=== PATIENT | male | born 1985 | race Asian ===

== ENCOUNTER 2018-03-07 13:35 | Inpatient (IN) | END 2018-03-11 12:48 | disposition home or self-care (01) | DRG 602 ==

== ENCOUNTER 2018-05-19 23:58 | Emergency (ER) | END 2018-05-20 01:41 | disposition left against medical advice (07) ==

== ENCOUNTER 2018-08-08 14:16 | Inpatient (IN) | payer MEDICAID ==
[~2018-08-08] VITALS: Ht 185.4 cm; Wt 176.3 kg
[~2018-08-08 14:16] MED LIST: CLO15CR1 TOP; FURO40TA4 PO; LEVA15HF6 INH; Nicotine (14 Mg/24 Hr) TRANSDERM
[2018-08-08] MEDS ORDERED: ALBUTEROL 0.5% (NEB) 2.5 MG/0.5 ML AMP INH STA (14:34)
[2018-08-08] MEDS ORDERED: METHYLPREDNISOLONE 125 MG INJ IV STA (14:34)
[2018-08-08] MEDS ORDERED: IPRATROPIUM (NEB) 0.5 MG/2.5 ML AMP INH STA (14:34)
[2018-08-08] MEDS ORDERED: VANCOMYCIN 1 GM (PMX) 250 ML IVPB STA (15:17)
[2018-08-08] MEDS ORDERED: PIPER-TAZO 3.375 GM IV (PMX) 100 ML IVPB ONE (15:30)
[2018-08-08] MEDS ORDERED: NACL 0.9% 3 ML SYG IV SCH (17:30)
[2018-08-08] MEDS ORDERED: ONDANSETRON 4 MG INJ IV PRN (17:30)
--- NOTE | 2018-08-08 17:47 | HP ---
Date/Time of Note Date/Time of Note DATE: 08/08/18 TIME: 17:33 Assessment/Plan VTE Prophylaxis Pharmacological prophylaxis: LMWH Lines/Catheters IV Catheter Type (from [facility]): Saline Lock Assessment/Plan Assessment/Plan 32M morbidly obese presents with hypercapnic respiratory failure and PNA #Sepsis #Pneumonia - Bilateral patchy infiltrates on CXR, tachy to 120s, WBC 16. - Cautious IV fluids - IV ceftriaxone and azithromycin for CAP. - Unfortunately patient exceeds the weight limit for CT scanner. #Hypoxic and hypercapnic respiratory failure - Likely from obesity, exacerbated by pneumonia - Admit to ICU - Will trial BiPAP overnight; if unsuccessful may need intubation. DVT: lovenox GI: Protonix IV Result Diagram: 08/08/18 1551 08/08/18 1551 Results 24hrs Laboratory Tests Test 08/08/18 14:34 08/08/18 15:51 Blood Gas Specimen Source Blood arterial Arterial Blood Date Drawn 08/08/2018 3:14:48 PM Arterial Blood pH (Temp corrected) 7.206 *L Arterial Blood pCO2 (Temp correct) 102.4 *H Arterial Blood pO2 (Temp corrected) 71.5 L Arterial Blood HCO3 39.7 H Arterial Blood Base Excess 7.6 H Arterial Blood Oxygen Saturation 90.3 L James Test ACCEPTAB Arterial Blood Gas Puncture Site Right Radial Arterial Blood Carboxyhemoglobin 2.6 Arterial Blood Methemoglobin 0.2 Oxyhemoglobin Percent 87.8 L Blood Gas Temperature 37.0 Blood Gas Modality ROOM AIR FiO2 21.0 Blood Gas Critical Value Read Back DR. WALLACE Blood Gas Notified Whom Ghassan Blood Gas Notified Time 08/08/2018 3:24:18 PM White Blood Count 16.1 #H Red Blood Count 5.75 Hemoglobin 13.0 L Hematocrit 48.0 Mean Corpuscular Volume 83.5 Mean Corpuscular Hemoglobin 22.6 L Mean Corpuscular Hemoglobin Concent 27.1 L Red Cell Distribution Width 18.6 H Platelet Count 298 Mean Platelet Volume 8.7 Immature Granulocytes % 1.400 H Neutrophils % 75.5 Lymphocytes % 13.3 L Monocytes % 8.2 Eosinophils % 1.2 Basophils % 0.4 Nucleated Red Blood Cells % 1.5 H Immature Granulocytes # 0.230 H Neutrophils # 12.2 H Lymphocytes # 2.2 Monocytes # 1.3 H Eosinophils # 0.2 Basophils # 0.1 Nucleated Red Blood Cells # 0.3 H Prothrombin Time 14.8 Prothrombin Time Ratio 1.2 INR International Normalized Ratio 1.15 Activated Partial Thromboplast Time 37.9 H Sodium Level 139 Potassium Level 4.4 Chloride Level 94 L Carbon Dioxide Level 35 H Anion Gap 10 Blood Urea Nitrogen 15 Creatinine 0.83 Est Glomerular Filtrat Rate mL/min > 60 Glucose Level 117 Hemoglobin A1c 6.1 H Calcium Level 8.9 Total Bilirubin 0.5 Direct Bilirubin 0.00 Indirect Bilirubin 0.5 Aspartate Amino Transf (AST/SGOT) 24 Alanine Aminotransferase (ALT/SGPT) 16 Alkaline Phosphatase 135 H Troponin I < 0.012 Total Protein 10.0 H Albumin 4.3 Globulin 5.70 H Albumin/Globulin Ratio 0.75 Amylase Level 82 Lipase 38 HPI/ROS Admit Date/Time Admit Date/Time Aug 08, 2018 Hx of Present Illness Mr. eBebe is a morbidly obese man with ANDREW/OHS who presents with cough and s hortness of breath. Most of this history taken from ED staff and patient's family. patient is minim ally responsive. He was hospitalized here in February and Jun 2018 both times for severe hypercapnia which improved after a few days of BiPAP. [employer] won't pay for a BiPAP machine at home unless he gets a sleep study which he hasn't been able to do. So about a week ago a family friend gave him a used BiPAP machine which he has been using every night but the mask is too small. 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 About 2 days ago he developed cough productive of sputum. No fevers, no chills. Today he was unable to catch his breath at rest and so presented to the ED. He walked into the ED saturating 80% on room air and was placed on BiPAP at 100% FiO2. Also elevated temp to 100.0, tachy to 121. WBC was 16.1 and CXR showed multifocal patchy opacities. ROS Subjective hx not possible: pt non-verbal, pt critical PMH/Family/Social Past Medical History Obesity hypoventilation syndrome Obstructive sleep apnea (never had formal sleep study) Medications Current Medications IV Flush (NS 3 ml) 3 ml PER PROTOCOL IV ; Start 08/08/18 at 17:30; Status UNV Ondansetron HCl (Zofran Inj) 4 mg Q6H PRN IV NAUSEA; Start 08/08/18 at 17:30; Status UNV Pantoprazole (Protonix Iv) 40 mg DAILY@06 IV ; Start 08/09/18 at 06:00; Status UNV Enoxaparin Sodium (Lovenox) 40 mg DAILY SC ; Start 08/09/18 at 09:00; Status UNV Ceftriaxone Sodium 50 ml @ 100 mls/hr Q24H IVPB ; Start 08/08/18 at 17:30; Status UNV Azithromycin 250 ml @ 250 mls/hr Q24H IVPB ; Start 08/08/18 at 17:30; Status UNV Coded Allergies: No Known Drug Allergies (Verified Allergy, Mild, 08/08/18) Past Surgical History Past Surgical Hx: no surgical history Family History Significant Family History: no pertinent family hx Social History Works as security officer Alcohol Use: none Smoking Status: Former smoker (Recently quit smoking about 2 weeks ago. ) Drug Use: none Exam/Review of Systems Vital Signs Vitals Vital Signs Date Temp Pulse Resp B/P (MAP) Pulse Ox O2 O2 Flow FiO2 Time Delivery Rate 08/08/18 87 22 97 40 15:21 08/08/18 Nasal 4.0 15:03 Cannula 08/08/18 100.0 137/67 14:20 (90) Exam Exam Gen: Morbidly obese man sitting up in gurney on BiPAP. Neuro: Minimally responsive. Opens eyes to sternal rub, moves all extremities to stimulation. Doesn't answer questions or follow commands. Neck: Obese, no lymphadenopathy appreciated HEENT: Clear oropharynx, moist mucous membranes Card: Regular rate and rhythm, distant heart sounds Pulm: Distant lung sounds. Mechanical breath sounds bilaterally. Abd: Morbidly obese, soft, nontender. Ext: Bilateral LE with redness and chronic venous stasis changes. Skin: warm dry well perfused. ELIANE PEARSON MD Aug 08, 2018 17:46
[2018-08-08] MEDS ORDERED: AZITHROMYCIN 500MG/NS (PMX) 250 ML IVPB SCH ×2 (18:00→20:00)
[2018-08-08] MEDS ORDERED: CEFTRIAXONE 1 GM/50 ML (PMX) 50 ML IVPB SCH ×2 (18:30→22:00)
[2018-08-08 20:00] VITALS: PULSE 98
[2018-08-08 20:05] VITALS: BP 145/103
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
[2018-08-08 21:00] VITALS: BP 140/69; PULSE 109; RESP 22
[2018-08-08 22:00] VITALS: BP 136/93; PULSE 99; RESP 22
[2018-08-08 23:00] VITALS: BP 139/95; PULSE 96; RESP 18
[2018-08-08] MEDS ORDERED: LORAZEPAM 2 MG INJ IV ONE (23:00)
[2018-08-08] MEDS ORDERED: LORAZEPAM 2 MG INJ ONE (23:06)
[2018-08-08] MEDS: HALOPERIDOL 5 MG INJ IM PRN ×2 (23:20→23:56)
[2018-08-08] MEDS ORDERED: LORAZEPAM 2 MG INJ IV STA (23:44)
[2018-08-09] VITALS (35 sets, daily range): BP systolic 95–152; BP diastolic 45–92; PULSE 85–113; RESP 20–33; BMI 59.2
[2018-08-09] MEDS ORDERED: HYDROmorphONE 1 MG/ML SYG IV PRN
[2018-08-09] MEDS: PIPER-TAZO 3.375 GM IV (PMX) 100 ML IVPB SCH ×4 (00:26→18:24)
[2018-08-09] MEDS ORDERED: VANCOMYCIN IV PER PHARMACY XX SCH (01:00)
[2018-08-09] MEDS ORDERED: VANCOMYCIN HCL 2 GM in SOD CHLORIDE 0.9% 500 ML IVPB SCH (03:00)
[2018-08-09] MEDS ORDERED: PROPOFOL 100 ML ONE (05:06)
[2018-08-09] MEDS: PROPOFOL 100 ML IV SCH ×8 (05:40→23:00)
[2018-08-09] MEDS: FENTAnyl (DRIP) 1000 mcg/100mL 100 ML IV SCH (06:07)
[2018-08-09] MEDS: PANTOPRAZOLE 40 MG INJ IV SCH (06:19)
[2018-08-09] MEDS ORDERED: SUCCINYLCHOLINE CHLORIDE 100 MG/5 ML SYG IV ONE (07:00)
[2018-08-09] MEDS ORDERED: ETOMIDATE 20 MG INJ ONE (07:00)
[2018-08-09] MEDS ORDERED: LIDOCAINE 100 MG SYRINGE ONE (07:00)
[2018-08-09] MEDS ORDERED: ROCURONIUM 50 MG INJ ONE (07:00)
[2018-08-09] MEDS ORDERED: ENOXAPARIN 40 MG/0.4 ML SYG SC SCH (09:00)
[2018-08-09] MEDS ORDERED: MEROPENEM 1 GM/50ML(PMX) 50 ML IVPB SCH (09:00)
[2018-08-09] MEDS ORDERED: INFLUENZA VIRUS VACCINE 0.5 ML (DISPENSING) IM* ONE (10:00)
[2018-08-09] MEDS: FUROSEMIDE 40 MG INJ IV SCH ×2 (11:07→17:52)
--- NOTE | 2018-08-09 11:59 | PN ---
Date/Time of Note Date/Time of Note DATE: 08/09/18 TIME: 11:55 Assessment/Plan VTE Prophylaxis Risk score (from Ns)>0 risk: 6 [place] [facility] [place] SCD contraindicated: other (no) Pharmacological prophylaxis: LMWH Lines/Catheters IV Catheter Type (from [facility]): Peripheral IV Urinary Cath still in place: Yes Reason Cath still needed: other (indicate) (intubated) Assessment/Plan Assessment/Plan 32M morbidly obese presents with hypercapnic respiratory failure and pneumonia #Sepsis #Pneumonia - Bilateral patchy infiltrates on CXR, tachy to 120s, WBC 16. - Cautious IV fluids - IV ceftriaxone and azithromycin for CAP. - Also added zosyn; patient had restarted starting using an old BiPAP machine that may have been contaminated. - Dr Rivers consulted. - Sent legionella urine antigen, sputum culture. - Unfortunately patient exceeds the weight limit for CT scanner. #Hypoxic and hypercapnic respiratory failure - Likely from obesity, exacerbated by pneumonia - Intubated 08/09. - Very hypoxic; will try gentle IV diuresis. DVT: lovenox GI: Protonix IV Result Diagram: 08/09/18 0432 08/09/18 0432 Results 24hrs Laboratory Tests Test 08/08/18 14:34 08/08/18 15:51 08/08/18 18:05 08/08/18 19:19 Blood Gas Blood arterial Blood Specimen arterial Source Arterial Blood 08/08/2018 3:14: 08/08/2018 6:18 Date Drawn 48 PM :39 PM Arterial Blood 7.206 *L 7.206 *L pH (Temp corrected ) Arterial Blood 102.4 *H 84.4 *H pCO2 (Temp correct) Arterial Blood 71.5 L 89.3 pO2 (Temp corrected ) Arterial Blood 39.7 H 32.7 H HCO3 Arterial Blood 7.6 H 2.0 Base Excess Arterial Blood 90.3 L 94.9 L Oxygen Saturati on James Test ACCEPTAB ACCEPTAB Arterial Blood Right Radial Right Radial Gas Puncture Site Arterial 2.6 2.2 Blood Carboxyhe moglobin Arterial Blood 0.2 0.4 Methemoglobin Oxyhemoglobin 87.8 L 92.4 L Percent Blood Gas 37.0 37.0 Temperature Blood Gas ROOM AIR MASK - BIPAP Modality FiO2 21.[address] MADISON ELKINS MD Critical Value Read Back Blood Gas Ghassan MEJIA Notified Whom Blood Gas 08/08/2018 3:24: 08/08/2018 6:29 Notified Time 18 PM :00 PM White Blood 16.1 #H Count Red Blood Count 5.75 Hemoglobin 13.0 L Hematocrit 48.0 Mean 83.5 Corpuscular Volume Mean 22.6 L Corpuscular Hemoglobin Mean 27.1 L Corpuscular Hemoglobin Conc ent Red Cell 18.6 H Distribution Width Platelet Count 298 Mean Platelet 8.7 Volume Immature 1.400 H Granulocytes % Neutrophils % 75.5 Lymphocytes % 13.3 L Monocytes % 8.2 Eosinophils % 1.2 Basophils % 0.4 Nucleated Red 1.5 H Blood Cells % Immature 0.230 H Granulocytes # Neutrophils # 12.2 H Lymphocytes # 2.2 Monocytes # 1.3 H Eosinophils # 0.2 Basophils # 0.1 Nucleated Red 0.3 H Blood Cells # Prothrombin 14.8 Time Prothrombin 1.2 Time Ratio INR 1.15 International Normalized Rati o Activated 37.9 H Partial Thrombo plast Time Sodium Level 139 Potassium Level 4.4 Chloride Level 94 L Carbon Dioxide 35 H Level Anion Gap 10 Blood Urea 15 Nitrogen Creatinine 0.83 Est Glomerular > 60 Filtrat Rate mL/min Glucose Level 117 Hemoglobin A1c 6.1 H Calcium Level 8.9 Total Bilirubin 0.5 Direct 0.00 Bilirubin Indirect 0.5 Bilirubin Aspartate Amino 24 Transf (AST/SGO T) Alanine 16 Aminotransferas e (ALT/SGPT) Alkaline 135 H Phosphatase Troponin I < 0.012 Total Protein 10.0 H Albumin 4.3 Globulin 5.70 H Albumin/Globuli 0.75 n Ratio Amylase Level 82 Lipase 38 Blood Gas A-a 245.7 H O2 Differential Blood Gas 18.0 Respiration Rate Blood Gas 26 Actual Respiration Rat e Blood Gas 12 Pressure Support Blood Gas 20/8 IPAP/EPAP Ratio POC Venous 1.1 Lactate Test 08/08/18 20:21 08/08/18 22:30 08/09/18 04:00 08/09/18 04:32 Urine Color MEGAN Urine Clarity SLIGHTLY CLOUDY A Urine pH 5.0 Urine Specific 1.028 [place] Urine Ketones NEGATIVE Urine Nitrite NEGATIVE Urine Bilirubin NEGATIVE Urine NEGATIVE Urobilinogen Urine Leukocyte NEGATIVE Esterase Urine 1 Microscopic RBC Urine 1 Microscopic WBC Urine Mucus FEW A Urine 1+ H Hemoglobin Urine Glucose NEGATIVE Urine Total 3+ H Protein Blood Gas Blood arterial Blood Specimen arterial Source Arterial Blood 08/08/2018 10:30 08/09/2018 3:50 Date Drawn :54 PM :30 AM Arterial Blood 7.181 *L 7.174 *L pH (Temp corrected ) Arterial Blood 94.6 *H 105.0 *H pCO2 (Temp correct) Arterial Blood 91.6 76.8 L pO2 (Temp corrected ) Arterial Blood 34.6 H 37.8 H HCO3 Arterial Blood 3.1 H 5.5 H Base Excess Arterial Blood 95.0 92.2 L Oxygen Saturati on James Test N/A N/A Arterial Blood Right Radial Right Radial Gas Puncture Site Arterial 1.7 1.5 Blood Carboxyhe moglobin Arterial Blood 0.4 0.3 Methemoglobin Blood Gas A-a 305.8 H 235.5 H O2 Differential Oxyhemoglobin 93.0 90.5 L Percent Blood Gas 37.0 37.0 Temperature Blood Gas 24 30 Actual Respiration Rat e Blood Gas HFNC MASK - BIPAP Modality FiO2 70.0 60.0 Blood Gas Maureen Reddy RN Critical Value Read Back Blood Gas [facility] Notified Whom Blood Gas 08/08/2018 10:44 08/09/2018 4:03 Notified Time :02 PM :23 AM Blood Gas 30.0 Respiration Rate Blood Gas Tidal 519.0 Volume Blood Gas 20/8 IPAP/EPAP Ratio White Blood 17.7 H Count Red Blood Count 5.22 Hemoglobin 11.8 L Hematocrit 44.4 Mean 85.1 Corpuscular Volume Mean 22.6 L Corpuscular Hemoglobin Mean 26.6 L Corpuscular Hemoglobin Conc ent Red Cell 17.2 H Distribution Width Platelet Count 275 Mean Platelet 8.6 Volume Immature 2.500 H Granulocytes % Neutrophils % 88.1 H Lymphocytes % 5.6 L Monocytes % 3.6 Eosinophils % 0.0 Basophils % 0.2 Nucleated Red 1.6 H Blood Cells % Immature 0.450 H Granulocytes # Neutrophils # 15.6 H Lymphocytes # 1.0 Monocytes # 0.6 Eosinophils # 0.0 Basophils # 0.0 Nucleated Red 0.3 H Blood Cells # Sodium Level 145 H Potassium Level 5.4 H Chloride Level 95 L Carbon Dioxide 37 H Level Anion Gap 13 Blood Urea 16 Nitrogen Creatinine 0.79 Est Glomerular > 60 Filtrat Rate mL/min Glucose Level 139 Hemoglobin A1c 6.1 H Calcium Level 8.9 Phosphorus 4.8 Level Magnesium Level 2.2 Total Bilirubin 0.3 Direct 0.00 Bilirubin Indirect 0.3 Bilirubin Aspartate Amino 27 Transf (AST/SGO T) Alanine 14 Aminotransferas e (ALT/SGPT) Alkaline 126 H Phosphatase Total Protein 9.1 H Albumin 3.9 Globulin 5.20 H Albumin/Globuli 0.75 n Ratio Test 08/09/18 07:00 08/09/18 10:00 Blood Gas Blood arterial Blood arterial Specimen Source Arterial Blood 08/09/2018 7:14: 08/09/2018 10:22 Date Drawn 36 AM :00 AM Arterial Blood 7.190 *L 7.307 L pH (Temp corrected ) Arterial Blood 99.6 *H 68.9 H pCO2 (Temp correct) Arterial Blood 122.9 H 149.4 H pO2 (Temp corrected ) Arterial Blood 37.2 H 33.7 H HCO3 Arterial Blood 5.5 H 5.3 H Base Excess Arterial Blood 98.0 99.0 H Oxygen Saturati on James Test ACCEPTAB ACCEPTAB Arterial Blood Right Radial Right Radial Gas Puncture Site Arterial 1.3 0.9 Blood Carboxyhe moglobin Arterial Blood 0.3 0.4 Methemoglobin Blood Gas A-a 490.5 H 494.7 H O2 Differential Oxyhemoglobin 96.4 97.7 Percent Blood Gas 37.0 37.0 Temperature Blood Gas 24.0 24.0 Respiration Rate Blood Gas 24 24 Actual Respiration Rat e Blood Gas VENT - AC VENT - AC Modality FiO2 100.0 100.0 Blood Gas Tidal 500.0 500.0 Volume Blood Gas Low 5.0 5.0 PEEP Setting Blood Gas VERNON BOTELLO Critical Value Read Back Blood Gas TM TM Notified Whom Blood Gas 08/09/2018 7:37: 08/09/2018 10:32 Notified Time 15 AM :00 AM Subjective 24 Hr Interval Summary Free Text/Dictation Patient went into worsening hypercapnic respiratory failure last night, intubated. Today still minimally responsive, intubated. Mother at bedside; I updated her on the plan. Exam/Review of Systems Vital Signs Vitals Vital Signs Date Temp Pulse Resp B/P (MAP) Pulse Ox O2 O2 Flow FiO2 Time Delivery Rate 08/09/18 89 24 107/63 98 Mechanical 10:00 (78) Ventilator 08/09/18 100 09:30 08/09/18 98.5 08:00 08/08/18 4.0 15:03 Intake and Output 08/08/18 08/08/18 08/09/18 1515:00 23:00 07:00 IntakeIntake Total 0 ml 853.88 ml OutputOutput Total 420 ml 695 ml BalanceBalance -420 ml 158.88 ml Exam Gen: Morbidly obese man lying in bed intubated. Neck: Obese, no lymphadenopathy appreciated HEENT: Clear oropharynx, moist mucous membranes Card: Regular rate and rhythm, distant heart sounds Pulm: Distant lung sounds. Mechanical breath sounds bilaterally. Abd: Morbidly obese, soft, nontender. Ext: Bilateral LE with redness and chronic venous stasis changes. Skin: warm dry well perfused. Medications Medications Current Medications IV Flush (NS 3 ml) 3 ml PER PROTOCOL IV ; Start 08/08/18 at 17:30 Ondansetron HCl (Zofran Inj) 4 mg Q6H PRN IV NAUSEA; Start 08/08/18 at 17:30 Pantoprazole (Protonix Iv) 40 mg DAILY@06 IV Last administered on 08/09/18at 06:19; Admin Dose 40 MG; Start 08/09/18 at 06:00 Haloperidol (Haldol) 5 mg PRN PRN IM AGGITATED Last administered on 08/08/18at 23:56; Admin Dose 5 MG; Start 08/08/18 at 22:00 Vancomycin HCl (Vanco Iv Per Pharmacy) VANCOMYCIN PER PHARMACY PER PROTOCOL XX ; Start 08/09/18 at 01:00 Piperacillin Sod/ Tazobactam Sod 100 ml @ 200 mls/hr Q6 IVPB Last administered on 08/09/18at 11:35; Admin Dose 200 MLS/HR; Start 08/09/18 at 00:00 Propofol 100 ml @ 6.111 mls/ hr Q12H IV Last administered on 08/09/18at 09:34; Admin Dose 36.666 MLS/HR; Start 08/09/18 at 05:30 Fentanyl 100 ml @ 2.5 mls/hr TITRATE IV Last administered on 08/09/18at 06:07; Admin Dose 2.5 MLS/HR; Start 08/09/18 at 06:30 Vancomycin HCl 2 gm/Sodium Chloride 500 ml @ 125 mls/hr Q12H IVPB ; Start 08/09/18 at 15:00 Enoxaparin Sodium (Lovenox) 40 mg Q12H SC ; Start 08/09/18 at 21:00 Furosemide (Lasix) 40 mg BID DIURETICS IV Last administered on 08/09/18at 11:07; Admin Dose 40 MG; Start 08/09/18 at 11:00 ELIANE PEARSON MD Aug 09, 2018 11:59
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
[2018-08-09] MEDS: VANCOMYCIN HCL 2 GM in SOD CHLORIDE 0.9% 500 ML IVPB SCH (14:44)
[2018-08-09] MEDS: ENOXAPARIN 40 MG/0.4 ML SYG SC SCH (20:25)
[2018-08-10] VITALS (35 sets, daily range): BP systolic 100–122; BP diastolic 47–72; PULSE 68–100; RESP 24
[2018-08-10] MEDS: PIPER-TAZO 3.375 GM IV (PMX) 100 ML IVPB SCH ×5 (00:07→23:17)
[2018-08-10] MEDS: PROPOFOL 100 ML IV SCH ×8 (01:54→22:02)
[2018-08-10] MEDS: VANCOMYCIN HCL 2 GM in SOD CHLORIDE 0.9% 500 ML IVPB SCH ×2 (02:26→15:09)
[2018-08-10] MEDS: FENTAnyl (DRIP) 1000 mcg/100mL 100 ML IV SCH (04:56)
[2018-08-10] MEDS: FUROSEMIDE 40 MG INJ IV SCH ×2 (06:00→17:56)
[2018-08-10] MEDS: PANTOPRAZOLE 40 MG INJ IV SCH (06:00)
--- NOTE | 2018-08-10 08:53 | CONS ---
Date/Time of Note Date/Time of Note DATE: 08/10/18 TIME: 08:51 Assessment/Plan Assessment/Plan Result Diagram: 08/10/18 0432 08/10/18 0432 Results 24hrs Laboratory Tests Test 08/09/18 10:00 08/10/18 04:32 Blood Gas Specimen Source Blood arterial Arterial Blood Date Drawn 08/09/2018 10:22:00 AM Arterial Blood pH (Temp corrected) 7.307 L Arterial Blood pCO2 (Temp correct) 68.9 H Arterial Blood pO2 (Temp corrected) 149.4 H Arterial Blood HCO3 33.7 H Arterial Blood Base Excess 5.3 H Arterial Blood Oxygen Saturation 99.0 H James Test ACCEPTAB Arterial Blood Gas Puncture Site Right Radial Arterial Blood Carboxyhemoglobin 0.9 Arterial Blood Methemoglobin 0.4 Blood Gas A-a O2 Differential 494.7 H Oxyhemoglobin Percent 97.7 Blood Gas Temperature 37.0 Blood Gas Respiration Rate 24.0 Blood Gas Actual Respiration Rate 24 Blood Gas Modality VENT - AC FiO2 100.0 Blood Gas Tidal Volume 500.0 Blood Gas Low PEEP Setting 5.0 Blood Gas Notified Whom TM Blood Gas Notified Time 08/09/2018 10:32:00 AM White Blood Count 14.8 H Red Blood Count 4.89 Hemoglobin 10.8 L Hematocrit 41.0 L Mean Corpuscular Volume 83.8 Mean Corpuscular Hemoglobin 22.1 L Mean Corpuscular Hemoglobin Concent 26.3 L Red Cell Distribution Width 17.4 H Platelet Count 246 Mean Platelet Volume 8.8 Immature Granulocytes % 0.800 H Neutrophils % 76.5 Lymphocytes % 14.4 L Monocytes % 7.6 Eosinophils % 0.3 Basophils % 0.4 Nucleated Red Blood Cells % 0.4 H Immature Granulocytes # 0.120 H Neutrophils # 11.3 H Lymphocytes # 2.1 Monocytes # 1.1 H Eosinophils # 0.1 Basophils # 0.1 Nucleated Red Blood Cells # 0.1 H Sodium Level 147 H Potassium Level 3.9 Chloride Level 95 L Carbon Dioxide Level 38 H Anion Gap 14 H Blood Urea Nitrogen 27 #H Creatinine 1.03 Est Glomerular Filtrat Rate mL/min > 60 Glucose Level 124 Calcium Level 8.9 Magnesium Level 2.1 Total Bilirubin 0.2 Direct Bilirubin 0.00 Indirect Bilirubin 0.2 Aspartate Amino Transf (AST/SGOT) 21 Alanine Aminotransferase (ALT/SGPT) 23 Alkaline Phosphatase 97 Total Protein 7.8 # Albumin 3.3 Globulin 4.50 H Albumin/Globulin Ratio 0.73 Consultation Date/Type/Reason Admit Date/Time Aug 08, 2018 Date of Consultation: Aug 09, 2018 Type of Consult Pulmonary/critical care Consult dictated by mistake on last admission chart review. Please refer to last admission for consult note. Past Medical History Medications Current Medications IV Flush (NS 3 ml) 3 ml PER PROTOCOL IV ; Start 08/08/18 at 17:30 Ondansetron HCl (Zofran Inj) 4 mg Q6H PRN IV NAUSEA; Start 08/08/18 at 17:30 Pantoprazole (Protonix Iv) 40 mg DAILY@06 IV Last administered on 08/10/18at 06:00; Admin Dose 40 MG; Start 08/09/18 at 06:00 Haloperidol (Haldol) 5 mg PRN PRN IM AGGITATED Last administered on 08/08/18at 23:56; Admin Dose 5 MG; Start 08/08/18 at 22:00 Vancomycin HCl (Vanco Iv Per Pharmacy) VANCOMYCIN PER PHARMACY PER PROTOCOL XX ; Start 08/09/18 at 01:00 Piperacillin Sod/ Tazobactam Sod 100 ml @ 200 mls/hr Q6 IVPB Last administered on 08/10/18at 06:02; Admin Dose 200 MLS/HR; Start 08/09/18 at 00:00 Propofol 100 ml @ 6.111 mls/ hr Q12H IV Last administered on 08/10/18at 07:05; Admin Dose 30.555 MLS/HR; Start 08/09/18 at 05:30 Fentanyl 100 ml @ 2.5 mls/hr TITRATE IV Last administered on 08/10/18at 04:56; Admin Dose 5 MLS/HR; Start 08/09/18 at 06:30 Vancomycin HCl 2 gm/Sodium Chloride 500 ml @ 125 mls/hr Q12H IVPB Last administered on 08/10/18 02:26; Admin Dose 125 MLS/HR; Start 08/09/18 at 15:00 Enoxaparin Sodium (Lovenox) 40 mg Q12H SC Last administered on 08/09/18at 20:25; Admin Dose 40 MG; Start 08/09/18 at 21:00 Furosemide (Lasix) 40 mg BID DIURETICS IV Last administered on 1/24/19at 06:00; Admin Dose 40 MG; Start 08/09/18 at 11:00 Miscellaneous Information (*Rx Drug Level Order Reminder*) VANCO TROUGH @ 1,400 ONCE ONCE XX ; Start 08/10/18 at 14:00; Stop 08/10/18 at 14:01 Allergies: Coded Allergies: No Known Drug Allergies (Verified Allergy, Mild, 08/08/18) Past Surgical History Past Surgical Hx: no surgical history Social History Alcohol Use: none Smoking Status: Former smoker Drug Use: none Exam/Review of Systems Vital Signs Vitals Vital Signs Date Temp Pulse Resp B/P (MAP) Pulse Ox O2 O2 Flow FiO2 Time Delivery Rate 08/10/18 68 24 112/57 96 Mechanical 06:00 (75) Ventilator 08/10/18 65 05:10 08/10/18 97.4 00:00 08/08/18 4.0 15:03 Intake and Output 08/09/18 08/09/18 08/10/18 1414:59 22:59 06:59 IntakeIntake Total 422.88 ml 1015.03 ml 610.142 ml OutputOutput Total 1400 ml 2500 ml 785 ml BalanceBalance -977.12 ml -1484.97 ml -174.858 ml Medications Medications Current Medications IV Flush (NS 3 ml) 3 ml PER PROTOCOL IV ; Start 08/08/18 at 17:30 Ondansetron HCl (Zofran Inj) 4 mg Q6H PRN IV NAUSEA; Start 08/08/18 at 17:30 Pantoprazole (Protonix Iv) 40 mg DAILY@06 IV Last administered on 08/10/18at 06:00; Admin Dose 40 MG; Start 08/09/18 at 06:00 Haloperidol (Haldol) 5 mg PRN PRN IM AGGITATED Last administered on 08/08/18at 23:56; Admin Dose 5 MG; Start 08/08/18 at 22:00 Vancomycin HCl (Vanco Iv Per Pharmacy) VANCOMYCIN PER PHARMACY PER PROTOCOL XX ; Start 08/09/18 at 01:00 Piperacillin Sod/ Tazobactam Sod 100 ml @ 200 mls/hr Q6 IVPB Last administered on 08/10/18at 06:02; Admin Dose 200 MLS/HR; Start 08/09/18 at 00:00 Propofol 100 ml @ 6.111 mls/ hr Q12H IV Last administered on 08/10/18 07:05; Admin Dose 30.555 MLS/HR; Start 08/09/18 at 05:30 Fentanyl 100 ml @ 2.5 mls/hr TITRATE IV Last administered on 08/10/18 04:56; Admin Dose 5 MLS/HR; Start 08/09/18 at 06:30 Vancomycin HCl 2 gm/Sodium Chloride 500 ml @ 125 mls/hr Q12H IVPB Last administered on 08/10/18at 02:26; Admin Dose 125 MLS/HR; Start 08/09/18 at 15:00 Enoxaparin Sodium (Lovenox) 40 mg Q12H SC Last administered on 08/09/18at 20:25; Admin Dose 40 MG; Start 08/09/18 at 21:00 Furosemide (Lasix) 40 mg BID DIURETICS IV Last administered on 08/10/18 06:00; Admin Dose 40 MG; Start 08/09/18 at 11:00 Miscellaneous Information (*Rx Drug Level Order Reminder*) VANCO TROUGH @ 1,400 ONCE ONCE XX ; Start 08/10/18 at 14:00; Stop 08/10/18 at 14:01 TAVIA KING Aug 10, 2018 08:53
--- NOTE | 2018-08-10 08:56 | CONS ---
Assessment/Plan Assessment/Plan Assessment/Plan Ventilator setting; AC of 24, tidal volume 500, PEEP of 5, 65% FiO2. Patient is currently on fentanyl 50 mics per hour, propofol 25 mics per kilogram per minute. Assessment and recommendations; 1. Patient admitted with recurrent severe hypercapnic respiratory failure due to underlying morbid obesity/sleep apnea hypoventilation syndrome. 2. Some element of pneumonia and CHF. 3. Interstitial lung disease. 4. Persistent hypoxemia. 5. Apparent failure of BiPAP at home. Continue current supportive care. Increase PEEP to 10. Obtain ABG. Further recommendations once ABG is obtained. Obtain follow-up chest x-ray 24 hours. 35 minutes of critical care time was spent evaluating the patient. Result Diagram: 08/10/18 0432 08/10/18 0432 Results 24hrs Laboratory Tests Test 08/09/18 10:00 08/10/18 04:32 Blood Gas Specimen Source Blood arterial Arterial Blood Date Drawn 08/09/2018 10:22:00 AM Arterial Blood pH (Temp corrected) 7.307 L Arterial Blood pCO2 (Temp correct) 68.9 H Arterial Blood pO2 (Temp corrected) 149.4 H Arterial Blood HCO3 33.7 H Arterial Blood Base Excess 5.3 H Arterial Blood Oxygen Saturation 99.0 H James Test ACCEPTAB Arterial Blood Gas Puncture Site Right Radial Arterial Blood Carboxyhemoglobin 0.9 Arterial Blood Methemoglobin 0.4 Blood Gas A-a O2 Differential 494.7 H Oxyhemoglobin Percent 97.7 Blood Gas Temperature 37.0 Blood Gas Respiration Rate 24.0 Blood Gas Actual Respiration Rate 24 Blood Gas Modality VENT - AC FiO2 100.0 Blood Gas Tidal Volume 500.0 Blood Gas Low PEEP Setting 5.0 Blood Gas Notified Whom TM Blood Gas Notified Time 08/09/2018 10:32:00 AM White Blood Count 14.8 H Red Blood Count 4.89 Hemoglobin 10.8 L Hematocrit 41.0 L Mean Corpuscular Volume 83.8 Mean Corpuscular Hemoglobin 22.1 L Mean Corpuscular Hemoglobin Concent 26.3 L Red Cell Distribution Width 17.4 H Platelet Count 246 Mean Platelet Volume 8.8 Immature Granulocytes % 0.800 H Neutrophils % 76.5 Lymphocytes % 14.4 L Monocytes % 7.6 Eosinophils % 0.3 Basophils % 0.4 Nucleated Red Blood Cells % 0.4 H Immature Granulocytes # 0.120 H Neutrophils # 11.3 H Lymphocytes # 2.1 Monocytes # 1.1 H Eosinophils # 0.1 Basophils # 0.1 Nucleated Red Blood Cells # 0.1 H Sodium Level 147 H Potassium Level 3.9 Chloride Level 95 L Carbon Dioxide Level 38 H Anion Gap 14 H Blood Urea Nitrogen 27 #H Creatinine 1.03 Est Glomerular Filtrat Rate mL/min > 60 Glucose Level 124 Calcium Level 8.9 Magnesium Level 2.1 Total Bilirubin 0.2 Direct Bilirubin 0.00 Indirect Bilirubin 0.2 Aspartate Amino Transf (AST/SGOT) 21 Alanine Aminotransferase (ALT/SGPT) 23 Alkaline Phosphatase 97 Total Protein 7.8 # Albumin 3.3 Globulin 4.50 H Albumin/Globulin Ratio 0.73 Consultation Date/Type/Reason Admit Date/Time Aug 08, 2018 at 17:18 Initial Consult Date 08/09/18 Type of Consult Pulmonary/critical care Consult dictated by mistake on last admission chart review. Please refer to last admission for consult note. 24 HR Interval Summary Free Text/Dictation Patient's condition remains critical. Still requiring fairly high FiO2 for hypoxemia. Patient however has remained hemodynamically stable. General exam; young male, morbidly obese, orally intubated, sedated, currently in no distress. Exam/Review of Systems Vital Signs Vitals Vital Signs Date Temp Pulse Resp B/P (MAP) Pulse Ox O2 O2 Flow FiO2 Time Delivery Rate 08/10/18 68 24 112/57 96 Mechanical 06:00 (75) Ventilator 08/10/18 65 05:10 08/10/18 97.4 00:00 08/08/18 4.0 15:03 Intake and Output 08/09/18 08/09/18 08/10/18 1414:59 22:59 06:59 IntakeIntake Total 422.88 ml 1015.03 ml 610.142 ml OutputOutput Total 1400 ml 2500 ml 785 ml BalanceBalance -977.12 ml -1484.97 ml -174.858 ml Exam H EENT exam; supple neck, JVD difficult to see because of short neck. No neck masses. Orally intubated. Patient has fair dentition. Pupils are midsize. Chest exam; diminished breath sounds throughout. S1-S2 audible, no murmurs. Regular rhythm. Abdomen exam; soft, protuberant. Organomegaly difficult to assess. Bowel so unds audible. Extremity exam; no peripheral edema or clubbing. Pulses 1+. LOOM FIXER exam; patient is sedated. Medications Medications Current Medications IV Flush (NS 3 ml) 3 ml PER PROTOCOL IV ; Start 08/08/18 at 17:30 Ondansetron HCl (Zofran Inj) 4 mg Q6H PRN IV NAUSEA; Start 08/08/18 at 17:30 Pantoprazole (Protonix Iv) 40 mg DAILY@06 IV Last administered on 08/10/18at 06:00; Admin Dose 40 MG; Start 08/09/18 at 06:00 Haloperidol (Haldol) 5 mg PRN PRN IM AGGITATED Last administered on 08/08/18at 23:56; Admin Dose 5 MG; Start 08/08/18 at 22:00 Vancomycin HCl (Vanco Iv Per Pharmacy) VANCOMYCIN PER PHARMACY PER PROTOCOL XX ; Start 08/09/18 at 01:00 Piperacillin Sod/ Tazobactam Sod 100 ml @ 200 mls/hr Q6 IVPB Last administered on 08/10/18at 06:02; Admin Dose 200 MLS/HR; Start 08/09/18 at 00:00 Propofol 100 ml @ 6.111 mls/ hr Q12H IV Last administered on 08/10/18at 07:05; Admin Dose 30.555 MLS/HR; Start 08/09/18 at 05:30 Fentanyl 100 ml @ 2.5 mls/hr TITRATE IV Last administered on 08/10/18 04:56; Admin Dose 5 MLS/HR; Start 08/09/18 at 06:30 Vancomycin HCl 2 gm/Sodium Chloride 500 ml @ 125 mls/hr Q12H IVPB Last administered on 08/10/18at 02:26; Admin Dose 125 MLS/HR; Start 08/09/18 at 15:00 Enoxaparin Sodium (Lovenox) 40 mg Q12H SC Last administered on 08/09/18at 20:25; Admin Dose 40 MG; Start 08/09/18 at 21:00 Furosemide (Lasix) 40 mg BID DIURETICS IV Last administered on 08/10/18 06:00; Admin Dose 40 MG; Start 08/09/18 at 11:00 Miscellaneous Information (*Rx Drug Level Order Reminder*) VANCO TROUGH @ 1,400 ONCE ONCE XX ; Start 08/10/18 at 14:00; Stop 08/10/18 at 14:01 Date/Time of Note Date/Time of Note DATE: 08/10/18 TIME: 08:54 TAVIA KING Aug 10, 2018 08:56
[2018-08-10] MEDS: ENOXAPARIN 40 MG/0.4 ML SYG SC SCH ×2 (09:42→22:04)
[2018-08-10] MEDS: SOD CHLORIDE 0.45% 1,000 ML IV SCH (09:47)
--- NOTE | 2018-08-10 14:52 | CONS ---
Assessment/Plan Assessment/Plan Hospital Course (Demo Recall) No acute events overnight patient remains intubated sedated in no distress he is afebrile. WBC today 14.8 platelets 246 neutrophils 76.5 BUN 27 creatinine 1.03 Microbiology: Blood culture urine culture remain negative MRSA swab negative, influenza swab negative Indwelling: Endotracheal tube NG tube Santiago catheter Antimicrobials: Vancomycin, Zosyn Physical examination: This is a morbidly obese well-developed middle-aged man who is intubated sedated in no distress. Head atraumatic normocephalic, bucal mucosa dry, neck is obese. Chest rise symmetrical breath sounds diminished. Heart: S1-S2. Abdomen obese distended bowel sounds hypoactive. Extremities with edema Assessment: 1. Acute hypoxemic respiratory failure, possible aspiration 2. Morbid obesity 3. Sleep apnea with hypoventilation syndrome Plan: We will discontinue vancomycin, continue Zosyn, send sputum culture, co ntinue vent management per pulmonary recommendations DEBORAH RN Consultation Date/Type/Reason Admit Date/Time Aug 08, 2018 at 17:18 Initial Consult Date 08/09/18 Type of Consult ID Date/Time of Note DATE: 08/10/18 TIME: 14:52 Exam/Review of Systems Exam Vitals Vital Signs Date Temp Pulse Resp B/P (MAP) Pulse Ox O2 O2 Flow FiO2 Time Delivery Rate 08/10/18 71 24 96 65 13:15 08/10/18 102/59 Mechanical 10:00 (73) Ventilator 08/10/18 97.3 08:00 08/08/18 4.0 15:03 Intake and Output 08/09/18 08/09/18 08/10/18 1515:00 23:00 07:00 IntakeIntake Total 408.1 ml 998.43 ml 626.842 ml OutputOutput Total 1600 ml 2400 ml 685 ml BalanceBalance -1191.9 ml -1401.57 ml -58.158 ml Results Result Diagram: 08/10/182 08/10/18431 Results 24hrs Laboratory Tests Test 08/10/18 04:32 08/10/18 10:30 08/10/18 14:00 White Blood Count 14.8 H Red Blood Count 4.89 Hemoglobin 10.8 L Hematocrit 41.0 L Mean Corpuscular Volume 83.8 Mean Corpuscular Hemoglobin 22.1 L Mean Corpuscular 26.3 L Hemoglobin Concent Red Cell Distribution Width 17.4 H Platelet Count 246 Mean Platelet Volume 8.8 Immature Granulocytes % 0.800 H Neutrophils % 76.5 Lymphocytes % 14.4 L Monocytes % 7.6 Eosinophils % 0.3 Basophils % 0.4 Nucleated Red Blood Cells % 0.4 H Immature Granulocytes # 0.120 H Neutrophils # 11.3 H Lymphocytes # 2.1 Monocytes # 1.1 H Eosinophils # 0.1 Basophils # 0.1 Nucleated Red Blood Cells # 0.1 H Sodium Level 147 H Potassium Level 3.9 Chloride Level 95 L Carbon Dioxide Level 38 H Anion Gap 14 H Blood Urea Nitrogen 27 #H Creatinine 1.03 Est Glomerular Filtrat > 60 Rate mL/min Glucose Level 124 Calcium Level 8.9 Magnesium Level 2.1 Total Bilirubin 0.2 Direct Bilirubin 0.00 Indirect Bilirubin 0.2 Aspartate Amino 21 Transf (AST/SGOT) Alanine 23 Aminotransferase (ALT/SGPT) Alkaline Phosphatase 97 Total Protein 7.8 # Albumin 3.3 Globulin 4.50 H Albumin/Globulin Ratio 0.73 Blood Gas Specimen Source Blood arterial Arterial Blood Date Drawn 08/10/2018 10:25:17 AM Arterial Blood pH 7.362 (Temp corrected) Arterial Blood pCO2 77.2 H (Temp correct) Arterial Blood pO2 86.9 (Temp corrected) Arterial Blood HCO3 42.8 *H Arterial Blood Base Excess 14.0 H Arterial Blood 96.1 Oxygen Saturation James Test ACCEPTAB Arterial Blood Gas Right Radial Puncture Site Arterial 0.5 Blood Carboxyhemoglobin Arterial Blood 0.3 Methemoglobin Blood Gas A-a O2 292.6 H Differential Oxyhemoglobin Percent 95.3 Blood Gas Temperature 37.0 Blood Gas Respiration Rate 24.0 Blood Gas Actual 24 Respiration Rate Blood Gas Modality VENT - AC FiO2 65.0 Blood Gas Tidal Volume 500.0 Blood Gas Low PEEP Setting 10.0 Blood Gas Critical Value RICARDO BOTELLO Read Back Blood Gas Notified Whom TM Blood Gas Notified Time 08/10/2018 10:33:56 AM Vancomycin Level Trough 19.1 JOCELYN VILLALTA NP Aug 10, 2018 14:52
--- NOTE | 2018-08-10 16:56 | PN ---
Date/Time of Note Date/Time of Note DATE: 08/10/18 TIME: 16:52 Assessment/Plan VTE Prophylaxis Risk score (from Ns)>0 risk: 6 SCD applied (from [facility] [place]): No SCD contraindicated: low risk/ambulating Pharmacological prophylaxis: LMWH Lines/Catheters IV Catheter Type (from [facility]): Peripheral IV Urinary Cath still in place: Yes Reason Cath still needed: other (indicate) (intubated) Assessment/Plan Assessment/Plan 32M morbidly obese presents with hypercapnic respiratory failure and pneumonia #Sepsis #Pneumonia - Bilateral patchy infiltrates on CXR, tachy to 120s, WBC 16 on admission. - IV vanc and zosyn, Abx per ID - Dr Rivers consulted. - Sent legionella urine antigen, sputum culture. - Unfortunately patient exceeds the weight limit for CT scanner. #Hypoxic and hypercapnic respiratory failure - Likely from obesity, exacerbated by pneumonia - Intubated 08/09. - Very hypoxic; will try gentle IV diuresis. - Dr Pineda consulted DVT: lovenox GI: Protonix IV Result Diagram: 08/10/18 0432 08/10/18 0432 Results 24hrs Laboratory Tests Test 08/10/18 04:32 08/10/18 10:30 08/10/18 14:00 White Blood Count 14.8 H Red Blood Count 4.89 Hemoglobin 10.8 L Hematocrit 41.0 L Mean Corpuscular Volume 83.8 Mean Corpuscular Hemoglobin 22.1 L Mean Corpuscular 26.3 L Hemoglobin Concent Red Cell Distribution Width 17.4 H Platelet Count 246 Mean Platelet Volume 8.8 Immature Granulocytes % 0.800 H Neutrophils % 76.5 Lymphocytes % 14.4 L Monocytes % 7.6 Eosinophils % 0.3 Basophils % 0.4 Nucleated Red Blood Cells % 0.4 H Immature Granulocytes # 0.120 H Neutrophils # 11.3 H Lymphocytes # 2.1 Monocytes # 1.1 H Eosinophils # 0.1 Basophils # 0.1 Nucleated Red Blood Cells # 0.1 H Sodium Level 147 H Potassium Level 3.9 Chloride Level 95 L Carbon Dioxide Level 38 H Anion Gap 14 H Blood Urea Nitrogen 27 #H Creatinine 1.03 Est Glomerular Filtrat > 60 Rate mL/min Glucose Level 124 Calcium Level 8.9 Magnesium Level 2.1 Total Bilirubin 0.2 Direct Bilirubin 0.00 Indirect Bilirubin 0.2 Aspartate Amino 21 Transf (AST/SGOT) Alanine 23 Aminotransferase (ALT/SGPT) Alkaline Phosphatase 97 Total Protein 7.8 # Albumin 3.3 Globulin 4.50 H Albumin/Globulin Ratio 0.73 Blood Gas Specimen Source Blood arterial Arterial Blood Date Drawn 08/10/2018 10:25:17 AM Arterial Blood pH 7.362 (Temp corrected) Arterial Blood pCO2 77.2 H (Temp correct) Arterial Blood pO2 86.9 (Temp corrected) Arterial Blood HCO3 42.8 *H Arterial Blood Base Excess 14.0 H Arterial Blood 96.1 Oxygen Saturation James Test ACCEPTAB Arterial Blood Gas Right Radial Puncture Site Arterial 0.5 Blood Carboxyhemoglobin Arterial Blood 0.3 Methemoglobin Blood Gas A-a O2 292.6 H Differential Oxyhemoglobin Percent 95.3 Blood Gas Temperature 37.0 Blood Gas Respiration Rate 24.0 Blood Gas Actual 24 Respiration Rate Blood Gas Modality VENT - AC FiO2 65.0 Blood Gas Tidal Volume 500.0 Blood Gas Low PEEP Setting 10.0 Blood Gas Critical Value RICARDO BOTELLO Read Back Blood Gas Notified Whom TM Blood Gas Notified Time 08/10/2018 10:33:56 AM Vancomycin Level Trough 19.1 Subjective 24 Hr Interval Summary Free Text/Dictation No acute overnight events. Still intubated, sedated. Exam/Review of Systems Exam Vitals Gen: Morbidly obese man lying in bed intubated. Neck: Obese, no lymphadenopathy appreciated HEENT: Clear oropharynx, moist mucous membranes Card: Regular rate and rhythm, distant heart sounds Pulm: Distant lung sounds. Mechanical breath sounds bilaterally. Abd: Morbidly obese, soft, nontender. Ext: Bilateral LE with redness and chronic venous stasis changes. Skin: warm dry well perfused. Results Results 24hrs Laboratory Tests Test 08/10/18 04:32 08/10/18 10:30 08/10/18 14:00 White Blood Count 14.8 H Red Blood Count 4.89 Hemoglobin 10.8 L Hematocrit 41.0 L Mean Corpuscular Volume 83.8 Mean Corpuscular Hemoglobin 22.1 L Mean Corpuscular 26.3 L Hemoglobin Concent Red Cell Distribution Width 17.4 H Platelet Count 246 Mean Platelet Volume 8.8 Immature Granulocytes % 0.800 H Neutrophils % 76.5 Lymphocytes % 14.4 L Monocytes % 7.6 Eosinophils % 0.3 Basophils % 0.4 Nucleated Red Blood Cells % 0.4 H Immature Granulocytes # 0.120 H Neutrophils # 11.3 H Lymphocytes # 2.1 Monocytes # 1.1 H Eosinophils # 0.1 Basophils # 0.1 Nucleated Red Blood Cells # 0.1 H Sodium Level 147 H Potassium Level 3.9 Chloride Level 95 L Carbon Dioxide Level 38 H Anion Gap 14 H Blood Urea Nitrogen 27 #H Creatinine 1.03 Est Glomerular Filtrat > 60 Rate mL/min Glucose Level 124 Calcium Level 8.9 Magnesium Level 2.1 Total Bilirubin 0.2 Direct Bilirubin 0.00 Indirect Bilirubin 0.2 Aspartate Amino 21 Transf (AST/SGOT) Alanine 23 Aminotransferase (ALT/SGPT) Alkaline Phosphatase 97 Total Protein 7.8 # Albumin 3.3 Globulin 4.50 H Albumin/Globulin Ratio 0.73 Blood Gas Specimen Source Blood arterial Arterial Blood Date Drawn 08/10/2018 10:25:17 AM Arterial Blood pH 7.362 (Temp corrected) Arterial Blood pCO2 77.2 H (Temp correct) Arterial Blood pO2 86.9 (Temp corrected) Arterial Blood HCO3 42.8 *H Arterial Blood Base Excess 14.0 H Arterial Blood 96.1 Oxygen Saturation James Test ACCEPTAB Arterial Blood Gas Right Radial Puncture Site Arterial 0.5 Blood Carboxyhemoglobin Arterial Blood 0.3 Methemoglobin Blood Gas A-a O2 292.6 H Differential Oxyhemoglobin Percent 95.3 Blood Gas Temperature 37.0 Blood Gas Respiration Rate 24.0 Blood Gas Actual 24 Respiration Rate Blood Gas Modality VENT - AC FiO2 65.0 Blood Gas Tidal Volume 500.0 Blood Gas Low PEEP Setting 10.0 Blood Gas Critical Value RICARDO BOTELLO Read Back Blood Gas Notified Whom TM Blood Gas Notified Time 08/10/2018 10:33:56 AM Vancomycin Level Trough 19.1 ELIANE PEARSON MD Aug 10, 2018 16:56
[2018-08-11] VITALS (35 sets, daily range): BP systolic 107–131; BP diastolic 53–75; PULSE 68–92; RESP 24–28
[2018-08-11] MEDS: PROPOFOL 100 ML IV SCH ×8 (00:37→23:00)
[2018-08-11] MEDS: SOD CHLORIDE 0.45% 1,000 ML IV SCH ×2 (05:18→17:48)
[2018-08-11] MEDS: FUROSEMIDE 40 MG INJ IV SCH ×2 (05:19→17:42)
[2018-08-11] MEDS: PIPER-TAZO 3.375 GM IV (PMX) 100 ML IVPB SCH ×4 (05:19→23:48)
[2018-08-11] MEDS: FENTAnyl (DRIP) 1000 mcg/100mL 100 ML IV SCH (05:29)
[2018-08-11] MEDS ORDERED: VANCOMYCIN HCL 1.5 GM in SOD CHLORIDE 0.9% 250 ML IVPB SCH ×2 (06:00→09:00)
[2018-08-11] MEDS ORDERED: LANSOPRAZOLE 30 MG CAP PO SCH (06:00)
[2018-08-11] MEDS: ENOXAPARIN 40 MG/0.4 ML SYG SC SCH ×2 (09:16→21:27)
--- NOTE | 2018-08-11 09:41 | CONS ---
Consult Date/Type/Reason Admit Date/Time Aug 08, 2018 at 17:18 Initial Consult Date 08/09/18 Type of Consult Pulmonary Date/Time of Note DATE: 08/11/18 TIME: 09:39 Subjective Patient remained stable on mechanical ventilation FiO2 still at 65% with a PEEP of 10. Chest x-ray shows ongoing pulmonary edema. Objective Vital Signs Date Temp Pulse Resp B/P (MAP) Pulse Ox O2 O2 Flow FiO2 Time Delivery Rate 08/11/18 83 08:00 08/11/18 127/62 93 Mechanical 07:00 (83) Ventilator 08/11/18 24 65 05:30 08/10/18 98.6 20:00 08/08/18 4.0 15:03 Intake and Output 08/10/18 08/10/18 08/11/18 1515:00 23:00 07:00 IntakeIntake Total 1645.25 ml 1300.16 ml 1558.28 ml OutputOutput Total 1150 ml 1245 ml 680 ml BalanceBalance 495.25 ml 55.16 ml 878.28 ml Exam GENERAL: Morbidly obese young gentleman orally intubated on mechanical ventilation VITAL SIGNS: per chart NECK: Supple. No JVD or lymphadenopathy. CARDIAC EXAM: S1, S2. No added sounds or murmurs. CHEST: clear bilaterally, No added sounds, rales or wheezes ABDOMEN: Soft, nontender. No guarding or rebound. EXTREMITIES: No cyanosis, clubbing or edema. NEUROLOGIC: Generalized weakness. No focal deficits. Vent Setting Ventilator Support Mode: AC Fraction of Inspired Oxygen pe: 65 Positive End Expiratory Pressu: 10.0 Results/Medications Result Diagram: 08/11/18 0507 08/11/18 0507 Results 24 hrs Laboratory Tests Test 08/10/18 10:30 08/10/18 14:00 08/11/18 05:00 08/11/18 05:07 Blood Gas Blood arterial Blood arterial Specimen Source Arterial Blood 08/10/2018 10:25 08/11/2018 5:55: Date Drawn :17 AM 12 AM Arterial Blood 7.362 7.358 pH (Temp corrected) Arterial Blood 77.2 H 75.6 H pCO2 (Temp correct) Arterial Blood 86.9 82.2 pO2 (Temp corrected) Arterial Blood 42.8 *H 41.6 *H HCO3 Arterial Blood 14.0 H 12.9 H Base Excess Arterial Blood 96.1 94.7 L Oxygen Saturatio n James Test ACCEPTAB ACCEPTAB Arterial Blood Right Radial Right Radial Gas Puncture Site Arterial 0.5 0.5 Blood Carboxyhem oglobin Arterial Blood 0.3 0.4 Methemoglobin Blood Gas A-a O2 292.6 H 299.0 H Differential Oxyhemoglobin 95.3 93.8 Percent Blood Gas 37.0 37.0 Temperature Blood Gas 24.0 24.0 Respiration Rate Blood Gas Actual 24 24 Respiration Rate Blood Gas VENT - AC VENT - AC Modality FiO2 65.0 65.0 Blood Gas Tidal 500.0 500.0 Volume Blood Gas Low 10.0 10.0 PEEP Setting Blood Gas RICARDO BOTELLO WEST.N,R.N. Critical Value Read Back Blood Gas TM MOI GRANADOS Notified Whom Blood Gas 08/10/2018 10:33 08/11/2018 6:06: Notified Time :56 AM 10 AM Vancomycin Level 19.1 Trough Blood Gas 43.0 Inspiratory Pressure White Blood 12.5 H Count Red Blood Count 5.03 Hemoglobin 11.2 L Hematocrit 42.2 Mean Corpuscular 83.9 Volume Mean Corpuscular 22.3 L Hemoglobin Mean Corpuscular 26.5 L Hemoglobin Hannah nt Red Cell 18.0 H Distribution Width Platelet Count 245 Mean Platelet 8.9 Volume Immature 0.600 H Granulocytes % Neutrophils % 70.5 Lymphocytes % 16.9 Monocytes % 10.1 Eosinophils % 1.4 Basophils % 0.5 Nucleated Red 0.2 H Blood Cells % Immature 0.070 H Granulocytes # Neutrophils # 8.8 H Lymphocytes # 2.1 Monocytes # 1.3 H Eosinophils # 0.2 Basophils # 0.1 Nucleated Red 0.0 Blood Cells # Sodium Level 145 H Potassium Level 3.9 Chloride Level 94 L Carbon Dioxide 39 H Level Anion Gap 12 Blood Urea 26 H Nitrogen Creatinine 1.00 Est Glomerular > 60 Filtrat Rate mL/min Glucose Level 101 Calcium Level 8.6 Phosphorus Level 5.4 H Magnesium Level 2.0 Medications Current Medications IV Flush (NS 3 ml) 3 ml PER PROTOCOL IV ; Start 08/08/18 at 17:30 Ondansetron HCl (Zofran Inj) 4 mg Q6H PRN IV NAUSEA; Start 08/08/18 at 17:30 Haloperidol (Haldol) 5 mg PRN PRN IM AGGITATED Last administered on 08/08/18 23:56; Admin Dose 5 MG; Start 08/08/18 at 22:00 Vancomycin HCl (Vanco Iv Per Pharmacy) VANCOMYCIN PER PHARMACY PER PROTOCOL XX ; Start 08/09/18 at 01:00 Piperacillin Sod/ Tazobactam Sod 100 ml @ 200 mls/hr Q6 IVPB Last administered on 08/11/18 05:19; Admin Dose 200 MLS/HR; Start 08/09/18 at 00:00 Propofol 100 ml @ 6.111 mls/ hr Q12H IV Last administered on 08/11/18 09:10; Admin Dose 36.666 MLS/HR; Start 08/09/18 at 05:30 Fentanyl 100 ml @ 2.5 mls/hr TITRATE IV Last administered on 08/11/18 05:29; Admin Dose 3 MLS/HR; Start 08/09/18 at 06:30 Enoxaparin Sodium (Lovenox) 40 mg Q12H SC Last administered on 08/11/18 09:16; Admin Dose 40 MG; Start 08/09/18 at 21:00 Furosemide (Lasix) 40 mg BID DIURETICS IV Last administered on 08/11/18 05:19; Admin Dose 40 MG; Start 08/09/18 at 11:00 Sodium Chloride 1,000 ml @ 75 mls/hr [id number] IV Last administered on 08/11/18 05:18; Admin Dose 75 MLS/HR; Start 08/10/18 at 10:00 Lansoprazole (Prevacid) 30 mg DAILY@06 PO Last administered on 08/11/18 05:21; Admin Dose 30 MG; Start 08/11/18 at 06:00 Vancomycin HCl 1.5 gm/Sodium Chloride 250 ml @ 83.333 mls/ hr Q12H IVPB Last administered on 08/11/18 09:10; Admin Dose 83.333 MLS/HR; Start 08/11/18 at 09:00 Assessment/Plan Hospital Course (Demo Recall) Assessment 1. Acute on chronic hypoxemic and hypercapnic respiratory failure 2. Likely component of diastolic dysfunction 3. History of obesity hypoventilation syndrome and probable obstructive sleep apnea Plan 1. Continue mechanical ventilation decrease FiO2 as tolerated 2. Continue diuretics given ongoing pulmonary edema on chest x-ray 3. Tube feeding as tolerated 4. DVT and GI prophylaxis 5. Patient will require bilevel device prior to discharge Critical care time 40 minutes JUL[facility]ETH PUENTE MD, [facility] Aug 11, 2018 09:41
--- NOTE | 2018-08-11 10:06 | PN ---
Date/Time of Note Date/Time of Note DATE: 08/11/18 TIME: 10:04 Assessment/Plan VTE Prophylaxis Risk score (from Ns)>0 risk: 6 SCD applied (from Ns): No SCD contraindicated: other (no) Pharmacological prophylaxis: LMWH Lines/Catheters IV Catheter Type (from [facility]): Peripheral IV Urinary Cath still in place: Yes Reason Cath still needed: other (indicate) (intubated) Assessment/Plan Assessment/Plan 32M morbidly obese presents with hypercapnic respiratory failure and pneumonia #Sepsis #Pneumonia - Bilateral patchy infiltrates on CXR, tachy to 120s, WBC 16 on admission. - IV zosyn, Abx per ID - Dr Rivers consulted. - Sent legionella urine antigen, sputum culture. - Unfortunately patient exceeds the weight limit for CT scanner. #Hypoxic and hypercapnic respiratory failure - Likely from obesity, exacerbated by pneumonia - Intubated 08/09. - Very hypoxic; will try gentle IV diuresis. - Patient had echo 07/16 which showed preserved EF 50-55% - Dr Pineda consulted DVT: lovenox GI: Protonix IV Result Diagram: 08/11/18 0507 08/11/18 0507 Subjective 24 Hr Interval Summary Free Text/Dictation No acute overnight events. Patient still intubated, sedated. Exam/Review of Systems Exam Vitals Gen: Morbidly obese man lying in bed intubated. Neck: Obese, no lymphadenopathy appreciated HEENT: Clear oropharynx, moist mucous membranes Card: Regular rate and rhythm, distant heart sounds Pulm: Distant lung sounds. Mechanical breath sounds bilaterally. Abd: Morbidly obese, soft, nontender. Ext: Bilateral LE with redness and chronic venous stasis changes. Skin: warm dry well perfused. ELIANE PEARSON MD Aug 11, 2018 10:06
[2018-08-11] MEDS ORDERED: LIDOCAINE 1% (MPF) 5 ML VIAL SC ONE (11:30)
--- NOTE | 2018-08-11 13:52 | CONS ---
Assessment/Plan Assessment/Plan Hospital Course (Demo Recall) No acute changes overnight patient remains intubated sedated in no distress. He is getting PICC line. WBC today 12.5 platelets 245 neutrophils 70.5 BUN 26 creatinine 1 Chest x-ray this morning revealed right upper and right lower lobe cystic lucencies Microbiology: Blood culture urine culture remain negative MRSA swab negative, influenza swab negative, pending sputum culture Indwelling: Endotracheal tube NG tube Santiago catheter, PICC line Antimicrobials: Vancomycin, Zosyn Physical examination: This is a morbidly obese well-developed middle-aged man who is intubated sedated in no distress. Head atraumatic normocephalic, bucal mucosa dry, neck is obese. Chest rise symmetrical breath sounds diminished. Heart: S1-S2. Abdomen obese distended bowel sounds hypoactive. Extremities with edema Assessment: 1. Acute hypoxemic respiratory failure, possible aspiration 2. Morbid obesity 3. Sleep apnea with hypoventilation syndrome Plan: Remains unchanged, pending sputum culture, continue antibiotics, vent management per pulmonary DW RN Consultation Date/Type/Reason Admit Date/Time Aug 08, 2018 at 17:18 Initial Consult Date 08/09/18 Type of Consult ID Date/Time of Note DATE: 08/11/18 TIME: 13:50 Exam/Review of Systems Exam Vitals Vital Signs Date Temp Pulse Resp B/P (MAP) Pulse Ox O2 O2 Flow FiO2 Time Delivery Rate 08/11/18 77 113/54 95 Mechanical 13:00 (73) Ventilator 08/11/18 98.6 12:00 08/11/18 65 08:00 08/11/18 24 05:30 08/08/18 4.0 15:03 Intake and Output 08/10/18 08/10/18 08/11/18 1515:00 23:00 07:00 IntakeIntake Total 1645.25 ml 1300.16 ml 1558.28 ml OutputOutput Total 1150 ml 1245 ml 680 ml BalanceBalance 495.25 ml 55.16 ml 878.28 ml Results Result Diagram: 08/11/18 0507 08/11/18 0507 Results 24hrs Laboratory Tests Test 08/10/18 14:00 08/11/18 05:00 08/11/18 05:07 Vancomycin Level Trough 19.1 Blood Gas Specimen Source Blood arterial Arterial Blood Date Drawn 08/11/2018 5:55:12 AM Arterial Blood pH 7.358 (Temp corrected) Arterial Blood pCO2 75.6 H (Temp correct) Arterial Blood pO2 82.2 (Temp corrected) Arterial Blood HCO3 41.6 *H Arterial Blood Base Excess 12.9 H Arterial Blood 94.7 L Oxygen Saturation James Test ACCEPTAB Arterial Blood Gas Right Radial Puncture Site Arterial 0.5 Blood Carboxyhemoglobin Arterial Blood Methemoglobin 0.4 Blood Gas A-a O2 299.0 H Differential Oxyhemoglobin Percent 93.8 Blood Gas Temperature 37.0 Blood Gas Respiration Rate 24.0 Blood Gas Actual 24 Respiration Rate Blood Gas Modality VENT - AC FiO2 65.0 Blood Gas Tidal Volume 500.0 Blood Gas Low PEEP Setting 10.0 Blood Gas Inspiratory 43.0 Pressure Blood Gas Critical Value WEST.N,R.N. Read Back Blood Gas Notified Whom MOI GRANADOS Blood Gas Notified Time 08/11/2018 6:06:10 AM White Blood Count 12.5 H Red Blood Count 5.03 Hemoglobin 11.2 L Hematocrit 42.2 Mean Corpuscular Volume 83.9 Mean Corpuscular Hemoglobin 22.3 L Mean Corpuscular 26.5 L Hemoglobin Concent Red Cell Distribution Width 18.0 H Platelet Count 245 Mean Platelet Volume 8.9 Immature Granulocytes % 0.600 H Neutrophils % 70.5 Lymphocytes % 16.9 Monocytes % 10.1 Eosinophils % 1.4 Basophils % 0.5 Nucleated Red Blood Cells % 0.2 H Immature Granulocytes # 0.070 H Neutrophils # 8.8 H Lymphocytes # 2.1 Monocytes # 1.3 H Eosinophils # 0.2 Basophils # 0.1 Nucleated Red Blood Cells # 0.0 Sodium Level 145 H Potassium Level 3.9 Chloride Level 94 L Carbon Dioxide Level 39 H Anion Gap 12 Blood Urea Nitrogen 26 H Creatinine 1.00 Est Glomerular Filtrat > 60 Rate mL/min Glucose Level 101 Calcium Level 8.6 Phosphorus Level 5.4 H Magnesium Level 2.0 JOCELYN VILLALTA NP Aug 11, 2018 13:52
[2018-08-12] VITALS (48 sets, daily range): BP systolic 93–135; BP diastolic 45–82; PULSE 66–111; RESP 24
[2018-08-12] MEDS ORDERED: MIDAZOLAM (DRIP) 50 mg/50 mL 50 ML IV ONE (01:13)
[2018-08-12] MEDS: MIDAZOLAM (DRIP) 50 mg/50 mL 50 ML IV SCH ×5 (01:29→22:12)
[2018-08-12] MEDS: PROPOFOL 100 ML IV SCH ×8 (01:29→23:25)
[2018-08-12] MEDS: SOD CHLORIDE 0.45% 1,000 ML IV SCH ×3 (02:00→20:03)
[2018-08-12] MEDS: PIPER-TAZO 3.375 GM IV (PMX) 100 ML IVPB SCH ×4 (05:05→23:22)
[2018-08-12] MEDS: FUROSEMIDE 40 MG INJ IV SCH ×2 (05:07→16:07)
[2018-08-12] MEDS: FENTAnyl (DRIP) 1000 mcg/100mL 100 ML IV SCH ×2 (05:40→14:12)
--- NOTE | 2018-08-12 09:26 | CONS ---
Assessment/Plan Assessment/Plan Assessment/Plan (Daily) Chest x-ray showing persistent pulmonary edema with cardiomegaly. Ventilator setting; AC of 24, tidal volume 500, PEEP of 10, 65% FiO2. Patient is currently on fentanyl 100 mics per hour, propofol 20 mics per kilogram per minute. Assessment recommendations; 1. Patient with history of morbid obesity admitted for recurrent respiratory failure with severe hypercapnia as well as hypoxemia. 2. Possibly superimposed pneumonia on a background of CHF changes due to diastolic dysfunction. 3. Underlying sleep apnea. Patient was recently prescribed BiPAP which apparently had failed to relieve his hypercapnic respiratory failure. Continue current supportive care. Continue current antibiotics as well as diuretic regimen. Patient likely will need to have a tracheostomy performed. Obtain follow-up chest x-ray 24 hours. 35 minutes of critical care time was spent evaluating the patient. Consultation Date/Type/Reason Admit Date/Time Aug 08, 2018 at 17:18 Initial Consult Date 08/09/18 Type of Consult Pulmonary/critical care Consult dictated by mistake on last admission chart review. Please refer to last admission for consult note. Date/Time of Note DATE: 08/12/18 TIME: 09:23 24 HR Interval Summary Free Text/Dictation Patient's condition remains critical. Still requiring fairly high FiO2. Patient however has remained hemodynamically stable. General exam; young male, morbidly obese, orally intubated, sedated, currently in no distress. Exam/Review of Systems Exam Vitals Vital Signs Date Temp Pulse Resp B/P (MAP) Pulse Ox O2 O2 Flow FiO2 Time Delivery Rate 08/12/18 70 08:00 08/12/18 24 104/55 94 Mechanical 06:30 (71) Ventilator 08/12/18 65 05:27 08/12/18 99.1 04:00 08/08/18 4.0 15:03 Intake and Output 08/11/18 08/11/18 08/12/18 1515:00 23:00 07:00 IntakeIntake Total 1537.328 ml 1330.662 ml 1376.774 ml OutputOutput Total 2400 ml 1390 ml 705 ml BalanceBalance -862.672 ml -59.338 ml 671.774 ml Exam HEENT exam; supple neck, positive JVD. No lymphadenopathy. Midline trachea. No thyromegaly. Orally intubated. Patient has fair dentition. Pupils are small bilaterally. No neck masses. Chest exam; diminished but clear breath sounds. S1-S2 audible, no murmurs. Regular rhythm. Abdomen exam; soft, no organomegaly. Protuberant. Bowel sounds audible. Extremity exam; no edema. CONTACT LENS FITTER exam; patient is sedated. Results Result Diagram: 08/12/18 0445 08/12/18 0445 Results 24hrs Laboratory Tests Test 08/12/18 04:45 08/12/18 07:00 White Blood Count 11.0 H Red Blood Count 4.88 Hemoglobin 11.0 L Hematocrit 40.8 L Mean Corpuscular Volume 83.6 Mean Corpuscular Hemoglobin 22.5 L Mean Corpuscular Hemoglobin Concent 27.0 L Red Cell Distribution Width 17.5 H Platelet Count 207 Mean Platelet Volume 8.6 Immature Granulocytes % 0.500 H Neutrophils % 74.8 Lymphocytes % 13.7 L Monocytes % 8.8 Eosinophils % 2.0 Basophils % 0.2 Nucleated Red Blood Cells % 0.0 Immature Granulocytes # 0.060 H Neutrophils # 8.2 H Lymphocytes # 1.5 Monocytes # 1.0 H Eosinophils # 0.2 Basophils # 0.0 Nucleated Red Blood Cells # 0.0 Sodium Level 144 Potassium Level 3.9 Chloride Level 93 L Carbon Dioxide Level 40 H Anion Gap 11 Blood Urea Nitrogen 20 Creatinine 0.90 Est Glomerular Filtrat Rate mL/min > 60 Glucose Level 95 Calcium Level 8.8 Blood Gas Specimen Source Blood arterial Arterial Blood Date Drawn 08/12/2018 8:11:00 AM Arterial Blood pH (Temp corrected) 7.387 Arterial Blood pCO2 (Temp correct) 70.3 H Arterial Blood pO2 (Temp corrected) 79.2 L Arterial Blood HCO3 41.3 *H Arterial Blood Base Excess 13.4 H Arterial Blood Oxygen Saturation 94.8 L James Test ACCEPTAB Arterial Blood Gas Puncture Site Right Radial Arterial Blood Carboxyhemoglobin 0.6 Arterial Blood Methemoglobin 0.2 Blood Gas A-a O2 Differential 307.8 H Oxyhemoglobin Percent 94.0 Blood Gas Temperature 37.0 Blood Gas Respiration Rate 24.0 Blood Gas Actual Respiration Rate 24 Blood Gas Modality VENT - AC FiO2 65.0 Blood Gas Tidal Volume 500.0 Blood Gas Low PEEP Setting 10.0 Blood Gas Critical Value Read Back P EDEL RN Blood Gas Notified Whom DT Blood Gas Notified Time 08/12/2018 8:31:00 AM Medications Medication Current Medications IV Flush (NS 3 ml) 3 ml PER PROTOCOL IV ; Start 08/08/18 at 17:30 Ondansetron HCl (Zofran Inj) 4 mg Q6H PRN IV NAUSEA; Start 08/08/18 at 17:30 Haloperidol (Haldol) 5 mg PRN PRN IM AGGITATED Last administered on 08/08/18at 23:56; Admin Dose 5 MG; Start 08/08/18 at 22:00 Piperacillin Sod/ Tazobactam Sod 100 ml @ 200 mls/hr Q6 IVPB Last administered on 08/12/18at 05:05; Admin Dose 200 MLS/HR; Start 08/09/18 at 00:00 Propofol 100 ml @ 6.111 mls/ hr Q12H IV Last administered on 08/12/18at 07:35; Admin Dose 24.444 MLS/HR; Start 08/09/18 at 05:30 Fentanyl 100 ml @ 2.5 mls/hr TITRATE IV Last administered on 08/12/18at 05:40; Admin Dose 10 MLS/HR; Start 08/09/18 at 06:30 Enoxaparin Sodium (Lovenox) 40 mg Q12H SC Last administered on 08/11/18at 21:27; Admin Dose 40 MG; Start 08/09/18 at 21:00 Furosemide (Lasix) 40 mg BID DIURETICS IV Last administered on 08/12/18at 05:07; Admin Dose 40 MG; Start 08/09/18 at 11:00 Sodium Chloride 1,000 ml @ 75 mls/hr [id number] IV Last administered on 08/12/18at 07:11; Admin Dose 75 MLS/HR; Start 08/10/18 at 10:00 Famotidine (Pepcid) 20 mg BID GTB ; Start 08/12/18 at 09:00 Midazolam HCl 50 ml @ 1 mls/hr TITRATE IV Last administered on 08/12/18at 05:22; Admin Dose 10 MLS/HR; Start 08/12/18 at 01:30 TAVIA KING Aug 12, 2018 09:26
[2018-08-12] MEDS: FAMOTIDINE 20 MG TAB GTB SCH ×2 (10:12→21:27)
[2018-08-12] MEDS: ENOXAPARIN 40 MG/0.4 ML SYG SC SCH ×2 (10:13→21:31)
[2018-08-12] MEDS ORDERED: LIDOCAINE 1% (MPF) 5 ML VIAL SC ONE (12:00)
--- NOTE | 2018-08-12 14:05 | PN ---
Date/Time of Note Date/Time of Note DATE: 08/12/18 TIME: 14:03 Assessment/Plan VTE Prophylaxis Risk score (from Ns)>0 risk: 5 SCD applied (from Ns): No SCD contraindicated: other (no) Pharmacological prophylaxis: LMWH Lines/Catheters [facility] Peripheral IV Urinary Cath still in place: Yes Reason Cath still needed: other (indicate) (intubated) Assessment/Plan Assessment/Plan 32M morbidly obese presents with hypercapnic respiratory failure and pneumonia #Sepsis #Pneumonia - Bilateral patchy infiltrates on CXR, tachy to 120s, WBC 16 on admission. - IV zosyn, Abx per ID - Dr Rivers consulted. - Sputum culture negative, legionella negative. - Unfortunately patient exceeds the weight limit for CT scanner. #Hypoxic and hypercapnic respiratory failure - Likely from obesity, exacerbated by pneumonia - Intubated 08/09. - Very hypoxic; will try gentle IV diuresis. Currently diuresing 3-4L per day. - Patient had echo 07/16 which showed preserved EF 50-55% - Dr Pineda consulted DVT: lovenox GI: Protonix IV Result Diagram: 08/12/185 08/12/18 0445 Subjective 24 Hr Interval Summary Free Text/Dictation No acute overnight events. The patient has profuse diuresis, 3-4L per day urine output. Requiring heavy sedation. Currently on fent, prop, and versed; and he wakes up and fights the vent even with mild stimulation. Exam/Review of Systems Exam Vitals Vital Signs Date Temp Pulse Resp B/P (MAP) Pulse Ox O2 O2 Flow FiO2 Time Delivery Rate 08/12/18 83 12:00 08/12/18 24 98 65 11:30 08/12/18 104/48 Mechanical 11:30 (66) Ventilator 08/12/18 98.4 08:00 08/08/18 4.0 15:03 Intake and Output 08/11/18 08/11/18 08/12/18 1515:00 23:00 07:00 IntakeIntake Total 1537.328 ml 1330.662 ml 1376.774 ml OutputOutput Total 2400 ml 1390 ml 705 ml BalanceBalance -862.672 ml -59.338 ml 671.774 ml Exam Gen: Morbidly obese man lying in bed intubated. Neck: Obese, no lymphadenopathy appreciated HEENT: Clear oropharynx, moist mucous membranes Card: Regular rate and rhythm, distant heart sounds Pulm: Distant lung sounds. Mechanical breath sounds bilaterally. Abd: Morbidly obese, soft, nontender. Ext: Bilateral LE with redness and chronic venous stasis changes. Skin: warm dry well perfused. Medications Medication Current Medications IV Flush (NS 3 ml) 3 ml PER PROTOCOL IV ; Start 08/08/18 at 17:30 Ondansetron HCl (Zofran Inj) 4 mg Q6H PRN IV NAUSEA; Start 08/08/18 at 17:30 Haloperidol (Haldol) 5 mg PRN PRN IM AGGITATED Last administered on 08/08/18at 23:56; Admin Dose 5 MG; Start 08/08/18 at 22:00 Piperacillin Sod/ Tazobactam Sod 100 ml @ 200 mls/hr Q6 IVPB Last administered on 08/12/18at 05:05; Admin Dose 200 MLS/HR; Start 08/09/18 at 00:00 Propofol 100 ml @ 6.111 mls/ hr Q12H IV Last administered on 08/12/18at 11:53; Admin Dose 79.443 MLS/HR; Start 08/09/18 at 05:30 Fentanyl 100 ml @ 2.5 mls/hr TITRATE IV Last administered on 08/12/18at 05:40; Admin Dose 10 MLS/HR; Start 08/09/18 at 06:30 Enoxaparin Sodium (Lovenox) 40 mg Q12H SC Last administered on 08/12/18at 10:13; Admin Dose 40 MG; Start 08/09/18 at 21:00 Furosemide (Lasix) 40 mg BID DIURETICS IV Last administered on 08/12/18at 05:07; Admin Dose 40 MG; Start 08/09/18 at 11:00 Sodium Chloride 1,000 ml @ 75 mls/hr [id number] IV Last administered on 08/12/18at 07:11; Admin Dose 75 MLS/HR; Start 08/10/18 at 10:00 Famotidine (Pepcid) 20 mg BID GTB Last administered on 08/12/18at 10:12; Admin Dose 20 MG; Start 08/12/18 at 09:00 Midazolam HCl 50 ml @ 1 mls/hr TITRATE IV Last administered on 08/12/18at 10:14; Admin Dose 10 MLS/HR; Start 08/12/18 at 01:30 ELIANE PEARSON MD Aug 12, 2018 14:05
--- NOTE | 2018-08-12 15:07 | CONS ---
Assessment/Plan Assessment/Plan Hospital Course (Demo Recall) No acute changes overnight patient remains intubated in no distress no fevers status post midline placed this afternoon WBC today 11 H&H 11 and 40.8 platelets 207 neutrophils 74.8 BUN 20 creatinine 0.90 Chest x-ray this morning revealed no acute changes Microbiology: Blood culture urine culture remain negative MRSA swab negative, influenza swab negative, pending sputum culture Indwelling: Endotracheal tube NG tube Santiago catheter, PICC line Antimicrobials: Zosyn Physical examination: This is a morbidly obese well-developed middle-aged man who is intubated sedated in no distress. Head atraumatic normocephalic, bucal mucosa dry, neck is obese. Chest rise symmetrical breath sounds diminished. Heart: S1-S2. Abdomen obese distended bowel sounds hypoactive. Extremities with edema Assessment: 1. Acute hypoxemic respiratory failure, possible aspiration 2. Morbid obesity 3. Sleep apnea with hypoventilation syndrome Plan: Remains unchanged, pending sputum culture, continue antibiotics, vent management per pulmonary DW RN Consultation Date/Type/Reason Admit Date/Time Aug 08, 2018 at 17:18 Initial Consult Date 08/09/18 Type of Consult ID Date/Time of Note DATE: 08/12/18 TIME: 15:07 Exam/Review of Systems Exam Vitals Vital Signs Date Temp Pulse Resp B/P (MAP) Pulse Ox O2 O2 Flow FiO2 Time Delivery Rate 08/12/18 83 12:00 08/12/18 24 98 65 11:30 08/12/18 104/48 Mechanical 11:30 (66) Ventilator 08/12/18 98.4 08:00 08/08/18 4.0 15:03 Intake and Output 08/11/18 08/11/18 08/12/18 1515:00 23:00 07:00 IntakeIntake Total 1537.328 ml 1330.662 ml 1376.774 ml OutputOutput Total 2400 ml 1390 ml 705 ml BalanceBalance -862.672 ml -59.338 ml 671.774 ml Results Result Diagram: 08/12/18 0445 08/12/18 0445 Results 24hrs Laboratory Tests Test 08/12/18 04:45 08/12/18 07:00 White Blood Count 11.0 H Red Blood Count 4.88 Hemoglobin 11.0 L Hematocrit 40.8 L Mean Corpuscular Volume 83.6 Mean Corpuscular Hemoglobin 22.5 L Mean Corpuscular Hemoglobin Concent 27.0 L Red Cell Distribution Width 17.5 H Platelet Count 207 Mean Platelet Volume 8.6 Immature Granulocytes % 0.500 H Neutrophils % 74.8 Lymphocytes % 13.7 L Monocytes % 8.8 Eosinophils % 2.0 Basophils % 0.2 Nucleated Red Blood Cells % 0.0 Immature Granulocytes # 0.060 H Neutrophils # 8.2 H Lymphocytes # 1.5 Monocytes # 1.0 H Eosinophils # 0.2 Basophils # 0.0 Nucleated Red Blood Cells # 0.0 Sodium Level 144 Potassium Level 3.9 Chloride Level 93 L Carbon Dioxide Level 40 H Anion Gap 11 Blood Urea Nitrogen 20 Creatinine 0.90 Est Glomerular Filtrat Rate mL/min > 60 Glucose Level 95 Calcium Level 8.8 Blood Gas Specimen Source Blood arterial Arterial Blood Date Drawn 08/12/2018 8:11:00 AM Arterial Blood pH (Temp corrected) 7.387 Arterial Blood pCO2 (Temp correct) 70.3 H Arterial Blood pO2 (Temp corrected) 79.2 L Arterial Blood HCO3 41.3 *H Arterial Blood Base Excess 13.4 H Arterial Blood Oxygen Saturation 94.8 L James Test ACCEPTAB Arterial Blood Gas Puncture Site Right Radial Arterial Blood Carboxyhemoglobin 0.6 Arterial Blood Methemoglobin 0.2 Blood Gas A-a O2 Differential 307.8 H Oxyhemoglobin Percent 94.0 Blood Gas Temperature 37.0 Blood Gas Respiration Rate 24.0 Blood Gas Actual Respiration Rate 24 Blood Gas Modality VENT - AC FiO2 65.0 Blood Gas Tidal Volume 500.0 Blood Gas Low PEEP Setting 10.0 Blood Gas Critical Value Read Back P EDEL RN Blood Gas Notified Whom DT Blood Gas Notified Time 08/12/2018 8:31:00 AM Medications Medication Current Medications IV Flush (NS 3 ml) 3 ml PER PROTOCOL IV ; Start 08/08/18 at 17:30 Ondansetron HCl (Zofran Inj) 4 mg Q6H PRN IV NAUSEA; Start 08/08/18 at 17:30 Haloperidol (Haldol) 5 mg PRN PRN IM AGGITATED Last administered on 08/08/18at 23:56; Admin Dose 5 MG; Start 08/08/18 at 22:00 Piperacillin Sod/ Tazobactam Sod 100 ml @ 200 mls/hr Q6 IVPB Last administered on 08/12/18 14:22; Admin Dose 200 MLS/HR; Start 08/09/18 at 00:00 Propofol 100 ml @ 6.111 mls/ hr Q12H IV Last administered on 08/12/18 11:53; Admin Dose 79.443 MLS/HR; Start 08/09/18 at 05:30 Fentanyl 100 ml @ 2.5 mls/hr TITRATE IV Last administered on 08/12/18 14:12; Admin Dose 8 MLS/HR; Start 08/09/18 at 06:30 Enoxaparin Sodium (Lovenox) 40 mg Q12H SC Last administered on 08/12/18 10:13; Admin Dose 40 MG; Start 08/09/18 at 21:00 Furosemide (Lasix) 40 mg BID DIURETICS IV Last administered on 08/12/18 05:07; Admin Dose 40 MG; Start 08/09/18 at 11:00 Sodium Chloride 1,000 ml @ 75 mls/hr [id number] IV Last administered on 08/12/18 07:11; Admin Dose 75 MLS/HR; Start 08/10/18 at 10:00 Famotidine (Pepcid) 20 mg BID GTB Last administered on 08/12/18 10:12; Admin Dose 20 MG; Start 08/12/18 at 09:00 Midazolam HCl 50 ml @ 1 mls/hr TITRATE IV Last administered on 08/12/18 10:14; Admin Dose 10 MLS/HR; Start 08/12/18 at 01:30 JOCELYN VILLALTA NP Aug 12, 2018 15:07
[2018-08-13] VITALS (43 sets, daily range): BP systolic 96–124; BP diastolic 48–70; PULSE 73–102; RESP 24
[2018-08-13] MEDS: MIDAZOLAM (DRIP) 50 mg/50 mL 50 ML IV SCH (02:59)
[2018-08-13] MEDS: PROPOFOL 100 ML IV SCH ×7 (02:59→22:02)
[2018-08-13] MEDS: PIPER-TAZO 3.375 GM IV (PMX) 100 ML IVPB SCH ×2 (06:25→12:12)
[2018-08-13] MEDS: FUROSEMIDE 40 MG INJ IV SCH ×2 (06:28→18:45)
[2018-08-13] MEDS: FAMOTIDINE 20 MG TAB GTB SCH ×2 (08:15→20:10)
[2018-08-13] MEDS: ENOXAPARIN 40 MG/0.4 ML SYG SC SCH ×2 (08:16→20:11)
--- NOTE | 2018-08-13 09:08 | PN ---
Date/Time of Note Date/Time of Note DATE: 08/13/18 TIME: 09:06 Assessment/Plan VTE Prophylaxis Risk score (from Ns)>0 risk: 9 SCD applied (from Ns): No SCD contraindicated: other (no) Pharmacological prophylaxis: LMWH Lines/Catheters IV Catheter Type (from [facility]): Mid Line Urinary Cath still in place: Yes Reason Cath still needed: other (indicate) (intubated) Assessment/Plan Assessment/Plan 32M morbidly obese presents with hypercapnic respiratory failure and pneumonia #Sepsis #Pneumonia - Bilateral patchy infiltrates on CXR, tachy to 120s, WBC 16 on admission. - IV zosyn, Abx per ID - Dr Rivers consulted. - Sputum culture negative, legionella negative. - Unfortunately patient exceeds the weight limit for CT scanner. #Hypoxic and hypercapnic respiratory failure - Likely from obesity, exacerbated by pneumonia - Intubated 08/09. - Very hypoxic; will try gentle IV diuresis. Currently diuresing 3-4L per day. - Patient had echo 07/16 which showed preserved EF 50-55% - Dr Pineda consulted DVT: lovenox GI: Protonix IV Result Diagram: 08/13/1842608/13/18426 Subjective 24 Hr Interval Summary Free Text/Dictation No acute overnight events. Patient still intubated, sedated; high oxygen requirements. Mother at bedside. Exam/Review of Systems Exam Vitals Vital Signs Date Temp Pulse Resp B/P (MAP) Pulse Ox O2 O2 Flow FiO2 Time Delivery Rate 08/13/18 35 08:01 08/13/18 93 24 120/62 99 Mechanical 07:00 (81) Ventilator 08/13/18 99.9 04:00 Intake and Output 08/12/18 08/12/18 08/13/18 1515:00 23:00 07:00 IntakeIntake Total 1449.44 ml 1473.045 ml 1643.107 ml OutputOutput Total 860 ml 1045 ml 580 ml BalanceBalance 589.44 ml 428.045 ml 1063.107 ml Exam Gen: Morbidly obese man lying in bed intubated and sedated. Neck: Obese, no lymphadenopathy appreciated HEENT: Clear oropharynx, moist mucous membranes Card: Regular rate and rhythm, distant heart sounds Pulm: Distant lung sounds. Mechanical breath sounds bilaterally. Abd: Morbidly obese, soft, nontender. Ext: Bilateral LE with redness and chronic venous stasis changes. Skin: warm dry well perfused. Medications Medication Current Medications IV Flush (NS 3 ml) 3 ml PER PROTOCOL IV ; Start 08/08/18 at 17:30 Ondansetron HCl (Zofran Inj) 4 mg Q6H PRN IV NAUSEA; Start 08/08/18 at 17:30 Haloperidol (Haldol) 5 mg PRN PRN IM AGGITATED Last administered on 08/08/18at 23:56; Admin Dose 5 MG; Start 08/08/18 at 22:00 Piperacillin Sod/ Tazobactam Sod 100 ml @ 200 mls/hr Q6 IVPB Last administered on 08/13/18at 06:25; Admin Dose 200 MLS/HR; Start 08/09/18 at 00:00 Propofol 100 ml @ 6.111 mls/ hr Q12H IV Last administered on 08/13/18at 06:28; Admin Dose 24.444 MLS/HR; Start 08/09/18 at 05:30 Fentanyl 100 ml @ 2.5 mls/hr TITRATE IV Last administered on 08/12/18at 14:12; Admin Dose 8 MLS/HR; Start 08/09/18 at 06:30 Enoxaparin Sodium (Lovenox) 40 mg Q12H SC Last administered on 08/13/18at 08:16; Admin Dose 40 MG; Start 08/09/18 at 21:00 Furosemide (Lasix) 40 mg BID DIURETICS IV Last administered on 08/13/18 06:28; Admin Dose 40 MG; Start 08/09/18 at 11:00 Sodium Chloride 1,000 ml @ 75 mls/hr [id number] IV Last administered on 08/12/18at 20:03; Admin Dose 75 MLS/HR; Start 08/10/18 at 10:00 Famotidine (Pepcid) 20 mg BID GTB Last administered on 08/13/18at 08:15; Admin Dose 20 MG; Start 08/12/18 at 09:00 Midazolam HCl 50 ml @ 1 mls/hr TITRATE IV ; Start 08/13/18 at 08:30 ELIANE PEARSON MD Aug 13, 2018 09:08
--- NOTE | 2018-08-13 09:53 | CONS ---
Assessment/Plan Assessment/Plan Assessment/Plan (Daily) Chest x-ray was reviewed from today which is again showing mild cardiomegaly with prominent interstitial changes bilaterally. Ventilator setting; AC of 24, tidal volume 500, PEEP of 10, 55% FiO2. Patient is currently on fentanyl 75 mics per hour, Versed 1 mg/h. Propofol 20 mics per kilogram per minute. Assessment recommendations; 1. Patient admitted for recurrent hypoxemic and hypercapnic respiratory failure from underlying CHF with possibility of pneumonia. However chest x-ray showing persistent interstitial changes also indicative of underlying noninfectious, lung disease, possibly sarcoidosis. 2. Underlying sleep apnea, patient recently prescribed BiPAP which apparently failed to alleviate his symptoms. Continue current supportive care. Obtain repeat ABG. Add Solu-Medrol 40 mg every 6 hours. The patient's overall clinical condition as well as body habitus precludes obtaining CT imaging of the chest. Further recommendations once a repeat ABG is performed. The sample drawn from this morning likely was mixed venous. 35 minutes of critical care time was spent evaluating patient. I did have a detailed discussion with the patient's mother at bedside and answered all her qu estions. Consultation Date/Type/Reason Admit Date/Time Aug 08, 2018 at 17:18 Initial Consult Date 08/09/18 Type of Consult Pulmonary/critical care Consult dictated by mistake on last admission chart review. Please refer to [facility] admission for consult note. Date/Time of Note DATE: 08/13/18 TIME: 09:49 24 HR Interval Summary Free Text/Dictation Patient's condition remains critical. Still requiring fairly high FiO2. Patient however has remained hemodynamically stable. General exam; young male, morbidly obese, orally intubated, sedated, currently in no distress. Exam/Review of Systems Exam Vitals Vital Signs Date Temp Pulse Resp B/P (MAP) Pulse Ox O2 O2 Flow FiO2 Time Delivery Rate 08/13/18 35 08:01 08/13/18 93 24 120/62 99 Mechanical 07:00 (81) Ventilator 08/13/18 99.9 04:00 Intake and Output 08/12/18 08/12/18 08/13/18 1515:00 23:00 07:00 IntakeIntake Total 1449.44 ml 1473.045 ml 1643.107 ml OutputOutput Total 860 ml 1045 ml 580 ml BalanceBalance 589.44 ml 428.045 ml 1063.107 ml Exam HEENT exam; supple neck, JVD difficult to see because of short neck. Orally intubated. No neck masses. Pupils are small bilaterally. Chest exam; diminished breath sounds throughout. S1-S2 audible, no murmurs. Regular rhythm. Abdomen exam; soft, protuberant. Organomegaly difficult to assess. Bowel sounds audible. Extremity exam; no edema. SPOR[employer] B[employer] SERVER exam; patient is sedated. Results Result Diagram: 08/13/187 08/13/18 0427 Results 24hrs Laboratory Tests Test 08/13/18 04:27 08/13/18 07:00 White Blood Count 12.1 H Red Blood Count 4.74 Hemoglobin 10.6 L Hematocrit 39.7 L Mean Corpuscular Volume 83.8 Mean Corpuscular Hemoglobin 22.4 L Mean Corpuscular Hemoglobin Concent 26.7 L Red Cell Distribution Width 17.8 H Platelet Count 204 Mean Platelet Volume 8.6 Immature Granulocytes % 0.700 H Neutrophils % 73.0 Lymphocytes % 14.6 L Monocytes % 7.9 Eosinophils % 3.6 Basophils % 0.2 Nucleated Red Blood Cells % 0.0 Immature Granulocytes # 0.080 H Neutrophils # 8.9 H Lymphocytes # 1.8 Monocytes # 1.0 H Eosinophils # 0.4 Basophils # 0.0 Nucleated Red Blood Cells # 0.0 Sodium Level 145 H Potassium Level 3.7 Chloride Level 93 L Carbon Dioxide Level 40 H Anion Gap 12 Blood Urea Nitrogen 22 H Creatinine 1.06 Est Glomerular Filtrat Rate mL/min > 60 Glucose Level 106 Calcium Level 8.7 Phosphorus Level 4.2 Magnesium Level 2.0 Blood Gas Specimen Source Blood arterial Arterial Blood Date Drawn 08/13/2018 8:30:11 AM Arterial Blood pH (Temp corrected) 7.397 Arterial Blood pCO2 (Temp correct) 71.7 H Arterial Blood pO2 (Temp corrected) 54.2 *L Arterial Blood HCO3 43.1 *H Arterial Blood Base Excess 15.0 H Arterial Blood Oxygen Saturation 86.5 L James Test ACCEPTAB Arterial Blood Gas Puncture Site Right Radial Arterial Blood Carboxyhemoglobin 1.6 Arterial Blood Methemoglobin 0.2 Blood Gas A-a O2 Differential 112.0 H Oxyhemoglobin Percent 84.9 L Blood Gas Temperature 37.0 Blood Gas Respiration Rate 24.0 Blood Gas Actual Respiration Rate 24 Blood Gas Modality VENT - AC FiO2 35.0 Blood Gas Tidal Volume 500.0 Blood Gas Low PEEP Setting 10.0 Blood Gas Critical Value Read Back L KIANNA RN Blood Gas Notified Whom DT Blood Gas Notified Time 08/13/2018 8:50:14 AM Medications Medication Current Medications IV Flush (NS 3 ml) 3 ml PER PROTOCOL IV ; Start 08/08/18 at 17:30 Ondansetron HCl (Zofran Inj) 4 mg Q6H PRN IV NAUSEA; Start 08/08/18 at 17:30 Haloperidol (Haldol) 5 mg PRN PRN IM AGGITATED Last administered on 08/08/18at 23:56; Admin Dose 5 MG; Start 08/08/18 at 22:00 Piperacillin Sod/ Tazobactam Sod 100 ml @ 200 mls/hr Q6 IVPB Last administered on 08/13/18at 06:25; Admin Dose 200 MLS/HR; Start 08/09/18 at 00:00 Propofol 100 ml @ 6.111 mls/ hr Q12H IV Last administered on 08/13/18at 06:28; Admin Dose 24.444 MLS/HR; Start 08/09/18 at 05:30 Fentanyl 100 ml @ 2.5 mls/hr TITRATE IV Last administered on 08/12/18at 14:12; Admin Dose 8 MLS/HR; Start 08/09/18 at 06:30 Enoxaparin Sodium (Lovenox) 40 mg Q12H SC Last administered on 08/13/18at 08:16; Admin Dose 40 MG; Start 08/09/18 at 21:00 Furosemide (Lasix) 40 mg BID DIURETICS IV Last administered on 08/13/18at 06:28; Admin Dose 40 MG; Start 08/09/18 at 11:00 Famotidine (Pepcid) 20 mg BID GTB Last administered on 08/13/18 08:15; Admin Dose 20 MG; Start 08/12/18 at 09:00 Midazolam HCl 50 ml @ 1 mls/hr TITRATE IV ; Start 08/13/18 at 08:30 TAVIA KING Aug 13, 2018 09:53
[2018-08-13] MEDS: METHYLPREDNISOLONE 40 MG INJ IV SCH ×2 (12:11→17:17)
[2018-08-13] MEDS ORDERED: NORepinephrine 8MG/250 ML (PMX 250 ML IV SCH (15:00)
--- NOTE | 2018-08-13 15:23 | CONS ---
Assessment/Plan Assessment/Plan Hospital Course (Demo Recall) No acute changes patient remains intubated sedated distress, started on steroids, WBC 12.1 platelets 204 neutrophils 73 BUN 22 creatinine 1.06 Microbiology: All cultures including sputum culture negative Chest x-ray this morning revealed no interval change in the lungs Indwelling: Endotracheal tube NG tube Santiago catheter, PICC line Antimicrobials: Zosyn Physical examination: This is a morbidly obese well-developed middle-aged man who is intubated sedated in no distress. Head atraumatic normocephalic, bucal mucosa dry, neck is obese. Chest rise symmetrical breath sounds diminished. Heart: S1-S2. Abdomen obese distended bowel sounds hypoactive. Extremities with edema Assessment: 1. Acute hypoxemic respiratory failure, possible aspiration 2. Morbid obesity 3. Sleep apnea with hypoventilation syndrome Plan: Remains unchanged, sputum culture neg, dc antibiotics, f/u pulmonary rec- s, expect leukocytosis secondary to steroids DEBORAH RN Consultation Date/Type/Reason Admit Date/Time Aug 08, 2018 at 17:18 Initial Consult Date 08/09/18 Type of Consult ID Date/Time of Note DATE: 08/13/18 TIME: 15:22 Exam/Review of Systems Exam Vitals Vital Signs Date Temp Pulse Resp B/P (MAP) Pulse Ox O2 O2 Flow FiO2 Time Delivery Rate 08/13/18 83 24 121/68 100 Mechanical 15:00 (85) Ventilator 08/13/18 98.5 12:00 08/13/18 50 11:30 Intake and Output 08/12/18 08/12/18 08/13/18 1414:59 22:59 06:59 IntakeIntake Total 1332.00 ml 1467.430 ml 1573.662 ml OutputOutput Total 830 ml 1035 ml 590 ml BalanceBalance 502.00 ml 432.430 ml 983.662 ml Results Result Diagram: 08/13/187 08/13/187 Results 24hrs Laboratory Tests Test 08/13/18 04:27 08/13/18 07:00 08/13/18 10:30 White Blood Count 12.1 H Red Blood Count 4.74 Hemoglobin 10.6 L Hematocrit 39.7 L Mean Corpuscular 83.8 Volume Mean Corpuscular 22.4 L Hemoglobin Mean Corpuscular 26.7 L Hemoglobin Concent Red Cell Distribution 17.8 H Width Platelet Count 204 Mean Platelet Volume 8.6 Immature Granulocytes 0.700 H % Neutrophils % 73.0 Lymphocytes % 14.6 L Monocytes % 7.9 Eosinophils % 3.6 Basophils % 0.2 Nucleated Red Blood 0.0 Cells % Immature Granulocytes 0.080 H # Neutrophils # 8.9 H Lymphocytes # 1.8 Monocytes # 1.0 H Eosinophils # 0.4 Basophils # 0.0 Nucleated Red Blood 0.0 Cells # Sodium Level 145 H Potassium Level 3.7 Chloride Level 93 L Carbon Dioxide Level 40 H Anion Gap 12 Blood Urea Nitrogen 22 H Creatinine 1.06 Est Glomerular > 60 Filtrat Rate mL/min Glucose Level 106 Calcium Level 8.7 Phosphorus Level 4.2 Magnesium Level 2.0 Blood Gas Specimen Blood arterial Blood arterial Source Arterial Blood Date 08/13/2018 8:30:11 AM 08/13/2018 10:30:21 Drawn AM Arterial Blood pH 7.397 7.405 (Temp corrected) Arterial Blood pCO2 71.7 H 73.9 H (Temp correct) Arterial Blood pO2 54.2 *L 76.4 L (Temp corrected) Arterial Blood HCO3 43.1 *H 45.3 *H Arterial Blood Base 15.0 H 17.0 H Excess Arterial Blood 86.5 L 94.5 L Oxygen Saturation James Test ACCEPTAB ACCEPTAB Arterial Blood Gas Right Radial Right Radial Puncture Site Arterial 1.6 1.4 Blood Carboxyhemoglob in Arterial Blood 0.2 0.3 Methemoglobin Blood Gas A-a O2 112.0 H 233.5 H Differential Oxyhemoglobin Percent 84.9 L 92.9 L Blood Gas Temperature 37.0 37.0 Blood Gas Respiration 24.0 24.0 Rate Blood Gas Actual 24 24 Respiration Rate Blood Gas Modality VENT - AC VENT - AC FiO2 35.0 55.0 Blood Gas Tidal 500.0 500.0 Volume Blood Gas Low PEEP 10.0 10.0 Setting Blood Gas Critical L KIANNA RN L KIANNA RN Value Read Back Blood Gas Notified DT DT Whom Blood Gas Notified 08/13/2018 8:50:14 AM 08/13/2018 10:47:00 Time AM Medications Medication Current Medications IV Flush (NS 3 ml) 3 ml PER PROTOCOL IV ; Start 08/08/18 at 17:30 Ondansetron HCl (Zofran Inj) 4 mg Q6H PRN IV NAUSEA; Start 08/08/18 at 17:30 Haloperidol (Haldol) 5 mg PRN PRN IM AGGITATED Last administered on 08/08/18at 23:56; Admin Dose 5 MG; Start 08/08/18 at 22:00 Piperacillin Sod/ Tazobactam Sod 100 ml @ 200 mls/hr Q6 IVPB Last administered on 08/13/18 12:12; Admin Dose 200 MLS/HR; Start 08/09/18 at 00:00 Propofol 100 ml @ 6.111 mls/ hr Q12H IV Last administered on 08/13/18 13:35; Admin Dose 30.555 MLS/HR; Start 08/09/18 at 05:30 Fentanyl 100 ml @ 2.5 mls/hr TITRATE IV Last administered on 08/12/18 14:12; Admin Dose 8 MLS/HR; Start 08/09/18 at 06:30 Enoxaparin Sodium (Lovenox) 40 mg Q12H SC Last administered on 08/13/18 08:16; Admin Dose 40 MG; Start 08/09/18 at 21:00 Furosemide (Lasix) 40 mg BID DIURETICS IV Last administered on 08/13/18 06:28; Admin Dose 40 MG; Start 08/09/18 at 11:00 Famotidine (Pepcid) 20 mg BID GTB Last administered on 08/13/18at 08:15; Admin Dose 20 MG; Start 08/12/18 at 09:00 Midazolam HCl 50 ml @ 1 mls/hr TITRATE IV ; Start 08/13/18 at 08:30 Methylprednisolone Sodium Succinate (Solu-Medrol) 40 mg Q6 IV Last administered on 08/13/18at 12:11; Admin Dose 40 MG; Start 08/13/18 at 12:00 JOCELYN VILLALTA NP Aug 13, 2018 15:23
[2018-08-13] MEDS ORDERED: POTASSIUM CHLORIDE 20 MEQ POWDER FOR ORAL SOLN NGT ONE (15:30)
[2018-08-13] MEDS ORDERED: FUROSEMIDE 40 MG INJ IV ONE (16:00)
[2018-08-13] MEDS: FENTAnyl (DRIP) 1000 mcg/100mL 100 ML IV SCH (17:23)
[2018-08-13] MEDS ORDERED: SCOPOLAMINE 1.5 MG PATCH TRANSDERM SCH (20:00)
[2018-08-13] MEDS: SCOPOLAMINE 1.5 MG PATCH TRANSDERM SCH (21:17)
[2018-08-14] VITALS (36 sets, daily range): BP systolic 105–137; BP diastolic 52–103; PULSE 66–102; RESP 24–26
[2018-08-14] MEDS: METHYLPREDNISOLONE 40 MG INJ IV SCH ×4 (00:38→18:42)
[2018-08-14] MEDS: PROPOFOL 100 ML IV SCH ×8 (01:43→22:10)
[2018-08-14] MEDS: FUROSEMIDE 40 MG INJ IV SCH ×2 (05:22→18:42)
[2018-08-14] MEDS: FENTAnyl (DRIP) 1000 mcg/100mL 100 ML IV SCH ×2 (07:09→22:55)
--- NOTE | 2018-08-14 07:50 | CONS ---
Assessment/Plan Assessment/Plan Assessment/Plan (Daily) Chest x-ray is pending from today. Patient is currently on assist control of 24, tidal volume 500, PEEP of 10, 55% FiO2. Fentanyl 75 mics per hour. Assessment recommendations; 1. Patient admitted for recurrent hypoxemic and hypercapnic respiratory failure due to underlying obesity/hypoventilation syndrome as well as newly diagnosed sleep apnea. 2. Interstitial lung changes with cystic changes indicative of possibly underlying inflammatory lung disease possibly sarcoidosis. 3. CHF. 4. Mild anemia. Continue on supportive care. Perform ABG. Continue Solu-Medrol. Patient now is off antibiotics. Further recommendations once ABG is performed. Patient likely will need to have a tracheostomy performed. 35 minutes of critical care time was spent evaluating the patient. Consultation Date/Type/Reason Admit Date/Time Aug 08, 2018 at 17:18 Initial Consult Date 08/09/18 Type of Consult Pulmonary/critical care Consult dictated by mistake on last admission chart review. Please refer to last admission for consult note. Date/Time of Note DATE: 08/14/18 TIME: 07:48 24 HR Interval Summary Free Text/Dictation Patient's condition remains critical. However oxygenation has improved slightly. Patient has remained hemodynamically stable. General exam; young male, morbidly obese, orally intubated and sedated. Currently no distress. Exam/Review of Systems Exam Vitals Vital Signs Date Temp Pulse Resp B/P (MAP) Pulse Ox O2 O2 Flow FiO2 Time Delivery Rate 08/14/18 71 24 128/67 94 Mechanical 06:00 (87) Ventilator 08/14/18 55 05:12 08/14/18 98.8 04:00 Intake and Output 08/13/18 08/13/18 08/14/18 1515:00 23:00 07:00 IntakeIntake Total 1030.50 ml 726.332 ml 736.385 ml OutputOutput Total 1240 ml 415 ml 490 ml BalanceBalance -209.50 ml 311.332 ml 246.385 ml Exam HEENT exam; supple neck, JVD difficult to see because of short neck. No thyromegaly. Patient has fair dentition. Orally intubated. No neck masses. Pupils are small bilaterally. Chest exam; diminished but clear breath sounds. S1-S2 audible, no murmurs. Regular rhythm. Abdomen exam; soft, protuberant. Organomegaly difficult to assess because of body habitus. Bowel sounds audible. Extremity exam; trace edema. Pulses 1+. [employer] SERVICES OFFICER exam; patient is sedated. Results Result Diagram: 08/14/18 0458 08/14/18 0458 Results 24hrs Laboratory Tests Test 08/13/18 10:30 08/14/18 04:58 Blood Gas Specimen Source Blood arterial Arterial Blood Date Drawn 08/13/2018 10:30:21 AM Arterial Blood pH (Temp corrected) 7.405 Arterial Blood pCO2 (Temp correct) 73.9 H Arterial Blood pO2 (Temp corrected) 76.4 L Arterial Blood HCO3 45.3 *H Arterial Blood Base Excess 17.0 H Arterial Blood Oxygen Saturation 94.5 L James Test ACCEPTAB Arterial Blood Gas Puncture Site Right Radial Arterial Blood Carboxyhemoglobin 1.4 Arterial Blood Methemoglobin 0.3 Blood Gas A-a O2 Differential 233.5 H Oxyhemoglobin Percent 92.9 L Blood Gas Temperature 37.0 Blood Gas Respiration Rate 24.0 Blood Gas Actual Respiration Rate 24 Blood Gas Modality VENT - AC FiO2 55.0 Blood Gas Tidal Volume 500.0 Blood Gas Low PEEP Setting 10.0 Blood Gas Critical Value Read Back L KIANNA RN Blood Gas Notified Whom DT Blood Gas Notified Time 08/13/2018 10:47:00 AM White Blood Count 13.0 H Red Blood Count 4.99 Hemoglobin 11.3 L Hematocrit 41.7 L Mean Corpuscular Volume 83.6 Mean Corpuscular Hemoglobin 22.6 L Mean Corpuscular Hemoglobin Concent 27.1 L Red Cell Distribution Width 17.1 H Platelet Count 231 Mean Platelet Volume 9.3 Immature Granulocytes % 0.700 H Neutrophils % 91.7 H Lymphocytes % 5.7 L Monocytes % 1.7 Eosinophils % 0.0 Basophils % 0.2 Nucleated Red Blood Cells % 0.0 Immature Granulocytes # 0.090 H Neutrophils # 11.9 H Lymphocytes # 0.7 L Monocytes # 0.2 L Eosinophils # 0.0 Basophils # 0.0 Nucleated Red Blood Cells # 0.0 Sodium Level 146 H Potassium Level 4.3 Chloride Level 93 L Carbon Dioxide Level 40 H Anion Gap 13 Blood Urea Nitrogen 29 H Creatinine 0.87 Est Glomerular Filtrat Rate mL/min > 60 Glucose Level 180 Calcium Level 9.1 Medications Medication Current Medications IV Flush (NS 3 ml) 3 ml PER PROTOCOL IV ; Start 08/08/18 at 17:30 Ondansetron HCl (Zofran Inj) 4 mg Q6H PRN IV NAUSEA; Start 08/08/18 at 17:30 Haloperidol (Haldol) 5 mg PRN PRN IM AGGITATED Last administered on 08/08/18at 23:56; Admin Dose 5 MG; Start 08/08/18 at 22:00 Propofol 100 ml @ 6.111 mls/ hr Q12H IV Last administered on 08/14/18 07:06; Admin Dose 30.555 MLS/HR; Start 08/09/18 at 05:30 Fentanyl 100 ml @ 2.5 mls/hr TITRATE IV Last administered on 08/14/18 07:09; Admin Dose 7.5 MLS/HR; Start 08/09/18 at 06:30 Enoxaparin Sodium (Lovenox) 40 mg Q12H SC Last administered on 08/13/18at 20:11; Admin Dose 40 MG; Start 08/09/18 at 21:00 Furosemide (Lasix) 40 mg BID DIURETICS IV Last administered on 08/14/18at 05:22; Admin Dose 40 MG; Start 08/09/18 at 11:00 Famotidine (Pepcid) 20 mg BID GTB Last administered on 08/13/18at 20:10; Admin Dose 20 MG; Start 08/12/18 at 09:00 Midazolam HCl 50 ml @ 1 mls/hr TITRATE IV ; Start 08/13/18 at 08:30 Methylprednisolone Sodium Succinate (Solu-Medrol) 40 mg Q6 IV Last administered on 08/14/18 05:22; Admin Dose 40 MG; Start 08/13/18 at 12:00 Scopolamine (Transderm-Scop) 1 patch Q72H TRANSDERM Last administered on 08/13/18at 21:17; Admin Dose 1 PATCH; Start 08/13/18 at 20:00 TAVIA KING Aug 14, 2018 07:50
[2018-08-14] MEDS ORDERED: DOCUSATE SODIUM 100 MG CAP PO SCH (10:00)
[2018-08-14] MEDS: FAMOTIDINE 20 MG TAB GTB SCH ×2 (10:01→20:25)
[2018-08-14] MEDS: ENOXAPARIN 40 MG/0.4 ML SYG SC SCH ×2 (10:04→20:29)
--- NOTE | 2018-08-14 10:07 | PN ---
Date/Time of Note Date/Time of Note DATE: 08/14/18 TIME: 09:50 Assessment/Plan VTE Prophylaxis Risk score (from Ns)>0 risk: 8 SCD applied (from [facility]): No SCD contraindicated: other Pharmacological prophylaxis: LMWH Lines/Catheters IV Catheter Type (from [facility]): Mid Line Urinary Cath still in place: Yes Reason Cath still needed: urinary retention Assessment/Plan Hospital Course S: Pt intubated, sedated. On IV Lasix with good urine output, tolerating tube feeds. O: VS - see below PE: Gen: Morbidly obese man lying in bed intubated and sedated. Neck: Obese, no lymphadenopathy appreciated HEENT: Clear oropharynx, moist mucous membranes Card: Regular rate and rhythm, distant heart sounds Pulm: some distant lung sounds. Abd: Morbidly obese, soft, nontender. Ext: Bilateral LE with redness and chronic venous stasis changes. Neuro: unable to fully assess Assessment/Plan: 32M morbidly obese presents with hypercapnic respiratory failure and pneumonia. #Hypoxic and hypercapnic respiratory failure - Likely from obesity (ANDREW), exacerbated by pneumonia - now off abx- Intubated 08/09, still appears hypoxic. Patient had echo 07/16 which showed preserved EF 50-55% - For now continue IV diuresis, mechanical ventilation via pulmonary recommendations - Monitor ins and outs, BUN/creatinine levels # Pneumonia- Bilateral patchy infiltrates on CXR,WBC 16 on admission-slightly improved, and now off antibiotics for 24 hours. No fevers presently - Sputum culture negative, legionella negative. -Monitor, white blood cell count 13 today, follow-up ID recommendations. - Unfortunately patient exceeds the weight limit for CT scanner, monitor for now DVT: lovenox GI: Protonix IV Critical care time spent in patient care today equals 45 minutes. Result Diagram: 08/14/18 0458 08/14/18 0458 Results 24hrs Laboratory Tests Test 08/13/18 10:30 08/14/18 04:58 08/14/18 07:42 Blood Gas Specimen Blood arterial Blood arterial Source Arterial Blood Date 08/13/2018 10:30:21 08/14/2018 8:09:46 AM Drawn AM Arterial Blood pH 7.405 7.411 (Temp corrected) Arterial Blood pCO2 73.9 H 69.9 H (Temp correct) Arterial Blood pO2 76.4 L 72.1 L (Temp corrected) Arterial Blood HCO3 45.3 *H 43.4 *H Arterial Blood Base 17.0 H 15.6 H Excess Arterial Blood 94.5 L 93.6 L Oxygen Saturation James Test ACCEPTAB ACCEPTAB Arterial Blood Gas Right Radial Right Radial Puncture Site Arterial 1.4 1.2 Blood Carboxyhemoglob in Arterial Blood 0.3 0.2 Methemoglobin Blood Gas A-a O2 233.5 H 242.3 H Differential Oxyhemoglobin Percent 92.9 L 92.3 L Blood Gas Temperature 37.0 37.0 Blood Gas Respiration 24.0 24.0 Rate Blood Gas Actual 24 24 Respiration Rate Blood Gas Modality VENT - AC VENT - AC FiO2 55.0 55.0 Blood Gas Tidal 500.0 500.0 Volume Blood Gas Low PEEP 10.0 10.0 Setting Blood Gas Critical L KIANNA SAUCEDO RN Value Read Back Blood Gas Notified DT TM Whom Blood Gas Notified 08/13/2018 10:47:00 08/14/2018 8:24:43 AM Time AM White Blood Count 13.0 H Red Blood Count 4.99 Hemoglobin 11.3 L Hematocrit 41.7 L Mean Corpuscular 83.6 Volume Mean Corpuscular 22.6 L Hemoglobin Mean Corpuscular 27.1 L Hemoglobin Concent Red Cell Distribution 17.1 H Width Platelet Count 231 Mean Platelet Volume 9.3 Immature Granulocytes 0.700 H % Neutrophils % 91.7 H Lymphocytes % 5.7 L Monocytes % 1.7 Eosinophils % 0.0 Basophils % 0.2 Nucleated Red Blood 0.0 Cells % Immature Granulocytes 0.090 H # Neutrophils # 11.9 H Lymphocytes # 0.7 L Monocytes # 0.2 L Eosinophils # 0.0 Basophils # 0.0 Nucleated Red Blood 0.0 Cells # Sodium Level 146 H Potassium Level 4.3 Chloride Level 93 L Carbon Dioxide Level 40 H Anion Gap 13 Blood Urea Nitrogen 29 H Creatinine 0.87 Est Glomerular > 60 Filtrat Rate mL/min Glucose Level 180 Calcium Level 9.1 Exam/Review of Systems Exam Vitals Vital Signs Date Temp Pulse Resp B/P (MAP) Pulse Ox O2 O2 Flow FiO2 Time Delivery Rate 08/14/18 70 08:00 08/14/18 24 128/67 94 Mechanical 06:00 (87) Ventilator 08/14/18 55 05:12 08/14/18 98.8 04:00 Intake and Output 08/13/18 08/13/18 08/14/18 1515:00 23:00 07:00 IntakeIntake Total 1030.50 ml 726.332 ml 736.385 ml OutputOutput Total 1240 ml 415 ml 490 ml BalanceBalance -209.50 ml 311.332 ml 246.385 ml Results Results 24hrs Laboratory Tests Test 08/13/18 10:30 08/14/18 04:58 08/14/18 07:42 Blood Gas Specimen Blood arterial Blood arterial Source Arterial Blood Date 08/13/2018 10:30:21 08/14/2018 8:09:46 AM Drawn AM Arterial Blood pH 7.405 7.411 (Temp corrected) Arterial Blood pCO2 73.9 H 69.9 H (Temp correct) Arterial Blood pO2 76.4 L 72.1 L (Temp corrected) Arterial Blood HCO3 45.3 *H 43.4 *H Arterial Blood Base 17.0 H 15.6 H Excess Arterial Blood 94.5 L 93.6 L Oxygen Saturation James Test ACCEPTAB ACCEPTAB Arterial Blood Gas Right Radial Right Radial Puncture Site Arterial 1.4 1.2 Blood Carboxyhemoglob in Arterial Blood 0.3 0.2 Methemoglobin Blood Gas A-a O2 233.5 H 242.3 H Differential Oxyhemoglobin Percent 92.9 L 92.3 L Blood Gas Temperature 37.0 37.0 Blood Gas Respiration 24.0 24.0 Rate Blood Gas Actual 24 24 Respiration Rate Blood Gas Modality VENT - AC VENT - AC FiO2 55.0 55.0 Blood Gas Tidal 500.0 500.0 Volume Blood Gas Low PEEP 10.0 10.0 Setting Blood Gas Critical L KIANNA SAUCEDO RN Value Read Back Blood Gas Notified DT TM Whom Blood Gas Notified 08/13/2018 10:47:00 08/14/2018 8:24:43 AM Time AM White Blood Count 13.0 H Red Blood Count 4.99 Hemoglobin 11.3 L Hematocrit 41.7 L Mean Corpuscular 83.6 Volume Mean Corpuscular 22.6 L Hemoglobin Mean Corpuscular 27.1 L Hemoglobin Concent Red Cell Distribution 17.1 H Width Platelet Count 231 Mean Platelet Volume 9.3 Immature Granulocytes 0.700 H % Neutrophils % 91.7 H Lymphocytes % 5.7 L Monocytes % 1.7 Eosinophils % 0.0 Basophils % 0.2 Nucleated Red Blood 0.0 Cells % Immature Granulocytes 0.090 H # Neutrophils # 11.9 H Lymphocytes # 0.7 L Monocytes # 0.2 L Eosinophils # 0.0 Basophils # 0.0 Nucleated Red Blood 0.0 Cells # Sodium Level 146 H Potassium Level 4.3 Chloride Level 93 L Carbon Dioxide Level 40 H Anion Gap 13 Blood Urea Nitrogen 29 H Creatinine 0.87 Est Glomerular > 60 Filtrat Rate mL/min Glucose Level 180 Calcium Level 9.1 Medications Medication Current Medications IV Flush (NS 3 ml) 3 ml PER PROTOCOL IV ; Start 08/08/18 at 17:30 Ondansetron HCl (Zofran Inj) 4 mg Q6H PRN IV NAUSEA; Start 08/08/18 at 17:30 Haloperidol (Haldol) 5 mg PRN PRN IM AGGITATED Last administered on 08/08/18at 23:56; Admin Dose 5 MG; Start 08/08/18 at 22:00 Propofol 100 ml @ 6.111 mls/ hr Q12H IV Last administered on 08/14/18at 07:06; Admin Dose 30.555 MLS/HR; Start 08/09/18 at 05:30 Fentanyl 100 ml @ 2.5 mls/hr TITRATE IV Last administered on 08/14/18at 07:09; Admin Dose 7.5 MLS/HR; Start 08/09/18 at 06:30 Enoxaparin Sodium (Lovenox) 40 mg Q12H SC Last administered on 08/13/18at 20:11; Admin Dose 40 MG; Start 08/09/18 at 21:00 Furosemide (Lasix) 40 mg BID DIURETICS IV Last administered on 08/14/18at 05:22; Admin Dose 40 MG; Start 08/09/18 at 11:00 Famotidine (Pepcid) 20 mg BID GTB Last administered on 08/13/18at 20:10; Admin Dose 20 MG; Start 08/12/18 at 09:00 Midazolam HCl 50 ml @ 1 mls/hr TITRATE IV ; Start 08/13/18 at 08:30 Methylprednisolone Sodium Succinate (Solu-Medrol) 40 mg Q6 IV Last administered on 08/14/18at 05:22; Admin Dose 40 MG; Start 08/13/18 at 12:00 Scopolamine (Transderm-Scop) 1 patch Q72H TRANSDERM Last administered on 08/13/18at 21:17; Admin Dose 1 PATCH; Start 08/13/18 at 20:00 RC GO Aug 14, 2018 10:05
--- NOTE | 2018-08-14 13:56 | CONS ---
Assessment/Plan Assessment/Plan Hospital Course (Demo Recall) No acute events overnight patient remains intubated sedated in no distress he is off antibiotics since yesterday, he had low-grade fevers last night with a T-max of 100 WBC today 13 H&H 11.3 and 41.7 platelets 231 neutrophils 91.7 BUN 29 creatinine 0.87 Chest x-ray revealed stable patchy perihilar infiltrates in the bilateral lower lobes and small pleural effusion Indwelling: Endotracheal tube NG tube Santiago catheter, PICC line Antimicrobials: Zosyn Physical examination: This is a morbidly obese well-developed middle-aged man who is intubated sedated in no distress. Head atraumatic normocephalic, bucal mucosa dry, neck is obese. Chest rise symmetrical breath sounds diminished. Heart: S1-S2. Abdomen obese distended bowel sounds hypoactive. Extremities with edema Assessment: 1. Acute hypoxemic respiratory failure, possible aspiration 2. Morbid obesity 3. Sleep apnea with hypoventilation syndrome Plan: Remains unchanged, off antibiotics, continue present care, vent support per pulmonary, reculture for T 101 DEBORAH RN Consultation Date/Type/Reason Admit Date/Time Aug 08, 2018 at 17:18 Initial Consult Date 08/09/18 Type of Consult ID Date/Time of Note DATE: 08/14/18 TIME: 13:54 Exam/Review of Systems Exam Vitals Vital Signs Date Temp Pulse Resp B/P (MAP) Pulse Ox O2 O2 Flow FiO2 Time Delivery Rate 08/14/18 70 24 96 45 13:44 08/14/18 116/52 Mechanical 13:00 (73) Ventilator 08/14/18 99.5 08:00 Intake and Output 08/13/18 08/13/18 08/14/18 1515:00 23:00 07:00 IntakeIntake Total 1030.50 ml 726.332 ml 766.940 ml OutputOutput Total 1240 ml 415 ml 490 ml BalanceBalance -209.50 ml 311.332 ml 276.940 ml Results Result Diagram: 08/14/18 0458 08/14/18 0458 Results 24hrs Laboratory Tests Test 08/14/18 04:58 08/14/18 07:42 White Blood Count 13.0 H Red Blood Count 4.99 Hemoglobin 11.3 L Hematocrit 41.7 L Mean Corpuscular Volume 83.6 Mean Corpuscular Hemoglobin 22.6 L Mean Corpuscular Hemoglobin Concent 27.1 L Red Cell Distribution Width 17.1 H Platelet Count 231 Mean Platelet Volume 9.3 Immature Granulocytes % 0.700 H Neutrophils % 91.7 H Lymphocytes % 5.7 L Monocytes % 1.7 Eosinophils % 0.0 Basophils % 0.2 Nucleated Red Blood Cells % 0.0 Immature Granulocytes # 0.090 H Neutrophils # 11.9 H Lymphocytes # 0.7 L Monocytes # 0.2 L Eosinophils # 0.0 Basophils # 0.0 Nucleated Red Blood Cells # 0.0 Sodium Level 146 H Potassium Level 4.3 Chloride Level 93 L Carbon Dioxide Level 40 H Anion Gap 13 Blood Urea Nitrogen 29 H Creatinine 0.87 Est Glomerular Filtrat Rate mL/min > 60 Glucose Level 180 Calcium Level 9.1 Blood Gas Specimen Source Blood arterial Arterial Blood Date Drawn 08/14/2018 8:09:46 AM Arterial Blood pH (Temp corrected) 7.411 Arterial Blood pCO2 (Temp correct) 69.9 H Arterial Blood pO2 (Temp corrected) 72.1 L Arterial Blood HCO3 43.4 *H Arterial Blood Base Excess 15.6 H Arterial Blood Oxygen Saturation 93.6 L James Test ACCEPTAB Arterial Blood Gas Puncture Site Right Radial Arterial Blood Carboxyhemoglobin 1.2 Arterial Blood Methemoglobin 0.2 Blood Gas A-a O2 Differential 242.3 H Oxyhemoglobin Percent 92.3 L Blood Gas Temperature 37.0 Blood Gas Respiration Rate 24.0 Blood Gas Actual Respiration Rate 24 Blood Gas Modality VENT - AC FiO2 55.0 Blood Gas Tidal Volume 500.0 Blood Gas Low PEEP Setting 10.0 Blood Gas Critical Value Read Back SHERYL BOTELLO Blood Gas Notified Whom TM Blood Gas Notified Time 08/14/2018 8:24:43 AM Medications Medication Current Medications IV Flush (NS 3 ml) 3 ml PER PROTOCOL IV ; Start 08/08/18 at 17:30 Ondansetron HCl (Zofran Inj) 4 mg Q6H PRN IV NAUSEA; Start 08/08/18 at 17:30 Haloperidol (Haldol) 5 mg PRN PRN IM AGGITATED Last administered on 08/08/18at 23:56; Admin Dose 5 MG; Start 08/08/18 at 22:00 Propofol 100 ml @ 6.111 mls/ hr Q12H IV Last administered on 08/14/18at 13:27; Admin Dose 36.666 MLS/HR; Start 08/09/18 at 05:30 Fentanyl 100 ml @ 2.5 mls/hr TITRATE IV Last administered on 08/14/18 07:09; Admin Dose 7.5 MLS/HR; Start 08/09/18 at 06:30 Enoxaparin Sodium (Lovenox) 40 mg Q12H SC Last administered on 08/14/18 10:04; Admin Dose 40 MG; Start 08/09/18 at 21:00 Furosemide (Lasix) 40 mg BID DIURETICS IV Last administered on 08/14/18 05:22; Admin Dose 40 MG; Start 08/09/18 at 11:00 Famotidine (Pepcid) 20 mg BID GTB Last administered on 08/14/18at 10:01; Admin Dose 20 MG; Start 08/12/18 at 09:00 Midazolam HCl 50 ml @ 1 mls/hr TITRATE IV ; Start 08/13/18 at 08:30 Methylprednisolone Sodium Succinate (Solu-Medrol) 40 mg Q6 IV Last administered on 08/14/18at 12:16; Admin Dose 40 MG; Start 08/13/18 at 12:00 Scopolamine (Transderm-Scop) 1 patch Q72H TRANSDERM Last administered on 08/13/18at 21:17; Admin Dose 1 PATCH; Start 08/13/18 at 20:00 Docusate Sodium (Colace Liquid Cup) 200 mg BID NGT ; Start 08/14/18 at 21:00 JOCELYN VILLALTA NP Aug 14, 2018 13:56
[2018-08-14] MEDS: DOCUSATE SODIUM 10 MG/ML (10ML CUP) NGT SCH (20:25)
[2018-08-15] VITALS (38 sets, daily range): BP systolic 111–159; BP diastolic 52–71; PULSE 65–111; RESP 24–28
[2018-08-15] MEDS: METHYLPREDNISOLONE 40 MG INJ IV SCH ×4 (00:05→18:17)
[2018-08-15] MEDS: PROPOFOL 100 ML IV SCH ×9 (00:56→22:43)
[2018-08-15] MEDS: FUROSEMIDE 40 MG INJ IV SCH ×2 (05:57→18:17)
--- NOTE | 2018-08-15 08:38 | CONS ---
Assessment/Plan Assessment/Plan Assessment/Plan (Daily) Ventilator setting; AC of 24, tidal volume 500, PEEP of 10, 40% FiO2. Patient is currently on fentanyl 50 mics per hour, propofol 30 mics per kilogram per minute. Assessment recommendations; 1. Patient admitted for recurrent hypercapnic respiratory failure due to underlying obesity/hypoventilation syndrome with sleep apnea. 2. CHF. 3. Patient now having leukocytosis with temperature spike. 4. Possibly underlying interstitial lung disease, possibly sarcoidosis. 5. Mild anemia. Add cefepime and vancomycin. Obtain ABG. Obtain follow-up chest x-ray. Continue other supportive measures. Further recommendations once ABG is performed. Prognosis is guarded, patient likely will need to have a tracheostomy performed. 35 minutes of critical care time was spent evaluating the patient. Consultation Date/Type/Reason Admit Date/Time Aug 08, 2018 at 17:18 Initial Consult Date 08/09/18 Type of Consult Pulmonary/critical care Consult dictated by mistake on last admission chart review. Please refer to last admission for consult note. Date/Time of Note DATE: 08/15/18 TIME: 08:34 24 HR Interval Summary Free Text/Dictation Patient's condition remains critical. Patient however has remained hemodynamically stable. General exam; young male, morbidly obese, orally intubated, sedated, currently in no distress. Exam/Review of Systems Exam Vitals Vital Signs Date Temp Pulse Resp B/P (MAP) Pulse Ox O2 O2 Flow FiO2 Time Delivery Rate 08/15/18 69 08:00 08/15/18 24 117/60 96 Mechanical 06:00 (79) Ventilator 08/15/18 40 05:41 08/15/18 99.1 04:00 Intake and Output 08/14/18 08/14/18 08/15/18 1414:59 22:59 06:59 IntakeIntake Total 877.953 ml 738.330 ml 868.328 ml OutputOutput Total 1000 ml 750 ml 755 ml BalanceBalance -122.047 ml -11.670 ml 113.328 ml Exam H EENT exam; supple neck, JVD difficult to see because of short neck. Orally intubated. Patient has fair dentition. No neck masses. Pupils are midsize. Orogastric tube in place. Chest exam; diminished breath sounds throughout. S1-S2 audible, no murmurs. Regular rhythm. Abdomen exam; soft, Protuberant. Organomegaly difficult to assess. Bowel so unds audible. Extremity exam; trace edema. FRUIT RANCHER exam; patient sedated. Results Result Diagram: 08/15/18 0300 08/15/18 0300 Results 24hrs Laboratory Tests Test 08/14/18 15:36 08/15/18 03:00 Troponin I < 0.012 White Blood Count 16.8 #H Red Blood Count 4.91 Hemoglobin 11.2 L Hematocrit 41.6 L Mean Corpuscular Volume 84.7 Mean Corpuscular Hemoglobin 22.8 L Mean Corpuscular Hemoglobin Concent 26.9 L Red Cell Distribution Width 17.1 H Platelet Count 262 Mean Platelet Volume 10.0 Immature Granulocytes % 0.600 H Neutrophils % 91.0 H Lymphocytes % 4.5 L Monocytes % 3.8 Eosinophils % 0.0 Basophils % 0.1 Nucleated Red Blood Cells % 0.0 Immature Granulocytes # 0.100 H Neutrophils # 15.3 H Lymphocytes # 0.8 Monocytes # 0.6 Eosinophils # 0.0 Basophils # 0.0 Nucleated Red Blood Cells # 0.0 Sodium Level 145 H Potassium Level 4.3 Chloride Level 90 L Carbon Dioxide Level 39 H Anion Gap 16 H Blood Urea Nitrogen 42 #H Creatinine 0.78 Est Glomerular Filtrat Rate mL/min > 60 Glucose Level 154 Calcium Level 8.8 Phosphorus Level 2.8 Magnesium Level 2.4 Medications Medication Current Medications IV Flush (NS 3 ml) 3 ml PER PROTOCOL IV ; Start 08/08/18 at 17:30 Ondansetron HCl (Zofran Inj) 4 mg Q6H PRN IV NAUSEA; Start 08/08/18 at 17:30 Haloperidol (Haldol) 5 mg PRN PRN IM AGGITATED Last administered on 08/08/18at 23:56; Admin Dose 5 MG; Start 08/08/18 at 22:00 Propofol 100 ml @ 6.111 mls/ hr Q12H IV Last administered on 08/15/18at 05:57; Admin Dose 36.666 MLS/HR; Start 08/09/18 at 05:30 Fentanyl 100 ml @ 2.5 mls/hr TITRATE IV Last administered on 08/14/18at 22:55; Admin Dose 5 MLS/HR; Start 08/09/18 at 06:30 Enoxaparin Sodium (Lovenox) 40 mg Q12H SC Last administered on 08/14/18 20:29; Admin Dose 40 MG; Start 08/09/18 at 21:00 Furosemide (Lasix) 40 mg BID DIURETICS IV Last administered on 08/15/18at 0 5:57; Admin Dose 40 MG; Start 08/09/18 at 11:00 Famotidine (Pepcid) 20 mg BID GTB Last administered on 08/14/18 20:25; Admin Dose 20 MG; Start 08/12/18 at 09:00 Midazolam HCl 50 ml @ 1 mls/hr TITRATE IV ; Start 08/13/18 at 08:30 Methylprednisolone Sodium Succinate (Solu-Medrol) 40 mg Q6 IV Last administered on 08/15/18at 05:57; Admin Dose 40 MG; Start 08/13/18 at 12:00 Scopolamine (Transderm-Scop) 1 patch Q72H TRANSDERM Last administered on 08/13/18at 21:17; Admin Dose 1 PATCH; Start 08/13/18 at 20:00 Docusate Sodium (Colace Liquid Cup) 200 mg BID NGT Last administered on 08/14/18at 20:25; Admin Dose 200 MG; Start 08/14/18 at 21:00 TAVIA KING Aug 15, 2018 08:38
[2018-08-15] MEDS: DOCUSATE SODIUM 10 MG/ML (10ML CUP) NGT SCH ×2 (08:49→20:34)
[2018-08-15] MEDS: FAMOTIDINE 20 MG TAB GTB SCH ×2 (08:49→20:34)
--- NOTE | 2018-08-15 08:58 | PN ---
Date/Time of Note Date/Time of Note DATE: 08/15/18 TIME: 08:49 Assessment/Plan VTE Prophylaxis Risk score (from Ns)>0 risk: 8 SCD applied (from [facility] [place]): No SCD contraindicated: other Pharmacological prophylaxis: LMWH Lines/Catheters IV C[facility]ter Type (from [facility] Mid Line Urinary Cath still in place: Yes Reason Cath still needed: urinary retention Assessment/Plan Hospital Course S: Pt still intubated, sedated. He had fever last night, seen by pulmonary team this morning. Restarted on antibiotics this morning. Still on IV Lasix with good urine output, tolerating tube feeds. O: VS - see below PE: Gen: Morbidly obese man lying in bed intubated and sedated. Neck: Obese, no lymphadenopathy appreciated HEENT: Clear oropharynx, moist mucous membranes Card: Regular rate and rhythm, distant heart sounds Pulm: some distant lung sounds. Abd: Morbidly obese, soft, nontender. Ext: Bilateral LE with redness and chronic venous stasis changes. Neuro: unable to fully assess Assessment/Plan: 32M morbidly obese presents with hypercapnic respiratory failure and pneumonia. #Hypoxic and hypercapnic respiratory failure - Likely from obesity (ANDREW), exacerbated by pneumonia Intubated 08/09-was taken off abx 48 hours ago, restarted this morning- still appears hypoxic. Patient had echo 07/16 which showed preserved EF 50-55% - For now continue IV diuresis, mechanical ventilation via pulmonary recommendations - Monitor ins and outs, BUN/creatinine levels (BUN has been increasing however) -Continue NG tube feeds # Pneumonia- Bilateral patchy infiltrates on CXR,WBC 16 on admission-had been improving, but patient with positive fevers in the last 24 hours, and white blood cell count back to 16.8 today, again restarted on antibiotics this morning- Sputum culture negative, legionella negative. -Monitor, continue current antibiotics, follow up pulmonary and follow-up ID recommendations. - Unfortunately patient exceeds the weight limit for CT scanner, monitor for now DVT: lovenox GI: Protonix IV Critical care time spent in patient care today equals 40 minutes. Result Diagram: 08/15/18 0300 08/15/18 0300 Results 24hrs Laboratory Tests Test 08/14/18 15:36 08/15/18 03:00 08/15/18 08:03 Troponin I < 0.012 White Blood Count 16.8 #H Red Blood Count 4.91 Hemoglobin 11.2 L Hematocrit 41.6 L Mean Corpuscular Volume 84.7 Mean Corpuscular Hemoglobin 22.8 L Mean Corpuscular 26.9 L Hemoglobin Concent Red Cell Distribution Width 17.1 H Platelet Count 262 Mean Platelet Volume 10.0 Immature Granulocytes % 0.600 H Neutrophils % 91.0 H Lymphocytes % 4.5 L Monocytes % 3.8 Eosinophils % 0.0 Basophils % 0.1 Nucleated Red Blood Cells % 0.0 Immature Granulocytes # 0.100 H Neutrophils # 15.3 H Lymphocytes # 0.8 Monocytes # 0.6 Eosinophils # 0.0 Basophils # 0.0 Nucleated Red Blood Cells # 0.0 Sodium Level 145 H Potassium Level 4.3 Chloride Level 90 L Carbon Dioxide Level 39 H Anion Gap 16 H Blood Urea Nitrogen 42 #H Creatinine 0.78 Est Glomerular Filtrat > 60 Rate mL/min Glucose Level 154 Calcium Level 8.8 Phosphorus Level 2.8 Magnesium Level 2.4 Blood Gas Specimen Source Blood arterial Arterial Blood Date Drawn 08/15/2018 8:15:45 AM Arterial Blood pH 7.434 (Temp corrected) Arterial Blood pCO2 69.3 H (Temp correct) Arterial Blood pO2 61.9 L (Temp corrected) Arterial Blood HCO3 45.4 *H Arterial Blood Base Excess 17.7 H Arterial Blood 90.2 L Oxygen Saturation James Test ACCEPTAB Arterial Blood Gas Right Radial Puncture Site Arterial 0.9 Blood Carboxyhemoglobin Arterial Blood Methemoglobin 0.1 Blood Gas A-a O2 143.6 H Differential Oxyhemoglobin Percent 89.3 L Blood Gas Temperature 37.0 Blood Gas Respiration Rate 24.0 Blood Gas Actual 24 Respiration Rate Blood Gas Modality VENT - AC FiO2 40.0 Blood Gas Tidal Volume 500.0 Blood Gas Low PEEP Setting 10.0 Blood Gas Critical Value SHERYL BOTELLO Read Back Blood Gas Notified Whom TM Blood Gas Notified Time 08/15/2018 8:42:30 AM Exam/Review of Systems Exam Vitals Vital Signs Date Temp Pulse Resp B/P (MAP) Pulse Ox O2 O2 Flow FiO2 Time Delivery Rate 08/15/18 40 08:00 08/15/18 100.1 69 24 116/53 93 Mechanica 08:00 (74) l Ventilato r Intake and Output 08/14/18 08/14/18 08/15/18 1515:00 23:00 07:00 IntakeIntake Total 889.064 ml 738.330 ml 808.328 ml OutputOutput Total 700 ml 880 ml 575 ml BalanceBalance 189.064 ml -141.670 ml 233.328 ml Results Results 24hrs Laboratory Tests Test 08/14/18 15:36 08/15/18 03:00 08/15/18 08:03 Troponin I < 0.012 White Blood Count 16.8 #H Red Blood Count 4.91 Hemoglobin 11.2 L Hematocrit 41.6 L Mean Corpuscular Volume 84.7 Mean Corpuscular Hemoglobin 22.8 L Mean Corpuscular 26.9 L Hemoglobin Concent Red Cell Distribution Width 17.1 H Platelet Count 262 Mean Platelet Volume 10.0 Immature Granulocytes % 0.600 H Neutrophils % 91.0 H Lymphocytes % 4.5 L Monocytes % 3.8 Eosinophils % 0.0 Basophils % 0.1 Nucleated Red Blood Cells % 0.0 Immature Granulocytes # 0.100 H Neutrophils # 15.3 H Lymphocytes # 0.8 Monocytes # 0.6 Eosinophils # 0.0 Basophils # 0.0 Nucleated Red Blood Cells # 0.0 Sodium Level 145 H Potassium Level 4.3 Chloride Level 90 L Carbon Dioxide Level 39 H Anion Gap 16 H Blood Urea Nitrogen 42 #H Creatinine 0.78 Est Glomerular Filtrat > 60 Rate mL/min Glucose Level 154 Calcium Level 8.8 Phosphorus Level 2.8 Magnesium Level 2.4 Blood Gas Specimen Source Blood arterial Arterial Blood Date Drawn 08/15/2018 8:15:45 AM Arterial Blood pH 7.434 (Temp corrected) Arterial Blood pCO2 69.3 H (Temp correct) Arterial Blood pO2 61.9 L (Temp corrected) Arterial Blood HCO3 45.4 *H Arterial Blood Base Excess 17.7 H Arterial Blood 90.2 L Oxygen Saturation James Test ACCEPTAB Arterial Blood Gas Right Radial Puncture Site Arterial 0.9 Blood Carboxyhemoglobin Arterial Blood Methemoglobin 0.1 Blood Gas A-a O2 143.6 H Differential Oxyhemoglobin Percent 89.3 L Blood Gas Temperature 37.0 Blood Gas Respiration Rate 24.0 Blood Gas Actual 24 Respiration Rate Blood Gas Modality VENT - AC FiO2 40.0 Blood Gas Tidal Volume 500.0 Blood Gas Low PEEP Setting 10.0 Blood Gas Critical Value SHERYL BOTELLO Read Back Blood Gas Notified Whom TM Blood Gas Notified Time 08/15/2018 8:42:30 AM Medications Medication Current Medications IV Flush (NS 3 ml) 3 ml PER PROTOCOL IV ; Start 08/08/18 at 17:30 Ondansetron HCl (Zofran Inj) 4 mg Q6H PRN IV NAUSEA; Start 08/08/18 at 17:30 Haloperidol (Haldol) 5 mg PRN PRN IM AGGITATED Last administered on 08/08/18at 23:56; Admin Dose 5 MG; Start 08/08/18 at 22:00 Propofol 100 ml @ 6.111 mls/ hr Q12H IV Last administered on 08/15/18 05:57; Admin Dose 36.666 MLS/HR; Start 08/09/18 at 05:30 Fentanyl 100 ml @ 2.5 mls/hr TITRATE IV Last administered on 08/14/18 22:55; Admin Dose 5 MLS/HR; Start 08/09/18 at 06:30 Enoxaparin Sodium (Lovenox) 40 mg Q12H SC Last administered on 08/14/18 20:29; Admin Dose 40 MG; Start 08/09/18 at 21:00 Furosemide (Lasix) 40 mg BID DIURETICS IV Last administered on 08/15/18 05:57; Admin Dose 40 MG; Start 08/09/18 at 11:00 Famotidine (Pepcid) 20 mg BID GTB Last administered on 08/14/18at 20:25; Admin Dose 20 MG; Start 08/12/18 at 09:00 Midazolam HCl 50 ml @ 1 mls/hr TITRATE IV ; Start 08/13/18 at 08:30 Methylprednisolone Sodium Succinate (Solu-Medrol) 40 mg Q6 IV Last administered on 08/15/18 05:57; Admin Dose 40 MG; Start 08/13/18 at 12:00 Scopolamine (Transderm-Scop) 1 patch Q72H TRANSDERM Last administered on at 21:17; Admin Dose 1 PATCH; Start 08/13/18 at 20:00 Docusate Sodium (Colace Liquid Cup) 200 mg BID NGT Last administered on 08/14/18at 20:25; Admin Dose 200 MG; Start 08/14/18 at 21:00 Cefepime HCl 50 ml @ 100 mls/hr Q12 IVPB ; Start 08/15/18 at 09:00; Status UNV Vancomycin HCl (Vanco Iv Per Pharmacy) VANCOMYCIN PER PHARMACY PER PROTOCOL XX ; Start 08/15/18 at 09:00; Status UNV RC GO Aug 15, 2018 08:58
[2018-08-15] MEDS ORDERED: VANCOMYCIN IV PER PHARMACY XX SCH (09:00)
[2018-08-15] MEDS: ENOXAPARIN 40 MG/0.4 ML SYG SC SCH ×2 (09:17→21:36)
[2018-08-15] MEDS: CEFEPIME 1GM/50 ML (PMX) 50 ML IVPB SCH ×2 (09:23→20:34)
[2018-08-15] MEDS ORDERED: VANCOMYCIN HCL 2 GM in SOD CHLORIDE 0.9% 500 ML IVPB SCH (11:00)
--- NOTE | 2018-08-15 16:39 | CONS ---
Assessment/Plan Assessment/Plan Hospital Course (Demo Recall) Patient had been spiking low-grade fevers was started on broad-spectrum coverage with vancomycin and cefepime per pulmonary. He remains on steroids. He is intubated sedated in no distress. WBC today 16.8 platelets 262 neutrophils 91 BUN 42 creatinine 0.78 Chest x-ray this morning revealed cardiomegaly with bilateral perihilar and basilar airspace opacities. Possible small left pleural effusion. Indwelling: Endotracheal tube NG tube Santiago catheter, PICC line Antimicrobials: Vanco, cefepime Physical examination: This is a morbidly obese well-developed middle-aged man who is intubated sedated in no distress. Head atraumatic normocephalic, bucal mucosa dry, neck is obese. Chest rise symmetrical breath sounds diminished. Heart: S1-S2. Abdomen obese distended bowel sounds hypoactive. Extremities with edema Assessment: 1. Acute hypoxemic respiratory failure, possible pneumonia 2. Morbid obesity 3. Sleep apnea with hypoventilation syndrome 4. Leukocytosis, patient is on steroids Plan: Clinically unchanged, continue present care, antibiotics vent support per pulmonary, reculture for T 101 DW RN Consultation Date/Type/Reason Admit Date/Time Aug 08, 2018 at 17:18 Initial Consult Date 08/09/18 Type of Consult ID Date/Time of Note DATE: 08/15/18 TIME: 16:37 Exam/Review of Systems Exam Vitals Vital Signs Date Temp Pulse Resp B/P (MAP) Pulse Ox O2 O2 Flow FiO2 Time Delivery Rate 08/15/18 89 16:00 08/15/18 120/61 94 13:00 (80) 08/15/18 100.7 24 Mechanica 12:00 l Ventilato r 08/15/18 40 08:00 Intake and Output 08/14/18 08/14/18 08/15/18 1414:59 22:59 06:59 IntakeIntake Total 877.953 ml 738.330 ml 868.328 ml OutputOutput Total 1000 ml 750 ml 755 ml BalanceBalance -122.047 ml -11.670 ml 113.328 ml Results Result Diagram: 08/15/18 0300 08/15/18 0300 Results 24hrs Laboratory Tests Test 08/15/18 03:00 08/15/18 08:03 White Blood Count 16.8 #H Red Blood Count 4.91 Hemoglobin 11.2 L Hematocrit 41.6 L Mean Corpuscular Volume 84.7 Mean Corpuscular Hemoglobin 22.8 L Mean Corpuscular Hemoglobin Concent 26.9 L Red Cell Distribution Width 17.1 H Platelet Count 262 Mean Platelet Volume 10.0 Immature Granulocytes % 0.600 H Neutrophils % 91.0 H Lymphocytes % 4.5 L Monocytes % 3.8 Eosinophils % 0.0 Basophils % 0.1 Nucleated Red Blood Cells % 0.0 Immature Granulocytes # 0.100 H Neutrophils # 15.3 H Lymphocytes # 0.8 Monocytes # 0.6 Eosinophils # 0.0 Basophils # 0.0 Nucleated Red Blood Cells # 0.0 Sodium Level 145 H Potassium Level 4.3 Chloride Level 90 L Carbon Dioxide Level 39 H Anion Gap 16 H Blood Urea Nitrogen 42 #H Creatinine 0.78 Est Glomerular Filtrat Rate mL/min > 60 Glucose Level 154 Calcium Level 8.8 Phosphorus Level 2.8 Magnesium Level 2.4 Blood Gas Specimen Source Blood arterial Arterial Blood Date Drawn 08/15/2018 8:15:45 AM Arterial Blood pH (Temp corrected) 7.434 Arterial Blood pCO2 (Temp correct) 69.3 H Arterial Blood pO2 (Temp corrected) 61.9 L Arterial Blood HCO3 45.4 *H Arterial Blood Base Excess 17.7 H Arterial Blood Oxygen Saturation 90.2 L James Test ACCEPTAB Arterial Blood Gas Puncture Site Right Radial Arterial Blood Carboxyhemoglobin 0.9 Arterial Blood Methemoglobin 0.1 Blood Gas A-a O2 Differential 143.6 H Oxyhemoglobin Percent 89.3 L Blood Gas Temperature 37.0 Blood Gas Respiration Rate 24.0 Blood Gas Actual Respiration Rate 24 Blood Gas Modality VENT - AC FiO2 40.0 Blood Gas Tidal Volume 500.0 Blood Gas Low PEEP Setting 10.0 Blood Gas Critical Value Read Back SHERYL BOTELLO Blood Gas Notified Whom TM Blood Gas Notified Time 08/15/2018 8:42:30 AM Medications Medication Current Medications IV Flush (NS 3 ml) 3 ml PER PROTOCOL IV ; Start 08/08/18 at 17:30 Ondansetron HCl (Zofran Inj) 4 mg Q6H PRN IV NAUSEA; Start 08/08/18 at 17:30 Haloperidol (Haldol) 5 mg PRN PRN IM AGGITATED Last administered on 08/08/18at 23:56; Admin Dose 5 MG; Start 08/08/18 at 22:00 Propofol 100 ml @ 6.111 mls/ hr Q12H IV Last administered on 08/15/18 15:21; Admin Dose 36.666 MLS/HR; Start 08/09/18 at 05:30 Fentanyl 100 ml @ 2.5 mls/hr TITRATE IV Last administered on 08/14/18at 22:55; Admin Dose 5 MLS/HR; Start 08/09/18 at 06:30 Enoxaparin Sodium (Lovenox) 40 mg Q12H SC Last administered on 08/15/18 09:17; Admin Dose 40 MG; Start 08/09/18 at 21:00 Furosemide (Lasix) 40 mg BID DIURETICS IV Last administered on 08/15/18 05:57; Admin Dose 40 MG; Start 08/09/18 at 11:00 Famotidine (Pepcid) 20 mg BID GTB Last administered on 08/15/18 08:49; Admin Dose 20 MG; Start 08/12/18 at 09:00 Midazolam HCl 50 ml @ 1 mls/hr TITRATE IV ; Start 08/13/18 at 08:30 Methylprednisolone Sodium Succinate (Solu-Medrol) 40 mg Q6 IV Last administered on 08/15/18 12:15; Admin Dose 40 MG; Start 08/13/18 at 12:00 Scopolamine (Transderm-Scop) 1 patch Q72H TRANSDERM Last administered on 08/13/18at 21:17; Admin Dose 1 PATCH; Start 08/13/18 at 20:00 Docusate Sodium (Colace Liquid Cup) 200 mg BID NGT Last administered on 08/15/18 08:49; Admin Dose 200 MG; Start 08/14/18 at 21:00 Cefepime HCl 50 ml @ 100 mls/hr Q12 IVPB Last administered on 08/15/18 09:23; Admin Dose 100 MLS/HR; Start 08/15/18 at 09:30 Vancomycin HCl (Vanco Iv Per Pharmacy) VANCOMYCIN PER PHARMACY PER PROTOCOL XX ; Start 08/15/18 at 09:00 Vancomycin HCl 1.5 gm/Sodium Chloride 250 ml @ 83.333 mls/ hr Q12H IVPB ; Start 08/15/18 at 23:00 JOCELNY VILLALTA NP Aug 15, 2018 16:39
[2018-08-15] MEDS: FENTAnyl (DRIP) 1000 mcg/100mL 100 ML IV SCH (18:55)
[2018-08-15] MEDS: VANCOMYCIN HCL 1.5 GM in SOD CHLORIDE 0.9% 250 ML IVPB SCH (22:45)
[2018-08-16] VITALS (43 sets, daily range): BP systolic 113–137; BP diastolic 49–71; PULSE 54–92; RESP 18–24
[2018-08-16] MEDS: PROPOFOL 100 ML IV SCH ×8 (00:27→21:19)
[2018-08-16] MEDS: METHYLPREDNISOLONE 40 MG INJ IV SCH ×4 (01:09→18:02)
[2018-08-16] MEDS: FENTAnyl (DRIP) 1000 mcg/100mL 100 ML IV SCH ×2 (05:05→18:12)
[2018-08-16] MEDS: FUROSEMIDE 40 MG INJ IV SCH (06:53)
[2018-08-16] MEDS: DOCUSATE SODIUM 10 MG/ML (10ML CUP) NGT SCH ×2 (08:31→21:18)
[2018-08-16] MEDS: FAMOTIDINE 20 MG TAB GTB SCH ×2 (08:31→21:18)
[2018-08-16] MEDS: HALOPERIDOL 5 MG INJ IM PRN (08:32)
[2018-08-16] MEDS: CEFEPIME 1GM/50 ML (PMX) 50 ML IVPB SCH ×2 (08:32→21:18)
[2018-08-16] MEDS: ENOXAPARIN 40 MG/0.4 ML SYG SC SCH ×2 (08:41→21:21)
--- NOTE | 2018-08-16 09:05 | CONS ---
Assessment/Plan Assessment/Plan Assessment/Plan (Daily) Chest x-ray was reviewed from today which is again showing a very mild interstitial pattern with improvement in pulmonary vascular congestion. Cardiomegaly is persistent. Ventilator setting; AC of 24, tidal volume 500, PEEP of 10, 40% FiO2. Patient is currently on propofol 40 mics per kilogram per minute, fentanyl 75 mics per hour. Assessment and recommendations; 1. Patient with history of chronic type II respiratory failure and underlying sleep apnea/obesity hypoventilation syndrome admitted for severe acute on chronic hypercapnic respiratory failure, despite maximal ventilation patient s till showing persistent hypercapnia. 2. CHF with interval improvement. 3. Possibly superimposed pneumonia. Patient started on vancomycin and cefepime yesterday with improving leukocytosis. 4. Interstitial lung disease, possibly sarcoidosis. Started on Solu-Medrol. Patient's clinical status and body habitus precluding CT imaging of the chest. 5. Mild anemia. 6. Patient was recently prescribed BiPAP which he has been using 2 weeks prior to admission with apparent device failure due to underlying severity of sleep apnea. Continue on supportive care. Decrease assist control rate to 18 with PEEP to 8, obtain ABG to assess ventilatory status. If the patient shows persistent hypercapnia, then he will likely need to have a tracheostomy performed. I did have a detailed discussion with the patient's mother at bedside and answered all her questions. 35 minutes of critical care time was spent evaluating the patient. Consultation Date/Type/Reason Admit Date/Time Aug 08, 2018 at 17:18 Initial Consult Date 08/09/18 Type of Consult Pulmonary/critical care Consult dictated by mistake on last admission chart review. Please refer to last admission for consult note. Date/Time of Note DATE: 08/16/18 TIME: 09:00 24 HR Interval Summary Free Text/Dictation Patient's condition remains critical. However oxygenation has improved. Patient has remained hemodynamically stable. General exam; young male, morbidly obese, orally intubated, sedated, currently in no distress. Exam/Review of Systems Exam Vitals Vital Signs Date Temp Pulse Resp B/P (MAP) Pulse Ox O2 O2 Flow FiO2 Time Delivery Rate 08/16/18 71 08:00 08/16/18 129/70 96 07:00 (89) 08/16/18 100.0 06:00 08/16/18 24 40 05:35 08/15/18 Mechanica 19:00 l Ventilato r Intake and Output 08/15/18 08/15/18 08/16/18 1414:59 22:59 06:59 IntakeIntake Total 733.328 ml 1347.274 ml 984.099 ml OutputOutput Total 1125 ml 1175 ml 1300 ml BalanceBalance -391.672 ml 172.274 ml -315.901 ml Exam HEENT exam; supple neck JVD difficult to see because of short neck. Orally intubated. Patient has fair dentition. No neck masses. Pupils are small bilaterally. Chest exam; diminished breath sounds bilaterally. No added sounds. S1-S2 audible, no murmurs. Regular rhythm. Abdomen exam; soft, protuberant. Organomegaly difficult to assess. Bowel sounds audible. Extremity exam; no peripheral edema. Pulses 1+. [employer] SUPER[employer] exam; patient is sedated. Results Result Diagram: 08/16/18 0510 08/16/18 0510 Results 24hrs Laboratory Tests Test 08/16/18 05:10 08/16/18 07:21 White Blood Count 11.5 #H Red Blood Count 4.89 Hemoglobin 10.9 L Hematocrit 41.7 L Mean Corpuscular Volume 85.3 Mean Corpuscular Hemoglobin 22.3 L Mean Corpuscular Hemoglobin Concent 26.1 L Red Cell Distribution Width 17.5 H Platelet Count 288 Mean Platelet Volume 9.6 Immature Granulocytes % 0.700 H Neutrophils % 83.7 H Lymphocytes % 9.6 L Monocytes % 5.9 Eosinophils % 0.0 Basophils % 0.1 Nucleated Red Blood Cells % 0.0 Immature Granulocytes # 0.080 H Neutrophils # 9.6 H Lymphocytes # 1.1 Monocytes # 0.7 Eosinophils # 0.0 Basophils # 0.0 Nucleated Red Blood Cells # 0.0 Sodium Level 149 H Potassium Level 3.9 Chloride Level 96 L Carbon Dioxide Level 41 *H Anion Gap 12 Blood Urea Nitrogen 50 H Creatinine 1.01 Est Glomerular Filtrat Rate mL/min > 60 Glucose Level 168 Calcium Level 9.1 Blood Gas Specimen Source Blood arterial Arterial Blood Date Drawn 08/16/2018 7:46:39 AM Arterial Blood pH (Temp corrected) 7.442 Arterial Blood pCO2 (Temp correct) 63.1 H Arterial Blood pO2 (Temp corrected) 71.2 L Arterial Blood HCO3 42.1 *H Arterial Blood Base Excess 15.1 H Arterial Blood Oxygen Saturation 93.3 L James Test ACCEPTAB Arterial Blood Gas Puncture Site Left Radial Arterial Blood Carboxyhemoglobin 0.9 Arterial Blood Methemoglobin 0.3 Blood Gas A-a O2 Differential 141.4 H Oxyhemoglobin Percent 92.2 L Blood Gas Temperature 37.0 Blood Gas Respiration Rate 24.0 Blood Gas Actual Respiration Rate 26 Blood Gas Modality VENT - AC FiO2 40.0 Blood Gas Tidal Volume 500.0 Blood Gas Low PEEP Setting 10.0 Blood Gas Critical Value Read Back SHERYL BOTELLO Blood Gas Notified Whom TM Blood Gas Notified Time 08/16/2018 8:01:49 AM Medications Medication Current Medications IV Flush (NS 3 ml) 3 ml PER PROTOCOL IV ; Start 08/08/18 at 17:30 Ondansetron HCl (Zofran Inj) 4 mg Q6H PRN IV NAUSEA; Start 08/08/18 at 17:30 Haloperidol (Haldol) 5 mg PRN PRN IM AGGITATED Last administered on 08/16/18 08:32; Admin Dose 5 MG; Start 08/08/18 at 22:00 Propofol 100 ml @ 6.111 mls/ hr Q12H IV Last administered on 08/16/18 07:57; Admin Dose 42.777 MLS/HR; Start 08/09/18 at 05:30 Fentanyl 100 ml @ 2.5 mls/hr TITRATE IV Last administered on 08/16/18 05:05; Admin Dose 5.5 MLS/HR; Start 08/09/18 at 06:30 Enoxaparin Sodium (Lovenox) 40 mg Q12H SC Last administered on 08/16/18 08:41; Admin Dose 40 MG; Start 08/09/18 at 21:00 Furosemide (Lasix) 40 mg BID DIURETICS IV Last administered on 08/16/18 06:53; Admin Dose 40 MG; Start 08/09/18 at 11:00 Famotidine (Pepcid) 20 mg BID GTB Last administered on 08/16/18 08:31; Admin Dose 20 MG; Start 08/12/18 at 09:00 Midazolam HCl 50 ml @ 1 mls/hr TITRATE IV ; Start 08/13/18 at 08:30 Methylprednisolone Sodium Succinate (Solu-Medrol) 40 mg Q6 IV Last administered on 08/16/18at 06:53; Admin Dose 40 MG; Start 08/13/18 at 12:00 Scopolamine (Transderm-Scop) 1 patch Q72H TRANSDERM Last administered on 08/13/18at 21:17; Admin Dose 1 PATCH; Start 08/13/18 at 20:00 Docusate Sodium (Colace Liquid Cup) 200 mg BID NGT Last administered on 08/16/18 08:31; Admin Dose 200 MG; Start 08/14/18 at 21:00 Cefepime HCl 50 ml @ 100 mls/hr Q12 IVPB Last administered on 08/16/18at 08:32; Admin Dose 100 MLS/HR; Start 08/15/18 at 09:30 Vancomycin HCl (Vanco Iv Per Pharmacy) VANCOMYCIN PER PHARMACY PER PROTOCOL XX ; Start 08/15/18 at 09:00 Vancomycin HCl 1.5 gm/Sodium Chloride 250 ml @ 83.333 mls/ hr Q12H IVPB Last administered on 08/15/18at 22:45; Admin Dose 83.333 MLS/HR; Start 08/15/18 at 23:00 TAVIA KING Aug 16, 2018 09:04
--- NOTE | 2018-08-16 09:57 | PN ---
Date/Time of Note Date/Time of Note DATE: 08/16/18 TIME: 09:54 Assessment/Plan VTE Prophylaxis Risk score (from Ns)>0 risk: 11 SCD applied (from [facility]): No SCD contraindicated: other Pharmacological prophylaxis: LMWH Lines/Catheters IV Catheter Type (from [facility]): Mid Line Urinary Cath still in place: Yes Reason Cath still needed: urinary retention Assessment/Plan Hospital Course S: Pt still intubated, sedated. Still with persistent fevers, seen by ID team yesterday and pulmonary team this morning. Chest x-ray results noted. O: VS - see below PE: Gen: Morbidly obese man lying in bed intubated and sedated. Neck: Obese, no lymphadenopathy appreciated HEENT: Clear oropharynx, moist mucous membranes Card: Regular rate and rhythm, distant heart sounds Pulm: some distant lung sounds. Abd: Morbidly obese, soft, nontender. Ext: Bilateral LE with redness and chronic venous stasis changes. Neuro: unable to fully assess Assessment/Plan: 32M morbidly obese presents with hypercapnic respiratory failure and pneumonia. #Hypoxic and hypercapnic respiratory failure - Likely from obesity (ANDREW), exacerbated by likely pneumonia - Intubated 08/09-has been on broad-spectrum antibiotics. - For now continue IV diuresis, mechanical ventilation via pulmonary recommendations -per their recommendations if the patient continues to be persistently hypercapnic he may require tracheostomy. - Monitor ins and outs, BUN/creatinine levels (BUN has been increasing however) - Continue NG tube feeds, antibiotics # Pneumonia- Bilateral patchy infiltrates on CXR,WBC 16 on admission-but again with persistent fever since yesterday, white blood cell count slightly improved, on broad-spectrum antibiotics. -Monitor, continue current antibiotics, follow up pulmonary and follow-up ID recommendations. - Unfortunately patient exceeds the weight limit for CT scanner, monitor for now DVT: lovenox GI: Protonix IV Critical care time spent in patient care today equals 40 minutes. Result Diagram: 08/16/18 0510 08/16/18 0510 Results 24hrs Laboratory Tests Test 08/16/18 05:10 08/16/18 07:21 White Blood Count 11.5 #H Red Blood Count 4.89 Hemoglobin 10.9 L Hematocrit 41.7 L Mean Corpuscular Volume 85.3 Mean Corpuscular Hemoglobin 22.3 L Mean Corpuscular Hemoglobin Concent 26.1 L Red Cell Distribution Width 17.5 H Platelet Count 288 Mean Platelet Volume 9.6 Immature Granulocytes % 0.700 H Neutrophils % 83.7 H Lymphocytes % 9.6 L Monocytes % 5.9 Eosinophils % 0.0 Basophils % 0.1 Nucleated Red Blood Cells % 0.0 Immature Granulocytes # 0.080 H Neutrophils # 9.6 H Lymphocytes # 1.1 Monocytes # 0.7 Eosinophils # 0.0 Basophils # 0.0 Nucleated Red Blood Cells # 0.0 Sodium Level 149 H Potassium Level 3.9 Chloride Level 96 L Carbon Dioxide Level 41 *H Anion Gap 12 Blood Urea Nitrogen 50 H Creatinine 1.01 Est Glomerular Filtrat Rate mL/min > 60 Glucose Level 168 Calcium Level 9.1 Blood Gas Specimen Source Blood arterial Arterial Blood Date Drawn 08/16/2018 7:46:39 AM Arterial Blood pH (Temp corrected) 7.442 Arterial Blood pCO2 (Temp correct) 63.1 H Arterial Blood pO2 (Temp corrected) 71.2 L Arterial Blood HCO3 42.1 *H Arterial Blood Base Excess 15.1 H Arterial Blood Oxygen Saturation 93.3 L James Test ACCEPTAB Arterial Blood Gas Puncture Site Left Radial Arterial Blood Carboxyhemoglobin 0.9 Arterial Blood Methemoglobin 0.3 Blood Gas A-a O2 Differential 141.4 H Oxyhemoglobin Percent 92.2 L Blood Gas Temperature 37.0 Blood Gas Respiration Rate 24.0 Blood Gas Actual Respiration Rate 26 Blood Gas Modality VENT - AC FiO2 40.0 Blood Gas Tidal Volume 500.0 Blood Gas Low PEEP Setting 10.0 Blood Gas Critical Value Read Back SHERYL BOTELLO Blood Gas Notified Whom TM Blood Gas Notified Time 08/16/2018 8:01:49 AM Exam/Review of Systems Exam Vitals Vital Signs Date Temp Pulse Resp B/P (MAP) Pulse Ox O2 O2 Flow FiO2 Time Delivery Rate 08/16/18 71 08:00 08/16/18 129/70 96 07:00 (89) 08/16/18 100.0 06:00 08/16/18 24 40 05:35 08/15/18 Mechan[place] 19:00 l Ventilato r Intake and Output 08/15/18 08/15/18 08/16/18 1515:00 23:00 07:00 IntakeIntake Total 733.328 ml 1414.885 ml 814.822 ml OutputOutput Total 1225 ml 1075 ml 1300 ml BalanceBalance -491.672 ml 339.885 ml -485.178 ml Results Results 24hrs Laboratory Tests Test 08/16/18 05:10 08/16/18 07:21 White Blood Count 11.5 #H Red Blood Count 4.89 Hemoglobin 10.9 L Hematocrit 41.7 L Mean Corpuscular Volume 85.3 Mean Corpuscular Hemoglobin 22.3 L Mean Corpuscular Hemoglobin Concent 26.1 L Red Cell Distribution Width 17.5 H Platelet Count 288 Mean Platelet Volume 9.6 Immature Granulocytes % 0.700 H Neutrophils % 83.7 H Lymphocytes % 9.6 L Monocytes % 5.9 Eosinophils % 0.0 Basophils % 0.1 Nucleated Red Blood Cells % 0.0 Immature Granulocytes # 0.080 H Neutrophils # 9.6 H Lymphocytes # 1.1 Monocytes # 0.7 Eosinophils # 0.0 Basophils # 0.0 Nucleated Red Blood Cells # 0.0 Sodium Level 149 H Potassium Level 3.9 Chloride Level 96 L Carbon Dioxide Level 41 *H Anion Gap 12 Blood Urea Nitrogen 50 H Creatinine 1.01 Est Glomerular Filtrat Rate mL/min > 60 Glucose Level 168 Calcium Level 9.1 Blood Gas Specimen Source Blood arterial Arterial Blood Date Drawn 08/16/2018 7:46:39 AM Arterial Blood pH (Temp corrected) 7.442 Arterial Blood pCO2 (Temp correct) 63.1 H Arterial Blood pO2 (Temp corrected) 71.2 L Arterial Blood HCO3 42.1 *H Arterial Blood Base Excess 15.1 H Arterial Blood Oxygen Saturation 93.3 L James Test ACCEPTAB Arterial Blood Gas Puncture Site Left Radial Arterial Blood Carboxyhemoglobin 0.9 Arterial Blood Methemoglobin 0.3 Blood Gas A-a O2 Differential 141.4 H Oxyhemoglobin Percent 92.2 L Blood Gas Temperature 37.0 Blood Gas Respiration Rate 24.0 Blood Gas Actual Respiration Rate 26 Blood Gas Modality VENT - AC FiO2 40.0 Blood Gas Tidal Volume 500.0 Blood Gas Low PEEP Setting 10.0 Blood Gas Critical Value Read Back SHERYL BOTELLO Blood Gas Notified Whom TM Blood Gas Notified Time 08/16/2018 8:01:49 AM Medications Medication Current Medications IV Flush (NS 3 ml) 3 ml PER PROTOCOL IV ; Start 08/08/18 at 17:30 Ondansetron HCl (Zofran Inj) 4 mg Q6H PRN IV NAUSEA; Start 08/08/18 at 17:30 Haloperidol (Haldol) 5 mg PRN PRN IM AGGITATED Last administered on 08/16/18 08:32; Admin Dose 5 MG; Start 08/08/18 at 22:00 Propofol 100 ml @ 6.111 mls/ hr Q12H IV Last administered on 08/16/18 07:57; Admin Dose 42.777 MLS/HR; Start 08/09/18 at 05:30 Fentanyl 100 ml @ 2.5 mls/hr TITRATE IV Last administered on 08/16/18 05:05; Admin Dose 5.5 MLS/HR; Start 08/09/18 at 06:30 Enoxaparin Sodium (Lovenox) 40 mg Q12H SC Last administered on 08/16/18 08:41; Admin Dose 40 MG; Start 08/09/18 at 21:00 Furosemide (Lasix) 40 mg BID DIURETICS IV Last administered on 08/16/18 06:53; Admin Dose 40 MG; Start 08/09/18 at 11:00 Famotidine (Pepcid) 20 mg BID GTB Last administered on 08/16/18 08:31; Admin Dose 20 MG; Start 08/12/18 at 09:00 Midazolam HCl 50 ml @ 1 mls/hr TITRATE IV ; Start 08/13/18 at 08:30 Methylprednisolone Sodium Succinate (Solu-Medrol) 40 mg Q6 IV Last administered on 08/16/18 06:53; Admin Dose 40 MG; Start 08/13/18 at 12:00 Scopolamine (Transderm-Scop) 1 patch Q72H TRANSDERM Last administered on 08/13/18 21:17; Admin Dose 1 PATCH; Start 08/13/18 at 20:00 Docusate Sodium (Colace Liquid Cup) 200 mg BID NGT Last administered on 08/16/18 08:31; Admin Dose 200 MG; Start 08/14/18 at 21:00 Cefepime HCl 50 ml @ 100 mls/hr Q12 IVPB Last administered on 08/16/18 08:32; Admin Dose 100 MLS/HR; Start 08/15/18 at 09:30 Vancomycin HCl (Vanco Iv Per Pharmacy) VANCOMYCIN PER PHARMACY PER PROTOCOL XX ; Start 08/15/18 at 09:00 Vancomycin HCl 1.5 gm/Sodium Chloride 250 ml @ 83.333 mls/ hr Q12H IVPB Last administered on 08/15/18at 22:45; Admin Dose 83.333 MLS/HR; Start 08/15/18 at 23:00 RC GO Aug 16, 2018 09:57
[2018-08-16] MEDS: MIDAZOLAM (DRIP) 50 mg/50 mL 50 ML IV SCH ×2 (11:40→18:03)
[2018-08-16] MEDS: VANCOMYCIN HCL 1.5 GM in SOD CHLORIDE 0.9% 250 ML IVPB SCH (11:41)
--- NOTE | 2018-08-16 16:30 | CONS ---
Assessment/Plan Assessment/Plan Hospital Course (Demo Recall) No acute changes overnight per report patient remains intubated sedated with low-grade fevers T-max last night was 101 to current 100.1 WBC 11.5 neutrophils 83.7 BUN 50 creatinine 1.01 Antimicrobials: Vancomycin cefepime Chest x-ray this morning revealed no significant changes Indwelling: Endotracheal tube NG tube Santiago catheter, PICC line Physical examination: This is a morbidly obese well-developed middle-aged man who is intubated sedated in no distress. Head atraumatic normocephalic, bucal mucosa dry, neck is obese. Chest rise symmetrical breath sounds diminished. Heart: S1-S2. Abdomen obese distended bowel sounds hypoactive. Extremities with edema Assessment: 1. Acute hypoxemic respiratory failure, possible pneumonia 2. Morbid obesity 3. Sleep apnea with hypoventilation syndrome 4. Leukocytosis, patient is on steroids Plan: Clinically unchanged, continue present care, antibiotics vent support per pulmonary, reculture for T 101 DW RN Consultation Date/Type/Reason Admit Date/Time Aug 08, 2018 at 17:18 Initial Consult Date 08/09/18 Type of Consult ID Date/Time of Note DATE: 08/16/18 TIME: 16:29 Exam/Review of Systems Exam Vitals Vital Signs Date Temp Pulse Resp B/P (MAP) Pulse Ox O2 O2 Flow FiO2 Time Delivery Rate 08/16/18 100.1 78 18 136/63 94 [place] 16:00 (87) l Ventilato r 08/16/18 40 15:51 Intake and Output 08/15/18 08/15/18 08/16/18 1515:00 23:00 07:00 IntakeIntake Total 733.328 ml 1414.885 ml 880.322 ml OutputOutput Total 1225 ml 1075 ml 1300 ml BalanceBalance -491.672 ml 339.885 ml -419.678 ml Results Result Diagram: 08/16/18 0510 08/16/18 0510 Results 24hrs Laboratory Tests Test 08/16/18 05:10 08/16/18 07:21 08/16/18 09:30 White Blood Count 11.5 #H Red Blood Count 4.89 Hemoglobin 10.9 L Hematocrit 41.7 L Mean Corpuscular 85.3 Volume Mean Corpuscular 22.3 L Hemoglobin Mean Corpuscular 26.1 L Hemoglobin Concent Red Cell Distribution 17.5 H Width Platelet Count 288 Mean Platelet Volume 9.6 Immature Granulocytes 0.700 H % Neutrophils % 83.7 H Lymphocytes % 9.6 L Monocytes % 5.9 Eosinophils % 0.0 Basophils % 0.1 Nucleated Red Blood 0.0 Cells % Immature Granulocytes 0.080 H # Neutrophils # 9.6 H Lymphocytes # 1.1 Monocytes # 0.7 Eosinophils # 0.0 Basophils # 0.0 Nucleated Red Blood 0.0 Cells # Sodium Level 149 H Potassium Level 3.9 Chloride Level 96 L Carbon Dioxide Level 41 *H Anion Gap 12 Blood Urea Nitrogen 50 H Creatinine 1.01 Est Glomerular > 60 Filtrat Rate mL/min Glucose Level 168 Calcium Level 9.1 Blood Gas Specimen Blood arterial Blood arterial Source Arterial Blood Date 08/16/2018 7:46:39 AM 08/16/2018 9:50:23 AM Drawn Arterial Blood pH 7.442 7.412 (Temp corrected) Arterial Blood pCO2 63.1 H 75.7 H (Temp correct) Arterial Blood pO2 71.2 L 71.0 L (Temp corrected) Arterial Blood HCO3 42.1 *H 47.1 *H Arterial Blood Base 15.1 H 18.7 H Excess Arterial Blood 93.3 L 92.7 L Oxygen Saturation James Test ACCEPTAB ACCEPTAB Arterial Blood Gas Left Radial Left Radial Puncture Site Arterial 0.9 0.8 Blood Carboxyhemoglob in Arterial Blood 0.3 0.2 Methemoglobin Blood Gas A-a O2 141.4 H 127.1 H Differential Oxyhemoglobin Percent 92.2 L 91.8 L Blood Gas Temperature 37.0 37.0 Blood Gas Respiration 24.0 18.0 Rate Blood Gas Actual 26 19 Respiration Rate Blood Gas Modality VENT - AC VENT - AC FiO2 40.0 40.0 Blood Gas Tidal 500.0 500.0 Volume Blood Gas Low PEEP 10.0 8.0 Setting Blood Gas Critical SHERYL SAUCEDO RN Value Read Back Blood Gas Notified TM TM Whom Blood Gas Notified 08/16/2018 8:01:49 AM 08/16/2018 10:16:05 Time AM Medications Medication Current Medications IV Flush (NS 3 ml) 3 ml PER PROTOCOL IV ; Start 08/08/18 at 17:30 Ondansetron HCl (Zofran Inj) 4 mg Q6H PRN IV NAUSEA; Start 08/08/18 at 17:30 Haloperidol (Haldol) 5 mg PRN PRN IM AGGITATED Last administered on 08/16/18 08:32; Admin Dose 5 MG; Start 08/08/18 at 22:00 Propofol 100 ml @ 6.111 mls/ hr Q12H IV Last administered on 08/16/18 13:01; Admin Dose 24.444 MLS/HR; Start 08/09/18 at 05:30 Fentanyl 100 ml @ 2.5 mls/hr TITRATE IV Last administered on 08/16/18 05:05; Admin Dose 5.5 MLS/HR; Start 08/09/18 at 06:30 Enoxaparin Sodium (Lovenox) 40 mg Q12H SC Last administered on 08/16/18 08:41; Admin Dose 40 MG; Start 08/09/18 at 21:00 Famotidine (Pepcid) 20 mg BID GTB Last administered on 08/16/18 08:31; Admin Dose 20 MG; Start 08/12/18 at 09:00 Midazolam HCl 50 ml @ 1 mls/hr TITRATE IV Last administered on 08/16/18 11:40; Admin Dose 1 MLS/HR; Start 08/13/18 at 08:30 Methylprednisolone Sodium Succinate (Solu-Medrol) 40 mg Q6 IV Last administered on 08/16/18 11:41; Admin Dose 40 MG; Start 08/13/18 at 12:00 Scopolamine (Transderm-Scop) 1 patch Q72H TRANSDERM Last administered on 08/13/18 21:17; Admin Dose 1 PATCH; Start 08/13/18 at 20:00 Docusate Sodium (Colace Liquid Cup) 200 mg BID NGT Last administered on 08/16/18 08:31; Admin Dose 200 MG; Start 08/14/18 at 21:00 Cefepime HCl 50 ml @ 100 mls/hr Q12 IVPB Last administered on 08/16/18 08:32; Admin Dose 100 MLS/HR; Start 08/15/18 at 09:30 Vancomycin HCl (Vanco Iv Per Pharmacy) VANCOMYCIN PER PHARMACY PER PROTOCOL XX ; Start 08/15/18 at 09:00 Vancomycin HCl 1.5 gm/Sodium Chloride 250 ml @ 83.333 mls/ hr Q12H IVPB Last administered on 08/16/18at 11:41; Admin Dose 83.333 MLS/HR; Start 08/15/18 at 23:00 Miscellaneous Information (*Rx Drug Level Order Reminder*) VANCO TR LEVEL PRIOR... ONCE ONCE XX ; Start 08/16/18 at 22:00; Stop 08/16/18 at 22:01 Polyethylene Glycol (Miralax) 17 gm DAILY GTB ; Start 08/17/18 at 09:00 Naphazoline HCl (Clear Eyes / Naphcon) 2 drop QID BOTH EYES ; Start 08/16/18 at 17:00 JOCELYN VILLALTA NP Aug 16, 2018 16:30
[2018-08-16] MEDS ORDERED: NAPHAZOLINE 0.012% 15 ML OPH BOTH EYES SCH (17:00)
[2018-08-16] MEDS: NAPHAZOLINE 0.012% 15 ML OPH BOTH EYES SCH (21:18)
[2018-08-16] MEDS: SCOPOLAMINE 1.5 MG PATCH TRANSDERM SCH (21:18)
[2018-08-17] VITALS (31 sets, daily range): BP systolic 115–135; BP diastolic 60–75; PULSE 55–89; RESP 18–25
[2018-08-17] MEDS: VANCOMYCIN HCL 1.5 GM in SOD CHLORIDE 0.9% 250 ML IVPB SCH ×3 (00:17→22:07)
[2018-08-17] MEDS: METHYLPREDNISOLONE 40 MG INJ IV SCH ×4 (00:18→17:24)
[2018-08-17] MEDS: PROPOFOL 100 ML IV SCH ×6 (01:10→22:07)
[2018-08-17] MEDS: MIDAZOLAM (DRIP) 50 mg/50 mL 50 ML IV SCH ×2 (05:16→15:24)
--- NOTE | 2018-08-17 08:26 | CONS ---
Assessment/Plan Assessment/Plan Assessment/Plan (Daily) Ventilator setting; AC of 18, tidal volume 500, PEEP of 8, 40% FiO2. Patient is currently on Versed 5 mg/h, propofol 20 mics per kilogram per minute, fentanyl 50 mics per hour. Assessment recommendations; 1. Patient with history of chronic type II respiratory failure due to likely underlying obesity/hypoventilation syndrome admitted for severe hypercapnic respiratory failure with hypoxemia. Despite maximal ventilation patient is still exhibiting significant hypercapnia. Hypoxemia though has improved. 2. CHF. 3. Mild intravascular volume depletion. Diuretic induced. 4. Improving leukocytosis. Possibly some element of HCAP. Patient currently on appropriate antimicrobial regimen. 5. History of sleep apnea, patient recently prescribed BiPAP which apparently failed to prevent current episode of hypercapnic respiratory failure. This likely is due to severity of sleep apnea. 6. Likely interstitial lung disease with cystic changes seen on chest x-ray, possibly sarcoidosis. Patient empirically started on systemic steroids. Patient body habitus preventing CT imaging of the chest. 7. Mild hypernatremia due to volume contraction. Continue current supportive care. Lasix is on hold. Obtain BMP panel. Monitor serum sodium level. Patient will need to have a tracheostomy performed. I did have a detailed discussion with the patient's mother at bedside she has agreed for the procedure. We will consult cardiothoracic surgeon for the procedure. 35 minutes of critical care time was spent evaluating the patient. Consultation Date/Type/Reason Admit Date/Time Aug 08, 2018 at 17:18 Initial Consult Date 08/09/18 Type of Consult Pulmonary/critical care Consult dictated by mistake on last admission chart review. Please refer to last admission for consult note. Date/Time of Note DATE: 08/17/18 TIME: 08:20 24 HR Interval Summary Free Text/Dictation Patient's condition remains critical. Patient however has remained hemodynamically stable. General exam; young male, morbidly obese, orally intubated, sedated, currently in no distress. Exam/Review of Systems Exam Vitals Vital Signs Date Temp Pulse Resp B/P (MAP) Pulse Ox O2 O2 Flow FiO2 Time Delivery Rate 08/17/18 55 19 93 40 07:35 08/17/18 100.1 135/70 Mechanica 00:00 (91) l Ventilato r Intake and Output 08/16/18 08/16/18 08/17/18 1515:00 23:00 07:00 IntakeIntake Total 1087.550 ml 627.855 ml 950.2 ml OutputOutput Total 1250 ml 460 ml 760 ml BalanceBalance -162.450 ml 167.855 ml 190.2 ml Exam HEENT exam; supple neck, JVD difficult to see because of short neck. Orally intubated. Patient has fair dentition. No neck masses. Pupils are small bilaterally. Chest exam; diminished breath sounds throughout. S1-S2 audible, no murmurs. Regular rhythm. Abdomen exam; soft, protuberant. Bowel sounds audible. Organomegaly difficult to assess. Extremity exam; no peripheral edema. Pulses 1+. RESORT MANAGER exam; patient is sedated. Results Result Diagram: 08/16/18 0510 08/16/18 0510 Results 24hrs Laboratory Tests Test 08/16/18 09:30 08/16/18 22:18 08/17/18 04:38 Blood Gas Specimen Source Blood arterial Arterial Blood Date Drawn 08/16/2018 9:50:23 AM Arterial Blood pH 7.412 (Temp corrected) Arterial Blood pCO2 75.7 H (Temp correct) Arterial Blood pO2 71.0 L (Temp corrected) Arterial Blood HCO3 47.1 *H Arterial Blood Base Excess 18.7 H Arterial Blood 92.7 L Oxygen Saturation James Test ACCEPTAB Arterial Blood Gas Left Radial Puncture Site Arterial 0.8 Blood Carboxyhemoglobin Arterial Blood 0.2 Methemoglobin Blood Gas A-a O2 127.1 H Differential Oxyhemoglobin Percent 91.8 L Blood Gas Temperature 37.0 Blood Gas Respiration Rate 18.0 Blood Gas Actual 19 Respiration Rate Blood Gas Modality VENT - AC FiO2 40.0 Blood Gas Tidal Volume 500.0 Blood Gas Low PEEP Setting 8.0 Blood Gas Critical Value SHERYL BOTELLO Read Back Blood Gas Notified Whom TM Blood Gas Notified Time 08/16/2018 10:16:05 AM Vancomycin Level Trough 13.0 Phosphorus Level 5.3 H Magnesium Level 2.8 H Medications Medication Current Medications IV Flush (NS 3 ml) 3 ml PER PROTOCOL IV ; Start 08/08/18 at 17:30 Ondansetron HCl (Zofran Inj) 4 mg Q6H PRN IV NAUSEA; Start 08/08/18 at 17:30 Haloperidol (Haldol) 5 mg PRN PRN IM AGGITATED Last administered on 08/16/18 08:32; Admin Dose 5 MG; Start 08/08/18 at 22:00 Propofol 100 ml @ 6.111 mls/ hr Q12H IV Last administered on 08/17/18 05:15; Admin Dose 24.444 MLS/HR; Start 08/09/18 at 05:30 Fentanyl 100 ml @ 2.5 mls/hr TITRATE IV Last administered on 08/16/18 18:12; Admin Dose 7.5 MLS/HR; Start 08/09/18 at 06:30 Enoxaparin Sodium (Lovenox) 40 mg Q12H SC Last administered on 08/16/18 21:21; Admin Dose 40 MG; Start 08/09/18 at 21:00 Famotidine (Pepcid) 20 mg BID GTB Last administered on 08/16/18 21:18; Admin Dose 20 MG; Start 08/12/18 at 09:00 Midazolam HCl 50 ml @ 1 mls/hr TITRATE IV Last administered on 08/17/18 05:16; Admin Dose 5 MLS/HR; Start 08/13/18 at 08:30 Methylprednisolone Sodium Succinate (Solu-Medrol) 40 mg Q6 IV Last administered on 08/17/18 05:14; Admin Dose 40 MG; Start 08/13/18 at 12:00 Scopolamine (Transderm-Scop) 1 patch Q72H TRANSDERM Last administered on 08/16/18 21:18; Admin Dose 1 PATCH; Start 08/13/18 at 20:00 Docusate Sodium (Colace Liquid Cup) 200 mg BID NGT Last administered on 08/16/18 21:18; Admin Dose 200 MG; Start 08/14/18 at 21:00 Cefepime HCl 50 ml @ 100 mls/hr Q12 IVPB Last administered on 08/16/18 21:18; Admin Dose 100 MLS/HR; Start 08/15/18 at 09:30 Vancomycin HCl (Vanco Iv Per Pharmacy) VANCOMYCIN PER PHARMACY PER PROTOCOL XX ; Start 08/15/18 at 09:00 Vancomycin HCl 1.5 gm/Sodium Chloride 250 ml @ 83.333 mls/ hr Q12H IVPB Last administered on 08/17/18 00:17; Admin Dose 83.333 MLS/HR; Start 08/15/18 at 23:00 Polyethylene Glycol (Miralax) 17 gm DAILY GTB ; Start 08/17/18 at 09:00 Naphazoline HCl (Clear Eyes / Naphcon) 2 drop QID BOTH EYES Last administered on 08/16/18at 21:18; Admin Dose 2 DROP; Start 08/16/18 at 18:14 Acetaminophen (Tylenol Liquid) 650 mg Q6H PRN NGT MILD PAIN(1-3)OR ELEVATED TEMP; Start 08/17/18 at 00:57 TAVIA KING Aug 17, 2018 08:26
[2018-08-17] MEDS: CEFEPIME 1GM/50 ML (PMX) 50 ML IVPB SCH ×2 (10:01→21:34)
[2018-08-17] MEDS: POLYETHYLENE GLYCOL 17 GM PACKET GTB SCH (10:01)
[2018-08-17] MEDS: DOCUSATE SODIUM 10 MG/ML (10ML CUP) NGT SCH ×2 (10:01→21:34)
[2018-08-17] MEDS: ENOXAPARIN 40 MG/0.4 ML SYG SC SCH ×2 (10:02→21:35)
[2018-08-17] MEDS: FAMOTIDINE 20 MG TAB GTB SCH ×2 (10:03→21:34)
[2018-08-17] MEDS: NAPHAZOLINE 0.012% 15 ML OPH BOTH EYES SCH ×4 (10:04→21:34)
--- NOTE | 2018-08-17 10:10 | PN ---
Date/Time of Note Date/Time of Note DATE: 08/17/18 TIME: 10:05 Assessment/Plan VTE Prophylaxis Risk score (from Ns)>0 risk: 9 SCD applied (from [facility] [place]): No SCD contraindicated: other Pharmacological prophylaxis: LMWH Lines/Catheters IV Catheter Type (from [facility]): PICC Line Central line still needed: Yes Urinary Cath still in place: Yes Reason Cath still needed: urinary retention Assessment/Plan Hospital Course S: Pt still intubated. Still with persistent fevers. Off Lasix now. O: VS - see below PE: Gen: Morbidly obese man lying in bed intubated and sedated. Neck: Obese, no lymphadenopathy appreciated HEENT: Clear oropharynx, moist mucous membranes Card: Regular rate and rhythm, distant heart sounds Pulm: distant lung sounds. Abd: Morbidly obese, soft, nontender. Ext: Bilateral LE with redness and chronic venous stasis changes. Neuro: unable to fully assess Assessment/Plan: 32M morbidly obese presents with hypercapnic respiratory failure and pneumonia. #Hypoxic and hypercapnic respiratory failure - Likely from obesity (ANDREW), exacerbated by likely pneumonia - Intubated 08/09-has been on broad-spectrum antibiotics. - For now continue IV diuresis, mechanical ventilation via pulmonary recommendations -per their recommendations if the patient continues to be persistently hypercapnic he will likely require tracheostomy -and CTS has been informed about this - Monitor ins and outs, BUN/creatinine levels - Continue NG tube feeds, antibiotics # Pneumonia- Bilateral patchy infiltrates on CXR,WBC 16 on admission-but again with persistent fevers the last 48 hours- on broad-spectrum antibiotics. - Monitor, continue current antibiotics, follow up pulmonary and follow-up ID recommendations. - Unfortunately patient exceeds the weight limit for CT scanner, monitor for now DVT: lovenox GI: Protonix IV Critical care time spent in patient care today equals 45 minutes. Result Diagram: 08/16/18 0510 08/17/18 0438 Results 24hrs Laboratory Tests Test 08/16/18 22:18 08/17/18 04:38 Vancomycin Level Trough 13.0 Sodium Level 148 H Potassium Level 4.3 Chloride Level 98 Carbon Dioxide Level 39 H Anion Gap 11 Blood Urea Nitrogen 52 H Creatinine 0.80 Est Glomerular Filtrat Rate mL/min > 60 Glucose Level 166 Calcium Level 9.3 Phosphorus Level 5.3 H Magnesium Level 2.8 H Triglycerides Level 163 H Cholesterol Level 190 LDL Cholesterol, Calculated 139 HDL Cholesterol 18 L Cholesterol/HDL Ratio 10.5 Exam/Review of Systems Exam Vitals Vital Signs Date Temp Pulse Resp B/P (MAP) Pulse Ox O2 O2 Flow FiO2 Time Delivery Rate 08/17/18 62 20 93 40 09:47 08/17/18 121/64 Mechanica 09:00 (83) l Ventilato r 08/17/18 100.0 08:00 Intake and Output 08/16/18 08/16/18 08/17/18 1515:00 23:00 07:00 IntakeIntake Total 1087.550 ml 627.855 ml 1010.2 ml OutputOutput Total 1250 ml 460 ml 880 ml BalanceBalance -162.450 ml 167.855 ml 130.2 ml Results Results 24hrs Laboratory Tests Test 08/16/18 22:18 08/17/18 04:38 Vancomycin Level Trough 13.0 Sodium Level 148 H Potassium Level 4.3 Chloride Level 98 Carbon Dioxide Level 39 H Anion Gap 11 Blood Urea Nitrogen 52 H Creatinine 0.80 Est Glomerular Filtrat Rate mL/min > 60 Glucose Level 166 Calcium Level 9.3 Phosphorus Level 5.3 H Magnesium Level 2.8 H Triglycerides Level 163 H Cholesterol Level 190 LDL Cholesterol, Calculated 139 HDL Cholesterol 18 L Cholesterol/HDL Ratio 10.5 Medications Medication Current Medications IV Flush (NS 3 ml) 3 ml PER PROTOCOL IV ; Start 08/08/18 at 17:30 Ondansetron HCl (Zofran Inj) 4 mg Q6H PRN IV NAUSEA; Start 08/08/18 at 17:30 Haloperidol (Haldol) 5 mg PRN PRN IM AGGITATED Last administered on 08/16/18at 08:32; Admin Dose 5 MG; Start 08/08/18 at 22:00 Propofol 100 ml @ 6.111 mls/ hr Q12H IV Last administered on 08/17/18at 10:03; Admin Dose 24.444 MLS/HR; Start 08/09/18 at 05:30 Fentanyl 100 ml @ 2.5 mls/hr TITRATE IV Last administered on 08/16/18at 18:12; Admin Dose 7.5 MLS/HR; Start 08/09/18 at 06:30 Enoxaparin Sodium (Lovenox) 40 mg Q12H SC Last administered on 08/17/18 10:02; Admin Dose 40 MG; Start 08/09/18 at 21:00 Famotidine (Pepcid) 20 mg BID GTB Last administered on 08/17/18 10:03; Admin Dose 20 MG; Start 08/12/18 at 09:00 Midazolam HCl 50 ml @ 1 mls/hr TITRATE IV Last administered on 08/17/18 05:16; Admin Dose 5 MLS/HR; Start 08/13/18 at 08:30 Methylprednisolone Sodium Succinate (Solu-Medrol) 40 mg Q6 IV Last administered on 08/17/18 05:14; Admin Dose 40 MG; Start 08/13/18 at 12:00 Scopolamine (Transderm-Scop) 1 patch Q72H TRANSDERM Last administered on 08/16/18 21:18; Admin Dose 1 PATCH; Start 08/13/18 at 20:00 Docusate Sodium (Colace Liquid Cup) 200 mg BID NGT Last administered on 08/17/18 10:01; Admin Dose 200 MG; Start 08/14/18 at 21:00 Cefepime HCl 50 ml @ 100 mls/hr Q12 IVPB Last administered on 08/17/18 10:01; Admin Dose 100 MLS/HR; Start 08/15/18 at 09:30 Vancomycin HCl (Vanco Iv Per Pharmacy) VANCOMYCIN PER PHARMACY PER PROTOCOL XX ; Start 08/15/18 at 09:00 Vancomycin HCl 1.5 gm/Sodium Chloride 250 ml @ 83.333 mls/ hr Q12H IVPB Last administered on 08/17/18 00:17; Admin Dose 83.333 MLS/HR; Start 08/15/18 at 23:00 Polyethylene Glycol (Miralax) 17 gm DAILY GTB Last administered on 08/17/18 10:01; Admin Dose 17 GM; Start 08/17/18 at 09:00 Naphazoline HCl (Clear Eyes / Naphcon) 2 drop QID BOTH EYES Last administered on 08/17/18 10:04; Admin Dose 2 DROP; Start 08/16/18 at 18:14 Acetaminophen (Tylenol Liquid) 650 mg Q6H PRN NGT MILD PAIN(1-3)OR ELEVATED TEMP; Start 08/17/18 at 00:57 RC GO 31, 2019 10:10
--- NOTE | 2018-08-17 11:48 | CONS ---
DATE OF ADMISSION: 08/08/2018 DATE OF CONSULTATION: 08/17/2018 TYPE OF CONSULTATION: Cardiology. REASON FOR CONSULTATION: Evaluation for possible tracheostomy. HISTORY OF PRESENT ILLNESS: This is a morbidly obese 32-year-old male who was admitted with a histor y of pulmonary hypertension and sleep apnea, had to be intubated, unable to come off the ventilator s econdary to multiple medical problems including obesity. The patient has been intubated now for abou t 10 days. PAST MEDICAL HISTORY: Morbid obesity. PAST SURGICAL HISTORY: None. ALLERGIES: None. SOCIAL HISTORY: No smoking, drinking or drug use. MEDICATIONS: List reviewed. PHYSICAL EXAMINATION: VITAL SIGNS: Patient is in supine position, intubated, FIO2 40%, saturations 93% to 95%. CARDIOVASCULAR: Regular rate and rhythm. LUNGS: Clear. ABDOMEN: Soft. EXTREMITIES: Warm. LABORATORY VALUES: Hemoglobin 11.2, white count 10.5, platelet count 274. Normal coagulation factor s and a creatinine of 0.85. IMPRESSION: Respiratory failure, unable to come off the ventilator. RECOMMENDATIONS: We will proceed with a tracheostomy; however, this patient will need extra-long tra cheostomy secondary to his body habitus, we will proceed with surgery when the tube is available. Dictated By: TIMMY DALAL MD FM/NTS Conf#: [id number] DID#: [id number] CC: ELIANE PEARSON MD;*EndCC*
[2018-08-17] MEDS: FENTAnyl (DRIP) 1000 mcg/100mL 100 ML IV SCH (12:56)
--- NOTE | 2018-08-17 13:39 | CONS ---
Assessment/Plan Assessment/Plan Hospital Course (Demo Recall) No acute events patient remains intubated he is in no distress still with low- grade fevers. T-max 100.1 WBC 10.5 H&H 11.2 and 33.5 platelets 274 neutrophils 76.6 BUN 48 creatinine 0.85 Sputum culture growing gram-negative rods Indwelling: Endotracheal tube NG tube Santiago catheter, PICC line Antimicrobials: Vancomycin, cefepime: Physical examination: This is a morbidly obese well-developed middle-aged man who is intubated sedated in no distress. Head atraumatic normocephalic, bucal mucosa dry, neck is obese. Chest rise symmetrical breath sounds diminished. Heart: S1-S2. Abdomen obese distended bowel sounds hypoactive. Extremities with edema Assessment: 1. Acute hypoxemic respiratory failure/ pneumonia 2. Morbid obesity 3. Sleep apnea with hypoventilation syndrome 4. Leukocytosis, patient is on steroids Plan: Clinically unchanged, continue antibiotics, follow sputum culture, vent management per pulmonary recommendations DEBORAH RN Consultation Date/Type/Reason Admit Date/Time Aug 08, 2018 at 17:18 Initial Consult Date 08/09/18 Type of Consult ID Date/Time of Note DATE: 08/17/18 TIME: 13:37 Exam/Review of Systems Exam Vitals Vital Signs Date Temp Pulse Resp B/P (MAP) Pulse Ox O2 O2 Flow FiO2 Time Delivery Rate 08/17/18 64 21 118/60 90 Mechanica 13:00 (79) l Ventilato r 08/17/18 35 12:49 08/17/18 100.0 12:00 Intake and Output 08/16/18 08/16/18 08/17/18 1414:59 22:59 06:59 IntakeIntake Total 867.106 ml 816.899 ml 1047.1 ml OutputOutput Total 1250 ml 360 ml 860 ml BalanceBalance -382.894 ml 456.899 ml 187.1 ml Results Result Diagram: 08/17/18 1045 08/17/18 1045 Results 24hrs Laboratory Tests Test 08/16/18 22:18 08/17/18 04:38 08/17/18 10:45 Vancomycin Level Trough 13.0 Sodium Level 148 H 148 H Potassium Level 4.3 4.3 Chloride Level 98 98 Carbon Dioxide Level 39 H 39 H Anion Gap 11 11 Blood Urea Nitrogen 52 H 48 H Creatinine 0.80 0.85 Est Glomerular Filtrat Rate mL/min > 60 > 60 Glucose Level 166 181 Calcium Level 9.3 9.5 Phosphorus Level 5.3 H Magnesium Level 2.8 H Triglycerides Level 163 H Cholesterol Level 190 LDL Cholesterol, Calculated 139 HDL Cholesterol 18 L Cholesterol/HDL Ratio 10.5 White Blood Count 10.5 Red Blood Count 5.02 Hemoglobin 11.2 L Hematocrit 43.5 Mean Corpuscular Volume 86.7 Mean Corpuscular Hemoglobin 22.3 L Mean Corpuscular Hemoglobin Concent 25.7 L Red Cell Distribution Width 16.8 H Platelet Count 274 Mean Platelet Volume 9.1 Immature Granulocytes % 0.700 H Neutrophils % 76.6 Lymphocytes % 10.1 L Monocytes % 12.5 H Eosinophils % 0.0 Basophils % 0.1 Nucleated Red Blood Cells % 0.0 Immature Granulocytes # 0.070 H Neutrophils # 8.1 H Lymphocytes # 1.1 Monocytes # 1.3 H Eosinophils # 0.0 Basophils # 0.0 Nucleated Red Blood Cells # 0.0 Medications Medication Current Medications IV Flush (NS 3 ml) 3 ml PER PROTOCOL IV ; Start 08/08/18 at 17:30 Ondansetron HCl (Zofran Inj) 4 mg Q6H PRN IV NAUSEA; Start 08/08/18 at 17:30 Haloperidol (Haldol) 5 mg PRN PRN IM AGGITATED Last administered on 08/16/18 08:32; Admin Dose 5 MG; Start 08/08/18 at 22:00 Propofol 100 ml @ 6.111 mls/ hr Q12H IV Last administered on 08/17/18 10:03; Admin Dose 24.444 MLS/HR; Start 08/09/18 at 05:30 Fentanyl 100 ml @ 2.5 mls/hr TITRATE IV Last administered on 08/17/18 12:56; Admin Dose 5 MLS/HR; Start 08/09/18 at 06:30 Enoxaparin Sodium (Lovenox) 40 mg Q12H SC Last administered on 08/17/18 10:02; Admin Dose 40 MG; Start 08/09/18 at 21:00 Famotidine (Pepcid) 20 mg BID GTB Last administered on 08/17/18 10:03; Admin Dose 20 MG; Start 08/12/18 at 09:00 Midazolam HCl 50 ml @ 1 mls/hr TITRATE IV Last administered on 08/17/18 05:16; Admin Dose 5 MLS/HR; Start 08/13/18 at 08:30 Methylprednisolone Sodium Succinate (Solu-Medrol) 40 mg Q6 IV Last administered on 08/17/18 12:44; Admin Dose 40 MG; Start 08/13/18 at 12:00 Scopolamine (Transderm-Scop) 1 patch Q72H TRANSDERM Last administered on 08/16/18 21:18; Admin Dose 1 PATCH; Start 08/13/18 at 20:00 Docusate Sodium (Colace Liquid Cup) 200 mg BID NGT Last administered on 08/17/18 10:01; Admin Dose 200 MG; Start 08/14/18 at 21:00 Cefepime HCl 50 ml @ 100 mls/hr Q12 IVPB Last administered on 08/17/18 10:01; Admin Dose 100 MLS/HR; Start 08/15/18 at 09:30 Vancomycin HCl (Vanco Iv Per Pharmacy) VANCOMYCIN PER PHARMACY PER PROTOCOL XX ; Start 08/15/18 at 09:00 Vancomycin HCl 1.5 gm/Sodium Chloride 250 ml @ 83.333 mls/ hr Q12H IVPB Last administered on 08/17/18 12:44; Admin Dose 83.333 MLS/HR; Start 08/15/18 at 23:00 Polyethylene Glycol (Miralax) 17 gm DAILY GTB Last administered on 08/17/18 10:01; Admin Dose 17 GM; Start 08/17/18 at 09:00 Naphazoline HCl (Clear Eyes / Naphcon) 2 drop QID BOTH EYES Last administered on 08/17/18 12:45; Admin Dose 2 DROP; Start 08/16/18 at 18:14 Acetaminophen (Tylenol Liquid) 650 mg Q6H PRN NGT MILD PAIN(1-3)OR ELEVATED TEMP; Start 08/17/18 at 00:57 JOCELYN VILLALTA NP Aug 17, 2018 13:39
[2018-08-17] MEDS: ACETAMINOPHEN 650MG/20.3ML CUP NGT PRN (22:08)
[2018-08-18] VITALS (40 sets, daily range): BP systolic 108–125; BP diastolic 45–72; PULSE 59–99; RESP 19–30
[2018-08-18] MEDS: MIDAZOLAM (DRIP) 50 mg/50 mL 50 ML IV SCH ×2 (00:03→13:45)
[2018-08-18] MEDS: METHYLPREDNISOLONE 40 MG INJ IV SCH ×5 (00:03→23:21)
[2018-08-18] MEDS: PROPOFOL 100 ML IV SCH ×7 (01:38→20:21)
[2018-08-18] MEDS: FENTAnyl (DRIP) 1000 mcg/100mL 100 ML IV SCH (07:22)
--- NOTE | 2018-08-18 08:20 | CONS ---
Assessment/Plan Assessment/Plan Assessment/Plan (Daily) Ventilator setting; AC of 18, tidal volume 500, PEEP of 8, 35% FiO2. Patient is currently on fentanyl 50 mics per hour, Versed 5 mg/h. Propofol 30 mics per kilogram per minute. Assessment recommendations; 1. Patient admitted for severe CHF leading to respiratory failure. 2. Underlying morbid obesity with chronic type II respiratory failure. 3. Interstitial lung disease, possibly sarcoidosis. Patient started on empiric systemic steroid treatment. Patient's body habitus not permitting CT evaluation of the chest. 4. Mild hypernatremia. 5. Mild anemia. Continue current supportive care. We will obtain ABG. Increase free water via NG tube to 250 mL every 6 hours from 100 mL every 6 hours for correction of hypernatremia. Patient scheduled for tracheostomy. I did have a detailed dis cussion with the patient's mother at bedside and answered all her questions. Consultation Date/Type/Reason Admit Date/Time Aug 08, 2018 at 17:18 Initial Consult Date 08/09/18 Type of Consult Pulmonary/critical care Consult dictated by mistake on last admission chart review. Please refer to last admission for consult note. Date/Time of Note DATE: 08/18/18 TIME: 08:16 24 HR Interval Summary Free Text/Dictation Patient's condition is critical. Patient exhibiting significant frothy secretions indicative of underlying ongoing pulmonary edema. General exam; young male, morbidly obese, orally intubated, sedated, currently in no distress. Exam/Review of Systems Exam Vitals Vital Signs Date Temp Pulse Resp B/P (MAP) Pulse Ox O2 O2 Flow FiO2 Time Delivery Rate 08/18/18 79 23 95 35 07:50 08/18/18 118/63 Mechanica 06:00 (81) l Ventilato r 08/18/18 100.3 04:00 Intake and Output 08/17/18 08/17/18 08/18/18 1515:00 23:00 07:00 IntakeIntake Total 805.52 ml 829.76 ml 978 ml OutputOutput Total 780 ml 830 ml 600 ml BalanceBalance 25.52 ml -0.24 ml 378 ml Exam HEENT exam; supple neck, JVD difficult to see because of short neck.. No lympha denopathy. Midline trachea. No thyromegaly. Orally intubated. Pupils are small bilaterally. Chest exam; diminished breath sounds throughout. S1-S2 audible, no murmurs. Regular rhythm. Abdomen exam; soft, protuberant. Bowel sounds audible. Organomegaly difficult to assess because of body habitus. Extremity exam; no edema or clubbing. BLOOD OR BLOOD BANK TECHNICIAN exam; patient is sedated. Results Result Diagram: 08/18/18 0500 08/18/18 0500 Results 24hrs Laboratory Tests Test 08/17/18 10:45 08/18/18 05:00 White Blood Count 10.5 11.7 H Red Blood Count 5.02 5.34 Hemoglobin 11.2 L 11.9 L Hematocrit 43.5 45.9 Mean Corpuscular Volume 86.7 86.0 Mean Corpuscular Hemoglobin 22.3 L 22.3 L Mean Corpuscular Hemoglobin Concent 25.7 L 25.9 L Red Cell Distribution Width 16.8 H 16.6 H Platelet Count 274 310 Mean Platelet Volume 9.1 9.8 Immature Granulocytes % 0.700 H 0.700 H Neutrophils % 76.6 78.9 H Lymphocytes % 10.1 L 10.2 L Monocytes % 12.5 H 10.2 Eosinophils % 0.0 0.0 Basophils % 0.1 0.0 Nucleated Red Blood Cells % 0.0 0.0 Immature Granulocytes # 0.070 H 0.080 H Neutrophils # 8.1 H 9.2 H Lymphocytes # 1.1 1.2 Monocytes # 1.3 H 1.2 H Eosinophils # 0.0 0.0 Basophils # 0.0 0.0 Nucleated Red Blood Cells # 0.0 0.0 Sodium Level 148 H 151 H Potassium Level 4.3 4.4 Chloride Level 98 102 Carbon Dioxide Level 39 H 37 H Anion Gap 11 12 Blood Urea Nitrogen 48 H 49 H Creatinine 0.85 0.79 Est Glomerular Filtrat Rate mL/min > 60 > 60 Glucose Level 181 150 Calcium Level 9.5 9.6 Phosphorus Level 4.9 Magnesium Level 2.6 H Medications Medication Current Medications IV Flush (NS 3 ml) 3 ml PER PROTOCOL IV ; Start 08/08/18 at 17:30 Ondansetron HCl (Zofran Inj) 4 mg Q6H PRN IV NAUSEA; Start 08/08/18 at 17:30 Haloperidol (Haldol) 5 mg PRN PRN IM AGGITATED Last administered on 08/16/18 08:32; Admin Dose 5 MG; Start 08/08/18 at 22:00 Propofol 100 ml @ 6.111 mls/ hr Q12H IV Last administered on 08/18/18 07:20; Admin Dose 36.666 MLS/HR; Start 08/09/18 at 05:30 Fentanyl 100 ml @ 2.5 mls/hr TITRATE IV Last administered on 08/18/18 07:22; Admin Dose 5 MLS/HR; Start 08/09/18 at 06:30 Enoxaparin Sodium (Lovenox) 40 mg Q12H SC Last administered on 08/17/18 21:35; Admin Dose 40 MG; Start 08/09/18 at 21:00 Famotidine (Pepcid) 20 mg BID GTB Last administered on 08/17/18 21:34; Admin Dose 20 MG; Start 08/12/18 at 09:00 Midazolam HCl 50 ml @ 1 mls/hr TITRATE IV Last administered on 08/18/18 00:03; Admin Dose 5 MLS/HR; Start 08/13/18 at 08:30 Methylprednisolone Sodium Succinate (Solu-Medrol) 40 mg Q6 IV Last administered on 08/18/18 05:01; Admin Dose 40 MG; Start 08/13/18 at 12:00 Scopolamine (Transderm-Scop) 1 patch Q72H TRANSDERM Last administered on 08/16/18 21:18; Admin Dose 1 PATCH; Start 08/13/18 at 20:00 Docusate Sodium (Colace Liquid Cup) 200 mg BID NGT Last administered on 08/17/18 21:34; Admin Dose 200 MG; Start 08/14/18 at 21:00 Cefepime HCl 50 ml @ 100 mls/hr Q12 IVPB Last administered on 08/17/18 21:34; Admin Dose 100 MLS/HR; Start 08/15/18 at 09:30 Vancomycin HCl (Vanco Iv Per Pharmacy) VANCOMYCIN PER PHARMACY PER PROTOCOL XX ; Start 08/15/18 at 09:00 Vancomycin HCl 1.5 gm/Sodium Chloride 250 ml @ 83.333 mls/ hr Q12H IVPB Last administered on 08/17/18 22:07; Admin Dose 83.333 MLS/HR; Start 08/15/18 at 23:00 Polyethylene Glycol (Miralax) 17 gm DAILY GTB Last administered on 08/17/18at 10:01; Admin Dose 17 GM; Start 08/17/18 at 09:00 Naphazoline HCl (Clear Eyes / Naphcon) 2 drop QID BOTH EYES Last administered on 08/17/18at 21:34; Admin Dose 2 DROP; Start 08/16/18 at 18:14 Acetaminophen (Tylenol Liquid) 650 mg Q6H PRN NGT MILD PAIN(1-3)OR ELEVATED TEMP Last administered on 08/17/18at 22:08; Admin Dose 650 MG; Start 08/17/18 at 00:57 TAVIA KING Aug 18, 2018 08:20
--- NOTE | 2018-08-18 09:44 | PN ---
Date/Time of Note Date/Time of Note DATE: 08/18/18 TIME: 09:32 Assessment/Plan VTE Prophylaxis Risk score (from Ns)>0 risk: 10 SCD applied (from Ns): No SCD contraindicated: other Pharmacological prophylaxis: LMWH Lines/Catheters IV C[facility]ter Type (from [facility]): PICC Line Central line still needed: Yes Urinary Cath still in place: Yes Reason Cath still needed: urinary retention Assessment/Plan Hospital Course S: Pt still intubated. Still with persistent fevers. Tentatively scheduled for tracheostomy placement when appropriate equipment arrives. Tolerating tube feeds. O: VS - see below PE: Gen: Morbidly obese man lying in bed intubated and sedated. Neck: Obese, no lymphadenopathy appreciated HEENT: Clear oropharynx, moist mucous membranes Card: Regular rate and rhythm, distant heart sounds Pulm: distant lung sounds. Abd: Morbidly obese, soft, nontender. Ext: Bilateral LE with redness and chronic venous stasis changes. Neuro: unable to fully assess Assessment/Plan: 32M morbidly obese presents with hypercapnic respiratory failure and pneumonia. #Hypoxic and hypercapnic respiratory failure - Likely from obesity (ANDREW), exacerbated by likely pneumonia - Intubated 08/09-has been on broad-spectrum antibiotics. - For now continue IV diuresis, mechanical ventilation via pulmonary recommendations -per their recommendations if the patient continues to be persistently hypercapnic he will likely require tracheostomy -and CTS is scheduled to do this now when the equipment arrives. - Monitor ins and outs, BUN/creatinine levels - Continue NG tube feeds, antibiotics # Pneumonia- Bilateral patchy infiltrates on CXR,WBC 16 on admission-but again with persistent fevers the last 48 hours- on broad-spectrum antibiotics. - Monitor, continue current antibiotics, follow up pulmonary and follow-up ID recommendations. - Unfortunately patient exceeds the weight limit for CT scanner, monitor for now #Hypernatremia: Sodium elevated today at 151 -Continue free water as ordered, will cautiously add D5W IV fluids at 75 cc an hour for 12 hours, recheck BMP in the a.m. DVT: lovenox GI: Protonix IV Critical care time spent in patient care today equals 45 minutes. Result Diagram: 08/18/18 0500 08/18/18 0500 Results 24hrs Laboratory Tests Test 08/17/18 10:45 08/18/18 05:00 08/18/18 08:15 White Blood Count 10.5 11.7 H Red Blood Count 5.02 5.34 Hemoglobin 11.2 L 11.9 L Hematocrit 43.5 45.9 Mean Corpuscular Volume 86.7 86.0 Mean Corpuscular Hemoglobin 22.3 L 22.3 L Mean Corpuscular 25.7 L 25.9 L Hemoglobin Concent Red Cell Distribution Width 16.8 H 16.6 H Platelet Count 274 310 Mean Platelet Volume 9.1 9.8 Immature Granulocytes % 0.700 H 0.700 H Neutrophils % 76.6 78.9 H Lymphocytes % 10.1 L 10.2 L Monocytes % 12.5 H 10.2 Eosinophils % 0.0 0.0 Basophils % 0.1 0.0 Nucleated Red Blood Cells % 0.0 0.0 Immature Granulocytes # 0.070 H 0.080 H Neutrophils # 8.1 H 9.2 H Lymphocytes # 1.1 1.2 Monocytes # 1.3 H 1.2 H Eosinophils # 0.0 0.0 Basophils # 0.0 0.0 Nucleated Red Blood Cells # 0.0 0.0 Sodium Level 148 H 151 H Potassium Level 4.3 4.4 Chloride Level 98 102 Carbon Dioxide Level 39 H 37 H Anion Gap 11 12 Blood Urea Nitrogen 48 H 49 H Creatinine 0.85 0.79 Est Glomerular Filtrat > 60 > 60 Rate mL/min Glucose Level 181 150 Calcium Level 9.5 9.6 Phosphorus Level 4.9 Magnesium Level 2.6 H Blood Gas Specimen Source Blood arterial Arterial Blood Date Drawn 08/18/2018 8:32:38 AM Arterial Blood pH 7.270 *L (Temp corrected) Arterial Blood pCO2 96.1 *H (Temp correct) Arterial Blood pO2 38.4 *L (Temp corrected) Arterial Blood HCO3 43.1 *H Arterial Blood Base Excess 11.8 H Arterial Blood 60.2 L Oxygen Saturation James Test ACCEPTAB Arterial Blood Gas Right Radial Puncture Site Arterial 1.2 Blood Carboxyhemoglobin Arterial Blood Methemoglobin 0.2 Blood Gas A-a O2 Differential 99.4 H Oxyhemoglobin Percent 59.4 L Blood Gas Temperature 37.0 Blood Gas Actual 25 Respiration Rate Blood Gas Modality VENT - CPAP FiO2 35.0 Blood Gas Low PEEP Setting 8.0 Blood Gas Pressure Support 10 Blood Gas Critical Value M.BOSCH RN Read Back Blood Gas Notified Whom TM Blood Gas Notified Time 08/18/2018 8:48:49 AM Exam/Review of Systems Exam Vitals Vital Signs Date Temp Pulse Resp B/P (MAP) Pulse Ox O2 O2 Flow FiO2 Time Delivery Rate 08/18/18 91 29 92 35 09:23 08/18/18 118/63 Mechanica 06:00 (81) l Ventilato r 08/18/18 100.3 04:00 Intake and Output 08/17/18 08/17/18 08/18/18 1515:00 23:00 07:00 IntakeIntake Total 805.52 ml 829.76 ml 978 ml OutputOutput Total 780 ml 830 ml 600 ml BalanceBalance 25.52 ml -0.24 ml 378 ml Results Results 24hrs Laboratory Tests Test 08/17/18 10:45 08/18/18 05:00 08/18/18 08:15 White Blood Count 10.5 11.7 H Red Blood Count 5.02 5.34 Hemoglobin 11.2 L 11.9 L Hematocrit 43.5 45.9 Mean Corpuscular Volume 86.7 86.0 Mean Corpuscular Hemoglobin 22.3 L 22.3 L Mean Corpuscular 25.7 L 25.9 L Hemoglobin Concent Red Cell Distribution Width 16.8 H 16.6 H Platelet Count 274 310 Mean Platelet Volume 9.1 9.8 Immature Granulocytes % 0.700 H 0.700 H Neutrophils % 76.6 78.9 H Lymphocytes % 10.1 L 10.2 L Monocytes % 12.5 H 10.2 Eosinophils % 0.0 0.0 Basophils % 0.1 0.0 Nucleated Red Blood Cells % 0.0 0.0 Immature Granulocytes # 0.070 H 0.080 H Neutrophils # 8.1 H 9.2 H Lymphocytes # 1.1 1.2 Monocytes # 1.3 H 1.2 H Eosinophils # 0.0 0.0 Basophils # 0.0 0.0 Nucleated Red Blood Cells # 0.0 0.0 Sodium Level 148 H 151 H Potassium Level 4.3 4.4 Chloride Level 98 102 Carbon Dioxide Level 39 H 37 H Anion Gap 11 12 Blood Urea Nitrogen 48 H 49 H Creatinine 0.85 0.79 Est Glomerular Filtrat > 60 > 60 Rate mL/min Glucose Level 181 150 Calcium Level 9.5 9.6 Phosphorus Level 4.9 Magnesium Level 2.6 H Blood Gas Specimen Source Blood arterial Arterial Blood Date Drawn 08/18/2018 8:32:38 AM Arterial Blood pH 7.270 *L (Temp corrected) Arterial Blood pCO2 96.1 *H (Temp correct) Arterial Blood pO2 38.4 *L (Temp corrected) Arterial Blood HCO3 43.1 *H Arterial Blood Base Excess 11.8 H Arterial Blood 60.2 L Oxygen Saturation James Test ACCEPTAB Arterial Blood Gas Right Radial Puncture Site Arterial 1.2 Blood Carboxyhemoglobin Arterial Blood Methemoglobin 0.2 Blood Gas A-a O2 Differential 99.4 H Oxyhemoglobin Percent 59.4 L Blood Gas Temperature 37.0 Blood Gas Actual 25 Respiration Rate Blood Gas Modality VENT - CPAP FiO2 35.0 Blood Gas Low PEEP Setting 8.0 Blood Gas Pressure Support 10 Blood Gas Critical Value ANGELICA BOTELLO Read Back Blood Gas Notified Whom TM Blood Gas Notified Time 08/18/2018 8:48:49 AM Medications Medication Current Medications IV Flush (NS 3 ml) 3 ml PER PROTOCOL IV ; Start 08/08/18 at 17:30 Ondansetron HCl (Zofran Inj) 4 mg Q6H PRN IV NAUSEA; Start 08/08/18 at 17:30 Haloperidol (Haldol) 5 mg PRN PRN IM AGGITATED Last administered on 08/16/18 08:32; Admin Dose 5 MG; Start 08/08/18 at 22:00 Propofol 100 ml @ 6.111 mls/ hr Q12H IV Last administered on 08/18/18 07:20; Admin Dose 36.666 MLS/HR; Start 08/09/18 at 05:30 Fentanyl 100 ml @ 2.5 mls/hr TITRATE IV Last administered on 08/18/18 07:22; Admin Dose 5 MLS/HR; Start 08/09/18 at 06:30 Enoxaparin Sodium (Lovenox) 40 mg Q12H SC Last administered on 08/17/18at 21:35; Admin Dose 40 MG; Start 08/09/18 at 21:00 Famotidine (Pepcid) 20 mg BID GTB Last administered on 08/17/18 21:34; Admin Dose 20 MG; Start 08/12/18 at 09:00 Midazolam HCl 50 ml @ 1 mls/hr TITRATE IV Last administered on 08/18/18 00:03; Admin Dose 5 MLS/HR; Start 08/13/18 at 08:30 Methylprednisolone Sodium Succinate (Solu-Medrol) 40 mg Q6 IV Last administered on 08/18/18 05:01; Admin Dose 40 MG; Start 08/13/18 at 12:00 Scopolamine (Transderm-Scop) 1 patch Q72H TRANSDERM Last administered on 08/16/18 21:18; Admin Dose 1 PATCH; Start 08/13/18 at 20:00 Docusate Sodium (Colace Liquid Cup) 200 mg BID NGT Last administered on 08/17/18 21:34; Admin Dose 200 MG; Start 08/14/18 at 21:00 Cefepime HCl 50 ml @ 100 mls/hr Q12 IVPB Last administered on 08/17/18 21:34; Admin Dose 100 MLS/HR; Start 08/15/18 at 09:30 Vancomycin HCl (Vanco Iv Per Pharmacy) VANCOMYCIN PER PHARMACY PER PROTOCOL XX ; Start 08/15/18 at 09:00 Vancomycin HCl 1.5 gm/Sodium Chloride 250 ml @ 83.333 mls/ hr Q12H IVPB Last administered on 08/17/18 22:07; Admin Dose 83.333 MLS/HR; Start 08/15/18 at 23:00 Polyethylene Glycol (Miralax) 17 gm DAILY GTB Last administered on 08/17/18 10:01; Admin Dose 17 GM; Start 08/17/18 at 09:00 Naphazoline HCl (Clear Eyes / Naphcon) 2 drop QID BOTH EYES Last administered on 08/17/18 21:34; Admin Dose 2 DROP; Start 08/16/18 at 18:14 Acetaminophen (Tylenol Liquid) 650 mg Q6H PRN NGT MILD PAIN(1-3)OR ELEVATED TEMP Last administered on 08/17/18 22:08; Admin Dose 650 MG; Start 08/17/18 at 00:57 RC GO Aug 18, 2018 09:42
[2018-08-18] MEDS ORDERED: DEXTROSE 5% 1,000 ML IV SCH (10:00)
[2018-08-18] MEDS: DOCUSATE SODIUM 10 MG/ML (10ML CUP) NGT SCH ×2 (10:22→20:21)
[2018-08-18] MEDS: FAMOTIDINE 20 MG TAB GTB SCH ×2 (10:22→20:22)
[2018-08-18] MEDS: CEFEPIME 1GM/50 ML (PMX) 50 ML IVPB SCH (10:23)
[2018-08-18] MEDS: POLYETHYLENE GLYCOL 17 GM PACKET GTB SCH (10:23)
[2018-08-18] MEDS: ENOXAPARIN 40 MG/0.4 ML SYG SC SCH ×2 (10:35→20:32)
[2018-08-18] MEDS: NAPHAZOLINE 0.012% 15 ML OPH BOTH EYES SCH ×4 (11:23→20:22)
[2018-08-18] MEDS: VANCOMYCIN HCL 1.5 GM in SOD CHLORIDE 0.9% 250 ML IVPB SCH (11:58)
[2018-08-18] MEDS: ACETAMINOPHEN 650MG/20.3ML CUP NGT PRN (12:13)
--- NOTE | 2018-08-18 14:03 | CONS ---
Assessment/Plan Assessment/Plan Hospital Course (Demo Recall) Patient remains intubated, on David-Synephrine drip with a T-max of 100.5. WBC 17.6 platelets 39 BUN 60 creatinine 1.32 Sputum culture growing multidrug-resistant Acinetobacter baumanii Indwelling: Endotracheal tube NG tube Santiago catheter, PICC line Antimicrobials: Vancomycin, cefepime: Physical examination: This is a morbidly obese well-developed middle-aged man who is intubated sedated in no distress. Head atraumatic normocephalic, bucal mucosa dry, neck is obese. Chest rise symmetrical breath sounds diminished. Heart: S1-S2. Abdomen obese distended bowel sounds hypoactive. Extremities with edema Assessment: 1. Acute hypoxemic respiratory failure/ pneumonia 2. Morbid obesity 3. Sleep apnea with hypoventilation syndrome 4. Leukocytosis, patient is on steroids Plan: Clinically unchanged, will repeat bld cx, change abx to Colistin and Zyvox DW RN Consultation Date/Type/Reason Admit Date/Time Aug 08, 2018 at 17:18 Initial Consult Date 08/09/18 Type of Consult ID Date/Time of Note DATE: 08/18/18 TIME: 14:02 Exam/Review of Systems Exam Vitals Vital Signs Date Temp Pulse Resp B/P (MAP) Pulse Ox O2 O2 Flow FiO2 Time Delivery Rate 08/18/18 81 23 94 35 13:29 08/18/18 101.7 12:50 08/18/18 117/63 Mechanica 11:00 (81) l Ventilato r Intake and Output 08/17/18 08/17/18 08/18/18 1515:00 23:00 07:00 IntakeIntake Total 805.52 ml 829.76 ml 1084.666 ml OutputOutput Total 780 ml 830 ml 600 ml BalanceBalance 25.52 ml -0.24 ml 484.666 ml Results Result Diagram: 08/18/18 0500 08/18/18 0500 Results 24hrs Laboratory Tests Test 08/18/18 05:00 08/18/18 08:15 White Blood Count 11.7 H Red Blood Count 5.34 Hemoglobin 11.9 L Hematocrit 45.9 Mean Corpuscular Volume 86.0 Mean Corpuscular Hemoglobin 22.3 L Mean Corpuscular Hemoglobin Concent 25.9 L Red Cell Distribution Width 16.6 H Platelet Count 310 Mean Platelet Volume 9.8 Immature Granulocytes % 0.700 H Neutrophils % 78.9 H Lymphocytes % 10.2 L Monocytes % 10.2 Eosinophils % 0.0 Basophils % 0.0 Nucleated Red Blood Cells % 0.0 Immature Granulocytes # 0.080 H Neutrophils # 9.2 H Lymphocytes # 1.2 Monocytes # 1.2 H Eosinophils # 0.0 Basophils # 0.0 Nucleated Red Blood Cells # 0.0 Sodium Level 151 H Potassium Level 4.4 Chloride Level 102 Carbon Dioxide Level 37 H Anion Gap 12 Blood Urea Nitrogen 49 H Creatinine 0.79 Est Glomerular Filtrat Rate mL/min > 60 Glucose Level 150 Calcium Level 9.6 Phosphorus Level 4.9 Magnesium Level 2.6 H Blood Gas Specimen Source Blood arterial Arterial Blood Date Drawn 08/18/2018 8:32:38 AM Arterial Blood pH (Temp corrected) 7.270 *L Arterial Blood pCO2 (Temp correct) 96.1 *H Arterial Blood pO2 (Temp corrected) 38.4 *L Arterial Blood HCO3 43.1 *H Arterial Blood Base Excess 11.8 H Arterial Blood Oxygen Saturation 60.2 L James Test ACCEPTAB Arterial Blood Gas Puncture Site Right Radial Arterial Blood Carboxyhemoglobin 1.2 Arterial Blood Methemoglobin 0.2 Blood Gas A-a O2 Differential 99.4 H Oxyhemoglobin Percent 59.4 L Blood Gas Temperature 37.0 Blood Gas Actual Respiration Rate 25 Blood Gas Modality VENT - CPAP FiO2 35.0 Blood Gas Low PEEP Setting 8.0 Blood Gas Pressure Support 10 Blood Gas Critical Value Read Back ANGELICA BOTELLO Blood Gas Notified Whom TM Blood Gas Notified Time 08/18/2018 8:48:49 AM Medications Medication Current Medications IV Flush (NS 3 ml) 3 ml PER PROTOCOL IV ; Start 08/08/18 at 17:30 Ondansetron HCl (Zofran Inj) 4 mg Q6H PRN IV NAUSEA; Start 08/08/18 at 17:30 Haloperidol (Haldol) 5 mg PRN PRN IM AGGITATED Last administered on 08/16/18at 08:32; Admin Dose 5 MG; Start 08/08/18 at 22:00 Propofol 100 ml @ 6.111 mls/ hr Q12H IV Last administered on 08/18/18at 13:45; Admin Dose 36.666 MLS/HR; Start 08/09/18 at 05:30 Fentanyl 100 ml @ 2.5 mls/hr TITRATE IV Last administered on 08/18/18 07:22; Admin Dose 5 MLS/HR; Start 08/09/18 at 06:30 Enoxaparin Sodium (Lovenox) 40 mg Q12H SC Last administered on 08/18/18 10:35; Admin Dose 40 MG; Start 08/09/18 at 21:00 Famotidine (Pepcid) 20 mg BID GTB Last administered on 08/18/18 10:22; Admin Do se 20 MG; Start 08/12/18 at 09:00 Midazolam HCl 50 ml @ 1 mls/hr TITRATE IV Last administered on 08/18/18 13:45; Admin Dose 5 MLS/HR; Start 08/13/18 at 08:30 Methylprednisolone Sodium Succinate (Solu-Medrol) 40 mg Q6 IV Last administered on 08/18/18 12:13; Admin Dose 40 MG; Start 08/13/18 at 12:00 Scopolamine (Transderm-Scop) 1 patch Q72H TRANSDERM Last administered on 08/16/18 21:18; Admin Dose 1 PATCH; Start 08/13/18 at 20:00 Docusate Sodium (Colace Liquid Cup) 200 mg BID NGT Last administered on 08/18/18 10:22; Admin Dose 200 MG; Start 08/14/18 at 21:00 Cefepime HCl 50 ml @ 100 mls/hr Q12 IVPB Last administered on 08/18/18 10:23; Admin Dose 100 MLS/HR; Start 08/15/18 at 09:30; Stop 08/19/18 at 23:59 Vancomycin HCl (Vanco Iv Per Pharmacy) VANCOMYCIN PER PHARMACY PER PROTOCOL XX ; Start 08/15/18 at 09:00 Vancomycin HCl 1.5 gm/Sodium Chloride 250 ml @ 83.333 mls/ hr Q12H IVPB Last administered on 08/18/18 11:58; Admin Dose 83.333 MLS/HR; Start 08/15/18 at 23:00; Stop 08/19/18 at 23:59 Polyethylene Glycol (Miralax) 17 gm DAILY GTB Last administered on 08/18/18 10:23; Admin Dose 17 GM; Start 08/17/18 at 09:00 Naphazoline HCl (Clear Eyes / Naphcon) 2 drop QID BOTH EYES Last administered on 08/18/18at 13:45; Admin Dose 2 DROP; Start 08/16/18 at 18:14 Acetaminophen (Tylenol Liquid) 650 mg Q6H PRN NGT MILD PAIN(1-3)OR ELEVATED TEMP Last administered on 08/18/18at 12:13; Admin Dose 650 MG; Start 08/17/18 at 00:57 Dextrose 1,000 ml @ 75 mls/hr [id number] IV Last administered on 08/18/18at 11:23; Admin Dose 75 MLS/HR; Start 08/18/18 at 10:00; Stop 08/18/18 at 22:00 JOCELYN VILLALTA NP Aug 18, 2018 14:03
[2018-08-18] MEDS: COLISTIMETHATE 75 MG in SOD CHLORIDE 0.9% 100 ML IVPB SCH ×2 (16:07→20:22)
--- NOTE | 2018-08-18 19:22 | PN ---
Date/Time of Note Date/Time of Note DATE: 08/18/18 TIME: 19:22 Assessment/Plan Lines/Catheters IV Catheter Type (from Nrsg): PICC Line Santiago in Place (from Nrsg): Yes Assessment/Plan Assessment/Plan Respiratory failure Patient will need tracheostomy Considering his size he would benefit from a long extra long tracheostomy tube Patient refused surgery today we will proceed with tracheostomy when the patient is agreeable Subjective 24 Hr Interval Summary Constitutional: no complaints, improved, ambulates, BM, flatus, urine output Pain Control: well controlled Exam/Review of Systems Vital Signs Vitals Vital Signs Date Temp Pulse Resp B/P (MAP) Pulse Ox O2 O2 Flow FiO2 Time Delivery Rate 08/18/18 65 22 114/60 94 Mechanical 18:00 (78) Ventilator 08/18/18 35 17:23 08/18/18 99.8 17:00 Intake and Output 08/17/18 08/17/18 08/18/18 1515:00 23:00 07:00 IntakeIntake Total 805.52 ml 829.76 ml 1084.666 ml OutputOutput Total 780 ml 830 ml 600 ml BalanceBalance 25.52 ml -0.24 ml 484.666 ml Exam Eyes: nl conjunctiva, EOMI, nl lids, nl sclera ENMT: nl external ears & nose, nl lips & teeth, nl nasal mucosa & septum, mucosa pink and moist Neck: supple, non-tender Respiratory: clear to auscultation, normal air movement Cardiovascular: regular rate and rhythm, nl pulses Gastrointestinal: soft, nl liver, spleen, non-tender Musculoskeletal: nl extremities to inspection, nl gait and stance Results Result Diagram: 08/18/18 0500 08/18/18 0500 TIMMY DALAL MD Aug 18, 2018 19:22
[2018-08-18] MEDS: ZYVOX 600 MG TAB PO SCH (20:22)
[2018-08-19] VITALS (35 sets, daily range): BP systolic 101–122; BP diastolic 54–74; PULSE 63–85; RESP 18–26
[2018-08-19] MEDS: PROPOFOL 100 ML IV SCH ×9 (00:29→22:05)
[2018-08-19] MEDS: MIDAZOLAM (DRIP) 50 mg/50 mL 50 ML IV SCH ×2 (00:30→17:10)
[2018-08-19] MEDS: FENTAnyl (DRIP) 1000 mcg/100mL 100 ML IV SCH (03:52)
[2018-08-19] MEDS: METHYLPREDNISOLONE 40 MG INJ IV SCH ×3 (05:32→17:09)
[2018-08-19] MEDS: DOCUSATE SODIUM 10 MG/ML (10ML CUP) NGT SCH ×2 (07:55→20:24)
[2018-08-19] MEDS: ACETAMINOPHEN 650MG/20.3ML CUP NGT PRN ×2 (07:55→20:24)
[2018-08-19] MEDS: NAPHAZOLINE 0.012% 15 ML OPH BOTH EYES SCH ×4 (07:55→20:24)
[2018-08-19] MEDS: POLYETHYLENE GLYCOL 17 GM PACKET GTB SCH (07:56)
[2018-08-19] MEDS: FAMOTIDINE 20 MG TAB GTB SCH ×2 (07:56→20:24)
[2018-08-19] MEDS: ZYVOX 600 MG TAB PO SCH ×2 (07:56→20:25)
[2018-08-19] MEDS: COLISTIMETHATE 75 MG in SOD CHLORIDE 0.9% 100 ML IVPB SCH ×2 (08:36→20:24)
[2018-08-19] MEDS: ENOXAPARIN 40 MG/0.4 ML SYG SC SCH ×2 (08:41→20:30)
--- NOTE | 2018-08-19 08:43 | CONS ---
Assessment/Plan Assessment/Plan Assessment/Plan (Daily) Ventilator setting; AC of 18, tidal volume 500, PEEP of 8, 35% FiO2. Patient is currently on fentanyl 50 mics per hour, propofol 30 mics per kilogram per minute, Versed 5 mg/h. Assessment and recommendations; 1. Patient admitted with respiratory failure due to recurrent hypercapnia. History of sleep apnea. 2. Bilateral pneumonia, currently on appropriate antimicrobial regimen. 3. Possible underlying atrial stricture lung disease possibly sarcoidosis. Patient on Solu-Medrol. 4. Significant improvement in hypoxemia. Patient still presenting with significant persistent hypercapnia. Continue current supportive care. Patient scheduled for tracheostomy. Consultation Date/Type/Reason Admit Date/Time Aug 08, 2018 at 17:18 Initial Consult Date 08/09/18 Type of Consult Pulmonary/critical care Consult dictated by mistake on last admission chart review. Please refer to last admission for consult note. Date/Time of Note DATE: 08/19/18 TIME: 08:40 24 HR Interval Summary Free Text/Dictation Patient's condition remains critical. Scheduled for tracheostomy. General exam; young male, morbidly obese, orally intubated and sedated. Currently no distress. Exam/Review of Systems Exam Vitals Vital Signs Date Temp Pulse Resp B/P (MAP) Pulse Ox O2 O2 Flow FiO2 Time Delivery Rate 08/19/18 35 08:00 08/19/18 101.4 07:55 08/19/18 82 25 117/59 95 Mechanica 06:00 (78) l Ventilato r Intake and Output 08/18/18 08/18/18 08/19/18 1515:00 23:00 07:00 IntakeIntake Total 1601.965 ml 1572.08 ml 1208.00 ml OutputOutput Total 675 ml 935 ml 950 ml BalanceBalance 926.965 ml 637.08 ml 258.00 ml Exam HEENT exam; supple neck, JVD difficult to see because of short neck. No thyromegaly. Orally intubated. Patient has fair dentition. Orogastric tube in place. Pupils are small bilaterally. Chest exam; clear breath sounds. S1-S2 audible, no murmurs. Regular rhythm. Abdomen exam; protuberant. Bowel sounds audible. Organomegaly difficult to assess. Extremity exam; no peripheral edema. HOSPITALIST NOCTURNIST PHYSICIAN exam; patient is sedated. Results Result Diagram: 08/19/18 0446 08/19/18 0453 Results 24hrs Laboratory Tests Test 08/19/18 04:46 08/19/18 04:51 08/19/18 04:53 White Blood Count 12.4 H Red Blood Count 4.99 Hemoglobin 11.3 L Hematocrit 42.7 Mean Corpuscular Volume 85.6 Mean Corpuscular Hemoglobin 22.6 L Mean Corpuscular Hemoglobin Concent 26.5 L Red Cell Distribution Width 16.3 H Platelet Count 319 Mean Platelet Volume 9.8 Immature Granulocytes % 0.600 H Neutrophils % 79.6 H Lymphocytes % 9.6 L Monocytes % 10.1 Eosinophils % 0.0 Basophils % 0.1 Nucleated Red Blood Cells % 0.0 Immature Granulocytes # 0.070 H Neutrophils # 9.9 H Lymphocytes # 1.2 Monocytes # 1.3 H Eosinophils # 0.0 Basophils # 0.0 Nucleated Red Blood Cells # 0.0 Phosphorus Level 4.4 Magnesium Level 2.1 Sodium Level 144 Potassium Level 4.5 Chloride Level 99 Carbon Dioxide Level 37 H Anion Gap 8 Blood Urea Nitrogen 43 H Creatinine 0.83 Est Glomerular Filtrat Rate mL/min > 60 Glucose Level 166 Calcium Level 9.3 Medications Medication Current Medications IV Flush (NS 3 ml) 3 ml PER PROTOCOL IV ; Start 08/08/18 at 17:30 Ondansetron HCl (Zofran Inj) 4 mg Q6H PRN IV NAUSEA; Start 08/08/18 at 17:30 Haloperidol (Haldol) 5 mg PRN PRN IM AGGITATED Last administered on 08/16/18at 08:32; Admin Dose 5 MG; Start 08/08/18 at 22:00 Propofol 100 ml @ 6.111 mls/ hr Q12H IV Last administered on 08/19/18at 06:38; Admin Dose 36.666 MLS/HR; Start 08/09/18 at 05:30 Fentanyl 100 ml @ 2.5 mls/hr TITRATE IV Last administered on 08/19/18at 03:52; Admin Dose 5 MLS/HR; Start 08/09/18 at 06:30 Enoxaparin Sodium (Lovenox) 40 mg Q12H SC Last administered on 08/18/18at 20:32; Admin Dose 40 MG; Start 08/09/18 at 21:00 Famotidine (Pepcid) 20 mg BID GTB Last administered on 08/19/18 07:56; Admin Dose 20 MG; Start 08/12/18 at 09:00 Midazolam HCl 50 ml @ 1 mls/hr TITRATE IV Last administered on 08/19/18 00:30; Admin Dose 5 MLS/HR; Start 08/13/18 at 08:30 Methylprednisolone Sodium Succinate (Solu-Medrol) 40 mg Q6 IV Last administered on 08/19/18 05:32; Admin Dose 40 MG; Start 08/13/18 at 12:00 Scopolamine (Transderm-Scop) 1 patch Q72H TRANSDERM Last administered on 08/16/18 21:18; Admin Dose 1 PATCH; Start 08/13/18 at 20:00 Docusate Sodium (Colace Liquid Cup) 200 mg BID NGT Last administered on 08/19/18 07:55; Admin Dose 200 MG; Start 08/14/18 at 21:00 Polyethylene Glycol (Miralax) 17 gm DAILY GTB Last administered on 08/19/18 07:56; Admin Dose 17 GM; Start 08/17/18 at 09:00 Naphazoline HCl (Clear Eyes / Naphcon) 2 drop QID BOTH EYES Last administered on 08/19/18 07:55; Admin Dose 2 DROP; Start 08/16/18 at 18:14 Acetaminophen (Tylenol Liquid) 650 mg Q6H PRN NGT MILD PAIN(1-3)OR ELEVATED TEMP Last administered on 08/19/18 07:55; Admin Dose 650 MG; Start 08/17/18 at 00:57 Colistimethate Sodium 75 mg/ Sodium Chloride 100 ml @ 200 mls/hr Q12 IVPB Last administered on 08/18/18 20:22; Admin Dose 200 MLS/HR; Start 08/18/18 at 14:00 Linezolid (Zyvox) 600 mg BID PO Last administered on 08/19/18 07:56; Admin Dose 600 MG; Start 08/18/18 at 21:00 TAVIA KING Aug 19, 2018 08:43
--- NOTE | 2018-08-19 09:12 | PN ---
Date/Time of Note Date/Time of Note DATE: 08/19/18 TIME: 09:09 Assessment/Plan VTE Prophylaxis Risk score (from Ns)>0 risk: 12 SCD applied (from Ns): No SCD contraindicated: other Pharmacological prophylaxis: LMWH Lines/Catheters IV Catheter Type (from Nrs): PICC Line Central line still needed: Yes Urinary Cath still in place: Yes Reason Cath still needed: urinary retention Assessment/Plan Hospital Course S: Pt still intubated, persistent fevers still present. Tentatively scheduled for tracheostomy placement when appropriate equipment arrives, although family apparently refused yesterday, now reconsidering this option. Tolerating tube feeds. O: VS - see below PE: Gen: Morbidly obese man lying in bed intubated and sedated. Neck: Obese, no lymphadenopathy appreciated HEENT: Clear oropharynx, moist mucous membranes Card: Regular rate and rhythm, distant heart sounds Pulm: distant lung sounds. Abd: Morbidly obese, soft, nontender. Ext: Bilateral LE with redness and chronic venous stasis changes. Neuro: unable to fully assess Assessment/Plan: 32M morbidly obese presents with hypercapnic respiratory failure and pneumonia. #Hypoxic and hypercapnic respiratory failure - Likely from obesity (ANDREW), exacerbated by likely pneumonia - Intubated 08/09-has been on broad-spectrum an tibiotics-and respiratory culture came back multidrug-resistant Enterobacter, antibiotics changed yesterday by ID team based on this. - For now continue IV diuresis, mechanical ventilation via pulmonary recommendations -per their recommendations if the patient continues to be persistently hypercapnic he will likely require tracheostomy -and CTS is scheduled to do this now when the equipment arrives -Updated patient's family yesterday at bedside, initially they were hesitant to proceed with tracheostomy, now they are reconsidering this option. - Monitor ins and outs, BUN/creatinine levels - Continue NG tube feeds, now Zyvox and colistin antibiotics # Pneumonia- Bilateral patchy infiltrates on CXR,WBC 16 on admission-but again with persistent fevers the last 48-72 hours- on broad-spectrum antibiotics. - Monitor, continue current antibiotics, follow up pulmonary and follow-up ID recommendations. - Unfortunately patient exceeds the weight limit for CT scanner, monitor for now #Hypernatremia: Resolved now at 144 -Continue free water for now, off D5W IV fluids now DVT: lovenox GI: Protonix IV Critical care time spent in patient care today equals 45 minutes. Result Diagram: 08/19/18 0446 08/19/18 0453 Results 24hrs Laboratory Tests Test 08/19/18 04:46 08/19/18 04:51 08/19/18 04:53 White Blood Count 12.4 H Red Blood Count 4.99 Hemoglobin 11.3 L Hematocrit 42.7 Mean Corpuscular Volume 85.6 Mean Corpuscular Hemoglobin 22.6 L Mean Corpuscular Hemoglobin Concent 26.5 L Red Cell Distribution Width 16.3 H Platelet Count 319 Mean Platelet Volume 9.8 Immature Granulocytes % 0.600 H Neutrophils % 79.6 H Lymphocytes % 9.6 L Monocytes % 10.1 Eosinophils % 0.0 Basophils % 0.1 Nucleated Red Blood Cells % 0.0 Immature Granulocytes # 0.070 H Neutrophils # 9.9 H Lymphocytes # 1.2 Monocytes # 1.3 H Eosinophils # 0.0 Basophils # 0.0 Nucleated Red Blood Cells # 0.0 Phosphorus Level 4.4 Magnesium Level 2.1 Sodium Level 144 Potassium Level 4.5 Chloride Level 99 Carbon Dioxide Level 37 H Anion Gap 8 Blood Urea Nitrogen 43 H Creatinine 0.83 Est Glomerular Filtrat Rate mL/min > 60 Glucose Level 166 Calcium Level 9.3 Exam/Review of Systems Exam Vitals Vital Signs Date Temp Pulse Resp B/P (MAP) Pulse Ox O2 O2 Flow FiO2 Time Delivery Rate 08/19/18 68 21 120/58 93 [employer] 09:00 (78) l Ventilato r 08/19/18 100.2 08:45 08/19/18 35 08:00 Intake and Output 08/18/18 08/18/18 08/19/18 1515:00 23:00 07:00 IntakeIntake Total 1601.965 ml 1572.08 ml 1314.70 ml OutputOutput Total 675 ml 935 ml 1000 ml BalanceBalance 926.965 ml 637.08 ml 314.70 ml Results Results 24hrs Laboratory Tests Test 08/19/18 04:46 08/19/18 04:51 08/19/18 04:53 White Blood Count 12.4 H Red Blood Count 4.99 Hemoglobin 11.3 L Hematocrit 42.7 Mean Corpuscular Volume 85.6 Mean Corpuscular Hemoglobin 22.6 L Mean Corpuscular Hemoglobin Concent 26.5 L Red Cell Distribution Width 16.3 H Platelet Count 319 Mean Platelet Volume 9.8 Immature Granulocytes % 0.600 H Neutrophils % 79.6 H Lymphocytes % 9.6 L Monocytes % 10.1 Eosinophils % 0.0 Basophils % 0.1 Nucleated Red Blood Cells % 0.0 Immature Granulocytes # 0.070 H Neutrophils # 9.9 H Lymphocytes # 1.2 Monocytes # 1.3 H Eosinophils # 0.0 Basophils # 0.0 Nucleated Red Blood Cells # 0.0 Phosphorus Level 4.4 Magnesium Level 2.1 Sodium Level 144 Potassium Level 4.5 Chloride Level 99 Carbon Dioxide Level 37 H Anion Gap 8 Blood Urea Nitrogen 43 H Creatinine 0.83 Est Glomerular Filtrat Rate mL/min > 60 Glucose Level 166 Calcium Level 9.3 Medications Medication Current Medications IV Flush (NS 3 ml) 3 ml PER PROTOCOL IV ; Start 08/08/18 at 17:30 Ondansetron HCl (Zofran Inj) 4 mg Q6H PRN IV NAUSEA; Start 08/08/18 at 17:30 Haloperidol (Haldol) 5 mg PRN PRN IM AGGITATED Last administered on 08/16/18 08:32; Admin Dose 5 MG; Start 08/08/18 at 22:00 Propofol 100 ml @ 6.111 mls/ hr Q12H IV Last administered on 08/19/18 09:02; Admin Dose 36.666 MLS/HR; Start 08/09/18 at 05:30 Fentanyl 100 ml @ 2.5 mls/hr TITRATE IV Last administered on 08/19/18 03:52; Admin Dose 5 MLS/HR; Start 08/09/18 at 06:30 Enoxaparin Sodium (Lovenox) 40 mg Q12H SC Last administered on 08/19/18 08:41; Admin Dose 40 MG; Start 08/09/18 at 21:00 Famotidine (Pepcid) 20 mg BID GTB Last administered on 08/19/18 07:56; Admin Dose 20 MG; Start 08/12/18 at 09:00 Midazolam HCl 50 ml @ 1 mls/hr TITRATE IV Last administered on 08/19/18 00:30; Admin Dose 5 MLS/HR; Start 08/13/18 at 08:30 Methylprednisolone Sodium Succinate (Solu-Medrol) 40 mg Q6 IV Last administered on 08/19/18 05:32; Admin Dose 40 MG; Start 08/13/18 at 12:00 Scopolamine (Transderm-Scop) 1 patch Q72H TRANSDERM Last administered on 08/16/18 21:18; Admin Dose 1 PATCH; Start 08/13/18 at 20:00 Docusate Sodium (Colace Liquid Cup) 200 mg BID NGT Last administered on 08/19/18 07:55; Admin Dose 200 MG; Start 08/14/18 at 21:00 Polyethylene Glycol (Miralax) 17 gm DAILY GTB Last administered on 08/19/18 07:56; Admin Dose 17 GM; Start 08/17/18 at 09:00 Naphazoline HCl (Clear Eyes / Naphcon) 2 drop QID BOTH EYES Last administered o n 08/19/18 07:55; Admin Dose 2 DROP; Start 08/16/18 at 18:14 Acetaminophen (Tylenol Liquid) 650 mg Q6H PRN NGT MILD PAIN(1-3)OR ELEVATED TEMP Last administered on 08/19/18 07:55; Admin Dose 650 MG; Start 08/17/18 at 00:57 Colistimethate Sodium 75 mg/ Sodium Chloride 100 ml @ 200 mls/hr Q12 IVPB Last administered on 08/19/18 08:36; Admin Dose 200 MLS/HR; Start 08/18/18 at 14:00 Linezolid (Zyvox) 600 mg BID PO Last administered on 08/19/18 07:56; Admin Dose 600 MG; Start 08/18/18 at 21:00 RC GO Aug 19, 2018 09:12
--- NOTE | 2018-08-19 09:48 | CONS ---
Assessment/Plan Assessment/Plan Hospital Course (Demo Recall) ID PROGRESS NOTE CURRENT ABX: DAY # 11=> Zyvox + Colistin s/p Vanco IV/Zosyn 08/19/18 0446 08/19/18 0453 24H INTERVAL SUMMARY * Non-communicative, super morbid obese M, orally intubated, sedated on the Vent, looks comfortable, NAD * Tc 100.2 -- TMax 101.4 this am * 08/19/2018 CXR: IMPRESSION:1. The extreme lung apices are out of the field of view and difficult to assess the tip of the endotracheal tube. Recommend repeat imaging.2. Enlarged cardiac silhouette and mild vascular congestion. 3. Mild left basilar opacity may reflect atelectasis versus infiltrate. MICRO/OTHER * 08/16/18 Respiratory Cx (+)ACBA = MDRO * 08/09/18 BRONCH (-) * 08/08/18 (-)MRSA, (-)Influenza A/B, (-)UTI * 08/08/18 BCx (-) * PHYSICAL EXAMINATION: GENERAL: Non-communicative, super morbid obese M, orally intubated, sedated on the Vent, looks comfortable, NAD HEENT: AT, NC, anicteric, ETT secure NECK: Supple, trach midline CHEST: Equal chest rise bilaterally, without dyspnea on observation = Vented HEART: Pulse RRR ABDOMEN: Soft / NT EXTREMITIES: Warm, dry SKIN: No rash, no diaphoresis, multiple Tattoos ID ASSESSMENT 32 yo Super Morbid Obese M admit with: 1. Sepsis w/Fevers - HCAP superimposed on probable ASP PNA 2. Leukocytosis - partial IV steroids demargination 3. PNA -- ASP PNA risk factors 4. Acute hypoxic respiratory failure 5. Obstructive Sleep Apnea/Obesity hypoventilation syndrome (-)MRSA Nares ABX ALLERGIES: KNDA INVASIVES: PIV CURRENT ABX: DAY #11 => Zyvox + Colistin s/p Vanco IV/Zosyn ID RECOMMENDATIONS/PLAN: 1. Continue current ABX and hope for the best . Consultation Date/Type/Reason Admit Date/Time Aug 08, 2018 at 17:18 Initial Consult Date 08/09/18 Date/Time of Note DATE: 08/19/18 TIME: 09:47 Exam/Review of Systems Exam Vitals Vital Signs Date Temp Pulse Resp B/P (MAP) Pulse Ox O2 O2 Flow FiO2 Time Delivery Rate 08/19/18 68 21 120/58 93 [employer] 09:00 (78) l Ventilato r 08/19/18 100.2 08:45 08/19/18 35 08:00 Intake and Output 08/18/18 08/18/18 08/19/18 1414:59 22:59 06:59 IntakeIntake Total 1526.971 ml 1659.30 ml 1302.44 ml OutputOutput Total 575 ml 910 ml 1075 ml BalanceBalance 951.971 ml 749.30 ml 227.44 ml Results Result Diagram: 08/19/18 0446 08/19/18 0453 Results 24hrs Laboratory Tests Test 08/19/18 04:46 08/19/18 04:51 08/19/18 04:53 White Blood Count 12.4 H Red Blood Count 4.99 Hemoglobin 11.3 L Hematocrit 42.7 Mean Corpuscular Volume 85.6 Mean Corpuscular Hemoglobin 22.6 L Mean Corpuscular Hemoglobin Concent 26.5 L Red Cell Distribution Width 16.3 H Platelet Count 319 Mean Platelet Volume 9.8 Immature Granulocytes % 0.600 H Neutrophils % 79.6 H Lymphocytes % 9.6 L Monocytes % 10.1 Eosinophils % 0.0 Basophils % 0.1 Nucleated Red Blood Cells % 0.0 Immature Granulocytes # 0.070 H Neutrophils # 9.9 H Lymphocytes # 1.2 Monocytes # 1.3 H Eosinophils # 0.0 Basophils # 0.0 Nucleated Red Blood Cells # 0.0 Phosphorus Level 4.4 Magnesium Level 2.1 Sodium Level 144 Potassium Level 4.5 Chloride Level 99 Carbon Dioxide Level 37 H Anion Gap 8 Blood Urea Nitrogen 43 H Creatinine 0.83 Est Glomerular Filtrat Rate mL/min > 60 Glucose Level 166 Calcium Level 9.3 Medications Medication Current Medications IV Flush (NS 3 ml) 3 ml PER PROTOCOL IV ; Start 08/08/18 at 17:30 Ondansetron HCl (Zofran Inj) 4 mg Q6H PRN IV NAUSEA; Start 08/08/18 at 17:30 Haloperidol (Haldol) 5 mg PRN PRN IM AGGITATED Last administered on 08/16/18 08:32; Admin Dose 5 MG; Start 08/08/18 at 22:00 Propofol 100 ml @ 6.111 mls/ hr Q12H IV Last administered on 08/19/18 09:02; Admin Dose 36.666 MLS/HR; Start 08/09/18 at 05:30 Fentanyl 100 ml @ 2.5 mls/hr TITRATE IV Last administered on 08/19/18 03:52; Admin Dose 5 MLS/HR; Start 08/09/18 at 06:30 Enoxaparin Sodium (Lovenox) 40 mg Q12H SC Last administered on 08/19/18 08:41; Admin Dose 40 MG; Start 08/09/18 at 21:00 Famotidine (Pepcid) 20 mg BID GTB Last administered on 08/19/18 07:56; Admin Dose 20 MG; Start 08/12/18 at 09:00 Midazolam HCl 50 ml @ 1 mls/hr TITRATE IV Last administered on 08/19/18 00:30; Admin Dose 5 MLS/HR; Start 08/13/18 at 08:30 Methylprednisolone Sodium Succinate (Solu-Medrol) 40 mg Q6 IV Last administered on 08/19/18 05:32; Admin Dose 40 MG; Start 08/13/18 at 12:00 Scopolamine (Transderm-Scop) 1 patch Q72H TRANSDERM Last administered on 08/16/18 21:18; Admin Dose 1 PATCH; Start 08/13/18 at 20:00 Docusate Sodium (Colace Liquid Cup) 200 mg BID NGT Last administered on 08/19/18 07:55; Admin Dose 200 MG; Start 08/14/18 at 21:00 Polyethylene Glycol (Miralax) 17 gm DAILY GTB Last administered on 08/19/18 07:56; Admin Dose 17 GM; Start 08/17/18 at 09:00 Naphazoline HCl (Clear Eyes / Naphcon) 2 drop QID BOTH EYES Last administered on 08/19/18 07:55; Admin Dose 2 DROP; Start 08/16/18 at 18:14 Acetaminophen (Tylenol Liquid) 650 mg Q6H PRN NGT MILD PAIN(1-3)OR ELEVATED TEMP Last administered on 08/19/18 07:55; Admin Dose 650 MG; Start 08/17/18 at 00:57 Colistimethate Sodium 75 mg/ Sodium Chloride 100 ml @ 200 mls/hr Q12 IVPB Last administered on 08/19/18 08:36; Admin Dose 200 MLS/HR; Start 08/18/18 at 14:00 Linezolid (Zyvox) 600 mg BID PO Last administered on 08/19/18 07:56; Admin Dose 600 MG; Start 08/18/18 at 21:00 GARCÍA JOHNSON NP Aug 19, 2018 09:48
--- NOTE | 2018-08-19 13:17 | PN ---
Date/Time of Note Date/Time of Note DATE: 08/19/18 TIME: 13:16 Assessment/Plan Lines/Catheters IV Catheter Type (from Nrsg): PICC Line Santiago in Place (from Nrsg): Yes Assessment/Plan Assessment/Plan Respiratory failure Patient will need tracheostomy Considering his size he would benefit from a long extra long tracheostomy tube Patient refused surgery today we will proceed with tracheostomy when the patient is agreeable Subjective 24 Hr Interval Summary Constitutional: no complaints, improved, ambulates, BM, flatus, urine output Pain Control: well controlled Exam/Review of Systems Vital Signs Vitals Vital Signs Date Temp Pulse Resp B/P (MAP) Pulse Ox O2 O2 Flow FiO2 Time Delivery Rate 08/19/18 68 21 120/58 93 [employer] 09:00 (78) l Ventilato r 08/19/18 100.2 08:45 08/19/18 35 08:00 Intake and Output 08/18/18 08/18/18 08/19/18 1414:59 22:59 06:59 IntakeIntake Total 1526.971 ml 1659.30 ml 1302.44 ml OutputOutput Total 575 ml 910 ml 1075 ml BalanceBalance 951.971 ml 749.30 ml 227.44 ml Exam Eyes: nl conjunctiva, EOMI, nl lids, nl sclera ENMT: nl external ears & nose, nl lips & teeth, nl nasal mucosa & septum, mucosa pink and moist Neck: supple, non-tender Respiratory: clear to auscultation, normal air movement Cardiovascular: regular rate and rhythm, nl pulses Gastrointestinal: soft, nl liver, spleen, non-tender Musculoskeletal: nl extremities to inspection, nl gait and stance Results Result Diagram: 08/19/18 0446 08/19/18 0453 TIMMY DALAL MD Aug 19, 2018 13:17
[2018-08-19] MEDS: SCOPOLAMINE 1.5 MG PATCH TRANSDERM SCH (20:24)
[2018-08-20] VITALS (46 sets, daily range): BP systolic 106–127; BP diastolic 51–68; PULSE 57–75; RESP 18–23
[2018-08-20] MEDS: METHYLPREDNISOLONE 40 MG INJ IV SCH ×4 (00:31→17:31)
[2018-08-20] MEDS: FENTAnyl (DRIP) 1000 mcg/100mL 100 ML IV SCH ×2 (00:34→17:40)
[2018-08-20] MEDS: PROPOFOL 100 ML IV SCH ×11 (00:35→23:34)
--- NOTE | 2018-08-20 00:59 | PN ---
Date/Time of Note Date/Time of Note DATE: 08/20/18 TIME: 00:57 Assessment/Plan VTE Prophylaxis Risk score (from Ns)>0 risk: 12 SCD applied (from [facility]): No SCD contraindicated: other Pharmacological prophylaxis: LMWH Lines/Catheters IV Catheter Type (from [facility]): PICC Line Central line still needed: Yes Urinary Cath still in place: Yes Reason Cath still needed: urinary retention Assessment/Plan Hospital Course S: Pt still intubated, still with fevers but less frequent in the last 24 hours now. O: VS - see below PE: Gen: Morbidly obese man lying in bed intubated and sedated. Neck: Obese, no lymphadenopathy appreciated HEENT: Clear oropharynx, moist mucous membranes Card: Regular rate and rhythm, distant heart sounds Pulm: distant lung sounds. Abd: Morbidly obese, soft, nontender. Ext: Bilateral LE with redness and chronic venous stasis changes. Neuro: unable to fully assess Assessment/Plan: 32M morbidly obese presents with hypercapnic respiratory failure and pneumonia. #Hypoxic and hypercapnic respiratory failure - Likely from obesity (ANDREW), exacerbated by likely pneumonia - Intubated 08/09-has been on broad-spectrum antibiotics-and respiratory culture came back multidrug-resistant Enterobacter, antibiotics changed yesterday by ID team based on this. - For now continue on mechanical ventilation via pulmonary recommendations - per their recommendations patient has been persistently hypercapnic he will likely require tracheostomy -and CTS is scheduled to do this now when the equipment arrives -likely to be performed in the next 24 hours - Updated patient's family (brothers) extensively at bedside 3 days ago, initially they were hesitant to proceed with tracheostomy, now they are reconsidering this option -again once equipment arrives tracheostomy likely is scheduled to be performed in the next 24-hour - Monitor ins and outs, BUN/creatinine levels - Continue NG tube feeds, Zyvox and colistin antibiotics per ID rec's # Pneumonia- Bilateral patchy infiltrates on CXR,WBC 16 on admission-but again with persistent fevers the last 72-96 hours- on broad-spectrum antibiotics for MDR actinobacter PNA - Monitor, continue current antibiotics, follow up pulmonary and follow-up ID recommendations. - Unfortunately patient exceeds the weight limit for CT scanner, monitor for now #Hypernatremia: Resolved -monitor, free H20 DVT: lovenox GI: Protonix IV Critical care time spent in patient care today equals 40 minutes. Result Diagram: 08/19/18 0446 08/19/18 0453 Results 24hrs Laboratory Tests Test 08/19/18 04:46 08/19/18 04:51 08/19/18 04:53 White Blood Count 12.4 H Red Blood Count 4.99 Hemoglobin 11.3 L Hematocrit 42.7 Mean Corpuscular Volume 85.6 Mean Corpuscular Hemoglobin 22.6 L Mean Corpuscular Hemoglobin Concent 26.5 L Red Cell Distribution Width 16.3 H Platelet Count 319 Mean Platelet Volume 9.8 Immature Granulocytes % 0.600 H Neutrophils % 79.6 H Lymphocytes % 9.6 L Monocytes % 10.1 Eosinophils % 0.0 Basophils % 0.1 Nucleated Red Blood Cells % 0.0 Immature Granulocytes # 0.070 H Neutrophils # 9.9 H Lymphocytes # 1.2 Monocytes # 1.3 H Eosinophils # 0.0 Basophils # 0.0 Nucleated Red Blood Cells # 0.0 Phosphorus Level 4.4 Magnesium Level 2.1 Sodium Level 144 Potassium Level 4.5 Chloride Level 99 Carbon Dioxide Level 37 H Anion Gap 8 Blood Urea Nitrogen 43 H Creatinine 0.83 Est Glomerular Filtrat Rate mL/min > 60 Glucose Level 166 Calcium Level 9.3 Exam/Review of Systems Exam Vitals Vital Signs Date Temp Pulse Resp B/P (MAP) Pulse Ox O2 O2 Flow FiO2 Time Delivery Rate 08/20/18 35 00:10 08/19/18 72 20 111/56 90 [employer] 23:00 (74) l Ventilato r 08/19/18 100.0 22:00 Intake and Output 08/19/18 08/19/18 08/20/18 1414:59 22:59 06:59 IntakeIntake Total 1128.6 ml 1301.760 ml 149.666 ml OutputOutput Total 810 ml 940 ml 125 ml BalanceBalance 318.6 ml 361.760 ml 24.666 ml Results Results 24hrs Laboratory Tests Test 08/19/18 04:46 08/19/18 04:51 08/19/18 04:53 White Blood Count 12.4 H Red Blood Count 4.99 Hemoglobin 11.3 L Hematocrit 42.7 Mean Corpuscular Volume 85.6 Mean Corpuscular Hemoglobin 22.6 L Mean Corpuscular Hemoglobin Concent 26.5 L Red Cell Distribution Width 16.3 H Platelet Count 319 Mean Platelet Volume 9.8 Immature Granulocytes % 0.600 H Neutrophils % 79.6 H Lymphocytes % 9.6 L Monocytes % 10.1 Eosinophils % 0.0 Basophils % 0.1 Nucleated Red Blood Cells % 0.0 Immature Granulocytes # 0.070 H Neutrophils # 9.9 H Lymphocytes # 1.2 Monocytes # 1.3 H Eosinophils # 0.0 Basophils # 0.0 Nucleated Red Blood Cells # 0.0 Phosphorus Level 4.4 Magnesium Level 2.1 Sodium Level 144 Potassium Level 4.5 Chloride Level 99 Carbon Dioxide Level 37 H Anion Gap 8 Blood Urea Nitrogen 43 H Creatinine 0.83 Est Glomerular Filtrat Rate mL/min > 60 Glucose Level 166 Calcium Level 9.3 Medications Medication Current Medications IV Flush (NS 3 ml) 3 ml PER PROTOCOL IV ; Start 08/08/18 at 17:30 Ondansetron HCl (Zofran Inj) 4 mg Q6H PRN IV NAUSEA; Start 08/08/18 at 17:30 Haloperidol (Haldol) 5 mg PRN PRN IM AGGITATED Last administered on 08/16/18 08:32; Admin Dose 5 MG; Start 08/08/18 at 22:00 Propofol 100 ml @ 6.111 mls/ hr Q12H IV Last administered on 08/20/18 00:35; Admin Dose 36.666 MLS/HR; Start 08/09/18 at 05:30 Fentanyl 100 ml @ 2.5 mls/hr TITRATE IV Last administered on 08/20/18 00:34; Admin Dose 5 MLS/HR; Start 08/09/18 at 06:30 Enoxaparin Sodium (Lovenox) 40 mg Q12H SC Last administered on 08/19/18 20:30; Admin Dose 40 MG; Start 08/09/18 at 21:00 Famotidine (Pepcid) 20 mg BID GTB Last administered on 08/19/18 20:24; Admin Dose 20 MG; Start 08/12/18 at 09:00 Midazolam HCl 50 ml @ 1 mls/hr TITRATE IV Last administered on 08/19/18 17:10; Admin Dose 4 MLS/HR; Start 08/13/18 at 08:30 Methylprednisolone Sodium Succinate (Solu-Medrol) 40 mg Q6 IV Last administered on 08/20/18 00:31; Admin Dose 40 MG; Start 08/13/18 at 12:00 Scopolamine (Transderm-Scop) 1 patch Q72H TRANSDERM Last administered on 08/19/18 20:24; Admin Dose 1 PATCH; Start 08/13/18 at 20:00 Docusate Sodium (Colace Liquid Cup) 200 mg BID NGT Last administered on 08/19/18 20:24; Admin Dose 200 MG; Start 08/14/18 at 21:00 Polyethylene Glycol (Miralax) 17 gm DAILY GTB Last administered on 08/19/18 07:56; Admin Dose 17 GM; Start 08/17/18 at 09:00 Naphazoline HCl (Clear Eyes / Naphcon) 2 drop QID BOTH EYES Last administered on 08/19/18 20:24; Admin Dose 2 DROP; Start 08/16/18 at 18:14 Acetaminophen (Tylenol Liquid) 650 mg Q6H PRN NGT MILD PAIN(1-3)OR ELEVATED TEMP Last administered on 08/19/18 20:24; Admin Dose 650 MG; Start 08/17/18 at 00:57 Colistimethate Sodium 75 mg/ Sodium Chloride 100 ml @ 200 mls/hr Q12 IVPB Last administered on 08/19/18 20:24; Admin Dose 200 MLS/HR; Start 08/18/18 at 14:00 Linezolid (Zyvox) 600 mg BID PO Last administered on 08/19/18 20:25; Admin Dose 600 MG; Start 08/18/18 at 21:00 RC GO Aug 20, 2018 00:59
[2018-08-20] MEDS: MIDAZOLAM (DRIP) 50 mg/50 mL 50 ML IV SCH ×2 (04:26→13:20)
--- NOTE | 2018-08-20 08:24 | CONS ---
Assessment/Plan Assessment/Plan Assessment/Plan (Daily) Ventilator setting; AC of 18, tidal volume 500, PEEP of 8, 40% FiO2. Patient is currently on Versed 5 mg/h, propofol 40 mics per kilogram per minute, fentanyl 50 mics per hour. Assessment and recommendations; 1. Patient admitted with recurrent respiratory failure due to underlying obesity hypoventilation syndrome. 2. Persistent severe hypercapnia precluding weaning from ventilator. 3. Interstitial lung disease possibly sarcoidosis. Patient started empirically on Solu-Medrol. 4. Recurrent H CAP. Acinetobacter cultured from sputum. Continue current supportive care. Patient scheduled for tracheostomy. Consultation Date/Type/Reason Admit Date/Time Aug 08, 2018 at 17:18 Initial Consult Date 08/09/18 Type of Consult Pulmonary/critical care Consult dictated by mistake on last admission chart review. Please refer to last admission for consult note. Date/Time of Note DATE: 08/20/18 TIME: 08:21 24 HR Interval Summary Free Text/Dictation Patient's condition remains critical. Still requiring full invasive mechanical ventilation. Patient however has remained hemodynamically stable. General exam; young male, morbid obese, orally intubated, sedated, currently in no distress. Exam/Review of Systems Exam Vitals Vital Signs Date Temp Pulse Resp B/P (MAP) Pulse Ox O2 O2 Flow FiO2 Time Delivery Rate 08/20/18 65 112/51 96 Mechanical 06:00 (71) Ventilator 08/20/18 19 40 05:00 08/20/18 99.5 04:00 Intake and Output 08/19/18 08/19/18 08/20/18 1515:00 23:00 07:00 IntakeIntake Total 1123.6 ml 1304.060 ml 983.500 ml OutputOutput Total 825 ml 1000 ml 825 ml BalanceBalance 298.6 ml 304.060 ml 158.500 ml Exam H EENT exam; supple neck, JVD difficult to see because of short neck. Patient is orally intubated. No neck masses. Dentition is fair. Chest exam; diminished breath sounds throughout. S1-S2 audible, no murmurs. Regular rhythm. Abdomen exam; soft, protuberant. Bowel sounds audible. Organomegaly difficult to assess. Extremity exam; no edema. [employer] exam; patient is sedated. Results Result Diagram: 08/20/18 0420 08/20/18 0420 Results 24hrs Laboratory Tests Test 08/20/18 04:20 White Blood Count 13.7 H Red Blood Count 4.95 Hemoglobin 11.2 L Hematocrit 42.1 Mean Corpuscular Volume 85.1 Mean Corpuscular Hemoglobin 22.6 L Mean Corpuscular Hemoglobin Concent 26.6 L Red Cell Distribution Width 16.1 H Platelet Count 299 Mean Platelet Volume 8.9 Immature Granulocytes % 0.700 H Neutrophils % 83.4 H Lymphocytes % 7.2 L Monocytes % 8.6 Eosinophils % 0.0 Basophils % 0.1 Nucleated Red Blood Cells % 0.0 Immature Granulocytes # 0.100 H Neutrophils # 11.4 H Lymphocytes # 1.0 Monocytes # 1.2 H Eosinophils # 0.0 Basophils # 0.0 Nucleated Red Blood Cells # 0.0 Sodium Level 143 Potassium Level 4.5 Chloride Level 100 Carbon Dioxide Level 39 H Anion Gap 4 L Blood Urea Nitrogen 40 H Creatinine 0.75 Est Glomerular Filtrat Rate mL/min > 60 Glucose Level 151 Calcium Level 9.0 Medications Medication Current Medications IV Flush (NS 3 ml) 3 ml PER PROTOCOL IV ; Start 08/08/18 at 17:30 Ondansetron HCl (Zofran Inj) 4 mg Q6H PRN IV NAUSEA; Start 08/08/18 at 17:30 Haloperidol (Haldol) 5 mg PRN PRN IM AGGITATED Last administered on 08/16/18 08:32; Admin Dose 5 MG; Start 08/08/18 at 22:00 Propofol 100 ml @ 6.111 mls/ hr Q12H IV Last administered on 08/20/18 07:27; Admin Dose 48.888 MLS/HR; Start 08/09/18 at 05:30 Fentanyl 100 ml @ 2.5 mls/hr TITRATE IV Last administered on 08/20/18 00:34; Admin Dose 5 MLS/HR; Start 08/09/18 at 06:30 Enoxaparin Sodium (Lovenox) 40 mg Q12H SC Last administered on 08/19/18 20:30; Admin Dose 40 MG; Start 08/09/18 at 21:00 Famotidine (Pepcid) 20 mg BID GTB Last administered on 08/19/18 20:24; Admin Dose 20 MG; Start 08/12/18 at 09:00 Midazolam HCl 50 ml @ 1 mls/hr TITRATE IV Last administered on 08/20/18 04:26; Admin Dose 5 MLS/HR; Start 08/13/18 at 08:30 Methylprednisolone Sodium Succinate (Solu-Medrol) 40 mg Q6 IV Last administered on 08/20/18 05:52; Admin Dose 40 MG; Start 08/13/18 at 12:00 Scopolamine (Transderm-Scop) 1 patch Q72H TRANSDERM Last administered on 08/19/18 20:24; Admin Dose 1 PATCH; Start 08/13/18 at 20:00 Docusate Sodium (Colace Liquid Cup) 200 mg BID NGT Last administered on 08/19/18 20:24; Admin Dose 200 MG; Start 08/14/18 at 21:00 Polyethylene Glycol (Miralax) 17 gm DAILY GTB Last administered on 08/19/18 07:56; Admin Dose 17 GM; Start 08/17/18 at 09:00 Naphazoline HCl (Clear Eyes / Naphcon) 2 drop QID BOTH EYES Last administered on 08/19/18 20:24; Admin Dose 2 DROP; Start 08/16/18 at 18:14 Acetaminophen (Tylenol Liquid) 650 mg Q6H PRN NGT MILD PAIN(1-3)OR ELEVATED TEMP Last administered on 08/19/18 20:24; Admin Dose 650 MG; Start 08/17/18 at 00:57 Colistimethate Sodium 75 mg/ Sodium Chloride 100 ml @ 200 mls/hr Q12 IVPB Last administered on 08/19/18 20:24; Admin Dose 200 MLS/HR; Start 08/18/18 at 14:00 Linezolid (Zyvox) 600 mg BID PO Last administered on 08/19/18 20:25; Admin Dose 600 MG; Start 08/18/18 at 21:00 TAVIA KING Aug 20, 2018 08:24
[2018-08-20] MEDS: DOCUSATE SODIUM 10 MG/ML (10ML CUP) NGT SCH ×2 (08:31→21:15)
[2018-08-20] MEDS: FAMOTIDINE 20 MG TAB GTB SCH ×2 (08:31→21:15)
[2018-08-20] MEDS: NAPHAZOLINE 0.012% 15 ML OPH BOTH EYES SCH ×4 (08:31→21:17)
[2018-08-20] MEDS: POLYETHYLENE GLYCOL 17 GM PACKET GTB SCH (08:31)
[2018-08-20] MEDS: ZYVOX 600 MG TAB PO SCH ×2 (08:31→21:15)
[2018-08-20] MEDS: ENOXAPARIN 40 MG/0.4 ML SYG SC SCH ×2 (08:57→21:24)
[2018-08-20] MEDS: COLISTIMETHATE 75 MG in SOD CHLORIDE 0.9% 100 ML IVPB SCH ×2 (09:56→21:15)
--- NOTE | 2018-08-20 11:09 | CONS ---
Assessment/Plan Assessment/Plan Hospital Course (Demo Recall) ID PROGRESS NOTE CURRENT ABX: DAY # 12=> Zyvox + Colistin s/p Vanco IV/Zosyn 08/20/18 0420 08/20/18 0420 24H INTERVAL SUMMARY * Low grade Tmax 99.3 -- improved over past few days * Non-communicative, super morbid obese M, orally intubated, sedated on the Vent, looks comfortable, NAD * 08/19/2018 CXR: IMPRESSION:1. The extreme lung apices are out of the field of view and difficult to assess the tip of the endotracheal tube. Recommend repeat imaging.2. Enlarged cardiac silhouette and mild vascular congestion. 3. Mild left basilar opacity may reflect atelectasis versus infiltrate. MICRO/OTHER * 08/16/18 Respiratory Cx (+)ACBA = MDRO * 08/09/18 BRONCH (-) * 08/08/18 (-)MRSA, (-)Influenza A/B, (-)UTI * 08/08/18 BCx (-) * PHYSICAL EXAMINATION: GENERAL: Non-communicative, super morbid obese M, orally intubated, sedated on the Vent, looks comfortable, NAD HEENT: AT, NC, anicteric, ETT secure NECK: Supple, trach midline CHEST: Equal chest rise bilaterally, without dyspnea on observation = Vented HEART: Pulse RRR ABDOMEN: Soft / NT EXTREMITIES: Warm, dry SKIN: No rash, no diaphoresis, multiple Tattoos ID ASSESSMENT 32 yo Super Morbid Obese M admit with: 1. Sepsis w/Fevers - HCAP superimposed on probable ASP PNA 2. Leukocytosis - partial IV steroids demargination 3. PNA -- ASP PNA risk factors 4. Acute hypoxic respiratory failure 5. Obstructive Sleep Apnea/Obesity hypoventilation syndrome 6. 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 Continue current ABX and supportive care . Consultation Date/Type/Reason Admit Date/Time Aug 08, 2018 at 17:18 Initial Consult Date 08/09/18 Date/Time of Note DATE: 08/20/18 TIME: 11:06 Exam/Review of Systems Exam Vitals Vital Signs Date Temp Pulse Resp B/P (MAP) Pulse Ox O2 O2 Flow FiO2 Time Delivery Rate 08/20/18 61 18 118/61 95 10:30 (80) 08/20/18 Mechanical 10:00 Ventilator 08/20/18 40 08:00 08/20/18 99.3 08:00 Intake and Output 08/19/18 08/19/18 08/20/18 1515:00 23:00 07:00 IntakeIntake Total 1123.6 ml 1304.060 ml 1102.388 ml OutputOutput Total 825 ml 1000 ml 950 ml BalanceBalance 298.6 ml 304.060 ml 152.388 ml Results Result Diagram: 08/20/18 0420 08/20/18 0420 Results 24hrs Laboratory Tests Test 08/20/18 04:20 White Blood Count 13.7 H Red Blood Count 4.95 Hemoglobin 11.2 L Hematocrit 42.1 Mean Corpuscular Volume 85.1 Mean Corpuscular Hemoglobin 22.6 L Mean Corpuscular Hemoglobin Concent 26.6 L Red Cell Distribution Width 16.1 H Platelet Count 299 Mean Platelet Volume 8.9 Immature Granulocytes % 0.700 H Neutrophils % 83.4 H Lymphocytes % 7.2 L Monocytes % 8.6 Eosinophils % 0.0 Basophils % 0.1 Nucleated Red Blood Cells % 0.0 Immature Granulocytes # 0.100 H Neutrophils # 11.4 H Lymphocytes # 1.0 Monocytes # 1.2 H Eosinophils # 0.0 Basophils # 0.0 Nucleated Red Blood Cells # 0.0 Sodium Level 143 Potassium Level 4.5 Chloride Level 100 Carbon Dioxide Level 39 H Anion Gap 4 L Blood Urea Nitrogen 40 H Creatinine 0.75 Est Glomerular Filtrat Rate mL/min > 60 Glucose Level 151 Calcium Level 9.0 Medications Medication Current Medications IV Flush (NS 3 ml) 3 ml PER PROTOCOL IV ; Start 08/08/18 at 17:30 Ondansetron HCl (Zofran Inj) 4 mg Q6H PRN IV NAUSEA; Start 08/08/18 at 17:30 Haloperidol (Haldol) 5 mg PRN PRN IM AGGITATED Last administered on 08/16/18 08:32; Admin Dose 5 MG; Start 08/08/18 at 22:00 Propofol 100 ml @ 6.111 mls/ hr Q12H IV Last administered on 08/20/18 09:25; Admin Dose 48.888 MLS/HR; Start 08/09/18 at 05:30 Fentanyl 100 ml @ 2.5 mls/hr TITRATE IV Last administered on 08/20/18 00:34; Admin Dose 5 MLS/HR; Start 08/09/18 at 06:30 Enoxaparin Sodium (Lovenox) 40 mg Q12H SC Last administered on 08/20/18 08:57; Admin Dose 40 MG; Start 08/09/18 at 21:00 Famotidine (Pepcid) 20 mg BID GTB Last administered on 08/20/18 08:31; Admin Dose 20 MG; Start 08/12/18 at 09:00 Midazolam HCl 50 ml @ 1 mls/hr TITRATE IV Last administered on 08/20/18 04:26; Admin Dose 5 MLS/HR; Start 08/13/18 at 08:30 Methylprednisolone Sodium Succinate (Solu-Medrol) 40 mg Q6 IV Last administered on 08/20/18 05:52; Admin Dose 40 MG; Start 08/13/18 at 12:00 Scopolamine (Transderm-Scop) 1 patch Q72H TRANSDERM Last administered on 08/19/18 20:24; Admin Dose 1 PATCH; Start 08/13/18 at 20:00 Docusate Sodium (Colace Liquid Cup) 200 mg BID NGT Last administered on 08/20/18 08:31; Admin Dose 200 MG; Start 08/14/18 at 21:00 Polyethylene Glycol (Miralax) 17 gm DAILY GTB Last administered on 08/20/18 08:31; Admin Dose 17 GM; Start 08/17/18 at 09:00 Naphazoline HCl (Clear Eyes / Naphcon) 2 drop QID BOTH EYES Last administered on 08/20/18 08:31; Admin Dose 2 DROP; Start 08/16/18 at 18:14 Acetaminophen (Tylenol Liquid) 650 mg Q6H PRN NGT MILD PAIN(1-3)OR ELEVATED TEMP Last administered on 2/2/19at 20:24; Admin Dose 650 MG; Start 08/17/18 at 00:57 Colistimethate Sodium 75 mg/ Sodium Chloride 100 ml @ 200 mls/hr Q12 IVPB Last administered on 08/20/18 09:56; Admin Dose 200 MLS/HR; Start 08/18/18 at 14:00 Linezolid (Zyvox) 600 mg BID PO Last administered on 08/20/18 08:31; Admin Dose 600 MG; Start 08/18/18 at 21:00 GARCÍA JOHNSON NP Aug 20, 2018 11:09
--- NOTE | 2018-08-20 11:57 | PN ---
Date/Time of Note Date/Time of Note DATE: 08/20/18 TIME: 11:57 Assessment/Plan Lines/Catheters IV Catheter Type (from Nrsg): Peripheral IV Santiago in Place (from Nrsg): Yes Assessment/Plan Assessment/Plan Respiratory failure Patient is now agreeable to tracheostomy We will proceed with tracheostomy with an extra long tracheostomy tube is available Subjective 24 Hr Interval Summary Constitutional: no complaints, improved, ambulates, BM, flatus, urine output Pain Control: well controlled Exam/Review of Systems Vital Signs Vitals Vital Signs Date Temp Pulse Resp B/P (MAP) Pulse Ox O2 O2 Flow FiO2 Time Delivery Rate 08/20/18 61 18 118/61 95 10:30 (80) 08/20/18 Mechanical 10:00 Ventilator 08/20/18 40 08:00 08/20/18 99.3 08:00 Intake and Output 08/19/18 08/19/18 08/20/18 1515:00 23:00 07:00 IntakeIntake Total 1123.6 ml 1304.060 ml 1102.388 ml OutputOutput Total 825 ml 1000 ml 950 ml BalanceBalance 298.6 ml 304.060 ml 152.388 ml Exam Eyes: nl conjunctiva, EOMI, nl lids, nl sclera ENMT: nl external ears & nose, nl lips & teeth, nl nasal mucosa & septum, mucosa pink and moist Neck: supple, non-tender Respiratory: clear to auscultation, normal air movement Cardiovascular: regular rate and rhythm, nl pulses Gastrointestinal: soft, nl liver, spleen, non-tender Musculoskeletal: nl extremities to inspection, nl gait and stance Results Result Diagram: 08/20/1841908/20/18419 TIMMY DALAL MD Aug 20, 2018 11:57
[2018-08-21] VITALS (47 sets, daily range): BP systolic 95–120; BP diastolic 44–65; PULSE 57–94; RESP 18–23
[2018-08-21] MEDS: METHYLPREDNISOLONE 40 MG INJ IV SCH ×5 (00:31→23:12)
[2018-08-21] MEDS: MIDAZOLAM (DRIP) 50 mg/50 mL 50 ML IV SCH ×3 (00:31→21:38)
[2018-08-21] MEDS: PROPOFOL 100 ML IV SCH ×9 (01:39→21:38)
[2018-08-21] MEDS: ZYVOX 600 MG TAB PO SCH ×2 (08:10→21:05)
[2018-08-21] MEDS: NAPHAZOLINE 0.012% 15 ML OPH BOTH EYES SCH ×4 (08:10→21:05)
[2018-08-21] MEDS: COLISTIMETHATE 75 MG in SOD CHLORIDE 0.9% 100 ML IVPB SCH ×2 (08:10→21:05)
[2018-08-21] MEDS: FAMOTIDINE 20 MG TAB GTB SCH ×2 (08:10→21:05)
[2018-08-21] MEDS: POLYETHYLENE GLYCOL 17 GM PACKET GTB SCH (08:11)
[2018-08-21] MEDS: DOCUSATE SODIUM 10 MG/ML (10ML CUP) NGT SCH ×2 (08:11→21:00)
[2018-08-21] MEDS: ENOXAPARIN 40 MG/0.4 ML SYG SC SCH ×2 (08:23→21:15)
--- NOTE | 2018-08-21 09:30 | PN ---
Date/Time of Note Date/Time of Note DATE: 08/21/18 TIME: 09:26 Assessment/Plan VTE Prophylaxis Risk score (from Ns)>0 risk: 12 SCD applied (from Ns): No SCD contraindicated: other (no) Pharmacological prophylaxis: LMWH Lines/Catheters IV [facility] ([facility] PICC Line Central line still needed: Yes Urinary Cath still in place: Yes Reason Cath still needed: other (indicate) (intubated) Assessment/Plan Assessment/Plan 32M morbidly obese presents with hypercapnic respiratory failure and pneumonia. #Hypoxic and hypercapnic respiratory failure - Likely from obesity (ANDREW), exacerbated by likely pneumonia - Intubated 08/09 -has been on broad-spectrum antibiotics-and respiratory culture came back multidrug-resistant acinetobacter - For now continue on mechanical ventilation via pulmonary recommendations - Per family's wishes, will plan for tracheostomy when OR time and equipment available. - Will discuss with family CHANTAL about PEG as well. # Pneumonia- Bilateral patchy infiltrates on CXR,WBC 16 on admission - on broad-spectrum antibiotics for MDR actinobacter PNA - Monitor, continue current antibiotics, follow up pulmonary and follow-up ID recommendations. - Unfortunately patient exceeds the weight limit for CT scanner DVT: lovenox GI: Protonix IV Critical care time spent in patient care today equals 40 minutes. Result Diagram: 08/21/18 0345 08/21/18 0345 Results 24hrs Laboratory Tests Test 08/21/18 03:45 White Blood Count 18.5 #H Red Blood Count 4.91 Hemoglobin 11.2 L Hematocrit 41.6 L Mean Corpuscular Volume 84.7 Mean Corpuscular Hemoglobin 22.8 L Mean Corpuscular Hemoglobin Concent 26.9 L Red Cell Distribution Width 15.8 H Platelet Count 282 Mean Platelet Volume 10.6 H Immature Granulocytes % 0.800 H Neutrophils % 85.2 H Lymphocytes % 4.9 L Monocytes % 9.0 Eosinophils % 0.0 Basophils % 0.1 Nucleated Red Blood Cells % 0.0 Immature Granulocytes # 0.140 H Neutrophils # 15.7 H Lymphocytes # 0.9 Monocytes # 1.7 H Eosinophils # 0.0 Basophils # 0.0 Nucleated Red Blood Cells # 0.0 Sodium Level 140 Potassium Level 4.5 Chloride Level 99 Carbon Dioxide Level 38 H Anion Gap 3 L Blood Urea Nitrogen 37 H Creatinine 0.60 L Est Glomerular Filtrat Rate mL/min > 60 Glucose Level 142 Calcium Level 8.9 Phosphorus Level 4.8 Magnesium Level 2.1 Subjective 24 Hr Interval Summary Free Text/Dictation No acute overnight events. Patient intubated, sedated but wakes up on sedation. Exam/Review of Systems Exam Vitals Vital Signs Date Temp Pulse Resp B/P (MAP) Pulse Ox O2 O2 Flow FiO2 Time Delivery Rate 08/21/18 59 08:00 08/21/18 18 102/47 96 Mechanical 06:00 (65) Ventilator 08/21/18 40 05:40 08/21/18 98.2 04:00 Intake and Output 08/20/18 08/20/18 08/21/18 1515:00 23:00 07:00 IntakeIntake Total 1238.72023 ml 1064.4420 ml 810.388 ml OutputOutput Total 990 ml 990 ml 1010 ml BalanceBalance 248.10020 ml 74.4420 ml -199.612 ml Exam Gen: Morbidly obese man lying in bed intubated and sedated. Neck: Obese, no lymphadenopathy appreciated HEENT: Clear oropharynx, moist mucous membranes Card: Regular rate and rhythm, distant heart sounds Pulm: distant lung sounds. Abd: Morbidly obese, soft, nontender. Ext: Bilateral LE with redness and chronic venous stasis changes. Neuro: unable to fully assess Results Results 24hrs Laboratory Tests Test 08/21/18 03:45 White Blood Count 18.5 #H Red Blood Count 4.91 Hemoglobin 11.2 L Hematocrit 41.6 L Mean Corpuscular Volume 84.7 Mean Corpuscular Hemoglobin 22.8 L Mean Corpuscular Hemoglobin Concent 26.9 L Red Cell Distribution Width 15.8 H Platelet Count 282 Mean Platelet Volume 10.6 H Immature Granulocytes % 0.800 H Neutrophils % 85.2 H Lymphocytes % 4.9 L Monocytes % 9.0 Eosinophils % 0.0 Basophils % 0.1 Nucleated Red Blood Cells % 0.0 Immature Granulocytes # 0.140 H Neutrophils # 15.7 H Lymphocytes # 0.9 Monocytes # 1.7 H Eosinophils # 0.0 Basophils # 0.0 Nucleated Red Blood Cells # 0.0 Sodium Level 140 Potassium Level 4.5 Chloride Level 99 Carbon Dioxide Level 38 H Anion Gap 3 L Blood Urea Nitrogen 37 H Creatinine 0.60 L Est Glomerular Filtrat Rate mL/min > 60 Glucose Level 142 Calcium Level 8.9 Phosphorus Level 4.8 Magnesium Level 2.1 Medications Medication Current Medications IV Flush (NS 3 ml) 3 ml PER PROTOCOL IV ; Start 08/08/18 at 17:30 Ondansetron HCl (Zofran Inj) 4 mg Q6H PRN IV NAUSEA; Start 08/08/18 at 17:30 Haloperidol (Haldol) 5 mg PRN PRN IM AGGITATED Last administered on 08/16/18 08:32; Admin Dose 5 MG; Start 08/08/18 at 22:00 Propofol 100 ml @ 6.111 mls/ hr Q12H IV Last administered on 08/21/18 08:10; A dmin Dose 42.777 MLS/HR; Start 08/09/18 at 05:30 Fentanyl 100 ml @ 2.5 mls/hr TITRATE IV Last administered on 08/20/18 17:40; Admin Dose 5 MLS/HR; Start 08/09/18 at 06:30 Enoxaparin Sodium (Lovenox) 40 mg Q12H SC Last administered on 08/21/18 08:23; Admin Dose 40 MG; Start 08/09/18 at 21:00 Famotidine (Pepcid) 20 mg BID GTB Last administered on 08/21/18 08:10; Admin Dose 20 MG; Start 08/12/18 at 09:00 Midazolam HCl 50 ml @ 1 mls/hr TITRATE IV Last administered on 08/21/18 00:31; Admin Dose 5 MLS/HR; Start 08/13/18 at 08:30 Methylprednisolone Sodium Succinate (Solu-Medrol) 40 mg Q6 IV Last administered on 08/21/18 05:47; Admin Dose 40 MG; Start 08/13/18 at 12:00 Scopolamine (Transderm-Scop) 1 patch Q72H TRANSDERM Last administered on 08/19/18 20:24; Admin Dose 1 PATCH; Start 08/13/18 at 20:00 Docusate Sodium (Colace Liquid Cup) 200 mg BID NGT Last administered on 08/20/18 21:15; Admin Dose 200 MG; Start 08/14/18 at 21:00 Polyethylene Glycol (Miralax) 17 gm DAILY GTB Last administered on 08/20/18 08:31; Admin Dose 17 GM; Start 08/17/18 at 09:00 Naphazoline HCl (Clear Eyes / Naphcon) 2 drop QID BOTH EYES Last administered on 08/21/18 08:10; Admin Dose 2 DROP; Start 08/16/18 at 18:14 Acetaminophen (Tylenol Liquid) 650 mg Q6H PRN NGT MILD PAIN(1-3)OR ELEVATED TEMP Last administered on 08/19/18 20:24; Admin Dose 650 MG; Start 08/17/18 at 00:57 Colistimethate Sodium 75 mg/ Sodium Chloride 100 ml @ 200 mls/hr Q12 IVPB Last administered on 08/21/18 08:10; Admin Dose 200 MLS/HR; Start 08/18/18 at 14:00 Linezolid (Zyvox) 600 mg BID PO Last administered on 08/21/18 08:10; Admin Dose 600 MG; Start 08/18/18 at 21:00 ELIANE PEARSON MD Aug 21, 2018 09:30
--- NOTE | 2018-08-21 09:41 | CONS ---
Assessment/Plan Assessment/Plan Assessment/Plan (Daily) Chest x-ray from late yesterday afternoon shows improvement in pulmonary edema. Ventilator setting; AC of 18, tidal volume 500, PEEP of 8, 40% FiO2. Patient is currently on propofol 30 mics per kilogram per minute, Versed 6 mg/h, fentanyl 50 mics per hour. Assessment and recommendations; 1. Patient admitted with respiratory failure due to recurrent severe hypercapnia. Patient has failed CPAP trials. With persistent marked elevation in PCO2 level. 2. Underlying obesity/hypoventilation syndrome. 3. Interstitial lung disease, possibly sarcoidosis. Patient on empiric Solu- Medrol with significant radiological improvement. However chest x-ray improvement possibly also could be related to improvement in pulmonary edema as well as pneumonia. 4. Acinetobacter isolated from sputum. 5. Mild anemia. 6. Mild leukocytosis, possibly a steroid response. Continue current supportive care. Patient scheduled for tracheostomy. Consultation Date/Type/Reason Admit Date/Time Aug 08, 2018 at 17:18 Initial Consult Date 08/09/18 Type of Consult Pulmonary/critical care Consult dictated by mistake on last admission chart review. Please refer to last admission for consult note. Date/Time of Note DATE: 08/21/18 TIME: 09:38 24 HR Interval Summary Free Text/Dictation Patient's condition remains critical. Scheduled for tracheostomy. Patient has however remained hemodynamically stable. General exam; young male, morbidly obese, orally intubated, sedated, currently in no distress. Exam/Review of Systems Exam Vitals Vital Signs Date Temp Pulse Resp B/P (MAP) Pulse Ox O2 O2 Flow FiO2 Time Delivery Rate 08/21/18 59 08:00 08/21/18 18 102/47 96 Mechanical 06:00 (65) Ventilator 08/21/18 40 05:40 08/21/18 98.2 04:00 Intake and Output 08/20/18 08/20/18 08/21/18 1515:00 23:00 07:00 IntakeIntake Total 1238.44593 ml 1064.4420 ml 810.388 ml OutputOutput Total 990 ml 990 ml 1010 ml BalanceBalance 248.02318 ml 74.4420 ml -199.612 ml Exam H EENT exam; supple neck, JVD difficult to see because of short neck. No neck masses. Patient has fair dentition. Orally intubated. Pupils are small bilaterally. Chest exam; diminished breath sounds bilaterally. S1-S2 audible, no murmurs. Regular rhythm. Abdomen exam; soft, protuberant. Bowel sounds audible. Organomegaly difficult to assess. Extremity exam; no peripheral edema or clubbing. [employer] exam; patient is sedated. Results Result Diagram: 08/21/18 0345 08/21/18 0345 Results 24hrs Laboratory Tests Test 08/21/18 03:45 White Blood Count 18.5 #H Red Blood Count 4.91 Hemoglobin 11.2 L Hematocrit 41.6 L Mean Corpuscular Volume 84.7 Mean Corpuscular Hemoglobin 22.8 L Mean Corpuscular Hemoglobin Concent 26.9 L Red Cell Distribution Width 15.8 H Platelet Count 282 Mean Platelet Volume 10.6 H Immature Granulocytes % 0.800 H Neutrophils % 85.2 H Lymphocytes % 4.9 L Monocytes % 9.0 Eosinophils % 0.0 Basophils % 0.1 Nucleated Red Blood Cells % 0.0 Immature Granulocytes # 0.140 H Neutrophils # 15.7 H Lymphocytes # 0.9 Monocytes # 1.7 H Eosinophils # 0.0 Basophils # 0.0 Nucleated Red Blood Cells # 0.0 Sodium Level 140 Potassium Level 4.5 Chloride Level 99 Carbon Dioxide Level 38 H Anion Gap 3 L Blood Urea Nitrogen 37 H Creatinine 0.60 L Est Glomerular Filtrat Rate mL/min > 60 Glucose Level 142 Calcium Level 8.9 Phosphorus Level 4.8 Magnesium Level 2.1 Medications Medication Current Medications IV Flush (NS 3 ml) 3 ml PER PROTOCOL IV ; Start 08/08/18 at 17:30 Ondansetron HCl (Zofran Inj) 4 mg Q6H PRN IV NAUSEA; Start 08/08/18 at 17:30 Haloperidol (Haldol) 5 mg PRN PRN IM AGGITATED Last administered on 08/16/18at 08:32; Admin Dose 5 MG; Start 08/08/18 at 22:00 Propofol 100 ml @ 6.111 mls/ hr Q12H IV Last administered on 08/21/18at 08:10; Admin Dose 42.777 MLS/HR; Start 08/09/18 at 05:30 Fentanyl 100 ml @ 2.5 mls/hr TITRATE IV Last administered on 08/20/18at 17:40; Admin Dose 5 MLS/HR; Start 08/09/18 at 06:30 Enoxaparin Sodium (Lovenox) 40 mg Q12H SC Last administered on 08/21/18 08:23; Admin Dose 40 MG; Start 08/09/18 at 21:00 Famotidine (Pepcid) 20 mg BID GTB Last administered on 08/21/18 08:10; Admin Dose 20 MG; Start 08/12/18 at 09:00 Midazolam HCl 50 ml @ 1 mls/hr TITRATE IV Last administered on 08/21/18 00:31; Admin Dose 5 MLS/HR; Start 08/13/18 at 08:30 Methylprednisolone Sodium Succinate (Solu-Medrol) 40 mg Q6 IV Last administered on 08/21/18 05:47; Admin Dose 40 MG; Start 08/13/18 at 12:00 Scopolamine (Transderm-Scop) 1 patch Q72H TRANSDERM Last administered on 08/19/18 20:24; Admin Dose 1 PATCH; Start 08/13/18 at 20:00 Docusate Sodium (Colace Liquid Cup) 200 mg BID NGT Last administered on 21:15; Admin Dose 200 MG; Start 08/14/18 at 21:00 Polyethylene Glycol (Miralax) 17 gm DAILY GTB Last administered on 08/20/18 08:31; Admin Dose 17 GM; Start 08/17/18 at 09:00 Naphazoline HCl (Clear Eyes / Naphcon) 2 drop QID BOTH EYES Last administered on 08/21/18 08:10; Admin Dose 2 DROP; Start 08/16/18 at 18:14 Acetaminophen (Tylenol Liquid) 650 mg Q6H PRN NGT MILD PAIN(1-3)OR ELEVATED TEMP Last administered on 08/19/18 20:24; Admin Dose 650 MG; Start 08/17/18 at 00:57 Colistimethate Sodium 75 mg/ Sodium Chloride 100 ml @ 200 mls/hr Q12 IVPB Last administered on 08/21/18 08:10; Admin Dose 200 MLS/HR; Start 08/18/18 at 14:00 Linezolid (Zyvox) 600 mg BID PO Last administered on 08/21/18 08:10; Admin Dose 600 MG; Start 08/18/18 at 21:00 TAVIA KING Aug 21, 2018 09:41
--- NOTE | 2018-08-21 12:30 | PN ---
Date/Time of Note Date/Time of Note DATE: 08/21/18 TIME: 12:30 Assessment/Plan Lines/Catheters IV Catheter Type (from Nrsg): PICC Line Santiago in Place (from Nrsg): Yes Assessment/Plan Assessment/Plan Respiratory failure Patient is now agreeable to tracheostomy We will proceed with tracheostomy with an extra long tracheostomy tube is available Subjective 24 Hr Interval Summary Constitutional: improved Pain Control: mild Exam/Review of Systems Vital Signs Vitals Vital Signs Date Temp Pulse Resp B/P (MAP) Pulse Ox O2 O2 Flow FiO2 Time Delivery Rate 08/21/18 64 12:00 08/21/18 93 40 11:40 08/21/18 115/55 Mechanical 10:00 (75) Ventilator 08/21/18 99.6 08:00 Intake and Output 08/20/18 08/20/18 08/21/18 1515:00 23:00 07:00 IntakeIntake Total 1238.40896 ml 1064.4420 ml 810.388 ml OutputOutput Total 990 ml 990 ml 1085 ml BalanceBalance 248.41776 ml 74.4420 ml -274.612 ml Exam Eyes: nl conjunctiva, EOMI, nl lids, nl sclera ENMT: nl external ears & nose, nl lips & teeth, nl nasal mucosa & septum, mucosa pink and moist Neck: supple, non-tender Respiratory: clear to auscultation, normal air movement Cardiovascular: regular rate and rhythm, nl pulses Gastrointestinal: soft, nl liver, spleen, non-tender Results Result Diagram: 08/21/18 0345 08/21/18 0345 TIMMY DALAL MD Aug 21, 2018 12:30
--- NOTE | 2018-08-21 12:56 | CONS ---
Assessment/Plan Assessment/Plan Hospital Course (Demo Recall) No acute events patient is comfortable on vent. Had been afebrile, he is on high PEEP and FiO2 of 80 WBC 18.5 platelets 282 neutrophils 85.2 BUN 37 creatinine 0.60 Antimicrobials: Colistin, Zyvox Sputum culture growing multidrug-resistant Acinetobacter baumanii Indwelling: Endotracheal tube NG tube Santiago catheter, PICC line Physical examination: This is a morbidly obese well-developed middle-aged man who is intubated sedated in no distress. Head atraumatic normocephalic, bucal mucosa dry, neck is obese. Chest rise symmetrical breath sounds diminished. Heart: S1-S2. Abdomen obese distended bowel sounds hypoactive. Extremities with edema Assessment: 1. Acute hypoxemic respiratory failure/ pneumonia 2. Morbid obesity 3. Sleep apnea with hypoventilation syndrome 4. Leukocytosis, possibly steroids induced Plan: Clinically unchanged, on appropriate antibiotics, repeat blood cultures negative, pending tracheostomy, follow labs in a.m. DEBORAH RN Consultation Date/Type/Reason Admit Date/Time Aug 08, 2018 at 17:18 Initial Consult Date 08/09/18 Type of Consult ID Date/Time of Note DATE: 08/21/18 TIME: 12:54 Exam/Review of Systems Exam Vitals Vital Signs Date Temp Pulse Resp B/P (MAP) Pulse Ox O2 O2 Flow FiO2 Time Delivery Rate 08/21/18 62 18 103/46 94 12:30 (65) 08/21/18 99.1 Mechanical 12:00 Ventilator 08/21/18 40 11:40 Intake and Output 08/20/18 08/20/18 08/21/18 1515:00 23:00 07:00 IntakeIntake Total 1238.28493 ml 1064.4420 ml 810.388 ml OutputOutput Total 990 ml 990 ml 1085 ml BalanceBalance 248.46655 ml 74.4420 ml -274.612 ml Results Result Diagram: 08/21/18 0345 08/21/18 0345 Results 24hrs Laboratory Tests Test 08/21/18 03:45 White Blood Count 18.5 #H Red Blood Count 4.91 Hemoglobin 11.2 L Hematocrit 41.6 L Mean Corpuscular Volume 84.7 Mean Corpuscular Hemoglobin 22.8 L Mean Corpuscular Hemoglobin Concent 26.9 L Red Cell Distribution Width 15.8 H Platelet Count 282 Mean Platelet Volume 10.6 H Immature Granulocytes % 0.800 H Neutrophils % 85.2 H Lymphocytes % 4.9 L Monocytes % 9.0 Eosinophils % 0.0 Basophils % 0.1 Nucleated Red Blood Cells % 0.0 Immature Granulocytes # 0.140 H Neutrophils # 15.7 H Lymphocytes # 0.9 Monocytes # 1.7 H Eosinophils # 0.0 Basophils # 0.0 Nucleated Red Blood Cells # 0.0 Sodium Level 140 Potassium Level 4.5 Chloride Level 99 Carbon Dioxide Level 38 H Anion Gap 3 L Blood Urea Nitrogen 37 H Creatinine 0.60 L Est Glomerular Filtrat Rate mL/min > 60 Glucose Level 142 Calcium Level 8.9 Phosphorus Level 4.8 Magnesium Level 2.1 Medications Medication Current Medications IV Flush (NS 3 ml) 3 ml PER PROTOCOL IV ; Start 08/08/18 at 17:30 Ondansetron HCl (Zofran Inj) 4 mg Q6H PRN IV NAUSEA; Start 08/08/18 at 17:30 Haloperidol (Haldol) 5 mg PRN PRN IM AGGITATED Last administered on 08/16/18 08:32; Admin Dose 5 MG; Start 08/08/18 at 22:00 Propofol 100 ml @ 6.111 mls/ hr Q12H IV Last administered on 08/21/18 11:14; Admin Dose 36.666 MLS/HR; Start 08/09/18 at 05:30 Fentanyl 100 ml @ 2.5 mls/hr TITRATE IV Last administered on 08/20/18 17:40; Admin Dose 5 MLS/HR; Start 08/09/18 at 06:30 Enoxaparin Sodium (Lovenox) 40 mg Q12H SC Last administered on 08/21/18 08:23; Admin Dose 40 MG; Start 08/09/18 at 21:00 Famotidine (Pepcid) 20 mg BID GTB Last administered on 08/21/18 08:10; Admin Dose 20 MG; Start 08/12/18 at 09:00 Midazolam HCl 50 ml @ 1 mls/hr TITRATE IV Last administered on 08/21/18 00:31; Admin Dose 5 MLS/HR; Start 08/13/18 at 08:30 Methylprednisolone Sodium Succinate (Solu-Medrol) 40 mg Q6 IV Last administered on 08/21/18 05:47; Admin Dose 40 MG; Start 08/13/18 at 12:00 Scopolamine (Transderm-Scop) 1 patch Q72H TRANSDERM Last administered on 20:24; Admin Dose 1 PATCH; Start 08/13/18 at 20:00 Docusate Sodium (Colace Liquid Cup) 200 mg BID NGT Last administered on 08/20/18 21:15; Admin Dose 200 MG; Start 08/14/18 at 21:00 Polyethylene Glycol (Miralax) 17 gm DAILY GTB Last administered on 08/20/18 08:31; Admin Dose 17 GM; Start 08/17/18 at 09:00 Naphazoline HCl (Clear Eyes / Naphcon) 2 drop QID BOTH EYES Last administered on 08/21/18 08:10; Admin Dose 2 DROP; Start 08/16/18 at 18:14 Acetaminophen (Tylenol Liquid) 650 mg Q6H PRN NGT MILD PAIN(1-3)OR ELEVATED TEMP Last administered on 08/19/18 20:24; Admin Dose 650 MG; Start 08/17/18 at 00:57 Colistimethate Sodium 75 mg/ Sodium Chloride 100 ml @ 200 mls/hr Q12 IVPB Last administered on 08/21/18 08:10; Admin Dose 200 MLS/HR; Start 08/18/18 at 14:00 Linezolid (Zyvox) 600 mg BID PO Last administered on 08/21/18 08:10; Admin Dose 600 MG; Start 08/18/18 at 21:00 JOCELYN VILLALTA NP Aug 21, 2018 12:56
[2018-08-21] MEDS: FENTAnyl (DRIP) 1000 mcg/100mL 100 ML IV SCH (16:25)
[2018-08-22] VITALS (35 sets, daily range): BP systolic 95–130; BP diastolic 47–67; PULSE 63–79; RESP 18–26
[2018-08-22] MEDS: PROPOFOL 100 ML IV SCH ×10 (00:21→23:12)
[2018-08-22] MEDS: METHYLPREDNISOLONE 40 MG INJ IV SCH ×4 (05:27→23:11)
[2018-08-22] MEDS: MIDAZOLAM (DRIP) 50 mg/50 mL 50 ML IV SCH ×3 (06:26→22:03)
[2018-08-22] MEDS ORDERED: ASPIRIN 300 MG SUPP PR ONE (08:01)
[2018-08-22] MEDS: ENOXAPARIN 40 MG/0.4 ML SYG SC SCH ×3 (09:00→20:52)
--- NOTE | 2018-08-22 09:04 | CONS ---
Assessment/Plan Assessment/Plan Assessment/Plan (Daily) Chest x-ray showing improving pulmonary edema as well as interstitial opacities. Assessment recommendations; 1. Patient admitted with severe hypercapnic respiratory failure and has failed multiple weaning trials from ventilator. 2. Possibly underlying interval stage lung disease, possibly sarcoidosis. Patient on Solu-Medrol empirically with radiological improvement. 3. Bilateral recurrent pneumonia ,Acinetobacter cultured from sputum, patient currently on appropriate antimicrobial regimen. 4. Leukocytosis, likely steroid response. 5. Chronic type II respiratory failure with history of sleep apnea. Continue current supportive care. Patient scheduled for tracheostomy today. Consultation Date/Type/Reason Admit Date/Time Aug 08, 2018 at 17:18 Initial Consult Date 08/09/18 Type of Consult Pulmonary/critical care Consult dictated by mistake on last admission chart review. Please refer to last admission for consult note. Date/Time of Note DATE: 08/22/18 TIME: 09:02 24 HR Interval Summary Free Text/Dictation Patient's condition remains critical. Patient however has remained hemodynamically stable. Scheduled for tracheostomy. General exam; young male, morbidly obese, orally intubated, sedated, currently in no distress. Exam/Review of Systems Exam Vitals Vital Signs Date Temp Pulse Resp B/P (MAP) Pulse Ox O2 O2 Flow FiO2 Time Delivery Rate 08/22/18 66 18 107/57 99 Mechanical 06:00 (74) Ventilator 08/22/18 40 05:28 08/22/18 99.6 04:00 Intake and Output 08/21/18 08/21/18 08/22/18 1515:00 23:00 07:00 IntakeIntake Total 898.238 ml 1162.074 ml 347.334 ml OutputOutput Total 870 ml 1055 ml 1095 ml BalanceBalance 28.238 ml 107.074 ml -747.666 ml Exam H EENT exam; supple neck, JVD difficult to see because of shortening. Orally intubated. Patient has fair dentition. No neck masses. Chest exam; diminished breath sounds throughout. S1-S2 audible, no murmurs. Regular rhythm. Abdomen exam; soft, protuberant. Organomegaly difficult to assess. Bowel sounds audible. Extremity exam; no peripheral edema. ATTACHER exam; patient is sedated. Results Result Diagram: 08/22/180 08/22/18 0400 Results 24hrs Laboratory Tests Test 08/22/18 04:00 White Blood Count 17.1 H Red Blood Count 4.79 Hemoglobin 10.8 L Hematocrit 40.4 L Mean Corpuscular Volume 84.3 Mean Corpuscular Hemoglobin 22.5 L Mean Corpuscular Hemoglobin Concent 26.7 L Red Cell Distribution Width 15.9 H Platelet Count 313 Mean Platelet Volume 9.6 Immature Granulocytes % 0.900 H Neutrophils % 86.3 H Lymphocytes % 6.2 L Monocytes % 6.5 Eosinophils % 0.0 Basophils % 0.1 Nucleated Red Blood Cells % 0.0 Immature Granulocytes # 0.150 H Neutrophils # 14.8 H Lymphocytes # 1.1 Monocytes # 1.1 H Eosinophils # 0.0 Basophils # 0.0 Nucleated Red Blood Cells # 0.0 Sodium Level 140 Potassium Level 4.5 Chloride Level 99 Carbon Dioxide Level 40 H Anion Gap 1 L Blood Urea Nitrogen 36 H Creatinine 0.62 Est Glomerular Filtrat Rate mL/min > 60 Glucose Level 125 Calcium Level 9.1 Phosphorus Level 3.9 Magnesium Level 2.1 Medications Medication Current Medications IV Flush (NS 3 ml) 3 ml PER PROTOCOL IV ; Start 08/08/18 at 17:30 Ondansetron HCl (Zofran Inj) 4 mg Q6H PRN IV NAUSEA; Start 08/08/18 at 17:30 Haloperidol (Haldol) 5 mg PRN PRN IM AGGITATED Last administered on 08/16/18at 08:32; Admin Dose 5 MG; Start 08/08/18 at 22:00 Propofol 100 ml @ 6.111 mls/ hr Q12H IV Last administered on 08/22/18at 08:07; Admin Dose 42.777 MLS/HR; Start 08/09/18 at 05:30 Fentanyl 100 ml @ 2.5 mls/hr TITRATE IV Last administered on 08/21/18at 16:25; Admin Dose 5 MLS/HR; Start 08/09/18 at 06:30 Enoxaparin Sodium (Lovenox) 40 mg Q12H SC Last administered on 08/21/18at 21:15; Admin Dose 40 MG; Start 08/09/18 at 21:00 Famotidine (Pepcid) 20 mg BID GTB Last administered on 08/21/18at 21:05; Admin Dose 20 MG; Start 08/12/18 at 09:00 Midazolam HCl 50 ml @ 1 mls/hr TITRATE IV Last administered on 08/22/18 06:26; Admin Dose 6 MLS/HR; Start 08/13/18 at 08:30 Methylprednisolone Sodium Succinate (Solu-Medrol) 40 mg Q6 IV Last administered on 08/22/18 05:27; Admin Dose 40 MG; Start 08/13/18 at 12:00 Scopolamine (Transderm-Scop) 1 patch Q72H TRANSDERM Last administered on 08/19/18 20:24; Admin Dose 1 PATCH; Start 08/13/18 at 20:00 Docusate Sodium (Colace Liquid Cup) 200 mg BID NGT Last administered on 08/20/18 21:15; Admin Dose 200 MG; Start 08/14/18 at 21:00 Polyethylene Glycol (Miralax) 17 gm DAILY GTB Last administered on 08/20/18 08:31; Admin Dose 17 GM; Start 08/17/18 at 09:00 Naphazoline HCl (Clear Eyes / Naphcon) 2 drop QID BOTH EYES Last administered on 08/21/18 21:05; Admin Dose 2 DROP; Start 08/16/18 at 18:14 Acetaminophen (Tylenol Liquid) 650 mg Q6H PRN NGT MILD PAIN(1-3)OR ELEVATED TEMP Last administered on 08/19/18 20:24; Admin Dose 650 MG; Start 08/17/18 at 00:57 Colistimethate Sodium 75 mg/ Sodium Chloride 100 ml @ 200 mls/hr Q12 IVPB Last administered on 08/21/18 21:05; Admin Dose 200 MLS/HR; Start 08/18/18 at 14:00 Linezolid (Zyvox) 600 mg BID PO Last administered on 08/21/18 21:05; Admin Dose 600 MG; Start 08/18/18 at 21:00 TAVIA KING Aug 22, 2018 09:04
[2018-08-22] MEDS: DOCUSATE SODIUM 10 MG/ML (10ML CUP) NGT SCH ×2 (09:34→20:47)
[2018-08-22] MEDS: POLYETHYLENE GLYCOL 17 GM PACKET GTB SCH (09:35)
[2018-08-22] MEDS: FAMOTIDINE 20 MG TAB GTB SCH ×2 (09:35→20:46)
[2018-08-22] MEDS: ZYVOX 600 MG TAB PO SCH (09:35)
[2018-08-22] MEDS: ACETAMINOPHEN 650MG/20.3ML CUP NGT PRN (09:35)
[2018-08-22] MEDS: NAPHAZOLINE 0.012% 15 ML OPH BOTH EYES SCH ×4 (09:35→20:46)
[2018-08-22] MEDS: COLISTIMETHATE 75 MG in SOD CHLORIDE 0.9% 100 ML IVPB SCH ×2 (09:51→20:46)
--- NOTE | 2018-08-22 09:54 | PN ---
Date/Time of Note Date/Time of Note DATE: 08/22/18 TIME: 09:52 Assessment/Plan VTE Prophylaxis Risk score (from Ns)>0 risk: 12 SCD applied (from Ns): No SCD contraindicated: other (no) Pharmacological prophylaxis: LMWH Lines/Catheters IV Catheter Type (from [facility] PICC Line Central line still needed: Yes Urinary Cath still in place: Yes Reason Cath still needed: other (indicate) (intubated) Assessment/Plan Assessment/Plan 32M morbidly obese presents with hypercapnic respiratory failure and pneumonia. #Hypoxic and hypercapnic respiratory failure - Likely from obesity (ANDREW), exacerbated by likely pneumonia - Intubated 08/09 -has been on broad-spectrum antibiotics-and respiratory culture came back multidrug-resistant acinetobacter - For now continue on mechanical ventilation via pulmonary recommendations - Per family's wishes, will plan for tracheostomy and PEG when OR time and equipment available. # Pneumonia- Bilateral patchy infiltrates on CXR,WBC 16 on admission - on broad-spectrum antibiotics for MDR actinobacter PNA - Monitor, continue current antibiotics, follow up pulmonary and follow-up ID re commendations. - Unfortunately patient exceeds the weight limit for CT scanner DVT: lovenox GI: Protonix IV Critical care time spent in patient care today equals 40 minutes. Result Diagram: 08/22/18 0400 08/22/18 0400 Results 24hrs Laboratory Tests Test 08/22/18 04:00 White Blood Count 17.1 H Red Blood Count 4.79 Hemoglobin 10.8 L Hematocrit 40.4 L Mean Corpuscular Volume 84.3 Mean Corpuscular Hemoglobin 22.5 L Mean Corpuscular Hemoglobin Concent 26.7 L Red Cell Distribution Width 15.9 H Platelet Count 313 Mean Platelet Volume 9.6 Immature Granulocytes % 0.900 H Neutrophils % 86.3 H Lymphocytes % 6.2 L Monocytes % 6.5 Eosinophils % 0.0 Basophils % 0.1 Nucleated Red Blood Cells % 0.0 Immature Granulocytes # 0.150 H Neutrophils # 14.8 H Lymphocytes # 1.1 Monocytes # 1.1 H Eosinophils # 0.0 Basophils # 0.0 Nucleated Red Blood Cells # 0.0 Sodium Level 140 Potassium Level 4.5 Chloride Level 99 Carbon Dioxide Level 40 H Anion Gap 1 L Blood Urea Nitrogen 36 H Creatinine 0.62 Est Glomerular Filtrat Rate mL/min > 60 Glucose Level 125 Calcium Level 9.1 Phosphorus Level 3.9 Magnesium Level 2.1 Subjective 24 Hr Interval Summary Free Text/Dictation No acute overnight events. Patient waking up off sedation. Mother and brother Sukumar at bedside. Exam/Review of Systems Exam Vitals Vital Signs Date Temp Pulse Resp B/P (MAP) Pulse Ox O2 O2 Flow FiO2 Time Delivery Rate 08/22/18 100.0 09:35 08/22/18 71 08:00 08/22/18 18 107/57 99 [employer] 06:00 (74) l Ventilato r 08/22/18 40 05:28 Intake and Output 08/21/18 08/21/18 08/22/18 1515:00 23:00 07:00 IntakeIntake Total 898.238 ml 1162.074 ml 347.334 ml OutputOutput Total 870 ml 1055 ml 1095 ml BalanceBalance 28.238 ml 107.074 ml -747.666 ml Exam Gen: Morbidly obese man lying in bed intubated and sedated. Neck: Obese, no lymphadenopathy appreciated HEENT: Clear oropharynx, moist mucous membranes Card: Regular rate and rhythm, distant heart sounds Pulm: distant lung sounds. Abd: Morbidly obese, soft, nontender. Ext: LE edema and redness have resolved. Results Results 24hrs Laboratory Tests Test 08/22/18 04:00 White Blood Count 17.1 H Red Blood Count 4.79 Hemoglobin 10.8 L Hematocrit 40.4 L Mean Corpuscular Volume 84.3 Mean Corpuscular Hemoglobin 22.5 L Mean Corpuscular Hemoglobin Concent 26.7 L Red Cell Distribution Width 15.9 H Platelet Count 313 Mean Platelet Volume 9.6 Immature Granulocytes % 0.900 H Neutrophils % 86.3 H Lymphocytes % 6.2 L Monocytes % 6.5 Eosinophils % 0.0 Basophils % 0.1 Nucleated Red Blood Cells % 0.0 Immature Granulocytes # 0.150 H Neutrophils # 14.8 H Lymphocytes # 1.1 Monocytes # 1.1 H Eosinophils # 0.0 Basophils # 0.0 Nucleated Red Blood Cells # 0.0 Sodium Level 140 Potassium Level 4.5 Chloride Level 99 Carbon Dioxide Level 40 H Anion Gap 1 L Blood Urea Nitrogen 36 H Creatinine 0.62 Est Glomerular Filtrat Rate mL/min > 60 Glucose Level 125 Calcium Level 9.1 Phosphorus Level 3.9 Magnesium Level 2.1 Medications Medication Current Medications IV Flush (NS 3 ml) 3 ml PER PROTOCOL IV ; Start 08/08/18 at 17:30 Ondansetron HCl (Zofran Inj) 4 mg Q6H PRN IV NAUSEA; Start 08/08/18 at 17:30 Haloperidol (Haldol) 5 mg PRN PRN IM AGGITATED Last administered on 08/16/18 08:32; Admin Dose 5 MG; Start 08/08/18 at 22:00 Propofol 100 ml @ 6.111 mls/ hr Q12H IV Last administered on 08/22/18 08:07; Admin Dose 42.777 MLS/HR; Start 08/09/18 at 05:30 Fentanyl 100 ml @ 2.5 mls/hr TITRATE IV Last administered on 08/21/18 16:25; Admin Dose 5 MLS/HR; Start 08/09/18 at 06:30 Enoxaparin Sodium (Lovenox) 40 mg Q12H SC Last administered on 08/21/18 21:15; Admin Dose 40 MG; Start 08/09/18 at 21:00 Famotidine (Pepcid) 20 mg BID GTB Last administered on 08/22/18 09:35; Admin Dose 20 MG; Start 08/12/18 at 09:00 Midazolam HCl 50 ml @ 1 mls/hr TITRATE IV Last administered on 08/22/18 06:26; Admin Dose 6 MLS/HR; Start 08/13/18 at 08:30 Methylprednisolone Sodium Succinate (Solu-Medrol) 40 mg Q6 IV Last administered on 08/22/18 05:27; Admin Dose 40 MG; Start 08/13/18 at 12:00 Scopolamine (Transderm-Scop) 1 patch Q72H TRANSDERM Last administered on 08/19/18 20:24; Admin Dose 1 PATCH; Start 08/13/18 at 20:00 Docusate Sodium (Colace Liquid Cup) 200 mg BID NGT Last administered on 08/22/18 09:34; Admin Dose 200 MG; Start 08/14/18 at 21:00 Polyethylene Glycol (Miralax) 17 gm DAILY GTB Last administered on 08/22/18 09:35; Admin Dose 17 GM; Start 08/17/18 at 09:00 Naphazoline HCl (Clear Eyes / Naphcon) 2 drop QID BOTH EYES Last administered on 08/22/18 09:35; Admin Dose 2 DROP; Start 08/16/18 at 18:14 Acetaminophen (Tylenol Liquid) 650 mg Q6H PRN NGT MILD PAIN(1-3)OR ELEVATED TEMP Last administered on 08/22/18 09:35; Admin Dose 650 MG; Start 08/17/18 at 00:57 Colistimethate Sodium 75 mg/ Sodium Chloride 100 ml @ 200 mls/hr Q12 IVPB Last administered on 08/22/18 09:51; Admin Dose 200 MLS/HR; Start 08/18/18 at 14:00 Linezolid (Zyvox) 600 mg BID PO Last administered on 08/22/18 09:35; Admin Dose 600 MG; Start 08/18/18 at 21:00 ELIANE PEARSON MD Aug 22, 2018 09:54
--- NOTE | 2018-08-22 12:14 | PN ---
Date/Time of Note Date/Time of Note DATE: 08/22/18 TIME: 12:13 Assessment/Plan Lines/Catheters IV Catheter Type (from Nrsg): PICC Line Santiago in Place (from Nrsg): Yes Assessment/Plan Assessment/Plan El failure Unable to come off the ventilator Plan for tracheostomy on Subjective 24 Hr Interval Summary Constitutional: improved Pain Control: mild Exam/Review of Systems Vital Signs Vitals Vital Signs Date Temp Pulse Resp B/P (MAP) Pulse Ox O2 O2 Flow FiO2 Time Delivery Rate 08/22/18 63 20 107/59 95 Mechanical 11:00 (75) Ventilator 08/22/18 40 10:35 08/22/18 99.5 10:30 Intake and Output 08/21/18 08/21/18 08/22/18 1515:00 23:00 07:00 IntakeIntake Total 898.238 ml 1162.074 ml 398.334 ml OutputOutput Total 870 ml 1055 ml 1095 ml BalanceBalance 28.238 ml 107.074 ml -696.666 ml Exam ENMT: nl external ears & nose, nl lips & teeth, nl nasal mucosa & septum, mucosa pink and moist Neck: supple, non-tender Respiratory: clear to auscultation, normal air movement Cardiovascular: regular rate and rhythm, nl pulses Gastrointestinal: soft, nl liver, spleen, non-tender Musculoskeletal: nl extremities to inspection, nl gait and stance Results Result Diagram: 08/22/1839908/22/18399 TIMMY DALAL MD Aug 22, 2018 12:14
[2018-08-22] MEDS: FENTAnyl (DRIP) 1000 mcg/100mL 100 ML IV SCH (12:47)
--- NOTE | 2018-08-22 14:13 | CONS ---
Assessment/Plan Assessment/Plan Hospital Course (Demo Recall) Continues to have low grade temps, comfortable on vent Antimicrobials: Colistin, Zyvox Sputum culture growing multidrug-resistant Acinetobacter baumanii Indwelling: Endotracheal tube NG tube Santiago catheter, PICC line Physical examination: This is a morbidly obese well-developed middle-aged man who is intubated sedated in no distress. Head atraumatic normocephalic, bucal mucosa dry, neck is obese. Chest rise symmetrical breath sounds diminished. Heart: S1-S2. Abdomen obese distended bowel sounds hypoactive. Extremities with edema Assessment: 1. Acute hypoxemic respiratory failure/ pneumonia 2. Morbid obesity 3. Sleep apnea with hypoventilation syndrome 4. Leukocytosis, possibly steroids induced Plan: Clinically unchanged, scheduled for tracheostomy today, continue Colistin, dc Zyvox, reculture for T 101 DW RN Consultation Date/Type/Reason Admit Date/Time Aug 08, 2018 at 17:18 Initial Consult Date 08/09/18 Type of Consult ID Date/Time of Note DATE: 08/22/18 TIME: 14:11 Exam/Review of Systems Exam Vitals Vital Signs Date Temp Pulse Resp B/P (MAP) Pulse Ox O2 O2 Flow FiO2 Time Delivery Rate 08/22/18 78 12:00 08/22/18 18 100 40 11:20 08/22/18 107/59 Mechanical 11:00 (75) Ventilator 08/22/18 99.5 10:30 Intake and Output 08/21/18 08/21/18 08/22/18 1515:00 23:00 07:00 IntakeIntake Total 898.238 ml 1162.074 ml 398.334 ml OutputOutput Total 870 ml 1055 ml 1095 ml BalanceBalance 28.238 ml 107.074 ml -696.666 ml Results Result Diagram: 08/22/18 0400 08/22/18 0400 Results 24hrs Laboratory Tests Test 08/22/18 04:00 White Blood Count 17.1 H Red Blood Count 4.79 Hemoglobin 10.8 L Hematocrit 40.4 L Mean Corpuscular Volume 84.3 Mean Corpuscular Hemoglobin 22.5 L Mean Corpuscular Hemoglobin Concent 26.7 L Red Cell Distribution Width 15.9 H Platelet Count 313 Mean Platelet Volume 9.6 Immature Granulocytes % 0.900 H Neutrophils % 86.3 H Lymphocytes % 6.2 L Monocytes % 6.5 Eosinophils % 0.0 Basophils % 0.1 Nucleated Red Blood Cells % 0.0 Immature Granulocytes # 0.150 H Neutrophils # 14.8 H Lymphocytes # 1.1 Monocytes # 1.1 H Eosinophils # 0.0 Basophils # 0.0 Nucleated Red Blood Cells # 0.0 Sodium Level 140 Potassium Level 4.5 Chloride Level 99 Carbon Dioxide Level 40 H Anion Gap 1 L Blood Urea Nitrogen 36 H Creatinine 0.62 Est Glomerular Filtrat Rate mL/min > 60 Glucose Level 125 Calcium Level 9.1 Phosphorus Level 3.9 Magnesium Level 2.1 Medications Medication Current Medications IV Flush (NS 3 ml) 3 ml PER PROTOCOL IV ; Start 08/08/18 at 17:30 Ondansetron HCl (Zofran Inj) 4 mg Q6H PRN IV NAUSEA; Start 08/08/18 at 17:30 Haloperidol (Haldol) 5 mg PRN PRN IM AGGITATED Last administered on 08/16/18 08:32; Admin Dose 5 MG; Start 08/08/18 at 22:00 Propofol 100 ml @ 6.111 mls/ hr Q12H IV Last administered on 08/22/18 13:07; Admin Dose 36.666 MLS/HR; Start 08/09/18 at 05:30 Fentanyl 100 ml @ 2.5 mls/hr TITRATE IV Last administered on 08/22/18 12:47; Admin Dose 5 MLS/HR; Start 08/09/18 at 06:30 Enoxaparin Sodium (Lovenox) 40 mg Q12H SC Last administered on 08/22/18 10:45; Admin Dose 40 MG; Start 08/09/18 at 21:00 Famotidine (Pepcid) 20 mg BID GTB Last administered on 08/22/18 09:35; Admin Dose 20 MG; Start 08/12/18 at 09:00 Midazolam HCl 50 ml @ 1 mls/hr TITRATE IV Last administered on 08/22/18 13:07; Admin Dose 6 MLS/HR; Start 08/13/18 at 08:30 Methylprednisolone Sodium Succinate (Solu-Medrol) 40 mg Q6 IV Last administered on 08/22/18 11:51; Admin Dose 40 MG; Start 08/13/18 at 12:00 Scopolamine (Transderm-Scop) 1 patch Q72H TRANSDERM Last administered on 08/19/18 20:24; Admin Dose 1 PATCH; Start 08/13/18 at 20:00 Docusate Sodium (Colace Liquid Cup) 200 mg BID NGT Last administered on 08/22/18 09:34; Admin Dose 200 MG; Start 08/14/18 at 21:00 Polyethylene Glycol (Miralax) 17 gm DAILY GTB Last administered on 08/22/18 09:35; Admin Dose 17 GM; Start 08/17/18 at 09:00 Naphazoline HCl (Clear Eyes / Naphcon) 2 drop QID BOTH EYES Last administered on 08/22/18 12:29; Admin Dose 2 DROP; Start 08/16/18 at 18:14 Acetaminophen (Tylenol Liquid) 650 mg Q6H PRN NGT MILD PAIN(1-3)OR ELEVATED TEMP Last administered on 08/22/18 09:35; Admin Dose 650 MG; Start 08/17/18 at 00:57 Colistimethate Sodium 75 mg/ Sodium Chloride 100 ml @ 200 mls/hr Q12 IVPB Last administered on 08/22/18 09:51; Admin Dose 200 MLS/HR; Start 08/18/18 at 14:00 Linezolid (Zyvox) 600 mg BID PO Last administered on 08/22/18 09:35; Admin Dose 600 MG; Start 08/18/18 at 21:00 JOCELYN VILLALTA NP Aug 22, 2018 14:13
--- NOTE | 2018-08-22 16:58 | CONS ---
Assessment/Plan Assessment/Plan Assessment/Plan (Daily) Summary Assessment and Plan: Assessment: Unable to extubate patient currently with OG in place -Plan for PEG placement tomorrow- Respiratory failure status post intubation 08/09 -Unable to wean off ventilator -Plan for tracheostomy near future Bilateral pneumonia -Currently on antibiotic medication Morbid obesity History of obstructive sleep apnea In contact isolation for positive respiratory culture ACINETOBACTER BAUMANNII Plan: N.p.o. after midnight Discussed concerns for PEG 2/2 body habitus with patient's mother who verbalized understanding we will attempt PEG placement tomorrow Endoscopy - risks/benefits/alternatives/indications of procedure and sedation/anesthesia discussed with patient who states understading and gives informed consent to proceed. Patient seen in collaboration with Dr. Nolen Consultation Date/Type/Reason Admit Date/Time Aug 08, 2018 at 17:18 Date of Consultation: Aug 22, 2018 Type of Consult GI Reason for Consultation PEG placement Date/Time of Note DATE: 08/22/18 TIME: 16:52 Hx of Present Illness This is a 32-year-old male who presented to the hospital with respiratory failure pneumonia patient with past medical history of morbid obesity and obstructive sleep apnea. During hospitalization patient was intubated he has since trying to wean off intubation without success therefore GI has been consulted for PEG placement. Family is at bedside discussed procedure with mother including risk/benefits/alternatives she verbalized understanding is agreeable to procedure. We will plan for PEG placement tomorrow. Subjective hx not possible: pt critical Past Medical History Home Meds No Active Prescriptions or Reported Meds Medications Current Medications IV Flush (NS 3 ml) 3 ml PER PROTOCOL IV ; Start 08/08/18 at 17:30 Ondansetron HCl (Zofran Inj) 4 mg Q6H PRN IV NAUSEA; Start 08/08/18 at 17:30 Haloperidol (Haldol) 5 mg PRN PRN IM AGGITATED Last administered on 08/16/18at 08:32; Admin Dose 5 MG; Start 08/08/18 at 22:00 Propofol 100 ml @ 6.111 mls/ hr Q12H IV Last administered on 08/22/18at 15:46; Admin Dose 36.666 MLS/HR; Start 08/09/18 at 05:30 Fentanyl 100 ml @ 2.5 mls/hr TITRATE IV Last administered on 08/22/18at 12:47; Admin Dose 5 MLS/HR; Start 08/09/18 at 06:30 Enoxaparin Sodium (Lovenox) 40 mg Q12H SC Last administered on 08/22/18 10:45; Admin Dose 40 MG; Start 08/09/18 at 21:00 Famotidine (Pepcid) 20 mg BID GTB Last administered on 08/22/18 09:35; Admin Dose 20 MG; Start 08/12/18 at 09:00 Midazolam HCl 50 ml @ 1 mls/hr TITRATE IV Last administered on 08/22/18 13:07; Admin Dose 6 MLS/HR; Start 08/13/18 at 08:30 Methylprednisolone Sodium Succinate (Solu-Medrol) 40 mg Q6 IV Last administered on 08/22/18 11:51; Admin Dose 40 MG; Start 08/13/18 at 12:00 Scopolamine (Transderm-Scop) 1 patch Q72H TRANSDERM Last administered on 08/19/18 20:24; Admin Dose 1 PATCH; Start 08/13/18 at 20:00 Docusate Sodium (Colace Liquid Cup) 200 mg BID NGT Last administered on 08/22/18 09:34; Admin Dose 200 MG; Start 08/14/18 at 21:00 Polyethylene Glycol (Miralax) 17 gm DAILY GTB Last administered on 08/22/18 09:35; Admin Dose 17 GM; Start 08/17/18 at 09:00 Naphazoline HCl (Clear Eyes / Naphcon) 2 drop QID BOTH EYES Last administered on 08/22/18 16:30; Admin Dose 2 DROP; Start 08/16/18 at 18:14 Acetaminophen (Tylenol Liquid) 650 mg Q6H PRN NGT MILD PAIN(1-3)OR ELEVATED TEMP Last administered on 08/22/18 09:35; Admin Dose 650 MG; Start 08/17/18 at 00:57 Colistimethate Sodium 75 mg/ Sodium Chloride 100 ml @ 200 mls/hr Q12 IVPB Last administered on 08/22/18 09:51; Admin Dose 200 MLS/HR; Start 08/18/18 at 14:00 Allergies: Coded Allergies: No Known Drug Allergies (Verified Allergy, Mild, 08/08/18) Past Surgical History Past Surgical Hx: no surgical history Social History Alcohol Use: none Smoking Status: Former smoker Drug Use: none Exam/Review of Systems Exam Vitals PHYSICAL EXAMINATION: GENERAL: Morbid obesity, intubated/sedated SKIN: No lesion EARS/NOSE AND THROAT: Ears normal, nose normal, oropharynx normal, oral membranes well hydrated without lesions, intubated OG in place NECK: Supple, no masses, . CHEST: Inspection within normal limits. CARDIOVASCULAR: Heart: Regular rate and rhythm RESPIRATORY: Rales GASTROINTESTINAL AND LIVER: Abdomen: Soft, non tenderness, non-distended, no hernias, no masses, no organomegaly, no ascites, no guarding, no rebound tenderness, normoactive bowel sounds. Rectal: Deferred. Vital Signs Date Temp Pulse Resp B/P (MAP) Pulse Ox O2 O2 Flow FiO2 Time Delivery Rate 08/22/18 71 16:00 08/22/18 99.6 20 113/61 95 Mechanical 16:00 (78) Ventilator 08/22/18 40 11:20 Intake and Output 08/21/18 08/21/18 08/22/18 1515:00 23:00 07:00 IntakeIntake Total 898.238 ml 1162.074 ml 398.334 ml OutputOutput Total 870 ml 1055 ml 1095 ml BalanceBalance 28.238 ml 107.074 ml -696.666 ml Results Result Diagram: 08/22/18 0400 08/22/18 0400 Results 24hrs Laboratory Tests Test 08/22/18 04:00 White Blood Count 17.1 H Red Blood Count 4.79 Hemoglobin 10.8 L Hematocrit 40.4 L Mean Corpuscular Volume 84.3 Mean Corpuscular Hemoglobin 22.5 L Mean Corpuscular Hemoglobin Concent 26.7 L Red Cell Distribution Width 15.9 H Platelet Count 313 Mean Platelet Volume 9.6 Immature Granulocytes % 0.900 H Neutrophils % 86.3 H Lymphocytes % 6.2 L Monocytes % 6.5 Eosinophils % 0.0 Basophils % 0.1 Nucleated Red Blood Cells % 0.0 Immature Granulocytes # 0.150 H Neutrophils # 14.8 H Lymphocytes # 1.1 Monocytes # 1.1 H Eosinophils # 0.0 Basophils # 0.0 Nucleated Red Blood Cells # 0.0 Sodium Level 140 Potassium Level 4.5 Chloride Level 99 Carbon Dioxide Level 40 H Anion Gap 1 L Blood Urea Nitrogen 36 H Creatinine 0.62 Est Glomerular Filtrat Rate mL/min > 60 Glucose Level 125 Calcium Level 9.1 Phosphorus Level 3.9 Magnesium Level 2.1 Medications Medication Current Medications IV Flush (NS 3 ml) 3 ml PER PROTOCOL IV ; Start 08/08/18 at 17:30 Ondansetron HCl (Zofran Inj) 4 mg Q6H PRN IV NAUSEA; Start 08/08/18 at 17:30 Haloperidol (Haldol) 5 mg PRN PRN IM AGGITATED Last administered on 08/16/18 08:32; Admin Dose 5 MG; Start 08/08/18 at 22:00 Propofol 100 ml @ 6.111 mls/ hr Q12H IV Last administered on 08/22/18 15:46; Admin Dose 36.666 MLS/HR; Start 08/09/18 at 05:30 Fentanyl 100 ml @ 2.5 mls/hr TITRATE IV Last administered on 08/22/18 12:47; Admin Dose 5 MLS/HR; Start 08/09/18 at 06:30 Enoxaparin Sodium (Lovenox) 40 mg Q12H SC Last administered on 08/22/18 10:45; Admin Dose 40 MG; Start 08/09/18 at 21:00 Famotidine (Pepcid) 20 mg BID GTB Last administered on 08/22/18 09:35; Admin Dose 20 MG; Start 08/12/18 at 09:00 Midazolam HCl 50 ml @ 1 mls/hr TITRATE IV Last administered on 08/22/18 13:07; Admin Dose 6 MLS/HR; Start 08/13/18 at 08:30 Methylprednisolone Sodium Succinate (Solu-Medrol) 40 mg Q6 IV Last administered on 08/22/18 11:51; Admin Dose 40 MG; Start 08/13/18 at 12:00 Scopolamine (Transderm-Scop) 1 patch Q72H TRANSDERM Last administered on 08/19/18 20:24; Admin Dose 1 PATCH; Start 08/13/18 at 20:00 Docusate Sodium (Colace Liquid Cup) 200 mg BID NGT Last administered on 08/22/18 09:34; Admin Dose 200 MG; Start 08/14/18 at 21:00 Polyethylene Glycol (Miralax) 17 gm DAILY GTB Last administered on 08/22/18 09:35; Admin Dose 17 GM; Start 08/17/18 at 09:00 Naphazoline HCl (Clear Eyes / Naphcon) 2 drop QID BOTH EYES Last administered on 08/22/18 16:30; Admin Dose 2 DROP; Start 08/16/18 at 18:14 Acetaminophen (Tylenol Liquid) 650 mg Q6H PRN NGT MILD PAIN(1-3)OR ELEVATED TEMP Last administered on 08/22/18 09:35; Admin Dose 650 MG; Start 08/17/18 at 00:57 Colistimethate Sodium 75 mg/ Sodium Chloride 100 ml @ 200 mls/hr Q12 IVPB Last administered on 08/22/18 09:51; Admin Dose 200 MLS/HR; Start 08/18/18 at 14:00 NIRAJ BARNES Aug 22, 2018 16:58
[2018-08-22] MEDS: SCOPOLAMINE 1.5 MG PATCH TRANSDERM SCH (20:46)
[2018-08-23] VITALS (41 sets, daily range): BP systolic 97–126; BP diastolic 43–73; PULSE 58–91; RESP 18–23
[2018-08-23] MEDS: PROPOFOL 100 ML IV SCH ×9 (01:30→22:00)
[2018-08-23] MEDS: ACETAMINOPHEN 650MG/20.3ML CUP NGT PRN (03:02)
[2018-08-23] MEDS: METHYLPREDNISOLONE 40 MG INJ IV SCH ×4 (06:06→23:35)
[2018-08-23] MEDS: MIDAZOLAM (DRIP) 50 mg/50 mL 50 ML IV SCH ×2 (06:53→18:53)
[2018-08-23] MEDS: FENTAnyl (DRIP) 1000 mcg/100mL 100 ML IV SCH ×2 (06:55→21:28)
[2018-08-23] MEDS: COLISTIMETHATE 75 MG in SOD CHLORIDE 0.9% 100 ML IVPB SCH ×2 (08:30→21:30)
[2018-08-23] MEDS: ENOXAPARIN 40 MG/0.4 ML SYG SC SCH ×2 (08:32→21:32)
[2018-08-23] MEDS: NAPHAZOLINE 0.012% 15 ML OPH BOTH EYES SCH ×4 (08:33→21:30)
[2018-08-23] MEDS: DOCUSATE SODIUM 10 MG/ML (10ML CUP) NGT SCH ×2 (08:51→21:30)
[2018-08-23] MEDS: FAMOTIDINE 20 MG TAB GTB SCH ×2 (08:51→21:30)
[2018-08-23] MEDS: POLYETHYLENE GLYCOL 17 GM PACKET GTB SCH (08:51)
--- NOTE | 2018-08-23 09:42 | CONS ---
Consult Date/Type/Reason Admit Date/Time Aug 08, 2018 at 17:18 Initial Consult Date 08/09/18 Type of Consult Pulmonary Date/Time of Note DATE: 08/23/18 TIME: 09:40 Subjective Patient awake alert oriented off sedation. Follows simple commands. Placed on CPAP weaning trial. Chest x-ray shows patchy right lower lobe infiltrate. Objective Vital Signs Date Temp Pulse Resp B/P (MAP) Pulse Ox O2 O2 Flow FiO2 Time Delivery Rate 08/23/18 59 08:00 08/23/18 18 107/55 100 Mechanica 06:00 (72) l Ventilato r 08/23/18 40 05:20 08/23/18 100.2 04:00 Intake and Output 08/22/18 08/22/18 08/23/18 1515:00 23:00 07:00 IntakeIntake Total 946.0 ml 1465.077 ml 409.723 ml OutputOutput Total 800 ml 1160 ml 890 ml BalanceBalance 146.0 ml 305.077 ml -480.277 ml Exam GENERAL: Morbidly obese young gentleman orally intubated on mechanical ventilation VITAL SIGNS: per chart NECK: Supple. No JVD or lymphadenopathy. CARDIAC EXAM: S1, S2. No added sounds or murmurs. CHEST: Diminished air entry bilaterally ABDOMEN: Soft, nontender. No guarding or rebound. EXTREMITIES: No cyanosis, clubbing or edema. NEUROLOGIC: Generalized weakness. No focal deficits. Vent Setting Ventilator Support Mode: AC Fraction of Inspired Oxygen pe: 40 Positive End Expiratory Pressu: 8.0 Results/Medications Result Diagram: 08/23/18 0300 08/23/18 0300 Results 24 hrs Laboratory Tests Test 08/23/18 03:00 White Blood Count 14.0 H Red Blood Count 4.68 L Hemoglobin 10.9 L Hematocrit 39.4 L Mean Corpuscular Volume 84.2 Mean Corpuscular Hemoglobin 23.3 L Mean Corpuscular Hemoglobin Concent 27.7 L Red Cell Distribution Width 16.6 H Platelet Count 331 Mean Platelet Volume 9.4 Immature Granulocytes % 0.900 H Neutrophils % 86.2 H Lymphocytes % 6.7 L Monocytes % 6.1 Eosinophils % 0.0 Basophils % 0.1 Nucleated Red Blood Cells % 0.0 Immature Granulocytes # 0.130 H Neutrophils # 12.0 H Lymphocytes # 0.9 Monocytes # 0.9 Eosinophils # 0.0 Basophils # 0.0 Nucleated Red Blood Cells # 0.0 Prothrombin Time 13.7 Prothrombin Time Ratio 1.1 INR International Normalized Ratio 1.04 Sodium Level 140 Potassium Level 4.1 Chloride Level 100 Carbon Dioxide Level 35 H Anion Gap 5 Blood Urea Nitrogen 35 H Creatinine 0.66 Est Glomerular Filtrat Rate mL/min > 60 Glucose Level 126 Calcium Level 8.7 Phosphorus Level 4.0 Magnesium Level 2.1 Medications Current Medications IV Flush (NS 3 ml) 3 ml PER PROTOCOL IV ; Start 08/08/18 at 17:30 Ondansetron HCl (Zofran Inj) 4 mg Q6H PRN IV NAUSEA; Start 08/08/18 at 17:30 Haloperidol (Haldol) 5 mg PRN PRN IM AGGITATED Last administered on 08/16/18 08:32; Admin Dose 5 MG; Start 08/08/18 at 22:00 Propofol 100 ml @ 6.111 mls/ hr Q12H IV Last administered on 08/23/18 08:30; Admin Dose 42.777 MLS/HR; Start 08/09/18 at 05:30 Fentanyl 100 ml @ 2.5 mls/hr TITRATE IV Last administered on 08/23/18 06:55; Admin Dose 7.5 MLS/HR; Start 08/09/18 at 06:30 Enoxaparin Sodium (Lovenox) 40 mg Q12H SC Last administered on 08/23/18 08:32; Admin Dose 40 MG; Start 08/09/18 at 21:00 Famotidine (Pepcid) 20 mg BID GTB Last administered on 08/23/18 08:51; Admin Dose 20 MG; Start 08/12/18 at 09:00 Midazolam HCl 50 ml @ 1 mls/hr TITRATE IV Last administered on 08/23/18 06:53; Admin Dose 6 MLS/HR; Start 08/13/18 at 08:30 Methylprednisolone Sodium Succinate (Solu-Medrol) 40 mg Q6 IV Last administered on 08/23/18 06:06; Admin Dose 40 MG; Start 08/13/18 at 12:00 Scopolamine (Transderm-Scop) 1 patch Q72H TRANSDERM Last administered on 08/22/18 20:46; Admin Dose 1 PATCH; Start 08/13/18 at 20:00 Docusate Sodium (Colace Liquid Cup) 200 mg BID NGT Last administered on 08/23/18 08:51; Admin Dose 200 MG; Start 08/14/18 at 21:00 Polyethylene Glycol (Miralax) 17 gm DAILY GTB Last administered on 08/23/18 08:51; Admin Dose 17 GM; Start 08/17/18 at 09:00 Naphazoline HCl (Clear Eyes / Naphcon) 2 drop QID BOTH EYES Last administered on 08/23/18 08:33; Admin Dose 2 DROP; Start 08/16/18 at 18:14 Acetaminophen (Tylenol Liquid) 650 mg Q6H PRN NGT MILD PAIN(1-3)OR ELEVATED TEMP Last administered on 08/23/18 03:02; Admin Dose 650 MG; Start 08/17/18 at 00:57 Colistimethate Sodium 75 mg/ Sodium Chloride 100 ml @ 200 mls/hr Q12 IVPB Last administered on 08/23/18 08:30; Admin Dose 200 MLS/HR; Start 08/18/18 at 14:00 Assessment/Plan Hospital Course (Demo Recall) Assessment 1. Acute on chronic hypoxemic and hypercapnic respiratory failure, CPAP trial this morning however scheduled for tracheostomy if fails 2. Likely component of diastolic dysfunction 3. History of obesity hypoventilation syndrome and probable obstructive sleep apnea Plan 1. CPAP trial as tolerated otherwise proceed to tracheostomy 2. Preextubation cuff leak test to exclude upper airway edema 3. Tube feeding as tolerated 4. DVT and GI prophylaxis Critical care time 40 minutes JULIETH PUENTE MD, [facility] Aug 23, 2018 09:42
--- NOTE | 2018-08-23 11:18 | PN ---
Date/Time of Note Date/Time of Note DATE: 08/23/18 TIME: 11:16 Assessment/Plan VTE Prophylaxis Risk score (from Ns)>0 risk: 12 SCD applied (from Ns): No SCD contraindicated: other (no) Pharmacological prophylaxis: LMWH Lines/Catheters IV Catheter Type (from Nrs): PICC Line Central line still needed: Yes Urinary Cath still in place: Yes Reason Cath still needed: other (indicate) (intubated) Assessment/Plan Assessment/Plan 32M morbidly obese presents with hypercapnic respiratory failure and pneumonia. #Hypoxic and hypercapnic respiratory failure - Likely from obesity (ANDREW), exacerbated by likely pneumonia - Intubated 08/09 -has been on broad-spectrum antibiotics-and respiratory culture came back multidrug-resistant acinetobacter - For now continue on mechanical ventilation via pulmonary recommendations - Per family's wishes, will plan for tracheostomy and PEG when OR time and equipment available. # Pneumonia- Bilateral patchy infiltrates on CXR,WBC 16 on admission - on broad-spectrum antibiotics for MDR actinobacter PNA - Monitor, continue current antibiotics, follow up pulmonary and follow-up ID re commendations. - Unfortunately patient exceeds the weight limit for CT scanner DVT: lovenox GI: Protonix IV Critical care time spent in patient care today equals 40 minutes. Result Diagram: 08/23/18 0300 08/23/18 0300 Subjective 24 Hr Interval Summary Free Text/Dictation Tried sedation holiday and weaning trial this morning; patient failed. Plan for PEG today and trach tomorrow. Exam/Review of Systems Exam Vitals Vital Signs Date Temp Pulse Resp B/P (MAP) Pulse Ox O2 O2 Flow FiO2 Time Delivery Rate 08/23/18 68 110/54 100 Mechanical 09:00 (72) Ventilator 08/23/18 40 08:00 08/23/18 99.8 08:00 08/23/18 18 06:00 Intake and Output 08/22/18 08/22/18 08/23/18 1515:00 23:00 07:00 IntakeIntake Total 946.0 ml 1465.077 ml 466.000 ml OutputOutput Total 800 ml 1160 ml 890 ml BalanceBalance 146.0 ml 305.077 ml -424.000 ml Exam Gen: Morbidly obese man lying in bed intubated and sedated. Neck: Obese, no lymphadenopathy appreciated HEENT: Clear oropharynx, moist mucous membranes Card: Regular rate and rhythm, distant heart sounds Pulm: distant lung sounds. Abd: Morbidly obese, soft, nontender. Ext: LE edema and redness have resolved. Medications Medication Current Medications IV Flush (NS 3 ml) 3 ml PER PROTOCOL IV ; Start 08/08/18 at 17:30 Ondansetron HCl (Zofran Inj) 4 mg Q6H PRN IV NAUSEA; Start 08/08/18 at 17:30 Haloperidol (Haldol) 5 mg PRN PRN IM AGGITATED Last administered on 08/16/18 08:32; Admin Dose 5 MG; Start 08/08/18 at 22:00 Propofol 100 ml @ 6.111 mls/ hr Q12H IV Last administered on 08/23/18 08:30; Admin Dose 42.777 MLS/HR; Start 08/09/18 at 05:30 Fentanyl 100 ml @ 2.5 mls/hr TITRATE IV Last administered on 08/23/18 06:55; Admin Dose 7.5 MLS/HR; Start 08/09/18 at 06:30 Enoxaparin Sodium (Lovenox) 40 mg Q12H SC Last administered on 08/23/18 08:32; Admin Dose 40 MG; Start 08/09/18 at 21:00 Famotidine (Pepcid) 20 mg BID GTB Last administered on 08/23/18 08:51; Admin Dose 20 MG; Start 08/12/18 at 09:00 Midazolam HCl 50 ml @ 1 mls/hr TITRATE IV Last administered on 08/23/18 06:53; Admin Dose 6 MLS/HR; Start 08/13/18 at 08:30 Methylprednisolone Sodium Succinate (Solu-Medrol) 40 mg Q6 IV Last administered on 08/23/18 06:06; Admin Dose 40 MG; Start 08/13/18 at 12:00 Scopolamine (Transderm-Scop) 1 patch Q72H TRANSDERM Last administered on 08/22/18 20:46; Admin Dose 1 PATCH; Start 08/13/18 at 20:00 Docusate Sodium (Colace Liquid Cup) 200 mg BID NGT Last administered on 08/23/18 08:51; Admin Dose 200 MG; Start 08/14/18 at 21:00 Polyethylene Glycol (Miralax) 17 gm DAILY GTB Last administered on 08/23/18 08:51; Admin Dose 17 GM; Start 08/17/18 at 09:00 Naphazoline HCl (Clear Eyes / Naphcon) 2 drop QID BOTH EYES Last administered on 08/23/18 08:33; Admin Dose 2 DROP; Start 08/16/18 at 18:14 Acetaminophen (Tylenol Liquid) 650 mg Q6H PRN NGT MILD PAIN(1-3)OR ELEVATED TEMP Last administered on 08/23/18at 03:02; Admin Dose 650 MG; Start 08/17/18 at 00:57 Colistimethate Sodium 75 mg/ Sodium Chloride 100 ml @ 200 mls/hr Q12 IVPB Last administered on 08/23/18 08:30; Admin Dose 200 MLS/HR; Start 08/18/18 at 14:00 ELIANE PEARSON MD Aug 23, 2018 11:18
--- NOTE | 2018-08-23 12:25 | PN ---
Date/Time of Note Date/Time of Note DATE: 08/23/18 TIME: 12:25 Assessment/Plan Lines/Catheters IV Catheter Type (from Nrsg): PICC Line Santiago in Place (from Nrsg): Yes Assessment/Plan Assessment/Plan Respiratory failure Plan for tracheostomy tomorrow Subjective 24 Hr Interval Summary Constitutional: improved Pain Control: mild Exam/Review of Systems Vital Signs Vitals Vital Signs Date Temp Pulse Resp B/P (MAP) Pulse Ox O2 O2 Flow FiO2 Time Delivery Rate 08/23/18 83 107/55 96 Mechanical 11:00 (72) Ventilator 08/23/18 40 08:00 08/23/18 99.8 08:00 08/23/18 23 07:40 Intake and Output 08/22/18 08/22/18 08/23/18 1515:00 23:00 07:00 IntakeIntake Total 946.0 ml 1465.077 ml 466.000 ml OutputOutput Total 800 ml 1160 ml 965 ml BalanceBalance 146.0 ml 305.077 ml -499.000 ml Exam Eyes: nl conjunctiva, EOMI, nl lids, nl sclera ENMT: nl external ears & nose, nl lips & teeth, nl nasal mucosa & septum, mucosa pink and moist Neck: supple, non-tender Respiratory: clear to auscultation, normal air movement Cardiovascular: regular rate and rhythm, nl pulses Gastrointestinal: soft, nl liver, spleen, non-tender Musculoskeletal: nl extremities to inspection, nl gait and stance Results Result Diagram: 08/23/1829908/23/18299 TIMMY DALAL MD Aug 23, 2018 12:25
--- NOTE | 2018-08-23 13:01 | PREAC ---
Date/Time of Note Date/Time of Note DATE: 08/23/18 TIME: 12:57 Anesthesia Eval and Record Evaluation Time Pre-Procedure Interview DATE: 08/23/18 TIME: 12:57 Age 32 Sex male NPO: 8 hrs Preoperative diagnosis dysphagia Planned procedure EGD PEG placement Past Medical History Past Medical History: Includes Pulm: COPD, Other (respiratory failure) Surgery & Anesthesia Issues No known issue Meds Anticoagulation: No Beta Sherry within 24 hr: No Reason Beta Sherry not given: Pt. not on B-Sherry No Active Prescriptions or Reported Meds Current Medications IV Flush (NS 3 ml) 3 ml PER PROTOCOL IV ; Start 08/08/18 at 17:30 Ondansetron HCl (Zofran Inj) 4 mg Q6H PRN IV NAUSEA; Start 08/08/18 at 17:30 Haloperidol (Haldol) 5 mg PRN PRN IM AGGITATED Last administered on 08/16/18 08:32; Admin Dose 5 MG; Start 08/08/18 at 22:00 Propofol 100 ml @ 6.111 mls/ hr Q12H IV Last administered on 08/23/18 08:30; Admin Dose 42.777 MLS/HR; Start 08/09/18 at 05:30 Fentanyl 100 ml @ 2.5 mls/hr TITRATE IV Last administered on 08/23/18 06:55; Admin Dose 7.5 MLS/HR; Start 08/09/18 at 06:30 Enoxaparin Sodium (Lovenox) 40 mg Q12H SC Last administered on 08/23/18 08:32; Admin Dose 40 MG; Start 08/09/18 at 21:00 Famotidine (Pepcid) 20 mg BID GTB Last administered on 08/23/18 08:51; Admin Dose 20 MG; Start 08/12/18 at 09:00 Midazolam HCl 50 ml @ 1 mls/hr TITRATE IV Last administered on 08/23/18 06:53; Admin Dose 6 MLS/HR; Start 08/13/18 at 08:30 Methylprednisolone Sodium Succinate (Solu-Medrol) 40 mg Q6 IV Last administered on 08/23/18 12:28; Admin Dose 40 MG; Start 08/13/18 at 12:00 Scopolamine (Transderm-Scop) 1 patch Q72H TRANSDERM Last administered on 08/22/18 20:46; Admin Dose 1 PATCH; Start 08/13/18 at 20:00 Docusate Sodium (Colace Liquid Cup) 200 mg BID NGT Last administered on 08/23/18 08:51; Admin Dose 200 MG; Start 08/14/18 at 21:00 Polyethylene Glycol (Miralax) 17 gm DAILY GTB Last administered on 08/23/18 08: 51; Admin Dose 17 GM; Start 08/17/18 at 09:00 Naphazoline HCl (Clear Eyes / Naphcon) 2 drop QID BOTH EYES Last administered on 08/23/18 12:29; Admin Dose 2 DROP; Start 08/16/18 at 18:14 Acetaminophen (Tylenol Liquid) 650 mg Q6H PRN NGT MILD PAIN(1-3)OR ELEVATED TEMP Last administered on 08/23/18 03:02; Admin Dose 650 MG; Start 08/17/18 at 00:57 Colistimethate Sodium 75 mg/ Sodium Chloride 100 ml @ 200 mls/hr Q12 IVPB Last administered on 08/23/18 08:30; Admin Dose 200 MLS/HR; Start 08/18/18 at 14:00 Meds reviewed: Yes Allergies Coded Allergies: No Known Drug Allergies (Verified Allergy, Mild, 08/08/18) Allergies Reviewed: Yes Labs/Studies Labs Reviewed: Reviewed by anesthesiologist Result Diagram: 08/23/18 0300 08/23/18 0300 Laboratory Tests 08/23/18 03:00 test: N/A Studies: ECG (sr), CXR (cardiomegally, worsening congestion) Pre-procedure Exam Last vitals Vital Signs Date Temp Pulse Resp B/P (MAP) Pulse Ox O2 O2 Flow FiO2 Time Delivery Rate 08/23/18 64 12:00 08/23/18 19 96 40 11:00 08/23/18 107/55 Mechanical 11:00 (72) Ventilator 08/23/18 99.8 08:00 Airway: Adequate mouth opening Mallampati: Mallampati I Teeth: Abnormal Lung: Normal Heart: Normal ASA Physical Status ASA physical status: 3 Emergency: None Planned Anesthetic General/MAC: MAC (on TRACH) Pre-operative Attestations Prior to commencing anesthesia and surgery, the patient was re-evaluated, there was verification of: *The patient's identity *The results of appropriate recent lab work and preoperative vital signs *The above evaluation not changing prior to induction *Anesthetic plan, risk benefits, alternative and complications discussed with patient/family; questions answered; patient/family understands, accepts and wishes to proceed. JOELLE SMITH MD Aug 23, 2018 13:01
--- NOTE | 2018-08-23 13:04 | HPN ---
Date/Time of Note Date/Time of Note DATE: 08/23/18 TIME: 13:03 Interval H&P Admission Note Pt. seen H&P reviewed: No system changes SARAH HUNTER MD Aug 23, 2018 13:04
[2018-08-23] MEDS ORDERED: ROCURONIUM 50 MG INJ ONE (13:05)
--- NOTE | 2018-08-23 14:50 | CONS ---
Assessment/Plan Assessment/Plan Hospital Course (Demo Recall) Patient is status post PEG this morning, looks comfortable, family at bedside, still with ongoing low-grade fevers Tm 100.7 WBC 14 H&H 10.9 and 39.4 platelets 331 neutrophils 86.2 BUN 35 creatinine 0.66 Antimicrobials: Colistin Sputum culture growing multidrug-resistant Acinetobacter baumanii Indwelling: Endotracheal tube PEG Santiago catheter, PICC line Physical examination: This is a morbidly obese well-developed middle-aged man who is intubated sedated in no distress. Head atraumatic normocephalic, bucal mucosa dry, neck is obese. Chest rise symmetrical breath sounds diminished. Heart: S1-S2. Abdomen obese distended bowel sounds hypoactive. Extremities with edema Assessment: 1. Acute hypoxemic respiratory failure/ pneumonia 2. Morbid obesity 3. Sleep apnea with hypoventilation syndrome 4. Leukocytosis, possibly steroids induced Plan: Clinically unchanged, will add empiric antifungal coverage given ongoing fevers, plan for tracheostomy DEBORAH RN Consultation Date/Type/Reason Admit Date/Time Aug 08, 2018 at 17:18 Initial Consult Date 08/09/18 Type of Consult ID Date/Time of Note DATE: 08/23/18 TIME: 14:49 Exam/Review of Systems Exam Vitals Vital Signs Date Temp Pulse Resp B/P (MAP) Pulse Ox O2 O2 Flow FiO2 Time Delivery Rate 08/23/18 73 126/70 97 Mechanical 14:00 (88) Ventilator 08/23/18 99.4 12:00 08/23/18 19 40 11:00 Intake and Output 08/22/18 08/22/18 08/23/18 1515:00 23:00 07:00 IntakeIntake Total 946.0 ml 1465.077 ml 466.000 ml OutputOutput Total 800 ml 1160 ml 965 ml BalanceBalance 146.0 ml 305.077 ml -499.000 ml Results Result Diagram: 08/23/18 0300 08/23/18 0300 Results 24hrs Laboratory Tests Test 08/23/18 03:00 White Blood Count 14.0 H Red Blood Count 4.68 L Hemoglobin 10.9 L Hematocrit 39.4 L Mean Corpuscular Volume 84.2 Mean Corpuscular Hemoglobin 23.3 L Mean Corpuscular Hemoglobin Concent 27.7 L Red Cell Distribution Width 16.6 H Platelet Count 331 Mean Platelet Volume 9.4 Immature Granulocytes % 0.900 H Neutrophils % 86.2 H Lymphocytes % 6.7 L Monocytes % 6.1 Eosinophils % 0.0 Basophils % 0.1 Nucleated Red Blood Cells % 0.0 Immature Granulocytes # 0.130 H Neutrophils # 12.0 H Lymphocytes # 0.9 Monocytes # 0.9 Eosinophils # 0.0 Basophils # 0.0 Nucleated Red Blood Cells # 0.0 Prothrombin Time 13.7 Prothrombin Time Ratio 1.1 INR International Normalized Ratio 1.04 Sodium Level 140 Potassium Level 4.1 Chloride Level 100 Carbon Dioxide Level 35 H Anion Gap 5 Blood Urea Nitrogen 35 H Creatinine 0.66 Est Glomerular Filtrat Rate mL/min > 60 Glucose Level 126 Calcium Level 8.7 Phosphorus Level 4.0 Magnesium Level 2.1 Medications Medication Current Medications IV Flush (NS 3 ml) 3 ml PER PROTOCOL IV ; Start 08/08/18 at 17:30 Ondansetron HCl (Zofran Inj) 4 mg Q6H PRN IV NAUSEA; Start 08/08/18 at 17:30 Haloperidol (Haldol) 5 mg PRN PRN IM AGGITATED Last administered on 08/16/18 08:32; Admin Dose 5 MG; Start 08/08/18 at 22:00 Propofol 100 ml @ 6.111 mls/ hr Q12H IV Last administered on 08/23/18 13:01; Admin Dose 42.777 MLS/HR; Start 08/09/18 at 05:30 Fentanyl 100 ml @ 2.5 mls/hr TITRATE IV Last administered on 08/23/18 06:55; Admin Dose 7.5 MLS/HR; Start 08/09/18 at 06:30 Enoxaparin Sodium (Lovenox) 40 mg Q12H SC Last administered on 08/23/18 08:32; Admin Dose 40 MG; Start 08/09/18 at 21:00 Famotidine (Pepcid) 20 mg BID GTB Last administered on 08/23/18 08:51; Admin Dose 20 MG; Start 08/12/18 at 09:00 Midazolam HCl 50 ml @ 1 mls/hr TITRATE IV Last administered on 08/23/18 06:53; Admin Dose 6 MLS/HR; Start 08/13/18 at 08:30 Methylprednisolone Sodium Succinate (Solu-Medrol) 40 mg Q6 IV Last administered on 08/23/18 12:28; Admin Dose 40 MG; Start 08/13/18 at 12:00 Scopolamine (Transderm-Scop) 1 patch Q72H TRANSDERM Last administered on 08/22 20:46; Admin Dose 1 PATCH; Start 08/13/18 at 20:00 Docusate Sodium (Colace Liquid Cup) 200 mg BID NGT Last administered on 08/23/18 08:51; Admin Dose 200 MG; Start 08/14/18 at 21:00 Polyethylene Glycol (Miralax) 17 gm DAILY GTB Last administered on 08/23/18 08:51; Admin Dose 17 GM; Start 08/17/18 at 09:00 Naphazoline HCl (Clear Eyes / Naphcon) 2 drop QID BOTH EYES Last administered on 08/23/18 12:29; Admin Dose 2 DROP; Start 08/16/18 at 18:14 Acetaminophen (Tylenol Liquid) 650 mg Q6H PRN NGT MILD PAIN(1-3)OR ELEVATED TEMP Last administered on 08/23/18 03:02; Admin Dose 650 MG; Start 08/17/18 at 00:57 Colistimethate Sodium 75 mg/ Sodium Chloride 100 ml @ 200 mls/hr Q12 IVPB Last administered on 08/23/18 08:30; Admin Dose 200 MLS/HR; Start 08/18/18 at 14:00 JOCELYN VILLALTA NP Aug 23, 2018 14:50
[2018-08-23] MEDS: FLUCONAZOLE 100 MG TAB PO SCH (15:53)
[2018-08-24] VITALS (41 sets, daily range): BP systolic 108–129; BP diastolic 56–73; PULSE 57–95; RESP 18–22
[2018-08-24] MEDS: PROPOFOL 100 ML IV SCH ×9 (00:52→22:22)
[2018-08-24] MEDS: MIDAZOLAM (DRIP) 50 mg/50 mL 50 ML IV SCH ×4 (03:39→21:34)
[2018-08-24] MEDS: METHYLPREDNISOLONE 40 MG INJ IV SCH ×4 (05:55→23:54)
--- NOTE | 2018-08-24 08:14 | PAC ---
Date/Time of Note Date/Time of Note DATE: 08/24/18 TIME: 08:14 Post-Anesthesia Notes Post-Anesthesia Note Last documented vital signs Vital Signs Date Temp Pulse Resp B/P (MAP) Pulse Ox O2 O2 Flow FiO2 Time Delivery Rate 08/24/18 99.3 69 113/64 93 Mechanical 06:00 (80) Ventilator 08/24/18 19 40 05:26 08/24/18 99.3 04:00 Activity: WNL Respiratory function: WNL Cardiovascular function: WNL Mental status: Baseline Pain reasonably controlled: Yes Hydration appropriate: Yes Nausea/Vomiting absent: No JOELLE SMITH MD Aug 24, 2018 08:14
[2018-08-24] MEDS: POLYETHYLENE GLYCOL 17 GM PACKET GTB SCH (08:16)
[2018-08-24] MEDS: DOCUSATE SODIUM 10 MG/ML (10ML CUP) NGT SCH ×2 (08:16→21:04)
[2018-08-24] MEDS: FLUCONAZOLE 100 MG TAB PO SCH (08:38)
[2018-08-24] MEDS: FAMOTIDINE 20 MG TAB GTB SCH ×2 (08:38→21:04)
[2018-08-24] MEDS: COLISTIMETHATE 75 MG in SOD CHLORIDE 0.9% 100 ML IVPB SCH ×2 (08:38→21:05)
[2018-08-24] MEDS: NAPHAZOLINE 0.012% 15 ML OPH BOTH EYES SCH ×4 (08:38→21:05)
[2018-08-24] MEDS: ENOXAPARIN 40 MG/0.4 ML SYG SC SCH ×2 (08:39→21:06)
[2018-08-24] MEDS: FENTAnyl (DRIP) 1000 mcg/100mL 100 ML IV SCH ×2 (09:38→21:38)
--- NOTE | 2018-08-24 11:01 | CONS ---
Consult Date/Type/Reason Admit Date/Time Aug 08, 2018 at 17:18 Initial Consult Date 08/09/18 Type of Consult Pulmonary Date/Time of Note DATE: 08/24/18 TIME: 11:00 Subjective Remains on mechanical ventilation having failed CPAP weaning trial yesterday. Status post PEG tube placement. Pending tracheostomy later today. Objective Vital Signs Date Temp Pulse Resp B/P (MAP) Pulse Ox O2 O2 Flow FiO2 Time Delivery Rate 08/24/18 65 112/58 95 Mechanical 09:00 (76) Ventilator 08/24/18 22 40 08:20 08/24/18 99.8 08:00 Intake and Output 08/23/18 08/23/18 08/24/18 1515:00 23:00 07:00 IntakeIntake Total 443.274 ml 507.871 ml 378.863 ml OutputOutput Total 965 ml 875 ml 760 ml BalanceBalance -521.726 ml -367.129 ml -381.137 ml Exam PHYSICAL EXAMINATION GENERAL: Morbidly obese young gentleman orally intubated VITAL SIGNS: see below. HEENT: Pupils equal, round, and reactive to light. CARDIAC: S1, S2, no added sounds or murmurs CHEST: Diminished air entry bilaterally. ABDOMEN: Mildly distended. Bowel sounds present no guarding or rebound EXTREMITIES: No cyanosis, clubbing edema +1 NEUROLOGIC: Generalized weakness, unable to assess Vent Setting Ventilator Support Mode: AC Fraction of Inspired Oxygen pe: 40 Positive End Expiratory Pressu: 8.0 Results/Medications Result Diagram: 08/24/18 0500 08/24/18 0500 Results 24 hrs Laboratory Tests Test 08/24/18 05:00 08/24/18 07:00 White Blood Count 14.8 H Red Blood Count 4.82 Hemoglobin 11.2 L Hematocrit 40.5 L Mean Corpuscular Volume 84.0 Mean Corpuscular Hemoglobin 23.2 L Mean Corpuscular Hemoglobin Concent 27.7 L Red Cell Distribution Width 16.5 H Platelet Count 360 Mean Platelet Volume 9.8 Immature Granulocytes % 0.900 H Neutrophils % 88.2 H Lymphocytes % 4.5 L Monocytes % 6.3 Eosinophils % 0.0 Basophils % 0.1 Nucleated Red Blood Cells % 0.0 Immature Granulocytes # 0.130 H Neutrophils # 13.1 H Lymphocytes # 0.7 L Monocytes # 0.9 Eosinophils # 0.0 Basophils # 0.0 Nucleated Red Blood Cells # 0.0 Sodium Level 142 Potassium Level 4.2 Chloride Level 96 L Carbon Dioxide Level 36 H Anion Gap 10 # Blood Urea Nitrogen 36 H Creatinine 0.78 Est Glomerular Filtrat Rate mL/min > 60 Glucose Level 132 Calcium Level 9.5 Blood Gas Specimen Source Blood arterial Arterial Blood Date Drawn 08/24/2018 7:16:50 AM Arterial Blood pH (Temp corrected) 7.332 L Arterial Blood pCO2 (Temp correct) 71.2 H Arterial Blood pO2 (Temp corrected) 74.2 L Arterial Blood HCO3 36.9 H Arterial Blood Base Excess 8.5 H Arterial Blood Oxygen Saturation 93.3 L James Test ACCEPTAB Arterial Blood Gas Puncture Site Right Radial Arterial Blood Carboxyhemoglobin 1.0 Arterial Blood Methemoglobin 0.2 Blood Gas A-a O2 Differential 129.1 H Oxyhemoglobin Percent 92.2 L Blood Gas Temperature 37.0 Blood Gas Respiration Rate 18.0 Blood Gas Actual Respiration Rate 18 Blood Gas Modality VENT - AC FiO2 40.0 Blood Gas Tidal Volume 500.0 Blood Gas Low PEEP Setting 8.0 Blood Gas Notified Whom TM Blood Gas Notified Time 08/24/2018 7:43:32 AM Medications Current Medications IV Flush (NS 3 ml) 3 ml PER PROTOCOL IV ; Start 08/08/18 at 17:30 Ondansetron HCl (Zofran Inj) 4 mg Q6H PRN IV NAUSEA; Start 08/08/18 at 17:30 Haloperidol (Haldol) 5 mg PRN PRN IM AGGITATED Last administered on 08/16/18 08:32; Admin Dose 5 MG; Start 08/08/18 at 22:00 Propofol 100 ml @ 6.111 mls/ hr Q12H IV Last administered on 08/24/18 08:46; Admin Dose 36.666 MLS/HR; Start 08/09/18 at 05:30 Fentanyl 100 ml @ 2.5 mls/hr TITRATE IV Last administered on 08/24/18 09:38; Admin Dose 7.5 MLS/HR; Start 08/09/18 at 06:30 Enoxaparin Sodium (Lovenox) 40 mg Q12H SC Last administered on 08/24/18at 08:39; Admin Dose 40 MG; Start 08/09/18 at 21:00 Famotidine (Pepcid) 20 mg BID GTB Last administered on 08/24/18 08:38; Admin Dose 20 MG; Start 08/12/18 at 09:00 Midazolam HCl 50 ml @ 1 mls/hr TITRATE IV Last administered on 08/24/18 03:39; Admin Dose 6 MLS/HR; Start 08/13/18 at 08:30 Methylprednisolone Sodium Succinate (Solu-Medrol) 40 mg Q6 IV Last administered on 08/24/18 05:55; Admin Dose 40 MG; Start 08/13/18 at 12:00 Scopolamine (Transderm-Scop) 1 patch Q72H TRANSDERM Last administered on 08/22/18 20:46; Admin Dose 1 PATCH; Start 08/13/18 at 20:00 Docusate Sodium (Colace Liquid Cup) 200 mg BID NGT Last administered on 08/23/18 21:30; Admin Dose 200 MG; Start 08/14/18 at 21:00 Polyethylene Glycol (Miralax) 17 gm DAILY GTB Last administered on 08/23/18 08:51; Admin Dose 17 GM; Start 08/17/18 at 09:00 Naphazoline HCl (Clear Eyes / Naphcon) 2 drop QID BOTH EYES Last administered on 08/24/18 08:38; Admin Dose 2 DROP; Start 08/16/18 at 18:14 Acetaminophen (Tylenol Liquid) 650 mg Q6H PRN NGT MILD PAIN(1-3)OR ELEVATED TEMP Last administered on 08/23/18 03:02; Admin Dose 650 MG; Start 08/17/18 at 00:57 Colistimethate Sodium 75 mg/ Sodium Chloride 100 ml @ 200 mls/hr Q12 IVPB Last administered on 08/24/18 08:38; Admin Dose 200 MLS/HR; Start 08/18/18 at 14:00 Fluconazole (Diflucan) 100 mg DAILY PO Last administered on 08/24/18 08:38; Admin Dose 100 MG; Start 08/23/18 at 15:00 Assessment/Plan Hospital Course (Demo Recall) Assessment 1. Acute on chronic hypoxemic and hypercapnic respiratory failure, failed multiple weaning trials 2. Likely component of diastolic dysfunction 3. History of obesity hypoventilation syndrome and probable obstructive sleep apnea Plan 1. Pending tracheostomy having failed weaning trials 2. Status post G-tube placement resume tube feeding 3. Tube feeding as tolerated 4. DVT and GI prophylaxis Critical care time 40 minutes JULIETH PUENTE MD, [facility] Aug 24, 2018 11:01
--- NOTE | 2018-08-24 13:35 | CONS ---
Assessment/Plan Assessment/Plan Hospital Course (Demo Recall) No events patient looks comfortable, still with low-grade temps, T-max 100.1 WBC 14.8 platelets 360 neutrophils 88.2 BUN 36 creatinine 0.78 Antimicrobials: Colistin, fluconazole Sputum culture growing multidrug-resistant Acinetobacter baumanii Indwelling: Endotracheal tube PEG Santiago catheter, PICC line Physical examination: This is a morbidly obese well-developed middle-aged man who is intubated sedated in no distress. Head atraumatic normocephalic, bucal mucosa dry, neck is obese. Chest rise symmetrical breath sounds diminished. Heart: S1-S2. Abdomen obese distended bowel sounds hypoactive. Extremities with edema Assessment: 1. Acute hypoxemic respiratory failure/ pneumonia 2. Morbid obesity 3. Sleep apnea with hypoventilation syndrome 4. Leukocytosis, possibly steroids induced Plan: Clinically unchanged, continue present care, plan for tracheostomy DW RN Consultation Date/Type/Reason Admit Date/Time Aug 08, 2018 at 17:18 Initial Consult Date 08/09/18 Type of Consult ID Date/Time of Note DATE: 08/24/18 TIME: 13:34 Exam/Review of Systems Exam Vitals Vital Signs Date Temp Pulse Resp B/P (MAP) Pulse Ox O2 O2 Flow FiO2 Time Delivery Rate 08/24/18 62 12:00 08/24/18 22 95 40 11:25 08/24/18 126/62 Mechanical 11:00 (83) Ventilator 08/24/18 99.8 08:00 Intake and Output 08/23/18 08/23/18 08/24/18 1515:00 23:00 07:00 IntakeIntake Total 443.274 ml 507.871 ml 378.863 ml OutputOutput Total 965 ml 875 ml 860 ml BalanceBalance -521.726 ml -367.129 ml -481.137 ml Results Result Diagram: 08/24/18 0500 08/24/18 0500 Results 24hrs Laboratory Tests Test 08/24/18 05:00 08/24/18 07:00 White Blood Count 14.8 H Red Blood Count 4.82 Hemoglobin 11.2 L Hematocrit 40.5 L Mean Corpuscular Volume 84.0 Mean Corpuscular Hemoglobin 23.2 L Mean Corpuscular Hemoglobin Concent 27.7 L Red Cell Distribution Width 16.5 H Platelet Count 360 Mean Platelet Volume 9.8 Immature Granulocytes % 0.900 H Neutrophils % 88.2 H Lymphocytes % 4.5 L Monocytes % 6.3 Eosinophils % 0.0 Basophils % 0.1 Nucleated Red Blood Cells % 0.0 Immature Granulocytes # 0.130 H Neutrophils # 13.1 H Lymphocytes # 0.7 L Monocytes # 0.9 Eosinophils # 0.0 Basophils # 0.0 Nucleated Red Blood Cells # 0.0 Sodium Level 142 Potassium Level 4.2 Chloride Level 96 L Carbon Dioxide Level 36 H Anion Gap 10 # Blood Urea Nitrogen 36 H Creatinine 0.78 Est Glomerular Filtrat Rate mL/min > 60 Glucose Level 132 Calcium Level 9.5 Blood Gas Specimen Source Blood arterial Arterial Blood Date Drawn 08/24/2018 7:16:50 AM Arterial Blood pH (Temp corrected) 7.332 L Arterial Blood pCO2 (Temp correct) 71.2 H Arterial Blood pO2 (Temp corrected) 74.2 L Arterial Blood HCO3 36.9 H Arterial Blood Base Excess 8.5 H Arterial Blood Oxygen Saturation 93.3 L James Test ACCEPTAB Arterial Blood Gas Puncture Site Right Radial Arterial Blood Carboxyhemoglobin 1.0 Arterial Blood Methemoglobin 0.2 Blood Gas A-a O2 Differential 129.1 H Oxyhemoglobin Percent 92.2 L Blood Gas Temperature 37.0 Blood Gas Respiration Rate 18.0 Blood Gas Actual Respiration Rate 18 Blood Gas Modality VENT - AC FiO2 40.0 Blood Gas Tidal Volume 500.0 Blood Gas Low PEEP Setting 8.0 Blood Gas Notified Whom TM Blood Gas Notified Time 08/24/2018 7:43:32 AM Medications Medication Current Medications IV Flush (NS 3 ml) 3 ml PER PROTOCOL IV ; Start 08/08/18 at 17:30 Ondansetron HCl (Zofran Inj) 4 mg Q6H PRN IV NAUSEA; Start 08/08/18 at 17:30 Haloperidol (Haldol) 5 mg PRN PRN IM AGGITATED Last administered on 08/16/18at 08:32; Admin Dose 5 MG; Start 08/08/18 at 22:00 Propofol 100 ml @ 6.111 mls/ hr Q12H IV Last administered on 08/24/18at 11:30; Admin Dose 36.666 MLS/HR; Start 08/09/18 at 05:30 Fentanyl 100 ml @ 2.5 mls/hr TITRATE IV Last administered on 08/24/18 09:38; Admin Dose 7.5 MLS/HR; Start 08/09/18 at 06:30 Enoxaparin Sodium (Lovenox) 40 mg Q12H SC Last administered on 08/24/18 08:39; Admin Dose 40 MG; Start 08/09/18 at 21:00 Famotidine (Pepcid) 20 mg BID GTB Last administered on 08/24/18 08:38; Admin Dose 20 MG; Start 08/12/18 at 09:00 Midazolam HCl 50 ml @ 1 mls/hr TITRATE IV Last administered on 08/24/18 10:58; Admin Dose 6 MLS/HR; Start 08/13/18 at 08:30 Methylprednisolone Sodium Succinate (Solu-Medrol) 40 mg Q6 IV Last administered on 08/24/18 11:30; Admin Dose 40 MG; Start 08/13/18 at 12:00 Scopolamine (Transderm-Scop) 1 patch Q72H TRANSDERM Last administered on 08/22/18 20:46; Admin Dose 1 PATCH; Start 08/13/18 at 20:00 Docusate Sodium (Colace Liquid Cup) 200 mg BID NGT Last administered on 08/23/18 21:30; Admin Dose 200 MG; Start 08/14/18 at 21:00 Polyethylene Glycol (Miralax) 17 gm DAILY GTB Last administered on 08/23/18 08:51; Admin Dose 17 GM; Start 08/17/18 at 09:00 Naphazoline HCl (Clear Eyes / Naphcon) 2 drop QID BOTH EYES Last administered on 08/24/18 08:38; Admin Dose 2 DROP; Start 08/16/18 at 18:14 Acetaminophen (Tylenol Liquid) 650 mg Q6H PRN NGT MILD PAIN(1-3)OR ELEVATED TEMP Last administered on 08/23/18 03:02; Admin Dose 650 MG; Start 08/17/18 at 00:57 Colistimethate Sodium 75 mg/ Sodium Chloride 100 ml @ 200 mls/hr Q12 IVPB Last administered on 08/24/18 08:38; Admin Dose 200 MLS/HR; Start 08/18/18 at 14:00 Fluconazole (Diflucan) 100 mg DAILY PO Last administered on 2/7/19at 08:38; A dmin Dose 100 MG; Start 08/23/18 at 15:00 JOCELYN VILLLATA NP Aug 24, 2018 13:35
--- NOTE | 2018-08-24 13:44 | PN ---
Date/Time of Note Date/Time of Note DATE: 08/24/18 TIME: 13:31 Assessment/Plan VTE Prophylaxis Risk score (from Ns)>0 risk: 13 SCD applied (from Ns): No SCD contraindicated: other (no) Pharmacological prophylaxis: LMWH Lines/Catheters IV Catheter Type (from [facility]): PICC Line Central line still needed: Yes Urinary Cath still in place: Yes Reason Cath still needed: other (indicate) (intubated) Assessment/Plan Assessment/Plan 32M morbidly obese presents with hypercapnic respiratory failure and pneumonia. #Hypoxic and hypercapnic respiratory failure - Likely from obesity (ANDREW), exacerbated by likely pneumonia - Intubated 08/09 -has been on broad-spectrum antibiotics-and respiratory culture came back multidrug-resistant acinetobacter - For now continue on mechanical ventilation via pulmonary recommendations - PEG placed 08/24 - Will plan for trach today. # Pneumonia- Bilateral patchy infiltrates on CXR,WBC 16 on admission - on broad-spectrum antibiotics for MDR actinobacter PNA - Monitor, continue current antibiotics, follow up pulmonary and follow-up ID recommendations. - Unfortunately patient exceeds the weight limit for CT scanner DVT: lovenox GI: Protonix IV Critical care time spent in patient care today equals 40 minutes. Result Diagram: 08/24/18 0500 08/24/18 0500 Subjective 24 Hr Interval Summary Free Text/Dictation Yesterday tried weaning trial; he lasted about 30 minutes then developed tachypnea, respiratory distress. Got PEG placed yesterday by Dr. Morrissey. Exam/Review of Systems Exam Vitals Vital Signs Date Temp Pulse Resp B/P (MAP) Pulse Ox O2 O2 Flow FiO2 Time Delivery Rate 08/24/18 62 12:00 08/24/18 22 95 40 11:25 08/24/18 126/62 Mechanical 11:00 (83) Ventilator 08/24/18 99.8 08:00 Intake and Output 08/23/18 08/23/18 08/24/18 1414:59 22:59 06:59 IntakeIntake Total 443.274 ml 550.648 ml 342.197 ml OutputOutput Total 915 ml 900 ml 860 ml BalanceBalance -471.726 ml -349.352 ml -517.803 ml Exam Gen: Morbidly obese man lying in bed intubated and sedated. Neck: Obese, no lymphadenopathy appreciated HEENT: Clear oropharynx, moist mucous membranes Card: Regular rate and rhythm, distant heart sounds Pulm: distant lung sounds. Abd: Morbidly obese, soft, nontender. PEG in place clean/dry/intact Ext: LE edema and redness have resolved. Medications Medication Current Medications IV Flush (NS 3 ml) 3 ml PER PROTOCOL IV ; Start 08/08/18 at 17:30 Ondansetron HCl (Zofran Inj) 4 mg Q6H PRN IV NAUSEA; Start 08/08/18 at 17:30 Haloperidol (Haldol) 5 mg PRN PRN IM AGGITATED Last administered on 08/16/18 08:32; Admin Dose 5 MG; Start 08/08/18 at 22:00 Propofol 100 ml @ 6.111 mls/ hr Q12H IV Last administered on 08/24/18 11:30; Admin Dose 36.666 MLS/HR; Start 08/09/18 at 05:30 Fentanyl 100 ml @ 2.5 mls/hr TITRATE IV Last administered on 08/24/18 09:38; Admin Dose 7.5 MLS/HR; Start 08/09/18 at 06:30 Enoxaparin Sodium (Lovenox) 40 mg Q12H SC Last administered on 08/24/18 08:39; Admin Dose 40 MG; Start 08/09/18 at 21:00 Famotidine (Pepcid) 20 mg BID GTB Last administered on 08/24/18 08:38; Admin Dose 20 MG; Start 08/12/18 at 09:00 Midazolam HCl 50 ml @ 1 mls/hr TITRATE IV Last administered on 08/24/18 10:58; Admin Dose 6 MLS/HR; Start 08/13/18 at 08:30 Methylprednisolone Sodium Succinate (Solu-Medrol) 40 mg Q6 IV Last administered on 08/24/18 11:30; Admin Dose 40 MG; Start 08/13/18 at 12:00 Scopolamine (Transderm-Scop) 1 patch Q72H TRANSDERM Last administered on 08/22/18 20:46; Admin Dose 1 PATCH; Start 08/13/18 at 20:00 Docusate Sodium (Colace Liquid Cup) 200 mg BID NGT Last administered on 08/23/18 21:30; Admin Dose 200 MG; Start 08/14/18 at 21:00 Polyethylene Glycol (Miralax) 17 gm DAILY GTB Last administered on 08/23/18 08:51; Admin Dose 17 GM; Start 08/17/18 at 09:00 Naphazoline HCl (Clear Eyes / Naphcon) 2 drop QID BOTH EYES Last administered on 08/24/18 08:38; Admin Dose 2 DROP; Start 08/16/18 at 18:14 Acetaminophen (Tylenol Liquid) 650 mg Q6H PRN NGT MILD PAIN(1-3)OR ELEVATED TEMP Last administered on 08/23/18 03:02; Admin Dose 650 MG; Start 08/17/18 at 00:57 Colistimethate Sodium 75 mg/ Sodium Chloride 100 ml @ 200 mls/hr Q12 IVPB Last administered on 08/24/18 08:38; Admin Dose 200 MLS/HR; Start 08/18/18 at 14:00 Fluconazole (Diflucan) 100 mg DAILY PO Last administered on 08/24/18 08:38; Admin Dose 100 MG; Start 08/23/18 at 15:00 ELIANE PEARSON MD Aug 24, 2018 13:44
--- NOTE | 2018-08-24 15:11 | PN ---
Date/Time of Note Date/Time of Note DATE: 08/24/18 TIME: 15:06 Assessment/Plan VTE Prophylaxis Risk score (from Ns)>0 risk: 13 SCD applied (from Ns): No SCD contraindicated: other (scds) Pharmacological prophylaxis: other (scds) Lines/Catheters IV Catheter Type (from [facility]): PICC Line Central line still needed: Yes (meds) Urinary Cath still in place: Yes Reason Cath still needed: other (indicate) (monitor out-put) Assessment/Plan Hospital Course Summary Assessment and Plan: Assessment: Unable to extubate patient- 08/23/18 that status post uneventful placement of 20 Citizen Of [place] gastrostomy tube Respiratory failure status post intubation 08/09 -Unable to wean off ventilator -Plan for tracheostomy near future Bilateral pneumonia -Currently on antibiotic medication Morbid obesity History of obstructive sleep apnea In contact isolation for positive respiratory culture ACINETOBACTER BAUMANNII Plan: PEG care BID NPO for trach placement today Start when ok after trach placement GI will sign off, but will be available upon reconsult as needed Patient seen in collaboration with Dr. Nolen Subjective: Course reviewed with nursing staff Patient interviewed and examined All labs, imaging and other results reviewed The patient is comfortable no overnight events She remains n.p.o. for trach placement today. No signs symptoms of infection, continue PEG care twice daily PHYSICAL EXAMINATION: GENERAL: Morbid obesity, intubated/sedated SKIN: No lesion EARS/NOSE AND THROAT: Ears normal, nose normal, oropharynx normal, oral membranes well hydrated without lesions, NECK: Supple, no masses, . CHEST: Inspection within normal limits. CARDIOVASCULAR: Heart: Regular rate and rhythm RESPIRATORY: Rales GASTROINTESTINAL AND LIVER: Abdomen: Soft, non tenderness,g-tube in place non- distended, no hernias, no masses, no organomegaly, no ascites, no guarding, no rebound tenderness, normoactive bowel sounds. Rectal: Deferred. Result Diagram: 08/24/18 0500 08/24/18 0500 Results 24hrs Laboratory Tests Test 08/24/18 05:00 08/24/18 07:00 White Blood Count 14.8 H Red Blood Count 4.82 Hemoglobin 11.2 L Hematocrit 40.5 L Mean Corpuscular Volume 84.0 Mean Corpuscular Hemoglobin 23.2 L Mean Corpuscular Hemoglobin Concent 27.7 L Red Cell Distribution Width 16.5 H Platelet Count 360 Mean Platelet Volume 9.8 Immature Granulocytes % 0.900 H Neutrophils % 88.2 H Lymphocytes % 4.5 L Monocytes % 6.3 Eosinophils % 0.0 Basophils % 0.1 Nucleated Red Blood Cells % 0.0 Immature Granulocytes # 0.130 H Neutrophils # 13.1 H Lymphocytes # 0.7 L Monocytes # 0.9 Eosinophils # 0.0 Basophils # 0.0 Nucleated Red Blood Cells # 0.0 Sodium Level 142 Potassium Level 4.2 Chloride Level 96 L Carbon Dioxide Level 36 H Anion Gap 10 # Blood Urea Nitrogen 36 H Creatinine 0.78 Est Glomerular Filtrat Rate mL/min > 60 Glucose Level 132 Calcium Level 9.5 Blood Gas Specimen Source Blood arterial Arterial Blood Date Drawn 08/24/2018 7:16:50 AM Arterial Blood pH (Temp corrected) 7.332 L Arterial Blood pCO2 (Temp correct) 71.2 H Arterial Blood pO2 (Temp corrected) 74.2 L Arterial Blood HCO3 36.9 H Arterial Blood Base Excess 8.5 H Arterial Blood Oxygen Saturation 93.3 L James Test ACCEPTAB Arterial Blood Gas Puncture Site Right Radial Arterial Blood Carboxyhemoglobin 1.0 Arterial Blood Methemoglobin 0.2 Blood Gas A-a O2 Differential 129.1 H Oxyhemoglobin Percent 92.2 L Blood Gas Temperature 37.0 Blood Gas Respiration Rate 18.0 Blood Gas Actual Respiration Rate 18 Blood Gas Modality VENT - AC FiO2 40.0 Blood Gas Tidal Volume 500.0 Blood Gas Low PEEP Setting 8.0 Blood Gas Notified Whom TM Blood Gas Notified Time 08/24/2018 7:43:32 AM Exam/Review of Systems Exam Vitals Vital Signs Date Temp Pulse Resp B/P (MAP) Pulse Ox O2 O2 Flow FiO2 Time Delivery Rate 08/24/18 62 12:00 08/24/18 22 95 40 11:25 08/24/18 126/62 Mechanical 11:00 (83) Ventilator 08/24/18 99.8 08:00 Intake and Output 08/23/18 08/23/18 08/24/18 1515:00 23:00 07:00 IntakeIntake Total 443.274 ml 507.871 ml 378.863 ml OutputOutput Total 965 ml 875 ml 860 ml BalanceBalance -521.726 ml -367.129 ml -481.137 ml Results Results 24hrs Laboratory Tests Test 08/24/18 05:00 08/24/18 07:00 White Blood Count 14.8 H Red Blood Count 4.82 Hemoglobin 11.2 L Hematocrit 40.5 L Mean Corpuscular Volume 84.0 Mean Corpuscular Hemoglobin 23.2 L Mean Corpuscular Hemoglobin Concent 27.7 L Red Cell Distribution Width 16.5 H Platelet Count 360 Mean Platelet Volume 9.8 Immature Granulocytes % 0.900 H Neutrophils % 88.2 H Lymphocytes % 4.5 L Monocytes % 6.3 Eosinophils % 0.0 Basophils % 0.1 Nucleated Red Blood Cells % 0.0 Immature Granulocytes # 0.130 H Neutrophils # 13.1 H Lymphocytes # 0.7 L Monocytes # 0.9 Eosinophils # 0.0 Basophils # 0.0 Nucleated Red Blood Cells # 0.0 Sodium Level 142 Potassium Level 4.2 Chloride Level 96 L Carbon Dioxide Level 36 H Anion Gap 10 # Blood Urea Nitrogen 36 H Creatinine 0.78 Est Glomerular Filtrat Rate mL/min > 60 Glucose Level 132 Calcium Level 9.5 Blood Gas Specimen Source Blood arterial Arterial Blood Date Drawn 08/24/2018 7:16:50 AM Arterial Blood pH (Temp corrected) 7.332 L Arterial Blood pCO2 (Temp correct) 71.2 H Arterial Blood pO2 (Temp corrected) 74.2 L Arterial Blood HCO3 36.9 H Arterial Blood Base Excess 8.5 H Arterial Blood Oxygen Saturation 93.3 L James Test ACCEPTAB Arterial Blood Gas Puncture Site Right Radial Arterial Blood Carboxyhemoglobin 1.0 Arterial Blood Methemoglobin 0.2 Blood Gas A-a O2 Differential 129.1 H Oxyhemoglobin Percent 92.2 L Blood Gas Temperature 37.0 Blood Gas Respiration Rate 18.0 Blood Gas Actual Respiration Rate 18 Blood Gas Modality VENT - AC FiO2 40.0 Blood Gas Tidal Volume 500.0 Blood Gas Low PEEP Setting 8.0 Blood Gas Notified Whom TM Blood Gas Notified Time 08/24/2018 7:43:32 AM Medications Medication Current Medications IV Flush (NS 3 ml) 3 ml PER PROTOCOL IV ; Start 08/08/18 at 17:30 Ondansetron HCl (Zofran Inj) 4 mg Q6H PRN IV NAUSEA; Start 08/08/18 at 17:30 Haloperidol (Haldol) 5 mg PRN PRN IM AGGITATED Last administered on 08/16/18at 08:32; Admin Dose 5 MG; Start 08/08/18 at 22:00 Propofol 100 ml @ 6.111 mls/ hr Q12H IV Last administered on 08/24/18 14:28; Admin Dose 36.666 MLS/HR; Start 08/09/18 at 05:30 Fentanyl 100 ml @ 2.5 mls/hr TITRATE IV Last administered on 08/24/18 09:38; Admin Dose 7.5 MLS/HR; Start 08/09/18 at 06:30 Enoxaparin Sodium (Lovenox) 40 mg Q12H SC Last administered on 08/24/18 08:39; Admin Dose 40 MG; Start 08/09/18 at 21:00 Famotidine (Pepcid) 20 mg BID GTB Last administered on 08/24/18 08:38; Admin Dose 20 MG; Start 08/12/18 at 09:00 Midazolam HCl 50 ml @ 1 mls/hr TITRATE IV Last administered on 08/24/18 10:58; Admin Dose 6 MLS/HR; Start 08/13/18 at 08:30 Methylprednisolone Sodium Succinate (Solu-Medrol) 40 mg Q6 IV Last administered on 08/24/18 11:30; Admin Dose 40 MG; Start 08/13/18 at 12:00 Scopolamine (Transderm-Scop) 1 patch Q72H TRANSDERM Last administered on 08/22/18 20:46; Admin Dose 1 PATCH; Start 08/13/18 at 20:00 Docusate Sodium (Colace Liquid Cup) 200 mg BID NGT Last administered on 08/23/18 21:30; Admin Dose 200 MG; Start 08/14/18 at 21:00 Polyethylene Glycol (Miralax) 17 gm DAILY GTB Last administered on 08/23/18 08:51; Admin Dose 17 GM; Start 08/17/18 at 09:00 Naphazoline HCl (Clear Eyes / Naphcon) 2 drop QID BOTH EYES Last administered on 08/24/18 13:59; Admin Dose 2 DROP; Start 08/16/18 at 18:14 Acetaminophen (Tylenol Liquid) 650 mg Q6H PRN NGT MILD PAIN(1-3)OR ELEVATED TEMP Last administered on 08/23/18 03:02; Admin Dose 650 MG; Start 08/17/18 at 00:57 Colistimethate Sodium 75 mg/ Sodium Chloride 100 ml @ 200 mls/hr Q12 IVPB Last administered on 08/24/18at 08:38; Admin Dose 200 MLS/HR; Start 08/18/18 at 14:00 Fluconazole (Diflucan) 100 mg DAILY PO Last administered on 08/24/18at 08:38; Admin Dose 100 MG; Start 08/23/18 at 15:00 NIRAJ BARNES Aug 24, 2018 15:11
[2018-08-24] MEDS: ACETAMINOPHEN 650MG/20.3ML CUP NGT PRN ×2 (16:36→22:23)
[2018-08-24] MEDS ORDERED: ROCURONIUM 50 MG INJ ONE (17:09)
[2018-08-24] MEDS ORDERED: FENTAnyl 50 MCG/ML VIAL ONE (17:10)
[2018-08-24] MEDS ORDERED: ETOMIDATE 20 MG INJ ONE (17:11)
[2018-08-24] MEDS ORDERED: CEFAZOLIN 1 GM INJ ONE (17:11)
[2018-08-24] MEDS ORDERED: MIDAZOLAM 1 MG/ML 2 ML INJ ONE (17:11)
[2018-08-24] MEDS ORDERED: ONDANSETRON 4 MG INJ ONE (17:16)
[2018-08-24] MEDS ORDERED: LIDOCAINE 1%/EPI (1:100,000) (MDV) 20 ML ONE (18:21)
--- NOTE | 2018-08-24 18:28 | PREAC ---
Date/Time of Note Date/Time of Note DATE: 08/24/18 TIME: 18:26 Anesthesia Eval and Record Evaluation Time Pre-Procedure Interview DATE: 08/24/18 TIME: 18:26 Age 32 Sex male NPO: 8 hrs Preoperative diagnosis respiratory failure Planned procedure tracheostomy Past Medical History Past Medical History: Includes Cardio: HTN, Dyslipidemia, CHF Endo: Diabetes, Hypothyroid Pulm: Smoking Hx, COPD, Sleep Apnea, Home CPAP, Other (severe pickwickian syndrome) GI: Morbid obesity, Other Surgery & Anesthesia Issues Hx of difficult intubation Meds Anticoagulation: No Beta Sherry within 24 hr: No Reason Beta Sherry not given: COPD, CHF No Active Prescriptions or Reported Meds Current Medications IV Flush (NS 3 ml) 3 ml PER PROTOCOL IV ; Start 08/08/18 at 17:30 Ondansetron HCl (Zofran Inj) 4 mg Q6H PRN IV NAUSEA; Start 08/08/18 at 17:30 Haloperidol (Haldol) 5 mg PRN PRN IM AGGITATED Last administered on 08/16/18 08:32; Admin Dose 5 MG; Start 08/08/18 at 22:00 Propofol 100 ml @ 6.111 mls/ hr Q12H IV Last administered on 08/24/18 17:27; Admin Dose 36.666 MLS/HR; Start 08/09/18 at 05:30 Fentanyl 100 ml @ 2.5 mls/hr TITRATE IV Last administered on 08/24/18 09:38; Admin Dose 7.5 MLS/HR; Start 08/09/18 at 06:30 Enoxaparin Sodium (Lovenox) 40 mg Q12H SC Last administered on 08/24/18 08:39; Admin Dose 40 MG; Start 08/09/18 at 21:00 Famotidine (Pepcid) 20 mg BID GTB Last administered on 08/24/18 08:38; Admin Dose 20 MG; Start 08/12/18 at 09:00 Midazolam HCl 50 ml @ 1 mls/hr TITRATE IV Last administered on 08/24/18 10:58; Admin Dose 6 MLS/HR; Start 08/13/18 at 08:30 Methylprednisolone Sodium Succinate (Solu-Medrol) 40 mg Q6 IV Last administered on 08/24/18 17:59; Admin Dose 40 MG; Start 08/13/18 at 12:00 Scopolamine (Transderm-Scop) 1 patch Q72H TRANSDERM Last administered on 08/22/18 20:46; Admin Dose 1 PATCH; Start 08/13/18 at 20:00 Docusate Sodium (Colace Liquid Cup) 200 mg BID NGT Last administered on 08/23/18 21:30; Admin Dose 200 MG; Start 08/14/18 at 21:00 Polyethylene Glycol (Miralax) 17 gm DAILY GTB Last administered on 08/23/18 08:51; Admin Dose 17 GM; Start 08/17/18 at 09:00 Naphazoline HCl (Clear Eyes / Naphcon) 2 drop QID BOTH EYES Last administered on 08/24/18 16:36; Admin Dose 2 DROP; Start 08/16/18 at 18:14 Acetaminophen (Tylenol Liquid) 650 mg Q6H PRN NGT MILD PAIN(1-3)OR ELEVATED TEMP Last administered on 08/24/18 16:36; Admin Dose 650 MG; Start 08/17/18 at 00:57 Colistimethate Sodium 75 mg/ Sodium Chloride 100 ml @ 200 mls/hr Q12 IVPB Last administered on 08/24/18 08:38; Admin Dose 200 MLS/HR; Start 08/18/18 at 14:00 Fluconazole (Diflucan) 100 mg DAILY PO Last administered on 08/24/18 08:38; Admin Dose 100 MG; Start 08/23/18 at 15:00 Sodium Chloride 1,000 ml @ 1,000 mls/hr Q1H ONCE IV Last administered on 18:17; Admin Dose 1,000 MLS/HR; Start 08/24/18 at 18:30; Stop 08/24/18 at 19:29 Meds reviewed: Yes Allergies Coded Allergies: No Known Drug Allergies (Verified Allergy, Mild, 08/08/18) Allergies Reviewed: Yes Labs/Studies Labs Reviewed: Reviewed by anesthesiologist Result Diagram: 08/24/18 0500 08/24/18 0500 Laboratory Tests 08/24/18 05:00 test: N/A Studies: ECG, CXR Pre-procedure Exam Last vitals Vital Signs Date Temp Pulse Resp B/P (MAP) Pulse Ox O2 O2 Flow FiO2 Time Delivery Rate 08/24/18 101.8 17:35 08/24/18 72 19 96 40 17:20 08/24/18 121/57 Mechanica 15:00 (78) l Ventilato r Airway: Adequate mouth opening, Adequate thyromental dist Mallampati: Mallampati IV Teeth: Normal Lung: Abnormal (severe respiratory failure) Heart: Normal ASA Physical Status ASA physical status: 5 Emergency: E Planned Anesthetic General/MAC: ETT, Other (trach) Planned Pain Management Parenteral pain med, Local by surgeon Pre-operative Attestations Prior to commencing anesthesia and surgery, the patient was re-evaluated, there was verification of: *The patient's identity *The results of appropriate recent lab work and preoperative vital signs *The above evaluation not changing prior to induction *Anesthetic plan, risk benefits, alternative and complications discussed with patient/family; questions answered; patient/family understands, accepts and wishes to proceed. JANICE BOX MD Aug 24, 2018 18:28
[2018-08-24] MEDS ORDERED: SOD CHLORIDE 0.9% 1,000 ML IV ONE (18:30)
[2018-08-24] MEDS ORDERED: PHENYLephrine (100 MCG/ML) 5ML SYG ONE (18:30)
[2018-08-25] VITALS (54 sets, daily range): BP systolic 92–136; BP diastolic 48–81; PULSE 52–123; RESP 17–27
[2018-08-25] MEDS: PROPOFOL 100 ML IV SCH ×6 (01:30→23:42)
[2018-08-25] MEDS: METHYLPREDNISOLONE 40 MG INJ IV SCH ×2 (05:07→20:50)
[2018-08-25] MEDS: NAPHAZOLINE 0.012% 15 ML OPH BOTH EYES SCH ×4 (08:50→20:50)
[2018-08-25] MEDS: COLISTIMETHATE 75 MG in SOD CHLORIDE 0.9% 100 ML IVPB SCH ×2 (08:51→20:50)
[2018-08-25] MEDS: FAMOTIDINE 20 MG TAB GTB SCH ×2 (08:51→20:53)
[2018-08-25] MEDS: POLYETHYLENE GLYCOL 17 GM PACKET GTB SCH (08:51)
[2018-08-25] MEDS: FLUCONAZOLE 100 MG TAB PO SCH (08:51)
[2018-08-25] MEDS: DOCUSATE SODIUM 10 MG/ML (10ML CUP) NGT SCH ×2 (08:51→20:51)
[2018-08-25] MEDS: ENOXAPARIN 40 MG/0.4 ML SYG SC SCH ×2 (08:54→20:53)
--- NOTE | 2018-08-25 09:58 | PAC ---
Date/Time of Note Date/Time of Note DATE: 08/25/18 TIME: 09:58 Post-Anesthesia Notes Post-Anesthesia Note Last documented vital signs Vital Signs Date Temp Pulse Resp B/P (MAP) Pulse Ox O2 O2 Flow FiO2 Time Delivery Rate 08/25/18 68 23 116/61 98 09:30 (79) 08/25/18 Mechanica 09:00 l Ventilato r 08/25/18 70 08:00 08/25/18 100.1 08:00 Activity: WNL Respiratory function: Other Cardiovascular function: WNL Mental status: Other Pain reasonably controlled: Yes Hydration appropriate: Yes Nausea/Vomiting absent: Yes JANICE BOX MD Aug 25, 2018 09:58
[2018-08-25] MEDS: MIDAZOLAM (DRIP) 50 mg/50 mL 50 ML IV SCH (11:49)
--- NOTE | 2018-08-25 12:25 | CONS ---
Assessment/Plan Assessment/Plan Hospital Course (Demo Recall) Patient is lying comfortably in bed still with low-grade fevers repeat sputum culture growing gram-negative rods. he remains on IV colistin. BUN 33 creatinine 0.77 WBC 17.4 platelets 333 neutrophils 85.8 Antimicrobials: Colistin, fluconazole Sputum culture growing multidrug-resistant Acinetobacter baumanii Indwelling: Endotracheal tube PEG Santiago catheter, PICC line Physical examination: This is a morbidly obese well-developed middle-aged man who is intubated sedated in no distress. Head atraumatic normocephalic, bucal mucosa dry, neck is obese. Chest rise symmetrical breath sounds diminished. Heart: S1-S2. Abdomen obese distended bowel sounds hypoactive. Extremities with edema Assessment: 1. Acute hypoxemic respiratory failure/ pneumonia 2. Morbid obesity 3. Sleep apnea with hypoventilation syndrome 4. Leukocytosis, possibly steroids induced Plan: Clinically unchanged, status post tracheostomy yesterday, continue present care, antibiotics, steroids taper, follow repeat sputum culture DW RN Consultation Date/Type/Reason Admit Date/Time Aug 08, 2018 at 17:18 Initial Consult Date 08/09/18 Type of Consult ID Date/Time of Note DATE: 08/25/18 TIME: 12:24 Exam/Review of Systems Exam Vitals Vital Signs Date Temp Pulse Resp B/P (MAP) Pulse Ox O2 O2 Flow FiO2 Time Delivery Rate 08/25/18 99.1 79 20 114/62 100 Mechanical 12:00 (79) Ventilator 08/25/18 40 12:00 Intake and Output 08/24/18 08/24/18 08/25/18 1515:00 23:00 07:00 IntakeIntake Total 501.328 ml 210.164 ml 268.33 ml OutputOutput Total 950 ml 790 ml 950 ml BalanceBalance -448.672 ml -579.836 ml -681.67 ml Results Result Diagram: 08/25/18 0400 08/25/18 0400 Results 24hrs Laboratory Tests Test 08/25/18 04:00 White Blood Count 17.4 H Red Blood Count 4.63 L Hemoglobin 10.6 L Hematocrit 39.7 L Mean Corpuscular Volume 85.7 Mean Corpuscular Hemoglobin 22.9 L Mean Corpuscular Hemoglobin Concent 26.7 L Red Cell Distribution Width 16.5 H Platelet Count 333 Mean Platelet Volume 9.1 Immature Granulocytes % 0.700 H Neutrophils % 85.8 H Lymphocytes % 4.1 L Monocytes % 9.3 Eosinophils % 0.0 Basophils % 0.1 Nucleated Red Blood Cells % 0.0 Immature Granulocytes # 0.130 H Neutrophils # 15.0 H Lymphocytes # 0.7 L Monocytes # 1.6 H Eosinophils # 0.0 Basophils # 0.0 Nucleated Red Blood Cells # 0.0 Sodium Level 143 Potassium Level 4.4 Chloride Level 102 Carbon Dioxide Level 39 H Anion Gap 2 #L Blood Urea Nitrogen 33 H Creatinine 0.77 Est Glomerular Filtrat Rate mL/min > 60 Glucose Level 142 Calcium Level 9.4 Phosphorus Level 4.7 Magnesium Level 2.2 Medications Medication Current Medications IV Flush (NS 3 ml) 3 ml PER PROTOCOL IV ; Start 08/08/18 at 17:30 Ondansetron HCl (Zofran Inj) 4 mg Q6H PRN IV NAUSEA; Start 08/08/18 at 17:30 Haloperidol (Haldol) 5 mg PRN PRN IM AGGITATED Last administered on 08/16/18 08:32; Admin Dose 5 MG; Start 08/08/18 at 22:00 Propofol 100 ml @ 6.111 mls/ hr Q12H IV Last administered on 08/25/18 11:16; Admin Dose 22 MLS/HR; Start 08/09/18 at 05:30 Fentanyl 100 ml @ 2.5 mls/hr TITRATE IV Last administered on 08/24/18 21:38; Admin Dose 7.5 MLS/HR; Start 08/09/18 at 06:30 Enoxaparin Sodium (Lovenox) 40 mg Q12H SC Last administered on 08/25/18 08:54; Admin Dose 40 MG; Start 08/09/18 at 21:00 Famotidine (Pepcid) 20 mg BID GTB Last administered on 08/25/18 08:51; Admin Dose 20 MG; Start 08/12/18 at 09:00 Midazolam HCl 50 ml @ 1 mls/hr TITRATE IV Last administered on 08/25/18 11:49; Admin Dose 4 MLS/HR; Start 08/13/18 at 08:30 Docusate Sodium (Colace Liquid Cup) 200 mg BID NGT Last administered on 08/24/18 21:04; Admin Dose 200 MG; Start 08/14/18 at 21:00 Polyethylene Glycol (Miralax) 17 gm DAILY GTB Last administered on 08/23/18 08:51; Admin Dose 17 GM; Start 08/17/18 at 09:00 Naphazoline HCl (Clear Eyes / Naphcon) 2 drop QID BOTH EYES Last administered on 08/25/18 08:50; Admin Dose 2 DROP; Start 08/16/18 at 18:14 Acetaminophen (Tylenol Liquid) 650 mg Q6H PRN NGT MILD PAIN(1-3)OR ELEVATED TEMP Last administered on 08/24/18 22:23; Admin Dose 650 MG; Start 08/17/18 at 00:57 Colistimethate Sodium 75 mg/ Sodium Chloride 100 ml @ 200 mls/hr Q12 IVPB Last administered on 08/25/18 08:51; Admin Dose 200 MLS/HR; Start 08/18/18 at 14:00 Fluconazole (Diflucan) 100 mg DAILY PO Last administered on 08/25/18 08:51; Admin Dose 100 MG; Start 08/23/18 at 15:00 Methylprednisolone Sodium Succinate (Solu-Medrol) 40 mg Q12 IV ; Start 08/25/18 at 21:00 JOCELYN VILLALTA NP Aug 25, 2018 12:25
--- NOTE | 2018-08-25 13:24 | CONS ---
Consult Date/Type/Reason Admit Date/Time Aug 08, 2018 at 17:18 Initial Consult Date 08/09/18 Type of Consult Pulmonary Date/Time of Note DATE: 08/25/18 TIME: 13:23 Subjective Patient stable following tracheostomy placement.No respiratory distress at present. Objective Vital Signs Date Temp Pulse Resp B/P (MAP) Pulse Ox O2 O2 Flow FiO2 Time Delivery Rate 08/25/18 76 12:00 08/25/18 99.1 20 114/62 100 Mechanical 12:00 (79) Ventilator 08/25/18 40 12:00 Intake and Output 08/24/18 08/24/18 08/25/18 1515:00 23:00 07:00 IntakeIntake Total 501.328 ml 210.164 ml 268.33 ml OutputOutput Total 950 ml 790 ml 950 ml BalanceBalance -448.672 ml -579.836 ml -681.67 ml Exam GENERAL: Morbidly obese gentleman on mechanical ventilation via tracheostomy VITAL SIGNS: per chart NECK: Supple. No JVD or lymphadenopathy. CARDIAC EXAM: S1, S2. No added sounds or murmurs. CHEST: clear bilaterally, No added sounds, rales or wheezes ABDOMEN: Soft, nontender. No guarding or rebound. EXTREMITIES: No cyanosis, clubbing or edema. NEUROLOGIC: Generalized weakness. No focal deficits. Vent Setting Ventilator Support Mode: AC Fraction of Inspired Oxygen pe: 40 Positive End Expiratory Pressu: 8.0 Results/Medications Result Diagram: 08/25/18 0400 08/25/18 0400 Results 24 hrs Laboratory Tests Test 08/25/18 04:00 White Blood Count 17.4 H Red Blood Count 4.63 L Hemoglobin 10.6 L Hematocrit 39.7 L Mean Corpuscular Volume 85.7 Mean Corpuscular Hemoglobin 22.9 L Mean Corpuscular Hemoglobin Concent 26.7 L Red Cell Distribution Width 16.5 H Platelet Count 333 Mean Platelet Volume 9.1 Immature Granulocytes % 0.700 H Neutrophils % 85.8 H Lymphocytes % 4.1 L Monocytes % 9.3 Eosinophils % 0.0 Basophils % 0.1 Nucleated Red Blood Cells % 0.0 Immature Granulocytes # 0.130 H Neutrophils # 15.0 H Lymphocytes # 0.7 L Monocytes # 1.6 H Eosinophils # 0.0 Basophils # 0.0 Nucleated Red Blood Cells # 0.0 Sodium Level 143 Potassium Level 4.4 Chloride Level 102 Carbon Dioxide Level 39 H Anion Gap 2 #L Blood Urea Nitrogen 33 H Creatinine 0.77 Est Glomerular Filtrat Rate mL/min > 60 Glucose Level 142 Calcium Level 9.4 Phosphorus Level 4.7 Magnesium Level 2.2 Medications Current Medications IV Flush (NS 3 ml) 3 ml PER PROTOCOL IV ; Start 08/08/18 at 17:30 Ondansetron HCl (Zofran Inj) 4 mg Q6H PRN IV NAUSEA; Start 08/08/18 at 17:30 Haloperidol (Haldol) 5 mg PRN PRN IM AGGITATED Last administered on 08/16/18 08:32; Admin Dose 5 MG; Start 08/08/18 at 22:00 Propofol 100 ml @ 6.111 mls/ hr Q12H IV Last administered on 08/25/18 11:16; Admin Dose 22 MLS/HR; Start 08/09/18 at 05:30 Fentanyl 100 ml @ 2.5 mls/hr TITRATE IV Last administered on 08/24/18 21:38; Admin Dose 7.5 MLS/HR; Start 08/09/18 at 06:30 Enoxaparin Sodium (Lovenox) 40 mg Q12H SC Last administered on 08/25/18 08:54; Admin Dose 40 MG; Start 08/09/18 at 21:00 Famotidine (Pepcid) 20 mg BID GTB Last administered on 08/25/18 08:51; Admin Dose 20 MG; Start 08/12/18 at 09:00 Midazolam HCl 50 ml @ 1 mls/hr TITRATE IV Last administered on 08/25/18 11:49; Admin Dose 4 MLS/HR; Start 08/13/18 at 08:30 Docusate Sodium (Colace Liquid Cup) 200 mg BID NGT Last administered on 08/24/18 21:04; Admin Dose 200 MG; Start 08/14/18 at 21:00 Polyethylene Glycol (Miralax) 17 gm DAILY GTB Last administered on 08/23/18 08:51; Admin Dose 17 GM; Start 08/17/18 at 09:00 Naphazoline HCl (Clear Eyes / Naphcon) 2 drop QID BOTH EYES Last administered on 08/25/18 08:50; Admin Dose 2 DROP; Start 08/16/18 at 18:14 Acetaminophen (Tylenol Liquid) 650 mg Q6H PRN NGT MILD PAIN(1-3)OR ELEVATED TEMP Last administered on 08/24/18at 22:23; Admin Dose 650 MG; Start 08/17/18 at 00:57 Colistimethate Sodium 75 mg/ Sodium Chloride 100 ml @ 200 mls/hr Q12 IVPB Last administered on 08/25/18 08:51; Admin Dose 200 MLS/HR; Start 08/18/18 at 14:00 Fluconazole (Diflucan) 100 mg DAILY PO Last administered on 08/25/18 08:51; Admin Dose 100 MG; Start 08/23/18 at 15:00 Methylprednisolone Sodium Succinate (Solu-Medrol) 40 mg Q12 IV ; Start 08/25/18 at 21:00 Assessment/Plan Hospital Course (Demo Recall) Assessment 1. Acute on chronic hypoxemic and hypercapnic respiratory failure, failed multiple weaning trials status post tracheostomy 2. Likely component of diastolic dysfunction 3. History of obesity hypoventilation syndrome and probable obstructive sleep apnea Plan 1. Continue mechanical ventilation via tracheostomy 2. Status post G-tube placement resume tube feeding 3. Decrease fentanyl and Versed sedation. 4. DVT and GI prophylaxis Critical care time 40 minutes JULIETH PUENTE MD, [facility] Aug 25, 2018 13:24
[2018-08-25] MEDS: FENTAnyl (DRIP) 1000 mcg/100mL 100 ML IV SCH (13:42)
--- NOTE | 2018-08-25 16:12 | PN ---
Date/Time of Note Date/Time of Note DATE: 08/25/18 TIME: 16:09 Assessment/Plan VTE Prophylaxis Risk score (from Ns)>0 risk: 11 SCD applied (from Ns): No SCD contraindicated: other (no) Pharmacological prophylaxis: LMWH Lines/Catheters IV Catheter Type (from Nrs): PICC Line Central line still needed: Yes Urinary Cath still in place: Yes Reason Cath still needed: other (indicate) (obese) Assessment/Plan Assessment/Plan 32M morbidly obese presents with hypercapnic respiratory failure and pneumonia. #Hypoxic and hypercapnic respiratory failure - Likely from obesity (ANDREW), exacerbated by likely pneumonia - Intubated 08/09 -has been on broad-spectrum antibiotics-and respiratory culture came back multidrug-resistant acinetobacter - For now continue on mechanical ventilation via pulmonary recommendations - PEG placed 08/23 - Trach 08/24. - May be candidate for [place]. # Pneumonia- Bilateral patchy infiltrates on CXR,WBC 16 on admission - on broad-spectrum antibiotics for MDR actinobacter PNA - Monitor, continue current antibiotics, follow up pulmonary and follow-up ID recommendations. - Unfortunately patient exceeds the weight limit for CT scanner DVT: lovenox GI: Protonix IV Critical care time spent in patient care today equals 40 minutes. Result Diagram: 08/25/18 0400 08/25/18 0400 Subjective 24 Hr Interval Summary Free Text/Dictation Got trach yesterday; had uneventful night. This morning slowly being weaned off sedation. Exam/Review of Systems Exam Vitals Vital Signs Date Temp Pulse Resp B/P (MAP) Pulse Ox O2 O2 Flow FiO2 Time Delivery Rate 08/25/18 91 22 108/59 98 15:30 (75) 08/25/18 Mechanical 15:00 Ventilator 08/25/18 99.1 12:00 08/25/18 40 12:00 Intake and Output 08/24/18 08/24/18 08/25/18 1515:00 23:00 07:00 IntakeIntake Total 501.328 ml 210.164 ml 268.33 ml OutputOutput Total 950 ml 790 ml 950 ml BalanceBalance -448.672 ml -579.836 ml -681.67 ml Exam Gen: Morbidly obese man lying in bed trached, sedated. Neck: Obese, no lymphadenopathy appreciated HEENT: Clear oropharynx, moist mucous membranes. Fresh trach in place. Card: Regular rate and rhythm, distant heart sounds Pulm: distant lung sounds. Abd: Morbidly obese, soft, nontender. PEG in place clean/dry/intact Ext: LE edema and redness have resolved. Medications Medication Current Medications IV Flush (NS 3 ml) 3 ml PER PROTOCOL IV ; Start 08/08/18 at 17:30 Ondansetron HCl (Zofran Inj) 4 mg Q6H PRN IV NAUSEA; Start 08/08/18 at 17:30 Haloperidol (Haldol) 5 mg PRN PRN IM AGGITATED Last administered on 08/16/18 08:32; Admin Dose 5 MG; Start 08/08/18 at 22:00 Propofol 100 ml @ 6.111 mls/ hr Q12H IV Last administered on 08/25/18 11:16; Admin Dose 22 MLS/HR; Start 08/09/18 at 05:30 Fentanyl 100 ml @ 2.5 mls/hr TITRATE IV Last administered on 08/25/18 13:42; Admin Dose 5 MLS/HR; Start 08/09/18 at 06:30 Enoxaparin Sodium (Lovenox) 40 mg Q12H SC Last administered on 08/25/18 08:54; Admin Dose 40 MG; Start 08/09/18 at 21:00 Famotidine (Pepcid) 20 mg BID GTB Last administered on 08/25/18 08:51; Admin Dose 20 MG; Start 08/12/18 at 09:00 Midazolam HCl 50 ml @ 1 mls/hr TITRATE IV Last administered on 08/25/18 11:49; Admin Dose 4 MLS/HR; Start 08/13/18 at 08:30 Docusate Sodium (Colace Liquid Cup) 200 mg BID NGT Last administered on 08/24/18 21:04; Admin Dose 200 MG; Start 08/14/18 at 21:00 Polyethylene Glycol (Miralax) 17 gm DAILY GTB Last administered on 08/23/18 08:51; Admin Dose 17 GM; Start 08/17/18 at 09:00 Naphazoline HCl (Clear Eyes / Naphcon) 2 drop QID BOTH EYES Last administered on 08/25/18 13:37; Admin Dose 2 DROP; Start 08/16/18 at 18:14 Acetaminophen (Tylenol Liquid) 650 mg Q6H PRN NGT MILD PAIN(1-3)OR ELEVATED TEMP Last administered on 08/24/18 22:23; Admin Dose 650 MG; Start 08/17/18 at 00:57 Colistimethate Sodium 75 mg/ Sodium Chloride 100 ml @ 200 mls/hr Q12 IVPB Last administered on 08/25/18 08:51; Admin Dose 200 MLS/HR; Start 08/18/18 at 14:00 Fluconazole (Diflucan) 100 mg DAILY PO Last administered on 08/25/18at 08:51; Admin Dose 100 MG; Start 08/23/18 at 15:00 Methylprednisolone Sodium Succinate (Solu-Medrol) 40 mg Q12 IV ; Start 08/25/18 at 21:00 ELIANE PEARSON MD Aug 25, 2018 16:12
--- NOTE | 2018-08-25 17:59 | PN ---
Date/Time of Note Date/Time of Note DATE: 08/25/18 TIME: 17:58 Assessment/Plan Lines/Catheters IV Catheter Type (from Nrsg): PICC Line Santiago in Place (from Nrsg): Yes Assessment/Plan Assessment/Plan Status post tracheostomy Tracheostomy site clean no signs of bleeding Continue vent support Tracheostomy care Pulmonary toilet Subjective 24 Hr Interval Summary Constitutional: improved Pain Control: mild Exam/Review of Systems Vital Signs Vitals Vital Signs Date Temp Pulse Resp B/P (MAP) Pulse Ox O2 O2 Flow FiO2 Time Delivery Rate 08/25/18 106 18 116/66 96 17:30 (83) 08/25/18 Mechanical 17:00 Ventilator 08/25/18 99.9 16:00 08/25/18 40 12:00 Intake and Output 08/24/18 08/24/18 08/25/18 1515:00 23:00 07:00 IntakeIntake Total 501.328 ml 210.164 ml 268.33 ml OutputOutput Total 950 ml 790 ml 950 ml BalanceBalance -448.672 ml -579.836 ml -681.67 ml Exam Eyes: nl conjunctiva, EOMI, nl lids, nl sclera ENMT: nl external ears & nose, nl lips & teeth, nl nasal mucosa & septum, mucosa pink and moist Neck: supple, non-tender Respiratory: clear to auscultation, normal air movement Cardiovascular: regular rate and rhythm, nl pulses Gastrointestinal: soft, nl liver, spleen, non-tender Musculoskeletal: nl extremities to inspection, nl gait and stance Results Result Diagram: 08/25/1839908/25/18399 TIMMY DALAL MD Aug 25, 2018 17:59
--- NOTE | 2018-08-25 18:05 | OPR ---
Date/Time of Note Date/Time of Note DATE: 08/25/18 TIME: 18:00 Operative Report Procedure Date: Aug 24, 2018 Preoperative Diagnosis Resp Failure Postoperative Diagnosis same Operation/Procedure Performed Tracheostomy Surgeon see signature line Manager Strategy & Account none Anesthesia Type: general Estimated Blood Loss: minimal Transfusion none Specimen none Grafts/Implants none Complications none Pt Condition Post Procedure: critical Disposition: PACU Procedure Description Patient was placed in supine position prepped and draped in usual sterile fashion Access was gained into the trachea Guidewire was advanced through without any difficulties I made a 2 cm incision 1 fingerbreadth superior to the sternal notch at the site of the needle stick Trachea and the subcutaneous tissues were dilated using progressively larger dilators Endotracheal tube was removed 8 cuffed tracheostomy tube advanced into the trachea secured to skin using 4 nylon sutures and a trach tie Protective padding was applied Patient tolerated procedure well TIMMY DALAL MD Aug 25, 2018 18:05
[2018-08-26] VITALS (37 sets, daily range): BP systolic 89–132; BP diastolic 41–80; PULSE 82–126; RESP 15–32
[2018-08-26] MEDS: PROPOFOL 100 ML IV SCH ×4 (03:57→21:30)
[2018-08-26] MEDS: FENTAnyl (DRIP) 1000 mcg/100mL 100 ML IV SCH ×2 (05:31→16:48)
[2018-08-26] MEDS: METHYLPREDNISOLONE 40 MG INJ IV SCH ×2 (07:57→20:22)
[2018-08-26] MEDS: NAPHAZOLINE 0.012% 15 ML OPH BOTH EYES SCH ×4 (07:57→20:22)
[2018-08-26] MEDS: ACETAMINOPHEN 650MG/20.3ML CUP NGT PRN (07:57)
[2018-08-26] MEDS: FLUCONAZOLE 100 MG TAB PO SCH (07:58)
[2018-08-26] MEDS: COLISTIMETHATE 75 MG in SOD CHLORIDE 0.9% 100 ML IVPB SCH (07:58)
[2018-08-26] MEDS: FAMOTIDINE 20 MG TAB GTB SCH ×2 (07:58→20:22)
[2018-08-26] MEDS: ENOXAPARIN 40 MG/0.4 ML SYG SC SCH ×2 (08:08→20:27)
[2018-08-26] MEDS: POLYETHYLENE GLYCOL 17 GM PACKET GTB SCH (08:57)
[2018-08-26] MEDS: DOCUSATE SODIUM 10 MG/ML (10ML CUP) NGT SCH ×2 (08:57→20:22)
--- NOTE | 2018-08-26 10:25 | PN ---
Date/Time of Note Date/Time of Note DATE: 08/26/18 TIME: 10:18 Assessment/Plan VTE Prophylaxis Risk score (from Ns)>0 risk: 8 SCD applied (from Ns): No SCD contraindicated: low risk/ambulating Pharmacological prophylaxis: LMWH Lines/Catheters IV Catheter Type (from [facility]): PICC Line Central line still needed: Yes Urinary Cath still in place: Yes Reason Cath still needed: other (indicate) (mechanical vent) Assessment/Plan Assessment/Plan 32M morbidly obese presents with hypercapnic respiratory failure and pneumonia. #Hypoxic and hypercapnic respiratory failure - Likely from obesity (ANDREW), exacerbated by likely pneumonia - Intubated 08/09 -has been on broad-spectrum antibiotics-and respiratory culture came back multidrug-resistant acinetobacter - For now continue on mechanical ventilation via pulmonary recommendations - PEG placed 08/23 - Trach 08/24. - Today with thick white secretions, jump in WBC and fever. # Pneumonia- Bilateral patchy infiltrates on CXR,WBC 16 on admission - on broad-spectrum antibiotics for MDR actinobacter PNA - Monitor, continue current antibiotics, follow up pulmonary and follow-up ID recommendations. - Unfortunately patient exceeds the weight limit for CT scanner DVT: lovenox GI: Protonix IV Critical care time spent in patient care today equals 40 minutes. Result Diagram: 08/26/1844208/26/18442 Subjective 24 Hr Interval Summary Free Text/Dictation Overnight febrile to 101.1. Large jump in WBC 17 -> 26. Blood cultures drawn yesterday afternoon. Off sedation this morning, patient with violent coughing and copious "pancake batter" sputum. Aggressive coughing caused one episode of emesis this morning. Exam/Review of Systems Exam Vitals Vital Signs Date Temp Pulse Resp B/P (MAP) Pulse Ox O2 O2 Flow FiO2 Time Delivery Rate 08/26/18 107 18 113/67 100 09:00 (82) 08/26/18 101.1 [employer] 08:00 l Ventilato r 08/26/18 40 08:00 Intake and Output 08/25/18 08/25/18 08/26/18 1414:59 22:59 06:59 IntakeIntake Total 981.214 ml 754.831 ml 675.664 ml OutputOutput Total 875 ml 830 ml 1310 ml BalanceBalance 106.214 ml -75.169 ml -634.336 ml Exam Gen: Morbidly obese man lying in bed trached, sedated. Neuro: Eyes open, tracking. Follows commands (thumbs up). Neck: Obese, no lymphadenopathy appreciated HEENT: Moist mucous membranes. Fresh trach in place. Copious thick white secretions from mouth. Card: Regular rate and rhythm, distant heart sounds Pulm: distant lung sounds. Abd: Morbidly obese, soft, nontender. PEG in place clean/dry/intact Ext: LE edema and redness have resolved. Medications Medication Current Medications IV Flush (NS 3 ml) 3 ml PER PROTOCOL IV ; Start 08/08/18 at 17:30 Ondansetron HCl (Zofran Inj) 4 mg Q6H PRN IV NAUSEA; Start 08/08/18 at 17:30 Haloperidol (Haldol) 5 mg PRN PRN IM AGGITATED Last administered on 08/16/18 08:32; Admin Dose 5 MG; Start 08/08/18 at 22:00 Propofol 100 ml @ 6.111 mls/ hr Q12H IV Last administered on 08/26/18 10:03; Admin Dose 18.333 MLS/HR; Start 08/09/18 at 05:30 Fentanyl 100 ml @ 2.5 mls/hr TITRATE IV Last administered on 08/26/18 05:31; Admin Dose 10 MLS/HR; Start 08/09/18 at 06:30 Enoxaparin Sodium (Lovenox) 40 mg Q12H SC Last administered on 08/26/18 08:08; Admin Dose 40 MG; Start 08/09/18 at 21:00 Famotidine (Pepcid) 20 mg BID GTB Last administered on 08/26/18 07:58; Admin Dose 20 MG; Start 08/12/18 at 09:00 Midazolam HCl 50 ml @ 1 mls/hr TITRATE IV Last administered on 08/25/18 11:49; Admin Dose 4 MLS/HR; Start 08/13/18 at 08:30 Docusate Sodium (Colace Liquid Cup) 200 mg BID NGT Last administered on 08/24/18 21:04; Admin Dose 200 MG; Start 08/14/18 at 21:00 Polyethylene Glycol (Miralax) 17 gm DAILY GTB Last administered on 08/23/18 08:51; Admin Dose 17 GM; Start 08/17/18 at 09:00 Naphazoline HCl (Clear Eyes / Naphcon) 2 drop QID BOTH EYES Last administered on 08/26/18 07:57; Admin Dose 2 DROP; Start 08/16/18 at 18:14 Acetaminophen (Tylenol Liquid) 650 mg Q6H PRN NGT MILD PAIN(1-3)OR ELEVATED TEMP Last administered on 08/26/18 07:57; Admin Dose 650 MG; Start 08/17/18 at 00:57 Colistimethate Sodium 75 mg/ Sodium Chloride 100 ml @ 200 mls/hr Q12 IVPB Last administered on 08/26/18 07:58; Admin Dose 200 MLS/HR; Start 08/18/18 at 14:00 Fluconazole (Diflucan) 100 mg DAILY PO Last administered on 08/26/18 07:58; Admin Dose 100 MG; Start 08/23/18 at 15:00 Methylprednisolone Sodium Succinate (Solu-Medrol) 40 mg Q12 IV Last administere d on 08/26/18 07:57; Admin Dose 40 MG; Start 08/25/18 at 21:00 ELIANE PEARSON MD Aug 26, 2018 10:25
--- NOTE | 2018-08-26 11:07 | CONS ---
Consult Date/Type/Reason Admit Date/Time Aug 08, 2018 at 17:18 Initial Consult Date 08/22/18 Type of Consultation: Pulm/CCM Date/Time of Note DATE: 08/26/18 TIME: 10:43 Subjective No events. Doing well. Fever noted. Copious secretions. Objective Vitals Vital Signs Date Temp Pulse Resp B/P (MAP) Pulse Ox O2 O2 Flow FiO2 Time Delivery Rate 08/26/18 107 18 113/67 100 09:00 (82) 08/26/18 101.1 [employer] 08:00 l Ventilato r 08/26/18 40 08:00 Intake and Output 08/25/18 08/25/18 08/26/18 1515:00 23:00 07:00 IntakeIntake Total 990.217 ml 756.331 ml 625.161 ml OutputOutput Total 800 ml 885 ml 1300 ml BalanceBalance 190.217 ml -128.669 ml -674.839 ml Exam HEENT: Neck supple; no JVD; no LAD; + trach CVS: RRR, S1 and S2 CHEST: Clear ABD: Obese, soft, NT, + BS EXT: ++ edema Results/Medications Result Diagram: 08/26/183 08/26/18 0443 Results 24 hrs Laboratory Tests Test 08/26/18 04:43 White Blood Count 26.2 #H Red Blood Count 4.80 Hemoglobin 10.9 L Hematocrit 40.7 L Mean Corpuscular Volume 84.8 Mean Corpuscular Hemoglobin 22.7 L Mean Corpuscular Hemoglobin Concent 26.8 L Red Cell Distribution Width 17.2 H Platelet Count 357 Mean Platelet Volume 9.3 Immature Granulocytes % 1.000 H Neutrophils % Segmented Neutrophils % (Manual) 89 H Band Neutrophils % (Manual) 5 H Lymphocytes % Lymphocytes % (Manual) 2 L Monocytes % Monocytes % (Manual) 4 Eosinophils % Basophils % Nucleated Red Blood Cells % 0.0 Immature Granulocytes # 0.270 H Neutrophils # Neutrophils # (Manual) 23.7 H Band Neutrophils # 1.3 H Lymphocytes (Manual) 0.5 L Lymphocytes # Monocytes # Monocytes # (Manual) 1.0 H Eosinophils # Basophils # Nucleated Red Blood Cells # Platelet Estimate NORMAL Polychromasia 1+ Hypochromasia 1+ Poikilocytosis 1+ Anisocytosis 1+ Stomatocytes 1+ Sodium Level 143 Potassium Level 3.6 Chloride Level 100 Carbon Dioxide Level 38 H Anion Gap 5 Blood Urea Nitrogen 29 H Creatinine 0.59 L Est Glomerular Filtrat Rate mL/min > 60 Glucose Level 132 Calcium Level 9.3 Home Meds No Active Prescriptions or Reported Meds Medications Current Medications IV Flush (NS 3 ml) 3 ml PER PROTOCOL IV ; Start 08/08/18 at 17:30 Ondansetron HCl (Zofran Inj) 4 mg Q6H PRN IV NAUSEA; Start 08/08/18 at 17:30 Haloperidol (Haldol) 5 mg PRN PRN IM AGGITATED Last administered on 08/16/18 08:32; Admin Dose 5 MG; Start 08/08/18 at 22:00 Propofol 100 ml @ 6.111 mls/ hr Q12H IV Last administered on 08/26/18 10:03; Admin Dose 18.333 MLS/HR; Start 08/09/18 at 05:30 Fentanyl 100 ml @ 2.5 mls/hr TITRATE IV Last administered on 08/26/18 05:31; Admin Dose 10 MLS/HR; Start 08/09/18 at 06:30 Enoxaparin Sodium (Lovenox) 40 mg Q12H SC Last administered on 08/26/18 08:08; Admin Dose 40 MG; Start 08/09/18 at 21:00 Famotidine (Pepcid) 20 mg BID GTB Last administered on 08/26/18 07:58; Admin Dose 20 MG; Start 08/12/18 at 09:00 Midazolam HCl 50 ml @ 1 mls/hr TITRATE IV Last administered on 08/25/18 11:49; Admin Dose 4 MLS/HR; Start 08/13/18 at 08:30 Docusate Sodium (Colace Liquid Cup) 200 mg BID NGT Last administered on 08/24/18 21:04; Admin Dose 200 MG; Start 08/14/18 at 21:00 Polyethylene Glycol (Miralax) 17 gm DAILY GTB Last administered on 08/23/18 08:51; Admin Dose 17 GM; Start 08/17/18 at 09:00 Naphazoline HCl (Clear Eyes / Naphcon) 2 drop QID BOTH EYES Last administered on 08/26/18 07:57; Admin Dose 2 DROP; Start 08/16/18 at 18:14 Acetaminophen (Tylenol Liquid) 650 mg Q6H PRN NGT MILD PAIN(1-3)OR ELEVATED TEMP Last administered on 08/26/18 07:57; Admin Dose 650 MG; Start 08/17/18 at 00:57 Colistimethate Sodium 75 mg/ Sodium Chloride 100 ml @ 200 mls/hr Q12 IVPB Last administered on 08/26/18 07:58; Admin Dose 200 MLS/HR; Start 08/18/18 at 14:00 Fluconazole (Diflucan) 100 mg DAILY PO Last administered on 08/26/18 07:58; Admin Dose 100 MG; Start 08/23/18 at 15:00 Methylprednisolone Sodium Succinate (Solu-Medrol) 40 mg Q12 IV Last administered on 08/26/18 07:57; Admin Dose 40 MG; Start 08/25/18 at 21:00 Assessment/Plan Assessment/Plan (Daily) IMP: 1. Acute on chronic hypoxemic and hypercapnic respiratory failure, failed multiple weaning trials status post tracheostomy 2. Likely component of diastolic dysfunction 3. History of obesity hypoventilation syndrome and probable obstructive sleep apnea 4. Leukocytosis 5. Anemia RECS: 1. Transition to CPAP 8 PS 10; if tolerates will transition soon to trach collar 2. Send sputum/trach aspirate GS/Cx 3. Stool C.Diff 4. Start seroquel; lower propofol and fentanyl 40 min cc time ANAHY BOWIE MD Aug 26, 2018 10:53
[2018-08-26] MEDS: QUETIAPINE 25 MG TAB GTB SCH ×2 (12:35→20:22)
--- NOTE | 2018-08-26 12:53 | CONS ---
Assessment/Plan Assessment/Plan Hospital Course (Demo Recall) Patient spiked a fever of 102 sputum culture were sent blood cultures not done. He is in no distress looks comfortable. WBC today 26.2 platelets 357 neutrophils 89 bands 5 BUN 29 creatinine 0.59 Microbiology: Blood and urine culture sent on August 24 negative sputum culture growing Acinetobacter Antimicrobials: Colistin, fluconazole Indwelling: Trach PEG Santiago catheter, PICC line Physical examination: This is a morbidly obese well-developed middle-aged man who is intubated sedated in no distress. Head atraumatic normocephalic, bucal mucosa dry, neck is obese. Chest rise symmetrical breath sounds diminished. Heart: S1-S2. Abdomen obese distended bowel sounds hypoactive. Extremities with edema Assessment: 1. Sepsis with ongoing fevers and worsening leukocytosis 2. Acute hypoxemic respiratory failure/ pneumonia 3. Morbid obesity 4. Sleep apnea with hypoventilation syndrome Plan: Clinically unchanged, will repeat blood cultures from PICC line, add empiric Flagyl as patient had episode of loose stools and send stool for C. difficile DEBORAH RN Consultation Date/Type/Reason Admit Date/Time Aug 08, 2018 at 17:18 Initial Consult Date 08/09/18 Type of Consult ID Date/Time of Note DATE: 08/26/18 TIME: 12:52 Exam/Review of Systems Exam Vitals Vital Signs Date Temp Pulse Resp B/P (MAP) Pulse Ox O2 O2 Flow FiO2 Time Delivery Rate 08/26/18 108 12:13 08/26/18 102.0 24 116/57 92 [employer] 12:00 (76) l Ventilato r 08/26/18 40 10:30 Intake and Output 08/25/18 08/25/18 08/26/18 1515:00 23:00 07:00 IntakeIntake Total 990.217 ml 756.331 ml 625.161 ml OutputOutput Total 800 ml 885 ml 1300 ml BalanceBalance 190.217 ml -128.669 ml -674.839 ml Results Result Diagram: 08/26/1844208/26/18442 Results 24hrs Laboratory Tests Test 08/26/18 04:43 White Blood Count 26.2 #H Red Blood Count 4.80 Hemoglobin 10.9 L Hematocrit 40.7 L Mean Corpuscular Volume 84.8 Mean Corpuscular Hemoglobin 22.7 L Mean Corpuscular Hemoglobin Concent 26.8 L Red Cell Distribution Width 17.2 H Platelet Count 357 Mean Platelet Volume 9.3 Immature Granulocytes % 1.000 H Neutrophils % Segmented Neutrophils % (Manual) 89 H Band Neutrophils % (Manual) 5 H Lymphocytes % Lymphocytes % (Manual) 2 L Monocytes % Monocytes % (Manual) 4 Eosinophils % Basophils % Nucleated Red Blood Cells % 0.0 Immature Granulocytes # 0.270 H Neutrophils # Neutrophils # (Manual) 23.7 H Band Neutrophils # 1.3 H Lymphocytes (Manual) 0.5 L Lymphocytes # Monocytes # Monocytes # (Manual) 1.0 H Eosinophils # Basophils # Nucleated Red Blood Cells # Platelet Estimate NORMAL Polychromasia 1+ Hypochromasia 1+ Poikilocytosis 1+ Anisocytosis 1+ Stomatocytes 1+ Sodium Level 143 Potassium Level 3.6 Chloride Level 100 Carbon Dioxide Level 38 H Anion Gap 5 Blood Urea Nitrogen 29 H Creatinine 0.59 L Est Glomerular Filtrat Rate mL/min > 60 Glucose Level 132 Calcium Level 9.3 Medications Medication Current Medications IV Flush (NS 3 ml) 3 ml PER PROTOCOL IV ; Start 08/08/18 at 17:30 Ondansetron HCl (Zofran Inj) 4 mg Q6H PRN IV NAUSEA; Start 08/08/18 at 17:30 Haloperidol (Haldol) 5 mg PRN PRN IM AGGITATED Last administered on 08/16/18at 08:32; Admin Dose 5 MG; Start 08/08/18 at 22:00 Propofol 100 ml @ 6.111 mls/ hr Q12H IV Last administered on 08/26/18at 10:03; Admin Dose 18.333 MLS/HR; Start 08/09/18 at 05:30 Fentanyl 100 ml @ 2.5 mls/hr TITRATE IV Last administered on 08/26/18 05:31; Admin Dose 10 MLS/HR; Start 08/09/18 at 06:30 Enoxaparin Sodium (Lovenox) 40 mg Q12H SC Last administered on 08/26/18at 08:08; Admin Dose 40 MG; Start 08/09/18 at 21:00 Famotidine (Pepcid) 20 mg BID GTB Last administered on 08/26/18at 07:58; Admin Dose 20 MG; Start 08/12/18 at 09:00 Midazolam HCl 50 ml @ 1 mls/hr TITRATE IV Last administered on 08/25/18 11:49; Admin Dose 4 MLS/HR; Start 08/13/18 at 08:30 Docusate Sodium (Colace Liquid Cup) 200 mg BID NGT Last administered on 08/24/18 21:04; Admin Dose 200 MG; Start 08/14/18 at 21:00 Polyethylene Glycol (Miralax) 17 gm DAILY GTB Last administered on 08/23/18 08:51; Admin Dose 17 GM; Start 08/17/18 at 09:00 Naphazoline HCl (Clear Eyes / Naphcon) 2 drop QID BOTH EYES Last administered on 08/26/18 12:36; Admin Dose 2 DROP; Start 08/16/18 at 18:14 Acetaminophen (Tylenol Liquid) 650 mg Q6H PRN NGT MILD PAIN(1-3)OR ELEVATED TEMP Last administered on 08/26/18 07:57; Admin Dose 650 MG; Start 08/17/18 at 00:57 Colistimethate Sodium 75 mg/ Sodium Chloride 100 ml @ 200 mls/hr Q12 IVPB Last administered on 08/26/18 07:58; Admin Dose 200 MLS/HR; Start 08/18/18 at 14:00 Fluconazole (Diflucan) 100 mg DAILY PO Last administered on 08/26/18 07:58; Admin Dose 100 MG; Start 08/23/18 at 15:00 Methylprednisolone Sodium Succinate (Solu-Medrol) 40 mg Q12 IV Last administ ered on 08/26/18 07:57; Admin Dose 40 MG; Start 08/25/18 at 21:00 Quetiapine Fumarate (Seroquel) 50 mg BID GTB Last administered on 08/26/18 12:35; Admin Dose 50 MG; Start 08/26/18 at 11:30 JOCELYN VILLALTA NP Aug 26, 2018 12:53
[2018-08-26] MEDS: metroNIDAZOLE 500 MG TAB NGT SCH ×2 (14:01→22:00)
--- NOTE | 2018-08-26 14:06 | PN ---
Date/Time of Note Date/Time of Note DATE: 08/26/18 TIME: 14:05 Assessment/Plan Lines/Catheters IV Catheter Type (from Nrsg): PICC Line Santiago in Place (from Nrsg): Yes Assessment/Plan Assessment/Plan Status post tracheostomy Tracheostomy site clean no signs of bleeding Continue vent support Tracheostomy care Pulmonary toilet Discussed with the mother Subjective Subjective 24 Hr Interval Summary Constitutional: no complaints, improved, ambulates, BM, flatus, urine output Pain Control: mild Exam/Review of Systems Vital Signs Vitals Vital Signs Date Temp Pulse Resp B/P (MAP) Pulse Ox O2 O2 Flow FiO2 Time Delivery Rate 08/26/18 108 12:13 08/26/18 102.0 24 116/57 92 [employer] 12:00 (76) l Ventilato r 08/26/18 40 10:30 Intake and Output 08/25/18 08/25/18 08/26/18 1515:00 23:00 07:00 IntakeIntake Total 990.217 ml 756.331 ml 625.161 ml OutputOutput Total 800 ml 885 ml 1300 ml BalanceBalance 190.217 ml -128.669 ml -674.839 ml Exam Head: normocephalic, atraumatic Eyes: nl conjunctiva, EOMI, nl lids, nl sclera ENMT: nl external ears & nose, nl lips & teeth, nl nasal mucosa & septum, mucosa pink and moist Neck: supple, non-tender Respiratory: clear to auscultation, normal air movement Cardiovascular: regular rate and rhythm, nl pulses Gastrointestinal: soft, nl liver, spleen, non-tender Musculoskeletal: nl extremities to inspection, nl gait and stance Results Result Diagram: 08/26/1844208/26/18442 TIMMY DALAL MD Aug 26, 2018 14:06
[2018-08-26] MEDS: COLISTIMETHATE 200 MG in SOD CHLORIDE 0.9% 100 ML IVPB SCH (20:24)
[2018-08-26] MEDS: LEVALBUTEROL (HFA) 15 GM INHALER INH PRN (21:18)
[2018-08-26] MEDS: IPRATROPIUM (HFA) 12.9 GM INHALER INH PRN (21:18)
[2018-08-27] VITALS (37 sets, daily range): BP systolic 52–136; BP diastolic 29–77; PULSE 84–145; RESP 14–25
[2018-08-27] MEDS: LEVALBUTEROL (HFA) 15 GM INHALER INH PRN ×2 (01:12→05:08)
[2018-08-27] MEDS: IPRATROPIUM (HFA) 12.9 GM INHALER INH PRN ×2 (01:12→05:08)
[2018-08-27] MEDS: PROPOFOL 100 ML IV SCH ×5 (01:49→21:38)
[2018-08-27] MEDS: FENTAnyl (DRIP) 1000 mcg/100mL 100 ML IV SCH ×2 (03:22→15:24)
[2018-08-27] MEDS: ACETAMINOPHEN 650MG/20.3ML CUP NGT PRN ×3 (04:18→20:16)
[2018-08-27] MEDS: metroNIDAZOLE 500 MG TAB NGT SCH ×3 (05:20→21:38)
[2018-08-27] MEDS: POLYETHYLENE GLYCOL 17 GM PACKET GTB SCH (09:00)
[2018-08-27] MEDS: DOCUSATE SODIUM 10 MG/ML (10ML CUP) NGT SCH ×2 (10:00→20:16)
[2018-08-27] MEDS: METHYLPREDNISOLONE 40 MG INJ IV SCH ×2 (10:35→20:14)
[2018-08-27] MEDS: QUETIAPINE 25 MG TAB GTB SCH (10:36)
[2018-08-27] MEDS: FLUCONAZOLE 100 MG TAB PO SCH (10:36)
[2018-08-27] MEDS: FAMOTIDINE 20 MG TAB GTB SCH ×2 (10:36→20:15)
[2018-08-27] MEDS: COLISTIMETHATE 200 MG in SOD CHLORIDE 0.9% 100 ML IVPB SCH ×2 (10:37→20:16)
[2018-08-27] MEDS: NAPHAZOLINE 0.012% 15 ML OPH BOTH EYES SCH ×4 (10:37→20:15)
[2018-08-27] MEDS: ENOXAPARIN 40 MG/0.4 ML SYG SC SCH ×2 (10:38→20:25)
--- NOTE | 2018-08-27 12:12 | CONS ---
Consult Date/Type/Reason Admit Date/Time Aug 08, 2018 at 17:18 Initial Consult Date 08/22/18 Type of Consultation: Pulm/CCM Date/Time of Note DATE: 08/27/18 TIME: 12:10 Subjective Tolerating CPAP with PS. No events overnight. ABG reviewed. Objective Vitals Vital Signs Date Temp Pulse Resp B/P (MAP) Pulse Ox O2 O2 Flow FiO2 Time Delivery Rate 08/27/18 112 19 127/72 Mechanical 09:00 (90) Ventilator 08/27/18 97 08:00 08/27/18 40 08:00 08/27/18 98.6 05:23 Intake and Output 08/26/18 08/26/18 08/27/18 1515:00 23:00 07:00 IntakeIntake Total 526.64 ml 188.992 ml 170.995 ml OutputOutput Total 950 ml 850 ml 825 ml BalanceBalance -423.36 ml -661.008 ml -654.005 ml Exam HEENT: Neck supple; no JVD; no LAD; + trach CVS: RRR, S1 and S2 CHEST: Clear ABD: Obese, soft, NT, + BS EXT: ++ edema Results/Medications Result Diagram: 08/27/186 08/27/18 0436 Results 24 hrs Laboratory Tests Test 08/27/18 04:36 08/27/18 05:00 White Blood Count 22.5 H Red Blood Count 4.55 L Hemoglobin 10.5 L Hematocrit 38.8 L Mean Corpuscular Volume 85.3 Mean Corpuscular Hemoglobin 23.1 L Mean Corpuscular Hemoglobin Concent 27.1 L Red Cell Distribution Width 17.5 H Platelet Count 324 Mean Platelet Volume 9.1 Immature Granulocytes % 1.700 H Neutrophils % 86.2 H Lymphocytes % 4.1 L Monocytes % 7.8 Eosinophils % 0.0 Basophils % 0.2 Nucleated Red Blood Cells % 0.0 Immature Granulocytes # 0.380 H Neutrophils # 19.4 H Lymphocytes # 0.9 Monocytes # 1.8 H Eosinophils # 0.0 Basophils # 0.0 Nucleated Red Blood Cells # 0.0 Sodium Level 143 Potassium Level 3.6 Chloride Level 102 Carbon Dioxide Level Anion Gap 3 L Blood Urea Nitrogen 23 H Creatinine 0.53 L Est Glomerular Filtrat Rate mL/min > 60 Glucose Level 123 Lactic Acid Level 1.0 Calcium Level 9.2 Phosphorus Level 3.1 Magnesium Level 2.0 Blood Gas Specimen Source Blood arterial Arterial Blood Date Drawn 08/27/2018 4:45:21 AM Arterial Blood pH (Temp corrected) 7.440 Arterial Blood pCO2 (Temp correct) 55.8 H Arterial Blood pO2 (Temp corrected) 74.9 L Arterial Blood HCO3 37.0 H Arterial Blood Base Excess 11.0 H Arterial Blood Oxygen Saturation 95.3 James Test ACCEPTAB Arterial Blood Gas Puncture Site Right Radial Arterial Blood Carboxyhemoglobin 1.7 Arterial Blood Methemoglobin 0.2 Blood Gas A-a O2 Differential 146.1 H Oxyhemoglobin Percent 93.5 Blood Gas Temperature 37.0 Blood Gas Actual Respiration Rate 20 Blood Gas Modality VENT - CPAP FiO2 40.0 Blood Gas Low PEEP Setting 8.0 Blood Gas Pressure Support 10 Blood Gas Notified Whom MA Blood Gas Notified Time 08/27/2018 4:57:16 AM Home Meds No Active Prescriptions or Reported Meds Medications Current Medications IV Flush (NS 3 ml) 3 ml PER PROTOCOL IV ; Start 08/08/18 at 17:30 Ondansetron HCl (Zofran Inj) 4 mg Q6H PRN IV NAUSEA; Start 08/08/18 at 17:30 Haloperidol (Haldol) 5 mg PRN PRN IM AGGITATED Last administered on 08/16/18at 08:32; Admin Dose 5 MG; Start 08/08/18 at 22:00 Propofol 100 ml @ 6.111 mls/ hr Q12H IV Last administered on 08/27/18at 01:49; Admin Dose 18.333 MLS/HR; Start 08/09/18 at 05:30 Fentanyl 100 ml @ 2.5 mls/hr TITRATE IV Last administered on 08/27/18 03:22; Admin Dose 8 MLS/HR; Start 08/09/18 at 06:30 Enoxaparin Sodium (Lovenox) 40 mg Q12H SC Last administered on 08/27/18at 10:38; Admin Dose 40 MG; Start 08/09/18 at 21:00 Famotidine (Pepcid) 20 mg BID GTB Last administered on 08/27/18at 10:36; Admin Dose 20 MG; Start 08/12/18 at 09:00 Midazolam HCl 50 ml @ 1 mls/hr TITRATE IV Last administered on 08/25/18 11:49; Admin Dose 4 MLS/HR; Start 08/13/18 at 08:30 Docusate Sodium (Colace Liquid Cup) 200 mg BID NGT Last administered on 08/26/18 20:22; Admin Dose 200 MG; Start 08/14/18 at 21:00 Polyethylene Glycol (Miralax) 17 gm DAILY GTB Last administered on 08/23/18 08:51; Admin Dose 17 GM; Start 08/17/18 at 09:00 Naphazoline HCl (Clear Eyes / Naphcon) 2 drop QID BOTH EYES Last administered on 08/27/18 10:37; Admin Dose 2 DROP; Start 08/16/18 at 18:14 Acetaminophen (Tylenol Liquid) 650 mg Q6H PRN NGT MILD PAIN(1-3)OR ELEVATED TEMP Last administered on 08/27/18 04:18; Admin Dose 650 MG; Start 08/17/18 at 00:57 Fluconazole (Diflucan) 100 mg DAILY PO Last administered on 08/27/18 10:36; Admin Dose 100 MG; Start 08/23/18 at 15:00 Methylprednisolone Sodium Succinate (Solu-Medrol) 40 mg Q12 IV Last administered on 08/27/18 10:35; Admin Dose 40 MG; Start 08/25/18 at 21:00 Quetiapine Fumarate (Seroquel) 50 mg BID GTB Last administered on 08/27/18 10:36; Admin Dose 50 MG; Start 08/26/18 at 11:30 Metronidazole (Flagyl) 500 mg Q8 NGT Last administered on 08/27/18 05:20; Admin Dose 500 MG; Start 08/26/18 at 14:00 Colistimethate Sodium 200 mg/ Sodium Chloride 100 ml @ 200 mls/hr Q12 IVPB Last administered on 08/27/18 10:37; Admin Dose 200 MLS/HR; Start 08/26/18 at 21:00 Levalbuterol (Xopenex Hfa) 4 puff Q4H RESP THERAPY PRN INH SHORTNESS OF BREATH Last administered on 08/27/18 05:08; Admin Dose 4 PUFF; Start 08/26/18 at 20:00 Ipratropium [place] (Atrovent Hfa) 2 puff QID RESP THERAPY PRN INH SHORTNESS OF BREATH Last administered on 08/27/18at 05:08; Admin Dose 2 PUFF; Start 08/26/18 at 20:00 Metoclopramide HCl (Reglan) 5 mg BID IV ; Start 08/27/18 at 21:00 Assessment/Plan Assessment/Plan (Daily) IMP: 1. Acute on chronic hypoxemic and hypercapnic respiratory failure, failed multiple weaning trials status post tracheostomy 2. Component of diastolic dysfunction 3. History of obesity hypoventilation syndrome and probable obstructive sleep apnea 4. Leukocytosis 5. Anemia RECS: 1. Transition to trach collar today 2. Follow-up sputum/trach aspirate GS/Cx 3. F/U Stool C.Diff 4. Increase seroquel 100 mg BID; lower propofol and fentanyl--> off 40 min cc time ANAHY BOWIE MD Aug 27, 2018 12:12
--- NOTE | 2018-08-27 12:21 | PN ---
Date/Time of Note Date/Time of Note DATE: 08/27/18 TIME: 12:19 Assessment/Plan Lines/Catheters IV Catheter Type (from Nrsg): PICC Line Santiago in Place (from Nrsg): Yes Assessment/Plan Assessment/Plan Status post tracheostomy Tracheostomy site clean no signs of bleeding Continue vent support Tracheostomy care Pulmonary toilet Discussed with the mother Subjective 24 Hr Interval Summary Constitutional: improved Pain Control: mild Exam/Review of Systems Vital Signs Vitals Vital Signs Date Temp Pulse Resp B/P (MAP) Pulse Ox O2 O2 Flow FiO2 Time Delivery Rate 08/27/18 112 19 127/72 Mechanical 09:00 (90) Ventilator 08/27/18 97 08:00 08/27/18 40 08:00 08/27/18 98.6 05:23 Intake and Output 08/26/18 08/26/18 08/27/18 1515:00 23:00 07:00 IntakeIntake Total 526.64 ml 188.992 ml 170.995 ml OutputOutput Total 950 ml 850 ml 825 ml BalanceBalance -423.36 ml -661.008 ml -654.005 ml Exam ENMT: nl external ears & nose, nl lips & teeth, nl nasal mucosa & septum, mucosa pink and moist Neck: supple, non-tender Respiratory: clear to auscultation, normal air movement Cardiovascular: regular rate and rhythm, nl pulses Gastrointestinal: soft, nl liver, spleen, non-tender Musculoskeletal: nl extremities to inspection, nl gait and stance Results Result Diagram: 08/27/18 0436 08/27/18 043 TIMMY DALAL MD Aug 27, 2018 12:21
--- NOTE | 2018-08-27 13:29 | PN ---
Date/Time of Note Date/Time of Note DATE: 08/27/18 TIME: 13:24 Assessment/Plan VTE Prophylaxis Risk score (from Ns)>0 risk: 9 SCD applied (from Ns): No SCD contraindicated: other (no) Pharmacological prophylaxis: LMWH Lines/Catheters IV Catheter Type (from Nrs): PICC Line Central line still needed: Yes Urinary Cath still in place: Yes Reason Cath still needed: other (indicate) (morbidly obese) Assessment/Plan Assessment/Plan 32M morbidly obese presents with hypercapnic respiratory failure and pneumonia. #Hypoxic and hypercapnic respiratory failure - Likely from obesity (ANDREW), exacerbated by pneumonia - Intubated 08/09 - PEG placed 08/23 - Trach 08/24. - Since tracheostomy patient has had copious white secretions. Holding tube feeds. - As of 08/27 he's off vent, on trach collar, appears to be doing well. - Depending on his progress he may be a candidate for [place]. # Pneumonia- Bilateral patchy infiltrates on CXR,WBC 16 on admission - on broad-spectrum antibiotics for MDR actinobacter PNA - Monitor, continue current antibiotics, follow up pulmonary and follow-up ID recommendations. - Unfortunately patient exceeds the weight limit for CT scanner DVT: lovenox GI: Protonix IV Critical care time spent on patient care today equals 40 minutes. Result Diagram: 08/27/186 08/27/18435 Subjective 24 Hr Interval Summary Free Text/Dictation Overnight continues to have copious white secretions. Required frequent holding of tube feeds. Sedation held this morning without incident. This afternoon; patient taken off vent to trach collar. Currently appears to be tolerating it well. Mother updated on patient's status today. Exam/Review of Systems Exam Vitals Vital Signs Date Temp Pulse Resp B/P (MAP) Pulse Ox O2 O2 Flow FiO2 Time Delivery Rate 08/27/18 99.1 84 19 106/57 98 Mechanical 12:00 (73) Ventilator 08/27/18 40 08:00 Intake and Output 08/26/18 08/26/18 08/27/18 1515:00 23:00 07:00 IntakeIntake Total 526.64 ml 188.992 ml 170.995 ml OutputOutput Total 950 ml 850 ml 875 ml BalanceBalance -423.36 ml -661.008 ml -704.005 ml Exam Gen: Morbidly obese man lying in bed trached, awake and alert Neuro: Eyes open, tracking. Follows commands (thumbs up). Neck: Obese, no lymphadenopathy appreciated HEENT: Moist mucous membranes. Fresh trach in place. Copious thick white secretions from mouth. Card: Regular rate and rhythm, distant heart sounds Pulm: distant lung sounds. Abd: Morbidly obese, soft, nontender. PEG in place clean/dry/intact Ext: LE edema and redness have resolved. Medications Medication Current Medications IV Flush (NS 3 ml) 3 ml PER PROTOCOL IV ; Start 08/08/18 at 17:30 Ondansetron HCl (Zofran Inj) 4 mg Q6H PRN IV NAUSEA; Start 08/08/18 at 17:30 Haloperidol (Haldol) 5 mg PRN PRN IM AGGITATED Last administered on 08/16/18 08:32; Admin Dose 5 MG; Start 08/08/18 at 22:00 Propofol 100 ml @ 6.111 mls/ hr Q12H IV Last administered on 08/27/18 01:49; Admin Dose 18.333 MLS/HR; Start 08/09/18 at 05:30 Fentanyl 100 ml @ 2.5 mls/hr TITRATE IV Last administered on 08/27/18 03:22; Admin Dose 8 MLS/HR; Start 08/09/18 at 06:30 Enoxaparin Sodium (Lovenox) 40 mg Q12H SC Last administered on 08/27/18 10:38; Admin Dose 40 MG; Start 08/09/18 at 21:00 Famotidine (Pepcid) 20 mg BID GTB Last administered on 08/27/18 10:36; Admin Dose 20 MG; Start 08/12/18 at 09:00 Midazolam HCl 50 ml @ 1 mls/hr TITRATE IV Last administered on 08/25/18 11:49; Admin Dose 4 MLS/HR; Start 08/13/18 at 08:30 Docusate Sodium (Colace Liquid Cup) 200 mg BID NGT Last administered on 08/26/18 20:22; Admin Dose 200 MG; Start 08/14/18 at 21:00 Polyethylene Glycol (Miralax) 17 gm DAILY GTB Last administered on 08/23/18 08:51; Admin Dose 17 GM; Start 08/17/18 at 09:00 Naphazoline HCl (Clear Eyes / Naphcon) 2 drop QID BOTH EYES Last administered on 08/27/18 13:10; Admin Dose 2 DROP; Start 08/16/18 at 18:14 Acetaminophen (Tylenol Liquid) 650 mg Q6H PRN NGT MILD PAIN(1-3)OR ELEVATED TEMP Last administered on 08/27/18 04:18; Admin Dose 650 MG; Start 08/17/18 at 00:57 Fluconazole (Diflucan) 100 mg DAILY PO Last administered on 08/27/18 10:36; Ad min Dose 100 MG; Start 08/23/18 at 15:00 Methylprednisolone Sodium Succinate (Solu-Medrol) 40 mg Q12 IV Last administered on 08/27/18 10:35; Admin Dose 40 MG; Start 08/25/18 at 21:00 Metronidazole (Flagyl) 500 mg Q8 NGT Last administered on 08/27/18 05:20; Admin Dose 500 MG; Start 08/26/18 at 14:00 Colistimethate Sodium 200 mg/ Sodium Chloride 100 ml @ 200 mls/hr Q12 IVPB Last administered on 08/27/18 10:37; Admin Dose 200 MLS/HR; Start 08/26/18 at 21:00 Levalbuterol (Xopenex Hfa) 4 puff Q4H RESP THERAPY PRN INH SHORTNESS OF BREATH Last administered on 08/27/18 05:08; Admin Dose 4 PUFF; Start 08/26/18 at 20:00 Ipratropium [place] (Atrovent Hfa) 2 puff QID RESP THERAPY PRN INH SHORTNESS OF BREATH Last administered on 08/27/18 05:08; Admin Dose 2 PUFF; Start 08/26/18 at 20:00 Metoclopramide HCl (Reglan) 5 mg BID IV ; Start 08/27/18 at 21:00 Quetiapine Fumarate (Seroquel) 100 mg BID GTB ; Start 08/27/18 at 21:00 ELIANE PEARSON MD Aug 27, 2018 13:29
--- NOTE | 2018-08-27 19:10 | CONS ---
Assessment/Plan Assessment/Plan Hospital Course (Demo Recall) No acute events overnight patient has copious secretions spiking fevers with a T-max of 101.7, currently on T-piece, looks comfortable WBC 22.5 H&H 10.5 and 38.8 platelets 324 neutrophils 86.2 BUN 23 creatinine 0.53 Microbiology: Blood and urine cultures repeated to remain negative, sputum c ulture growing Acinetobacter Chest x-ray this morning revealed partial clearing right lung pneumonia Antimicrobials: Colistin, fluconazole, Flagyl Indwelling: Trach PEG Santiago catheter, PICC line Physical examination: This is a morbidly obese well-developed middle-aged man who is intubated sedated in no distress. Head atraumatic normocephalic, bucal mucosa dry, neck is obese. Chest rise symmetrical breath sounds diminished. Heart: S1-S2. Abdomen obese distended bowel sounds hypoactive. Extremities with edema Assessment: 1. Sepsis with ongoing fevers and worsening leukocytosis likely pulmonary source 2. Acute hypoxemic respiratory failure/ pneumonia 3. Morbid obesity 4. Sleep apnea with hypoventilation syndrome Plan: Clinically unchanged, stable, repeat cultures negative, stool for C. difficile pending, continue antibiotics, aggressive pulmonary toilet, pulmonary recommendations DW RN Consultation Date/Type/Reason Admit Date/Time Aug 08, 2018 at 17:18 Initial Consult Date 08/09/18 Type of Consult ID Date/Time of Note DATE: 08/27/18 TIME: 19:08 Exam/Review of Systems Exam Vitals Vital Signs Date Temp Pulse Resp B/P (MAP) Pulse Ox O2 O2 Flow FiO2 Time Delivery Rate 08/27/18 129 16 131/65 83 Mechanical 17:30 (87) Ventilator 08/27/18 8.0 17:24 08/27/18 99.2 16:00 08/27/18 40 11:20 Intake and Output 08/26/18 08/26/18 08/27/18 1515:00 23:00 07:00 IntakeIntake Total 526.64 ml 188.992 ml 170.995 ml OutputOutput Total 950 ml 850 ml 875 ml BalanceBalance -423.36 ml -661.008 ml -704.005 ml Results Result Diagram: 08/27/18 0436 08/27/18 0436 Results 24hrs Laboratory Tests Test 08/27/18 04:36 08/27/18 05:00 White Blood Count 22.5 H Red Blood Count 4.55 L Hemoglobin 10.5 L Hematocrit 38.8 L Mean Corpuscular Volume 85.3 Mean Corpuscular Hemoglobin 23.1 L Mean Corpuscular Hemoglobin Concent 27.1 L Red Cell Distribution Width 17.5 H Platelet Count 324 Mean Platelet Volume 9.1 Immature Granulocytes % 1.700 H Neutrophils % 86.2 H Lymphocytes % 4.1 L Monocytes % 7.8 Eosinophils % 0.0 Basophils % 0.2 Nucleated Red Blood Cells % 0.0 Immature Granulocytes # 0.380 H Neutrophils # 19.4 H Lymphocytes # 0.9 Monocytes # 1.8 H Eosinophils # 0.0 Basophils # 0.0 Nucleated Red Blood Cells # 0.0 Sodium Level 143 Potassium Level 3.6 Chloride Level 102 Carbon Dioxide Level Anion Gap 3 L Blood Urea Nitrogen 23 H Creatinine 0.53 L Est Glomerular Filtrat Rate mL/min > 60 Glucose Level 123 Lactic Acid Level 1.0 Calcium Level 9.2 Phosphorus Level 3.1 Magnesium Level 2.0 Blood Gas Specimen Source Blood arterial Arterial Blood Date Drawn 08/27/2018 4:45:21 AM Arterial Blood pH (Temp corrected) 7.440 Arterial Blood pCO2 (Temp correct) 55.8 H Arterial Blood pO2 (Temp corrected) 74.9 L Arterial Blood HCO3 37.0 H Arterial Blood Base Excess 11.0 H Arterial Blood Oxygen Saturation 95.3 James Test ACCEPTAB Arterial Blood Gas Puncture Site Right Radial Arterial Blood Carboxyhemoglobin 1.7 Arterial Blood Methemoglobin 0.2 Blood Gas A-a O2 Differential 146.1 H Oxyhemoglobin Percent 93.5 Blood Gas Temperature 37.0 Blood Gas Actual Respiration Rate 20 Blood Gas Modality VENT - CPAP FiO2 40.0 Blood Gas Low PEEP Setting 8.0 Blood Gas Pressure Support 10 Blood Gas Notified Whom MA Blood Gas Notified Time 08/27/2018 4:57:16 AM Medications Medication Current Medications IV Flush (NS 3 ml) 3 ml PER PROTOCOL IV ; Start 08/08/18 at 17:30 Ondansetron HCl (Zofran Inj) 4 mg Q6H PRN IV NAUSEA; Start 08/08/18 at 17:30 Haloperidol (Haldol) 5 mg PRN PRN IM AGGITATED Last administered on 08/16/18at 08:32; Admin Dose 5 MG; Start 08/08/18 at 22:00 Propofol 100 ml @ 6.111 mls/ hr Q12H IV Last administered on 08/27/18 08:00; Admin Dose 18.333 MLS/HR; Start 08/09/18 at 05:30 Fentanyl 100 ml @ 2.5 mls/hr TITRATE IV Last administered on 08/27/18 15:24; Admin Dose 2.5 MLS/HR; Start 08/09/18 at 06:30 Enoxaparin Sodium (Lovenox) 40 mg Q12H SC Last administered on 08/27/18 10:38; Admin Dose 40 MG; Start 08/09/18 at 21:00 Famotidine (Pepcid) 20 mg BID GTB Last administered on 08/27/18 10:36; Admin Dose 20 MG; Start 08/12/18 at 09:00 Midazolam HCl 50 ml @ 1 mls/hr TITRATE IV Last administered on 08/25/18 11:49; Admin Dose 4 MLS/HR; Start 08/13/18 at 08:30 Docusate Sodium (Colace Liquid Cup) 200 mg BID NGT Last administered on 08/26/18 20:22; Admin Dose 200 MG; Start 08/14/18 at 21:00 Polyethylene Glycol (Miralax) 17 gm DAILY GTB Last administered on 08/23/18 08:51; Admin Dose 17 GM; Start 08/17/18 at 09:00 Naphazoline HCl (Clear Eyes / Naphcon) 2 drop QID BOTH EYES Last administered on 08/27/18 17:36; Admin Dose 2 DROP; Start 08/16/18 at 18:14 Acetaminophen (Tylenol Liquid) 650 mg Q6H PRN NGT MILD PAIN(1-3)OR ELEVATED TEMP Last administered on 08/27/18 14:11; Admin Dose 650 MG; Start 08/17/18 at 00:57 Fluconazole (Diflucan) 100 mg DAILY PO Last administered on 08/27/18 10:36; Admin Dose 100 MG; Start 08/23/18 at 15:00 Methylprednisolone Sodium Succinate (Solu-Medrol) 40 mg Q12 IV Last administered on 08/27/18 10:35; Admin Dose 40 MG; Start 08/25/18 at 21:00 Metronidazole (Flagyl) 500 mg Q8 NGT Last administered on 08/27/18at 14:04; Admin Dose 500 MG; Start 08/26/18 at 14:00 Colistimethate Sodium 200 mg/ Sodium Chloride 100 ml @ 200 mls/hr Q12 IVPB Last administered on 08/27/18at 10:37; Admin Dose 200 MLS/HR; Start 08/26/18 at 21:00 Levalbuterol (Xopenex Hfa) 4 puff Q4H RESP THERAPY PRN INH SHORTNESS OF BREATH Last administered on 08/27/18at 05:08; Admin Dose 4 PUFF; Start 08/26/18 at 20:00 Ipratropium [place] (Atrovent Hfa) 2 puff QID RESP THERAPY PRN INH SHORTNESS OF BREATH Last administered on 08/27/18at 05:08; Admin Dose 2 PUFF; Start 08/26/18 at 20:00 Metoclopramide HCl (Reglan) 5 mg BID IV ; Start 08/27/18 at 21:00 Quetiapine Fumarate (Seroquel) 100 mg BID GTB ; Start 08/27/18 at 21:00 JOCELYN VILLALTA NP Aug 27, 2018 19:10
[2018-08-27] MEDS: METOCLOPRAMIDE 10 MG INJ IV SCH (20:14)
[2018-08-27] MEDS: QUETIAPINE 100 MG TAB GTB SCH (20:15)
[2018-08-28] VITALS (22 sets, daily range): BP systolic 102–147; BP diastolic 30–102; PULSE 101–128; RESP 20–35
[2018-08-28] MEDS: FENTAnyl (DRIP) 1000 mcg/100mL 100 ML IV SCH (00:37)
[2018-08-28] MEDS: LORAZEPAM 2 MG INJ IV PRN ×4 (02:22→22:52)
[2018-08-28] MEDS: metroNIDAZOLE 500 MG TAB NGT SCH (05:44)
[2018-08-28] MEDS: DOCUSATE SODIUM 10 MG/ML (10ML CUP) NGT SCH ×2 (09:00→20:18)
[2018-08-28] MEDS: POLYETHYLENE GLYCOL 17 GM PACKET GTB SCH (09:00)
[2018-08-28] MEDS: QUETIAPINE 100 MG TAB GTB SCH ×2 (09:23→20:18)
[2018-08-28] MEDS: ACETAMINOPHEN 650MG/20.3ML CUP NGT PRN (09:23)
[2018-08-28] MEDS: METOCLOPRAMIDE 10 MG INJ IV SCH ×2 (09:23→20:18)
[2018-08-28] MEDS: FLUCONAZOLE 100 MG TAB PO SCH (09:24)
[2018-08-28] MEDS: FAMOTIDINE 20 MG TAB GTB SCH ×2 (09:24→20:18)
[2018-08-28] MEDS: NAPHAZOLINE 0.012% 15 ML OPH BOTH EYES SCH ×4 (09:25→20:18)
[2018-08-28] MEDS: METHYLPREDNISOLONE 40 MG INJ IV SCH ×2 (09:25→20:17)
--- NOTE | 2018-08-28 09:25 | PN ---
Date/Time of Note Date/Time of Note DATE: 08/28/18 TIME: 09: Assessment/Plan VTE Prophylaxis Risk score (from Ns)>0 risk: 11 SCD applied (from [facility] [place]): No SCD contraindicated: other Pharmacological prophylaxis: LMWH Lines/Catheters IV Catheter Type (from [facility]): PICC Line Central line still needed: Yes Urinary Cath still in place: Yes Reason Cath still needed: urinary retention Assessment/Plan Hospital Course S: Pt taken off mechanical ventilation last night. Tube feeds on hold secondary to diarrhea. Off of fentanyl as well. O: VS - see below PE: Gen: Morbidly obese man lying in bed, opens eyes Neck: Obese, trach, no lymphadenopathy appreciated HEENT: Clear oropharynx, moist mucous membranes Card: Regular rate and rhythm, distant heart sounds Pulm: distant lung sounds. Abd: Morbidly obese, soft, nontender. Ext: Bilateral LE chronic venous stasis changes. Neuro: No focal deficits Assessment/Plan: 32M morbidly obese presents with hypercapnic respiratory failure and pneumonia. #Hypoxic and hypercapnic respiratory failure - Likely from obesity (ANDREW), exacerbated by pneumonia - Intubated 08/09, then Trach 08/24- PEG placed 08/23- Since tracheostomy patient has had copious white secretions, As of 08/27 he's off vent, on trach collar, appears to be doing well. - Given diarrhea, continue to hold tube feeds for now, follow-up C. difficile results. - Breathing treatments as needed, follow pulmonary recommendations, continue steroids - depending on his progress he may be a candidate for [place]. # Pneumonia- Bilateral patchy infiltrates on CXR,WBC 16 on admission- on broad-spectrum antibiotics for MDR actinobacter PNA - Monitor, continue current antibiotics, follow up pulmonary and follow-up ID recommendations. - Unfortunately patient exceeds the weight limit for CT scanner DVT: lovenox GI: Protonix IV Critical care time spent in patient care today equals 45 minutes. Result Diagram: 08/28/1842808/28/18428 Results 24hrs Laboratory Tests Test 08/28/18 04:29 08/28/18 05:00 White Blood Count 17.6 #H Red Blood Count 4.66 L Hemoglobin 10.7 L Hematocrit 40.2 L Mean Corpuscular Volume 86.3 Mean Corpuscular Hemoglobin 23.0 L Mean Corpuscular Hemoglobin Concent 26.6 L Red Cell Distribution Width 18.1 H Platelet Count 345 Mean Platelet Volume 9.3 Immature Granulocytes % 1.400 H Neutrophils % 87.4 H Lymphocytes % 4.4 L Monocytes % 6.6 Eosinophils % 0.0 Basophils % 0.2 Nucleated Red Blood Cells % 0.0 Immature Granulocytes # 0.250 H Neutrophils # 15.4 H Lymphocytes # 0.8 Monocytes # 1.2 H Eosinophils # 0.0 Basophils # 0.0 Nucleated Red Blood Cells # 0.0 Sodium Level 144 Potassium Level 3.7 Chloride Level 101 Carbon Dioxide Level 39 H Anion Gap 4 L Blood Urea Nitrogen 24 H Creatinine 0.63 Est Glomerular Filtrat Rate mL/min > 60 Glucose Level 120 Calcium Level 9.3 Blood Gas Specimen Source Blood arterial Arterial Blood Date Drawn 08/28/2018 5:05:47 AM Arterial Blood pH (Temp corrected) 7.409 Arterial Blood pCO2 (Temp correct) 57.5 H Arterial Blood pO2 (Temp corrected) 72.6 L Arterial Blood HCO3 35.5 H Arterial Blood Base Excess 8.9 H Arterial Blood Oxygen Saturation 94.7 L James Test ACCEPTAB Arterial Blood Gas Puncture Site Right Radial Arterial Blood Carboxyhemoglobin 2.0 Arterial Blood Methemoglobin 0.4 Blood Gas A-a O2 Differential 146.5 H Oxyhemoglobin Percent 92.4 L Blood Gas Temperature 37.0 Blood Gas Actual Respiration Rate 22 Blood Gas Modality TRACH COLLAR FiO2 40.0 Blood Gas Notified Whom MA Blood Gas Notified Time 08/28/2018 5:12:43 AM Exam/Review of Systems Exam Vitals Vital Signs Date Temp Pulse Resp B/P (MAP) Pulse Ox O2 O2 Flow FiO2 Time Delivery Rate 08/28/18 98 5.0 28 08:23 08/28/18 116 08:00 08/28/18 102.0 22 116/67 Trach 08:00 (83) Collar Intake and Output 08/27/18 08/27/18 08/28/18 1515:00 23:00 07:00 IntakeIntake Total 434.6 ml 328.10 ml 116.56 ml OutputOutput Total 580 ml 785 ml 775 ml BalanceBalance -145.4 ml -456.90 ml -658.44 ml Results Results 24hrs Laboratory Tests Test 08/28/18 04:29 08/28/18 05:00 White Blood Count 17.6 #H Red Blood Count 4.66 L Hemoglobin 10.7 L Hematocrit 40.2 L Mean Corpuscular Volume 86.3 Mean Corpuscular Hemoglobin 23.0 L Mean Corpuscular Hemoglobin Concent 26.6 L Red Cell Distribution Width 18.1 H Platelet Count 345 Mean Platelet Volume 9.3 Immature Granulocytes % 1.400 H Neutrophils % 87.4 H Lymphocytes % 4.4 L Monocytes % 6.6 Eosinophils % 0.0 Basophils % 0.2 Nucleated Red Blood Cells % 0.0 Immature Granulocytes # 0.250 H Neutrophils # 15.4 H Lymphocytes # 0.8 Monocytes # 1.2 H Eosinophils # 0.0 Basophils # 0.0 Nucleated Red Blood Cells # 0.0 Sodium Level 144 Potassium Level 3.7 Chloride Level 101 Carbon Dioxide Level 39 H Anion Gap 4 L Blood Urea Nitrogen 24 H Creatinine 0.63 Est Glomerular Filtrat Rate mL/min > 60 Glucose Level 120 Calcium Level 9.3 Blood Gas Specimen Source Blood arterial Arterial Blood Date Drawn 08/28/2018 5:05:47 AM Arterial Blood pH (Temp corrected) 7.409 Arterial Blood pCO2 (Temp correct) 57.5 H Arterial Blood pO2 (Temp corrected) 72.6 L Arterial Blood HCO3 35.5 H Arterial Blood Base Excess 8.9 H Arterial Blood Oxygen Saturation 94.7 L James Test ACCEPTAB Arterial Blood Gas Puncture Site Right Radial Arterial Blood Carboxyhemoglobin 2.0 Arterial Blood Methemoglobin 0.4 Blood Gas A-a O2 Differential 146.5 H Oxyhemoglobin Percent 92.4 L Blood Gas Temperature 37.0 Blood Gas Actual Respiration Rate 22 Blood Gas Modality TRACH COLLAR FiO2 40.0 Blood Gas Notified Whom MA Blood Gas Notified Time 08/28/2018 5:12:43 AM Medications Medication Current Medications IV Flush (NS 3 ml) 3 ml PER PROTOCOL IV ; Start 08/08/18 at 17:30 Ondansetron HCl (Zofran Inj) 4 mg Q6H PRN IV NAUSEA; Start 08/08/18 at 17:30 Haloperidol (Haldol) 5 mg PRN PRN IM AGGITATED Last administered on 08/16/18at 08:32; Admin Dose 5 MG; Start 08/08/18 at 22:00 Propofol 100 ml @ 6.111 mls/ hr Q12H IV Last administered on 08/27/18at 21:38; Admin Dose 24.444 MLS/HR; Start 08/09/18 at 05:30 Fentanyl 100 ml @ 2.5 mls/hr TITRATE IV Last administered on 08/28/18 00:37; Admin Dose 8 MLS/HR; Start 08/09/18 at 06:30 Enoxaparin Sodium (Lovenox) 40 mg Q12H SC Last administered on 08/27/18 20:25; Admin Dose 40 MG; Start 08/09/18 at 21:00 Famotidine (Pepcid) 20 mg BID GTB Last administered on 08/27/18 20:15; Admin Dose 20 MG; Start 08/12/18 at 09:00 Midazolam HCl 50 ml @ 1 mls/hr TITRATE IV Last administered on 08/25/18 11:49; Admin Dose 4 MLS/HR; Start 08/13/18 at 08:30 Docusate Sodium (Colace Liquid Cup) 200 mg BID NGT Last administered on 08/26/18 at 20:22; Admin Dose 200 MG; Start 08/14/18 at 21:00 Polyethylene Glycol (Miralax) 17 gm DAILY GTB Last administered on 08/23/18 08:51; Admin Dose 17 GM; Start 08/17/18 at 09:00 Naphazoline HCl (Clear Eyes / Naphcon) 2 drop QID BOTH EYES Last administered on 08/27/18 20:15; Admin Dose 2 DROP; Start 08/16/18 at 18:14 Acetaminophen (Tylenol Liquid) 650 mg Q6H PRN NGT MILD PAIN(1-3)OR ELEVATED TE MP Last administered on 08/27/18 20:16; Admin Dose 650 MG; Start 08/17/18 at 00:57 Fluconazole (Diflucan) 100 mg DAILY PO Last administered on 08/27/18 10:36; Admin Dose 100 MG; Start 08/23/18 at 15:00 Methylprednisolone Sodium Succinate (Solu-Medrol) 40 mg Q12 IV Last administered on 08/27/18 20:14; Admin Dose 40 MG; Start 08/25/18 at 21:00 Metronidazole (Flagyl) 500 mg Q8 NGT Last administered on 08/28/18 05:44; Admin Dose 500 MG; Start 08/26/18 at 14:00 Colistimethate Sodium 200 mg/ Sodium Chloride 100 ml @ 200 mls/hr Q12 IVPB Last administered on 08/27/18 20:16; Admin Dose 200 MLS/HR; Start 08/26/18 at 21:00 Levalbuterol (Xopenex Hfa) 4 puff Q4H RESP THERAPY PRN INH SHORTNESS OF BREATH Last administered on 08/27/18 05:08; Admin Dose 4 PUFF; Start 08/26/18 at 20:00 Ipratropium [place] (Atrovent Hfa) 2 puff QID RESP THERAPY PRN INH SHORTNESS OF BREATH Last administered on 08/27/18 05:08; Admin Dose 2 PUFF; Start 08/26/18 at 20:00 Metoclopramide HCl (Reglan) 5 mg BID IV Last administered on 08/27/18 20:14; Admin Dose 5 MG; Start 08/27/18 at 21:00 Quetiapine Fumarate (Seroquel) 100 mg BID GTB Last administered on 08/27/18 20:15; Admin Dose 100 MG; Start 08/27/18 at 21:00 Lorazepam (Ativan) 1 mg Q6H PRN IV AGITATION Last administered on 08/28/18 02:22; Admin Dose 1 MG; Start 08/28/18 at 02:30 Morphine Sulfate (morphine) 2 mg Q2H PRN IV SEVERE PAIN LEVEL 7-10; Start 08/28/18 at 09:00 RC GO Aug 28, 2018 09:25
[2018-08-28] MEDS: morphine 2 MG INJ IV PRN ×2 (09:27→14:24)
[2018-08-28] MEDS: ENOXAPARIN 40 MG/0.4 ML SYG SC SCH ×2 (09:28→20:27)
[2018-08-28] MEDS: COLISTIMETHATE 200 MG in SOD CHLORIDE 0.9% 100 ML IVPB SCH ×2 (09:29→20:18)
--- NOTE | 2018-08-28 09:50 | CONS ---
Consult Date/Type/Reason Admit Date/Time Aug 08, 2018 at 17:18 Initial Consult Date 08/09/18 Type of Consult Pulmonary Date/Time of Note DATE: 08/28/18 TIME: 09:49 Subjective Continues cool aerosol moderate secretions requiring frequent suctioning. Tube feeding tolerated. Currently hemodynamically stable. Currently on fentanyl drip. Objective Vital Signs Date Temp Pulse Resp B/P (MAP) Pulse Ox O2 O2 Flow FiO2 Time Delivery Rate 08/28/18 102.0 09:23 08/28/18 98 5.0 28 08:23 08/28/18 116 08:00 08/28/18 22 116/67 Trach 08:00 (83) Collar Intake and Output 08/27/18 08/27/18 08/28/18 1414:59 22:59 06:59 IntakeIntake Total 401 ml 329.26 ml 149.00 ml OutputOutput Total 580 ml 735 ml 875 ml BalanceBalance -179 ml -405.74 ml -726.00 ml Exam GENERAL: Obese young gentleman tracheostomy on mechanical ventilation VITAL SIGNS: per chart NECK: Supple. No JVD or lymphadenopathy. CARDIAC EXAM: S1, S2. No added sounds or murmurs. CHEST: clear bilaterally, No added sounds, rales or wheezes ABDOMEN: Soft, nontender. No guarding or rebound. EXTREMITIES: No cyanosis, clubbing or edema. NEUROLOGIC: Generalized weakness. No focal deficits. Vent Setting Ventilator Support Mode: CPAP, PS Fraction of Inspired Oxygen pe: 28 Positive End Expiratory Pressu: 8.0 Results/Medications Result Diagram: 08/28/18 0429 08/28/18 0429 Results 24 hrs Laboratory Tests Test 08/28/18 04:29 08/28/18 05:00 White Blood Count 17.6 #H Red Blood Count 4.66 L Hemoglobin 10.7 L Hematocrit 40.2 L Mean Corpuscular Volume 86.3 Mean Corpuscular Hemoglobin 23.0 L Mean Corpuscular Hemoglobin Concent 26.6 L Red Cell Distribution Width 18.1 H Platelet Count 345 Mean Platelet Volume 9.3 Immature Granulocytes % 1.400 H Neutrophils % 87.4 H Lymphocytes % 4.4 L Monocytes % 6.6 Eosinophils % 0.0 Basophils % 0.2 Nucleated Red Blood Cells % 0.0 Immature Granulocytes # 0.250 H Neutrophils # 15.4 H Lymphocytes # 0.8 Monocytes # 1.2 H Eosinophils # 0.0 Basophils # 0.0 Nucleated Red Blood Cells # 0.0 Sodium Level 144 Potassium Level 3.7 Chloride Level 101 Carbon Dioxide Level 39 H Anion Gap 4 L Blood Urea Nitrogen 24 H Creatinine 0.63 Est Glomerular Filtrat Rate mL/min > 60 Glucose Level 120 Calcium Level 9.3 Blood Gas Specimen Source Blood arterial Arterial Blood Date Drawn 08/28/2018 5:05:47 AM Arterial Blood pH (Temp corrected) 7.409 Arterial Blood pCO2 (Temp correct) 57.5 H Arterial Blood pO2 (Temp corrected) 72.6 L Arterial Blood HCO3 35.5 H Arterial Blood Base Excess 8.9 H Arterial Blood Oxygen Saturation 94.7 L James Test ACCEPTAB Arterial Blood Gas Puncture Site Right Radial Arterial Blood Carboxyhemoglobin 2.0 Arterial Blood Methemoglobin 0.4 Blood Gas A-a O2 Differential 146.5 H Oxyhemoglobin Percent 92.4 L Blood Gas Temperature 37.0 Blood Gas Actual Respiration Rate 22 Blood Gas Modality TRACH COLLAR FiO2 40.0 Blood Gas Notified Whom MA Blood Gas Notified Time 08/28/2018 5:12:43 AM Medications Current Medications IV Flush (NS 3 ml) 3 ml PER PROTOCOL IV ; Start 08/08/18 at 17:30 Ondansetron HCl (Zofran Inj) 4 mg Q6H PRN IV NAUSEA; Start 08/08/18 at 17:30 Haloperidol (Haldol) 5 mg PRN PRN IM AGGITATED Last administered on 08/16/18at 08:32; Admin Dose 5 MG; Start 08/08/18 at 22:00 Propofol 100 ml @ 6.111 mls/ hr Q12H IV Last administered on 08/27/18at 21:38; Admin Dose 24.444 MLS/HR; Start 08/09/18 at 05:30 Fentanyl 100 ml @ 2.5 mls/hr TITRATE IV Last administered on 08/28/18at 00:37; Admin Dose 8 MLS/HR; Start 08/09/18 at 06:30 Enoxaparin Sodium (Lovenox) 40 mg Q12H SC Last administered on 08/28/18at 09:28; Admin Dose 40 MG; Start 08/09/18 at 21:00 Famotidine (Pepcid) 20 mg BID GTB Last administered on 08/28/18 09:24; Admin Dose 20 MG; Start 08/12/18 at 09:00 Midazolam HCl 50 ml @ 1 mls/hr TITRATE IV Last administered on 08/25/18 11:49; Admin Dose 4 MLS/HR; Start 08/13/18 at 08:30 Docusate Sodium (Colace Liquid Cup) 200 mg BID NGT Last administered on 08/26/18 20:22; Admin Dose 200 MG; Start 08/14/18 at 21:00 Polyethylene Glycol (Miralax) 17 gm DAILY GTB Last administered on 08/23/18 08:51; Admin Dose 17 GM; Start 08/17/18 at 09:00 Naphazoline HCl (Clear Eyes / Naphcon) 2 drop QID BOTH EYES Last administered on 08/28/18 09:25; Admin Dose 2 DROP; Start 08/16/18 at 18:14 Acetaminophen (Tylenol Liquid) 650 mg Q6H PRN NGT MILD PAIN(1-3)OR ELEVATED TEMP Last administered on 08/28/18 09:23; Admin Dose 650 MG; Start 08/17/18 at 00:57 Fluconazole (Diflucan) 100 mg DAILY PO Last administered on 08/28/18 09:24; Admin Dose 100 MG; Start 08/23/18 at 15:00 Methylprednisolone Sodium Succinate (Solu-Medrol) 40 mg Q12 IV Last administered on 08/28/18 09:25; Admin Dose 40 MG; Start 08/25/18 at 21:00 Metronidazole (Flagyl) 500 mg Q8 NGT Last administered on 08/28/18 05:44; Admin Dose 500 MG; Start 08/26/18 at 14:00 Colistimethate Sodium 200 mg/ Sodium Chloride 100 ml @ 200 mls/hr Q12 IVPB Last administered on 08/28/18 09:29; Admin Dose 200 MLS/HR; Start 08/26/18 at 21:00 Levalbuterol (Xopenex Hfa) 4 puff Q4H RESP THERAPY PRN INH SHORTNESS OF BREATH Last administered on 08/27/18 05:08; Admin Dose 4 PUFF; Start 08/26/18 at 20:00 Ipratropium [place] (Atrovent Hfa) 2 puff QID RESP THERAPY PRN INH SHORTNESS OF BREATH Last administered on 08/27/18 05:08; Admin Dose 2 PUFF; Start 08/26/18 at 20:00 Metoclopramide HCl (Reglan) 5 mg BID IV Last administered on 08/28/18 09:23; Admin Dose 5 MG; Start 08/27/18 at 21:00 Quetiapine Fumarate (Seroquel) 100 mg BID GTB Last administered on 08/28/18 09:23; Admin Dose 100 MG; Start 08/27/18 at 21:00 Lorazepam (Ativan) 1 mg Q6H PRN IV AGITATION Last administered on 08/28/18 09:34; Admin Dose 1 MG; Start 08/28/18 at 02:30 Morphine Sulfate (morphine) 2 mg Q2H PRN IV SEVERE PAIN LEVEL 7-10 Last administered on 08/28/18 09:27; Admin Dose 2 MG; Start 08/28/18 at 09:00 Assessment/Plan Hospital Course (Demo Recall) IMP: 1. Acute on chronic hypoxemic and hypercapnic respiratory failure, failed multiple weaning trials status post tracheostomy 2. Component of diastolic dysfunction 3. History of obesity hypoventilation syndrome and probable obstructive sleep apnea 4. Leukocytosis 5. Anemia RECS: 1. Continue trach collar as tolerated 2. Follow-up sputum/trach aspirate GS/Cx 3. F/U Stool C.Diff 4. Increase seroquel 100 mg BID; lower propofol and fentanyl--> off 40 min cc time DC fentanyl. JULIETH PUENTE MD, [facility] Aug 28, 2018 09:50
--- NOTE | 2018-08-28 11:17 | CONS ---
Assessment/Plan Assessment/Plan Hospital Course (Demo Recall) Patient continues to spike fever highest was 102 this morning his blood cultures remain negative urine culture 2 days ago negative stool for C. difficile came back negative as well Microbiology: Blood and urine cultures repeated to remain negative, sputum culture growing Acinetobacter Antimicrobials: Colistin, fluconazole, Flagyl Indwelling: Trach PEG Santiago catheter, PICC line Physical examination: This is a morbidly obese well-developed middle-aged man who is intubated sedated in no distress. Head atraumatic normocephalic, bucal mucosa dry, neck is obese. Chest rise symmetrical breath sounds diminished. Heart: S1-S2. Abdomen obese distended bowel sounds hypoactive. Extremities with edema Assessment: 1. Sepsis with ongoing fevers 2. Acute hypoxemic respiratory failure/ pneumonia 3. Morbid obesity 4. Sleep apnea with hypoventilation syndrome Plan: Clinically stable, repeat cultures negative, stool for C. difficile neg, continue antibiotics, aggressive pulmonary toilet, consider dc PICC and send tip for cx DW RN Consultation Date/Type/Reason Admit Date/Time Aug 08, 2018 at 17:18 Initial Consult Date 08/09/18 Type of Consult ID Date/Time of Note DATE: 08/28/18 TIME: 11:15 Exam/Review of Systems Exam Vitals Vital Signs Date Temp Pulse Resp B/P (MAP) Pulse Ox O2 O2 Flow FiO2 Time Delivery Rate 08/28/18 114 20 108/62 96 Trach 10:00 (77) Collar 08/28/18 102.0 09:23 08/28/18 5.0 28 08:23 Intake and Output 08/27/18 08/27/18 08/28/18 1515:00 23:00 07:00 IntakeIntake Total 434.6 ml 328.10 ml 116.56 ml OutputOutput Total 580 ml 785 ml 775 ml BalanceBalance -145.4 ml -456.90 ml -658.44 ml Results Result Diagram: 08/28/18 0429 08/28/18 0429 Results 24hrs Laboratory Tests Test 08/28/18 04:29 08/28/18 05:00 White Blood Count 17.6 #H Red Blood Count 4.66 L Hemoglobin 10.7 L Hematocrit 40.2 L Mean Corpuscular Volume 86.3 Mean Corpuscular Hemoglobin 23.0 L Mean Corpuscular Hemoglobin Concent 26.6 L Red Cell Distribution Width 18.1 H Platelet Count 345 Mean Platelet Volume 9.3 Immature Granulocytes % 1.400 H Neutrophils % 87.4 H Lymphocytes % 4.4 L Monocytes % 6.6 Eosinophils % 0.0 Basophils % 0.2 Nucleated Red Blood Cells % 0.0 Immature Granulocytes # 0.250 H Neutrophils # 15.4 H Lymphocytes # 0.8 Monocytes # 1.2 H Eosinophils # 0.0 Basophils # 0.0 Nucleated Red Blood Cells # 0.0 Sodium Level 144 Potassium Level 3.7 Chloride Level 101 Carbon Dioxide Level 39 H Anion Gap 4 L Blood Urea Nitrogen 24 H Creatinine 0.63 Est Glomerular Filtrat Rate mL/min > 60 Glucose Level 120 Calcium Level 9.3 Blood Gas Specimen Source Blood arterial Arterial Blood Date Drawn 08/28/2018 5:05:47 AM Arterial Blood pH (Temp corrected) 7.409 Arterial Blood pCO2 (Temp correct) 57.5 H Arterial Blood pO2 (Temp corrected) 72.6 L Arterial Blood HCO3 35.5 H Arterial Blood Base Excess 8.9 H Arterial Blood Oxygen Saturation 94.7 L James Test ACCEPTAB Arterial Blood Gas Puncture Site Right Radial Arterial Blood Carboxyhemoglobin 2.0 Arterial Blood Methemoglobin 0.4 Blood Gas A-a O2 Differential 146.5 H Oxyhemoglobin Percent 92.4 L Blood Gas Temperature 37.0 Blood Gas Actual Respiration Rate 22 Blood Gas Modality TRACH COLLAR FiO2 40.0 Blood Gas Notified Whom MA Blood Gas Notified Time 08/28/2018 5:12:43 AM Medications Medication Current Medications IV Flush (NS 3 ml) 3 ml PER PROTOCOL IV ; Start 08/08/18 at 17:30 Ondansetron HCl (Zofran Inj) 4 mg Q6H PRN IV NAUSEA; Start 08/08/18 at 17:30 Haloperidol (Haldol) 5 mg PRN PRN IM AGGITATED Last administered on 08/16/18at 08:32; Admin Dose 5 MG; Start 08/08/18 at 22:00 Propofol 100 ml @ 6.111 mls/ hr Q12H IV Last administered on 08/27/18at 21:38; Admin Dose 24.444 MLS/HR; Start 08/09/18 at 05:30 Fentanyl 100 ml @ 2.5 mls/hr TITRATE IV Last administered on 08/28/18at 00:37; Admin Dose 8 MLS/HR; Start 08/09/18 at 06:30 Enoxaparin Sodium (Lovenox) 40 mg Q12H SC Last administered on 08/28/18 09:28; Admin Dose 40 MG; Start 08/09/18 at 21:00 Famotidine (Pepcid) 20 mg BID GTB Last administered on 08/28/18 09:24; Admin D ose 20 MG; Start 08/12/18 at 09:00 Midazolam HCl 50 ml @ 1 mls/hr TITRATE IV Last administered on 08/25/18 11:49; Admin Dose 4 MLS/HR; Start 08/13/18 at 08:30 Docusate Sodium (Colace Liquid Cup) 200 mg BID NGT Last administered on 08/26/18 20:22; Admin Dose 200 MG; Start 08/14/18 at 21:00 Polyethylene Glycol (Miralax) 17 gm DAILY GTB Last administered on 08/23/18 08:51; Admin Dose 17 GM; Start 08/17/18 at 09:00 Naphazoline HCl (Clear Eyes / Naphcon) 2 drop QID BOTH EYES Last administered on 08/28/18 09:25; Admin Dose 2 DROP; Start 08/16/18 at 18:14 Acetaminophen (Tylenol Liquid) 650 mg Q6H PRN NGT MILD PAIN(1-3)OR ELEVATED TEMP Last administered on 08/28/18 09:23; Admin Dose 650 MG; Start 08/17/18 at 00:57 Fluconazole (Diflucan) 100 mg DAILY PO Last administered on 08/28/18 09:24; Admin Dose 100 MG; Start 08/23/18 at 15:00 Methylprednisolone Sodium Succinate (Solu-Medrol) 40 mg Q12 IV Last administered on 08/28/18 09:25; Admin Dose 40 MG; Start 08/25/18 at 21:00 Metronidazole (Flagyl) 500 mg Q8 NGT Last administered on 08/28/18 05:44; Admin Dose 500 MG; Start 08/26/18 at 14:00 Colistimethate Sodium 200 mg/ Sodium Chloride 100 ml @ 200 mls/hr Q12 IVPB Last administered on 08/28/18 09:29; Admin Dose 200 MLS/HR; Start 08/26/18 at 21:00 Levalbuterol (Xopenex Hfa) 4 puff Q4H RESP THERAPY PRN INH SHORTNESS OF BREATH Last administered on 08/27/18 05:08; Admin Dose 4 PUFF; Start 08/26/18 at 20:00 Ipratropium [place] (Atrovent Hfa) 2 puff QID RESP THERAPY PRN INH SHORTNESS OF BREATH Last administered on 08/27/18 05:08; Admin Dose 2 PUFF; Start 08/26/18 at 20:00 Metoclopramide HCl (Reglan) 5 mg BID IV Last administered on 08/28/18 09:23; Admin Dose 5 MG; Start 08/27/18 at 21:00 Quetiapine Fumarate (Seroquel) 100 mg BID GTB Last administered on 08/28/18 09:23; Admin Dose 100 MG; Start 08/27/18 at 21:00 Lorazepam (Ativan) 1 mg Q6H PRN IV AGITATION Last administered on 08/28/18 09:34; Admin Dose 1 MG; Start 08/28/18 at 02:30 Morphine Sulfate (morphine) 2 mg Q2H PRN IV SEVERE PAIN LEVEL 7-10 Last administered on 08/28/18 09:27; Admin Dose 2 MG; Start 08/28/18 at 09:00 JOCELYN VILLALTA NP Aug 28, 2018 11:17
[2018-08-28] MEDS ORDERED: FUROSEMIDE 20 MG INJ IV ONE (12:00)
--- NOTE | 2018-08-28 21:07 | PN ---
Date/Time of Note Date/Time of Note DATE: 08/28/18 TIME: 21:06 Assessment/Plan Lines/Catheters IV Catheter Type (from Nrsg): PICC Line Santiago in Place (from Nrsg): Yes Assessment/Plan Assessment/Plan Status post tracheostomy Tracheostomy site clean no signs of bleeding Continue vent support Tracheostomy care Pulmonary toilet Discussed with the mother Subjective 24 Hr Interval Summary Constitutional: improved Pain Control: mild Exam/Review of Systems Vital Signs Vitals Vital Signs Date Temp Pulse Resp B/P (MAP) Pulse Ox O2 O2 Flow FiO2 Time Delivery Rate 08/28/18 126 20:00 08/28/18 23 121/65 97 Trach 20:00 (83) Collar 08/28/18 10.0 20:00 08/28/18 40 19:56 08/28/18 99.9 19:00 Intake and Output 08/27/18 08/27/18 08/28/18 1515:00 23:00 07:00 IntakeIntake Total 434.6 ml 328.10 ml 174.56 ml OutputOutput Total 580 ml 785 ml 875 ml BalanceBalance -145.4 ml -456.90 ml -700.44 ml Exam Eyes: nl conjunctiva, EOMI, nl lids, nl sclera ENMT: nl external ears & nose, nl lips & teeth, nl nasal mucosa & septum, mucosa pink and moist Neck: supple, non-tender Respiratory: clear to auscultation, normal air movement Cardiovascular: regular rate and rhythm, nl pulses Gastrointestinal: soft, nl liver, spleen, non-tender Musculoskeletal: nl extremities to inspection, nl gait and stance Results Result Diagram: 08/28/189 08/28/18428 TIMMY DALAL MD Aug 28, 2018 21:06
[2018-08-29] VITALS (24 sets, daily range): BP systolic 116–145; BP diastolic 65–89; PULSE 110–138; RESP 19–48
[2018-08-29] MEDS: PROPOFOL 100 ML IV SCH ×2 (05:12→17:20)
[2018-08-29] MEDS: ACETAMINOPHEN 650MG/20.3ML CUP NGT PRN ×3 (05:13→21:28)
[2018-08-29] MEDS: morphine 2 MG INJ IV PRN (07:39)
[2018-08-29] MEDS: POLYETHYLENE GLYCOL 17 GM PACKET GTB SCH (08:24)
[2018-08-29] MEDS: DOCUSATE SODIUM 10 MG/ML (10ML CUP) NGT SCH (08:24)
[2018-08-29] MEDS: COLISTIMETHATE 200 MG in SOD CHLORIDE 0.9% 100 ML IVPB SCH ×2 (08:49→21:47)
[2018-08-29] MEDS: METHYLPREDNISOLONE 40 MG INJ IV SCH ×2 (08:49→21:28)
[2018-08-29] MEDS: FLUCONAZOLE 100 MG TAB PO SCH (08:50)
[2018-08-29] MEDS: NAPHAZOLINE 0.012% 15 ML OPH BOTH EYES SCH ×4 (08:50→21:29)
[2018-08-29] MEDS: METOCLOPRAMIDE 10 MG INJ IV SCH ×2 (08:50→20:05)
[2018-08-29] MEDS: QUETIAPINE 100 MG TAB GTB SCH ×2 (08:50→21:28)
[2018-08-29] MEDS: FAMOTIDINE 20 MG TAB GTB SCH ×2 (08:50→21:28)
[2018-08-29] MEDS: ENOXAPARIN 40 MG/0.4 ML SYG SC SCH ×2 (08:51→21:39)
--- NOTE | 2018-08-29 09:50 | PN ---
Date/Time of Note Date/Time of Note DATE: 08/29/18 TIME: 09:47 Assessment/Plan VTE Prophylaxis Risk score (from Ns)>0 risk: 10 SCD applied (from [facility]): No SCD contraindicated: other Pharmacological prophylaxis: LMWH Lines/Catheters IV Catheter Type (from Nrs): PICC Line Central line still needed: Yes Urinary Cath still in place: Yes Reason Cath still needed: urinary retention Assessment/Plan Hospital Course S: Pt continues on cool aerosol via trach. Off of fentanyl. Still with secretions requiring suctioning, and fever. C. difficile test was negative. O: VS - see below PE: Gen: Morbidly obese man lying in bed, opens eyes Neck: Obese, trach, no lymphadenopathy appreciated HEENT: Clear oropharynx, moist mucous membranes Card: Regular rate and rhythm, distant heart sounds Pulm: distant lung sounds. Abd: Morbidly obese, soft, nontender. Ext: Bilateral LE chronic venous stasis changes. Neuro: No focal deficits Assessment/Plan: 32M morbidly obese presents with hypercapnic respiratory failure and pneumonia. #Hypoxic and hypercapnic respiratory failure - Likely from obesity (ANDREW), exacerbated by pneumonia - Intubated 08/09, then Trach 08/24- PEG placed 08/23- Since tracheostomy patient has had copious white secretions, As of 08/27 he's off vent, on trach collar with now cool aerosol, appears to be doing well. 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 - Unfortunately patient exceeds the weight limit for CT scanner DVT: lovenox GI: Protonix IV Critical care time spent in patient care today equals 45 minutes. Result Diagram: 08/29/18 0504 08/29/18 0504 Results 24hrs Laboratory Tests Test 08/29/18 05:04 White Blood Count 14.6 H Red Blood Count 4.70 Hemoglobin 11.0 L Hematocrit 40.2 L Mean Corpuscular Volume 85.5 Mean Corpuscular Hemoglobin 23.4 L Mean Corpuscular Hemoglobin Concent 27.4 L Red Cell Distribution Width 17.8 H Platelet Count 332 Mean Platelet Volume 9.2 Immature Granulocytes % 1.200 H Neutrophils % 82.1 H Segmented Neutrophils % (Manual) 84 H Band Neutrophils % (Manual) 2 Lymphocytes % 8.1 L Lymphocytes % (Manual) 4 L Reactive Lymphocytes % (Manual) 3 H Monocytes % 8.5 Monocytes % (Manual) 7 Eosinophils % 0.0 Basophils % 0.1 Nucleated Red Blood Cells % 0.0 Immature Granulocytes # 0.180 H Neutrophils # 12.0 H Neutrophils # (Manual) 12.3 H Band Neutrophils # 0.2 Lymphocytes (Manual) 0.5 L Lymphocytes # 1.2 Reactive Lymphocytes # 0.4 H Monocytes # 1.2 H Monocytes # (Manual) 1.0 H Eosinophils # 0.0 Basophils # 0.0 Nucleated Red Blood Cells # 0.0 Platelet Estimate NORMAL Giant Platelets 1 H Polychromasia 3+ Anisocytosis 1+ Microcytosis 1+ Stomatocytes 2+ Sodium Level 144 Potassium Level 3.7 Chloride Level 99 Carbon Dioxide Level 43 *H Anion Gap 2 L Blood Urea Nitrogen 29 H Creatinine 0.51 L Est Glomerular Filtrat Rate mL/min > 60 Glucose Level 125 Calcium Level 9.4 Phosphorus Level 3.3 Magnesium Level 1.8 Exam/Review of Systems Exam Vitals Vital Signs Date Temp Pulse Resp B/P (MAP) Pulse Ox O2 O2 Flow FiO2 Time Delivery Rate 08/29/18 10.0 08:00 08/29/18 102.2 124 23 124/89 98 Trach 08:00 (101) Collar 08/29/18 40 05:27 Intake and Output 08/28/18 08/28/18 08/29/18 1515:00 23:00 07:00 IntakeIntake Total 200 ml 100 ml OutputOutput Total 1675 ml 1850 ml 700 ml BalanceBalance -1475 ml -1750 ml -700 ml Results Results 24hrs Laboratory Tests Test 08/29/18 05:04 White Blood Count 14.6 H Red Blood Count 4.70 Hemoglobin 11.0 L Hematocrit 40.2 L Mean Corpuscular Volume 85.5 Mean Corpuscular Hemoglobin 23.4 L Mean Corpuscular Hemoglobin Concent 27.4 L Red Cell Distribution Width 17.8 H Platelet Count 332 Mean Platelet Volume 9.2 Immature Granulocytes % 1.200 H Neutrophils % 82.1 H Segmented Neutrophils % (Manual) 84 H Band Neutrophils % (Manual) 2 Lymphocytes % 8.1 L Lymphocytes % (Manual) 4 L Reactive Lymphocytes % (Manual) 3 H Monocytes % 8.5 Monocytes % (Manual) 7 Eosinophils % 0.0 Basophils % 0.1 Nucleated Red Blood Cells % 0.0 Immature Granulocytes # 0.180 H Neutrophils # 12.0 H Neutrophils # (Manual) 12.3 H Band Neutrophils # 0.2 Lymphocytes (Manual) 0.5 L Lymphocytes # 1.2 Reactive Lymphocytes # 0.4 H Monocytes # 1.2 H Monocytes # (Manual) 1.0 H Eosinophils # 0.0 Basophils # 0.0 Nucleated Red Blood Cells # 0.0 Platelet Estimate NORMAL Giant Platelets 1 H Polychromasia 3+ Anisocytosis 1+ Microcytosis 1+ Stomatocytes 2+ Sodium Level 144 Potassium Level 3.7 Chloride Level 99 Carbon Dioxide Level 43 *H Anion Gap 2 L Blood Urea Nitrogen 29 H Creatinine 0.51 L Est Glomerular Filtrat Rate mL/min > 60 Glucose Level 125 Calcium Level 9.4 Phosphorus Level 3.3 Magnesium Level 1.8 Medications Medication Current Medications IV Flush (NS 3 ml) 3 ml PER PROTOCOL IV ; Start 08/08/18 at 17:30 Ondansetron HCl (Zofran Inj) 4 mg Q6H PRN IV NAUSEA; Start 08/08/18 at 17:30 Haloperidol (Haldol) 5 mg PRN PRN IM AGGITATED Last administered on 08/16/18 08:32; Admin Dose 5 MG; Start 08/08/18 at 22:00 Propofol 100 ml @ 6.111 mls/ hr Q12H IV Last administered on 08/27/18at 21:38; Admin Dose 24.444 MLS/HR; Start 08/09/18 at 05:30 Fentanyl 100 ml @ 2.5 mls/hr TITRATE IV Last administered on 08/28/18 00:37; Admin Dose 8 MLS/HR; Start 08/09/18 at 06:30 Enoxaparin Sodium (Lovenox) 40 mg Q12H SC Last administered on 08/29/18 08:51; Admin Dose 40 MG; Start 08/09/18 at 21:00 Famotidine (Pepcid) 20 mg BID GTB Last administered on 08/29/18 08:50; Admin Dose 20 MG; Start 08/12/18 at 09:00 Midazolam HCl 50 ml @ 1 mls/hr TITRATE IV Last administered on 08/25/18 11:49; Admin Dose 4 MLS/HR; Start 08/13/18 at 08:30 Naphazoline HCl (Clear Eyes / Naphcon) 2 drop QID BOTH EYES Last administered on 08/29/18 08:50; Admin Dose 2 DROP; Start 08/16/18 at 18:14 Acetaminophen (Tylenol Liquid) 650 mg Q6H PRN NGT MILD PAIN(1-3)OR ELEVATED TEMP Last administered on 08/29/18 05:13; Admin Dose 650 MG; Start 08/17/18 at 00:57 Fluconazole (Diflucan) 100 mg DAILY PO Last administered on 08/29/18 08:50; Admin Dose 100 MG; Start 08/23/18 at 15:00 Methylprednisolone Sodium Succinate (Solu-Medrol) 40 mg Q12 IV Last admi nistered on 08/29/18 08:49; Admin Dose 40 MG; Start 08/25/18 at 21:00 Colistimethate Sodium 200 mg/ Sodium Chloride 100 ml @ 200 mls/hr Q12 IVPB Last administered on 08/29/18 08:49; Admin Dose 200 MLS/HR; Start 08/26/18 at 21:00 Levalbuterol (Xopenex Hfa) 4 puff Q4H RESP THERAPY PRN INH SHORTNESS OF BREATH Last administered on 08/27/18 05:08; Admin Dose 4 PUFF; Start 08/26/18 at 20:00 Ipratropium [place] (Atrovent Hfa) 2 puff QID RESP THERAPY PRN INH SHORTNESS OF BREATH Last administered on 08/27/18 05:08; Admin Dose 2 PUFF; Start 08/26/18 at 20:00 Metoclopramide HCl (Reglan) 5 mg BID IV Last administered on 08/29/18 08:50; Admin Dose 5 MG; Start 08/27/18 at 21:00 Quetiapine Fumarate (Seroquel) 100 mg BID GTB Last administered on 08/29/18 08:50; Admin Dose 100 MG; Start 08/27/18 at 21:00 Lorazepam (Ativan) 1 mg Q6H PRN IV AGITATION Last administered on 08/28/18at 22:52; Admin Dose 1 MG; Start 08/28/18 at 02:30 Morphine Sulfate (morphine) 2 mg Q2H PRN IV SEVERE PAIN LEVEL 7-10 Last administered on 08/29/18at 07:39; Admin Dose 2 MG; Start 08/28/18 at 09:00 Docusate Sodium (Colace Liquid Cup) 200 mg BID PRN NGT CONSTIPATION; Start 08/29/18 at 10:00 Polyethylene Glycol (Miralax) 17 gm DAILY PRN GTB CONSTIPATION; Start 08/29/18 at 10:00 RC GO Aug 29, 2018 09:49
[2018-08-29] MEDS ORDERED: POLYETHYLENE GLYCOL 17 GM PACKET GTB PRN (10:00)
[2018-08-29] MEDS ORDERED: DOCUSATE SODIUM 10 MG/ML (10ML CUP) NGT PRN (10:00)
[2018-08-29] MEDS: LORAZEPAM 2 MG INJ IV PRN ×2 (10:01→16:53)
--- NOTE | 2018-08-29 10:21 | CONS ---
Consult Date/Type/Reason Admit Date/Time Aug 08, 2018 at 17:18 Initial Consult Date 08/09/18 Type of Consult Pulmonary Date/Time of Note DATE: 08/29/18 TIME: 10:19 Subjective Patient remains febrile and encephalopathic. Ongoing profuse diarrhea and moderate secretions requiring frequent pulmonary toilet. Objective Vital Signs Date Temp Pulse Resp B/P (MAP) Pulse Ox O2 O2 Flow FiO2 Time Delivery Rate 08/29/18 10.0 08:00 08/29/18 102.2 124 23 124/89 98 Trach 08:00 (101) Collar 08/29/18 40 05:27 Intake and Output 08/28/18 08/28/18 08/29/18 1515:00 23:00 07:00 IntakeIntake Total 200 ml 100 ml OutputOutput Total 1675 ml 1850 ml 700 ml BalanceBalance -1475 ml -1750 ml -700 ml Exam GENERAL: Obese young gentleman tracheostomy on cool aerosol VITAL SIGNS: per chart NECK: Supple. No JVD or lymphadenopathy. CARDIAC EXAM: S1, S2. No added sounds or murmurs. CHEST: clear bilaterally, No added sounds, rales or wheezes ABDOMEN: Soft, nontender. No guarding or rebound. EXTREMITIES: No cyanosis, clubbing, edema +2 NEUROLOGIC: Generalized weakness. No focal deficits. Vent Setting Ventilator Support Mode: CPAP, PS Fraction of Inspired Oxygen pe: 40 Positive End Expiratory Pressu: 8.0 Results/Medications Result Diagram: 08/29/18 0504 08/29/18 0504 Results 24 hrs Laboratory Tests Test 08/29/18 05:04 White Blood Count 14.6 H Red Blood Count 4.70 Hemoglobin 11.0 L Hematocrit 40.2 L Mean Corpuscular Volume 85.5 Mean Corpuscular Hemoglobin 23.4 L Mean Corpuscular Hemoglobin Concent 27.4 L Red Cell Distribution Width 17.8 H Platelet Count 332 Mean Platelet Volume 9.2 Immature Granulocytes % 1.200 H Neutrophils % 82.1 H Segmented Neutrophils % (Manual) 84 H Band Neutrophils % (Manual) 2 Lymphocytes % 8.1 L Lymphocytes % (Manual) 4 L Reactive Lymphocytes % (Manual) 3 H Monocytes % 8.5 Monocytes % (Manual) 7 Eosinophils % 0.0 Basophils % 0.1 Nucleated Red Blood Cells % 0.0 Immature Granulocytes # 0.180 H Neutrophils # 12.0 H Neutrophils # (Manual) 12.3 H Band Neutrophils # 0.2 Lymphocytes (Manual) 0.5 L Lymphocytes # 1.2 Reactive Lymphocytes # 0.4 H Monocytes # 1.2 H Monocytes # (Manual) 1.0 H Eosinophils # 0.0 Basophils # 0.0 Nucleated Red Blood Cells # 0.0 Platelet Estimate NORMAL Giant Platelets 1 H Polychromasia 3+ Anisocytosis 1+ Microcytosis 1+ Stomatocytes 2+ Sodium Level 144 Potassium Level 3.7 Chloride Level 99 Carbon Dioxide Level 43 *H Anion Gap 2 L Blood Urea Nitrogen 29 H Creatinine 0.51 L Est Glomerular Filtrat Rate mL/min > 60 Glucose Level 125 Calcium Level 9.4 Phosphorus Level 3.3 Magnesium Level 1.8 Medications Current Medications IV Flush (NS 3 ml) 3 ml PER PROTOCOL IV ; Start 08/08/18 at 17:30 Ondansetron HCl (Zofran Inj) 4 mg Q6H PRN IV NAUSEA; Start 08/08/18 at 17:30 Haloperidol (Haldol) 5 mg PRN PRN IM AGGITATED Last administered on 08/16/18 08:32; Admin Dose 5 MG; Start 08/08/18 at 22:00 Propofol 100 ml @ 6.111 mls/ hr Q12H IV Last administered on 08/27/18 21:38; Admin Dose 24.444 MLS/HR; Start 08/09/18 at 05:30 Fentanyl 100 ml @ 2.5 mls/hr TITRATE IV Last administered on 08/28/18 00:37; Admin Dose 8 MLS/HR; Start 08/09/18 at 06:30 Enoxaparin Sodium (Lovenox) 40 mg Q12H SC Last administered on 08/29/18 08:51; Admin Dose 40 MG; Start 08/09/18 at 21:00 Famotidine (Pepcid) 20 mg BID GTB Last administered on 08/29/18 08:50; Admin Dose 20 MG; Start 08/12/18 at 09:00 Midazolam HCl 50 ml @ 1 mls/hr TITRATE IV Last administered on 08/25/18 11:49; Admin Dose 4 MLS/HR; Start 08/13/18 at 08:30 Naphazoline HCl (Clear Eyes / Naphcon) 2 drop QID BOTH EYES Last administered on 08/29/18 08:50; Admin Dose 2 DROP; Start 08/16/18 at 18:14 Acetaminophen (Tylenol Liquid) 650 mg Q6H PRN NGT MILD PAIN(1-3)OR ELEVATED TEMP Last administered on 08/29/18 05:13; Admin Dose 650 MG; Start 08/17/18 at 00:57 Fluconazole (Diflucan) 100 mg DAILY PO Last administered on 08/29/18 08:50; Admin Dose 100 MG; Start 08/23/18 at 15:00 Methylprednisolone Sodium Succinate (Solu-Medrol) 40 mg Q12 IV Last administered on 08/29/18 08:49; Admin Dose 40 MG; Start 08/25/18 at 21:00 Colistimethate Sodium 200 mg/ Sodium Chloride 100 ml @ 200 mls/hr Q12 IVPB Last administered on 08/29/18 08:49; Admin Dose 200 MLS/HR; Start 08/26/18 at 21:00 Levalbuterol (Xopenex Hfa) 4 puff Q4H RESP THERAPY PRN INH SHORTNESS OF BREATH Last administered on 08/27/18 05:08; Admin Dose 4 PUFF; Start 08/26/18 at 20:00 Ipratropium [place] (Atrovent Hfa) 2 puff QID RESP THERAPY PRN INH SHORTNESS OF BREATH Last administered on 08/27/18 05:08; Admin Dose 2 PUFF; Start 08/26/18 at 20:00 Metoclopramide HCl (Reglan) 5 mg BID IV Last administered on 08/29/18 08:50; Admin Dose 5 MG; Start 08/27/18 at 21:00 Quetiapine Fumarate (Seroquel) 100 mg BID GTB Last administered on 08/29/18 08:50; Admin Dose 100 MG; Start 08/27/18 at 21:00 Lorazepam (Ativan) 1 mg Q6H PRN IV AGITATION Last administered on 08/29/18 10:01; Admin Dose 1 MG; Start 08/28/18 at 02:30 Morphine Sulfate (morphine) 2 mg Q2H PRN IV SEVERE PAIN LEVEL 7-10 Last administered on 08/29/18 07:39; Admin Dose 2 MG; Start 2/11/19 at 09:00 Docusate Sodium (Colace Liquid Cup) 200 mg BID PRN NGT CONSTIPATION; Start 08/29/18 at 10:00 Polyethylene Glycol (Miralax) 17 gm DAILY PRN GTB CONSTIPATION; Start 08/29/18 at 10:00 Assessment/Plan Hospital Course (Demo Recall) IMP: 1. Acute on chronic hypoxemic and hypercapnic respiratory failure, failed multiple weaning trials status post tracheostomy 2. Component of diastolic dysfunction 3. History of obesity hypoventilation syndrome and probable obstructive sleep apnea 4. Leukocytosis 5. Anemia RECS: 1. Continue trach collar as tolerated 2. Follow-up sputum/trach aspirate GS/Cx 3. F/U Stool C.Diff 4. Increase seroquel 100 mg BID; lower propofol and fentanyl--> off 5. Resume tube feeding if tolerated 40 min cc time No stable for transfer to telemetry yet. JULIETH PUENTE MD, FCCP Aug 29, 2018 10:21
--- NOTE | 2018-08-29 12:47 | CONS ---
Assessment/Plan Assessment/Plan Hospital Course (Demo Recall) Patient remains unchanged still with ongoing fevers T-max 103.1 he tolerates T- piece, WBC went down to 14.6 platelets 332 neutrophils 82.1 BUN 29 creatinine 0.51 Microbiology: Blood culture on August 26 grew coag negative staph suspicious sputum culture growing Acinetobacter Antimicrobials: Colistin, fluconazole Indwelling: Trach PEG Santiago catheter, PICC line Physical examination: This is a morbidly obese well-developed middle-aged man who is intubated sedated in no distress. Head atraumatic normocephalic, bucal mucosa dry, neck is obese. Chest rise symmetrical breath sounds diminished. Heart: S1-S2. Abdomen obese distended bowel sounds hypoactive. Extremities with edema Assessment: 1. Sepsis with ongoing fevers likely secondary to infected PICC line 2. Acute hypoxemic respiratory failure/ pneumonia 3. Morbid obesity 4. Sleep apnea with hypoventilation syndrome Plan: Clinically stable, were going to add Zyvox to the regimen, continue on current antibiotics, consider discontinue PICC line DEBORAH RN Consultation Date/Type/Reason Admit Date/Time Aug 08, 2018 at 17:18 Initial Consult Date 08/09/18 Type of Consult ID Date/Time of Note DATE: 08/29/18 TIME: 12:45 Exam/Review of Systems Exam Vitals Vital Signs Date Temp Pulse Resp B/P (MAP) Pulse Ox O2 O2 Flow FiO2 Time Delivery Rate 08/29/18 103.1 12:33 08/29/18 10.0 08:00 08/29/18 124 23 124/89 98 Trach 08:00 (101) Collar 08/29/18 40 05:27 Intake and Output 08/28/18 08/28/18 08/29/18 1515:00 23:00 07:00 IntakeIntake Total 200 ml 100 ml OutputOutput Total 1675 ml 1850 ml 700 ml BalanceBalance -1475 ml -1750 ml -700 ml Results Result Diagram: 08/29/18 0504 08/29/18 0504 Results 24hrs Laboratory Tests Test 08/29/18 05:04 White Blood Count 14.6 H Red Blood Count 4.70 Hemoglobin 11.0 L Hematocrit 40.2 L Mean Corpuscular Volume 85.5 Mean Corpuscular Hemoglobin 23.4 L Mean Corpuscular Hemoglobin Concent 27.4 L Red Cell Distribution Width 17.8 H Platelet Count 332 Mean Platelet Volume 9.2 Immature Granulocytes % 1.200 H Neutrophils % 82.1 H Segmented Neutrophils % (Manual) 84 H Band Neutrophils % (Manual) 2 Lymphocytes % 8.1 L Lymphocytes % (Manual) 4 L Reactive Lymphocytes % (Manual) 3 H Monocytes % 8.5 Monocytes % (Manual) 7 Eosinophils % 0.0 Basophils % 0.1 Nucleated Red Blood Cells % 0.0 Immature Granulocytes # 0.180 H Neutrophils # 12.0 H Neutrophils # (Manual) 12.3 H Band Neutrophils # 0.2 Lymphocytes (Manual) 0.5 L Lymphocytes # 1.2 Reactive Lymphocytes # 0.4 H Monocytes # 1.2 H Monocytes # (Manual) 1.0 H Eosinophils # 0.0 Basophils # 0.0 Nucleated Red Blood Cells # 0.0 Platelet Estimate NORMAL Giant Platelets 1 H Polychromasia 3+ Anisocytosis 1+ Microcytosis 1+ Stomatocytes 2+ Sodium Level 144 Potassium Level 3.7 Chloride Level 99 Carbon Dioxide Level 43 *H Anion Gap 2 L Blood Urea Nitrogen 29 H Creatinine 0.51 L Est Glomerular Filtrat Rate mL/min > 60 Glucose Level 125 Calcium Level 9.4 Phosphorus Level 3.3 Magnesium Level 1.8 Medications Medication Current Medications IV Flush (NS 3 ml) 3 ml PER PROTOCOL IV ; Start 08/08/18 at 17:30 Ondansetron HCl (Zofran Inj) 4 mg Q6H PRN IV NAUSEA; Start 08/08/18 at 17:30 Haloperidol (Haldol) 5 mg PRN PRN IM AGGITATED Last administered on 08/16/18at 08:32; Admin Dose 5 MG; Start 08/08/18 at 22:00 Propofol 100 ml @ 6.111 mls/ hr Q12H IV Last administered on 08/27/18at 21:38; Admin Dose 24.444 MLS/HR; Start 08/09/18 at 05:30 Fentanyl 100 ml @ 2.5 mls/hr TITRATE IV Last administered on 08/28/18at 00:37; Admin Dose 8 MLS/HR; Start 08/09/18 at 06:30 Enoxaparin Sodium (Lovenox) 40 mg Q12H SC Last administered on 08/29/18at 08:51; Admin Dose 40 MG; Start 08/09/18 at 21:00 Famotidine (Pepcid) 20 mg BID GTB Last administered on 08/29/18 08:50; Admin Dose 20 MG; Start 08/12/18 at 09:00 Midazolam HCl 50 ml @ 1 mls/hr TITRATE IV Last administered on 08/25/18 11:49; Admin Dose 4 MLS/HR; Start 08/13/18 at 08:30 Naphazoline HCl (Clear Eyes / Naphcon) 2 drop QID BOTH EYES Last administered on 08/29/18 08:50; Admin Dose 2 DROP; Start 08/16/18 at 18:14 Acetaminophen (Tylenol Liquid) 650 mg Q6H PRN NGT MILD PAIN(1-3)OR ELEVATED TEMP Last administered on 08/29/18 12:33; Admin Dose 650 MG; Start 08/17/18 at 00:57 Fluconazole (Diflucan) 100 mg DAILY PO Last administered on 08/29/18 08:50; Admin Dose 100 MG; Start 08/23/18 at 15:00 Methylprednisolone Sodium Succinate (Solu-Medrol) 40 mg Q12 IV Last administered on 08/29/18 08:49; Admin Dose 40 MG; Start 08/25/18 at 21:00 Colistimethate Sodium 200 mg/ Sodium Chloride 100 ml @ 200 mls/hr Q12 IVPB Last administered on 08/29/18 08:49; Admin Dose 200 MLS/HR; Start 08/26/18 at 21:00 Levalbuterol (Xopenex Hfa) 4 puff Q4H RESP THERAPY PRN INH SHORTNESS OF BREATH Last administered on 08/27/18 05:08; Admin Dose 4 PUFF; Start 08/26/18 at 20:00 Ipratropium [place] (Atrovent Hfa) 2 puff QID RESP THERAPY PRN INH SHORTNESS OF BREATH Last administered on 08/27/18 05:08; Admin Dose 2 PUFF; Start 08/26/18 at 20:00 Metoclopramide HCl (Reglan) 5 mg BID IV Last administered on 08/29/18 08:50; Admin Dose 5 MG; Start 08/27/18 at 21:00 Quetiapine Fumarate (Seroquel) 100 mg BID GTB Last administered on 08/29/18 08:50; Admin Dose 100 MG; Start 08/27/18 at 21:00 Lorazepam (Ativan) 1 mg Q6H PRN IV AGITATION Last administered on 08/29/18at 10:01; Admin Dose 1 MG; Start 08/28/18 at 02:30 Morphine Sulfate (morphine) 2 mg Q2H PRN IV SEVERE PAIN LEVEL 7-10 Last administered on 08/29/18at 07:39; Admin Dose 2 MG; Start 08/28/18 at 09:00 Docusate Sodium (Colace Liquid Cup) 200 mg BID PRN NGT CONSTIPATION; Start 08/29/18 at 10:00 Polyethylene Glycol (Miralax) 17 gm DAILY PRN GTB CONSTIPATION; Start 08/29/18 at 10:00 JOCELYN VILLALTA NP Aug 29, 2018 12:47
[2018-08-29] MEDS: ZYVOX 600 MG TAB PO SCH ×2 (13:34→21:28)
--- NOTE | 2018-08-29 19:20 | PN ---
Date/Time of Note Date/Time of Note DATE: 08/29/18 TIME: 18:25 Assessment/Plan Lines/Catheters IV Catheter Type (from Nrsg): PICC Line Santiago in Place (from Nrsg): Yes Assessment/Plan Assessment/Plan Status post tracheostomy Tracheostomy site clean no signs of bleeding Continue vent support Tracheostomy care Pulmonary toilet Subjective 24 Hr Interval Summary Constitutional: improved Pain Control: mild Exam/Review of Systems Vital Signs Vitals Vital Signs Date Temp Pulse Resp B/P (MAP) Pulse Ox O2 O2 Flow FiO2 Time Delivery Rate 08/29/18 126 29 123/78 98 Trach 10.0 17:00 (93) Collar 08/29/18 40 16:05 08/29/18 102.3 16:00 Intake and Output 08/28/18 08/28/18 08/29/18 1515:00 23:00 07:00 IntakeIntake Total 200 ml 100 ml OutputOutput Total 1675 ml 1850 ml 700 ml BalanceBalance -1475 ml -1750 ml -700 ml Exam Eyes: nl conjunctiva, EOMI, nl lids, nl sclera ENMT: nl external ears & nose, nl lips & teeth, nl nasal mucosa & septum, mucosa pink and moist Neck: supple, non-tender Respiratory: clear to auscultation, normal air movement Cardiovascular: regular rate and rhythm, nl pulses Gastrointestinal: soft, nl liver, spleen, non-tender Musculoskeletal: nl extremities to inspection, nl gait and stance Results Result Diagram: 08/29/18 0504 08/29/18 0504 TIMMY DALAL MD Aug 29, 2018 18:35
[2018-08-30] VITALS (21 sets, daily range): BP systolic 108–148; BP diastolic 51–109; PULSE 102–133; RESP 22–36
[2018-08-30] MEDS: LORAZEPAM 2 MG INJ IV PRN (01:49)
[2018-08-30] MEDS: IBUPROFEN 600 MG TAB GTB PRN (02:02)
[2018-08-30] MEDS: ACETAMINOPHEN 650MG/20.3ML CUP NGT PRN ×2 (03:31→11:34)
[2018-08-30] MEDS: PROPOFOL 100 ML IV SCH ×2 (05:30→17:30)
[2018-08-30] MEDS: morphine 2 MG INJ IV PRN ×2 (08:03→22:24)
[2018-08-30] MEDS: METOCLOPRAMIDE 10 MG INJ IV SCH ×2 (08:23→21:20)
[2018-08-30] MEDS: METHYLPREDNISOLONE 40 MG INJ IV SCH ×2 (08:23→21:17)
[2018-08-30] MEDS: NAPHAZOLINE 0.012% 15 ML OPH BOTH EYES SCH ×4 (08:24→21:17)
[2018-08-30] MEDS: QUETIAPINE 100 MG TAB GTB SCH ×2 (08:24→21:45)
[2018-08-30] MEDS: ZYVOX 600 MG TAB PO SCH ×2 (08:24→21:17)
[2018-08-30] MEDS: FLUCONAZOLE 100 MG TAB PO SCH (08:24)
[2018-08-30] MEDS: FAMOTIDINE 20 MG TAB GTB SCH ×2 (08:24→21:17)
[2018-08-30] MEDS: ENOXAPARIN 40 MG/0.4 ML SYG SC SCH ×2 (08:29→21:20)
[2018-08-30] MEDS: COLISTIMETHATE 200 MG in SOD CHLORIDE 0.9% 100 ML IVPB SCH ×2 (08:32→22:01)
--- NOTE | 2018-08-30 08:53 | PN ---
Date/Time of Note Date/Time of Note DATE: 08/30/18 TIME: 08:50 Assessment/Plan VTE Prophylaxis Risk score (from Ns)>0 risk: 4 SCD applied (from Ns): No SCD contraindicated: other Pharmacological prophylaxis: LMWH Lines/Catheters IV [facility]ter Type (from [facility]): Peripheral IV Urinary Cath still in place: Yes Reason Cath still needed: urinary retention Assessment/Plan Hospital Course S: Pt still with significant fevers, also still with secretions requiring suctioning. Still having some loose stools. PICC was discontinued yesterday and tip sent for culture. O: VS - see below PE: Gen: Morbidly obese man lying in bed, opens eyes Neck: Obese, trach, no lymphadenopathy appreciated HEENT: Clear oropharynx, moist mucous membranes Card: Regular rate and rhythm, distant heart sounds Pulm: distant lung sounds. Abd: Morbidly obese, soft, nontender. Ext: Bilateral LE chronic venous stasis changes. Neuro: No focal deficits Assessment/Plan: 32M morbidly obese presents with hypercapnic respiratory failure and pneumonia. #Hypoxic and hypercapnic respiratory failure - Likely from obesity (ANDREW), exacerbated by pneumonia - Intubated 08/09, then Trach 08/24- PEG placed 08/23- Since tracheostomy patient has had copious white secretions, As of 08/27 he's off vent, on trach collar with now cool aerosol, appears to be doing well. -Continue suctioning, current antibiotics, O2 via cool aerosol - Breathing treatments as needed, follow pulmonary recommendations, continue steroids -Per ID recommendations, again the PICC was discontinued yesterday and send the tip for culture since the patient still has continued fevers # Pneumonia- Bilateral patchy infiltrates on CXR,WBC 16 on admission- on broad- spectrum antibiotics for MDR actinobacter PNA, and August 26 blood culture bottle shows positive staph - Monitor, continue current antibiotics, follow up pulmonary and follow-up ID recommendations. - Unfortunately patient exceeds the weight limit for CT scanner -Per discussion with pulmonary team, because patient still has loose stools and fevers, even though C. difficile test was negative, will go ahead and start low-dose p.o. vancomycin now DVT: lovenox GI: Protonix IV Critical care time spent in patient care today equals 45 minutes. Result Diagram: 08/30/1851808/30/18518 Results 24hrs Laboratory Tests Test 08/30/18 05:19 White Blood Count 19.4 #H Red Blood Count 4.56 L Hemoglobin 10.6 L Hematocrit 39.4 L Mean Corpuscular Volume 86.4 Mean Corpuscular Hemoglobin 23.2 L Mean Corpuscular Hemoglobin Concent 26.9 L Red Cell Distribution Width 17.8 H Platelet Count 250 # Mean Platelet Volume 9.7 Immature Granulocytes % 1.000 H Neutrophils % 89.1 H Lymphocytes % 4.3 L Monocytes % 5.4 Eosinophils % 0.0 Basophils % 0.2 Nucleated Red Blood Cells % 0.0 Immature Granulocytes # 0.200 H Neutrophils # 17.3 H Lymphocytes # 0.8 Monocytes # 1.1 H Eosinophils # 0.0 Basophils # 0.0 Nucleated Red Blood Cells # 0.0 Sodium Level 144 Potassium Level 3.6 Chloride Level 96 L Carbon Dioxide Level 39 H Anion Gap 9 # Blood Urea Nitrogen 30 H Creatinine 0.62 Est Glomerular Filtrat Rate mL/min > 60 Glucose Level 140 Calcium Level 9.4 Exam/Review of Systems Exam Vitals Vital Signs Date Temp Pulse Resp B/P (MAP) Pulse Ox O2 O2 Flow FiO2 Time Delivery Rate 08/30/18 129 27 139/65 100 Trach 07:00 (89) Collar 08/30/18 10.0 40 05:33 08/30/18 102.8 04:16 Intake and Output 08/29/18 08/29/18 08/30/18 1515:00 23:00 07:00 IntakeIntake Total 100 ml 200 ml 70 ml OutputOutput Total 730 ml 700 ml 990 ml BalanceBalance -630 ml -500 ml -920 ml Results Results 24hrs Laboratory Tests Test 08/30/18 05:19 White Blood Count 19.4 #H Red Blood Count 4.56 L Hemoglobin 10.6 L Hematocrit 39.4 L Mean Corpuscular Volume 86.4 Mean Corpuscular Hemoglobin 23.2 L Mean Corpuscular Hemoglobin Concent 26.9 L Red Cell Distribution Width 17.8 H Platelet Count 250 # Mean Platelet Volume 9.7 Immature Granulocytes % 1.000 H Neutrophils % 89.1 H Lymphocytes % 4.3 L Monocytes % 5.4 Eosinophils % 0.0 Basophils % 0.2 Nucleated Red Blood Cells % 0.0 Immature Granulocytes # 0.200 H Neutrophils # 17.3 H Lymphocytes # 0.8 Monocytes # 1.1 H Eosinophils # 0.0 Basophils # 0.0 Nucleated Red Blood Cells # 0.0 Sodium Level 144 Potassium Level 3.6 Chloride Level 96 L Carbon Dioxide Level 39 H Anion Gap 9 # Blood Urea Nitrogen 30 H Creatinine 0.62 Est Glomerular Filtrat Rate mL/min > 60 Glucose Level 140 Calcium Level 9.4 Medications Medication Current Medications IV Flush (NS 3 ml) 3 ml PER PROTOCOL IV ; Start 08/08/18 at 17:30 Ondansetron HCl (Zofran Inj) 4 mg Q6H PRN IV NAUSEA; Start 08/08/18 at 17:30 Haloperidol (Haldol) 5 mg PRN PRN IM AGGITATED Last administered on 08/16/18 08:32; Admin Dose 5 MG; Start 08/08/18 at 22:00 Propofol 100 ml @ 6.111 mls/ hr Q12H IV Last administered on 08/27/18 21:38; Admin Dose 24.444 MLS/HR; Start 08/09/18 at 05:30 Fentanyl 100 ml @ 2.5 mls/hr TITRATE IV Last administered on 08/28/18 00:37; Admin Dose 8 MLS/HR; Start 08/09/18 at 06:30 Enoxaparin Sodium (Lovenox) 40 mg Q12H SC Last administered on 08/30/18 08:29; Admin Dose 40 MG; Start 08/09/18 at 21:00 Famotidine (Pepcid) 20 mg BID GTB Last administered on 08/30/18 08:24; Admin Dose 20 MG; Start 08/12/18 at 09:00 Midazolam HCl 50 ml @ 1 mls/hr TITRATE IV Last administered on 08/25/18 11:49; Admin Dose 4 MLS/HR; Start 08/13/18 at 08:30 Naphazoline HCl (Clear Eyes / Naphcon) 2 drop QID BOTH EYES Last administered on 08/30/18 08:24; Admin Dose 2 DROP; Start 08/16/18 at 18:14 Acetaminophen (Tylenol Liquid) 650 mg Q6H PRN NGT MILD PAIN(1-3)OR ELEVATED TEMP Last administered on 08/30/18 03:31; Admin Dose 650 MG; Start 08/17/18 at 00:57 Fluconazole (Diflucan) 100 mg DAILY PO Last administered on 08/30/18 08:24; Admin Dose 100 MG; Start 08/23/18 at 15:00 Methylprednisolone Sodium Succinate (Solu-Medrol) 40 mg Q12 IV Last administered on 08/30/18 08:23; Admin Dose 40 MG; Start 08/25/18 at 21:00 Colistimethate Sodium 200 mg/ Sodium Chloride 100 ml @ 200 mls/hr Q12 IVPB Last administered on 08/30/18 08:32; Admin Dose 200 MLS/HR; Start 08/26/18 at 21:00 Levalbuterol (Xopenex Hfa) 4 puff Q4H RESP THERAPY PRN INH SHORTNESS OF BREATH Last administered on 08/27/18 05:08; Admin Dose 4 PUFF; Start 08/26/18 at 20:00 Ipratropium [place] (Atrovent Hfa) 2 puff QID RESP THERAPY PRN INH SHORTNESS OF BREATH Last administered on 08/27/18 05:08; Admin Dose 2 PUFF; Start 08/26/18 at 20:00 Metoclopramide HCl (Reglan) 5 mg BID IV Last administered on 08/30/18 08:23; Admin Dose 5 MG; Start 08/27/18 at 21:00 Quetiapine Fumarate (Seroquel) 100 mg BID GTB Last administered on 08/30/18 08:24; Admin Dose 100 MG; Start 08/27/18 at 21:00 Lorazepam (Ativan) 1 mg Q6H PRN IV AGITATION Last administered on 08/30/18 01:49; Admin Dose 1 MG; Start 08/28/18 at 02:30 Morphine Sulfate (morphine) 2 mg Q2H PRN IV SEVERE PAIN LEVEL 7-10 Last administered on 08/30/18 08:03; Admin Dose 2 MG; Start 08/28/18 at 09:00 Docusate Sodium (Colace Liquid Cup) 200 mg BID PRN NGT CONSTIPATION; Start 08/29/18 at 10:00 Polyethylene Glycol (Miralax) 17 gm DAILY PRN GTB CONSTIPATION; Start 08/29/18 at 10:00 Linezolid (Zyvox) 600 mg BID PO Last administered on 08/30/18 08:24; Admin Dose 600 MG; Start 08/29/18 at 13:00 Ibuprofen (Motrin) 600 mg Q6H PRN GTB MILD PAIN LEVEL 1-3 Last administered on 08/30/18at 02:02; Admin Dose 600 MG; Start 08/29/18 at 15:30 Vancomycin HCl (Vancomycin Oral Syringe) 125 mg Q6 PO ; Start 08/30/18 at 09:00; Status RC HENNESSY Aug 30, 2018 08:53
[2018-08-30] MEDS: VANCOMYCIN HCL 250 MG/5ML POSYG PO SCH ×3 (09:30→18:06)
--- NOTE | 2018-08-30 11:09 | CONS ---
Consult Date/Type/Reason Admit Date/Time Aug 08, 2018 at 17:18 Initial Consult Date 08/09/18 Type of Consult Pulmonary Date/Time of Note DATE: 08/30/18 TIME: 11:08 Subjective Continues to remain febrile with copious secretions and significant diarrhea. Still encephalopathic. Objective Vital Signs Date Temp Pulse Resp B/P (MAP) Pulse Ox O2 O2 Flow FiO2 Time Delivery Rate 08/30/18 131 08:00 08/30/18 27 139/65 100 Trach 07:00 (89) Collar 08/30/18 10.0 40 05:33 08/30/18 102.8 04:16 Intake and Output 08/29/18 08/29/18 08/30/18 1414:59 22:59 06:59 IntakeIntake Total 100 ml 200 ml 60 ml OutputOutput Total 750 ml 690 ml 1040 ml BalanceBalance -650 ml -490 ml -980 ml Exam GENERAL: Obese young gentleman tracheostomy on cool aerosol VITAL SIGNS: per chart NECK: Supple. No JVD or lymphadenopathy. CARDIAC EXAM: S1, S2. No added sounds or murmurs. CHEST: clear bilaterally, No added sounds, rales or wheezes ABDOMEN: Soft, nontender. No guarding or rebound. EXTREMITIES: No cyanosis, clubbing, edema +2 NEUROLOGIC: Generalized weakness. No focal deficits. Vent Setting Ventilator Support Mode: CPAP, PS Fraction of Inspired Oxygen pe: 40 Positive End Expiratory Pressu: 8.0 Results/Medications Result Diagram: 08/30/1819 08/30/1819 Results 24 hrs Laboratory Tests Test 08/30/18 05:19 White Blood Count 19.4 #H Red Blood Count 4.56 L Hemoglobin 10.6 L Hematocrit 39.4 L Mean Corpuscular Volume 86.4 Mean Corpuscular Hemoglobin 23.2 L Mean Corpuscular Hemoglobin Concent 26.9 L Red Cell Distribution Width 17.8 H Platelet Count 250 # Mean Platelet Volume 9.7 Immature Granulocytes % 1.000 H Neutrophils % 89.1 H Lymphocytes % 4.3 L Monocytes % 5.4 Eosinophils % 0.0 Basophils % 0.2 Nucleated Red Blood Cells % 0.0 Immature Granulocytes # 0.200 H Neutrophils # 17.3 H Lymphocytes # 0.8 Monocytes # 1.1 H Eosinophils # 0.0 Basophils # 0.0 Nucleated Red Blood Cells # 0.0 Sodium Level 144 Potassium Level 3.6 Chloride Level 96 L Carbon Dioxide Level 39 H Anion Gap 9 # Blood Urea Nitrogen 30 H Creatinine 0.62 Est Glomerular Filtrat Rate mL/min > 60 Glucose Level 140 Calcium Level 9.4 Medications Current Medications IV Flush (NS 3 ml) 3 ml PER PROTOCOL IV ; Start 08/08/18 at 17:30 Ondansetron HCl (Zofran Inj) 4 mg Q6H PRN IV NAUSEA; Start 08/08/18 at 17:30 Haloperidol (Haldol) 5 mg PRN PRN IM AGGITATED Last administered on 08/16/18 08:32; Admin Dose 5 MG; Start 08/08/18 at 22:00 Propofol 100 ml @ 6.111 mls/ hr Q12H IV Last administered on 08/27/18 21:38; Admin Dose 24.444 MLS/HR; Start 08/09/18 at 05:30 Fentanyl 100 ml @ 2.5 mls/hr TITRATE IV Last administered on 08/28/18 00:37; Admin Dose 8 MLS/HR; Start 08/09/18 at 06:30 Enoxaparin Sodium (Lovenox) 40 mg Q12H SC Last administered on 08/30/18 08:29; Admin Dose 40 MG; Start 08/09/18 at 21:00 Famotidine (Pepcid) 20 mg BID GTB Last administered on 08/30/18 08:24; Admin D ose 20 MG; Start 08/12/18 at 09:00 Midazolam HCl 50 ml @ 1 mls/hr TITRATE IV Last administered on 08/25/18 11:49; Admin Dose 4 MLS/HR; Start 08/13/18 at 08:30 Naphazoline HCl (Clear Eyes / Naphcon) 2 drop QID BOTH EYES Last administered on 08/30/18 08:24; Admin Dose 2 DROP; Start 08/16/18 at 18:14 Acetaminophen (Tylenol Liquid) 650 mg Q6H PRN NGT MILD PAIN(1-3)OR ELEVATED TEMP Last administered on 08/30/18 03:31; Admin Dose 650 MG; Start 08/17/18 at 00:57 Fluconazole (Diflucan) 100 mg DAILY PO Last administered on 08/30/18 08:24; Admin Dose 100 MG; Start 08/23/18 at 15:00 Methylprednisolone Sodium Succinate (Solu-Medrol) 40 mg Q12 IV Last administered on 08/30/18 08:23; Admin Dose 40 MG; Start 08/25/18 at 21:00 Colistimethate Sodium 200 mg/ Sodium Chloride 100 ml @ 200 mls/hr Q12 IVPB Last administered on 08/30/18 08:32; Admin Dose 200 MLS/HR; Start 08/26/18 at 21:00 Levalbuterol (Xopenex Hfa) 4 puff Q4H RESP THERAPY PRN INH SHORTNESS OF BREATH Last administered on 08/27/18 05:08; Admin Dose 4 PUFF; Start 08/26/18 at 20:00 Ipratropium [place] (Atrovent Hfa) 2 puff QID RESP THERAPY PRN INH SHORTNESS OF BREATH Last administered on 08/27/18 05:08; Admin Dose 2 PUFF; Start 08/26/18 at 20:00 Metoclopramide HCl (Reglan) 5 mg BID IV Last administered on 08/30/18 08:23; Admin Dose 5 MG; Start 08/27/18 at 21:00 Quetiapine Fumarate (Seroquel) 100 mg BID GTB Last administered on 08/30/18 08:24; Admin Dose 100 MG; Start 08/27/18 at 21:00 Lorazepam (Ativan) 1 mg Q6H PRN IV AGITATION Last administered on 08/30/18 01:49; Admin Dose 1 MG; Start 08/28/18 at 02:30 Morphine Sulfate (morphine) 2 mg Q2H PRN IV SEVERE PAIN LEVEL 7-10 Last administered on 08/30/18 08:03; Admin Dose 2 MG; Start 08/28/18 at 09:00 Docusate Sodium (Colace Liquid Cup) 200 mg BID PRN NGT CONSTIPATION; Start 08/29/18 at 10:00 Polyethylene Glycol (Miralax) 17 gm DAILY PRN GTB CONSTIPATION; Start 08/29/18 at 10:00 Linezolid (Zyvox) 600 mg BID PO Last administered on 08/30/18 08:24; Admin Dos e 600 MG; Start 08/29/18 at 13:00 Ibuprofen (Motrin) 600 mg Q6H PRN GTB MILD PAIN LEVEL 1-3 Last administered on 08/30/18at 02:02; Admin Dose 600 MG; Start 08/29/18 at 15:30 Vancomycin HCl (Vancomycin Oral Syringe) 125 mg Q6 PO ; Start 08/30/18 at 09:30 Assessment/Plan Hospital Course (Demo Recall) IMP: 1. Acute on chronic hypoxemic and hypercapnic respiratory failure, failed multiple weaning trials status post tracheostomy 2. Component of diastolic dysfunction 3. History of obesity hypoventilation syndrome and probable obstructive sleep apnea 4. Leukocytosis 5. Anemia RECS: 1. Continue trach collar as tolerated 2. Follow-up sputum/trach aspirate GS/Cx 3. F/U Stool C.Diff consider empiric vancomycin for C. difficile 4. continue Seroquel for agitation 5. Resume tube feeding if tolerated 40 min cc time Keep in ICU. JULIETH PUENTE MD, FCCP Aug 30, 2018 11:09
--- NOTE | 2018-08-30 11:50 | CONS ---
Assessment/Plan Assessment/Plan Hospital Course (Demo Recall) Patient is in no distress comfortable on T-piece still with high fevers. T-max 103.8. Pulse 130 respirations 27 blood pressure 139/65 saturation 100 on trach collar Microbiology: Blood culture on August 26 grew coag negative staph suspicious sputum culture grew Acinetobacter, repeat urine culture negative Antimicrobials: Colistin, fluconazole, oral vancomycin, Zyvox Indwelling: Trach PEG Santiago catheter, PICC line Physical examination: This is a morbidly obese well-developed middle-aged man who is intubated sedated in no distress. Head atraumatic normocephalic, bucal mucosa dry, neck is obese. Chest rise symmetrical breath sounds diminished. Heart: S1-S2. Abdomen obese distended bowel sounds hypoactive. Extremities with edema Assessment: 1. Sepsis with ongoing fevers, status post PICC line removed yesterday 2. Acute hypoxemic respiratory failure/ pneumonia 3. Morbid obesity 4. Sleep apnea with hypoventilation syndrome Plan: Clinically stable, covered with broad-spectrum antibiotics and still febrile, we will repeat blood cultures again now, add Flagyl for anaerobic coverage, consider CT abdomen chest pelvis DW RN Consultation Date/Type/Reason Admit Date/Time Aug 08, 2018 at 17:18 Initial Consult Date 08/09/18 Type of Consult ID Date/Time of Note DATE: 08/30/18 TIME: 11:48 Exam/Review of Systems Exam Vitals Vital Signs Date Temp Pulse Resp B/P (MAP) Pulse Ox O2 O2 Flow FiO2 Time Delivery Rate 08/30/18 101.8 11:34 08/30/18 131 08:00 08/30/18 27 139/65 100 Trach 07:00 (89) Collar 08/30/18 10.0 40 05:33 Intake and Output 08/29/18 08/29/18 08/30/18 1515:00 23:00 07:00 IntakeIntake Total 100 ml 200 ml 70 ml OutputOutput Total 730 ml 700 ml 990 ml BalanceBalance -630 ml -500 ml -920 ml Results Result Diagram: 08/30/1851808/30/18518 Results 24hrs Laboratory Tests Test 08/30/18 05:19 White Blood Count 19.4 #H Red Blood Count 4.56 L Hemoglobin 10.6 L Hematocrit 39.4 L Mean Corpuscular Volume 86.4 Mean Corpuscular Hemoglobin 23.2 L Mean Corpuscular Hemoglobin Concent 26.9 L Red Cell Distribution Width 17.8 H Platelet Count 250 # Mean Platelet Volume 9.7 Immature Granulocytes % 1.000 H Neutrophils % 89.1 H Lymphocytes % 4.3 L Monocytes % 5.4 Eosinophils % 0.0 Basophils % 0.2 Nucleated Red Blood Cells % 0.0 Immature Granulocytes # 0.200 H Neutrophils # 17.3 H Lymphocytes # 0.8 Monocytes # 1.1 H Eosinophils # 0.0 Basophils # 0.0 Nucleated Red Blood Cells # 0.0 Sodium Level 144 Potassium Level 3.6 Chloride Level 96 L Carbon Dioxide Level 39 H Anion Gap 9 # Blood Urea Nitrogen 30 H Creatinine 0.62 Est Glomerular Filtrat Rate mL/min > 60 Glucose Level 140 Calcium Level 9.4 Medications Medication Current Medications IV Flush (NS 3 ml) 3 ml PER PROTOCOL IV ; Start 08/08/18 at 17:30 Ondansetron HCl (Zofran Inj) 4 mg Q6H PRN IV NAUSEA; Start 08/08/18 at 17:30 Haloperidol (Haldol) 5 mg PRN PRN IM AGGITATED Last administered on 08/16/18 08:32; Admin Dose 5 MG; Start 08/08/18 at 22:00 Propofol 100 ml @ 6.111 mls/ hr Q12H IV Last administered on 08/27/18 21:38; Admin Dose 24.444 MLS/HR; Start 08/09/18 at 05:30 Fentanyl 100 ml @ 2.5 mls/hr TITRATE IV Last administered on 08/28/18 00:37; Admin Dose 8 MLS/HR; Start 08/09/18 at 06:30 Enoxaparin Sodium (Lovenox) 40 mg Q12H SC Last administered on 08/30/18 08:29; Admin Dose 40 MG; Start 08/09/18 at 21:00 Famotidine (Pepcid) 20 mg BID GTB Last administered on 08/30/18 08:24; Admin Dose 20 MG; Start 08/12/18 at 09:00 Midazolam HCl 50 ml @ 1 mls/hr TITRATE IV Last administered on 08/25/18 11:49; Admin Dose 4 MLS/HR; Start 08/13/18 at 08:30 Naphazoline HCl (Clear Eyes / Naphcon) 2 drop QID BOTH EYES Last administered on 08/30/18 08:24; Admin Dose 2 DROP; Start 08/16/18 at 18:14 Acetaminophen (Tylenol Liquid) 650 mg Q6H PRN NGT MILD PAIN(1-3)OR ELEVATED TEMP Last administered on 08/30/18 11:34; Admin Dose 650 MG; Start 08/17/18 at 00:57 Fluconazole (Diflucan) 100 mg DAILY PO Last administered on 08/30/18 08:24; Admin Dose 100 MG; Start 08/23/18 at 15:00 Methylprednisolone Sodium Succinate (Solu-Medrol) 40 mg Q12 IV Last administered on 08/30/18 08:23; Admin Dose 40 MG; Start 08/25/18 at 21:00 Colistimethate Sodium 200 mg/ Sodium Chloride 100 ml @ 200 mls/hr Q12 IVPB Last administered on 08/30/18 08:32; Admin Dose 200 MLS/HR; Start 08/26/18 at 21:00 Levalbuterol (Xopenex Hfa) 4 puff Q4H RESP THERAPY PRN INH SHORTNESS OF BREATH Last administered on 08/27/18 05:08; Admin Dose 4 PUFF; Start 08/26/18 at 20:00 Ipratropium [place] (Atrovent Hfa) 2 puff QID RESP THERAPY PRN INH SHORTNESS OF BREATH Last administered on 08/27/18 05:08; Admin Dose 2 PUFF; Start 08/26/18 at 20:00 Metoclopramide HCl (Reglan) 5 mg BID IV Last administered on 08/30/18 08:23; Admin Dose 5 MG; Start 08/27/18 at 21:00 Quetiapine Fumarate (Seroquel) 100 mg BID GTB Last administered on 08/30/18 08:24; Admin Dose 100 MG; Start 08/27/18 at 21:00 Lorazepam (Ativan) 1 mg Q6H PRN IV AGITATION Last administered on 08/30/18 01:49; Admin Dose 1 MG; Start 08/28/18 at 02:30 Morphine Sulfate (morphine) 2 mg Q2H PRN IV SEVERE PAIN LEVEL 7-10 Last administered on 2/13/19at 08:03; Admin Dose 2 MG; Start 08/28/18 at 09:00 Docusate Sodium (Colace Liquid Cup) 200 mg BID PRN NGT CONSTIPATION; Start 08/29/18 at 10:00 Polyethylene Glycol (Miralax) 17 gm DAILY PRN GTB CONSTIPATION; Start 08/29/18 at 10:00 Linezolid (Zyvox) 600 mg BID PO Last administered on 08/30/18at 08:24; Admin Dose 600 MG; Start 08/29/18 at 13:00 Ibuprofen (Motrin) 600 mg Q6H PRN GTB MILD PAIN LEVEL 1-3 Last administered on 08/30/18at 02:02; Admin Dose 600 MG; Start 08/29/18 at 15:30 Vancomycin HCl (Vancomycin Oral Syringe) 125 mg Q6 PO Last administered on 08/30/18at 11:33; Admin Dose 125 MG; Start 08/30/18 at 09:30 JOCELYN VILLALTA NP Aug 30, 2018 11:50
[2018-08-30] MEDS: metroNIDAZOLE 500 MG TAB NGT SCH ×2 (14:08→21:17)
[2018-08-30] MEDS ORDERED: PANTOPRAZOLE IV 80 MG in SOD CHLORIDE 0.9% 100 ML IV SCH (15:30)
--- NOTE | 2018-08-30 21:29 | PN ---
Date/Time of Note Date/Time of Note DATE: 08/30/18 TIME: 21:28 Assessment/Plan Lines/Catheters IV Catheter Type (from Nrsg): Peripheral IV Santiago in Place (from Nrsg): Yes Assessment/Plan Assessment/Plan Status post tracheostomy Tracheostomy site clean no signs of bleeding Continue vent support Tracheostomy care Pulmonary toilet Subjective 24 Hr Interval Summary Constitutional: improved Pain Control: mild Exam/Review of Systems Vital Signs Vitals Vital Signs Date Temp Pulse Resp B/P (MAP) Pulse Ox O2 O2 Flow FiO2 Time Delivery Rate 08/30/18 119 21 100 Aerosol 10.0 40 20:12 T Tube 08/30/18 99.5 108/51 20:00 (70) Intake and Output 08/29/18 08/29/18 08/30/18 1414:59 22:59 06:59 IntakeIntake Total 100 ml 200 ml 60 ml OutputOutput Total 750 ml 690 ml 1040 ml BalanceBalance -650 ml -490 ml -980 ml Exam Eyes: nl conjunctiva, EOMI, nl lids, nl sclera ENMT: nl external ears & nose, nl lips & teeth, nl nasal mucosa & septum, mucosa pink and moist Neck: supple, non-tender Respiratory: clear to auscultation, normal air movement Gastrointestinal: soft, nl liver, spleen, non-tender Results Result Diagram: 08/30/1851808/30/18518 TIMMY DALAL MD Aug 30, 2018 21:29
[2018-08-31] VITALS (26 sets, daily range): BP systolic 103–133; BP diastolic 55–98; PULSE 85–149; RESP 19–34
[2018-08-31] MEDS: LORAZEPAM 2 MG INJ IV PRN (00:44)
[2018-08-31] MEDS: metroNIDAZOLE 500 MG TAB NGT SCH ×3 (06:36→21:41)
[2018-08-31] MEDS: ACETAMINOPHEN 650MG/20.3ML CUP NGT PRN (07:02)
[2018-08-31] MEDS: METHYLPREDNISOLONE 40 MG INJ IV SCH ×2 (09:02→20:32)
[2018-08-31] MEDS: METOCLOPRAMIDE 10 MG INJ IV SCH ×2 (09:02→20:32)
[2018-08-31] MEDS: NAPHAZOLINE 0.012% 15 ML OPH BOTH EYES SCH ×4 (09:02→20:31)
[2018-08-31] MEDS: QUETIAPINE 100 MG TAB GTB SCH ×2 (09:03→20:52)
[2018-08-31] MEDS: FLUCONAZOLE 100 MG TAB PO SCH (09:03)
[2018-08-31] MEDS: COLISTIMETHATE 200 MG in SOD CHLORIDE 0.9% 100 ML IVPB SCH ×2 (09:03→20:32)
[2018-08-31] MEDS: FAMOTIDINE 20 MG TAB GTB SCH ×2 (09:03→20:32)
[2018-08-31] MEDS: ZYVOX 600 MG TAB PO SCH ×2 (09:03→20:32)
[2018-08-31] MEDS: ENOXAPARIN 40 MG/0.4 ML SYG SC SCH ×2 (09:04→20:52)
--- NOTE | 2018-08-31 10:12 | PN ---
Date/Time of Note Date/Time of Note DATE: 08/31/18 TIME: 10:08 Assessment/Plan VTE Prophylaxis Risk score (from Ns)>0 risk: 6 SCD applied (from Ns): No SCD contraindicated: other Pharmacological prophylaxis: LMWH Lines/Catheters IV C[facility]ter Type (from [facility]): Peripheral IV Urinary Cath still in place: Yes Reason Cath still needed: urinary retention Assessment/Plan Hospital Course S: Pt still with significant fevers, still with secretions requiring suctioning. Still with loose stools. More tachycardia this morning. O: VS - see below PE: Gen: Morbidly obese man lying in bed, opens eyes Neck: Obese, trach, no lymphadenopathy appreciated HEENT: Clear oropharynx, moist mucous membranes Card: Sinus tach, distant heart sounds Pulm: distant lung sounds. Abd: Morbidly obese, soft, nontender, G-tube in place Ext: Bilateral LE chronic venous stasis changes. Neuro: No focal deficits Assessment/Plan: 32M morbidly obese presents with hypercapnic respiratory failure and pneumonia. #Hypoxic and hypercapnic respiratory failure - Likely from obesity (ANDREW), exacerbated by pneumonia - Intubated 08/09, then Trach 08/24- PEG placed 08/23- Since tracheostomy patient has had copious white secretions, As of 08/27 he's off vent, on trach collar with cool aerosol O2 supplementation, still with significant fevers and now with increasing tachycardia -Continue suctioning, current antibiotics, O2 via cool aerosol -Continue breathing treatments as needed, follow pulmonary recommendations, continue steroids -Per ID recommendations, again the PICC was discontinued 2 days ago and send the tip for culture since the patient still has continued fevers -Also now on p.o. Flagyl (given loose stools although C. difficile test was negative), and will start low-dose half-normal saline given his tachycardia and order for VQ scan. # Pneumonia- Bilateral patchy infiltrates on CXR,WBC 16 on admission- on broad- spectrum antibiotics for MDR actinobacter PNA, and from August 26 blood culture bottle shows positive staph as well. - Monitor, continue current antibiotics, follow up pulmonary and follow-up ID recommendations. - Unfortunately patient exceeds the weight limit for CT scanner, but again given tachycardia and possible concern of PE will try to obtain VQ scan to start DVT: lovenox GI: Protonix IV Critical care time spent in patient care today equals 45 minutes. Result Diagram: 08/31/18 0447 08/31/18 0447 Results 24hrs Laboratory Tests Test 08/31/18 04:47 White Blood Count 22.3 H Red Blood Count 5.06 Hemoglobin 11.6 L Hematocrit 43.5 Mean Corpuscular Volume 86.0 Mean Corpuscular Hemoglobin 22.9 L Mean Corpuscular Hemoglobin Concent 26.7 L Red Cell Distribution Width 17.7 H Platelet Count 226 Mean Platelet Volume 10.1 Immature Granulocytes % 1.100 H Neutrophils % 92.6 H Lymphocytes % 3.3 L Monocytes % 2.7 Eosinophils % 0.0 Basophils % 0.3 Nucleated Red Blood Cells % 0.0 Immature Granulocytes # 0.240 H Neutrophils # 20.6 H Lymphocytes # 0.7 L Monocytes # 0.6 Eosinophils # 0.0 Basophils # 0.1 Nucleated Red Blood Cells # 0.0 Sodium Level 143 Potassium Level 3.7 Chloride Level 93 L Carbon Dioxide Level 39 H Anion Gap 11 Blood Urea Nitrogen 26 H Creatinine 0.64 Est Glomerular Filtrat Rate mL/min > 60 Glucose Level 176 Calcium Level 9.5 Phosphorus Level 1.9 #L Magnesium Level 1.7 Exam/Review of Systems Exam Vitals Vital Signs Date Temp Pulse Resp B/P (MAP) Pulse Ox O2 O2 Flow FiO2 Time Delivery Rate 08/31/18 102.3 08:24 08/31/18 145 08:00 08/31/18 22 123/71 91 07:00 (88) 08/31/18 Trach 06:00 Collar 08/31/18 8.0 35 05:33 Intake and Output 08/30/18 08/30/18 08/31/18 1515:00 23:00 07:00 IntakeIntake Total 380 ml 30 ml 720 ml OutputOutput Total 1100 ml 330 ml 815 ml BalanceBalance -720 ml -300 ml -95 ml Results Results 24hrs Laboratory Tests Test 08/31/18 04:47 White Blood Count 22.3 H Red Blood Count 5.06 Hemoglobin 11.6 L Hematocrit 43.5 Mean Corpuscular Volume 86.0 Mean Corpuscular Hemoglobin 22.9 L Mean Corpuscular Hemoglobin Concent 26.7 L Red Cell Distribution Width 17.7 H Platelet Count 226 Mean Platelet Volume 10.1 Immature Granulocytes % 1.100 H Neutrophils % 92.6 H Lymphocytes % 3.3 L Monocytes % 2.7 Eosinophils % 0.0 Basophils % 0.3 Nucleated Red Blood Cells % 0.0 Immature Granulocytes # 0.240 H Neutrophils # 20.6 H Lymphocytes # 0.7 L Monocytes # 0.6 Eosinophils # 0.0 Basophils # 0.1 Nucleated Red Blood Cells # 0.0 Sodium Level 143 Potassium Level 3.7 Chloride Level 93 L Carbon Dioxide Level 39 H Anion Gap 11 Blood Urea Nitrogen 26 H Creatinine 0.64 Est Glomerular Filtrat Rate mL/min > 60 Glucose Level 176 Calcium Level 9.5 Phosphorus Level 1.9 #L Magnesium Level 1.7 Medications Medication Current Medications IV Flush (NS 3 ml) 3 ml PER PROTOCOL IV ; Start 08/08/18 at 17:30 Ondansetron HCl (Zofran Inj) 4 mg Q6H PRN IV NAUSEA; Start 08/08/18 at 17:30 Haloperidol (Haldol) 5 mg PRN PRN IM AGGITATED Last administered on 08/16/18 08:32; Admin Dose 5 MG; Start 08/08/18 at 22:00 Propofol 100 ml @ 6.111 mls/ hr Q12H IV Last administered on 08/27/18 21:38; Admin Dose 24.444 MLS/HR; Start 08/09/18 at 05:30 Fentanyl 100 ml @ 2.5 mls/hr TITRATE IV Last administered on 08/28/18 00:37; Admin Dose 8 MLS/HR; Start 08/09/18 at 06:30 Enoxaparin Sodium (Lovenox) 40 mg Q12H SC Last administered on 08/31/18 09:04; Admin Dose 40 MG; Start 08/09/18 at 21:00 Famotidine (Pepcid) 20 mg BID GTB Last administered on 08/31/18 09:03; Admin Dose 20 MG; Start 08/12/18 at 09:00 Midazolam HCl 50 ml @ 1 mls/hr TITRATE IV Last administered on 08/25/18 11:49; Admin Dose 4 MLS/HR; Start 08/13/18 at 08:30 Naphazoline HCl (Clear Eyes / Naphcon) 2 drop QID BOTH EYES Last administered on 08/31/18 09:02; Admin Dose 2 DROP; Start 08/16/18 at 18:14 Acetaminophen (Tylenol Liquid) 650 mg Q6H PRN NGT MILD PAIN(1-3)OR ELEVATED TEMP Last administered on 08/31/18 07:02; Admin Dose 650 MG; Start 08/17/18 at 00:57 Fluconazole (Diflucan) 100 mg DAILY PO Last administered on 08/31/18 09:03; Admin Dose 100 MG; Start 08/23/18 at 15:00 Methylprednisolone Sodium Succinate (Solu-Medrol) 40 mg Q12 IV Last adminis tered on 08/31/18 09:02; Admin Dose 40 MG; Start 08/25/18 at 21:00 Colistimethate Sodium 200 mg/ Sodium Chloride 100 ml @ 200 mls/hr Q12 IVPB Last administered on 08/31/18 09:03; Admin Dose 200 MLS/HR; Start 08/26/18 at 21:00 Levalbuterol (Xopenex Hfa) 4 puff Q4H RESP THERAPY PRN INH SHORTNESS OF BREATH Last administered on 08/27/18 05:08; Admin Dose 4 PUFF; Start 08/26/18 at 20:00 Ipratropium [place] (Atrovent Hfa) 2 puff QID RESP THERAPY PRN INH SHORTNESS OF BREATH Last administered on 08/27/18 05:08; Admin Dose 2 PUFF; Start 08/26/18 at 20:00 Metoclopramide HCl (Reglan) 5 mg BID IV Last administered on 08/31/18 09:02; Admin Dose 5 MG; Start 08/27/18 at 21:00 Quetiapine Fumarate (Seroquel) 100 mg BID GTB Last administered on 08/31/18 09:03; Admin Dose 100 MG; Start 08/27/18 at 21:00 Lorazepam (Ativan) 1 mg Q6H PRN IV AGITATION Last administered on 08/31/18 00:44; Admin Dose 1 MG; Start 08/28/18 at 02:30 Morphine Sulfate (morphine) 2 mg Q2H PRN IV SEVERE PAIN LEVEL 7-10 Last administered on 08/30/18 22:24; Admin Dose 2 MG; Start 08/28/18 at 09:00 Docusate Sodium (Colace Liquid Cup) 200 mg BID PRN NGT CONSTIPATION; Start 2/12/19 at 10:00 Polyethylene Glycol (Miralax) 17 gm DAILY PRN GTB CONSTIPATION; Start 08/29/18 at 10:00 Linezolid (Zyvox) 600 mg BID PO Last administered on 08/31/18at 09:03; Admin Dose 600 MG; Start 08/29/18 at 13:00 Ibuprofen (Motrin) 600 mg Q6H PRN GTB MILD PAIN LEVEL 1-3 Last administered on 08/30/18at 02:02; Admin Dose 600 MG; Start 08/29/18 at 15:30 Metronidazole (Flagyl) 500 mg Q8 NGT Last administered on 08/31/18at 06:36; Admin Dose 500 MG; Start 08/30/18 at 14:00 Potassium Phosphate 40 meq/ Sodium Chloride 259.0909 ml @ 64.773 m... ONCE ONCE IVPB ; Start 08/31/18 at 11:30; Stop 08/31/18 at 15:29 Sodium Chloride 1,000 ml @ 100 mls/hr Q10H IV ; Start 08/31/18 at 10:30; Stop 08/31/18 at 22:00 Scopolamine (Transderm-Scop) 1 patch Q72H TRANSDERM ; Start 08/31/18 at 10:30; Status [facility] Aug 31, 2018 10:12
[2018-08-31] MEDS: SOD CHLORIDE 0.45% 1,000 ML IV SCH ×2 (10:19→20:30)
[2018-08-31] MEDS: IBUPROFEN 600 MG TAB GTB PRN (10:25)
[2018-08-31] MEDS ORDERED: POTASSIUM PHOSPHATE 40 MEQ in SOD CHLORIDE 0.9% 250 ML IVPB ONE (11:30)
[2018-08-31] MEDS: SCOPOLAMINE 1.5 MG PATCH TRANSDERM SCH (11:37)
[2018-08-31] MEDS ORDERED: ACETAMINOPHEN 1000MG/100ML IV 100 ML IVPB PRN (12:30)
--- NOTE | 2018-08-31 13:51 | CONS ---
Assessment/Plan Assessment/Plan Hospital Course (Demo Recall) Patient continues to spike fevers with a T-max of 105.1 he is tachycardic in no distress WBC today 22.3 with platelets 226 neutrophils 92.6 BUN 26 creatinine 0.64 Blood cultures repeated on August 29 negative a culture of the tip of the PICC revealed no growth sputum culture growing gram-negative rods Antimicrobials: Flagyl Zyvox colistin and fluconazole Indwelling: Trach PEG [place] catheter Physical examination: This is a morbidly obese well-developed middle-aged man who is intubated sedated in no distress. Head atraumatic normocephalic, bucal mucosa dry, neck is obese. Chest rise symmetrical breath sounds diminished. Heart: S1-S2. Abdomen obese distended bowel sounds hypoactive. Extremities with edema Assessment: 1. Sepsis with ongoing fevers, status post PICC line removed ==> cx of tip neg 2. Acute hypoxemic respiratory failure/ pneumonia 3. Morbid obesity 4. Sleep apnea with hypoventilation syndrome Plan: Clinically unchanged, etiology of his fevers unclear, he is not a candidate for CT or WBC scan 2 to morbid obesity, continue abx DW RN Consultation Date/Type/Reason Admit Date/Time Aug 08, 2018 at 17:18 Initial Consult Date 08/09/18 Type of Consult ID Date/Time of Note DATE: 08/31/18 TIME: 13:45 Exam/Review of Systems Exam Vitals Vital Signs Date Temp Pulse Resp B/P (MAP) Pulse Ox O2 O2 Flow FiO2 Time Delivery Rate 08/31/18 103.8 125 13:31 08/31/18 8.0 13:15 08/31/18 28 130/73 95 Trach 12:42 (92) Collar 08/31/18 35 11:15 Intake and Output 08/30/18 08/30/18 08/31/18 1515:00 23:00 07:00 IntakeIntake Total 380 ml 30 ml 730 ml OutputOutput Total 1100 ml 330 ml 870 ml BalanceBalance -720 ml -300 ml -140 ml Results Result Diagram: 08/31/18 0447 08/31/18 0447 Results 24hrs Laboratory Tests Test 08/31/18 04:47 08/31/18 10:25 White Blood Count 22.3 H Red Blood Count 5.06 Hemoglobin 11.6 L Hematocrit 43.5 Mean Corpuscular Volume 86.0 Mean Corpuscular Hemoglobin 22.9 L Mean Corpuscular Hemoglobin Concent 26.7 L Red Cell Distribution Width 17.7 H Platelet Count 226 Mean Platelet Volume 10.1 Immature Granulocytes % 1.100 H Neutrophils % 92.6 H Lymphocytes % 3.3 L Monocytes % 2.7 Eosinophils % 0.0 Basophils % 0.3 Nucleated Red Blood Cells % 0.0 Immature Granulocytes # 0.240 H Neutrophils # 20.6 H Lymphocytes # 0.7 L Monocytes # 0.6 Eosinophils # 0.0 Basophils # 0.1 Nucleated Red Blood Cells # 0.0 Sodium Level 143 Potassium Level 3.7 Chloride Level 93 L Carbon Dioxide Level 39 H Anion Gap 11 Blood Urea Nitrogen 26 H Creatinine 0.64 Est Glomerular Filtrat Rate mL/min > 60 Glucose Level 176 Calcium Level 9.5 Phosphorus Level 1.9 #L Magnesium Level 1.7 Creatine Kinase 71 Medications Medication Current Medications IV Flush (NS 3 ml) 3 ml PER PROTOCOL IV ; Start 08/08/18 at 17:30 Ondansetron HCl (Zofran Inj) 4 mg Q6H PRN IV NAUSEA; Start 08/08/18 at 17:30 Haloperidol (Haldol) 5 mg PRN PRN IM AGGITATED Last administered on 08/16/18 08:32; Admin Dose 5 MG; Start 08/08/18 at 22:00 Propofol 100 ml @ 6.111 mls/ hr Q12H IV Last administered on 08/27/18 21:38; Admin Dose 24.444 MLS/HR; Start 08/09/18 at 05:30 Fentanyl 100 ml @ 2.5 mls/hr TITRATE IV Last administered on 08/28/18 00:37; Admin Dose 8 MLS/HR; Start 08/09/18 at 06:30 Enoxaparin Sodium (Lovenox) 40 mg Q12H SC Last administered on 08/31/18 09:04; Admin Dose 40 MG; Start 08/09/18 at 21:00 Famotidine (Pepcid) 20 mg BID GTB Last administered on 08/31/18 09:03; Admin Dose 20 MG; Start 08/12/18 at 09:00 Midazolam HCl 50 ml @ 1 mls/hr TITRATE IV Last administered on 08/25/18 11:49; Admin Dose 4 MLS/HR; Start 08/13/18 at 08:30 Naphazoline HCl (Clear Eyes / Naphcon) 2 drop QID BOTH EYES Last administered on 08/31/18 12:41; Admin Dose 2 DROP; Start 08/16/18 at 18:14 Acetaminophen (Tylenol Liquid) 650 mg Q6H PRN NGT MILD PAIN(1-3)OR ELEVATED TE MP Last administered on 08/31/18 07:02; Admin Dose 650 MG; Start 08/17/18 at 00:57 Fluconazole (Diflucan) 100 mg DAILY PO Last administered on 08/31/18 09:03; Admin Dose 100 MG; Start 08/23/18 at 15:00 Methylprednisolone Sodium Succinate (Solu-Medrol) 40 mg Q12 IV Last administered on 08/31/18 09:02; Admin Dose 40 MG; Start 08/25/18 at 21:00 Colistimethate Sodium 200 mg/ Sodium Chloride 100 ml @ 200 mls/hr Q12 IVPB Last administered on 08/31/18 09:03; Admin Dose 200 MLS/HR; Start 08/26/18 at 21:00 Levalbuterol (Xopenex Hfa) 4 puff Q4H RESP THERAPY PRN INH SHORTNESS OF BREATH Last administered on 08/27/18 05:08; Admin Dose 4 PUFF; Start 08/26/18 at 20:00 Ipratropium [place] (Atrovent Hfa) 2 puff QID RESP THERAPY PRN INH SHORTNESS OF BREATH Last administered on 08/27/18 05:08; Admin Dose 2 PUFF; Start 08/26/18 at 20:00 Metoclopramide HCl (Reglan) 5 mg BID IV Last administered on 08/31/18 09:02; Admin Dose 5 MG; Start 08/27/18 at 21:00 Quetiapine Fumarate (Seroquel) 100 mg BID GTB Last administered on 08/31/18 09:03; Admin Dose 100 MG; Start 08/27/18 at 21:00 Lorazepam (Ativan) 1 mg Q6H PRN IV AGITATION Last administered on 08/31/18 00:44; Admin Dose 1 MG; Start 08/28/18 at 02:30 Morphine Sulfate (morphine) 2 mg Q2H PRN IV SEVERE PAIN LEVEL 7-10 Last administered on 08/30/18 22:24; Admin Dose 2 MG; Start 08/28/18 at 09:00 Docusate Sodium (Colace Liquid Cup) 200 mg BID PRN NGT CONSTIPATION; Start 08/29/18 at 10:00 Polyethylene Glycol (Miralax) 17 gm DAILY PRN GTB CONSTIPATION; Start 08/29/18 at 10:00 Linezolid (Zyvox) 600 mg BID PO Last administered on 08/31/18 09:03; Admin Dose 600 MG; Start 08/29/18 at 13:00 Ibuprofen (Motrin) 600 mg Q6H PRN GTB MILD PAIN LEVEL 1-3 Last administered on 08/31/18 10:25; Admin Dose 600 MG; Start 08/29/18 at 15:30 Metronidazole (Flagyl) 500 mg Q8 NGT Last administered on 08/31/18 13:30; Admin Dose 500 MG; Start 08/30/18 at 14:00 Potassium Phosphate 40 meq/ Sodium Chloride 259.0909 ml @ 64.773 m... ONCE ONCE IVPB Last administered on 08/31/18 10:57; Admin Dose 64.773 MLS/HR; Start 08/31/18 at 11:30; Stop 08/31/18 at 15:29 Sodium Chloride 1,000 ml @ 100 mls/hr Q10H IV Last administered on 08/31/18 10:19; Admin Dose 100 MLS/HR; Start 08/31/18 at 10:30; Stop 08/31/18 at 22:00 Scopolamine (Transderm-Scop) 1 patch Q72H TRANSDERM Last administered on 08/31/18at 11:37; Admin Dose 1 PATCH; Start 08/31/18 at 11:30 Acetaminophen 100 ml @ 400 mls/hr Q6H PRN IVPB ELEVATED TEMPERATURE Last administered on 08/31/18 12:37; Admin Dose 400 MLS/HR; Start 08/31/18 at 12:30; Stop 09/01/18 at 12:29 JOCELYN VILLALTA NP Aug 31, 2018 13:50
[2018-08-31] MEDS: PROPOFOL 100 ML IV SCH ×2 (16:58→16:59)
[2018-09-01] VITALS (26 sets, daily range): BP systolic 100–160; BP diastolic 68–118; PULSE 86–118; RESP 15–30
[2018-09-01] MEDS: PROPOFOL 100 ML IV SCH (04:53)
[2018-09-01] MEDS: metroNIDAZOLE 500 MG TAB NGT SCH ×3 (05:46→21:32)
[2018-09-01] MEDS: NAPHAZOLINE 0.012% 15 ML OPH BOTH EYES SCH ×4 (09:25→21:07)
[2018-09-01] MEDS: METHYLPREDNISOLONE 40 MG INJ IV SCH (09:25)
[2018-09-01] MEDS: METOCLOPRAMIDE 10 MG INJ IV SCH ×2 (09:25→21:05)
[2018-09-01] MEDS: ZYVOX 600 MG TAB PO SCH ×2 (09:25→21:05)
[2018-09-01] MEDS: FAMOTIDINE 20 MG TAB GTB SCH ×2 (09:25→21:05)
[2018-09-01] MEDS: FLUCONAZOLE 100 MG TAB PO SCH (09:25)
[2018-09-01] MEDS: QUETIAPINE 100 MG TAB GTB SCH (09:25)
[2018-09-01] MEDS: COLISTIMETHATE 200 MG in SOD CHLORIDE 0.9% 100 ML IVPB SCH ×2 (09:53→21:05)
[2018-09-01] MEDS: ENOXAPARIN 40 MG/0.4 ML SYG SC SCH ×2 (09:56→21:13)
--- NOTE | 2018-09-01 10:45 | PN ---
Date/Time of Note Date/Time of Note DATE: 09/01/18 TIME: 10:39 Assessment/Plan VTE Prophylaxis Risk score (from Ns)>0 risk: 5 SCD applied (from Ns): No SCD contraindicated: other Pharmacological prophylaxis: LMWH Lines/Catheters [facility] ([facility] Peripheral IV Urinary Cath still in place: Yes Reason Cath still needed: urinary retention Assessment/Plan Hospital Course S: Pt with less fevers since yesterday, still with secretions requiring suctioning, started scopolamine patch yesterday; still with loose stools. Still with some tachycardia today. O: VS - see below PE: Gen: Morbidly obese man lying in bed, opens eyes Neck: Obese, trach, no lymphadenopathy appreciated HEENT: Clear oropharynx, moist mucous membranes Card: Sinus tach, distant heart sounds Pulm: distant lung sounds. Abd: Morbidly obese, soft, nontender, G-tube in place Ext: Bilateral LE chronic venous stasis changes. Neuro: No focal deficits Assessment/Plan: 32M morbidly obese presents with hypercapnic respiratory failure and pneumonia. #Hypoxic and hypercapnic respiratory failure - Likely from obesity (ANDREW), exacerbated by pneumonia - Intubated 08/09, then Trach 08/24- PEG placed 08/23- Since tracheostomy patient has had copious white secretions, As of 08/27 he's off vent, on trach collar with cool aerosol O2 supplementation, still with significant fevers and now with increasing tachycardia -Continue suctioning, current antibiotics, O2 via cool aerosol -Continue breathing treatments as needed, follow pulmonary recommendations, continue steroids -Follow-up ID recommendations, apparently the tip sent for culture has negative growth thus far -Also now on p.o. Flagyl (given loose stools although C. difficile test was negative) # Pneumonia- Bilateral patchy infiltrates on CXR,WBC 16 on admission- on broad-spectrum antibiotics for MDR actinobacter PNA, and from August 26 blood culture bottle shows positive staph as well. - Monitor, continue current antibiotics, follow up pulmonary and follow-up ID recommendations. DVT: lovenox GI: Protonix IV Critical care time spent in patient care today equals 45 minutes. Result Diagram: 09/01/18 0537 09/01/18 0537 Results 24hrs Laboratory Tests Test 08/31/18 21:36 09/01/18 05:37 Blood Gas Specimen Source Blood arterial Arterial Blood Date Drawn 08/31/2018 9:38:43 PM Arterial Blood pH (Temp corrected) 7.364 Arterial Blood pCO2 (Temp correct) 65.1 H Arterial Blood pO2 (Temp corrected) 72.5 L Arterial Blood HCO3 36.3 H Arterial Blood Base Excess 8.7 H Arterial Blood Oxygen Saturation 93.2 L James Test ACCEPTAB Arterial Blood Gas Puncture Site Right Radial Arterial Blood Carboxyhemoglobin 1.3 Arterial Blood Methemoglobin 0.3 Blood Gas A-a O2 Differential 101.4 H Oxyhemoglobin Percent 91.7 L Blood Gas Temperature 37.0 Blood Gas Actual Respiration Rate 18 Blood Gas Modality TRACH COLLAR FiO2 35.0 Blood Gas Notified Whom Jerry ZAVALA [facility] Blood Gas Notified Time 08/31/2018 9:45:27 PM White Blood Count 15.4 #H Red Blood Count 4.87 Hemoglobin 11.3 L Hematocrit 41.9 L Mean Corpuscular Volume 86.0 Mean Corpuscular Hemoglobin 23.2 L Mean Corpuscular Hemoglobin Concent 27.0 L Red Cell Distribution Width 18.0 H Platelet Count 127 #L Mean Platelet Volume 11.3 H Immature Granulocytes % 0.800 H Neutrophils % Lymphocytes % Monocytes % Eosinophils % Basophils % Nucleated Red Blood Cells % 0.0 Immature Granulocytes # 0.120 H Neutrophils # Lymphocytes # Monocytes # Eosinophils # Basophils # Nucleated Red Blood Cells # Sodium Level 140 Potassium Level 3.2 L Chloride Level 97 Carbon Dioxide Level 34 H Anion Gap 9 Blood Urea Nitrogen 43 #H Creatinine 0.98 Est Glomerular Filtrat Rate mL/min > 60 Glucose Level 186 Calcium Level 10.0 Exam/Review of Systems Exam Vitals Vital Signs Date Temp Pulse Resp B/P (MAP) Pulse Ox O2 O2 Flow FiO2 Time Delivery Rate 09/01/18 111 20 110/89 97 Trach 5.0 10:00 (96) Collar 09/01/18 97.7 08:00 09/01/18 28 07:41 Intake and Output 08/31/18 08/31/18 09/01/18 1515:00 23:00 07:00 IntakeIntake Total 789.0909 ml 1060 ml 570 ml OutputOutput Total 972 ml 350 ml 750 ml BalanceBalance -182.9091 ml 710 ml -180 ml Results Results 24hrs Laboratory Tests Test 08/31/18 21:36 09/01/18 05:37 Blood Gas Specimen Source Blood arterial Arterial Blood Date Drawn 08/31/2018 9:38:43 PM Arterial Blood pH (Temp corrected) 7.364 Arterial Blood pCO2 (Temp correct) 65.1 H Arterial Blood pO2 (Temp corrected) 72.5 L Arterial Blood HCO3 36.3 H Arterial Blood Base Excess 8.7 H Arterial Blood Oxygen Saturation 93.2 L James Test ACCEPTAB Arterial Blood Gas Puncture Site Right Radial Arterial Blood Carboxyhemoglobin 1.3 Arterial Blood Methemoglobin 0.3 Blood Gas A-a O2 Differential 101.4 H Oxyhemoglobin Percent 91.7 L Blood Gas Temperature 37.0 Blood Gas Actual Respiration Rate 18 Blood Gas Modality TRACH COLLAR FiO2 35.0 Blood Gas Notified Whom Jerry ZAVALA [facility] Blood Gas Notified Time 08/31/2018 9:45:27 PM White Blood Count 15.4 #H Red Blood Count 4.87 Hemoglobin 11.3 L Hematocrit 41.9 L Mean Corpuscular Volume 86.0 Mean Corpuscular Hemoglobin 23.2 L Mean Corpuscular Hemoglobin Concent 27.0 L Red Cell Distribution Width 18.0 H Platelet Count 127 #L Mean Platelet Volume 11.3 H Immature Granulocytes % 0.800 H Neutrophils % Lymphocytes % Monocytes % Eosinophils % Basophils % Nucleated Red Blood Cells % 0.0 Immature Granulocytes # 0.120 H Neutrophils # Lymphocytes # Monocytes # Eosinophils # Basophils # Nucleated Red Blood Cells # Sodium Level 140 Potassium Level 3.2 L Chloride Level 97 Carbon Dioxide Level 34 H Anion Gap 9 Blood Urea Nitrogen 43 #H Creatinine 0.98 Est Glomerular Filtrat Rate mL/min > 60 Glucose Level 186 Calcium Level 10.0 Medications Medication Current Medications IV Flush (NS 3 ml) 3 ml PER PROTOCOL IV ; Start 08/08/18 at 17:30 Ondansetron HCl (Zofran Inj) 4 mg Q6H PRN IV NAUSEA; Start 08/08/18 at 17:30 Haloperidol (Haldol) 5 mg PRN PRN IM AGGITATED Last administered on 08/16/18at 08:32; Admin Dose 5 MG; Start 08/08/18 at 22:00 Propofol 100 ml @ 6.111 mls/ hr Q12H IV Last administered on 08/27/18at 21:38; Admin Dose 24.444 MLS/HR; Start 08/09/18 at 05:30 Fentanyl 100 ml @ 2.5 mls/hr TITRATE IV Last administered on 08/28/18 00:37; Admin Dose 8 MLS/HR; Start 08/09/18 at 06:30 Enoxaparin Sodium (Lovenox) 40 mg Q12H SC Last administered on 09/01/18 09:56; Admin Dose 40 MG; Start 08/09/18 at 21:00 Famotidine (Pepcid) 20 mg BID GTB Last administered on 09/01/18 09:25; Admin Dose 20 MG; Start 08/12/18 at 09:00 Midazolam HCl 50 ml @ 1 mls/hr TITRATE IV Last administered on 08/25/18 11:49; Admin Dose 4 MLS/HR; Start 08/13/18 at 08:30 Naphazoline HCl (Clear Eyes / Naphcon) 2 drop QID BOTH EYES Last administered on 09/01/18 09:25; Admin Dose 2 DROP; Start 08/16/18 at 18:14 Acetaminophen (Tylenol Liquid) 650 mg Q6H PRN NGT MILD PAIN(1-3)OR ELEVATED TEMP Last administered on 08/31/18 07:02; Admin Dose 650 MG; Start 08/17/18 at 00:57 Fluconazole (Diflucan) 100 mg DAILY PO Last administered on 09/01/18 09:25; Admin Dose 100 MG; Start 08/23/18 at 15:00 Methylprednisolone Sodium Succinate (Solu-Medrol) 40 mg Q12 IV Last administered on 09/01/18 09:25; Admin Dose 40 MG; Start 08/25/18 at 21:00 Colistimethate Sodium 200 mg/ Sodium Chloride 100 ml @ 200 mls/hr Q12 IVPB Last administered on 09/01/18 09:53; Admin Dose 200 MLS/HR; Start 08/26/18 at 21:00 Levalbuterol (Xopenex Hfa) 4 puff Q4H RESP THERAPY PRN INH SHORTNESS OF BREATH Last administered on 08/27/18 05:08; Admin Dose 4 PUFF; Start 08/26/18 at 20:00 Ipratropium [place] (Atrovent Hfa) 2 puff QID RESP THERAPY PRN INH SHORTNESS OF BREATH Last administered on 08/27/18 05:08; Admin Dose 2 PUFF; Start 08/26/18 at 20:00 Metoclopramide HCl (Reglan) 5 mg BID IV Last administered on 09/01/18 09:25; Admin Dose 5 MG; Start 08/27/18 at 21:00 Quetiapine Fumarate (Seroquel) 100 mg BID GTB Last administered on 09/01/18 09:25; Admin Dose 100 MG; Start 08/27/18 at 21:00 Lorazepam (Ativan) 1 mg Q6H PRN IV AGITATION Last administered on 08/31/18 00:44; Admin Dose 1 MG; Start 08/28/18 at 02:30 Morphine Sulfate (morphine) 2 mg Q2H PRN IV SEVERE PAIN LEVEL 7-10 Last administered on 08/30/18 22:24; Admin Dose 2 MG; Start 08/28/18 at 09:00 Docusate Sodium (Colace Liquid Cup) 200 mg BID PRN NGT CONSTIPATION; Start 08/29/18 at 10:00 Polyethylene Glycol (Miralax) 17 gm DAILY PRN GTB CONSTIPATION; Start 08/29/18 at 10:00 Linezolid (Zyvox) 600 mg BID PO Last administered on 09/01/18 09:25; Admin Dose 600 MG; Start 08/29/18 at 13:00 Ibuprofen (Motrin) 600 mg Q6H PRN GTB MILD PAIN LEVEL 1-3 Last administered on 08/31/18 10:25; Admin Dose 600 MG; Start 08/29/18 at 15:30 Metronidazole (Flagyl) 500 mg Q8 NGT Last administered on 09/01/18 05:46; Admin Dose 500 MG; Start 08/30/18 at 14:00 Scopolamine (Transderm-Scop) 1 patch Q72H TRANSDERM Last administered on 08/31/18 11:37; Admin Dose 1 PATCH; Start 08/31/18 at 11:30 Acetaminophen 100 ml @ 400 mls/hr Q6H PRN IVPB ELEVATED TEMPERATURE Last administered on 08/31/18 12:37; Admin Dose 400 MLS/HR; Start 08/31/18 at 12:30; Stop 09/01/18 at 12:29 RC GO Sep 01, 2018 10:45
--- NOTE | 2018-09-01 11:12 | CONS ---
Consult Date/Type/Reason Admit Date/Time Aug 08, 2018 at 17:18 Initial Consult Date 08/09/18 Type of Consult Pulmonary Date/Time of Note DATE: 09/01/18 TIME: 11:11 Subjective Remains febrile, confused, still with diarrhea. Objective Vital Signs Date Temp Pulse Resp B/P (MAP) Pulse Ox O2 O2 Flow FiO2 Time Delivery Rate 09/01/18 94 5.0 28 10:35 09/01/18 113 18 Aerosol 10:35 T Tube 09/01/18 110/89 10:00 (96) 09/01/18 97.7 08:00 Intake and Output 08/31/18 08/31/18 09/01/18 1515:00 23:00 07:00 IntakeIntake Total 789.0909 ml 1060 ml 570 ml OutputOutput Total 972 ml 350 ml 750 ml BalanceBalance -182.9091 ml 710 ml -180 ml Exam GENERAL: Obese young gentleman tracheostomy on cool aerosol VITAL SIGNS: per chart NECK: Supple. No JVD or lymphadenopathy. CARDIAC EXAM: S1, S2. No added sounds or murmurs. CHEST: clear bilaterally, No added sounds, rales or wheezes ABDOMEN: Soft, nontender. No guarding or rebound. EXTREMITIES: No cyanosis, clubbing, edema +2 NEUROLOGIC: Generalized weakness. No focal deficits. Vent Setting Ventilator Support Mode: CPAP, PS Fraction of Inspired Oxygen pe: 28 Positive End Expiratory Pressu: 8.0 Results/Medications Result Diagram: 09/01/18 0537 09/01/18 0537 Results 24 hrs Laboratory Tests Test 08/31/18 21:36 09/01/18 05:37 Blood Gas Specimen Source Blood arterial Arterial Blood Date Drawn 08/31/2018 9:38:43 PM Arterial Blood pH (Temp corrected) 7.364 Arterial Blood pCO2 (Temp correct) 65.1 H Arterial Blood pO2 (Temp corrected) 72.5 L Arterial Blood HCO3 36.3 H Arterial Blood Base Excess 8.7 H Arterial Blood Oxygen Saturation 93.2 L James Test ACCEPTAB Arterial Blood Gas Puncture Site Right Radial Arterial Blood Carboxyhemoglobin 1.3 Arterial Blood Methemoglobin 0.3 Blood Gas A-a O2 Differential 101.4 H Oxyhemoglobin Percent 91.7 L Blood Gas Temperature 37.0 Blood Gas Actual Respiration Rate 18 Blood Gas Modality TRACH COLLAR FiO2 35.0 Blood Gas Notified Whom D [facility] Blood Gas Notified Time 08/31/2018 9:45:27 PM White Blood Count 15.4 #H Red Blood Count 4.87 Hemoglobin 11.3 L Hematocrit 41.9 L Mean Corpuscular Volume 86.0 Mean Corpuscular Hemoglobin 23.2 L Mean Corpuscular Hemoglobin Concent 27.0 L Red Cell Distribution Width 18.0 H Platelet Count 127 #L Mean Platelet Volume 11.3 H Immature Granulocytes % 0.800 H Neutrophils % Segmented Neutrophils % (Manual) 82 H Band Neutrophils % (Manual) 13 H Lymphocytes % Lymphocytes % (Manual) 1 L Monocytes % Monocytes % (Manual) 4 Eosinophils % Basophils % Nucleated Red Blood Cells % 0.0 Immature Granulocytes # 0.120 H Neutrophils # Neutrophils # (Manual) 12.9 H Band Neutrophils # 2.0 H Lymphocytes (Manual) 0.1 L Lymphocytes # Monocytes # Monocytes # (Manual) 0.6 Eosinophils # Basophils # Nucleated Red Blood Cells # Platelet Estimate DECREASED Giant Platelets 2 H Polychromasia 3+ Hypochromasia 2+ Poikilocytosis 1+ Anisocytosis 1+ Microcytosis 1+ Sodium Level 140 Potassium Level 3.2 L Chloride Level 97 Carbon Dioxide Level 34 H Anion Gap 9 Blood Urea Nitrogen 43 #H Creatinine 0.98 Est Glomerular Filtrat Rate mL/min > 60 Glucose Level 186 Calcium Level 10.0 Phosphorus Level 4.5 # Magnesium Level 1.9 Medications Current Medications IV Flush (NS 3 ml) 3 ml PER PROTOCOL IV ; Start 08/08/18 at 17:30 Ondansetron HCl (Zofran Inj) 4 mg Q6H PRN IV NAUSEA; Start 08/08/18 at 17:30 Haloperidol (Haldol) 5 mg PRN PRN IM AGGITATED Last administered on 08/16/18at 08:32; Admin Dose 5 MG; Start 08/08/18 at 22:00 Propofol 100 ml @ 6.111 mls/ hr Q12H IV Last administered on 08/27/18at 21:38; Admin Dose 24.444 MLS/HR; Start 08/09/18 at 05:30 Fentanyl 100 ml @ 2.5 mls/hr TITRATE IV Last administered on 08/28/18at 00:37; Admin Dose 8 MLS/HR; Start 08/09/18 at 06:30 Enoxaparin Sodium (Lovenox) 40 mg Q12H SC Last administered on 09/01/18 09:56; Admin Dose 40 MG; Start 08/09/18 at 21:00 Famotidine (Pepcid) 20 mg BID GTB Last administered on 09/01/18 09:25; Admin Dose 20 MG; Start 08/12/18 at 09:00 Midazolam HCl 50 ml @ 1 mls/hr TITRATE IV Last administered on 08/25/18 11:49; Admin Dose 4 MLS/HR; Start 08/13/18 at 08:30 Naphazoline HCl (Clear Eyes / Naphcon) 2 drop QID BOTH EYES Last administered on 09/01/18 09:25; Admin Dose 2 DROP; Start 08/16/18 at 18:14 Acetaminophen (Tylenol Liquid) 650 mg Q6H PRN NGT MILD PAIN(1-3)OR ELEVATED TEMP Last administered on 08/31/18 07:02; Admin Dose 650 MG; Start 08/17/18 at 00:57 Fluconazole (Diflucan) 100 mg DAILY PO Last administered on 09/01/18 09:25; Admin Dose 100 MG; Start 08/23/18 at 15:00 Methylprednisolone Sodium Succinate (Solu-Medrol) 40 mg Q12 IV Last administered on 09/01/18 09:25; Admin Dose 40 MG; Start 08/25/18 at 21:00 Colistimethate Sodium 200 mg/ Sodium Chloride 100 ml @ 200 mls/hr Q12 IVPB Last administered on 09/01/18 09:53; Admin Dose 200 MLS/HR; Start 08/26/18 at 21:00 Levalbuterol (Xopenex Hfa) 4 puff Q4H RESP THERAPY PRN INH SHORTNESS OF BREATH Last administered on 08/27/18 05:08; Admin Dose 4 PUFF; Start 08/26/18 at 20:00 Ipratropium [place] (Atrovent Hfa) 2 puff QID RESP THERAPY PRN INH SHORTNESS OF BREATH Last administered on 08/27/18 05:08; Admin Dose 2 PUFF; Start 08/26/18 at 20:00 Metoclopramide HCl (Reglan) 5 mg BID IV Last administered on 09/01/18 09:25; Admin Dose 5 MG; Start 08/27/18 at 21:00 Quetiapine Fumarate (Seroquel) 100 mg BID GTB Last administered on 09/01/18 09:25; Admin Dose 100 MG; Start 08/27/18 at 21:00 Lorazepam (Ativan) 1 mg Q6H PRN IV AGITATION Last administered on 08/31/18at 00:44; Admin Dose 1 MG; Start 08/28/18 at 02:30 Morphine Sulfate (morphine) 2 mg Q2H PRN IV SEVERE PAIN LEVEL 7-10 Last administered on 08/30/18at 22:24; Admin Dose 2 MG; Start 08/28/18 at 09:00 Docusate Sodium (Colace Liquid Cup) 200 mg BID PRN NGT CONSTIPATION; Start 08/29/18 at 10:00 Polyethylene Glycol (Miralax) 17 gm DAILY PRN GTB CONSTIPATION; Start 08/29/18 at 10:00 Linezolid (Zyvox) 600 mg BID PO Last administered on 09/01/18 09:25; Admin Dose 600 MG; Start 08/29/18 at 13:00 Ibuprofen (Motrin) 600 mg Q6H PRN GTB MILD PAIN LEVEL 1-3 Last administered on 08/31/18at 10:25; Admin Dose 600 MG; Start 08/29/18 at 15:30 Metronidazole (Flagyl) 500 mg Q8 NGT Last administered on 09/01/18at 05:46; Admin Dose 500 MG; Start 08/30/18 at 14:00 Scopolamine (Transderm-Scop) 1 patch Q72H TRANSDERM Last administered on 08/31/18at 11:37; Admin Dose 1 PATCH; Start 08/31/18 at 11:30 Acetaminophen 100 ml @ 400 mls/hr Q6H PRN IVPB ELEVATED TEMPERATURE Last administered on 08/31/18at 12:37; Admin Dose 400 MLS/HR; Start 08/31/18 at 12:30; Stop 09/01/18 at 12:29 Assessment/Plan Hospital Course (Demo Recall) IMP: 1. Acute on chronic hypoxemic and hypercapnic respiratory failure, failed multiple weaning trials status post tracheostomy 2. Component of diastolic dysfunction 3. History of obesity hypoventilation syndrome and probable obstructive sleep apnea 4. Leukocytosis With ongoing fevers source unclear possible C. difficile colitis RECS: 1. Continue trach collar as tolerated 2. Follow-up sputum/trach aspirate GS/Cx 3. F/U Stool C.Diff consider empiric vancomycin for C. difficile, continue ID [place] 4. Consider DC Seroquel questionable NMS, check creatinine kinase. 5. TF as tolerated 40 min cc time Keep in ICU. JULIETH PUENTE MD, [facility] Sep 01, 2018 11:12
[2018-09-01] MEDS: POTASSIUM CHLORIDE 100 ML IVPB SCH ×2 (12:32→16:08)
--- NOTE | 2018-09-01 13:00 | CONS ---
Assessment/Plan Assessment/Plan Hospital Course (Demo Recall) Patient is awake looks comfortable no fevers currently on cooling measures. WBC today 15.4 with platelets 127 pounds 13 BUN 43 creatinine 0.98 Blood cultures repeated on August 29 negative a culture of the tip of the PICC revealed no growth sputum culture growing gram-negative rods Antimicrobials: Flagyl Zyvox colistin and fluconazole Indwelling: Trach PEG Santiago catheter Chest x-ray revealed worsening patchy bilateral upper lobe and lower lobe infiltrates Physical examination: This is a morbidly obese well-developed middle-aged man who is intubated sedated in no distress. Head atraumatic normocephalic, bucal mucosa dry, neck is obese. Chest rise symmetrical breath sounds diminished. Heart: S1-S2. Abdomen obese distended bowel sounds hypoactive. Extremities with edema Assessment: 1. Sepsis with ongoing fevers, status post PICC line removed ==> cx of tip neg 2. Acute hypoxemic respiratory failure/ pneumonia 3. Morbid obesity 4. Sleep apnea with hypoventilation syndrome Plan: Clinically unchanged, overall stable, not a candidate for CT or WBC scan secondary to obesity, continue on current antibiotics, follow pulmonary recommendations DEBORAH RN Consultation Date/Type/Reason Admit Date/Time Aug 08, 2018 at 17:18 Initial Consult Date 08/09/18 Type of Consult ID Date/Time of Note DATE: 09/01/18 TIME: 12:59 Exam/Review of Systems Exam Vitals Vital Signs Date Temp Pulse Resp B/P (MAP) Pulse Ox O2 O2 Flow FiO2 Time Delivery Rate 09/01/18 94 5.0 28 10:35 09/01/18 113 18 Aerosol 10:35 T Tube 09/01/18 110/89 10:00 (96) 09/01/18 97.7 08:00 Intake and Output 08/31/18 08/31/18 09/01/18 1515:00 23:00 07:00 IntakeIntake Total 789.0909 ml 1060 ml 570 ml OutputOutput Total 972 ml 350 ml 750 ml BalanceBalance -182.9091 ml 710 ml -180 ml Results Result Diagram: 09/01/18 0537 09/01/18 0537 Results 24hrs Laboratory Tests Test 08/31/18 21:36 09/01/18 05:37 Blood Gas Specimen Source Blood arterial Arterial Blood Date Drawn 08/31/2018 9:38:43 PM Arterial Blood pH (Temp corrected) 7.364 Arterial Blood pCO2 (Temp correct) 65.1 H Arterial Blood pO2 (Temp corrected) 72.5 L Arterial Blood HCO3 36.3 H Arterial Blood Base Excess 8.7 H Arterial Blood Oxygen Saturation 93.2 L James Test ACCEPTAB Arterial Blood Gas Puncture Site Right Radial Arterial Blood Carboxyhemoglobin 1.3 Arterial Blood Methemoglobin 0.3 Blood Gas A-a O2 Differential 101.4 H Oxyhemoglobin Percent 91.7 L Blood Gas Temperature 37.0 Blood Gas Actual Respiration Rate 18 Blood Gas Modality TRACH COLLAR FiO2 35.0 Blood Gas Notified Whom Jerry [employer] Blood Gas Notified Time 08/31/2018 9:45:27 PM White Blood Count 15.4 #H Red Blood Count 4.87 Hemoglobin 11.3 L Hematocrit 41.9 L Mean Corpuscular Volume 86.0 Mean Corpuscular Hemoglobin 23.2 L Mean Corpuscular Hemoglobin Concent 27.0 L Red Cell Distribution Width 18.0 H Platelet Count 127 #L Mean Platelet Volume 11.3 H Immature Granulocytes % 0.800 H Neutrophils % Segmented Neutrophils % (Manual) 82 H Band Neutrophils % (Manual) 13 H Lymphocytes % Lymphocytes % (Manual) 1 L Monocytes % Monocytes % (Manual) 4 Eosinophils % Basophils % Nucleated Red Blood Cells % 0.0 Immature Granulocytes # 0.120 H Neutrophils # Neutrophils # (Manual) 12.9 H Band Neutrophils # 2.0 H Lymphocytes (Manual) 0.1 L Lymphocytes # Monocytes # Monocytes # (Manual) 0.6 Eosinophils # Basophils # Nucleated Red Blood Cells # Platelet Estimate DECREASED Giant Platelets 2 H Polychromasia 3+ Hypochromasia 2+ Poikilocytosis 1+ Anisocytosis 1+ Microcytosis 1+ Sodium Level 140 Potassium Level 3.2 L Chloride Level 97 Carbon Dioxide Level 34 H Anion Gap 9 Blood Urea Nitrogen 43 #H Creatinine 0.98 Est Glomerular Filtrat Rate mL/min > 60 Glucose Level 186 Calcium Level 10.0 Phosphorus Level 4.5 # Magnesium Level 1.9 Medications Medication Current Medications IV Flush (NS 3 ml) 3 ml PER PROTOCOL IV ; Start 08/08/18 at 17:30 Ondansetron HCl (Zofran Inj) 4 mg Q6H PRN IV NAUSEA; Start 08/08/18 at 17:30 Haloperidol (Haldol) 5 mg PRN PRN IM AGGITATED Last administered on 08/16/18 08:32; Admin Dose 5 MG; Start 08/08/18 at 22:00 Propofol 100 ml @ 6.111 mls/ hr Q12H IV Last administered on 08/27/18 21:38; Admin Dose 24.444 MLS/HR; Start 08/09/18 at 05:30 Fentanyl 100 ml @ 2.5 mls/hr TITRATE IV Last administered on 08/28/18 00:37; Admin Dose 8 MLS/HR; Start 08/09/18 at 06:30 Enoxaparin Sodium (Lovenox) 40 mg Q12H SC Last administered on 09/01/18 09:56; Admin Dose 40 MG; Start 08/09/18 at 21:00 Famotidine (Pepcid) 20 mg BID GTB Last administered on 09/01/18 09:25; Admin Dose 20 MG; Start 08/12/18 at 09:00 Midazolam HCl 50 ml @ 1 mls/hr TITRATE IV Last administered on 08/25/18 11:49; Admin Dose 4 MLS/HR; Start 08/13/18 at 08:30 Naphazoline HCl (Clear Eyes / Naphcon) 2 drop QID BOTH EYES Last administered on 09/01/18 09:25; Admin Dose 2 DROP; Start 08/16/18 at 18:14 Acetaminophen (Tylenol Liquid) 650 mg Q6H PRN NGT MILD PAIN(1-3)OR ELEVATED T EMP Last administered on 08/31/18 07:02; Admin Dose 650 MG; Start 08/17/18 at 00:57 Fluconazole (Diflucan) 100 mg DAILY PO Last administered on 09/01/18 09:25; Admin Dose 100 MG; Start 08/23/18 at 15:00 Colistimethate Sodium 200 mg/ Sodium Chloride 100 ml @ 200 mls/hr Q12 IVPB Last administered on 09/01/18 09:53; Admin Dose 200 MLS/HR; Start 08/26/18 at 21:00 Levalbuterol (Xopenex Hfa) 4 puff Q4H RESP THERAPY PRN INH SHORTNESS OF BREATH Last administered on 08/27/18 05:08; Admin Dose 4 PUFF; Start 08/26/18 at 20:00 Ipratropium [place] (Atrovent Hfa) 2 puff QID RESP THERAPY PRN INH SHORTNESS OF BREATH Last administered on 08/27/18 05:08; Admin Dose 2 PUFF; Start 08/26/18 at 20:00 Metoclopramide HCl (Reglan) 5 mg BID IV Last administered on 09/01/18 09:25; Admin Dose 5 MG; Start 08/27/18 at 21:00 Quetiapine Fumarate (Seroquel) 100 mg BID GTB Last administered on 09/01/18 09:25; Admin Dose 100 MG; Start 08/27/18 at 21:00 Lorazepam (Ativan) 1 mg Q6H PRN IV AGITATION Last administered on 08/31/18at 00:44; Admin Dose 1 MG; Start 08/28/18 at 02:30 Morphine Sulfate (morphine) 2 mg Q2H PRN IV SEVERE PAIN LEVEL 7-10 Last administered on 08/30/18 22:24; Admin Dose 2 MG; Start 08/28/18 at 09:00 Docusate Sodium (Colace Liquid Cup) 200 mg BID PRN NGT CONSTIPATION; Start 08/29/18 at 10:00 Polyethylene Glycol (Miralax) 17 gm DAILY PRN GTB CONSTIPATION; Start 08/29/18 at 10:00 Linezolid (Zyvox) 600 mg BID PO Last administered on 09/01/18 09:25; Admin Dose 600 MG; Start 08/29/18 at 13:00 Ibuprofen (Motrin) 600 mg Q6H PRN GTB MILD PAIN LEVEL 1-3 Last administered on 08/31/18 10:25; Admin Dose 600 MG; Start 08/29/18 at 15:30 Metronidazole (Flagyl) 500 mg Q8 NGT Last administered on 09/01/18 05:46; Admin Dose 500 MG; Start 08/30/18 at 14:00 Scopolamine (Transderm-Scop) 1 patch Q72H TRANSDERM Last administered on 08/31/18at 11:37; Admin Dose 1 PATCH; Start 08/31/18 at 11:30 Methylprednisolone Sodium Succinate (Solu-Medrol) 40 mg DAILY IV ; Start 09/02/18 at 09:00 Furosemide (Lasix) 40 mg DAILY@0600 IV ; Start 09/01/18 at 11:30 Potassium Chloride 100 ml @ 50 mls/hr Q2H IVPB Last administered on 09/01/18at 12:32; Admin Dose 50 MLS/HR; Start 09/01/18 at 12:00; Stop 09/01/18 at 15:59 JOCELYN VILLALTA NP Sep 01, 2018 13:00
--- NOTE | 2018-09-01 18:17 | PN ---
Date/Time of Note Date/Time of Note DATE: 09/01/18 TIME: 18:17 Assessment/Plan Lines/Catheters IV Catheter Type (from Nrsg): Peripheral IV Santiago in Place (from Nrsg): Yes Assessment/Plan Assessment/Plan Status post tracheostomy Tracheostomy site clean no signs of bleeding Continue vent support Tracheostomy care Pulmonary toilet Subjective 24 Hr Interval Summary Constitutional: improved Pain Control: mild Exam/Review of Systems Vital Signs Vitals Vital Signs Date Temp Pulse Resp B/P (MAP) Pulse Ox O2 O2 Flow FiO2 Time Delivery Rate 09/01/18 96 5.0 28 17:13 09/01/18 104 20 Aerosol 17:13 T Tube 09/01/18 98.3 124/75 16:00 (91) Intake and Output 08/31/18 08/31/18 09/01/18 1515:00 23:00 07:00 IntakeIntake Total 789.0909 ml 1060 ml 600 ml OutputOutput Total 972 ml 350 ml 800 ml BalanceBalance -182.9091 ml 710 ml -200 ml Exam Eyes: nl conjunctiva, EOMI, nl lids, nl sclera ENMT: nl external ears & nose, nl lips & teeth, nl nasal mucosa & septum, mucosa pink and moist Neck: supple, non-tender Respiratory: clear to auscultation, normal air movement Cardiovascular: regular rate and rhythm, nl pulses Gastrointestinal: soft, nl liver, spleen, non-tender Extremities: normal pulses Results Result Diagram: 09/01/18 0537 09/01/18 0537 TIMMY DALAL MD Sep 01, 2018 18:17
[2018-09-01] MEDS: FUROSEMIDE 40 MG INJ IV SCH (18:28)
[2018-09-02] VITALS (24 sets, daily range): BP systolic 97–144; BP diastolic 53–111; PULSE 106–143; RESP 12–40
[2018-09-02] MEDS: metroNIDAZOLE 500 MG TAB NGT SCH ×3 (05:32→21:12)
[2018-09-02] MEDS: FUROSEMIDE 40 MG INJ IV SCH (05:32)
[2018-09-02] MEDS: METHYLPREDNISOLONE 40 MG INJ IV SCH (09:13)
[2018-09-02] MEDS: NAPHAZOLINE 0.012% 15 ML OPH BOTH EYES SCH ×4 (09:14→21:11)
[2018-09-02] MEDS: ZYVOX 600 MG TAB PO SCH ×2 (09:14→21:12)
[2018-09-02] MEDS: METOCLOPRAMIDE 10 MG INJ IV SCH ×2 (09:14→21:11)
[2018-09-02] MEDS: FAMOTIDINE 20 MG TAB GTB SCH ×2 (09:14→21:11)
[2018-09-02] MEDS: FLUCONAZOLE 100 MG TAB PO SCH (09:14)
[2018-09-02] MEDS: QUETIAPINE 100 MG TAB GTB SCH (09:14)
[2018-09-02] MEDS: COLISTIMETHATE 200 MG in SOD CHLORIDE 0.9% 100 ML IVPB SCH ×2 (09:19→21:22)
[2018-09-02] MEDS: ENOXAPARIN 40 MG/0.4 ML SYG SC SCH ×2 (09:38→21:13)
--- NOTE | 2018-09-02 10:10 | CONS ---
Consult Date/Type/Reason Admit Date/Time Aug 08, 2018 at 17:18 Initial Consult Date 08/09/18 Type of Consult Pulmonary Date/Time of Note DATE: 09/02/18 TIME: 10:08 Subjective Patient more alert this morning less shortness of breath. Still has moderate secretions. Still with diarrhea however afebrile this morning. Objective Vital Signs Date Temp Pulse Resp B/P (MAP) Pulse Ox O2 O2 Flow FiO2 Time Delivery Rate 09/02/18 113 23 07:00 09/02/18 Trach 5.0 06:00 Collar 09/02/18 99 28 05:33 09/02/18 98.4 04:00 Intake and Output 09/01/18 09/01/18 09/02/18 1515:00 23:00 07:00 IntakeIntake Total 640 ml 640 ml 680 ml OutputOutput Total 400 ml 410 ml 380 ml BalanceBalance 240 ml 230 ml 300 ml Exam GENERAL: Obese young gentleman tracheostomy on cool aerosol VITAL SIGNS: per chart NECK: Supple. No JVD or lymphadenopathy. CARDIAC EXAM: S1, S2. No added sounds or murmurs. CHEST: clear bilaterally, No added sounds, rales or wheezes ABDOMEN: Soft, nontender. No guarding or rebound. EXTREMITIES: No cyanosis, clubbing, edema +2 NEUROLOGIC: Generalized weakness. No focal deficits. Vent Setting Ventilator Support Mode: CPAP, PS Fraction of Inspired Oxygen pe: 28 Positive End Expiratory Pressu: 8.0 Results/Medications Result Diagram: 09/02/18 0537 09/02/18 0537 Results 24 hrs Laboratory Tests Test 09/02/18 05:37 White Blood Count 19.8 #H Red Blood Count 5.03 Hemoglobin 11.6 L Hematocrit 42.6 Mean Corpuscular Volume 84.7 Mean Corpuscular Hemoglobin 23.1 L Mean Corpuscular Hemoglobin Concent 27.2 L Red Cell Distribution Width 18.9 H Platelet Count 187 # Mean Platelet Volume 11.4 H Immature Granulocytes % 1.100 H Neutrophils % Segmented Neutrophils % (Manual) 69 Band Neutrophils % (Manual) 24 H Lymphocytes % Lymphocytes % (Manual) 4 L Monocytes % Monocytes % (Manual) 3 Eosinophils % Basophils % Nucleated Red Blood Cells % 1 H Immature Granulocytes # 0.210 H Neutrophils # Neutrophils # (Manual) 14.6 H Band Neutrophils # 4.7 H Lymphocytes (Manual) 0.7 L Lymphocytes # Monocytes # Monocytes # (Manual) 0.5 Eosinophils # Basophils # Nucleated Red Blood Cells # Platelet Estimate NORMAL Poikilocytosis 1+ Anisocytosis 1+ Target Cells 1+ Sodium Level 144 Potassium Level 3.0 L Chloride Level 92 L Carbon Dioxide Level 39 H Anion Gap 13 Blood Urea Nitrogen 50 H Creatinine 1.15 Est Glomerular Filtrat Rate mL/min > 60 Glucose Level 161 Calcium Level 10.6 H Medications Current Medications IV Flush (NS 3 ml) 3 ml PER PROTOCOL IV ; Start 08/08/18 at 17:30 Ondansetron HCl (Zofran Inj) 4 mg Q6H PRN IV NAUSEA; Start 08/08/18 at 17:30 Haloperidol (Haldol) 5 mg PRN PRN IM AGGITATED Last administered on 08/16/18 08:32; Admin Dose 5 MG; Start 08/08/18 at 22:00 Fentanyl 100 ml @ 2.5 mls/hr TITRATE IV Last administered on 08/28/18 00:37; Admin Dose 8 MLS/HR; Start 08/09/18 at 06:30 Enoxaparin Sodium (Lovenox) 40 mg Q12H SC Last administered on 09/02/18 09:38; Admin Dose 40 MG; Start 08/09/18 at 21:00 Famotidine (Pepcid) 20 mg BID GTB Last administered on 09/02/18 09:14; Admin Dose 20 MG; Start 08/12/18 at 09:00 Midazolam HCl 50 ml @ 1 mls/hr TITRATE IV Last administered on 08/25/18 11:49; Admin Dose 4 MLS/HR; Start 08/13/18 at 08:30 Naphazoline HCl (Clear Eyes / Naphcon) 2 drop QID BOTH EYES Last administered on 09/02/18 09:14; Admin Dose 2 DROP; Start 08/16/18 at 18:14 Acetaminophen (Tylenol Liquid) 650 mg Q6H PRN NGT MILD PAIN(1-3)OR ELEVATED TEMP Last administered on 08/31/18 07:02; Admin Dose 650 MG; Start 08/17/18 at 00:57 Fluconazole (Diflucan) 100 mg DAILY PO Last administered on 09/02/18 09:14; Admin Dose 100 MG; Start 08/23/18 at 15:00 Colistimethate Sodium 200 mg/ Sodium Chloride 100 ml @ 200 mls/hr Q12 IVPB Last administered on 09/02/18 09:19; Admin Dose 200 MLS/HR; Start 08/26/18 at 21:00 Levalbuterol (Xopenex Hfa) 4 puff Q4H RESP THERAPY PRN INH SHORTNESS OF BREATH Last administered on 08/27/18 05:08; Admin Dose 4 PUFF; Start 08/26/18 at 20:00 Ipratropium [place] (Atrovent Hfa) 2 puff QID RESP THERAPY PRN INH SHORTNESS OF BREATH Last administered on 08/27/18 05:08; Admin Dose 2 PUFF; Start 08/26/18 at 20:00 Metoclopramide HCl (Reglan) 5 mg BID IV Last administered on 09/02/18 09:14; Admin Dose 5 MG; Start 08/27/18 at 21:00 Lorazepam (Ativan) 1 mg Q6H PRN IV AGITATION Last administered on 08/31/18 00:44; Admin Dose 1 MG; Start 08/28/18 at 02:30 Morphine Sulfate (morphine) 2 mg Q2H PRN IV SEVERE PAIN LEVEL 7-10 Last adminis tered on 08/30/18 22:24; Admin Dose 2 MG; Start 08/28/18 at 09:00 Docusate Sodium (Colace Liquid Cup) 200 mg BID PRN NGT CONSTIPATION; Start 08/29/18 at 10:00 Polyethylene Glycol (Miralax) 17 gm DAILY PRN GTB CONSTIPATION; Start 08/29/18 at 10:00 Linezolid (Zyvox) 600 mg BID PO Last administered on 09/02/18 09:14; Admin Dose 600 MG; Start 08/29/18 at 13:00 Ibuprofen (Motrin) 600 mg Q6H PRN GTB MILD PAIN LEVEL 1-3 Last administered on 08/31/18 10:25; Admin Dose 600 MG; Start 08/29/18 at 15:30 Metronidazole (Flagyl) 500 mg Q8 NGT Last administered on 09/02/18 05:32; Admin Dose 500 MG; Start 08/30/18 at 14:00 Scopolamine (Transderm-Scop) 1 patch Q72H TRANSDERM Last administered on 08/18 11/03at 11:37; Admin Dose 1 PATCH; Start 08/31/18 at 11:30 Methylprednisolone Sodium Succinate (Solu-Medrol) 40 mg DAILY IV Last administered on 09/02/18at 09:13; Admin Dose 40 MG; Start 09/02/18 at 09:00 Furosemide (Lasix) 40 mg DAILY@0600 IV Last administered on 09/02/18at 05:32; Admin Dose 40 MG; Start 09/01/18 at 11:30 Quetiapine Fumarate (Seroquel) 50 mg DAILY GTB Last administered on 09/02/18at 09:14; Admin Dose 50 MG; Start 09/02/18 at 09:00 Potassium Chloride 50 ml @ 25 mls/hr Q2H IVPB ; Start 09/02/18 at 10:00; Stop 09/02/18 at 13:59 Assessment/Plan Hospital Course (Demo Recall) IMP: 1. Acute on chronic hypoxemic and hypercapnic respiratory failure, failed multiple weaning trials status post tracheostomy. Significant secretions 2. Component of diastolic dysfunction 3. History of obesity hypoventilation syndrome and probable obstructive sleep apnea 4. Leukocytosis With ongoing fevers and persistent diarrhea. RECS: 1. Continue trach collar as tolerated 2. Continue ID recommendations 3. Tube feeding as tolerated 4. No evidence of NMS with normal CK. 5. TF as tolerated 40 min cc time Keep in ICU today. May be stable to transfer to telemetry tomorrow if decrease secretions. JULIETH PUENTE MD, [id number] Sep 02, 2018 10:10
--- NOTE | 2018-09-02 10:13 | CONS ---
Assessment/Plan Assessment/Plan Hospital Course (Demo Recall) ID PROGRESS NOTE CURRENT ABX: DAY # 25=> Zyvox + Colistin + Flagyl + Diflucan s/p Vanco IV/Zosyn 09/02/18 0537 09/02/18 0537 24H INTERVAL SUMMARY * Awake, alert, s/p TRACH since I last saw the patient * Super morbid obese M * Blood cultures repeated on August 29 negative a culture of the tip of the PICC revealed no growth sputum culture growing gram-negative rods * Chest x-ray revealed worsening patchy bilateral upper lobe and lower lobe infiltrates * 09/01/18 CXR: Worsening patchy bilateral upper lobe and lower lobe infiltrates and atelectatic changes.Mild cardiomegaly.No other significant change. MICRO/OTHER * * 08/30/18 BCx (-) * 08/29/18 PICC Tip (-) * 08/29/18 BCx (-) * 08/29/18 RESP CX: RESPIRATORY CULTURE Final Organism 1 ACINETOBACTER BAUMANNII QUANTITY 1+ A.BAUMANNI A.BAUMANNI M.I.C. RX M.I.C. RX --------- --- --------- --- AMIKACIN R CEFEPIME >=64 R CEFTAZIDIME 16 I CIPROFLOXACIN >=4 R GENTAMICIN >=16 R LEVOFLOXACIN >=8 R MEROPENEM >32 R TOBRAMYCIN >=16 R TRIMETHOPRIM/SULFAMETHOXAZOLE >=320 R PIPERACILLIN/TAZOBACTAM >=128 R * 08/26/18 (-)C.Diff * 08/26/18 BCX (+) Cons BLOOD CULTURE Final BCULT GRAM BOTTLE 1 Gram positive cocci in clusters 1 of 2 bottles . seen on gram stain of the broth Organism 1 COAGULASE NEGATIVE STAPH * 08/16/18 Respiratory Cx (+)ACBA = MDRO * 08/09/18 BRONCH (-) * 08/08/18 (-)MRSA, (-)Influenza A/B, (-)UTI * 08/08/18 BCx (-) * PHYSICAL EXAMINATION: GENERAL: Non-communicative, super morbid obese M, orally intubated, sedated on the Vent, looks comfortable, NAD HEENT: AT, NC, anicteric NECK: Supple, (+)Trach in place CHEST: Equal chest rise bilaterally, without dyspnea on observation = Vented HEART: Pulse RRR ABDOMEN: Soft / NT EXTREMITIES: Warm, dry SKIN: No rash, no diaphoresis, multiple Tattoos ID ASSESSMENT 32 yo Super Morbid Obese M admit with: 1. Sepsis w/Fevers - MULTIFACTORIAL ETIOLOGY * HCAP superimposed on probable ASP PNA * S/P PICC Line Sepsis -- BCx (+) opportunistic CoNS -- PICC Line DC'd 08/29/18 2. Leukocytosis - partial IV steroids demargination 3. PNA -- ASP PNA risk factors 4. Acute hypoxic respiratory failure => s/p Trach placement 5. Obstructive Sleep Apnea/Obesity hypoventilation syndrome 6. 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 Fungal dermatomycosis -- groin/ABD folds 8. Diarrhea = ABX associated w/(-)C.Diff toxin (-)MRSA Nares ABX ALLERGIES: KNDA INVASIVES: PIV, Trach PEG Santiago catheter CURRENT ABX: DAY #25=> Zyvox + Colistin + Flagyl + Diflucan s/p Vanco IV/Zosyn ID RECOMMENDATIONS/PLAN: 1. Continue current ABX and supportive care . Consultation Date/Type/Reason Admit Date/Time Aug 08, 2018 at 17:18 Initial Consult Date 08/09/18 Date/Time of Note DATE: 09/02/18 TIME: 10:12 Exam/Review of Systems Exam Vitals Vital Signs Date Temp Pulse Resp B/P (MAP) Pulse Ox O2 O2 Flow FiO2 Time Delivery Rate 09/02/18 113 23 07:00 09/02/18 Trach 5.0 06:00 Collar 09/02/18 99 28 05:33 09/02/18 98.4 04:00 Intake and Output 09/01/18 09/01/18 09/02/18 1515:00 23:00 07:00 IntakeIntake Total 640 ml 640 ml 680 ml OutputOutput Total 400 ml 410 ml 380 ml BalanceBalance 240 ml 230 ml 300 ml Results Result Diagram: 09/02/18 0537 09/02/18 0537 Results 24hrs Laboratory Tests Test 09/02/18 05:37 White Blood Count 19.8 #H Red Blood Count 5.03 Hemoglobin 11.6 L Hematocrit 42.6 Mean Corpuscular Volume 84.7 Mean Corpuscular Hemoglobin 23.1 L Mean Corpuscular Hemoglobin Concent 27.2 L Red Cell Distribution Width 18.9 H Platelet Count 187 # Mean Platelet Volume 11.4 H Immature Granulocytes % 1.100 H Neutrophils % Segmented Neutrophils % (Manual) 69 Band Neutrophils % (Manual) 24 H Lymphocytes % Lymphocytes % (Manual) 4 L Monocytes % Monocytes % (Manual) 3 Eosinophils % Basophils % Nucleated Red Blood Cells % 1 H Immature Granulocytes # 0.210 H Neutrophils # Neutrophils # (Manual) 14.6 H Band Neutrophils # 4.7 H Lymphocytes (Manual) 0.7 L Lymphocytes # Monocytes # Monocytes # (Manual) 0.5 Eosinophils # Basophils # Nucleated Red Blood Cells # Platelet Estimate NORMAL Poikilocytosis 1+ Anisocytosis 1+ Target Cells 1+ Sodium Level 144 Potassium Level 3.0 L Chloride Level 92 L Carbon Dioxide Level 39 H Anion Gap 13 Blood Urea Nitrogen 50 H Creatinine 1.15 Est Glomerular Filtrat Rate mL/min > 60 Glucose Level 161 Calcium Level 10.6 H Medications Medication Current Medications IV Flush (NS 3 ml) 3 ml PER PROTOCOL IV ; Start 08/08/18 at 17:30 Ondansetron HCl (Zofran Inj) 4 mg Q6H PRN IV NAUSEA; Start 08/08/18 at 17:30 Haloperidol (Haldol) 5 mg PRN PRN IM AGGITATED Last administered on 08/16/18at 08:32; Admin Dose 5 MG; Start 08/08/18 at 22:00 Fentanyl 100 ml @ 2.5 mls/hr TITRATE IV Last administered on 08/28/18at 00:37; Admin Dose 8 MLS/HR; Start 08/09/18 at 06:30 Enoxaparin Sodium (Lovenox) 40 mg Q12H SC Last administered on 09/02/18at 09:38; Admin Dose 40 MG; Start 08/09/18 at 21:00 Famotidine (Pepcid) 20 mg BID GTB Last administered on 09/02/18 09:14; Admin Dose 20 MG; Start 08/12/18 at 09:00 Midazolam HCl 50 ml @ 1 mls/hr TITRATE IV Last administered on 08/25/18 11:49; Admin Dose 4 MLS/HR; Start 08/13/18 at 08:30 Naphazoline HCl (Clear Eyes / Naphcon) 2 drop QID BOTH EYES Last administered on 09/02/18 09:14; Admin Dose 2 DROP; Start 08/16/18 at 18:14 Acetaminophen (Tylenol Liquid) 650 mg Q6H PRN NGT MILD PAIN(1-3)OR ELEVATED TEMP Last administered on 08/31/18 07:02; Admin Dose 650 MG; Start 08/17/18 at 00:57 Fluconazole (Diflucan) 100 mg DAILY PO Last administered on 09/02/18 09:14; Admin Dose 100 MG; Start 08/23/18 at 15:00 Colistimethate Sodium 200 mg/ Sodium Chloride 100 ml @ 200 mls/hr Q12 IVPB Last administered on 09/02/18 09:19; Admin Dose 200 MLS/HR; Start 08/26/18 at 21:00 Levalbuterol (Xopenex Hfa) 4 puff Q4H RESP THERAPY PRN INH SHORTNESS OF BREATH Last administered on 08/27/18 05:08; Admin Dose 4 PUFF; Start 08/26/18 at 20:00 Ipratropium [place] (Atrovent Hfa) 2 puff QID RESP THERAPY PRN INH SHORTNESS OF BREATH Last administered on 08/27/18 05:08; Admin Dose 2 PUFF; Start 08/26/18 at 20:00 Metoclopramide HCl (Reglan) 5 mg BID IV Last administered on 09/02/18 09:14; Admin Dose 5 MG; Start 08/27/18 at 21:00 Lorazepam (Ativan) 1 mg Q6H PRN IV AGITATION Last administered on 08/31/18 00:44; Admin Dose 1 MG; Start 08/28/18 at 02:30 Morphine Sulfate (morphine) 2 mg Q2H PRN IV SEVERE PAIN LEVEL 7-10 Last administered on 08/30/18 22:24; Admin Dose 2 MG; Start 08/28/18 at 09:00 Docusate Sodium (Colace Liquid Cup) 200 mg BID PRN NGT CONSTIPATION; Start 08/29/18 at 10:00 Polyethylene Glycol (Miralax) 17 gm DAILY PRN GTB CONSTIPATION; Start 08/29/18 at 10:00 Linezolid (Zyvox) 600 mg BID PO Last administered on 09/02/18 09:14; Admin Dose 600 MG; Start 08/29/18 at 13:00 Ibuprofen (Motrin) 600 mg Q6H PRN GTB MILD PAIN LEVEL 1-3 Last administered on 08/31/18 10:25; Admin Dose 600 MG; Start 08/29/18 at 15:30 Metronidazole (Flagyl) 500 mg Q8 NGT Last administered on 09/02/18 05:32; Admin Dose 500 MG; Start 08/30/18 at 14:00 Scopolamine (Transderm-Scop) 1 patch Q72H TRANSDERM Last administered on 08/31/18at 11:37; Admin Dose 1 PATCH; Start 08/31/18 at 11:30 Methylprednisolone Sodium Succinate (Solu-Medrol) 40 mg DAILY IV Last administered on 09/02/18 09:13; Admin Dose 40 MG; Start 09/02/18 at 09:00 Furosemide (Lasix) 40 mg DAILY@0600 IV Last administered on 09/02/18 05:32; Admin Dose 40 MG; Start 09/01/18 at 11:30 Quetiapine Fumarate (Seroquel) 50 mg DAILY GTB Last administered on 09/02/18 09:14; Admin Dose 50 MG; Start 09/02/18 at 09:00 Potassium Chloride 50 ml @ 25 mls/hr Q2H IVPB ; Start 09/02/18 at 10:00; Stop 09/02/18 at 13:59 GARCÍA JOHNSON NP Sep 02, 2018 10:13
[2018-09-02] MEDS: LORAZEPAM 2 MG INJ IV PRN ×2 (11:07→17:52)
[2018-09-02] MEDS: POTASSIUM CHLORIDE 50 ML IVPB SCH ×2 (11:14→13:21)
--- NOTE | 2018-09-02 13:00 | PN ---
Date/Time of Note Date/Time of Note DATE: 09/02/18 TIME: 13:00 Assessment/Plan Lines/Catheters IV Catheter Type (from Nrsg): Peripheral IV Santiago in Place (from Nrsg): Yes Assessment/Plan Assessment/Plan Status post tracheostomy Trach site clean Continue vent support Trach care Pulmonary toilet Subjective 24 Hr Interval Summary Constitutional: improved Pain Control: mild Exam/Review of Systems Vital Signs Vitals Vital Signs Date Temp Pulse Resp B/P (MAP) Pulse Ox O2 O2 Flow FiO2 Time Delivery Rate 09/02/18 116 16 114/78 93 Trach 5.0 10:00 (90) Collar 09/02/18 98.9 08:00 09/02/18 28 05:33 Intake and Output 09/01/18 09/01/18 09/02/18 1515:00 23:00 07:00 IntakeIntake Total 640 ml 640 ml 680 ml OutputOutput Total 400 ml 610 ml 380 ml BalanceBalance 240 ml 30 ml 300 ml Exam Eyes: nl conjunctiva, EOMI, nl lids, nl sclera ENMT: nl external ears & nose, nl lips & teeth, nl nasal mucosa & septum, mucosa pink and moist Neck: supple, non-tender Respiratory: clear to auscultation, normal air movement Cardiovascular: regular rate and rhythm, nl pulses Gastrointestinal: soft, nl liver, spleen, non-tender Musculoskeletal: nl extremities to inspection, nl gait and stance Results Result Diagram: 09/02/18 0537 09/02/18 0537 TIMMY DALAL MD Sep 02, 2018 13:00
[2018-09-03] VITALS (24 sets, daily range): BP systolic 93–149; BP diastolic 45–115; PULSE 97–125; RESP 16–32
[2018-09-03] MEDS: metroNIDAZOLE 500 MG TAB NGT SCH ×3 (06:44→22:01)
[2018-09-03] MEDS: FUROSEMIDE 40 MG INJ IV SCH (06:44)
[2018-09-03] MEDS: METHYLPREDNISOLONE 40 MG INJ IV SCH (08:31)
[2018-09-03] MEDS: FAMOTIDINE 20 MG TAB GTB SCH ×2 (08:33→20:36)
[2018-09-03] MEDS: ZYVOX 600 MG TAB PO SCH ×2 (08:33→20:35)
[2018-09-03] MEDS: QUETIAPINE 100 MG TAB GTB SCH (08:33)
[2018-09-03] MEDS: METOCLOPRAMIDE 10 MG INJ IV SCH ×2 (08:33→20:35)
[2018-09-03] MEDS: FLUCONAZOLE 100 MG TAB PO SCH (08:33)
[2018-09-03] MEDS: NAPHAZOLINE 0.012% 15 ML OPH BOTH EYES SCH ×4 (08:39→20:36)
[2018-09-03] MEDS: ENOXAPARIN 40 MG/0.4 ML SYG SC SCH ×2 (08:39→20:51)
[2018-09-03] MEDS: COLISTIMETHATE 200 MG in SOD CHLORIDE 0.9% 100 ML IVPB SCH ×2 (08:49→20:34)
--- NOTE | 2018-09-03 10:17 | CONS ---
Consult Date/Type/Reason Admit Date/Time Aug 08, 2018 at 17:18 Initial Consult Date 08/09/18 Type of Consult Pulmonary Date/Time of Note DATE: 09/03/18 TIME: 10:15 Subjective Less agitated, continues cool aerosol via tracheostomy still with diarrhea Objective Vital Signs Date Temp Pulse Resp B/P (MAP) Pulse Ox O2 O2 Flow FiO2 Time Delivery Rate 09/03/18 110 27 119/75 97 Trach 10:00 (90) Collar 09/03/18 99.1 08:00 09/03/18 8.0 35 07:20 Intake and Output 09/02/18 09/02/18 09/03/18 1515:00 23:00 07:00 IntakeIntake Total 670 ml 740 ml 760 ml OutputOutput Total 510 ml 550 ml 330 ml BalanceBalance 160 ml 190 ml 430 ml Exam GENERAL: Obese young gentleman tracheostomy on cool aerosol VITAL SIGNS: per chart NECK: Supple. No JVD or lymphadenopathy. CARDIAC EXAM: S1, S2. No added sounds or murmurs. CHEST: clear bilaterally, No added sounds, rales or wheezes ABDOMEN: Soft, nontender. No guarding or rebound. EXTREMITIES: No cyanosis, clubbing, edema +2 NEUROLOGIC: Generalized weakness. No focal deficits. Vent Setting Ventilator Support Mode: CPAP, PS Fraction of Inspired Oxygen pe: 35 Positive End Expiratory Pressu: 8.0 Results/Medications Result Diagram: 09/02/18 0537 09/02/18 0537 Medications Current Medications IV Flush (NS 3 ml) 3 ml PER PROTOCOL IV ; Start 08/08/18 at 17:30 Ondansetron HCl (Zofran Inj) 4 mg Q6H PRN IV NAUSEA; Start 08/08/18 at 17:30 Haloperidol (Haldol) 5 mg PRN PRN IM AGGITATED Last administered on 08/16/18at 08:32; Admin Dose 5 MG; Start 08/08/18 at 22:00 Fentanyl 100 ml @ 2.5 mls/hr TITRATE IV Last administered on 08/28/18at 00:37; Admin Dose 8 MLS/HR; Start 08/09/18 at 06:30 Enoxaparin Sodium (Lovenox) 40 mg Q12H SC Last administered on 09/03/18at 08:39; Admin Dose 40 MG; Start 08/09/18 at 21:00 Famotidine (Pepcid) 20 mg BID GTB Last administered on 09/03/18 08:33; Admin Dose 20 MG; Start 08/12/18 at 09:00 Midazolam HCl 50 ml @ 1 mls/hr TITRATE IV Last administered on 08/25/18 11:49; Admin Dose 4 MLS/HR; Start 08/13/18 at 08:30 Naphazoline HCl (Clear Eyes / Naphcon) 2 drop QID BOTH EYES Last administered on 09/03/18 08:39; Admin Dose 2 DROP; Start 08/16/18 at 18:14 Acetaminophen (Tylenol Liquid) 650 mg Q6H PRN NGT MILD PAIN(1-3)OR ELEVATED TEMP Last administered on 08/31/18 07:02; Admin Dose 650 MG; Start 08/17/18 at 00:57 Fluconazole (Diflucan) 100 mg DAILY PO Last administered on 09/03/18 08:33; Admin Dose 100 MG; Start 08/23/18 at 15:00 Colistimethate Sodium 200 mg/ Sodium Chloride 100 ml @ 200 mls/hr Q12 IVPB Last administered on 09/03/18 08:49; Admin Dose 200 MLS/HR; Start 08/26/18 at 21:00 Levalbuterol (Xopenex Hfa) 4 puff Q4H RESP THERAPY PRN INH SHORTNESS OF BREATH Last administered on 08/27/18 05:08; Admin Dose 4 PUFF; Start 08/26/18 at 20:00 Ipratropium [place] (Atrovent Hfa) 2 puff QID RESP THERAPY PRN INH SHORTNESS OF BREATH Last administered on 08/27/18 05:08; Admin Dose 2 PUFF; Start 08/26/18 at 20:00 Metoclopramide HCl (Reglan) 5 mg BID IV Last administered on 09/03/18 08:33; Admin Dose 5 MG; Start 08/27/18 at 21:00 Lorazepam (Ativan) 1 mg Q6H PRN IV AGITATION Last administered on 09/02/18 17:52; Admin Dose 1 MG; Start 08/28/18 at 02:30 Morphine Sulfate (morphine) 2 mg Q2H PRN IV SEVERE PAIN LEVEL 7-10 Last administered on 08/30/18 22:24; Admin Dose 2 MG; Start 08/28/18 at 09:00 Docusate Sodium (Colace Liquid Cup) 200 mg BID PRN NGT CONSTIPATION; Start 08/29/18 at 10:00 Polyethylene Glycol (Miralax) 17 gm DAILY PRN GTB CONSTIPATION; Start 08/29/18 at 10:00 Linezolid (Zyvox) 600 mg BID PO Last administered on 09/03/18 08:33; Admin Dose 600 MG; Start 08/29/18 at 13:00 Ibuprofen (Motrin) 600 mg Q6H PRN GTB MILD PAIN LEVEL 1-3 Last administered on 08/31/18 10:25; Admin Dose 600 MG; Start 08/29/18 at 15:30 Metronidazole (Flagyl) 500 mg Q8 NGT Last administered on 09/03/18at 06:44; Admin Dose 500 MG; Start 08/30/18 at 14:00 Scopolamine (Transderm-Scop) 1 patch Q72H TRANSDERM Last administered on 08/31/18at 11:37; Admin Dose 1 PATCH; Start 08/31/18 at 11:30 Methylprednisolone Sodium Succinate (Solu-Medrol) 40 mg DAILY IV Last administered on 09/03/18 08:31; Admin Dose 40 MG; Start 09/02/18 at 09:00 Furosemide (Lasix) 40 mg DAILY@0600 IV Last administered on 09/03/18 06:44; Admin Dose 40 MG; Start 09/01/18 at 11:30 Quetiapine Fumarate (Seroquel) 50 mg DAILY GTB Last administered on 09/03/18at 0 8:33; Admin Dose 50 MG; Start 09/02/18 at 09:00 Assessment/Plan Hospital Course (Demo Recall) IMP: 1. Acute on chronic hypoxemic and hypercapnic respiratory failure, failed multiple weaning trials status post tracheostomy. Significant secretions, 2. Component of diastolic dysfunction 3. History of obesity hypoventilation syndrome and probable obstructive sleep apnea 4. Leukocytosis With ongoing fevers and persistent diarrhea. RECS: 1. Continue trach collar as tolerated tracheostomy site care, DC trach sutures. 2. Continue ID recommendations 3. Tube feeding as tolerated 4. Physical therapy encourage mobility 5. TF as tolerated 40 min cc time Anticipate transfer to telemetry tomorrow. JULIETH PUENTE MD, [facility] Sep 03, 2018 10:17
--- NOTE | 2018-09-03 10:23 | CONS ---
Assessment/Plan Assessment/Plan Hospital Course (Demo Recall) ID PROGRESS NOTE CURRENT ABX: DAY # 26=> Zyvox + Colistin + Flagyl + Diflucan s/p Vanco IV/Zosyn 09/02/18 0537 09/02/18 0537 24H INTERVAL SUMMARY * Awake resting comfortably on the Vent, NAD, family at bedside. No new issues, no c/o - Super morbid obese M * WBC up today -- patient on IV steroids * Chest x-ray revealed worsening patchy bilateral upper lobe and lower lobe infiltrates * 09/01/18 CXR: Worsening patchy bilateral upper lobe and lower lobe infiltrates and atelectatic changes.Mild cardiomegaly.No other significant change. MICRO/OTHER * Blood cultures repeated on August 29 negative a culture of the tip of the PICC revealed no growth sputum culture growing gram-negative rods * 08/30/18 BCx (-) * 08/29/18 PICC Tip (-) * 08/29/18 BCx (-) * 08/29/18 RESP CX: RESPIRATORY CULTURE Final Organism 1 ACINETOBACTER BAUMANNII QUANTITY 1+ A.BAUMANNI A.BAUMANNI M.I.C. RX M.I.C. RX --------- --- --------- --- AMIKACIN R CEFEPIME >=64 R CEFTAZIDIME 16 I CIPROFLOXACIN >=4 R GENTAMICIN >=16 R LEVOFLOXACIN >=8 R MEROPENEM >32 R TOBRAMYCIN >=16 R TRIMETHOPRIM/SULFAMETHOXAZOLE >=320 R PIPERACILLIN/TAZOBACTAM >=128 R * 08/26/18 (-)C.Diff * 08/26/18 BCX (+) Cons BLOOD CULTURE Final BCULT GRAM BOTTLE 1 Gram positive cocci in clusters 1 of 2 bottles . seen on gram stain of the broth Organism 1 COAGULASE NEGATIVE STAPH * 08/16/18 Respiratory Cx (+)ACBA = MDRO * 08/09/18 BRONCH (-) * 08/08/18 (-)MRSA, (-)Influenza A/B, (-)UTI * 08/08/18 BCx (-) * PHYSICAL EXAMINATION: GENERAL: Non-communicative, super morbid obese M, orally intubated, sedated on the Vent, looks comfortable, NAD HEENT: AT, NC, anicteric NECK: Supple, (+)Trach in place CHEST: Equal chest rise bilaterally, without dyspnea on observation = Vented HEART: Pulse RRR ABDOMEN: Soft / NT EXTREMITIES: Warm, dry SKIN: No rash, no diaphoresis, multiple Tattoos ID ASSESSMENT 32 yo Super Morbid Obese M admit with: 1. Sepsis w/Fevers - MULTIFACTORIAL ETIOLOGY * HCAP superimposed on probable ASP PNA * S/P PICC Line Sepsis -- BCx (+) opportunistic CoNS -- PICC Line DC'd 08/29/18 2. Leukocytosis - partial IV steroids demargination 3. PNA -- ASP PNA risk factors * 08/09/18 BRONCH (-) 4. Acute hypoxic respiratory failure => s/p Trach placement 5. Obstructive Sleep Apnea/Obesity hypoventilation syndrome 6. 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 Fungal dermatomycosis -- groin/ABD folds 8. Diarrhea = ABX associated w/(-)C.Diff toxin (-)MRSA Nares ABX ALLERGIES: KNDA INVASIVES: PIV, Trach PEG Santiago catheter CURRENT ABX: DAY #26=> Zyvox + Colistin + Flagyl + Diflucan s/p Vanco IV/Zosyn ID RECOMMENDATIONS/PLAN: 1. Continue current ABX remains on Zyvox for CoNS(+)BCx from 08/26 and Colistin for (+)ACBA sputum 08/29 * Renal fx and PLTS stable on current ABX . Consultation Date/Type/Reason Admit Date/Time Aug 08, 2018 at 17:18 Initial Consult Date 08/09/18 Date/Time of Note DATE: 09/03/18 TIME: 10:16 Exam/Review of Systems Exam Vitals Vital Signs Date Temp Pulse Resp B/P (MAP) Pulse Ox O2 O2 Flow FiO2 Time Delivery Rate 09/03/18 110 27 119/75 97 Trach 10:00 (90) Collar 09/03/18 99.1 08:00 09/03/18 8.0 35 07:20 Intake and Output 09/02/18 09/02/18 09/03/18 1515:00 23:00 07:00 IntakeIntake Total 670 ml 740 ml 760 ml OutputOutput Total 510 ml 550 ml 330 ml BalanceBalance 160 ml 190 ml 430 ml Results Result Diagram: 09/02/18 0537 09/02/1837 Medications Medication Current Medications IV Flush (NS 3 ml) 3 ml PER PROTOCOL IV ; Start 08/08/18 at 17:30 Ondansetron HCl (Zofran Inj) 4 mg Q6H PRN IV NAUSEA; Start 08/08/18 at 17:30 Haloperidol (Haldol) 5 mg PRN PRN IM AGGITATED Last administered on 08/16/18 08:32; Admin Dose 5 MG; Start 08/08/18 at 22:00 Fentanyl 100 ml @ 2.5 mls/hr TITRATE IV Last administered on 08/28/18 00:37; Admin Dose 8 MLS/HR; Start 08/09/18 at 06:30 Enoxaparin Sodium (Lovenox) 40 mg Q12H SC Last administered on 09/03/18 08:39; Admin Dose 40 MG; Start 08/09/18 at 21:00 Famotidine (Pepcid) 20 mg BID GTB Last administered on 09/03/18 08:33; Admin Dose 20 MG; Start 08/12/18 at 09:00 Midazolam HCl 50 ml @ 1 mls/hr TITRATE IV Last administered on 08/25/18 11:49; Admin Dose 4 MLS/HR; Start 08/13/18 at 08:30 Naphazoline HCl (Clear Eyes / Naphcon) 2 drop QID BOTH EYES Last administered on 09/03/18 08:39; Admin Dose 2 DROP; Start 08/16/18 at 18:14 Acetaminophen (Tylenol Liquid) 650 mg Q6H PRN NGT MILD PAIN(1-3)OR ELEVATED TEMP Last administered on 08/31/18 07:02; Admin Dose 650 MG; Start 08/17/18 at 00:57 Fluconazole (Diflucan) 100 mg DAILY PO Last administered on 09/03/18 08:33; Admin Dose 100 MG; Start 08/23/18 at 15:00 Colistimethate Sodium 200 mg/ Sodium Chloride 100 ml @ 200 mls/hr Q12 IVPB Last administered on 09/03/18 08:49; Admin Dose 200 MLS/HR; Start 08/26/18 at 21:00 Levalbuterol (Xopenex Hfa) 4 puff Q4H RESP THERAPY PRN INH SHORTNESS OF BREATH Last administered on 08/27/18 05:08; Admin Dose 4 PUFF; Start 08/26/18 at 20:00 Ipratropium [place] (Atrovent Hfa) 2 puff QID RESP THERAPY PRN INH SHORTNESS OF BREATH Last administered on 08/27/18 05:08; Admin Dose 2 PUFF; Start 08/26/18 at 20:00 Metoclopramide HCl (Reglan) 5 mg BID IV Last administered on 09/03/18 08:33; Admin Dose 5 MG; Start 08/27/18 at 21:00 Lorazepam (Ativan) 1 mg Q6H PRN IV AGITATION Last administered on 09/02/18 17:52; Admin Dose 1 MG; Start 08/28/18 at 02:30 Morphine Sulfate (morphine) 2 mg Q2H PRN IV SEVERE PAIN LEVEL 7-10 Last administered on 08/30/18 22:24; Admin Dose 2 MG; Start 08/28/18 at 09:00 Docusate Sodium (Colace Liquid Cup) 200 mg BID PRN NGT CONSTIPATION; Start 08/29/18 at 10:00 Polyethylene Glycol (Miralax) 17 gm DAILY PRN GTB CONSTIPATION; Start 08/29/18 at 10:00 Linezolid (Zyvox) 600 mg BID PO Last administered on 09/03/18 08:33; Admin Dose 600 MG; Start 08/29/18 at 13:00 Ibuprofen (Motrin) 600 mg Q6H PRN GTB MILD PAIN LEVEL 1-3 Last administered on 08/31/18 10:25; Admin Dose 600 MG; Start 08/29/18 at 15:30 Metronidazole (Flagyl) 500 mg Q8 NGT Last administered on 09/03/18 06:44; Admin Dose 500 MG; Start 08/30/18 at 14:00 Scopolamine (Transderm-Scop) 1 patch Q72H TRANSDERM Last administered on 08/31/18at 11:37; Admin Dose 1 PATCH; Start 08/31/18 at 11:30 Methylprednisolone Sodium Succinate (Solu-Medrol) 40 mg DAILY IV Last administered on 09/03/18at 08:31; Admin Dose 40 MG; Start 09/02/18 at 09:00 Furosemide (Lasix) 40 mg DAILY@0600 IV Last administered on 09/03/18at 06:44; Admin Dose 40 MG; Start 09/01/18 at 11:30 Quetiapine Fumarate (Seroquel) 50 mg DAILY GTB Last administered on 09/03/18at 08:33; Admin Dose 50 MG; Start 09/02/18 at 09:00 GARCÍA JOHNSON NP Sep 03, 2018 10:23
[2018-09-03] MEDS: SCOPOLAMINE 1.5 MG PATCH TRANSDERM SCH (11:19)
--- NOTE | 2018-09-03 12:45 | PN ---
Date/Time of Note Date/Time of Note DATE: 09/03/18 TIME: 12:44 Assessment/Plan Lines/Catheters IV Catheter Type (from Nrsg): Peripheral IV Santiago in Place (from Nrsg): Yes Assessment/Plan Assessment/Plan Respiratory failure Status post trach Patient improving Will remove sutures Subjective 24 Hr Interval Summary Constitutional: improved Pain Control: mild Exam/Review of Systems Vital Signs Vitals Vital Signs Date Temp Pulse Resp B/P (MAP) Pulse Ox O2 O2 Flow FiO2 Time Delivery Rate 09/03/18 99.1 111 27 121/77 97 Trach 12:00 (92) Collar 09/03/18 8.0 35 07:20 Intake and Output 09/02/18 09/02/18 09/03/18 1515:00 23:00 07:00 IntakeIntake Total 670 ml 740 ml 760 ml OutputOutput Total 510 ml 550 ml 330 ml BalanceBalance 160 ml 190 ml 430 ml Exam Eyes: nl conjunctiva, EOMI, nl lids, nl sclera ENMT: nl external ears & nose, nl lips & teeth, nl nasal mucosa & septum, mucosa pink and moist Neck: supple, non-tender Respiratory: clear to auscultation, normal air movement Cardiovascular: regular rate and rhythm, nl pulses Gastrointestinal: soft, nl liver, spleen, non-tender Musculoskeletal: nl extremities to inspection, nl gait and stance Results Result Diagram: 09/02/18 0537 09/02/18 0537 TIMMY DALAL MD Sep 03, 2018 12:45
[2018-09-04] VITALS (24 sets, daily range): BP systolic 71–135; BP diastolic 36–100; PULSE 102–133; RESP 18–32
[2018-09-04] MEDS: LORAZEPAM 2 MG INJ IV PRN ×2 (02:12→09:17)
[2018-09-04] MEDS: metroNIDAZOLE 500 MG TAB NGT SCH ×3 (05:50→21:16)
[2018-09-04] MEDS: METHYLPREDNISOLONE 40 MG INJ IV SCH (08:35)
[2018-09-04] MEDS: METOCLOPRAMIDE 10 MG INJ IV SCH (08:35)
[2018-09-04] MEDS: ZYVOX 600 MG TAB PO SCH (08:36)
[2018-09-04] MEDS: FAMOTIDINE 20 MG TAB GTB SCH ×2 (08:36→21:16)
[2018-09-04] MEDS: QUETIAPINE 100 MG TAB GTB SCH (08:36)
[2018-09-04] MEDS: NAPHAZOLINE 0.012% 15 ML OPH BOTH EYES SCH ×4 (08:36→21:28)
[2018-09-04] MEDS: FLUCONAZOLE 100 MG TAB PO SCH (08:36)
[2018-09-04] MEDS: ENOXAPARIN 40 MG/0.4 ML SYG SC SCH ×2 (08:51→21:27)
[2018-09-04] MEDS: COLISTIMETHATE 200 MG in SOD CHLORIDE 0.9% 100 ML IVPB SCH ×2 (09:00→10:45)
--- NOTE | 2018-09-04 09:35 | CONS ---
Assessment/Plan Assessment/Plan Hospital Course (Demo Recall) ID PROGRESS NOTE CURRENT ABX: DAY # 27=> Zyvox + Colistin + Flagyl + Diflucan s/p Vanco IV/Zosyn 09/04/188 09/04/18 0448 24H INTERVAL SUMMARY * WBC improved -- s.Creatinine elevated today * Lethartic -- awakens easilly, NAD, no c/o - Super morbid obese M * WBC up down today --- yesterday was elevated - patient on IV steroids * Chest x-ray revealed worsening patchy bilateral upper lobe and lower lobe infiltrates * 09/01/18 CXR: Worsening patchy bilateral upper lobe and lower lobe infiltrates and atelectatic changes.Mild cardiomegaly.No other significant change. MICRO/OTHER * Blood cultures repeated on August 29 negative a culture of the tip of the PICC revealed no growth sputum culture growing gram-negative rods * 08/30/18 BCx (-) * 08/29/18 PICC Tip (-) * 08/29/18 BCx (-) * 08/29/18 RESP CX: RESPIRATORY CULTURE Final Organism 1 ACINETOBACTER BAUMANNII QUANTITY 1+ A.BAUMANNI A.BAUMANNI M.I.C. RX M.I.C. RX --------- --- --------- --- AMIKACIN R CEFEPIME >=64 R CEFTAZIDIME 16 I CIPROFLOXACIN >=4 R GENTAMICIN >=16 R LEVOFLOXACIN >=8 R MEROPENEM >32 R TOBRAMYCIN >=16 R TRIMETHOPRIM/SULFAMETHOXAZOLE >=320 R PIPERACILLIN/TAZOBACTAM >=128 R * 08/26/18 (-)C.Diff * 08/26/18 BCX (+) Cons BLOOD CULTURE Final BCULT GRAM BOTTLE 1 Gram positive cocci in clusters 1 of 2 bottles . seen on gram stain of the broth Organism 1 COAGULASE NEGATIVE STAPH * 08/16/18 Respiratory Cx (+)ACBA = MDRO * 08/09/18 BRONCH (-) * 08/08/18 (-)MRSA, (-)Influenza A/B, (-)UTI * 08/08/18 BCx (-) * PHYSICAL EXAMINATION: GENERAL: Non-communicative, super morbid obese M, orally intubated, sedated on the Vent, looks comfortable, NAD HEENT: AT, NC, anicteric NECK: Supple, (+)Trach in place CHEST: Equal chest rise bilaterally, without dyspnea on observation = Vented HEART: Pulse RRR ABDOMEN: Soft / NT EXTREMITIES: Warm, dry SKIN: No rash, no diaphoresis, multiple Tattoos ID ASSESSMENT 32 yo Super Morbid Obese M admit with: 1. Sepsis w/Fevers - MULTIFACTORIAL ETIOLOGY * HCAP superimposed on probable ASP PNA * S/P PICC Line Sepsis -- BCx (+) opportunistic CoNS -- PICC Line DC'd 08/29/18 2. Leukocytosis - partial IV steroids demargination 3. PNA -- ASP PNA risk factors * 08/09/18 BRONCH (-) 4. Acute hypoxic respiratory failure => s/p Trach placement 5. Obstructive Sleep Apnea/Obesity hypoventilation syndrome 6. 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 Fungal dermatomycosis -- groin/ABD folds 8. Diarrhea = ABX associated w/(-)C.Diff toxin (-)MRSA Nares ABX ALLERGIES: KNDA INVASIVES: PIV, Trach PEG Santiago catheter CURRENT ABX: DAY #27=> Zyvox + Colistin + Flagyl + Diflucan s/p Vanco IV/Zosyn ID RECOMMENDATIONS/PLAN: 1. DC SYSTEMIC IV ABX TODAY -- His S.Creatinine has risen on Colistin IV 2. Will continue Flagyl via GT and start Colistin INH via Trach 3. Monitor response OFF IV ABX . Consultation Date/Type/Reason Admit Date/Time Aug 08, 2018 at 17:18 Initial Consult Date 08/09/18 Date/Time of Note DATE: 09/04/18 TIME: 09:30 Exam/Review of Systems Exam Vitals Vital Signs Date Temp Pulse Resp B/P (MAP) Pulse Ox O2 O2 Flow FiO2 Time Delivery Rate 09/04/18 98 10.0 40 07:45 09/04/18 99.1 114 23 108/65 Trach 07:00 (79) Collar Intake and Output 09/03/18 09/03/18 09/04/18 1515:00 23:00 07:00 IntakeIntake Total 520 ml 720 ml 730 ml OutputOutput Total 1050 ml 450 ml 255 ml BalanceBalance -530 ml 270 ml 475 ml Results Result Diagram: 09/04/188 09/04/18 0448 Results 24hrs Laboratory Tests Test 09/04/18 04:48 09/04/18 08:00 White Blood Count 12.0 #H Red Blood Count 5.04 Hemoglobin 11.7 L Hematocrit 42.8 Mean Corpuscular Volume 84.9 Mean Corpuscular Hemoglobin 23.2 L Mean Corpuscular Hemoglobin Concent 27.3 L Red Cell Distribution Width 19.7 H Platelet Count 168 Mean Platelet Volume Immature Granulocytes % 2.800 H Neutrophils % 83.3 H Lymphocytes % 5.2 L Monocytes % 8.1 Eosinophils % 0.0 Basophils % 0.6 Nucleated Red Blood Cells % 0.3 H Immature Granulocytes # 0.340 H Neutrophils # 10.0 H Lymphocytes # 0.6 L Monocytes # 1.0 H Eosinophils # 0.0 Basophils # 0.1 Nucleated Red Blood Cells # 0.0 Sodium Level 144 Potassium Level 3.8 Chloride Level 92 L Carbon Dioxide Level 36 H Anion Gap 16 H Blood Urea Nitrogen 70 H Creatinine 1.55 H Est Glomerular Filtrat Rate mL/min 52 L Glucose Level 178 Calcium Level 10.9 H Phosphorus Level 5.2 H Magnesium Level 2.4 Blood Gas Specimen Source Blood arterial Arterial Blood Date Drawn 09/04/2018 8:22:03 AM Arterial Blood pH (Temp corrected) 7.431 Arterial Blood pCO2 (Temp correct) 56.0 H Arterial Blood pO2 (Temp corrected) 101.8 H Arterial Blood HCO3 36.4 H Arterial Blood Base Excess 10.2 H Arterial Blood Oxygen Saturation 97.8 James Test ACCEPTAB Arterial Blood Gas Puncture Site Right Radial Arterial Blood Carboxyhemoglobin 0.7 Arterial Blood Methemoglobin 0.3 Blood Gas A-a O2 Differential 191.7 H Oxyhemoglobin Percent 96.8 Blood Gas Temperature 37.0 Blood Gas Modality TRACH COLLAR FiO2 50.0 Blood Gas Notified Whom SM Blood Gas Notified Time 09/04/2018 8:33:18 AM Medications Medication Current Medications IV Flush (NS 3 ml) 3 ml PER PROTOCOL IV ; Start 08/08/18 at 17:30 Ondansetron HCl (Zofran Inj) 4 mg Q6H PRN IV NAUSEA; Start 08/08/18 at 17:30 Haloperidol (Haldol) 5 mg PRN PRN IM AGGITATED Last administered on 08/16/18 08:32; Admin Dose 5 MG; Start 08/08/18 at 22:00 Fentanyl 100 ml @ 2.5 mls/hr TITRATE IV Last administered on 08/28/18 00:37; Admin Dose 8 MLS/HR; Start 08/09/18 at 06:30 Enoxaparin Sodium (Lovenox) 40 mg Q12H SC Last administered on 09/04/18 08:51; Admin Dose 40 MG; Start 08/09/18 at 21:00 Famotidine (Pepcid) 20 mg BID GTB Last administered on 09/04/18 08:36; Admin Dose 20 MG; Start 08/12/18 at 09:00 Midazolam HCl 50 ml @ 1 mls/hr TITRATE IV Last administered on 08/25/18 11:49; Admin Dose 4 MLS/HR; Start 08/13/18 at 08:30 Naphazoline HCl (Clear Eyes / Naphcon) 2 drop QID BOTH EYES Last administered on 09/04/18 08:36; Admin Dose 2 DROP; Start 08/16/18 at 18:14 Acetaminophen (Tylenol Liquid) 650 mg Q6H PRN NGT MILD PAIN(1-3)OR ELEVATED TEMP Last administered on 08/31/18 07:02; Admin Dose 650 MG; Start 08/17/18 at 00:57 Fluconazole (Diflucan) 100 mg DAILY PO Last administered on 09/04/18 08:36; Ad min Dose 100 MG; Start 08/23/18 at 15:00 Colistimethate Sodium 200 mg/ Sodium Chloride 100 ml @ 200 mls/hr Q12 IVPB Last administered on 09/03/18 20:34; Admin Dose 200 MLS/HR; Start 08/26/18 at 21:00 Levalbuterol (Xopenex Hfa) 4 puff Q4H RESP THERAPY PRN INH SHORTNESS OF BREATH Last administered on 08/27/18 05:08; Admin Dose 4 PUFF; Start 08/26/18 at 20:00 Ipratropium [place] (Atrovent Hfa) 2 puff QID RESP THERAPY PRN INH SHORTNESS OF BREATH Last administered on 08/27/18 05:08; Admin Dose 2 PUFF; Start 08/26/18 at 20:00 Metoclopramide HCl (Reglan) 5 mg BID IV Last administered on 09/04/18 08:35; Admin Dose 5 MG; Start 08/27/18 at 21:00 Lorazepam (Ativan) 1 mg Q6H PRN IV AGITATION Last administered on 09/04/18 09:17; Admin Dose 1 MG; Start 08/28/18 at 02:30 Morphine Sulfate (morphine) 2 mg Q2H PRN IV SEVERE PAIN LEVEL 7-10 Last administered on 08/30/18 22:24; Admin Dose 2 MG; Start 08/28/18 at 09:00 Docusate Sodium (Colace Liquid Cup) 200 mg BID PRN NGT CONSTIPATION; Start 07/05 at 10:00 Polyethylene Glycol (Miralax) 17 gm DAILY PRN GTB CONSTIPATION; Start 08/29/18 at 10:00 Linezolid (Zyvox) 600 mg BID PO Last administered on 09/04/18 08:36; Admin Dose 600 MG; Start 08/29/18 at 13:00 Ibuprofen (Motrin) 600 mg Q6H PRN GTB MILD PAIN LEVEL 1-3 Last administered on 08/31/18 10:25; Admin Dose 600 MG; Start 08/29/18 at 15:30 Metronidazole (Flagyl) 500 mg Q8 NGT Last administered on 09/04/18 05:50; Admin Dose 500 MG; Start 08/30/18 at 14:00 Scopolamine (Transderm-Scop) 1 patch Q72H TRANSDERM Last administered on 09/03/18 11:19; Admin Dose 1 PATCH; Start 08/31/18 at 11:30 Methylprednisolone Sodium Succinate (Solu-Medrol) 40 mg DAILY IV Last administered on 09/04/18 08:35; Admin Dose 40 MG; Start 09/02/18 at 09:00 Furosemide (Lasix) 40 mg DAILY@0600 IV Last administered on 09/03/18at 06:44; Admin Dose 40 MG; Start 09/01/18 at 11:30 Quetiapine Fumarate (Seroquel) 50 mg DAILY GTB Last administered on 09/04/18at 08:36; Admin Dose 50 MG; Start 09/02/18 at 09:00 GARCÍA JOHNSON NP Sep 04, 2018 09:35
--- NOTE | 2018-09-04 09:47 | PN ---
Date/Time of Note Date/Time of Note DATE: 09/04/18 TIME: 09:40 Assessment/Plan VTE Prophylaxis Risk score (from Nsg)>0 risk: 4 Pharmacological prophylaxis: LMWH Lines/Catheters IV Catheter Type (from Nrsg): Peripheral IV Urinary Cath still in place: Yes Reason Cath still needed: other (indicate) Assessment/Plan Hospital Course S: no noew complaints, remains in ICU d/t persistent amount of copious secretions requiring almost 1/2 hrly suctioning O: Gen: Morbidly obese man lying in bed, opens eyes, attempts to speak Neck: Obese, trach, HEENT: [place], scleral icterus Card: distant heart sounds Pulm: distant lung sounds. coarse Abd: Morbidly obese, soft, nontender, G-tube in place Ext: Bilateral LE chronic venous stasis changes, no edema, skin discoloration Neuro: No focal deficits, generalized lethargy, can barely raise his legs from the bed assessment and plan: Morbidly obese male who had presented with shortness of breath currently managed as follows: 1. Hypoxic/hypercapnic respiratory failure: -Secondary to ANDREW, exacerbated by pneumonia -Intubated , status post trach 08/24 -Currently off the ventilator, remains in ICU due to requiring frequent suctioning and copious secretions 2. Bilateral pneumonia -Cultures grew MDR Acinetobacter 3. Acute renal insufficiency likely secondary to overdiuresis -Urine concentrated, will increase free water 4. Functional dysphagia status post PEG -Secondary to trach 5. Chronic hypochromic anemia 6. Severe Obesity -high risk for skin breakdown, 7. Debility and lethargy -PT eval reordered for today, patient may fare better if he starts moving Plan -Continue ICU supportive care -Continue antibiotics per ID recommendations, add inhaled treatments?, -Continue aggressive respiratory support -Hold Lasix for now, renally dose all meds, monitor serum creatinine and renal function -We will also get renal ultrasound to rule out obstructive causes, though unlikely -PT -plan of care discussed with patient and his mother CRITICAL CARE TIME: >35 mins Result Diagram: 09/04/1844709/04/18447 Results 24hrs Laboratory Tests Test 09/04/18 04:48 09/04/18 08:00 White Blood Count 12.0 #H Red Blood Count 5.04 Hemoglobin 11.7 L Hematocrit 42.8 Mean Corpuscular Volume 84.9 Mean Corpuscular Hemoglobin 23.2 L Mean Corpuscular Hemoglobin Concent 27.3 L Red Cell Distribution Width 19.7 H Platelet Count 168 Mean Platelet Volume Immature Granulocytes % 2.800 H Neutrophils % 83.3 H Lymphocytes % 5.2 L Monocytes % 8.1 Eosinophils % 0.0 Basophils % 0.6 Nucleated Red Blood Cells % 0.3 H Immature Granulocytes # 0.340 H Neutrophils # 10.0 H Lymphocytes # 0.6 L Monocytes # 1.0 H Eosinophils # 0.0 Basophils # 0.1 Nucleated Red Blood Cells # 0.0 Sodium Level 144 Potassium Level 3.8 Chloride Level 92 L Carbon Dioxide Level 36 H Anion Gap 16 H Blood Urea Nitrogen 70 H Creatinine 1.55 H Est Glomerular Filtrat Rate mL/min 52 L Glucose Level 178 Calcium Level 10.9 H Phosphorus Level 5.2 H Magnesium Level 2.4 Blood Gas Specimen Source Blood arterial Arterial Blood Date Drawn 09/04/2018 8:22:03 AM Arterial Blood pH (Temp corrected) 7.431 Arterial Blood pCO2 (Temp correct) 56.0 H Arterial Blood pO2 (Temp corrected) 101.8 H Arterial Blood HCO3 36.4 H Arterial Blood Base Excess 10.2 H Arterial Blood Oxygen Saturation 97.8 James Test ACCEPTAB Arterial Blood Gas Puncture Site Right Radial Arterial Blood Carboxyhemoglobin 0.7 Arterial Blood Methemoglobin 0.3 Blood Gas A-a O2 Differential 191.7 H Oxyhemoglobin Percent 96.8 Blood Gas Temperature 37.0 Blood Gas Modality TRACH COLLAR FiO2 50.0 Blood Gas Notified Whom SM Blood Gas Notified Time 09/04/2018 8:33:18 AM Exam/Review of Systems Exam Vitals Vital Signs Date Temp Pulse Resp B/P (MAP) Pulse Ox O2 O2 Flow FiO2 Time Delivery Rate 09/04/18 98 10.0 40 07:45 09/04/18 99.1 114 23 108/65 Trach 07:00 (79) Collar Intake and Output 09/03/18 09/03/18 09/04/18 1515:00 23:00 07:00 IntakeIntake Total 520 ml 720 ml 730 ml OutputOutput Total 1050 ml 450 ml 255 ml BalanceBalance -530 ml 270 ml 475 ml Results Results 24hrs Laboratory Tests Test 09/04/18 04:48 09/04/18 08:00 White Blood Count 12.0 #H Red Blood Count 5.04 Hemoglobin 11.7 L Hematocrit 42.8 Mean Corpuscular Volume 84.9 Mean Corpuscular Hemoglobin 23.2 L Mean Corpuscular Hemoglobin Concent 27.3 L Red Cell Distribution Width 19.7 H Platelet Count 168 Mean Platelet Volume Immature Granulocytes % 2.800 H Neutrophils % 83.3 H Lymphocytes % 5.2 L Monocytes % 8.1 Eosinophils % 0.0 Basophils % 0.6 Nucleated Red Blood Cells % 0.3 H Immature Granulocytes # 0.340 H Neutrophils # 10.0 H Lymphocytes # 0.6 L Monocytes # 1.0 H Eosinophils # 0.0 Basophils # 0.1 Nucleated Red Blood Cells # 0.0 Sodium Level 144 Potassium Level 3.8 Chloride Level 92 L Carbon Dioxide Level 36 H Anion Gap 16 H Blood Urea Nitrogen 70 H Creatinine 1.55 H Est Glomerular Filtrat Rate mL/min 52 L Glucose Level 178 Calcium Level 10.9 H Phosphorus Level 5.2 H Magnesium Level 2.4 Blood Gas Specimen Source Blood arterial Arterial Blood Date Drawn 09/04/2018 8:22:03 AM Arterial Blood pH (Temp corrected) 7.431 Arterial Blood pCO2 (Temp correct) 56.0 H Arterial Blood pO2 (Temp corrected) 101.8 H Arterial Blood HCO3 36.4 H Arterial Blood Base Excess 10.2 H Arterial Blood Oxygen Saturation 97.8 James Test ACCEPTAB Arterial Blood Gas Puncture Site Right Radial Arterial Blood Carboxyhemoglobin 0.7 Arterial Blood Methemoglobin 0.3 Blood Gas A-a O2 Differential 191.7 H Oxyhemoglobin Percent 96.8 Blood Gas Temperature 37.0 Blood Gas Modality TRACH COLLAR FiO2 50.0 Blood Gas Notified Whom Blood Gas Notified Time 09/04/2018 8:33:18 AM Medications Medication Current Medications IV Flush (NS 3 ml) 3 ml PER PROTOCOL IV ; Start 08/08/18 at 17:30 Ondansetron HCl (Zofran Inj) 4 mg Q6H PRN IV NAUSEA; Start 08/08/18 at 17:30 Haloperidol (Haldol) 5 mg PRN PRN IM AGGITATED Last administered on 08/16/18at 08:32; Admin Dose 5 MG; Start 08/08/18 at 22:00 Fentanyl 100 ml @ 2.5 mls/hr TITRATE IV Last administered on 08/28/18at 00:37; Admin Dose 8 MLS/HR; Start 08/09/18 at 06:30 Enoxaparin Sodium (Lovenox) 40 mg Q12H SC Last administered on 09/04/18 08:51; Admin Dose 40 MG; Start 08/09/18 at 21:00 Famotidine (Pepcid) 20 mg BID GTB Last administered on 09/04/18 08:36; Admin Dose 20 MG; Start 08/12/18 at 09:00 Midazolam HCl 50 ml @ 1 mls/hr TITRATE IV Last administered on 08/25/18 11:49; Admin Dose 4 MLS/HR; Start 08/13/18 at 08:30 Naphazoline HCl (Clear Eyes / Naphcon) 2 drop QID BOTH EYES Last administered on 09/04/18 08:36; Admin Dose 2 DROP; Start 08/16/18 at 18:14 Acetaminophen (Tylenol Liquid) 650 mg Q6H PRN NGT MILD PAIN(1-3)OR ELEVATED TEMP Last administered on 08/31/18 07:02; Admin Dose 650 MG; Start 08/17/18 at 00:57 Fluconazole (Diflucan) 100 mg DAILY PO Last administered on 09/04/18 08:36; Admin Dose 100 MG; Start 08/23/18 at 15:00 Colistimethate Sodium 200 mg/ Sodium Chloride 100 ml @ 200 mls/hr Q12 IVPB Last administered on 09/03/18 20:34; Admin Dose 200 MLS/HR; Start 08/26/18 at 21:00 Levalbuterol (Xopenex Hfa) 4 puff Q4H RESP THERAPY PRN INH SHORTNESS OF BREATH Last administered on 08/27/18 05:08; Admin Dose 4 PUFF; Start 08/26/18 at 20:00 Ipratropium [place] (Atrovent Hfa) 2 puff QID RESP THERAPY PRN INH SHORTNESS OF BREATH Last administered on 08/27/18 05:08; Admin Dose 2 PUFF; Start 08/26/18 at 20:00 Metoclopramide HCl (Reglan) 5 mg BID IV Last administered on 09/04/18 08:35; Admin Dose 5 MG; Start 08/27/18 at 21:00 Lorazepam (Ativan) 1 mg Q6H PRN IV AGITATION Last administered on 09/04/18 09:17; Admin Dose 1 MG; Start 08/28/18 at 02:30 Morphine Sulfate (morphine) 2 mg Q2H PRN IV SEVERE PAIN LEVEL 7-10 Last administered on 08/30/18at 22:24; Admin Dose 2 MG; Start 08/28/18 at 09:00 Docusate Sodium (Colace Liquid Cup) 200 mg BID PRN NGT CONSTIPATION; Start 08/29/18 at 10:00 Polyethylene Glycol (Miralax) 17 gm DAILY PRN GTB CONSTIPATION; Start 08/29/18 at 10:00 Linezolid (Zyvox) 600 mg BID PO Last administered on 09/04/18 08:36; Admin Dose 600 MG; Start 08/29/18 at 13:00 Ibuprofen (Motrin) 600 mg Q6H PRN GTB MILD PAIN LEVEL 1-3 Last administered on 08/31/18 10:25; Admin Dose 600 MG; Start 08/29/18 at 15:30 Metronidazole (Flagyl) 500 mg Q8 NGT Last administered on 09/04/18 05:50; Admin Dose 500 MG; Start 08/30/18 at 14:00 Scopolamine (Transderm-Scop) 1 patch Q72H TRANSDERM Last administered on 09/03/18 11:19; Admin Dose 1 PATCH; Start 08/31/18 at 11:30 Methylprednisolone Sodium Succinate (Solu-Medrol) 40 mg DAILY IV Last ad ministered on 09/04/18 08:35; Admin Dose 40 MG; Start 09/02/18 at 09:00 Furosemide (Lasix) 40 mg DAILY@0600 IV Last administered on 09/03/18 06:44; Admin Dose 40 MG; Start 09/01/18 at 11:30 Quetiapine Fumarate (Seroquel) 50 mg DAILY GTB Last administered on 09/04/18 08:36; Admin Dose 50 MG; Start 09/02/18 at 09:00 Colistimethate Sodium (Colistin Inhal) 75 mg ONCE ONCE NEB ; Start 09/04/18 at 10:00; Stop 09/04/18 at 10:01; Status TATI PENA Sep 04, 2018 09:47
[2018-09-04] MEDS ORDERED: COLISTIMETHATE (25 MG/ML INHAL SYG) NEB ONE (11:00)
--- NOTE | 2018-09-04 11:23 | CONS ---
Consult Date/Type/Reason Admit Date/Time Aug 08, 2018 at 17:18 Initial Consult Date 08/09/18 Type of Consult Pulmonary Date/Time of Note DATE: 09/04/18 TIME: 11:22 Subjective Patient continues to have significant secretions requiring pulmonary toilet. Low-grade temperature also. Tube feeding as tolerated. Objective Vital Signs Date Temp Pulse Resp B/P (MAP) Pulse Ox O2 O2 Flow FiO2 Time Delivery Rate 09/04/18 133 21 128/82 98 Trach 10:00 (97) Collar 09/04/18 99.6 09:00 09/04/18 10.0 40 07:45 Intake and Output 09/03/18 09/03/18 09/04/18 1515:00 23:00 07:00 IntakeIntake Total 520 ml 720 ml 730 ml OutputOutput Total 1050 ml 450 ml 255 ml BalanceBalance -530 ml 270 ml 475 ml Exam GENERAL: Obese young gentleman tracheostomy on cool aerosol VITAL SIGNS: per chart NECK: Supple. No JVD or lymphadenopathy. CARDIAC EXAM: S1, S2. No added sounds or murmurs. CHEST: clear bilaterally, No added sounds, rales or wheezes ABDOMEN: Soft, nontender. No guarding or rebound. EXTREMITIES: No cyanosis, clubbing, edema +2 NEUROLOGIC: Generalized weakness. No focal deficits. Vent Setting Ventilator Support Mode: CPAP, PS Fraction of Inspired Oxygen pe: 40 Positive End Expiratory Pressu: 8.0 Results/Medications Result Diagram: 09/04/18 0448 09/04/18 0448 Results 24 hrs Laboratory Tests Test 09/04/18 04:48 09/04/18 08:00 White Blood Count 12.0 #H Red Blood Count 5.04 Hemoglobin 11.7 L Hematocrit 42.8 Mean Corpuscular Volume 84.9 Mean Corpuscular Hemoglobin 23.2 L Mean Corpuscular Hemoglobin Concent 27.3 L Red Cell Distribution Width 19.7 H Platelet Count 168 Mean Platelet Volume Immature Granulocytes % 2.800 H Neutrophils % 83.3 H Segmented Neutrophils % (Manual) 64 Band Neutrophils % (Manual) 9 H Lymphocytes % 5.2 L Lymphocytes % (Manual) 18 Reactive Lymphocytes % (Manual) 2 H Monocytes % 8.1 Monocytes % (Manual) 3 Eosinophils % 0.0 Basophils % 0.6 Myelocytes % (Manual) 2 H Promyelocytes % (Manual) 2 H Nucleated Red Blood Cells % 0.3 H Immature Granulocytes # 0.340 H Neutrophils # 10.0 H Neutrophils # (Manual) 7.8 H Band Neutrophils # 1.0 H Lymphocytes (Manual) 2.1 Lymphocytes # 0.6 L Reactive Lymphocytes # 0.2 H Monocytes # 1.0 H Monocytes # (Manual) 0.3 Eosinophils # 0.0 Basophils # 0.1 Myelocytes # 0.2 H Promyelocytes # 0.2 H Nucleated Red Blood Cells # 0.0 Platelet Estimate NORMAL Giant Platelets 1 H Poikilocytosis 3+ Anisocytosis 2+ Microcytosis 2+ Macrocytosis 1+ Target Cells 1+ Sodium Level 144 Potassium Level 3.8 Chloride Level 92 L Carbon Dioxide Level 36 H Anion Gap 16 H Blood Urea Nitrogen 70 H Creatinine 1.55 H Est Glomerular Filtrat Rate mL/min 52 L Glucose Level 178 Calcium Level 10.9 H Phosphorus Level 5.2 H Magnesium Level 2.4 Blood Gas Specimen Source Blood arterial Arterial Blood Date Drawn 09/04/2018 8:22:03 AM Arterial Blood pH (Temp corrected) 7.431 Arterial Blood pCO2 (Temp correct) 56.0 H Arterial Blood pO2 (Temp corrected) 101.8 H Arterial Blood HCO3 36.4 H Arterial Blood Base Excess 10.2 H Arterial Blood Oxygen Saturation 97.8 James Test ACCEPTAB Arterial Blood Gas Puncture Site Right Radial Arterial Blood Carboxyhemoglobin 0.7 Arterial Blood Methemoglobin 0.3 Blood Gas A-a O2 Differential 191.7 H Oxyhemoglobin Percent 96.8 Blood Gas Temperature 37.0 Blood Gas Modality TRACH COLLAR FiO2 50.0 Blood Gas Notified Whom Blood Gas Notified Time 09/04/2018 8:33:18 AM Medications Current Medications IV Flush (NS 3 ml) 3 ml PER PROTOCOL IV ; Start 08/08/18 at 17:30 Ondansetron HCl (Zofran Inj) 4 mg Q6H PRN IV NAUSEA; Start 08/08/18 at 17:30 Haloperidol (Haldol) 5 mg PRN PRN IM AGGITATED Last administered on 08/16/18at 08:32; Admin Dose 5 MG; Start 08/08/18 at 22:00 Fentanyl 100 ml @ 2.5 mls/hr TITRATE IV Last administered on 08/28/18at 00:37; Admin Dose 8 MLS/HR; Start 08/09/18 at 06:30 Enoxaparin Sodium (Lovenox) 40 mg Q12H SC Last administered on 09/04/18 08:51; Admin Dose 40 MG; Start 08/09/18 at 21:00 Famotidine (Pepcid) 20 mg BID GTB Last administered on 09/04/18 08:36; Admin Dose 20 MG; Start 08/12/18 at 09:00 Midazolam HCl 50 ml @ 1 mls/hr TITRATE IV Last administered on 08/25/18 11:49; Admin Dose 4 MLS/HR; Start 08/13/18 at 08:30 Naphazoline HCl (Clear Eyes / Naphcon) 2 drop QID BOTH EYES Last administered on 09/04/18 08:36; Admin Dose 2 DROP; Start 08/16/18 at 18:14 Acetaminophen (Tylenol Liquid) 650 mg Q6H PRN NGT MILD PAIN(1-3)OR ELEVATED TEMP Last administered on 08/31/18 07:02; Admin Dose 650 MG; Start 08/17/18 at 00:57 Levalbuterol (Xopenex Hfa) 4 puff Q4H RESP THERAPY PRN INH SHORTNESS OF BREATH Last administered on 08/27/18 05:08; Admin Dose 4 PUFF; Start 08/26/18 at 20:00 Ipratropium [place] (Atrovent Hfa) 2 puff QID RESP THERAPY PRN INH SHORTNESS OF BREATH Last administered on 08/27/18 05:08; Admin Dose 2 PUFF; Start 08/26/18 at 20:00 Metoclopramide HCl (Reglan) 5 mg BID IV Last administered on 09/04/18 08:35; Admin Dose 5 MG; Start 08/27/18 at 21:00 Lorazepam (Ativan) 1 mg Q6H PRN IV AGITATION Last administered on 09/04/18 09:17; Admin Dose 1 MG; Start 08/28/18 at 02:30 Morphine Sulfate (morphine) 2 mg Q2H PRN IV SEVERE PAIN LEVEL 7-10 Last administered on 08/30/18 22:24; Admin Dose 2 MG; Start 08/28/18 at 09:00 Docusate Sodium (Colace Liquid Cup) 200 mg BID PRN NGT CONSTIPATION; Start 08/29/18 at 10:00 Polyethylene Glycol (Miralax) 17 gm DAILY PRN GTB CONSTIPATION; Start 08/29/18 at 10:00 Ibuprofen (Motrin) 600 mg Q6H PRN GTB MILD PAIN LEVEL 1-3 Last administered on 08/31/18at 10:25; Admin Dose 600 MG; Start 08/29/18 at 15:30 Metronidazole (Flagyl) 500 mg Q8 NGT Last administered on 09/04/18at 05:50; Admin Dose 500 MG; Start 08/30/18 at 14:00 Scopolamine (Transderm-Scop) 1 patch Q72H TRANSDERM Last administered on 09/03/18at 11:19; Admin Dose 1 PATCH; Start 08/31/18 at 11:30 Methylprednisolone Sodium Succinate (Solu-Medrol) 40 mg DAILY IV Last administered on 09/04/18at 08:35; Admin Dose 40 MG; Start 09/02/18 at 09:00 Quetiapine Fumarate (Seroquel) 50 mg DAILY GTB Last administered on 09/04/18at 08:36; Admin Dose 50 MG; Start 09/02/18 at 09:00 Colistimethate Sodium (Colistin Inhal) 75 mg BID RESP THERAPY NEB ; Start 09/04/18 at 20:00 Assessment/Plan Hospital Course (Demo Recall) IMP: 1. Acute on chronic hypoxemic and hypercapnic respiratory failure, failed multiple weaning trials status post tracheostomy. Significant secretions, 2. Component of diastolic dysfunction 3. History of obesity hypoventilation syndrome and probable obstructive sleep apnea 4. Leukocytosis With ongoing fevers and persistent diarrhea. RECS: 1. Continue trach collar as tolerated tracheostomy site care, 2. Continue ID recommendations 3. Tube feeding as tolerated 4. Physical therapy encourage mobility 5. TF as tolerated 40 min cc time Discussed with nursing staff attempted to transition to hospital bed that would allow the patient to be more upright. JULIETH PUENTE MD, [facility] Sep 04, 2018 11:23
--- NOTE | 2018-09-04 18:15 | PN ---
Date/Time of Note Date/Time of Note DATE: 09/04/18 TIME: 18:14 Assessment/Plan Lines/Catheters IV Catheter Type (from Nrsg): Peripheral IV Santiago in Place (from Nrsg): Yes Assessment/Plan Assessment/Plan Respiratory failure Status post trach Patient improving Will remove sutures Subjective 24 Hr Interval Summary Constitutional: improved Pain Control: mild Exam/Review of Systems Vital Signs Vitals Vital Signs Date Temp Pulse Resp B/P (MAP) Pulse Ox O2 O2 Flow FiO2 Time Delivery Rate 09/04/18 112 24 118/65 100 Trach 18:00 (82) Collar 09/04/18 98.0 17:00 09/04/18 10.0 40 15:10 Intake and Output 09/03/18 09/03/18 09/04/18 1515:00 23:00 07:00 IntakeIntake Total 520 ml 720 ml 730 ml OutputOutput Total 1050 ml 450 ml 255 ml BalanceBalance -530 ml 270 ml 475 ml Exam Eyes: nl conjunctiva, EOMI, nl lids, nl sclera ENMT: nl external ears & nose, nl lips & teeth, nl nasal mucosa & septum, mucosa pink and moist Neck: supple, non-tender Respiratory: clear to auscultation, normal air movement Cardiovascular: regular rate and rhythm, nl pulses Gastrointestinal: soft, nl liver, spleen, non-tender Results Result Diagram: 09/04/188 09/04/18447 TIMMY DALAL MD Sep 04, 2018 18:15
[2018-09-04] MEDS: COLISTIMETHATE (25 MG/ML INHAL SYG) NEB SCH (20:12)
[2018-09-04] MEDS: DOCUSATE SODIUM 10 MG/ML (10ML CUP) NGT SCH (21:17)
[2018-09-05] VITALS (28 sets, daily range): BP systolic 85–143; BP diastolic 45–100; PULSE 106–147; RESP 16–39
[2018-09-05] MEDS: metroNIDAZOLE 500 MG TAB NGT SCH ×3 (06:35→22:00)
[2018-09-05] MEDS: LORAZEPAM 2 MG INJ IV PRN ×2 (07:42→16:09)
[2018-09-05] MEDS: METHYLPREDNISOLONE 40 MG INJ IV SCH (08:14)
[2018-09-05] MEDS: DOCUSATE SODIUM 10 MG/ML (10ML CUP) NGT SCH ×2 (08:15→20:54)
[2018-09-05] MEDS: NAPHAZOLINE 0.012% 15 ML OPH BOTH EYES SCH ×4 (08:15→20:56)
[2018-09-05] MEDS: FAMOTIDINE 20 MG TAB GTB SCH ×2 (08:15→20:53)
[2018-09-05] MEDS: ENOXAPARIN 40 MG/0.4 ML SYG SC SCH ×2 (08:17→20:52)
[2018-09-05] MEDS: COLISTIMETHATE (25 MG/ML INHAL SYG) NEB SCH (08:50)
[2018-09-05] MEDS ORDERED: SOD CHLORIDE 0.9% 500 ML IV ONE ×2 (09:00→11:00)
[2018-09-05] MEDS ORDERED: QUETIAPINE 25 MG TAB GTB SCH (09:00)
[2018-09-05] MEDS: morphine 2 MG INJ IV PRN ×2 (09:09→17:08)
--- NOTE | 2018-09-05 10:12 | PN ---
Date/Time of Note Date/Time of Note DATE: 09/05/18 TIME: 09:56 Assessment/Plan VTE Prophylaxis Risk score (from Nsg)>0 risk: 6 SCD applied (from Nsg): Yes Pharmacological prophylaxis: LMWH Lines/Catheters IV Catheter Type (from Nrsg): Peripheral IV Urinary Cath still in place: Yes Reason Cath still needed: other (indicate) Assessment/Plan Hospital Course Subjective : fever overnight, confused remains in ICU d/t persistent amount of copious secretions requiring almost 1/2 hrly suctioning having high residuals Objective : Gen: Morbidly obese man lying in bed, opens eyes, attempts to speak Neck: Obese, trach, HEENT: [place], scleral icterus Card: distant heart sounds Pulm: distant lung sounds. coarse Abd: Morbidly obese, soft, nontender, G-tube in place Ext: Bilateral LE chronic venous stasis changes, no edema, skin discoloration Neuro: No focal deficits, generalized lethargy, can barely raise his legs from the bed, confused , pulling at lines assessment and plan: 32yo Morbidly obese male who had presented with shortness of breath currently managed as follows: 1. Hypoxic/hypercapnic respiratory failure: -Secondary to ANDREW, exacerbated by pneumonia -Intubated , status post trach 08/24 -Currently off the ventilator, remains in ICU due to requiring frequent sucti oning and copious secretions 2. Encephalopathy, tooxic metabolic, r/o hypoxic ischemic -patient remains confused intermittently, may have suffered a brain insult, unable to get MRI or CT 2/2 weight -will get neurology consult -attempted to cut back on dosing for Seroquel, but patient is still quite confused, will switch to BID dosing 3. Sepsis with Bilateral pneumonia -Cultures grew MDR Acinetobacter, now on inhaled colistin -spiking fevers again, will repeat panculture and get CXR 4. Acute renal insufficiency likely secondary to overdiuresis -lasix has been d/c -urine output is reducing, start gentle hydration -likely ATN -Nephrology consult -will also get renal USS 5. Abd distention and high residuals -agree with holding tube feeds -KUB to assess, patient is too big for CT -continue stool softeners and miralax 6. Functional dysphagia status post PEG -Secondary to trach 7.. Chronic hypochromic anemia -stable, monitor 8. Severe Obesity -high risk for skin breakdown, -controlled calories while on tube feeds 7. Debility and lethargy -PT limited by patient's mental status 8. Hyperbilirubinemia - predominantly direct, alkaline phosphatase is normal -will order liver USS and trend levels, may need GI consult if persistent Plan remains in ICU for now d/t tenuous status and requiring repeated intervention CRITICAL CARE TIME: >55 mins Addendum: Radiology called to report abnormal findings in KUB. IMPRESSION: 1. Interval removal of the enteric catheter. A gastrostomy tube and a Santiago catheter are now seen to be in place. 2. There are now air distended elongated segments of small bowel seen in the right abdomen with a lack of colonic air suspicious for small bowel obstruction. 3. There is now increased density in a paucity of air within the left abdomen raising the possibility of a mass, fluid collection or hematoma. If clinically indicated, a CT may be useful to further evaluate. Findings of small bowel obstruction with a possible mass, fluid collection, or hematoma in the left abdomen were telephoned by Wes Mccoy MD to Dr. Cardoza on 09/05/2018 and 1137 hours. Plan: -NPO -PEG to LIS -Surgical consult with Dr Bell, too heavy for CT per report -IVF with D5 1/2 -further interventions per clinical course Total care time >90mins Result Diagram: 09/05/18 0455 09/05/18 0450 Results 24hrs Laboratory Tests Test 09/05/18 04:50 09/05/18 04:55 Sodium Level 144 Potassium Level 3.8 Chloride Level 92 L Carbon Dioxide Level 35 H Anion Gap 17 H Blood Urea Nitrogen 83 H Creatinine 1.68 H Est Glomerular Filtrat Rate mL/min 47 L Glucose Level 161 Calcium Level 10.9 H Phosphorus Level 4.7 Magnesium Level 2.3 Total Bilirubin 2.9 H Direct Bilirubin 2.40 H Indirect Bilirubin 0.5 Aspartate Amino Transf (AST/SGOT) 27 Alanine Aminotransferase (ALT/SGPT) 47 Alkaline Phosphatase 85 Total Protein 7.2 Albumin 3.1 L Globulin 4.10 H Albumin/Globulin Ratio 0.75 White Blood Count 9.8 Red Blood Count 5.03 Hemoglobin 11.6 L Hematocrit 42.6 Mean Corpuscular Volume 84.7 Mean Corpuscular Hemoglobin 23.1 L Mean Corpuscular Hemoglobin Concent 27.2 L Red Cell Distribution Width 20.7 H Platelet Count 236 # Mean Platelet Volume 11.8 H Immature Granulocytes % 6.000 H Neutrophils % 75.4 Segmented Neutrophils % (Manual) 47 Band Neutrophils % (Manual) 24 H Lymphocytes % 8.5 L Lymphocytes % (Manual) 14 L Monocytes % 8.8 Monocytes % (Manual) 7 Eosinophils % 0.4 Eosinophils % (Manual) 2 Basophils % 0.9 Metamyelocytes % (manual) 3 H Myelocytes % (Manual) 1 H Promyelocytes % (Manual) 2 H Nucleated Red Blood Cells % 3 H Immature Granulocytes # 0.590 H Neutrophils # 7.4 Neutrophils # (Manual) 4.8 Band Neutrophils # 2.3 H Lymphocytes (Manual) 1.3 Lymphocytes # 0.8 Monocytes # 0.9 Monocytes # (Manual) 0.6 Eosinophils # 0.0 Basophils # 0.1 Metamyelocytes # 0.2 H Myelocytes # 0.0 Promyelocytes # 0.1 H Nucleated Red Blood Cells # 0.0 Platelet Estimate NORMAL Giant Platelets 4 H Polychromasia 1+ Hypochromasia 2+ Poikilocytosis 2+ Anisocytosis 1+ Macrocytosis 1+ Stomatocytes 1+ Exam/Review of Systems Exam Vitals Vital Signs Date Temp Pulse Resp B/P (MAP) Pulse Ox O2 O2 Flow FiO2 Time Delivery Rate 09/05/18 142 22 100 Aerosol 10.0 40 08:50 09/05/18 100/75 07:00 (83) 09/05/18 98.7 04:00 Intake and Output 09/04/18 09/04/18 09/05/18 1515:00 23:00 07:00 IntakeIntake Total 700 ml 600 ml 800 ml OutputOutput Total 360 ml 270 ml 325 ml BalanceBalance 340 ml 330 ml 475 ml Results Results 24hrs Laboratory Tests Test 09/05/18 04:50 09/05/18 04:55 Sodium Level 144 Potassium Level 3.8 Chloride Level 92 L Carbon Dioxide Level 35 H Anion Gap 17 H Blood Urea Nitrogen 83 H Creatinine 1.68 H Est Glomerular Filtrat Rate mL/min 47 L Glucose Level 161 Calcium Level 10.9 H Phosphorus Level 4.7 Magnesium Level 2.3 Total Bilirubin 2.9 H Direct Bilirubin 2.40 H Indirect Bilirubin 0.5 Aspartate Amino Transf (AST/SGOT) 27 Alanine Aminotransferase (ALT/SGPT) 47 Alkaline Phosphatase 85 Total Protein 7.2 Albumin 3.1 L Globulin 4.10 H Albumin/Globulin Ratio 0.75 White Blood Count 9.8 Red Blood Count 5.03 Hemoglobin 11.6 L Hematocrit 42.6 Mean Corpuscular Volume 84.7 Mean Corpuscular Hemoglobin 23.1 L Mean Corpuscular Hemoglobin Concent 27.2 L Red Cell Distribution Width 20.7 H Platelet Count 236 # Mean Platelet Volume 11.8 H Immature Granulocytes % 6.000 H Neutrophils % 75.4 Segmented Neutrophils % (Manual) 47 Band Neutrophils % (Manual) 24 H Lymphocytes % 8.5 L Lymphocytes % (Manual) 14 L Monocytes % 8.8 Monocytes % (Manual) 7 Eosinophils % 0.4 Eosinophils % (Manual) 2 Basophils % 0.9 Metamyelocytes % (manual) 3 H Myelocytes % (Manual) 1 H Promyelocytes % (Manual) 2 H Nucleated Red Blood Cells % 3 H Immature Granulocytes # 0.590 H Neutrophils # 7.4 Neutrophils # (Manual) 4.8 Band Neutrophils # 2.3 H Lymphocytes (Manual) 1.3 Lymphocytes # 0.8 Monocytes # 0.9 Monocytes # (Manual) 0.6 Eosinophils # 0.0 Basophils # 0.1 Metamyelocytes # 0.2 H Myelocytes # 0.0 Promyelocytes # 0.1 H Nucleated Red Blood Cells # 0.0 Platelet Estimate NORMAL Giant Platelets 4 H Polychromasia 1+ Hypochromasia 2+ Poikilocytosis 2+ Anisocytosis 1+ Macrocytosis 1+ Stomatocytes 1+ Medications Medication Current Medications IV Flush (NS 3 ml) 3 ml PER PROTOCOL IV ; Start 08/08/18 at 17:30 Ondansetron HCl (Zofran Inj) 4 mg Q6H PRN IV NAUSEA; Start 08/08/18 at 17:30 Haloperidol (Haldol) 5 mg PRN PRN IM AGGITATED Last administered on 08/16/18at 08:32; Admin Dose 5 MG; Start 08/08/18 at 22:00 Fentanyl 100 ml @ 2.5 mls/hr TITRATE IV Last administered on 08/28/18at 00:37; Admin Dose 8 MLS/HR; Start 08/09/18 at 06:30 Enoxaparin Sodium (Lovenox) 40 mg Q12H SC Last administered on 09/05/18 08:17; Admin Dose 40 MG; Start 08/09/18 at 21:00 Famotidine (Pepcid) 20 mg BID GTB Last administered on 09/05/18 08:15; Admin Dose 20 MG; Start 08/12/18 at 09:00 Midazolam HCl 50 ml @ 1 mls/hr TITRATE IV Last administered on 08/25/18 11:49; Admin Dose 4 MLS/HR; Start 08/13/18 at 08:30 Naphazoline HCl (Clear Eyes / Naphcon) 2 drop QID BOTH EYES Last administered on 09/05/18 08:15; Admin Dose 2 DROP; Start 08/16/18 at 18:14 Acetaminophen (Tylenol Liquid) 650 mg Q6H PRN NGT MILD PAIN(1-3)OR ELEVATED TEMP Last administered on 08/31/18 07:02; Admin Dose 650 MG; Start 08/17/18 at 00:57 Levalbuterol (Xopenex Hfa) 4 puff Q4H RESP THERAPY PRN INH SHORTNESS OF BREATH Last administered on 08/27/18 05:08; Admin Dose 4 PUFF; Start 08/26/18 at 20:00 Ipratropium [place] (Atrovent Hfa) 2 puff QID RESP THERAPY PRN INH SHORTNESS OF BREATH Last administered on 08/27/18 05:08; Admin Dose 2 PUFF; Start 08/26/18 at 20:00 Lorazepam (Ativan) 1 mg Q6H PRN IV AGITATION Last administered on 09/05/18 07:42; Admin Dose 1 MG; Start 08/28/18 at 02:30 Morphine Sulfate (morphine) 2 mg Q2H PRN IV SEVERE PAIN LEVEL 7-10 Last administered on 09/05/18 09:09; Admin Dose 2 MG; Start 08/28/18 at 09:00 Polyethylene Glycol (Miralax) 17 gm DAILY PRN GTB CONSTIPATION; Start 08/29/18 at 10:00 Metronidazole (Flagyl) 500 mg Q8 NGT Last administered on 09/05/18 06:35; Admin Dose 500 MG; Start 08/30/18 at 14:00 Scopolamine (Transderm-Scop) 1 patch Q72H TRANSDERM Last administered on 09/03/18at 11:19; Admin Dose 1 PATCH; Start 08/31/18 at 11:30 Methylprednisolone Sodium Succinate (Solu-Medrol) 40 mg DAILY IV Last administered on 09/05/18 08:14; Admin Dose 40 MG; Start 09/02/18 at 09:00 Colistimethate Sodium (Colistin Inhal) 75 mg BID RESP THERAPY NEB Last administered on 09/05/18at 08:50; Admin Dose 75 MG; Start 09/04/18 at 20:00 Docusate Sodium (Colace Liquid Cup) 200 mg BID NGT Last administered on 09/05/18 08:15; Admin Dose 200 MG; Start 09/04/18 at 21:00 Quetiapine Fumarate (Seroquel) 25 mg DAILY GTB Last administered on 09/05/18 08:15; Admin Dose 25 MG; Start 09/05/18 at 09:00 Sodium Chloride 500 ml @ 500 mls/hr Q1H ONCE IV Last administered on 09/05/18at 09:01; Admin Dose 500 MLS/HR; Start 09/05/18 at 09:00; Stop 09/05/18 at 09:59 TATI CARDOZA Sep 05, 2018 10:06
[2018-09-05] MEDS ORDERED: MAGNESIUM CITRATE 300 ML BTL GTB ONE (10:30)
[2018-09-05] MEDS ORDERED: SOD CHLORIDE 0.9% 1,000 ML IV SCH (10:30)
[2018-09-05] MEDS: POLYETHYLENE GLYCOL 17 GM PACKET GTB SCH (10:30)
--- NOTE | 2018-09-05 10:34 | CONS ---
Consult Date/Type/Reason Admit Date/Time Aug 08, 2018 at 17:18 Initial Consult Date 08/09/18 Type of Consult Pulmonary Date/Time of Note DATE: 09/05/18 TIME: 10:33 Subjective Still febrile with intermittent agitation. Moderate secretions. Decreased urine output this morning noted. Tachycardia worse. Objective Vital Signs Date Temp Pulse Resp B/P (MAP) Pulse Ox O2 O2 Flow FiO2 Time Delivery Rate 09/05/18 144 33 98/72 (81) 98 Trach 10:00 Collar 09/05/18 10.0 40 08:50 09/05/18 101.0 08:00 Intake and Output 09/04/18 09/04/18 09/05/18 1515:00 23:00 07:00 IntakeIntake Total 700 ml 600 ml 800 ml OutputOutput Total 360 ml 270 ml 325 ml BalanceBalance 340 ml 330 ml 475 ml Exam ENERAL: Obese young gentleman tracheostomy on cool aerosol VITAL SIGNS: per chart NECK: Supple. No JVD or lymphadenopathy. CARDIAC EXAM: S1, S2. No added sounds or murmurs. CHEST: clear bilaterally, No added sounds, rales or wheezes ABDOMEN: Soft, nontender. No guarding or rebound. EXTREMITIES: No cyanosis, clubbing, edema +2 NEUROLOGIC: Generalized weakness. No focal deficits. Vent Setting Ventilator Support Mode: CPAP, PS Fraction of Inspired Oxygen pe: 40 Positive End Expiratory Pressu: 8.0 Results/Medications Result Diagram: 09/05/18 0455 09/05/18 0450 Results 24 hrs Laboratory Tests Test 09/05/18 04:50 09/05/18 04:55 Sodium Level 144 Potassium Level 3.8 Chloride Level 92 L Carbon Dioxide Level 35 H Anion Gap 17 H Blood Urea Nitrogen 83 H Creatinine 1.68 H Est Glomerular Filtrat Rate mL/min 47 L Glucose Level 161 Calcium Level 10.9 H Phosphorus Level 4.7 Magnesium Level 2.3 Total Bilirubin 2.9 H Direct Bilirubin 2.40 H Indirect Bilirubin 0.5 Aspartate Amino Transf (AST/SGOT) 27 Alanine Aminotransferase (ALT/SGPT) 47 Alkaline Phosphatase 85 Total Protein 7.2 Albumin 3.1 L Globulin 4.10 H Albumin/Globulin Ratio 0.75 White Blood Count 9.8 Red Blood Count 5.03 Hemoglobin 11.6 L Hematocrit 42.6 Mean Corpuscular Volume 84.7 Mean Corpuscular Hemoglobin 23.1 L Mean Corpuscular Hemoglobin Concent 27.2 L Red Cell Distribution Width 20.7 H Platelet Count 236 # Mean Platelet Volume 11.8 H Immature Granulocytes % 6.000 H Neutrophils % 75.4 Segmented Neutrophils % (Manual) 47 Band Neutrophils % (Manual) 24 H Lymphocytes % 8.5 L Lymphocytes % (Manual) 14 L Monocytes % 8.8 Monocytes % (Manual) 7 Eosinophils % 0.4 Eosinophils % (Manual) 2 Basophils % 0.9 Metamyelocytes % (manual) 3 H Myelocytes % (Manual) 1 H Promyelocytes % (Manual) 2 H Nucleated Red Blood Cells % 3 H Immature Granulocytes # 0.590 H Neutrophils # 7.4 Neutrophils # (Manual) 4.8 Band Neutrophils # 2.3 H Lymphocytes (Manual) 1.3 Lymphocytes # 0.8 Monocytes # 0.9 Monocytes # (Manual) 0.6 Eosinophils # 0.0 Basophils # 0.1 Metamyelocytes # 0.2 H Myelocytes # 0.0 Promyelocytes # 0.1 H Nucleated Red Blood Cells # 0.0 Platelet Estimate NORMAL Giant Platelets 4 H Polychromasia 1+ Hypochromasia 2+ Poikilocytosis 2+ Anisocytosis 1+ Macrocytosis 1+ Stomatocytes 1+ Medications Current Medications IV Flush (NS 3 ml) 3 ml PER PROTOCOL IV ; Start 08/08/18 at 17:30 Ondansetron HCl (Zofran Inj) 4 mg Q6H PRN IV NAUSEA; Start 08/08/18 at 17:30 Haloperidol (Haldol) 5 mg PRN PRN IM AGGITATED Last administered on 08/16/18at 08:32; Admin Dose 5 MG; Start 08/08/18 at 22:00 Fentanyl 100 ml @ 2.5 mls/hr TITRATE IV Last administered on 08/28/18at 00:37; Admin Dose 8 MLS/HR; Start 08/09/18 at 06:30 Enoxaparin Sodium (Lovenox) 40 mg Q12H SC Last administered on 09/05/18at 08:17; Admin Dose 40 MG; Start 08/09/18 at 21:00 Famotidine (Pepcid) 20 mg BID GTB Last administered on 09/05/18at 08:15; Admin Dose 20 MG; Start 08/12/18 at 09:00 Midazolam HCl 50 ml @ 1 mls/hr TITRATE IV Last administered on 08/25/18 11:49; Admin Dose 4 MLS/HR; Start 08/13/18 at 08:30 Naphazoline HCl (Clear Eyes / Naphcon) 2 drop QID BOTH EYES Last administered on 09/05/18 08:15; Admin Dose 2 DROP; Start 08/16/18 at 18:14 Acetaminophen (Tylenol Liquid) 650 mg Q6H PRN NGT MILD PAIN(1-3)OR ELEVATED TEMP Last administered on 08/31/18 07:02; Admin Dose 650 MG; Start 08/17/18 at 00:57 Levalbuterol (Xopenex Hfa) 4 puff Q4H RESP THERAPY PRN INH SHORTNESS OF BREATH Last administered on 08/27/18 05:08; Admin Dose 4 PUFF; Start 08/26/18 at 20:00 Ipratropium [place] (Atrovent Hfa) 2 puff QID RESP THERAPY PRN INH SHORTNESS OF BREATH Last administered on 08/27/18 05:08; Admin Dose 2 PUFF; Start 08/26/18 at 20:00 Lorazepam (Ativan) 1 mg Q6H PRN IV AGITATION Last administered on 09/05/18 07:42; Admin Dose 1 MG; Start 08/28/18 at 02:30 Morphine Sulfate (morphine) 2 mg Q2H PRN IV SEVERE PAIN LEVEL 7-10 Last admi nistered on 09/05/18 09:09; Admin Dose 2 MG; Start 08/28/18 at 09:00 Metronidazole (Flagyl) 500 mg Q8 NGT Last administered on 09/05/18 06:35; Admin Dose 500 MG; Start 08/30/18 at 14:00 Scopolamine (Transderm-Scop) 1 patch Q72H TRANSDERM Last administered on 09/03/18 11:19; Admin Dose 1 PATCH; Start 08/31/18 at 11:30 Methylprednisolone Sodium Succinate (Solu-Medrol) 40 mg DAILY IV Last admin istered on 09/05/18 08:14; Admin Dose 40 MG; Start 09/02/18 at 09:00 Colistimethate Sodium (Colistin Inhal) 75 mg BID RESP THERAPY NEB Last administered on 2/19/19at 08:50; Admin Dose 75 MG; Start 09/04/18 at 20:00 Docusate Sodium (Colace Liquid Cup) 200 mg BID NGT Last administered on 09/05/18at 08:15; Admin Dose 200 MG; Start 09/04/18 at 21:00 Polyethylene Glycol (Miralax) 17 gm DAILY GTB ; Start 09/05/18 at 10:30 Quetiapine Fumarate (Seroquel) 25 mg BID GTB ; Start 09/05/18 at 21:00 Sodium Chloride 1,000 ml @ 75 mls/hr [id number] IV ; Start 09/05/18 at 10:30; Stop 09/06/18 at 13:09 Assessment/Plan Hospital Course (Demo Recall) IMP: 1. Acute on chronic hypoxemic and hypercapnic respiratory failure, failed multiple weaning trials status post tracheostomy. Significant secretions, 2. Component of diastolic dysfunction 3. History of obesity hypoventilation syndrome and probable obstructive sleep apnea 4. Leukocytosis With ongoing fevers and persistent diarrhea. RECS: 1. Continue trach collar as tolerated tracheostomy site care, 2. Continue ID recommendations 3. Tube feeding as tolerated 4. Physical therapy encourage mobility 5. TF as tolerated 6. Fluid challenge for tachycardia and worsening renal insufficiency agree with stopping diuretics 40 min cc time JULIETH PUENTE MD, [facility] Sep 05, 2018 10:34
[2018-09-05] MEDS: HALOPERIDOL 5 MG INJ IM PRN ×2 (10:40→20:45)
[2018-09-05] MEDS: ACETAMINOPHEN 650MG/20.3ML CUP NGT PRN ×2 (10:42→23:17)
--- NOTE | 2018-09-05 11:45 | CONS ---
Assessment/Plan Assessment/Plan Hospital Course (Demo Recall) ID PROGRESS NOTE CURRENT ABX: DAY # 28=> ABX tapered to Colistin INH + Flagyl => START FORTAZ + TYGACIL s/p ABX DE-ESCALATION 09/04 Zyvox + Colistin Diflucan -> DC'd s/p Vanco IV/Zosyn 09/05/18 0455 09/05/18 0450 24H INTERVAL SUMMARY * Tmax 101.0 today w/ tachycardia HR 144 --> Patient is not tolerating ABX taper yesterday due to MARTINE on Colistin * WBC improved -- S.Creatinine elevated today * Lethartic -- awakens easilly, NAD, no c/o - Super morbid obese M * WBC up down today --- yesterday was elevated - patient on IV steroids * Chest x-ray revealed worsening patchy bilateral upper lobe and lower lobe infiltrates * 09/01/18 CXR: Worsening patchy bilateral upper lobe and lower lobe infiltrates and atelectatic changes.Mild cardiomegaly.No other significant change. MICRO/OTHER * Blood cultures repeated on August 29 negative a culture of the tip of the PICC revealed no growth sputum culture growing gram-negative rods * 08/30/18 BCx (-) * 08/29/18 PICC Tip (-) * 08/29/18 BCx (-) * 08/29/18 RESP CX: RESPIRATORY CULTURE Final Organism 1 ACINETOBACTER BAUMANNII QUANTITY 1+ A.BAUMANNI A.BAUMANNI M.I.C. RX M.I.C. RX --------- --- --------- --- AMIKACIN R CEFEPIME >=64 R CEFTAZIDIME 16 I CIPROFLOXACIN >=4 R GENTAMICIN >=16 R LEVOFLOXACIN >=8 R MEROPENEM >32 R TOBRAMYCIN >=16 R TRIMETHOPRIM/SULFAMETHOXAZOLE >=320 R PIPERACILLIN/TAZOBACTAM >=128 R * 08/26/18 (-)C.Diff * 08/26/18 BCX (+) Cons BLOOD CULTURE Final BCULT GRAM BOTTLE 1 Gram positive cocci in clusters 1 of 2 bottles . seen on gram stain of the broth Organism 1 COAGULASE NEGATIVE STAPH * 08/16/18 Respiratory Cx (+)ACBA = MDRO * 08/09/18 BRONCH (-) * 08/08/18 (-)MRSA, (-)Influenza A/B, (-)UTI * 08/08/18 BCx (-) * PHYSICAL EXAMINATION: GENERAL: Non-communicative, super morbid obese M, orally intubated, sedated on the Vent, looks comfortable, NAD HEENT: AT, NC, anicteric NECK: Supple, (+)Trach in place CHEST: Equal chest rise bilaterally, without dyspnea on observation = Vented HEART: Pulse RRR ABDOMEN: Soft / NT EXTREMITIES: Warm, dry SKIN: No rash, no diaphoresis, multiple Tattoos ID ASSESSMENT 32 yo Super Morbid Obese M admit with: 1. Sepsis w/Fevers - MULTIFACTORIAL ETIOLOGY * HCAP superimposed on probable ASP PNA * S/P PICC Line Sepsis -- BCx (+) opportunistic CoNS -- PICC Line DC'd 08/29/18 2. Leukocytosis - partial IV steroids demargination 3. PNA -- ASP PNA risk factors * 08/09/18 BRONCH (-) 4. Acute hypoxic respiratory failure => s/p Trach placement 5. Obstructive Sleep Apnea/Obesity hypoventilation syndrome 6. 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 Fungal dermatomycosis -- groin/ABD folds 8. Diarrhea = ABX associated w/(-)C.Diff toxin (-)MRSA Nares ABX ALLERGIES: KNDA INVASIVES: PIV, Trach PEG Santiago catheter CURRENT ABX: DAY #28=>=> START FORTAZ + TYGACIL + Colistin INH + Flagyl Zyvox + Colistin + Flagyl + Diflucan s/p Vanco IV/Zosyn ID RECOMMENDATIONS/PLAN: 1. Patient did not tolerate ABX de-escalation -- now with MARTINE on prior Colistin IV 2. START TYGACIL + Antipseudomonal FORTAZ for ACBA + HCAP == see how he responds * It takes 48H for Tygacil to penetrate the tissues -- if he responds will DC Flagyl in 48H 3. LITERATURE REVIEW [facility] J. 2011Mar 18; 53(5): 142227. Published online 2011Feb 08. doi: [id number] PMCID: [id number] PMID: [id number] Clinical Outcomes of Tigecycline in the Treatment of Multidrug-Resistant Acin etobacter baumannii Infection Harsh Cohen, Stella Gordon, Patel Flores, Se Shane Flores, Lizandro Gordon, Eli Cabrera, and Nathaniel Rubalcava This article has been cited by other articles in PMC. Go to: Abstract Purpose Acinetobacter baumannii (A. baumannii) has emerged as a major cause of nosocom ial pneumonia and sepsis in seriously ill patients. Multidrug-resistant A. baumannii (MDRAB) is increasing in frequency, and the management of it's infections is consequently difficult. Therefore, tigecycline is considered to be the drug of choice for MDRAB treatment. The aim of our study was to evaluate the microbiological eradication and clinical effectiveness of tigecycline against MDRAB in seriously ill patients, including patients with ventilator-associated pneumonia (VAP). Materials and Methods We conducted a retrospective study including patients with A. baumannii infections who were treated with tigecycline between October 16, 2008 and October 15, 2009. We treated 27 patients with tigecycline for MDRAB infections. Results The mean age of patients was 66.2 years, and 20 (74.1%) patients were male. The median length of stay at hospital was 74.6 days. MDRAB was eradicated from the site of infection in 23 cases (85.2%), however, only 17 cases (63.0%) showed positive clinical responses. Overall, an in-hospital mortality rate of 51.9% was observed, and 4 cases of were attributable to sepsis. The combination therapy showed better clinical and microbial success rates than the monotherapy without significant difference. Conclusion We observed the relatively low clinical success rate although the microbial eradication rate was high, probably due to superinfections in VAP and troy teremia. We suggest that clinicians should limit tigecycline monotherapy for MDRAB infection in critically ill patients, until large controlled clinical trials should be conducted. In conclusion, we examined the clinical and microbial efficacy of tigecycline for MDRAB infection including the isolates that were resistant to carbapenem and/or colistin, and observed a relatively low clinical success rate although the microbial eradication rate was high, probably due to superinfections in VAP and bacteremia. Although there was no significant difference between monotherapy and combination therapy groups, the combination therapy group showed better clinical and microbial success rates. We attribute the benefits from combination therapy to acquired resistance to tigecycline and superinfections with intrinsically resistant pathogens to tigecycline. Regarding the lack of data on tigecycline in the treatment of critically ill patients with MDRAB infection, we suggest that clinicians should limit tigecycline monotherapy for MDRAB infection to critically ill patients and consider the combination with anti-pseudomonal agent, while making reference to drug susceptibility test, until large contro lled clinical trials should be conducted. J Antimicrob Chemother. 2008 [place];62(1):45-55. doi: 10.1093/rocky/vuc402. Epub 2007Nov 08. Tigecycline for the treatment of multidrug-resistant (including carbapenem- resistant) Acinetobacter infections: a review of the scientific evidence. Cesar JENNINGS1, Estelle T, Estelle I, Sejal BUTTERFIELD. Author information Abstract OBJECTIVES: New antibacterial agents are required for the treatment of infections caused by multidrug-resistant (MDR) Acinetobacter spp. Whether tigecycline constitutes an effective treatment option or not, is not well established. We sought to evalu ate the available evidence regarding the microbiological activity and clinical effectiveness of tigecycline for MDR (including the subset of carbapenem- resistant) Acinetobacter spp. METHODS: We searched PubMed for relevant articles and extracted/evaluated the available evidence. RESULTS: We identified 22 microbiological studies reporting data for 2384 Acinetobacter spp. (1906 Acinetobacter baumannii). Susceptibility of at least 90% of the Acinetobacter isolates to tigecycline (with an JULITO breakpoint of susceptibility < or =2 mg/L) was noted in 9/18 studies reporting data on MDR Acinetobacter and in 7/15 studies reporting specific data on carbapenem-resistant Acinetobacter. In an additional study reporting data for both resistance categories, adequate susceptibility of Acinetobacter spp. was observed by one (broth microdilution) of the methods employed. The effectiveness of tigecycline for MDR Acinetobacter infections was evaluated in eight identified clinical studies, reporting retro spective data regarding 42 severely ill patients, among whom 31 had respiratory tract infection (in 4 cases with secondary bacteraemia) and 4 had bacteraemia. Tigecycline therapy (in combination with other antibiotics in 28 patients) was effective in 32/42 cases. In three cases, resistance to tigecycline developed during treatment. CONCLUSIONS: Tigecycline showed considerable, though not consistent, antimicrobial activity against MDR (including carbapenem-resistant) Acinetobacter spp. However, data to support its clinical use, particularly for ventilator-associated pneumonia or bacteraemia, caused by these pathogens, are still limited. TRIAL REGISTRATION: ClinicalTrials.gov [id number]. PMID: [id number] DOI: 10.1093/rocky/ash006 [Indexed for MEDLINE] Consultation Date/Type/Reason Admit Date/Time Aug 08, 2018 at 17:18 Initial Consult Date 08/09/18 Date/Time of Note DATE: 09/05/18 TIME: 11:24 Exam/Review of Systems Exam Vitals Vital Signs Date Temp Pulse Resp B/P (MAP) Pulse Ox O2 O2 Flow FiO2 Time Delivery Rate 09/05/18 101.0 10:42 09/05/18 144 33 98/72 (81) 98 Trach 10:00 Collar 09/05/18 10.0 40 08:50 Intake and Output 09/04/18 09/04/18 09/05/18 1515:00 23:00 07:00 IntakeIntake Total 700 ml 600 ml 800 ml OutputOutput Total 360 ml 270 ml 325 ml BalanceBalance 340 ml 330 ml 475 ml Results Result Diagram: 09/05/18 0455 09/05/18 0450 Results 24hrs Laboratory Tests Test 09/05/18 04:50 09/05/18 04:55 Sodium Level 144 Potassium Level 3.8 Chloride Level 92 L Carbon Dioxide Level 35 H Anion Gap 17 H Blood Urea Nitrogen 83 H Creatinine 1.68 H Est Glomerular Filtrat Rate mL/min 47 L Glucose Level 161 Calcium Level 10.9 H Phosphorus Level 4.7 Magnesium Level 2.3 Total Bilirubin 2.9 H Direct Bilirubin 2.40 H Indirect Bilirubin 0.5 Aspartate Amino Transf (AST/SGOT) 27 Alanine Aminotransferase (ALT/SGPT) 47 Alkaline Phosphatase 85 Total Protein 7.2 Albumin 3.1 L Globulin 4.10 H Albumin/Globulin Ratio 0.75 White Blood Count 9.8 Red Blood Count 5.03 Hemoglobin 11.6 L Hematocrit 42.6 Mean Corpuscular Volume 84.7 Mean Corpuscular Hemoglobin 23.1 L Mean Corpuscular Hemoglobin Concent 27.2 L Red Cell Distribution Width 20.7 H Platelet Count 236 # Mean Platelet Volume 11.8 H Immature Granulocytes % 6.000 H Neutrophils % 75.4 Segmented Neutrophils % (Manual) 47 Band Neutrophils % (Manual) 24 H Lymphocytes % 8.5 L Lymphocytes % (Manual) 14 L Monocytes % 8.8 Monocytes % (Manual) 7 Eosinophils % 0.4 Eosinophils % (Manual) 2 Basophils % 0.9 Metamyelocytes % (manual) 3 H Myelocytes % (Manual) 1 H Promyelocytes % (Manual) 2 H Nucleated Red Blood Cells % 3 H Immature Granulocytes # 0.590 H Neutrophils # 7.4 Neutrophils # (Manual) 4.8 Band Neutrophils # 2.3 H Lymphocytes (Manual) 1.3 Lymphocytes # 0.8 Monocytes # 0.9 Monocytes # (Manual) 0.6 Eosinophils # 0.0 Basophils # 0.1 Metamyelocytes # 0.2 H Myelocytes # 0.0 Promyelocytes # 0.1 H Nucleated Red Blood Cells # 0.0 Platelet Estimate NORMAL Giant Platelets 4 H Polychromasia 1+ Hypochromasia 2+ Poikilocytosis 2+ Anisocytosis 1+ Macrocytosis 1+ Stomatocytes 1+ Medications Medication Current Medications IV Flush (NS 3 ml) 3 ml PER PROTOCOL IV ; Start 08/08/18 at 17:30 Ondansetron HCl (Zofran Inj) 4 mg Q6H PRN IV NAUSEA; Start 1/22/19 at 17:30 Haloperidol (Haldol) 5 mg PRN PRN IM AGGITATED Last administered on 09/05/18 10:40; Admin Dose 5 MG; Start 08/08/18 at 22:00 Fentanyl 100 ml @ 2.5 mls/hr TITRATE IV Last administered on 08/28/18 00:37; Admin Dose 8 MLS/HR; Start 08/09/18 at 06:30 Enoxaparin Sodium (Lovenox) 40 mg Q12H SC Last administered on 09/05/18 08:17; Admin Dose 40 MG; Start 08/09/18 at 21:00 Famotidine (Pepcid) 20 mg BID GTB Last administered on 09/05/18 08:15; Admin Dose 20 MG; Start 08/12/18 at 09:00 Midazolam HCl 50 ml @ 1 mls/hr TITRATE IV Last administered on 08/25/18 11:49; Admin Dose 4 MLS/HR; Start 08/13/18 at 08:30 Naphazoline HCl (Clear Eyes / Naphcon) 2 drop QID BOTH EYES Last administered on 09/05/18 08:15; Admin Dose 2 DROP; Start 08/16/18 at 18:14 Acetaminophen (Tylenol Liquid) 650 mg Q6H PRN NGT MILD PAIN(1-3)OR ELEVATED TEMP Last administered on 09/05/18 10:42; Admin Dose 650 MG; Start 08/17/18 at 00:57 Levalbuterol (Xopenex Hfa) 4 puff Q4H RESP THERAPY PRN INH SHORTNESS OF BREATH Last administered on 08/27/18 05:08; Admin Dose 4 PUFF; Start 08/26/18 at 20:00 Ipratropium [place] (Atrovent Hfa) 2 puff QID RESP THERAPY PRN INH SHORTNESS OF BREATH Last administered on 08/27/18 05:08; Admin Dose 2 PUFF; Start 08/26/18 at 20:00 Lorazepam (Ativan) 1 mg Q6H PRN IV AGITATION Last administered on 09/05/18 07:42; Admin Dose 1 MG; Start 08/28/18 at 02:30 Morphine Sulfate (morphine) 2 mg Q2H PRN IV SEVERE PAIN LEVEL 7-10 Last administered on 09/05/18 09:09; Admin Dose 2 MG; Start 08/28/18 at 09:00 Metronidazole (Flagyl) 500 mg Q8 NGT Last administered on 09/05/18 06:35; Admin Dose 500 MG; Start 08/30/18 at 14:00 Scopolamine (Transderm-Scop) 1 patch Q72H TRANSDERM Last administered on 09/03/18 11:19; Admin Dose 1 PATCH; Start 08/31/18 at 11:30 Methylprednisolone Sodium Succinate (Solu-Medrol) 40 mg DAILY IV Last administered on 09/05/18 08:14; Admin Dose 40 MG; Start 09/02/18 at 09:00 Colistimethate Sodium (Colistin Inhal) 75 mg BID RESP THERAPY NEB Last administered on 09/05/18 08:50; Admin Dose 75 MG; Start 09/04/18 at 20:00 Docusate Sodium (Colace Liquid Cup) 200 mg BID NGT Last administered on 09/05/18 08:15; Admin Dose 200 MG; Start 09/04/18 at 21:00 Polyethylene Glycol (Miralax) 17 gm DAILY GTB ; Start 09/05/18 at 10:30 Quetiapine Fumarate (Seroquel) 25 mg BID GTB ; Start 09/05/18 at 21:00 Sodium Chloride 1,000 ml @ 75 mls/hr [id number] IV ; Start 09/05/18 at 10:30; Stop 09/06/18 at 13:09 Sodium Chloride 500 ml @ 500 mls/hr Q1H ONCE IV Last administered on 09/05/18at 11:10; Admin Dose 500 MLS/HR; Start 09/05/18 at 11:00; Stop 09/05/18 at 11:59 GARCÍA JOHNSON NP Sep 05, 2018 11:35
[2018-09-05] MEDS ORDERED: METOPROLOL 5 MG INJ IV ONE (12:30)
[2018-09-05] MEDS ORDERED: TIGECYCLINE 100 MG in SOD CHLORIDE 0.9% 100 ML IVPB ONE (13:00)
[2018-09-05] MEDS: DEXTROSE 5%-0.45% NACL 1,000 ML IV SCH ×2 (13:28→21:39)
[2018-09-05] MEDS: CEFTAZIDIME 2GM/50 ML (PMX) 50 ML IVPB SCH ×2 (14:25→22:04)
[2018-09-05] MEDS ORDERED: SOD CHLORIDE 0.9% 250 ML IV ONE (14:30)
--- NOTE | 2018-09-05 16:56 | CONS ---
Assessment/Plan Assessment/Plan Hospital Course 32 yo morbidly obese male with multiple comorbidities who is admitted to the [facility] ICU for management of acute respiratory failure...now s/p trach He is noted to be protractedly encephalopathic, for which neurology is consulted. PNA+ MARTINE worsening On daily iv steroids, which likely precipitate/exacerbate psychosis Receiving multiple psychotropics.. Most clinically consistent with an acute and multifactorial toxic-metabolic encephalopathy. 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 Patient's body habitus is reportedly not amendable to neuroimaging P: [place] as necessary Wean steroids as soon as able Agree w/ low dose seroquel in the short-term, to be titrated to effect PT/OT/ST when able to participate Other medical management per primary Will follow clinically Consultation Date/Type/Reason Admit Date/Time Aug 08, 2018 at 17:18 Type of Consult Neurology Reason for Consultation encephalopathy Requesting Provider: TATI CARDOZA Date/Time of Note DATE: 09/05/18 TIME: 16:56 Hx of Present Illness 32 yo M with hx of morbid obesity, HTN, COPD, and other comorbidities who initially presented to the ED with cough, SOB. Now s/p trach on 08/25. It is elsewhere noted: Mr. Beebe is a morbidly obese man with ANDREW/OHS who presents with cough and shortness of breath. Most of this history taken from ED staff and patient's family. patient is minimally responsive. He was hospitalized here in February and Jun 2018 both times for severe hypercapnia which improved after a few days of BiPAP. [employer] won't pay for a BiPAP machine at home unless he gets a sleep study which he hasn't been able to do. So about a week ago a family friend gave him a used BiPAP machine which he has been using every night but the mask is too small. 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 About 2 days ago he developed cough productive of sputum. No fevers, no chills. Today he was unable to catch his breath at rest and so presented to the ED. He walked into the ED saturating 80% on room air and was placed on BiPAP at 100% FiO2. Also elevated temp to 100.0, tachy to 121. WBC was 16.1 and CXR showed multifocal patchy opacities. Subjective hx not possible: pt non-verbal Exam/Review of Systems Exam Vitals Vital Signs Date Temp Pulse Resp B/P (MAP) Pulse Ox O2 O2 Flow FiO2 Time Delivery Rate 09/05/18 98.8 133 32 100/67 96 Trach 16:00 (78) Collar 09/05/18 10.0 40 08:50 Intake and Output 09/04/18 09/04/18 09/05/18 1515:00 23:00 07:00 IntakeIntake Total 700 ml 600 ml 800 ml OutputOutput Total 360 ml 270 ml 325 ml BalanceBalance 340 ml 330 ml 475 ml Exam PE: Gen Appearance: Anxious HEENT: Has trach Cardiovascular: Regular rate Abdomen: Soft; obtunded, has PEG Extremities: Dry NE: The patient was awake, alert, though nonverbal, d/t trach. Attempts to mouth words. Follows simple axial and appendicular commands. Cranial nerve examination was limited by mental status. Pupils were equal and reactive to light. There was no afferent pupillary defect. Funduscopic examination was limited. Face was grossly symmetric, w/ present corneal and cough reflexes. Tone was normal. Muscle bulk was normal. I did not see fasciculations. The patient was spontaneously moving his upper extremities and his feet; it appears that he was trying to move his lower extremities but had difficulty d/t body habitus. Coordination and gait testing was limited by mental status. Arm and leg reflexes were within normal limits and symmetric. Grimm's sign was absent. Plantar responses were flexor. Results Result Diagram: 09/05/18 0455 09/05/18 045 Results 24hrs Laboratory Tests Test 09/05/18 04:50 09/05/18 04:55 Sodium Level 144 Potassium Level 3.8 Chloride Level 92 L Carbon Dioxide Level 35 H Anion Gap 17 H Blood Urea Nitrogen 83 H Creatinine 1.68 H Est Glomerular Filtrat Rate mL/min 47 L Glucose Level 161 Calcium Level 10.9 H Phosphorus Level 4.7 Magnesium Level 2.3 Total Bilirubin 2.9 H Direct Bilirubin 2.40 H Indirect Bilirubin 0.5 Aspartate Amino Transf (AST/SGOT) 27 Alanine Aminotransferase (ALT/SGPT) 47 Alkaline Phosphatase 85 Total Protein 7.2 Albumin 3.1 L Globulin 4.10 H Albumin/Globulin Ratio 0.75 White Blood Count 9.8 Red Blood Count 5.03 Hemoglobin 11.6 L Hematocrit 42.6 Mean Corpuscular Volume 84.7 Mean Corpuscular Hemoglobin 23.1 L Mean Corpuscular Hemoglobin Concent 27.2 L Red Cell Distribution Width 20.7 H Platelet Count 236 # Mean Platelet Volume 11.8 H Immature Granulocytes % 6.000 H Neutrophils % 75.4 Segmented Neutrophils % (Manual) 47 Band Neutrophils % (Manual) 24 H Lymphocytes % 8.5 L Lymphocytes % (Manual) 14 L Monocytes % 8.8 Monocytes % (Manual) 7 Eosinophils % 0.4 Eosinophils % (Manual) 2 Basophils % 0.9 Metamyelocytes % (manual) 3 H Myelocytes % (Manual) 1 H Promyelocytes % (Manual) 2 H Nucleated Red Blood Cells % 3 H Immature Granulocytes # 0.590 H Neutrophils # 7.4 Neutrophils # (Manual) 4.8 Band Neutrophils # 2.3 H Lymphocytes (Manual) 1.3 Lymphocytes # 0.8 Monocytes # 0.9 Monocytes # (Manual) 0.6 Eosinophils # 0.0 Basophils # 0.1 Metamyelocytes # 0.2 H Myelocytes # 0.0 Promyelocytes # 0.1 H Nucleated Red Blood Cells # 0.0 Platelet Estimate NORMAL Giant Platelets 4 H Polychromasia 1+ Hypochromasia 2+ Poikilocytosis 2+ Anisocytosis 1+ Macrocytosis 1+ Stomatocytes 1+ Imaging Imaging CXR reviewed: IMPRESSION: Worsening patchy bilateral upper lobe and lower lobe infiltrates and atelectatic changes. Mild cardiomegaly. No other significant change. Medications Medication Current Medications IV Flush (NS 3 ml) 3 ml PER PROTOCOL IV ; Start 08/08/18 at 17:30 Ondansetron HCl (Zofran Inj) 4 mg Q6H PRN IV NAUSEA; Start 08/08/18 at 17:30 Haloperidol (Haldol) 5 mg PRN PRN IM AGGITATED Last administered on 09/05/18at 10:40; Admin Dose 5 MG; Start 08/08/18 at 22:00 Fentanyl 100 ml @ 2.5 mls/hr TITRATE IV Last administered on 08/28/18at 00:37; Admin Dose 8 MLS/HR; Start 08/09/18 at 06:30 Enoxaparin Sodium (Lovenox) 40 mg Q12H SC Last administered on 09/05/18at 08:17; Admin Dose 40 MG; Start 08/09/18 at 21:00 Famotidine (Pepcid) 20 mg BID GTB Last administered on 09/05/18 08:15; Admin Dose 20 MG; Start 08/12/18 at 09:00 Midazolam HCl 50 ml @ 1 mls/hr TITRATE IV Last administered on 08/25/18 11:49; Admin Dose 4 MLS/HR; Start 08/13/18 at 08:30 Naphazoline HCl (Clear Eyes / Naphcon) 2 drop QID BOTH EYES Last administered on 09/05/18 13:14; Admin Dose 2 DROP; Start 08/16/18 at 18:14 Acetaminophen (Tylenol Liquid) 650 mg Q6H PRN NGT MILD PAIN(1-3)OR ELEVATED TEMP Last administered on 09/05/18 10:42; Admin Dose 650 MG; Start 08/17/18 at 00:57 Levalbuterol (Xopenex Hfa) 4 puff Q4H RESP THERAPY PRN INH SHORTNESS OF BREATH Last administered on 08/27/18 05:08; Admin Dose 4 PUFF; Start 08/26/18 at 20:00 Ipratropium [place] (Atrovent Hfa) 2 puff QID RESP THERAPY PRN INH SHORTNESS OF BREATH Last administered on 08/27/18 05:08; Admin Dose 2 PUFF; Start 08/26/18 at 20:00 Lorazepam (Ativan) 1 mg Q6H PRN IV AGITATION Last administered on 09/05/18 16:09; Admin Dose 1 MG; Start 08/28/18 at 02:30 Morphine Sulfate (morphine) 2 mg Q2H PRN IV SEVERE PAIN LEVEL 7-10 Last administered on 09/05/18 09:09; Admin Dose 2 MG; Start 08/28/18 at 09:00 Metronidazole (Flagyl) 500 mg Q8 NGT Last administered on 09/05/18 14:25; Admin Dose 500 MG; Start 08/30/18 at 14:00 Scopolamine (Transderm-Scop) 1 patch Q72H TRANSDERM Last administered on 09/03/18 11:19; Admin Dose 1 PATCH; Start 08/31/18 at 11:30 Methylprednisolone Sodium Succinate (Solu-Medrol) 40 mg DAILY IV Last administered on 09/05/18 08:14; Admin Dose 40 MG; Start 09/02/18 at 09:00 Colistimethate Sodium (Colistin Inhal) 75 mg BID RESP THERAPY NEB Last administered on 09/05/18 08:50; Admin Dose 75 MG; Start 09/04/18 at 20:00 Docusate Sodium (Colace Liquid Cup) 200 mg BID NGT Last administered on 09/05/18 08:15; Admin Dose 200 MG; Start 09/04/18 at 21:00 Polyethylene Glycol (Miralax) 17 gm DAILY GTB ; Start 09/05/18 at 10:30 Quetiapine Fumarate (Seroquel) 25 mg BID GTB ; Start 09/05/18 at 21:00 Ceftazidime/ Dextrose 50 ml @ 100 mls/hr Q8 IVPB Last administered on 9at 14:25; Admin Dose 100 MLS/HR; Start 09/05/18 at 14:00 Tigecycline 50 mg/ Sodium Chloride 100 ml @ 200 mls/hr Q12 IVPB ; Start 09/05/18 at 23:00 Dextrose/Sodium Chloride 1,000 ml @ 100 mls/hr Q10H IV Last administered on 09/05/18 13:28; Admin Dose 100 MLS/HR; Start 09/05/18 at 12:30 Past Medical History reviewed Home Meds No Active Prescriptions or Reported Meds Medications Current Medications IV Flush (NS 3 ml) 3 ml PER PROTOCOL IV ; Start 08/08/18 at 17:30 Ondansetron HCl (Zofran Inj) 4 mg Q6H PRN IV NAUSEA; Start 08/08/18 at 17:30 Haloperidol (Haldol) 5 mg PRN PRN IM AGGITATED Last administered on 09/05/18at 10:40; Admin Dose 5 MG; Start 08/08/18 at 22:00 Fentanyl 100 ml @ 2.5 mls/hr TITRATE IV Last administered on 08/28/18at 00:37; Admin Dose 8 MLS/HR; Start 08/09/18 at 06:30 Enoxaparin Sodium (Lovenox) 40 mg Q12H SC Last administered on 09/05/18 08:17; Admin Dose 40 MG; Start 08/09/18 at 21:00 Famotidine (Pepcid) 20 mg BID GTB Last administered on 09/05/18 08:15; Admin Dose 20 MG; Start 08/12/18 at 09:00 Midazolam HCl 50 ml @ 1 mls/hr TITRATE IV Last administered on 08/25/18 11:49; Admin Dose 4 MLS/HR; Start 08/13/18 at 08:30 Naphazoline HCl (Clear Eyes / Naphcon) 2 drop QID BOTH EYES Last administered on 09/05/18 13:14; Admin Dose 2 DROP; Start 08/16/18 at 18:14 Acetaminophen (Tylenol Liquid) 650 mg Q6H PRN NGT MILD PAIN(1-3)OR ELEVATED TEMP Last administered on 09/05/18 10:42; Admin Dose 650 MG; Start 08/17/18 at 00:57 Levalbuterol (Xopenex Hfa) 4 puff Q4H RESP THERAPY PRN INH SHORTNESS OF BREATH Last administered on 08/27/18 05:08; Admin Dose 4 PUFF; Start 08/26/18 at 20:00 Ipratropium [place] (Atrovent Hfa) 2 puff QID RESP THERAPY PRN INH SHORTNESS OF BREATH Last administered on 08/27/18 05:08; Admin Dose 2 PUFF; Start 08/26/18 at 20:00 Lorazepam (Ativan) 1 mg Q6H PRN IV AGITATION Last administered on 09/05/18 16:09; Admin Dose 1 MG; Start 08/28/18 at 02:30 Morphine Sulfate (morphine) 2 mg Q2H PRN IV SEVERE PAIN LEVEL 7-10 Last administered on 09/05/18 09:09; Admin Dose 2 MG; Start 08/28/18 at 09:00 Metronidazole (Flagyl) 500 mg Q8 NGT Last administered on 09/05/18 14:25; Admin Dose 500 MG; Start 08/30/18 at 14:00 Scopolamine (Transderm-Scop) 1 patch Q72H TRANSDERM Last administered on 09/03/18 11:19; Admin Dose 1 PATCH; Start 08/31/18 at 11:30 Methylprednisolone Sodium Succinate (Solu-Medrol) 40 mg DAILY IV Last administered on 09/05/18 08:14; Admin Dose 40 MG; Start 09/02/18 at 09:00 Colistimethate Sodium (Colistin Inhal) 75 mg BID RESP THERAPY NEB Last administered on 09/05/18at 08:50; Admin Dose 75 MG; Start 09/04/18 at 20:00 Docusate Sodium (Colace Liquid Cup) 200 mg BID NGT Last administered on 09/05/18at 08:15; Admin Dose 200 MG; Start 09/04/18 at 21:00 Polyethylene Glycol (Miralax) 17 gm DAILY GTB ; Start 09/05/18 at 10:30 Quetiapine Fumarate (Seroquel) 25 mg BID GTB ; Start 09/05/18 at 21:00 Ceftazidime/ Dextrose 50 ml @ 100 mls/hr Q8 IVPB Last administered on 09/05/18at 14:25; Admin Dose 100 MLS/HR; Start 09/05/18 at 14:00 Tigecycline 50 mg/ Sodium Chloride 100 ml @ 200 mls/hr Q12 IVPB ; Start 09/05/18 at 23:00 Dextrose/Sodium Chloride 1,000 ml @ 100 mls/hr Q10H IV Last administered on 09/05/18at 13:28; Admin Dose 100 MLS/HR; Start 09/05/18 at 12:30 Allergies: Coded Allergies: No Known Drug Allergies (Verified Allergy, Mild, 08/30/18) Past Surgical History reviewed Past Surgical Hx: no surgical history Social History reviewed Alcohol Use: none Smoking Status: Former smoker Drug Use: none ARSENIO MAXWELL NP Sep 05, 2018 16:56 RAYMOND HERNANDEZ Sep 05, 2018 19:55
--- NOTE | 2018-09-05 17:47 | PN ---
Date/Time of Note Date/Time of Note DATE: 09/05/18 TIME: 17:45 Assessment/Plan Lines/Catheters IV Catheter Type (from Nrsg): Peripheral IV Santiago in Place (from Nrsg): Yes Assessment/Plan Assessment/Plan Respiratory failure Status post trach Patient improving Will remove sutures Subjective 24 Hr Interval Summary Constitutional: no complaints, improved, ambulates, BM, flatus, urine output Pain Control: well controlled Exam/Review of Systems Vital Signs Vitals Vital Signs Date Temp Pulse Resp B/P (MAP) Pulse Ox O2 O2 Flow FiO2 Time Delivery Rate 09/05/18 137 28 92 17:15 09/05/18 120/73 Trach 17:00 (89) Collar 09/05/18 98.8 16:00 09/05/18 10.0 40 08:50 Intake and Output 09/04/18 09/04/18 09/05/18 1515:00 23:00 07:00 IntakeIntake Total 700 ml 600 ml 800 ml OutputOutput Total 360 ml 270 ml 325 ml BalanceBalance 340 ml 330 ml 475 ml Exam Eyes: nl conjunctiva, EOMI, nl lids, nl sclera ENMT: nl external ears & nose, nl lips & teeth, nl nasal mucosa & septum, mucosa pink and moist Neck: supple, non-tender Respiratory: clear to auscultation, normal air movement Gastrointestinal: soft, nl liver, spleen, non-tender Musculoskeletal: nl extremities to inspection, nl gait and stance Results Result Diagram: 09/05/18 0455 09/05/18 0450 TIMMY DALAL MD Sep 05, 2018 17:47
[2018-09-05] MEDS: QUETIAPINE 25 MG TAB GTB SCH (20:54)
--- NOTE | 2018-09-05 21:37 | CONS ---
DATE OF ADMISSION: 08/08/2018 DATE OF CONSULTATION: TYPE OF CONSULTATION: Renal. Thank you, Dr. Rosales, for asking me to participate in medical management of this patient. REASON FOR CONSULTATION: Acute renal failure. HISTORY OF PRESENT ILLNESS: This 32-year-old man has been in the hospital since 08/08/2018. At that time, he came in with respiratory failure and pneumonia. He was hypercapnic and hypoxic. He does h ave a history of obstructive sleep apnea and morbid obesity. Again, I was asked to see the patient f or rising serum creatinine and decreasing urine output. I have reviewed the patient's I and O's, erika cheko tests including BUN and creatinine. The patient did have normal renal function until 08/31/19 19. His serum creatinine was 0.64. Then, his serum creatinine started to go up over the next 4 days and today his serum creatinine is 1.68 with a BUN of 83. Now, the patient was on diuretics because of evidence of congestive heart failure. He was on diuretics until about 09/03/2018. His blood pres sure has drifted down and today he has been hypotensive several times and did receive a liter of flui d early this morning and then a bolus later on today. His urine output has decreased significantly. He was putting out 30 to 50 mL of urine per hour yesterday and now his urine output is minimal. He was on a medication colistimethate until yesterday. That medication was given via a nebulizer. He w as also given the medication intravenously until yesterday. That medication does have potential neph rotoxicity and was discontinued because of the rising serum creatinine. The patient is now in the [facility] where he has been for several weeks. He was on a ventilator, but is now off the ventilator. He do es have a tracheostomy and has a PEG tube in place. He was diagnosed with a small-bowel obstruction this morning and a large amount of fluid was drained from the stomach, specifically, 2700 mL. His I and O's over the last couple of days have been positive but for at least 8 or 9 days previously, he w as in negative fluid balance. The patient is sedated and unable to give any history. The history wa s taken from previous notes and the nurses. PAST MEDICAL HISTORY: Remarkable for obstructive sleep apnea with previous respiratory failure, morb id obesity with hypoventilation syndrome. CURRENT MEDICATIONS: Includes the followin. Tigecycline. 2. Seroquel 25 mg twice a day. 3. Ceftazidime q.8 hours. 4. MiraLax. 5. Docusate sodium. 6. Methylprednisolone 40 mg IV daily. 7. Scopolamine patch. 8. Flagyl q.8 hours via NG tube. 9. Morphine sulfate p.r.n. pain. 10. Lorazepam p.r.n. agitation. 11. Xopenex p.r.n. shortness of breath. 12. Atrovent inhaler. 13. Acetaminophen. 14. Clear eyes solution. 15. Midazolam p.r.n. 16. Famotidine 20 mg down the G-tube twice a day. 17. Enoxaparin 40 mg q.12h. 18. Fentanyl titrating. 19. Haloperidol 5 mg IM p.r.n. 20. Zofran 4 mg q.6 hours IV p.r.n. nausea. PHYSICAL EXAMINATION: GENERAL: At this time reveals an obese, ill-appearing man who is sedated. He does open his eyes sli ghtly to verbal stimuli. NOSE AND MOUTH: Normal. NECK: He has a tracheostomy in place. LUNGS: Diminished breath sounds bilaterally. No rales or wheezes. HEART: Regular rhythm. No murmurs, gallops or rubs. ABDOMEN: Soft. He does have a gastric tube in place. EXTREMITIES: Trace pretibial edema. LABORATORY DATA: Tests done today, sodium 144, potassium 3.8, chloride 92, CO2 35, BUN 83, creatinin e 1.68, glucose 161, calcium 10.9, magnesium 2.3, total bilirubin 2.9, albumin 3.1. White blood coun t 9800, hemoglobin 11.6, hematocrit 42.6, platelets 236,000, neutrophils 75. IMPRESSION: 1. Acute renal failure. This patient has had a rise in his serum creatinine over the past 4 days wi th a decrease in urine output. His blood pressure has been lower than usual. I suspect that he has a combination of factors causing his renal failure. First of all, volume depletion, hypotension, pos sible sepsis, and he was on a medication colistimethate, both through inhalation and IV, which can ca use nephrotoxicity. He has no prior history of kidney disease. His renal ultrasound done today was unremarkable. No evidence of obstruction or renal cortical echogenicity or thinning. 2. Respiratory failure due to obstructive sleep apnea, hypoventilation and obesity. 3. Morbid obesity. 4. Recent pneumonia. 5. Hypercalcemia. PLAN: 1. Continue IV fluids. Try to maintain normal blood pressure with IV fluids and p.r.n. boluses. If needed, he may need to be started on a pressor. 2. Renal ultrasound done. 3. Check urine for urinalysis, urine protein creatinine ratio, urine sodium and urine creatinine. 4. He is now off colistimethate, which I would continue to avoid. I would avoid other potentially n ephrotoxic drugs at this time. 5. I will follow the patient along with you. Dictated By: LELAND HOPKINS MD ND/NTS Conf#: [id number] DID#: [id number] CC: ELIANE PEARSON MD;*EndCC*
[2018-09-05] MEDS: TIGECYCLINE 50 MG in SOD CHLORIDE 0.9% 100 ML IVPB SCH (23:21)
[2018-09-06] VITALS (25 sets, daily range): BP systolic 82–125; BP diastolic 42–87; PULSE 125–147; RESP 20–36
[2018-09-06] MEDS: DEXTROSE 5%-0.45% NACL 1,000 ML IV SCH ×2 (00:34→07:00)
[2018-09-06] MEDS: metroNIDAZOLE 500 MG TAB NGT SCH ×3 (05:14→22:07)
[2018-09-06] MEDS: CEFTAZIDIME 2GM/50 ML (PMX) 50 ML IVPB SCH (05:24)
--- NOTE | 2018-09-06 07:06 | PN ---
Date/Time of Note Date/Time of Note DATE: 09/06/18 TIME: 06:57 Assessment/Plan VTE Prophylaxis Risk score (from Nsg)>0 risk: 7 Pharmacological prophylaxis: LMWH Lines/Catheters IV Catheter Type (from Nrsg): Peripheral IV Urinary Cath still in place: Yes Reason Cath still needed: other (indicate) Assessment/Plan Hospital Course Subjective : -started on steroids yesterday, still somnolent and confused, remains febrile and tachycardic Objective : Gen: Morbidly obese man lying in bed, opens eyes, attempts to speak Neck: Obese, trach, HEENT: [place], scleral icterus Card: distant heart sounds Pulm: distant lung sounds. coarse Abd: Morbidly obese, soft, nontender, G-tube in place Ext: Bilateral LE chronic venous stasis changes, no edema, skin discoloration Neuro: No focal deficits, generalized lethargy, can barely raise his legs from the bed, confused , pulling at lines assessment and plan: 32yo Morbidly obese male who had presented with shortness of breath currently managed as follows: 1. Hypoxic/hypercapnic respiratory failure: -Secondary to ANDREW, exacerbated by pneumonia, underlying COPD with blebs now seen on CXR -Intubated , status post trach 08/24 -Currently off the ventilator, remains in ICU due to requiring frequent suctioning and copious secretions -steroids added 09/05/18 2. Encephalopathy, toxic metabolic, r/o hypoxic ischemic -patient remains confused intermittently, may have suffered a brain insult, unable to get MRI or CT 08/19 weight -appreciate neurology consult, will follow recs -attempted to cut back on dosing for Seroquel, but patient is still quite confused, Switched to BID dosing 3. Sepsis with Bilateral pneumonia -Cultures grew MDR Acinetobacter, now on inhaled colistin -spiking fevers again, -CXR shows improvement in infiltrates, repeat blood, urine and resp cultures pending -LE dopplers negative for DVT 4. Acute renal insufficiency likely secondary to overdiuresis -lasix has been d/c -urine output is reducing, -likely ATN -Appreciate Nephrology consult, may likely require short course of HD -change out schaefer to r/o obstruction 5. SBO and possible mass -Continue to hold tube feeds -Continue suction to PEG , 2.7L pulled out yesterday -await surgical review and recs -continue IV hydration -SBFT? but I'm hesitant d/t concern for possible mass, will try CT again 6. Functional dysphagia status post PEG -Secondary to trach 7.. Chronic hypochromic anemia -stable, monitor 8. Severe Obesity -high risk for skin breakdown, -controlled calories while on tube feeds -has lost about 40 pounds so far since admission per nursing 7. Debility and lethargy -PT limited by patient's mental status 8. Hyperbilirubinemia - predominantly direct, alkaline phosphatase is normal -liver USS showed diffuse fatty liver -am labs with hepatitis screen pending 9. Steroid induced leucocytosis -monitor 10. Tachycardia -persistent, ?related to sepsis -will get Echo, cardiac consult, r/o ACS -f/u BMP and repeat TSH as well Plan -remains in ICU for now d/t tenuous status and requiring repeated intervention -awaiting surgical review CRITICAL CARE TIME: >35 mins Result Diagram: 09/06/18 0505 09/05/18 0450 Results 24hrs Laboratory Tests Test 09/06/18 05:05 White Blood Count 18.8 #H Red Blood Count 4.77 Hemoglobin 11.3 L Hematocrit 40.4 L Mean Corpuscular Volume 84.7 Mean Corpuscular Hemoglobin 23.7 L Mean Corpuscular Hemoglobin Concent 28.0 L Red Cell Distribution Width 20.8 H Platelet Count 297 # Mean Platelet Volume 11.3 H Immature Granulocytes % 10.400 H Neutrophils % Lymphocytes % Monocytes % Eosinophils % Basophils % Nucleated Red Blood Cells % 0.7 H Immature Granulocytes # 1.960 H Neutrophils # Lymphocytes # Monocytes # Eosinophils # Basophils # Nucleated Red Blood Cells # Exam/Review of Systems Exam Vitals Vital Signs Date Temp Pulse Resp B/P (MAP) Pulse Ox O2 O2 Flow FiO2 Time Delivery Rate 09/06/18 131 05:00 09/06/18 22 96 Aerosol 10.0 40 04:50 T Tube 09/06/18 101.3 91/52 (65) 04:00 Intake and Output 09/05/18 09/05/18 09/06/18 1515:00 23:00 07:00 IntakeIntake Total 1450 ml 1150 ml 1025 ml OutputOutput Total 2500 ml 220 ml 5 ml BalanceBalance -1050 ml 930 ml 1020 ml Results Results 24hrs Laboratory Tests Test 09/06/18 05:05 White Blood Count 18.8 #H Red Blood Count 4.77 Hemoglobin 11.3 L Hematocrit 40.4 L Mean Corpuscular Volume 84.7 Mean Corpuscular Hemoglobin 23.7 L Mean Corpuscular Hemoglobin Concent 28.0 L Red Cell Distribution Width 20.8 H Platelet Count 297 # Mean Platelet Volume 11.3 H Immature Granulocytes % 10.400 H Neutrophils % Lymphocytes % Monocytes % Eosinophils % Basophils % Nucleated Red Blood Cells % 0.7 H Immature Granulocytes # 1.960 H Neutrophils # Lymphocytes # Monocytes # Eosinophils # Basophils # Nucleated Red Blood Cells # Imaging Imaging PROCEDURE: XR Chest AP portable CLINICAL INDICATION: Pneumonia TECHNIQUE: An AP portable radiograph of the chest was submitted. COMPARISON: 09/01/2018 FINDINGS: Support Hardware: The tracheostomy tube is again evident Cardiovascular: The heart remains mildly enlarged although pulmonary vasculature is upper normal. Lung Rosario: The diffuse interstitial infiltrates have significantly improved. Foci of discoid atelectasis are seen in the mid and lower lung zones and several blebs project to the right mid lung zone. Pleural Spaces: The left costophrenic angle remains blunted and a small left pleural fluid accumulation cannot be excluded. No pneumothorax is evident. Osseous Structures: The osseous structures appear intact. Soft Tissues: The soft tissues appear generous. IMPRESSION: 1. Persistent mild cardiomegaly with the pulmonary vasculature upper normal. 2. Significant improvement with regards to the diffuse interstitial infiltrates with foci of discoid atelectasis seen within the mid and lower lung zones. Blebs are seen to project in the right mid lung zone now more conspicuous. 3. Possible small left pleural fluid accumulation, unchanged. Physician Vinnie Date Time Electronically viewed and signed by Physician Vinnie on 09/05/2018 15:16 RH/ CC: LELAND HOPKINS MD [id number] Medications Medication Current Medications IV Flush (NS 3 ml) 3 ml PER PROTOCOL IV ; Start 08/08/18 at 17:30 Ondansetron HCl (Zofran Inj) 4 mg Q6H PRN IV NAUSEA; Start 08/08/18 at 17:30 Haloperidol (Haldol) 5 mg PRN PRN IM AGGITATED Last administered on 09/05/18 20:45; Admin Dose 5 MG; Start 08/08/18 at 22:00 Fentanyl 100 ml @ 2.5 mls/hr TITRATE IV Last administered on 08/28/18 00:37; Admin Dose 8 MLS/HR; Start 08/09/18 at 06:30 Enoxaparin Sodium (Lovenox) 40 mg Q12H SC Last administered on 09/05/18 20:52; Admin Dose 40 MG; Start 08/09/18 at 21:00 Famotidine (Pepcid) 20 mg BID GTB Last administered on 09/05/18 08:15; Admin Dose 20 MG; Start 08/12/18 at 09:00 Midazolam HCl 50 ml @ 1 mls/hr TITRATE IV Last administered on 08/25/18 11:49; Admin Dose 4 MLS/HR; Start 08/13/18 at 08:30 Naphazoline HCl (Clear Eyes / Naphcon) 2 drop QID BOTH EYES Last administered on 09/05/18 20:56; Admin Dose 2 DROP; Start 08/16/18 at 18:14 Acetaminophen (Tylenol Liquid) 650 mg Q6H PRN NGT MILD PAIN(1-3)OR ELEVATED TEMP Last administered on 09/05/18 23:17; Admin Dose 650 MG; Start 08/17/18 at 00:57 Levalbuterol (Xopenex Hfa) 4 puff Q4H RESP THERAPY PRN INH SHORTNESS OF BREATH Last administered on 08/27/18 05:08; Admin Dose 4 PUFF; Start 08/26/18 at 20:00 Ipratropium [place] (Atrovent Hfa) 2 puff QID RESP THERAPY PRN INH SHORTNESS OF BREATH Last administered on 08/27/18 05:08; Admin Dose 2 PUFF; Start 08/26/18 at 20:00 Lorazepam (Ativan) 1 mg Q6H PRN IV AGITATION Last administered on 09/05/18 16:09; Admin Dose 1 MG; Start 08/28/18 at 02:30 Morphine Sulfate (morphine) 2 mg Q2H PRN IV SEVERE PAIN LEVEL 7-10 Last administered on 09/05/18 17:08; Admin Dose 2 MG; Start 08/28/18 at 09:00 Metronidazole (Flagyl) 500 mg Q8 NGT Last administered on 09/05/18 14:25; Admin Dose 500 MG; Start 08/30/18 at 14:00 Scopolamine (Transderm-Scop) 1 patch Q72H TRANSDERM Last administered on 09/03/18 11:19; Admin Dose 1 PATCH; Start 08/31/18 at 11:30 Methylprednisolone Sodium Succinate (Solu-Medrol) 40 mg DAILY IV Last administered on 09/05/18 08:14; Admin Dose 40 MG; Start 09/02/18 at 09:00 Docusate Sodium (Colace Liquid Cup) 200 mg BID NGT Last administered on 09/05/18 08:15; Admin Dose 200 MG; Start 09/04/18 at 21:00 Polyethylene Glycol (Miralax) 17 gm DAILY GTB ; Start 09/05/18 at 10:30 Quetiapine Fumarate (Seroquel) 25 mg BID GTB ; Start 09/05/18 at 21:00 Ceftazidime/ Dextrose 50 ml @ 100 mls/hr Q8 IVPB Last administered on 09/06/18 05:24; Admin Dose 100 MLS/HR; Start 09/05/18 at 14:00 Tigecycline 50 mg/ Sodium Chloride 100 ml @ 200 mls/hr Q12 IVPB Last administered on 09/05/18at 23:21; Admin Dose 200 MLS/HR; Start 09/05/18 at 23:00 Dextrose/Sodium Chloride 1,000 ml @ 125 mls/hr Q8H IV Last administered on 09/06/18at 00:34; Admin Dose 125 MLS/HR; Start 09/05/18 at 12:30 TATI CARDOZA Sep 06, 2018 07:06
[2018-09-06] MEDS: HALOPERIDOL 5 MG INJ IM PRN (08:37)
[2018-09-06] MEDS: QUETIAPINE 25 MG TAB GTB SCH ×2 (08:37→20:39)
[2018-09-06] MEDS: METHYLPREDNISOLONE 40 MG INJ IV SCH (08:37)
[2018-09-06] MEDS: ACETAMINOPHEN 650MG/20.3ML CUP NGT PRN ×2 (08:37→16:03)
[2018-09-06] MEDS: ENOXAPARIN 40 MG/0.4 ML SYG SC SCH (08:38)
[2018-09-06] MEDS: POLYETHYLENE GLYCOL 17 GM PACKET GTB SCH (08:38)
[2018-09-06] MEDS: DOCUSATE SODIUM 10 MG/ML (10ML CUP) NGT SCH ×2 (08:38→20:39)
[2018-09-06] MEDS: FAMOTIDINE 20 MG TAB GTB SCH (08:38)
[2018-09-06] MEDS: NAPHAZOLINE 0.012% 15 ML OPH BOTH EYES SCH ×4 (08:39→20:37)
[2018-09-06] MEDS: TIGECYCLINE 50 MG in SOD CHLORIDE 0.9% 100 ML IVPB SCH ×2 (08:59→20:44)
--- NOTE | 2018-09-06 09:31 | CONS ---
Assessment/Plan Assessment/Plan Hospital Course (Demo Recall) ID PROGRESS NOTE CURRENT ABX: DAY # 29=> FORTAZ#2 + TYGACIL #2 + Colistin INH + Flagyl s/p ABX DE-ESCALATION 09/04 Zyvox + Colistin Diflucan -> DC'd s/p Vanco IV/Zosyn 09/06/18 0505 09/06/18 0505 24H INTERVAL SUMMARY * Today patient spiking Temp 102.+ this am -- Orders for BCx, Urine, Sputum placed. * Yesterday ABX were changed to Fortaz + Tygacil after he decompensation from ABX holiday after ABD day #27. On ABX day #27 he was afebrile, WBC had normalized and he developed MARTINE; hence the decision to DC Colimycin IV with ABX holiday trial. Within 24H he developed fever 101 + tachycardia w/leukocytosis; hence - ABX were restarted yesterday with change to Tygacil for GNR/ACBA/CRE coverage, VRE & MRSA coverage in addition to antipseudomonal FORTAZ which demonstrated INTERMEDIATE sensitivity to ACBA which is growing in Trach Aspirate. He was also placed on Colistin INH to assist with off-loading MDRO ACBA from Trach/Bronchial/small airways. * ABD XR revealed: Findings of small bowel obstruction with a possible mass, fluid collection, or hematoma in the left abdomen. * Of note: Tygacil can take 48H to penetrate the tissues to optimal antimicrobial levels; so hopefully patient may demonstrate improved response to current ABX by tomorrow. DIAGNOSTIC IMAGING * 09/05/18 liver US: IMPRESSION:Diffuse fatty infiltration of an enlarged liver .Pancreas not well visualized. If characterization of this structure is needed repeat exam or CT/MRI is recommended. * 09/05/18 ABD XR: IMPRESSION: Findings of small bowel obstruction with a possible mass, fluid collection, or hematoma in the left abdomen. * 09/06/18 CXR: IMPRESSION: * 1. Persistent mild cardiomegaly with the pulmonary vasculature upper normal. * 2. Significant improvement with regards to the diffuse interstitial infiltrates with foci of discoid atelectasis seen within the mid and lower lung zones. Blebs are seen to project in the right mid lung zone now more conspicuous. * 3. Possible small left pleural fluid accumulation, unchanged. MICRO/OTHER * Blood cultures repeated on August 29 negative a culture of the tip of the PICC revealed no growth sputum culture growing gram-negative rods * 08/30/18 BCx (-) * 08/29/18 PICC Tip (-) * 08/29/18 BCx (-) * 08/29/18 RESP CX: RESPIRATORY CULTURE Final Organism 1 ACINETOBACTER BAUMANNII QUANTITY 1+ A.BAUMANNI A.BAUMANNI M.I.C. RX M.I.C. RX --------- --- --------- --- AMIKACIN R CEFEPIME >=64 R CEFTAZIDIME 16 I CIPROFLOXACIN >=4 R GENTAMICIN >=16 R LEVOFLOXACIN >=8 R MEROPENEM >32 R TOBRAMYCIN >=16 R TRIMETHOPRIM/SULFAMETHOXAZOLE >=320 R PIPERACILLIN/TAZOBACTAM >=128 R * 08/26/18 (-)C.Diff * 08/26/18 BCX (+) Cons BLOOD CULTURE Final BCULT GRAM BOTTLE 1 Gram positive cocci in clusters 1 of 2 bottles . seen on gram stain of the broth Organism 1 COAGULASE NEGATIVE STAPH * 08/16/18 Respiratory Cx (+)ACBA = MDRO * 08/09/18 BRONCH (-) * 08/08/18 (-)MRSA, (-)Influenza A/B, (-)UTI * 08/08/18 BCx (-) * PHYSICAL EXAMINATION: GENERAL: Non-communicative, super morbid obese M, orally intubated, sedated on the Vent, looks comfortable, NAD HEENT: AT, NC, anicteric NECK: Supple, (+)Trach in place CHEST: Equal chest rise bilaterally, without dyspnea on observation = Vented HEART: Pulse RRR ABDOMEN: Soft / NT EXTREMITIES: Warm, dry SKIN: No rash, no diaphoresis, multiple Tattoos ID ASSESSMENT 32 yo Super Morbid Obese M admit with: 1. Sepsis w/Fevers - MULTIFACTORIAL ETIOLOGY => FEVERS + LEUKOCYTOSIS 09/05/18 w/ABX Holiday Trial * HCAP superimposed on probable ASP PNA * S/P PICC Line Sepsis -- BCx (+) opportunistic CoNS -- PICC Line DC'd 08/29/18 2. Leukocytosis - partial IV steroids demargination 3. PNA -- ASP PNA risk factors * 08/09/18 BRONCH (-) * 08/29/18 RESP CX: RESPIRATORY CULTURE Final Organism 1 ACINETOBACTER BAUMANNII = MDRO 4. Acute hypoxic respiratory failure => s/p Trach placement 5. Obstructive Sleep Apnea/Obesity hypoventilation syndrome 6. MARTINE -- S.Creatine rising on 09/04/18 -- Colistin IV DC'd 09/04/18 7. BLEXT chronic venous stasis hemosiderin pigment & fibrotic dermatitis changes - venous stasis insufficiency/HTN due to morbid obesity * 09/05/18 (-)BLEXT DVT 8. Fungal dermatomycosis -- groin/ABD folds 9. Diarrhea = ABX associated w/(-)C.Diff toxin (-)MRSA Nares ABX ALLERGIES: KNDA INVASIVES: PIV, Trach PEG Santiago catheter CURRENT ABX: DAY #29=>FORTAZ #2 + TYGACIL#2 + Colistin INH#3 + Flagyl Zyvox + Colistin + Flagyl + Diflucan s/p Vanco IV/Zosyn ID RECOMMENDATIONS/PLAN: 1. Patient did not tolerate ABX HOLIDAY trial on 09/04/18 due to MARTINE on prior Colistin IV which was DC'd 09/04/18 * Today patient spiking Temp 102.+ this am w/rising WBC-- Orders for BCx, Urine, Sputum placed. 2. STARTED on 09/05/18 TYGACIL + Antipseudomonal FORTAZ for ACBA + HCAP == see how he responds * NOTE: It takes 48H for Tygacil to penetrate the tissues -- if he responds will DC Flagyl in 48H LITERATURE REVIEW ------- [facility] J. 2011Mar 18; 53(5): [id number]. Published online 2011Feb 08. doi: [id number] PMCID: [id number] PMID: [id number] Clinical Outcomes of Tigecycline in the Treatment of Multidrug-Resistant Acinetobacter baumannii Infection Harsh Cohen, Stella Gordon, Patel Flores, Se Shane Flores, Lizandro Gordon, Eli Cabrera, and Nathaniel Rubalcava This article has been cited by other articles in PMC. Go to: Abstract Purpose Acinetobacter baumannii (A. baumannii) has emerged as a major cause of nosocomial pneumonia and sepsis in seriously ill patients. Multidrug-resistant A. baumannii (MDRAB) is increasing in frequency, and the management of it's i nfections is consequently difficult. Therefore, tigecycline is considered to be the drug of choice for MDRAB treatment. The aim of our study was to evaluate the microbiological eradication and clinical effectiveness of tigecycline against MDRAB in seriously ill patients, including patients with ventilator-associated pneumonia (VAP). Materials and Methods We conducted a retrospective study including patients with A. baumannii infections who were treated with tigecycline between October 16, 2008 and October 15, 2009. We treated 27 patients with tigecycline for MDRAB infections. Results The mean age of patients was 66.2 years, and 20 (74.1%) patients were male. The median length of stay at hospital was 74.6 days. MDRAB was eradicated from the site of infection in 23 cases (85.2%), however, only 17 cases (63.0%) showed positive clinical responses. Overall, an in-hospital mortality rate of 51.9% was observed, and 4 cases of were attributable to sepsis. The combination therapy showed better clinical and microbial success rates than the monotherapy without significant difference. Conclusion We observed the relatively low clinical success rate although the microbial eradication rate was high, probably due to superinfections in VAP and bacteremia. We suggest that clinicians should limit tigecycline monotherapy for MDRAB infection in critically ill patients, until large controlled clinical trials should be conducted. In conclusion, we examined the clinical and microbial efficacy of tigecycline for MDRAB infection including the isolates that were resistant to carbapenem and/or colistin, and observed a relatively low clinical success rate although the microbial eradication rate was high, probably due to superinfections in VAP and bacteremia. Although there was no significant difference between monotherapy and combination therapy groups, the combination therapy group showed better clinical and microbial success rates. We attribute the benefits from combination therapy to acquired resistance to tigecycline and superinfections with intrinsically resistant pathogens to tigecycline. Regarding the lack of data on tigecycline in the treatment of critically ill patients with MDRAB infection, we suggest that clinicians should limit tigecycline monotherapy for MDRAB infection to critically ill patients and consider the combination with anti-pseudomonal agent, while making reference to drug susceptibility test, until large controlled clinical trials should be conducted. J Antimicrob Chemother. 2008 Jan;62(1):45-55. doi: 10.1093/rocky/cnz145. Epub 2007Nov 08. Tigecycline for the treatment of multidrug-resistant (including carbapenem- resistant) Acinetobacter infections: a review of the scientific evidence. Cesar JENNINGS1, Estelle T, Estelle I, Sejal BUTTERFIELD. Author information Abstract OBJECTIVES: New antibacterial agents are required for the treatment of infections caused by multidrug-resistant (MDR) Acinetobacter spp. Whether tigecycline constitutes an effective treatment option or not, is not well established. We sought to evaluate the available evidence regarding the microbiological activity and clinical effectiveness of tigecycline for MDR (including the subset of carbapen em-resistant) Acinetobacter spp. METHODS: We searched PubMed for relevant articles and extracted/evaluated the available evidence. RESULTS: We identified 22 microbiological studies reporting data for 2384 Acinetobacter spp. (1906 Acinetobacter baumannii). Susceptibility of at least 90% of the Acin etobacter isolates to tigecycline (with an JULITO breakpoint of susceptibility < or =2 mg/L) was noted in 9/18 studies reporting data on MDR Acinetobacter and in 7/15 studies reporting specific data on carbapenem-resistant Acinetobacter. In an additional study reporting data for both resistance categories, adequate susceptibility of Acinetobacter spp. was observed by one (broth microdilution) of the methods employed. The effectiveness of tigecycline for MDR Acinetobacter infections was evaluated in eight identified clinical studies, reporting retrospective data regarding 42 severely ill patients, among whom 31 had respiratory tract infection (in 4 cases with secondary bacteraemia) and 4 had bacteraemia. Tigecycline therapy (in combination with other antibiotics in 28 patients) was effective in 32/42 cases. In three cases, resistance to tigecycline developed during treatment. CONCLUSIONS: Tigecycline showed considerable, though not consistent, antimicrobial activity against MDR (including carbapenem-resistant) Acinetobacter spp. However, data to support its clinical use, particularly for ventilator-associated pneumonia or bacteraemia, caused by these pathogens, are still limited. TRIAL REGISTRATION: ClinicalTrials.gov [id number]. PMID: 32012290 DOI: 10.1093/rocky/yfi745 [Indexed for MEDLINE] Consultation Date/Type/Reason Admit Date/Time Aug 08, 2018 at 17:18 Initial Consult Date 08/09/18 Requesting Provider: TATI CARDOZA Date/Time of Note DATE: 09/06/18 TIME: 09:10 Exam/Review of Systems Exam Vitals Vital Signs Date Temp Pulse Resp B/P (MAP) Pulse Ox O2 O2 Flow FiO2 Time Delivery Rate 09/06/18 102.1 08:37 09/06/18 133 36 99/57 (71) 98 Trach 06:00 Collar 09/06/18 10.0 40 04:50 Intake and Output 09/05/18 09/05/18 09/06/18 1515:00 23:00 07:00 IntakeIntake Total 1450 ml 1150 ml 1150 ml OutputOutput Total 2500 ml 220 ml 10 ml BalanceBalance -1050 ml 930 ml 1140 ml Results Result Diagram: 09/06/18 0505 09/06/18 0505 Results 24hrs Laboratory Tests Test 09/05/18 23:00 09/06/18 05:05 Urine Color RED Urine Clarity TURBID A Urine pH 5.0 Urine Specific Cecil 1.029 Urine Ketones NEGATIVE Urine Nitrite NEGATIVE Urine Bilirubin NEGATIVE Urine Urobilinogen NEGATIVE Urine Leukocyte Esterase NEGATIVE Urine Microscopic RBC > 182 H Urine Microscopic WBC 113 H Urine Hemoglobin 3+ H Urine Random Creatinine 186.35 Urine Random Sodium 30 Urine Protein/Creatinine Ratio 1.58 Urine Glucose 1+ H Urine Total Protein 296.0 H White Blood Count 18.8 #H Red Blood Count 4.77 Hemoglobin 11.3 L Hematocrit 40.4 L Mean Corpuscular Volume 84.7 Mean Corpuscular Hemoglobin 23.7 L Mean Corpuscular Hemoglobin Concent 28.0 L Red Cell Distribution Width 20.8 H Platelet Count 297 # Mean Platelet Volume 11.3 H Immature Granulocytes % 10.400 H Neutrophils % Segmented Neutrophils % (Manual) 31 L Band Neutrophils % (Manual) 40 H Lymphocytes % Lymphocytes % (Manual) 10 L Reactive Lymphocytes % (Manual) 2 H Monocytes % Monocytes % (Manual) 4 Eosinophils % Basophils % Basophils % (Manual) 1 Metamyelocytes % (manual) 7 H Myelocytes % (Manual) 3 H Promyelocytes % (Manual) 2 H Nucleated Red Blood Cells % 1 H Immature Granulocytes # 1.960 H Neutrophils # Neutrophils # (Manual) 7.2 Band Neutrophils # 7.5 H Lymphocytes (Manual) 1.8 Lymphocytes # Reactive Lymphocytes # 0.3 H Monocytes # Monocytes # (Manual) 0.7 Eosinophils # Basophils # Basophils # (Manual) 0.1 H Metamyelocytes # 1.3 H Myelocytes # 0.5 H Promyelocytes # 0.3 H Nucleated Red Blood Cells # Platelet Estimate NORMAL Giant Platelets 1 H Polychromasia 1+ Hypochromasia 1+ Poikilocytosis 1+ Anisocytosis 1+ Target Cells 2+ Ovalocytes 1+ Sodium Level 140 Potassium Level 4.8 Chloride Level 97 Carbon Dioxide Level 32 H Anion Gap 11 Blood Urea Nitrogen 113 #H Creatinine 3.96 #H Est Glomerular Filtrat Rate mL/min 18 L Glucose Level 189 Calcium Level 11.0 H Total Bilirubin 3.4 H Direct Bilirubin 3.10 H Indirect Bilirubin 0.3 Aspartate Amino Transf (AST/SGOT) 30 Alanine Aminotransferase (ALT/SGPT) 46 Alkaline Phosphatase 86 Creatine Kinase 70 Creatine Kinase Index 0.7 Creatinine Kinase MB (Mass) 0.50 Troponin I 0.058 Total Protein 6.5 Albumin 2.9 L Globulin 3.60 H Albumin/Globulin Ratio 0.80 Hepatitis B Surface Antigen NEGATIVE Hepatitis B Surface Antibody NEGATIVE Hepatitis B Core Total Antibody NEGATIVE Hepatitis C Antibody NEGATIVE Medications Medication Current Medications IV Flush (NS 3 ml) 3 ml PER PROTOCOL IV ; Start 08/08/18 at 17:30 Ondansetron HCl (Zofran Inj) 4 mg Q6H PRN IV NAUSEA; Start 08/08/18 at 17:30 Haloperidol (Haldol) 5 mg PRN PRN IM AGGITATED Last administered on 09/06/18 08:37; Admin Dose 5 MG; Start 08/08/18 at 22:00 Fentanyl 100 ml @ 2.5 mls/hr TITRATE IV Last administered on 08/28/18 00:37; Admin Dose 8 MLS/HR; Start 08/09/18 at 06:30 Enoxaparin Sodium (Lovenox) 40 mg Q12H SC Last administered on 09/05/18 20:52; Admin Dose 40 MG; Start 08/09/18 at 21:00 Famotidine (Pepcid) 20 mg BID GTB Last administered on 09/06/18 08:38; Admin Dose 20 MG; Start 08/12/18 at 09:00 Midazolam HCl 50 ml @ 1 mls/hr TITRATE IV Last administered on 08/25/18 11:49; Admin Dose 4 MLS/HR; Start 08/13/18 at 08:30 Naphazoline HCl (Clear Eyes / Naphcon) 2 drop QID BOTH EYES Last administered on 09/06/18 08:39; Admin Dose 2 DROP; Start 08/16/18 at 18:14 Acetaminophen (Tylenol Liquid) 650 mg Q6H PRN NGT MILD PAIN(1-3)OR ELEVATED TEMP Last administered on 09/06/18 08:37; Admin Dose 650 MG; Start 08/17/18 at 00:57 Levalbuterol (Xopenex Hfa) 4 puff Q4H RESP THERAPY PRN INH SHORTNESS OF BREATH Last administered on 08/27/18 05:08; Admin Dose 4 PUFF; Start 08/26/18 at 20:00 Ipratropium [place] (Atrovent Hfa) 2 puff QID RESP THERAPY PRN INH SHORTNESS OF BREATH Last administered on 08/27/18 05:08; Admin Dose 2 PUFF; Start 08/26/18 at 20:00 Lorazepam (Ativan) 1 mg Q6H PRN IV AGITATION Last administered on 09/05/18 16:09; Admin Dose 1 MG; Start 08/28/18 at 02:30 Morphine Sulfate (morphine) 2 mg Q2H PRN IV SEVERE PAIN LEVEL 7-10 Last ad ministered on 09/05/18 17:08; Admin Dose 2 MG; Start 08/28/18 at 09:00 Metronidazole (Flagyl) 500 mg Q8 NGT Last administered on 09/05/18 14:25; Admin Dose 500 MG; Start 08/30/18 at 14:00 Scopolamine (Transderm-Scop) 1 patch Q72H TRANSDERM Last administered on 09/03/18 11:19; Admin Dose 1 PATCH; Start 08/31/18 at 11:30 Methylprednisolone Sodium Succinate (Solu-Medrol) 40 mg DAILY IV Last adm inistered on 09/06/18 08:37; Admin Dose 40 MG; Start 09/02/18 at 09:00 Docusate Sodium (Colace Liquid Cup) 200 mg BID NGT Last administered on 09/05/18 08:15; Admin Dose 200 MG; Start 09/04/18 at 21:00 Polyethylene Glycol (Miralax) 17 gm DAILY GTB ; Start 09/05/18 at 10:30 Quetiapine Fumarate (Seroquel) 25 mg BID GTB Last administered on 09/06/18 08:37; Admin Dose 25 MG; Start 09/05/18 at 21:00 Ceftazidime/ Dextrose 50 ml @ 100 mls/hr Q8 IVPB Last administered on 09/06/18 05:24; Admin Dose 100 MLS/HR; Start 09/05/18 at 14:00 Tigecycline 50 mg/ Sodium Chloride 100 ml @ 200 mls/hr Q12 IVPB Last administered on 09/06/18 08:59; Admin Dose 200 MLS/HR; Start 09/05/18 at 23:00 Dextrose/Sodium Chloride 1,000 ml @ 125 mls/hr Q8H IV Last administered on 2/20/19at 00:34; Admin Dose 125 MLS/HR; Start 09/05/18 at 12:30 GARCÍA JOHNSON NP Sep 06, 2018 09:23
--- NOTE | 2018-09-06 09:59 | RADRPT ---
Echocardiogram Report Patient Name: HOWARD MIRANDAPatient ID: [id number] : 1985 (32y 9m)Study Date: 09/06/2018 9:19:26 AM Gender: MAccession #: [id number] Tech: Ladi Flaherty RDCS Location: [facility] Ref.Physician: TATI CARDOZA Height(Cm): BSA: Weight(Kg): Quality: Technically Difficult StudyAccount #: Procedures: Echocardiographic Report: Transthoracic echocardiogram with complete 2D, M-Mode, and doppler examination. Indications: Hypotension. Sepsis, and Tachycardia. Measurements: 2D/M Mode Doppler Measurement Value Normal Range Measurement Value Normal Range LVIDd 2D 3.6 [ 4.2 - 5.8 ] cm AV Peak Jose Luis 1.5 [ 100.0 - 170.0 ] cm/sec LVIDs 2D 2.2 [ 2.5 - 4.0 ] cm AV Peak PG 9.0 [ 2.0 - 9.0 ] mmHg LVPWd 2D 1.3 [ 0.6 - 1.0 ] cm LVOT Peak Jose Luis 1.3 [ 70.0 - 110.0 ] cm/sec IVSd 2D 1.4 [ 0.6 - 1.0 ] cm LVOT Peak PG 6.0 [ 2.0 - 6.0 ] mmHg AoR Diam 2D 2.7 [ 2.6 - 3.4 ] cm TR Peak Jose Luis 2.8 [ 100.0 - 280.0 ] cm/sec EDV 2D 53.0 [ 62.0 - 150.0 ] ml TR Peak PG 32.0 mmHg ESV 2D 15.8 [ 21.0 - 61.0 ] ml RVSP 40.0 [ 10.0 - 36.0 ] mmHg EF 2D 70.2 [ 52.0 - 72.0 ] percent RA Pressure 8.0 mmHg LA Dimen 2D 2.6 [ 3.0 - 4.0 ] cm Findings: Left Ventricle: Hyperdynamic left ventricular systolic function. Normal left ventricular cavity size. Normal left ventricular wall thickness. Ejection fraction is visually estimated at 80 %. Right Ventricle: Normal right ventricular systolic function. Moderate enlargement of right ventricle. Left Atrium: The left atrium is normal in size. Right Atrium: The right atrium is normal in size. Mitral Valve: Normal appearance of the mitral valve. Trace mitral regurgitation. Aortic Valve: Normal appearance of the aortic valve. No significant aortic stenosis or insufficiency. Tricuspid Valve: Normal appearance of the tricuspid valve. Estimated peak PA systolic pressure 32 mmHg. There is trace tricuspid regurgitation. Pulmonic Valve: Pulmonic valve not well visualized. Pericardium: Normal pericardium with no significant pericardial effusion. Aorta: Normal aortic root. IVC: The IVC is not well visualized. Conclusions: Technically difficult study. Hyperdynamic left ventricular systolic function. Normal left ventricular cavity size. Normal left ventricular wall thickness. Ejection fraction is visually estimated at 80 %. Normal right ventricular systolic function. Moderate enlargement of right ventricle. No significant valvular stenosis or regurgitation seen. Estimated peak PA systolic pressure 32 mmHg. The IVC is not well visualized. Electronically Signed By: James Mullen 2018-09-06 09:58:13 PST
--- NOTE | 2018-09-06 10:50 | CONS ---
Assessment/Plan Assessment/Plan Hospital Course (Demo Recall) Sinus tachycardia: Corresponds with his persistent fevers over the past 48 hrs and is likely reactive/physiologic to sepsis and SBO. He has RV enlargement on echo and PE is in the differential as well. LVEF is hyperdynamic. Acute renal failure: possibly from antibiotics but with sudden anuria and significant change in Cr, consider obstruction as well even with schaefer in place Acute on chronic respiratory failure: s/p tracheostomy this admission Acinetobacter PNA SBO Morbid obesity -antibiotics -IVF -supportive care for fevers -consider replacing schaefer -surgical eval Consultation Date/Type/Reason Admit Date/Time Aug 08, 2018 at 17:18 Date of Consultation: Sep 06, 2018 Type of Consult Cardiology Reason for Consultation Tachycardia Date/Time of Note DATE: 09/06/18 TIME: 10:39 Hx of Present Illness 32 yo M with a prolonged complex hospitalization this admission with a h/o COPD with blebs, chronic respiratory failure, severe morbid obesity, who was initially admitted for respiratory failure due to PNA (MDR acinetobacter) and evntually required tracheostomy. He has had baseline tachycardia per my chart review but in the 100-110 range. The last 48 hrs his HR has sustained 130-140s but in sinus. It also corresponds to persistent fevers up to 102.9. He has also developed acute renal failure and he is now anuric over the past 24 hrs with Cr increasing from 1.7 to 4. Also has a small bowel obstruction. He is responsive but unable to provide information unable to obtain Past Medical History per [facility] Meds No Active Prescriptions or Reported Meds Medications Current Medications IV Flush (NS 3 ml) 3 ml PER PROTOCOL IV ; Start 08/08/18 at 17:30 Ondansetron HCl (Zofran Inj) 4 mg Q6H PRN IV NAUSEA; Start 08/08/18 at 17:30 Haloperidol (Haldol) 5 mg PRN PRN IM AGGITATED Last administered on 09/06/18at 08:37; Admin Dose 5 MG; Start 08/08/18 at 22:00 Fentanyl 100 ml @ 2.5 mls/hr TITRATE IV Last administered on 08/28/18at 00:37; Admin Dose 8 MLS/HR; Start 08/09/18 at 06:30 Enoxaparin Sodium (Lovenox) 40 mg Q12H SC Last administered on 09/05/18 20:52; Admin Dose 40 MG; Start 08/09/18 at 21:00 Midazolam HCl 50 ml @ 1 mls/hr TITRATE IV Last administered on 08/25/18 11:49; Admin Dose 4 MLS/HR; Start 08/13/18 at 08:30 Naphazoline HCl (Clear Eyes / Naphcon) 2 drop QID BOTH EYES Last administered on 09/06/18 08:39; Admin Dose 2 DROP; Start 08/16/18 at 18:14 Acetaminophen (Tylenol Liquid) 650 mg Q6H PRN NGT MILD PAIN(1-3)OR ELEVATED TEMP Last administered on 09/06/18 08:37; Admin Dose 650 MG; Start 08/17/18 at 00:57 Levalbuterol (Xopenex Hfa) 4 puff Q4H RESP THERAPY PRN INH SHORTNESS OF BREATH Last administered on 08/27/18 05:08; Admin Dose 4 PUFF; Start 08/26/18 at 20:00 Ipratropium [place] (Atrovent Hfa) 2 puff QID RESP THERAPY PRN INH SHORTNESS OF BREATH Last administered on 08/27/18 05:08; Admin Dose 2 PUFF; Start 08/26/18 at 20:00 Lorazepam (Ativan) 1 mg Q6H PRN IV AGITATION Last administered on 09/05/18 16:09; Admin Dose 1 MG; Start 08/28/18 at 02:30 Morphine Sulfate (morphine) 2 mg Q2H PRN IV SEVERE PAIN LEVEL 7-10 Last administered on 09/05/18 17:08; Admin Dose 2 MG; Start 08/28/18 at 09:00 Metronidazole (Flagyl) 500 mg Q8 NGT Last administered on 09/05/18 14:25; Admin Dose 500 MG; Start 08/30/18 at 14:00 Scopolamine (Transderm-Scop) 1 patch Q72H TRANSDERM Last administered on 09/03/18 11:19; Admin Dose 1 PATCH; Start 08/31/18 at 11:30 Methylprednisolone Sodium Succinate (Solu-Medrol) 40 mg DAILY IV Last administered on 09/06/18 08:37; Admin Dose 40 MG; Start 09/02/18 at 09:00 Docusate Sodium (Colace Liquid Cup) 200 mg BID NGT Last administered on 09/05/18at 08:15; Admin Dose 200 MG; Start 09/04/18 at 21:00 Polyethylene Glycol (Miralax) 17 gm DAILY GTB ; Start 09/05/18 at 10:30 Quetiapine Fumarate (Seroquel) 25 mg BID GTB Last administered on 09/06/18at 08:37; Admin Dose 25 MG; Start 09/05/18 at 21:00 Tigecycline 50 mg/ Sodium Chloride 100 ml @ 200 mls/hr Q12 IVPB Last administered on 09/06/18at 08:59; Admin Dose 200 MLS/HR; Start 09/05/18 at 23:00 Dextrose/Sodium Chloride 1,000 ml @ 125 mls/hr Q8H IV Last administered on 09/06/18at 07:00; Admin Dose 125 MLS/HR; Start 09/05/18 at 12:30 Ceftazidime 50 ml @ 100 mls/hr Q24H IVPB ; Start 09/07/18 at 06:00 Famotidine (Pepcid) 20 mg DAILY GTB ; Start 09/07/18 at 09:00 Allergies: Coded Allergies: No Known Drug Allergies (Verified Allergy, Mild, 08/30/18) Past Surgical History Past Surgical Hx: no surgical history Social History Alcohol Use: none Smoking Status: Former smoker Drug Use: none Exam/Review of Systems Exam Vitals Vital Signs Date Temp Pulse Resp B/P (MAP) Pulse Ox O2 O2 Flow FiO2 Time Delivery Rate 09/06/18 100.9 09:35 09/06/18 140 08:00 09/06/18 36 99/57 (71) 98 Trach 06:00 Collar 09/06/18 10.0 40 04:50 Intake and Output 09/05/18 09/05/18 09/06/18 1515:00 23:00 07:00 IntakeIntake Total 1450 ml 1150 ml 1275 ml OutputOutput Total 2500 ml 220 ml 10 ml BalanceBalance -1050 ml 930 ml 1265 ml Constitutional: No alert, No distress ENMT: other (s/p trach) Neck: No jvd (unable to assess) Respiratory: diminished breath sounds; No clear to auscultation Cardiovascular: No regular rate and rhythm (tachycardic, regular ) Gastrointestinal: soft, non-tender; No distended Musculoskeletal: No nl extremities to inspection Neurological: No nl mental status, No nl speech Results Result Diagram: 09/06/18 0505 09/06/18 0505 Results 24hrs Laboratory Tests Test 09/05/18 23:00 09/06/18 05:05 Urine Color RED Urine Clarity TURBID A Urine pH 5.0 Urine Specific [place] 1.029 Urine Ketones NEGATIVE Urine Nitrite NEGATIVE Urine Bilirubin NEGATIVE Urine Urobilinogen NEGATIVE Urine Leukocyte Esterase NEGATIVE Urine Microscopic RBC > 182 H Urine Microscopic WBC 113 H Urine Hemoglobin 3+ H Urine Random Creatinine 186.35 Urine Random Sodium 30 Urine Protein/Creatinine Ratio 1.58 Urine Glucose 1+ H Urine Total Protein 296.0 H White Blood Count 18.8 #H Red Blood Count 4.77 Hemoglobin 11.3 L Hematocrit 40.4 L Mean Corpuscular Volume 84.7 Mean Corpuscular Hemoglobin 23.7 L Mean Corpuscular Hemoglobin Concent 28.0 L Red Cell Distribution Width 20.8 H Platelet Count 297 # Mean Platelet Volume 11.3 H Immature Granulocytes % 10.400 H Neutrophils % Segmented Neutrophils % (Manual) 31 L Band Neutrophils % (Manual) 40 H Lymphocytes % Lymphocytes % (Manual) 10 L Reactive Lymphocytes % (Manual) 2 H Monocytes % Monocytes % (Manual) 4 Eosinophils % Basophils % Basophils % (Manual) 1 Metamyelocytes % (manual) 7 H Myelocytes % (Manual) 3 H Promyelocytes % (Manual) 2 H Nucleated Red Blood Cells % 1 H Immature Granulocytes # 1.960 H Neutrophils # Neutrophils # (Manual) 7.2 Band Neutrophils # 7.5 H Lymphocytes (Manual) 1.8 Lymphocytes # Reactive Lymphocytes # 0.3 H Monocytes # Monocytes # (Manual) 0.7 Eosinophils # Basophils # Basophils # (Manual) 0.1 H Metamyelocytes # 1.3 H Myelocytes # 0.5 H Promyelocytes # 0.3 H Nucleated Red Blood Cells # Platelet Estimate NORMAL Giant Platelets 1 H Polychromasia 1+ Hypochromasia 1+ Poikilocytosis 1+ Anisocytosis 1+ Target Cells 2+ Ovalocytes 1+ Sodium Level 140 Potassium Level 4.8 Chloride Level 97 Carbon Dioxide Level 32 H Anion Gap 11 Blood Urea Nitrogen 113 #H Creatinine 3.96 #H Est Glomerular Filtrat Rate mL/min 18 L Glucose Level 189 Calcium Level 11.0 H Total Bilirubin 3.4 H Direct Bilirubin 3.10 H Indirect Bilirubin 0.3 Aspartate Amino Transf (AST/SGOT) 30 Alanine Aminotransferase (ALT/SGPT) 46 Alkaline Phosphatase 86 Creatine Kinase 70 Creatine Kinase Index 0.7 Creatinine Kinase MB (Mass) 0.50 Troponin I 0.058 Total Protein 6.5 Albumin 2.9 L Globulin 3.60 H Albumin/Globulin Ratio 0.80 Hepatitis B Surface Antigen NEGATIVE Hepatitis B Surface Antibody NEGATIVE Hepatitis B Core Total Antibody NEGATIVE Hepatitis C Antibody NEGATIVE Medications Medication Current Medications IV Flush (NS 3 ml) 3 ml PER PROTOCOL IV ; Start 08/08/18 at 17:30 Ondansetron HCl (Zofran Inj) 4 mg Q6H PRN IV NAUSEA; Start 08/08/18 at 17:30 Haloperidol (Haldol) 5 mg PRN PRN IM AGGITATED Last administered on 09/06/18 08:37; Admin Dose 5 MG; Start 08/08/18 at 22:00 Fentanyl 100 ml @ 2.5 mls/hr TITRATE IV Last administered on 08/28/18 00:37; Admin Dose 8 MLS/HR; Start 08/09/18 at 06:30 Enoxaparin Sodium (Lovenox) 40 mg Q12H SC Last administered on 09/05/18 20:52; Admin Dose 40 MG; Start 08/09/18 at 21:00 Midazolam HCl 50 ml @ 1 mls/hr TITRATE IV Last administered on 08/25/18 11:49; Admin Dose 4 MLS/HR; Start 08/13/18 at 08:30 Naphazoline HCl (Clear Eyes / Naphcon) 2 drop QID BOTH EYES Last administered on 09/06/18 08:39; Admin Dose 2 DROP; Start 08/16/18 at 18:14 Acetaminophen (Tylenol Liquid) 650 mg Q6H PRN NGT MILD PAIN(1-3)OR ELEVATED TEMP Last administered on 09/06/18 08:37; Admin Dose 650 MG; Start 08/17/18 at 00:57 Levalbuterol (Xopenex Hfa) 4 puff Q4H RESP THERAPY PRN INH SHORTNESS OF BREATH Last administered on 08/27/18 05:08; Admin Dose 4 PUFF; Start 08/26/18 at 20:00 Ipratropium [place] (Atrovent Hfa) 2 puff QID RESP THERAPY PRN INH SHORTNESS OF BREATH Last administered on 08/27/18 05:08; Admin Dose 2 PUFF; Start 08/26/18 at 20:00 Lorazepam (Ativan) 1 mg Q6H PRN IV AGITATION Last administered on 09/05/18 16:09; Admin Dose 1 MG; Start 08/28/18 at 02:30 Morphine Sulfate (morphine) 2 mg Q2H PRN IV SEVERE PAIN LEVEL 7-10 Last administered on 09/05/18 17:08; Admin Dose 2 MG; Start 08/28/18 at 09:00 Metronidazole (Flagyl) 500 mg Q8 NGT Last administered on 09/05/18 14:25; Admin Dose 500 MG; Start 08/30/18 at 14:00 Scopolamine (Transderm-Scop) 1 patch Q72H TRANSDERM Last administered on 09/03/18 11:19; Admin Dose 1 PATCH; Start 08/31/18 at 11:30 Methylprednisolone Sodium Succinate (Solu-Medrol) 40 mg DAILY IV Last administered on 09/06/18 08:37; Admin Dose 40 MG; Start 09/02/18 at 09:00 Docusate Sodium (Colace Liquid Cup) 200 mg BID NGT Last administered on 09/05/18 08:15; Admin Dose 200 MG; Start 09/04/18 at 21:00 Polyethylene Glycol (Miralax) 17 gm DAILY GTB ; Start 09/05/18 at 10:30 Quetiapine Fumarate (Seroquel) 25 mg BID GTB Last administered on 09/06/18 08:37; Admin Dose 25 MG; Start 09/05/18 at 21:00 Tigecycline 50 mg/ Sodium Chloride 100 ml @ 200 mls/hr Q12 IVPB Last administered on 09/06/18 08:59; Admin Dose 200 MLS/HR; Start 09/05/18 at 23:00 Dextrose/Sodium Chloride 1,000 ml @ 125 mls/hr Q8H IV Last administered on 09/06/18 07:00; Admin Dose 125 MLS/HR; Start 09/05/18 at 12:30 Ceftazidime 50 ml @ 100 mls/hr Q24H IVPB ; Start 09/07/18 at 06:00 Famotidine (Pepcid) 20 mg DAILY GTB ; Start 09/07/18 at 09:00 KRISTA ROCHA Sep 06, 2018 10:50
[2018-09-06] MEDS ORDERED: LIDOCAINE 1% (MPF) 5 ML VIAL SC ONE ×2 (11:30)
[2018-09-06] MEDS: SCOPOLAMINE 1.5 MG PATCH TRANSDERM SCH (11:47)
--- NOTE | 2018-09-06 12:59 | CONS ---
Assessment/Plan Assessment/Plan Hospital Course (Demo Recall) 1. Acute renal failure. This patient has had a rise in his serum creatinine over the past 5 days with a decrease in his urine output. He is now anuric. His creatinine is up to 3.96 and BUN is 113. He he has a sinus tachycardia with heart rate as high as 140 and his blood pressure has been low , down to 82/44 early this morning. I did speak to the patient's mother and 1 of his brothers. I explained to them that I would consider doing hemodialysis on him today ; however, I am concerned about his low blood pressure and tachycardia. I told them that there is a risk of worsening hypotension. I told him that he runs a risk of having a cardiac arrest and or he could having dialysis. I explained that I would like to try and get his blood pressure higher with IV fluid. I explained to them that giving him more IV fluid does run the risk of him going back into congestive heart failure. If that does not work then we may need to start pressors. If his renal function continues to deteriorate then we may not have a choice but to start dialysis but we will wait 1 day and see how he does. The mother and brother were understanding and in agreement with the plan. 2. Respiratory failure 3. Fever, he is being treated with broad-spectrum antibiotics. 4. Morbid obesity Consultation Date/Type/Reason Admit Date/Time Aug 08, 2018 at 17:18 Initial Consult Date 09/06/18 Type of Consult Nephrology Requesting Provider: TATI CARDOZA Date/Time of Note DATE: 09/06/18 TIME: 12:46 24 HR Interval Summary Free Text/Dictation This patient is being seen in nephrologic follow-up. He is in the intensive care unit. He is lethargic. He does open his eyes to verbal stimuli. He has a tracheostomy in place. He is off the ventilator. Subjective hx not possible: pt non-verbal Exam/Review of Systems Exam Vitals Vital Signs Date Temp Pulse Resp B/P (MAP) Pulse Ox O2 O2 Flow FiO2 Time Delivery Rate 09/06/18 130 12:00 09/06/18 97 10.0 40 10:50 09/06/18 100.9 09:35 09/06/18 36 99/57 (71) Trach 06:00 Collar Intake and Output 09/05/18 09/05/18 09/06/18 1515:00 23:00 07:00 IntakeIntake Total 1450 ml 1150 ml 1275 ml OutputOutput Total 2500 ml 220 ml 10 ml BalanceBalance -1050 ml 930 ml 1265 ml Constitutional: non-verbal, frail, obese Psych: confusion Respiratory: diminished breath sounds Cardiovascular: regular rate and rhythm Gastrointestinal: soft, non-tender, distended Musculoskeletal: nl extremities to inspection Results Result Diagram: 09/06/18 0505 09/06/18 0505 Results 24hrs Laboratory Tests Test 09/05/18 23:00 09/06/18 05:05 09/06/18 09:45 Urine Color RED MEGAN Urine Clarity TURBID A TURBID A Urine pH 5.0 5.0 Urine Specific [place] 1.029 1.027 Urine Ketones NEGATIVE NEGATIVE Urine Nitrite NEGATIVE NEGATIVE Urine Bilirubin NEGATIVE NEGATIVE Urine Urobilinogen NEGATIVE NEGATIVE Urine Leukocyte Esterase NEGATIVE TRACE A Urine Microscopic RBC > 182 H > 182 H Urine Microscopic WBC 113 H 36 H Urine Hemoglobin 3+ H 3+ H Urine Random Creatinine 186.35 Urine Random Sodium 30 Urine Protein/Creatinine Ratio 1.58 Urine Glucose 1+ H 1+ H Urine Total Protein 296.0 H 2+ H White Blood Count 18.8 #H Red Blood Count 4.77 Hemoglobin 11.3 L Hematocrit 40.4 L Mean Corpuscular Volume 84.7 Mean Corpuscular Hemoglobin 23.7 L Mean Corpuscular Hemoglobin Concent 28.0 L Red Cell Distribution Width 20.8 H Platelet Count 297 # Mean Platelet Volume 11.3 H Immature Granulocytes % 10.400 H Neutrophils % Segmented Neutrophils % (Manual) 31 L Band Neutrophils % (Manual) 40 H Lymphocytes % Lymphocytes % (Manual) 10 L Reactive Lymphocytes % (Manual) 2 H Monocytes % Monocytes % (Manual) 4 Eosinophils % Basophils % Basophils % (Manual) 1 Metamyelocytes % (manual) 7 H Myelocytes % (Manual) 3 H Promyelocytes % (Manual) 2 H Nucleated Red Blood Cells % 1 H Immature Granulocytes # 1.960 H Neutrophils # Neutrophils # (Manual) 7.2 Band Neutrophils # 7.5 H Lymphocytes (Manual) 1.8 Lymphocytes # Reactive Lymphocytes # 0.3 H Monocytes # Monocytes # (Manual) 0.7 Eosinophils # Basophils # Basophils # (Manual) 0.1 H Metamyelocytes # 1.3 H Myelocytes # 0.5 H Promyelocytes # 0.3 H Nucleated Red Blood Cells # Platelet Estimate NORMAL Giant Platelets 1 H Polychromasia 1+ Hypochromasia 1+ Poikilocytosis 1+ Anisocytosis 1+ Target Cells 2+ Ovalocytes 1+ Sodium Level 140 Potassium Level 4.8 Chloride Level 97 Carbon Dioxide Level 32 H Anion Gap 11 Blood Urea Nitrogen 113 #H Creatinine 3.96 #H Est Glomerular Filtrat Rate mL/min 18 L Glucose Level 189 Calcium Level 11.0 H Total Bilirubin 3.4 H Direct Bilirubin 3.10 H Indirect Bilirubin 0.3 Aspartate Amino Transf (AST/SGOT) 30 Alanine Aminotransferase (ALT/SGPT) 46 Alkaline Phosphatase 86 Creatine Kinase 70 Creatine Kinase Index 0.7 Creatinine Kinase MB (Mass) 0.50 Troponin I 0.058 Total Protein 6.5 Albumin 2.9 L Globulin 3.60 H Albumin/Globulin Ratio 0.80 Hepatitis B Surface Antigen NEGATIVE Hepatitis B Surface Antibody NEGATIVE Hepatitis B Core Total Antibody NEGATIVE Hepatitis C Antibody NEGATIVE Urine Calcium Oxalate Crystals MANY A Urine Bacteria FEW A Urine Granular Casts FEW A Urine Mucus FEW A Medications Medication Current Medications IV Flush (NS 3 ml) 3 ml PER PROTOCOL IV ; Start 08/08/18 at 17:30 Ondansetron HCl (Zofran Inj) 4 mg Q6H PRN IV NAUSEA; Start 08/08/18 at 17:30 Haloperidol (Haldol) 5 mg PRN PRN IM AGGITATED Last administered on 09/06/18 08:37; Admin Dose 5 MG; Start 08/08/18 at 22:00 Fentanyl 100 ml @ 2.5 mls/hr TITRATE IV Last administered on 08/28/18 00:37; Admin Dose 8 MLS/HR; Start 08/09/18 at 06:30 Enoxaparin Sodium (Lovenox) 40 mg Q12H SC Last administered on 09/05/18 20:52; Admin Dose 40 MG; Start 08/09/18 at 21:00 Midazolam HCl 50 ml @ 1 mls/hr TITRATE IV Last administered on 08/25/18 11:49; Admin Dose 4 MLS/HR; Start 08/13/18 at 08:30 Naphazoline HCl (Clear Eyes / Naphcon) 2 drop QID BOTH EYES Last administered on 09/06/18 08:39; Admin Dose 2 DROP; Start 08/16/18 at 18:14 Acetaminophen (Tylenol Liquid) 650 mg Q6H PRN NGT MILD PAIN(1-3)OR ELEVATED TEMP Last administered on 09/06/18 08:37; Admin Dose 650 MG; Start 08/17/18 at 00:57 Levalbuterol (Xopenex Hfa) 4 puff Q4H RESP THERAPY PRN INH SHORTNESS OF BREATH Last administered on 08/27/18 05:08; Admin Dose 4 PUFF; Start 08/26/18 at 20:00 Ipratropium [place] (Atrovent Hfa) 2 puff QID RESP THERAPY PRN INH SHORTNESS OF BREATH Last administered on 08/27/18 05:08; Admin Dose 2 PUFF; Start 08/26/18 at 20:00 Lorazepam (Ativan) 1 mg Q6H PRN IV AGITATION Last administered on 09/05/18 16:09; Admin Dose 1 MG; Start 08/28/18 at 02:30 Morphine Sulfate (morphine) 2 mg Q2H PRN IV SEVERE PAIN LEVEL 7-10 Last administered on 09/05/18 17:08; Admin Dose 2 MG; Start 08/28/18 at 09:00 Metronidazole (Flagyl) 500 mg Q8 NGT Last administered on 09/05/18 14:25; Admin Dose 500 MG; Start 08/30/18 at 14:00 Scopolamine (Transderm-Scop) 1 patch Q72H TRANSDERM Last administered on 09/06/18 11:47; Admin Dose 1 PATCH; Start 08/31/18 at 11:30 Methylprednisolone Sodium Succinate (Solu-Medrol) 40 mg DAILY IV Last administered on 09/06/18 08:37; Admin Dose 40 MG; Start 09/02/18 at 09:00 Docusate Sodium (Colace Liquid Cup) 200 mg BID NGT Last administered on 09/05/18 08:15; Admin Dose 200 MG; Start 09/04/18 at 21:00 Polyethylene Glycol (Miralax) 17 gm DAILY GTB ; Start 09/05/18 at 10:30 Quetiapine Fumarate (Seroquel) 25 mg BID GTB Last administered on 09/06/18 08:37; Admin Dose 25 MG; Start 2/19/19 at 21:00 Tigecycline 50 mg/ Sodium Chloride 100 ml @ 200 mls/hr Q12 IVPB Last administered on 09/06/18at 08:59; Admin Dose 200 MLS/HR; Start 09/05/18 at 23:00 Dextrose/Sodium Chloride 1,000 ml @ 125 mls/hr Q8H IV Last administered on 09/06/18at 07:00; Admin Dose 125 MLS/HR; Start 09/05/18 at 12:30 Ceftazidime 50 ml @ 100 mls/hr Q24H IVPB ; Start 09/07/18 at 06:00 Famotidine (Pepcid) 20 mg DAILY GTB ; Start 09/07/18 at 09:00 Sodium Chloride 500 ml @ 500 mls/hr Q1H ONCE IV ; Start 09/06/18 at 13:00; Stop 09/06/18 at 13:59; Status UNV LELAND HOPKINS MD Sep 06, 2018 12:59
[2018-09-06] MEDS ORDERED: SOD CHLORIDE 0.9% 500 ML IV ONE (13:00)
--- NOTE | 2018-09-06 14:24 | CONS ---
Consult Date/Type/Reason Admit Date/Time Aug 08, 2018 at 17:18 Initial Consult Date 08/09/18 Type of Consult Pulmonary Requesting Provider: TATI CARDOZA Date/Time of Note DATE: 09/06/18 TIME: 14:23 Subjective Patient remains somewhat agitated no urine output with worsening renal failure. Still febrile. Objective Vital Signs Date Temp Pulse Resp B/P (MAP) Pulse Ox O2 O2 Flow FiO2 Time Delivery Rate 09/06/18 99.8 131 27 95/63 (74) 91 Trach 12:00 Collar 09/06/18 10.0 40 10:50 Intake and Output 09/05/18 09/05/18 09/06/18 1414:59 22:59 06:59 IntakeIntake Total 1300 ml 1175 ml 1200 ml OutputOutput Total 1525 ml 1215 ml 15 ml BalanceBalance -225 ml -40 ml 1185 ml Exam GENERAL: Obese young gentleman tracheostomy on cool aerosol VITAL SIGNS: per chart NECK: Supple. No JVD or lymphadenopathy. CARDIAC EXAM: S1, S2. No added sounds or murmurs. CHEST: clear bilaterally, No added sounds, rales or wheezes ABDOMEN: Soft, nontender. No guarding or rebound. EXTREMITIES: No cyanosis, clubbing, edema +2 NEUROLOGIC: Generalized weakness. No focal deficits. Vent Setting Ventilator Support Mode: CPAP, PS Fraction of Inspired Oxygen pe: 40 Positive End Expiratory Pressu: 8.0 Results/Medications Result Diagram: 09/06/18 0505 09/06/18 0505 Results 24 hrs Laboratory Tests Test 09/05/18 23:00 09/06/18 05:05 09/06/18 09:45 Urine Color RED MEGAN Urine Clarity TURBID A TURBID A Urine pH 5.0 5.0 Urine Specific [place] 1.029 1.027 Urine Ketones NEGATIVE NEGATIVE Urine Nitrite NEGATIVE NEGATIVE Urine Bilirubin NEGATIVE NEGATIVE Urine Urobilinogen NEGATIVE NEGATIVE Urine Leukocyte Esterase NEGATIVE TRACE A Urine Microscopic RBC > 182 H > 182 H Urine Microscopic WBC 113 H 36 H Urine Hemoglobin 3+ H 3+ H Urine Random Creatinine 186.35 Urine Random Sodium 30 Urine Protein/Creatinine Ratio 1.58 Urine Glucose 1+ H 1+ H Urine Total Protein 296.0 H 2+ H White Blood Count 18.8 #H Red Blood Count 4.77 Hemoglobin 11.3 L Hematocrit 40.4 L Mean Corpuscular Volume 84.7 Mean Corpuscular Hemoglobin 23.7 L Mean Corpuscular Hemoglobin Concent 28.0 L Red Cell Distribution Width 20.8 H Platelet Count 297 # Mean Platelet Volume 11.3 H Immature Granulocytes % 10.400 H Neutrophils % Segmented Neutrophils % (Manual) 31 L Band Neutrophils % (Manual) 40 H Lymphocytes % Lymphocytes % (Manual) 10 L Reactive Lymphocytes % (Manual) 2 H Monocytes % Monocytes % (Manual) 4 Eosinophils % Basophils % Basophils % (Manual) 1 Metamyelocytes % (manual) 7 H Myelocytes % (Manual) 3 H Promyelocytes % (Manual) 2 H Nucleated Red Blood Cells % 1 H Immature Granulocytes # 1.960 H Neutrophils # Neutrophils # (Manual) 7.2 Band Neutrophils # 7.5 H Lymphocytes (Manual) 1.8 Lymphocytes # Reactive Lymphocytes # 0.3 H Monocytes # Monocytes # (Manual) 0.7 Eosinophils # Basophils # Basophils # (Manual) 0.1 H Metamyelocytes # 1.3 H Myelocytes # 0.5 H Promyelocytes # 0.3 H Nucleated Red Blood Cells # Platelet Estimate NORMAL Giant Platelets 1 H Polychromasia 1+ Hypochromasia 1+ Poikilocytosis 1+ Anisocytosis 1+ Target Cells 2+ Ovalocytes 1+ Sodium Level 140 Potassium Level 4.8 Chloride Level 97 Carbon Dioxide Level 32 H Anion Gap 11 Blood Urea Nitrogen 113 #H Creatinine 3.96 #H Est Glomerular Filtrat Rate mL/min 18 L Glucose Level 189 Calcium Level 11.0 H Total Bilirubin 3.4 H Direct Bilirubin 3.10 H Indirect Bilirubin 0.3 Aspartate Amino Transf (AST/SGOT) 30 Alanine Aminotransferase (ALT/SGPT) 46 Alkaline Phosphatase 86 Creatine Kinase 70 Creatine Kinase Index 0.7 Creatinine Kinase MB (Mass) 0.50 Troponin I 0.058 Total Protein 6.5 Albumin 2.9 L Globulin 3.60 H Albumin/Globulin Ratio 0.80 Hepatitis B Surface Antigen NEGATIVE Hepatitis B Surface Antibody NEGATIVE Hepatitis B Core Total Antibody NEGATIVE Hepatitis C Antibody NEGATIVE Urine Calcium Oxalate Crystals MANY A Urine Bacteria FEW A Urine Granular Casts FEW A Urine Mucus FEW A Medications Current Medications IV Flush (NS 3 ml) 3 ml PER PROTOCOL IV ; Start 08/08/18 at 17:30 Ondansetron HCl (Zofran Inj) 4 mg Q6H PRN IV NAUSEA; Start 08/08/18 at 17:30 Haloperidol (Haldol) 5 mg PRN PRN IM AGGITATED Last administered on 09/06/18 08:37; Admin Dose 5 MG; Start 08/08/18 at 22:00 Midazolam HCl 50 ml @ 1 mls/hr TITRATE IV Last administered on 08/25/18 11:49; Admin Dose 4 MLS/HR; Start 08/13/18 at 08:30 Naphazoline HCl (Clear Eyes / Naphcon) 2 drop QID BOTH EYES Last administered on 09/06/18 13:17; Admin Dose 2 DROP; Start 08/16/18 at 18:14 Acetaminophen (Tylenol Liquid) 650 mg Q6H PRN NGT MILD PAIN(1-3)OR ELEVATED TEMP Last administered on 09/06/18 08:37; Admin Dose 650 MG; Start 08/17/18 at 00:57 Levalbuterol (Xopenex Hfa) 4 puff Q4H RESP THERAPY PRN INH SHORTNESS OF BREATH Last administered on 08/27/18 05:08; Admin Dose 4 PUFF; Start 08/26/18 at 20:00 Ipratropium [place] (Atrovent Hfa) 2 puff QID RESP THERAPY PRN INH SHORTNESS OF BREATH Last administered on 08/27/18 05:08; Admin Dose 2 PUFF; Start 08/26/18 at 20:00 Lorazepam (Ativan) 1 mg Q6H PRN IV AGITATION Last administered on 09/05/18 16:09; Admin Dose 1 MG; Start 08/28/18 at 02:30 Morphine Sulfate (morphine) 2 mg Q2H PRN IV SEVERE PAIN LEVEL 7-10 Last administered on 09/05/18 17:08; Admin Dose 2 MG; Start 08/28/18 at 09:00 Metronidazole (Flagyl) 500 mg Q8 NGT Last administered on 09/05/18 14:25; Admin Dose 500 MG; Start 08/30/18 at 14:00 Scopolamine (Transderm-Scop) 1 patch Q72H TRANSDERM Last administered on 09/06/18 11:47; Admin Dose 1 PATCH; Start 08/31/18 at 11:30 Methylprednisolone Sodium Succinate (Solu-Medrol) 40 mg DAILY IV Last administered on 09/06/18 08:37; Admin Dose 40 MG; Start 09/02/18 at 09:00 Docusate Sodium (Colace Liquid Cup) 200 mg BID NGT Last administered on 09/05/18at 08:15; Admin Dose 200 MG; Start 09/04/18 at 21:00 Polyethylene Glycol (Miralax) 17 gm DAILY GTB ; Start 09/05/18 at 10:30 Quetiapine Fumarate (Seroquel) 25 mg BID GTB Last administered on 09/06/18at 08:37; Admin Dose 25 MG; Start 09/05/18 at 21:00 Tigecycline 50 mg/ Sodium Chloride 100 ml @ 200 mls/hr Q12 IVPB Last administered on 09/06/18at 08:59; Admin Dose 200 MLS/HR; Start 09/05/18 at 23:00 Dextrose/Sodium Chloride 1,000 ml @ 125 mls/hr Q8H IV Last administered on 09/06/18at 07:00; Admin Dose 125 MLS/HR; Start 09/05/18 at 12:30 Ceftazidime 50 ml @ 100 mls/hr Q24H IVPB ; Start 09/07/18 at 06:00 Famotidine (Pepcid) 20 mg DAILY GTB ; Start 09/07/18 at 09:00 Heparin Sodium (Porcine) (Heparin (5000 Units/1ml)) 5,000 unit Q12 SC ; Start 09/06/18 at 21:00 Assessment/Plan Hospital Course (Demo Recall) IMP: 1. Acute on chronic hypoxemic and hypercapnic respiratory failure, failed multiple weaning trials status post tracheostomy. Significant secretions, 2. Component of diastolic dysfunction 3. History of obesity hypoventilation syndrome and probable obstructive sleep apnea 4. Leukocytosis With ongoing fevers and persistent diarrhea. 5. Acute renal failure. RECS: 1. Continue trach collar as tolerated tracheostomy site care, 2. Continue ID recommendations 3. Tube feeding as tolerated, currently on hold GI evaluation 4. Acute renal failure now likely requiring hemodialysis 5. Placement of hemodialysis catheter 6. Fluid challenge for tachycardia and worsening renal failure. Prognosis guarded 40 min cc time JULIETH PUENTE MD, [facility] Sep 06, 2018 14:24
--- NOTE | 2018-09-06 15:13 | CONS ---
Assessment/Plan Assessment/Plan Hospital Course 32 yo morbidly obese male with multiple comorbidities who is admitted to the [facility] ICU for management of acute respiratory failure...now s/p trach He is noted to be protractedly encephalopathic, for which neurology is consulted. PNA+ MARTINE worsening On daily iv steroids, which likely precipitate/exacerbate psychosis Receiving multiple psychotropics.. Most clinically consistent with an acute and multifactorial toxic-metabolic encephalopathy. A focal HEDIS MANAGER process is less likely. Patient's body habitus is reportedly not amendable to neuroimaging P: [place] as necessary Wean steroids as soon as able Agree w/ low dose seroquel prn in the short-term, to be titrated to effect PT/OT/ST when able to participate Other medical management per primary Will follow clinically Consultation Date/Type/Reason Admit Date/Time Aug 08, 2018 at 17:18 Type of Consult Neurology Requesting Provider: TATI CARDOZA Date/Time of Note DATE: 09/06/18 TIME: 15:11 24 HR Interval Summary Free Text/Dictation Continues icu care Exam Vital Signs Vitals Vital Signs Date Temp Pulse Resp B/P (MAP) Pulse Ox O2 O2 Flow FiO2 Time Delivery Rate 09/06/18 99.8 131 27 95/63 (74) 91 Trach 12:00 Collar 09/06/18 10.0 40 10:50 Intake and Output 09/05/18 09/05/18 09/06/18 1515:00 23:00 07:00 IntakeIntake Total 1450 ml 1150 ml 1275 ml OutputOutput Total 2500 ml 220 ml 10 ml BalanceBalance -1050 ml 930 ml 1265 ml Exam PE: Gen Appearance: No Apparent Distress HEENT: Intubated Cardiovascular: Tachycardic Abdomen: Soft, Obese Extremities: Dry NE: The patient was obtunded and nonverbal. He did not follow commands. He grimaced to noxious stimulation. Cranial nerve examination was limited by mental status. Pupils were equal and reactive to light. There was no afferent pupillary defect. Funduscopic examination was limited. Face was grossly symmetric, w/ present corneal and cough reflexes. Tone was normal. Muscle bulk was normal. I did not see fasciculations. The patient withdrew mildly to noxious stimulation x 4. Coordination and gait testing was limited by mental status. Arm and leg reflexes were within normal limits and symmetric. Grimm's sign was absent. Plantar responses were flexor. RAYMOND HERNANDEZ Sep 06, 2018 15:13
--- NOTE | 2018-09-06 18:46 | CONS ---
Assessment/Plan Assessment/Plan Assessment/Plan (Daily) Small bowel obstruction of uncertain etiology Will obtain limited small bowel series tomorrow. Would benefit from CT but unable to perform due to size Nonacute abdomen so can manage conservatively Consultation Date/Type/Reason Admit Date/Time Aug 08, 2018 at 17:18 Date/Time of Note DATE: 09/06/18 TIME: 18:32 Hx of Present Illness The patient is a 32-year-old male who was in his usual state of health until a few weeks ago where he had an exacerbation of COPD. Since then he has been hospitalized. He is required a trach for ventilator support. He is required a PEG tube. He was tolerating tube feeds but over the last few days. His abdomen became distended and abdominal series performed which revealed a possible small bowel obstruction. It was recommended to undergo a CT but he is too large to into the CT scanner. I was called for consultation. The patient is nonverbal and the history is from the chart as well as the nurse. Patient has multiple medical problems acute and chronic. Past Medical History Medical History: other (COPD, severe obesity, sepsis with bilateral pneumonias,, encephalopathy, respiratory failure, requiring trach, acute respiratory insufficiency) Home Meds No Active Prescriptions or Reported Meds Medications Current Medications IV Flush (NS 3 ml) 3 ml PER PROTOCOL IV ; Start 08/08/18 at 17:30 Ondansetron HCl (Zofran Inj) 4 mg Q6H PRN IV NAUSEA; Start 08/08/18 at 17:30 Midazolam HCl 50 ml @ 1 mls/hr TITRATE IV Last administered on 08/25/18at 11:49; Admin Dose 4 MLS/HR; Start 08/13/18 at 08:30 Naphazoline HCl (Clear Eyes / Naphcon) 2 drop QID BOTH EYES Last administered o n 09/06/18at 17:23; Admin Dose 2 DROP; Start 08/16/18 at 18:14 Acetaminophen (Tylenol Liquid) 650 mg Q6H PRN NGT MILD PAIN(1-3)OR ELEVATED TEMP Last administered on 09/06/18at 16:03; Admin Dose 650 MG; Start 08/17/18 at 00:57 Levalbuterol (Xopenex Hfa) 4 puff Q4H RESP THERAPY PRN INH SHORTNESS OF BREATH Last administered on 08/27/18at 05:08; Admin Dose 4 PUFF; Start 08/26/18 at 20:00 Ipratropium Tower (Atrovent Hfa) 2 puff QID RESP THERAPY PRN INH SHORTNESS OF BREATH Last administered on 08/27/18 05:08; Admin Dose 2 PUFF; Start 08/26/18 at 20:00 Lorazepam (Ativan) 1 mg Q6H PRN IV AGITATION Last administered on 09/05/18 16:09; Admin Dose 1 MG; Start 08/28/18 at 02:30 Morphine Sulfate (morphine) 2 mg Q2H PRN IV SEVERE PAIN LEVEL 7-10 Last administered on 09/05/18 17:08; Admin Dose 2 MG; Start 08/28/18 at 09:00 Metronidazole (Flagyl) 500 mg Q8 NGT Last administered on 09/06/18 14:00; Admin Dose 500 MG; Start 08/30/18 at 14:00 Scopolamine (Transderm-Scop) 1 patch Q72H TRANSDERM Last administered on 09/06/18 11:47; Admin Dose 1 PATCH; Start 08/31/18 at 11:30 Methylprednisolone Sodium Succinate (Solu-Medrol) 40 mg DAILY IV Last administered on 09/06/18 08:37; Admin Dose 40 MG; Start 09/02/18 at 09:00 Docusate Sodium (Colace Liquid Cup) 200 mg BID NGT Last administered on 08:15; Admin Dose 200 MG; Start 09/04/18 at 21:00 Polyethylene Glycol (Miralax) 17 gm DAILY GTB ; Start 09/05/18 at 10:30 Quetiapine Fumarate (Seroquel) 25 mg BID GTB Last administered on 09/06/18 08:37; Admin Dose 25 MG; Start 09/05/18 at 21:00 Tigecycline 50 mg/ Sodium Chloride 100 ml @ 200 mls/hr Q12 IVPB Last administered on 09/06/18 08:59; Admin Dose 200 MLS/HR; Start 09/05/18 at 23:00 Dextrose/Sodium Chloride 1,000 ml @ 125 mls/hr Q8H IV Last administered on 09/06/18 07:00; Admin Dose 125 MLS/HR; Start 09/05/18 at 12:30 Ceftazidime 50 ml @ 100 mls/hr Q24H IVPB ; Start 09/07/18 at 06:00 Famotidine (Pepcid) 20 mg DAILY GTB ; Start 09/07/18 at 09:00 Heparin Sodium (Porcine) (Heparin (5000 Units/1ml)) 5,000 unit Q12 SC ; Start 09/06/18 at 21:00 IV Flush (NS 10 ml) 10 ml PRN PRN IV IV PROTOCOL; Start 09/06/18 at 17:30 Allergies: Coded Allergies: No Known Drug Allergies (Verified Allergy, Mild, 08/30/18) Past Surgical History Past Surgical Hx: no surgical history Family History Significant Family History: no pertinent family hx Social History Alcohol Use: none Smoking Status: Former smoker Drug Use: none Exam/Review of Systems Exam Vitals Vital Signs Date Temp Pulse Resp B/P (MAP) Pulse Ox O2 O2 Flow FiO2 Time Delivery Rate 09/06/18 135 24 104/61 93 Trach 18:00 (75) Collar 09/06/18 10.0 40 17:48 09/06/18 99.8 16:44 Intake and Output 09/05/18 09/05/18 09/06/18 1515:00 23:00 07:00 IntakeIntake Total 1450 ml 1150 ml 1275 ml OutputOutput Total 2500 ml 220 ml 10 ml BalanceBalance -1050 ml 930 ml 1265 ml Constitutional: non-verbal, obese Head: normocephalic ENMT: nl external ears & nose, nl lips & teeth, nl nasal mucosa & septum Neck: supple, other (Tracheostomy in place) Respiratory: diminished breath sounds Cardiovascular: regular rate and rhythm Gastrointestinal: soft, non-tender Neurological: GRAIN SACKER II-XII intact Skin: nl turgor Results Result Diagram: 09/06/18 0505 09/06/18 0505 Results 24hrs Laboratory Tests Test 09/05/18 23:00 09/06/18 05:05 09/06/18 09:45 09/06/18 15:00 Urine Color RED MEGAN Urine Clarity TURBID A TURBID A Urine pH 5.0 5.0 Urine Specific 1.029 1.027 [place] Urine Ketones NEGATIVE NEGATIVE Urine Nitrite NEGATIVE NEGATIVE Urine Bilirubin NEGATIVE NEGATIVE Urine Urobilinogen NEGATIVE NEGATIVE Urine Leukocyte NEGATIVE TRACE A Esterase Urine Microscopic > 182 H > 182 H RBC Urine Microscopic 113 H 36 H WBC Urine Hemoglobin 3+ H 3+ H Urine Random 186.35 Creatinine Urine Random Sodium 30 Urine 1.58 Protein/Creatinine Ratio Urine Glucose 1+ H 1+ H Urine Total Protein 296.0 H 2+ H White Blood Count 18.8 #H Red Blood Count 4.77 Hemoglobin 11.3 L Hematocrit 40.4 L Mean Corpuscular 84.7 Volume Mean Corpuscular 23.7 L Hemoglobin Mean Corpuscular 28.0 L Hemoglobin Concent Red Cell 20.8 H Distribution Width Platelet Count 297 # Mean Platelet Volume 11.3 H Immature 10.400 H Granulocytes % Neutrophils % Segmented 31 L Neutrophils % (Manual) Band Neutrophils % 40 H (Manual) Lymphocytes % Lymphocytes % 10 L (Manual) Reactive Lymphocytes 2 H % (Manual) Monocytes % Monocytes % (Manual) 4 Eosinophils % Basophils % Basophils % (Manual) 1 Metamyelocytes % 7 H (manual) Myelocytes % 3 H (Manual) Promyelocytes % 2 H (Manual) Nucleated Red Blood 1 H Cells % Immature 1.960 H Granulocytes # Neutrophils # Neutrophils # 7.2 (Manual) Band Neutrophils # 7.5 H Lymphocytes (Manual) 1.8 Lymphocytes # Reactive Lymphocytes 0.3 H # Monocytes # Monocytes # (Manual) 0.7 Eosinophils # Basophils # Basophils # (Manual) 0.1 H Metamyelocytes # 1.3 H Myelocytes # 0.5 H Promyelocytes # 0.3 H Nucleated Red Blood Cells # Platelet Estimate NORMAL Giant Platelets 1 H Polychromasia 1+ Hypochromasia 1+ Poikilocytosis 1+ Anisocytosis 1+ Target Cells 2+ Ovalocytes 1+ Sodium Level 140 Potassium Level 4.8 Chloride Level 97 Carbon Dioxide Level 32 H Anion Gap 11 Blood Urea Nitrogen 113 #H Creatinine 3.96 #H Est Glomerular 18 L Filtrat Rate mL/min Glucose Level 189 Calcium Level 11.0 H Total Bilirubin 3.4 H Direct Bilirubin 3.10 H Indirect Bilirubin 0.3 Aspartate Amino 30 Transf (AST/SGOT) Alanine 46 Aminotransferase (AL T/SGPT) Alkaline Phosphatase 86 Creatine Kinase 70 72 Creatine Kinase 0.7 0.9 Index Creatinine Kinase MB 0.50 0.64 (Mass) Troponin I 0.058 0.036 Total Protein 6.5 Albumin 2.9 L Globulin 3.60 H Albumin/Globulin 0.80 Ratio Hepatitis B Surface NEGATIVE Antigen Hepatitis B Surface NEGATIVE Antibody Hepatitis B Core NEGATIVE Total Antibody Hepatitis C Antibody NEGATIVE Urine Calcium MANY A Oxalate Crystals Urine Bacteria FEW A Urine Granular Casts FEW A Urine Mucus FEW A Imaging Imaging tient: HOWARD MIRANDA : 1985 Age: 32 Sex: M MR #: [id number] DOS: 09/05/18 1022 Ordering MD: TATI CARDOZA [facility]: XR Abdomen CLINICAL INDICATION: Distended TECHNIQUE: An AP supine radiograph of the abdomen was submitted. COMPARISON: 08/09/2018 FINDINGS: The enteric catheter is no longer evident. A gastrostomy tube now projects through the upper abdomen. A Santiago catheter projects to the pelvis. There are a couple of air distended segments of small bowel within the right abdomen suspicious for small bowel bowel obstruction. There is no significant air or stool seen within colon. There is increased density with a paucity of gas within the left abdomen. The possibility of a mass, fluid collection, or hematoma cannot be excluded. No pathological calcification is identified. The osseous elements appear unremarkable. Discoid atelectasis is seen at the lung bases. IMPRESSION: 1. Interval removal of the enteric catheter. A gastrostomy tube and a Santiago catheter are now seen to be in place. 2. There are now air distended elongated segments of small bowel seen in the right abdomen with a lack of colonic air suspicious for small bowel obstruction. 3. There is now increased density in a paucity of air within the left abdomen raising the possibility of a mass, fluid collection or hematoma. If clinically indicated, a CT may be useful to further evaluate. Findings of small bowel obstruction with a possible mass, fluid collection, or hematoma in the left abdomen were telephoned by Wes Mccoy MD to Dr. Cardoza on 09/05/2018 and 1137 hours. Physician Vinnie Date Time Electronically viewed and signed by Physician Vinnie on 09/05/2018 11:46 RH/ CC: TATI CARDOZA [id number] Medications Medication Current Medications IV Flush (NS 3 ml) 3 ml PER PROTOCOL IV ; Start 08/08/18 at 17:30 Ondansetron HCl (Zofran Inj) 4 mg Q6H PRN IV NAUSEA; Start 08/08/18 at 17:30 Midazolam HCl 50 ml @ 1 mls/hr TITRATE IV Last administered on 08/25/18 11:49; Admin Dose 4 MLS/HR; Start 08/13/18 at 08:30 Naphazoline HCl (Clear Eyes / Naphcon) 2 drop QID BOTH EYES Last administered on 09/06/18 17:23; Admin Dose 2 DROP; Start 08/16/18 at 18:14 Acetaminophen (Tylenol Liquid) 650 mg Q6H PRN NGT MILD PAIN(1-3)OR ELEVATED TEMP Last administered on 09/06/18 16:03; Admin Dose 650 MG; Start 08/17/18 at 00:57 Levalbuterol (Xopenex Hfa) 4 puff Q4H RESP THERAPY PRN INH SHORTNESS OF BREATH Last administered on 08/27/18 05:08; Admin Dose 4 PUFF; Start 08/26/18 at 20:00 Ipratropium [place] (Atrovent Hfa) 2 puff QID RESP THERAPY PRN INH SHORTNESS OF BREATH Last administered on 08/27/18 05:08; Admin Dose 2 PUFF; Start 08/26/18 at 20:00 Lorazepam (Ativan) 1 mg Q6H PRN IV AGITATION Last administered on 09/05/18 16:09; Admin Dose 1 MG; Start 08/28/18 at 02:30 Morphine Sulfate (morphine) 2 mg Q2H PRN IV SEVERE PAIN LEVEL 7-10 Last administered on 09/05/18 17:08; Admin Dose 2 MG; Start 08/28/18 at 09:00 Metronidazole (Flagyl) 500 mg Q8 NGT Last administered on 09/06/18 14:00; Admin Dose 500 MG; Start 08/30/18 at 14:00 Scopolamine (Transderm-Scop) 1 patch Q72H TRANSDERM Last administered on 09/06/18 11:47; Admin Dose 1 PATCH; Start 08/31/18 at 11:30 Methylprednisolone Sodium Succinate (Solu-Medrol) 40 mg DAILY IV Last administered on 09/06/18 08:37; Admin Dose 40 MG; Start 09/02/18 at 09:00 Docusate Sodium (Colace Liquid Cup) 200 mg BID NGT Last administered on 09/05/18at 08:15; Admin Dose 200 MG; Start 09/04/18 at 21:00 Polyethylene Glycol (Miralax) 17 gm DAILY GTB ; Start 09/05/18 at 10:30 Quetiapine Fumarate (Seroquel) 25 mg BID GTB Last administered on 09/06/18at 08:37; Admin Dose 25 MG; Start 09/05/18 at 21:00 Tigecycline 50 mg/ Sodium Chloride 100 ml @ 200 mls/hr Q12 IVPB Last administered on 09/06/18at 08:59; Admin Dose 200 MLS/HR; Start 09/05/18 at 23:00 Dextrose/Sodium Chloride 1,000 ml @ 125 mls/hr Q8H IV Last administered on 09/06/18at 07:00; Admin Dose 125 MLS/HR; Start 09/05/18 at 12:30 Ceftazidime 50 ml @ 100 mls/hr Q24H IVPB ; Start 09/07/18 at 06:00 Famotidine (Pepcid) 20 mg DAILY GTB ; Start 09/07/18 at 09:00 Heparin Sodium (Porcine) (Heparin (5000 Units/1ml)) 5,000 unit Q12 SC ; Start 09/06/18 at 21:00 IV Flush (NS 10 ml) 10 ml PRN PRN IV IV PROTOCOL; Start 09/06/18 at 17:30 CHRIS BARCENAS MD Sep 06, 2018 18:43
[2018-09-06] MEDS: HEPARIN 5,000 UNIT/1 ML VIAL SC SCH (20:40)
--- NOTE | 2018-09-06 20:40 | PN ---
Date/Time of Note Date/Time of Note DATE: 09/06/18 TIME: 20:40 Assessment/Plan Lines/Catheters IV Catheter Type (from Nrsg): PICC Line Santiago in Place (from Nrsg): Yes Assessment/Plan Assessment/Plan Respiratory failure Status post trach Patient improving Will remove sutures Subjective 24 Hr Interval Summary Constitutional: improved Pain Control: mild Exam/Review of Systems Vital Signs Vitals Vital Signs Date Temp Pulse Resp B/P (MAP) Pulse Ox O2 O2 Flow FiO2 Time Delivery Rate 09/06/18 99.1 134 32 116/72 94 Trach 20:00 (87) Collar 09/06/18 10.0 40 17:48 Intake and Output 09/05/18 09/05/18 09/06/18 1515:00 23:00 07:00 IntakeIntake Total 1450 ml 1150 ml 1275 ml OutputOutput Total 2500 ml 220 ml 10 ml BalanceBalance -1050 ml 930 ml 1265 ml Exam Eyes: nl conjunctiva, EOMI, nl lids, nl sclera ENMT: nl external ears & nose, nl lips & teeth, nl nasal mucosa & septum, mucosa pink and moist Neck: supple, non-tender Respiratory: clear to auscultation, normal air movement Cardiovascular: regular rate and rhythm, nl pulses Gastrointestinal: soft, nl liver, spleen, non-tender Musculoskeletal: nl extremities to inspection, nl gait and stance Results Result Diagram: 09/06/18 0505 09/06/18 0505 TIMMY DALAL MD Sep 06, 2018 20:40
[2018-09-07] VITALS (43 sets, daily range): BP systolic 88–137; BP diastolic 53–86; PULSE 104–128; RESP 20–45
[2018-09-07] MEDS: ACETAMINOPHEN 650MG/20.3ML CUP NGT PRN (00:16)
[2018-09-07] MEDS: DEXTROSE 5%-0.45% NACL 1,000 ML IV SCH ×3 (00:16→18:09)
[2018-09-07] MEDS ORDERED: IPRATROPIUM (NEB) 0.5 MG/2.5 ML AMP HHN SCH (02:00)
[2018-09-07] MEDS: ALBUTEROL/IPRATROPIUM (NEB) 3 ML AMP HHN SCH ×4 (04:35→19:35)
[2018-09-07] MEDS: metroNIDAZOLE 500 MG TAB NGT SCH ×3 (05:46→21:12)
[2018-09-07] MEDS: CEFTAZIDIME 1GM/50 ML (PMX) 50 ML IVPB SCH (05:48)
[2018-09-07] MEDS ORDERED: DIATR MEGLU/DIATRIZOATE SODIUM 120 ML BTL PO ONE (06:00)
--- NOTE | 2018-09-07 06:28 | PN ---
Date/Time of Note Date/Time of Note DATE: 09/07/18 TIME: 06:22 Assessment/Plan VTE Prophylaxis Risk score (from Nsg)>0 risk: 10 Pharmacological prophylaxis: LMWH Lines/Catheters IV Catheter Type (from Nrsg): PICC Line Central line still needed: Yes Urinary Cath still in place: Yes Reason Cath still needed: other (indicate) Assessment/Plan Hospital Course Subjective : - still having fevers Objective : Gen: Morbidly obese man lying in bed, opens eyes, attempts to speak Neck: Obese, trach, HEENT: [place], scleral icterus Card: distant heart sounds Pulm: distant lung sounds. coarse Abd: Morbidly obese, soft, nontender, G-tube in place Ext: Bilateral LE chronic venous stasis changes, no edema, skin discoloration Neuro: No focal deficits, generalized lethargy, can barely raise his legs from the bed, confused , pulling at lines assessment and plan: 32yo Morbidly obese male who had presented with shortness of breath currently managed as follows: 1. Hypoxic/hypercapnic respiratory failure: -Secondary to ANDREW, exacerbated by pneumonia, underlying COPD with blebs now seen on CXR -Intubated , status post trach 08/24 -Currently off the ventilator, remains in ICU due to requiring frequent suctioning and copious secretions -steroids added 09/05/18 2. Encephalopathy, toxic metabolic, r/o hypoxic ischemic -patient remains confused intermittently, may have suffered a brain insult, unable to get MRI or CT 08/19 weight -appreciate neurology consult, will follow recs -attempted to cut back on dosing for Seroquel, but patient is still quite confused, Switched to BID dosing 3. Sepsis with Bilateral pneumonia -Cultures grew MDR Acinetobacter, now on inhaled colistin -still spiking fevers -CXR shows improvement in infiltrates, repeat blood cultures negative so far, urine and resp cultures pending -LE dopplers negative for DVT 4. Acute renal insufficiency likely secondary to overdiuresis -lasix has been d/c -urine output is reducing, -likely ATN -Appreciate Nephrology consult, may likely require short course of HD -schaefer was changed to r/o obstruction 09/06/18 5. SBO and possible mass -Continue to hold tube feeds -Continue suction to PEG , 2.7L pulled out 09/05/18 -await surgical review and recs -continue IV hydration -SBFT? but I'm hesitant d/t concern for possible mass, will try CT again 6. Functional dysphagia status post PEG -Secondary to trach 7.. Chronic hypochromic anemia -stable, monitor 8. Severe Obesity -high risk for skin breakdown, -controlled calories while on tube feeds -has lost about 40 pounds so far since admission per nursing 7. Debility and lethargy -PT limited by patient's mental status 8. Hyperbilirubinemia - predominantly direct, alkaline phosphatase is normal -liver USS showed diffuse fatty liver -am labs with hepatitis screen pending 9. Steroid induced leucocytosis -monitor 10. Tachycardia -related to fevers per cardio, appreciate input Plan -remains in ICU for now d/t tenuous status and requiring repeated intervention -awaiting surgical review CRITICAL CARE TIME: >35 mins Result Diagram: 09/07/18 0453 09/06/18 0505 Results 24hrs Laboratory Tests Test 09/06/18 09:45 09/06/18 15:00 09/06/18 21:32 09/07/18 04:53 Urine Color MEGAN Urine Clarity TURBID A Urine pH 5.0 Urine Specific 1.027 [place] Urine Ketones NEGATIVE Urine Nitrite NEGATIVE Urine Bilirubin NEGATIVE Urine Urobilinogen NEGATIVE Urine Leukocyte TRACE A Esterase Urine Microscopic > 182 H RBC Urine Microscopic 36 H WBC Urine Calcium MANY A Oxalate Crystals Urine Bacteria FEW A Urine Granular Casts FEW A Urine Mucus FEW A Urine Hemoglobin 3+ H Urine Glucose 1+ H Urine Total Protein 2+ H Creatine Kinase 72 101 Creatine Kinase 0.9 0.7 Index Creatinine Kinase MB 0.64 0.66 (Mass) Troponin I 0.036 0.037 White Blood Count 24.5 #H Red Blood Count 4.42 L Hemoglobin 10.3 L Hematocrit 37.6 L Mean Corpuscular 85.1 Volume Mean Corpuscular 23.3 L Hemoglobin Mean Corpuscular 27.4 L Hemoglobin Concent Red Cell 21.3 H Distribution Width Platelet Count 254 Mean Platelet Volume 11.5 H Immature 11.200 H Granulocytes % Neutrophils % Lymphocytes % Monocytes % Eosinophils % Basophils % Nucleated Red Blood 0.4 H Cells % Immature 2.740 H Granulocytes # Neutrophils # Lymphocytes # Monocytes # Eosinophils # Basophils # Nucleated Red Blood Cells # Exam/Review of Systems Exam Vitals Vital Signs Date Temp Pulse Resp B/P (MAP) Pulse Ox O2 O2 Flow FiO2 Time Delivery Rate 09/07/18 121 25 110/64 93 Trach 06:00 (79) Collar 09/07/18 10.0 40 04:47 09/07/18 100.6 04:00 Intake and Output 09/06/18 09/06/18 09/07/18 1515:00 23:00 07:00 IntakeIntake Total 1100 ml 725 ml 850 ml OutputOutput Total 0 ml 0 ml 3 ml BalanceBalance 1100 ml 725 ml 847 ml Results Results 24hrs Laboratory Tests Test 09/06/18 09:45 09/06/18 15:00 09/06/18 21:32 09/07/18 04:53 Urine Color MEGAN Urine Clarity TURBID A Urine pH 5.0 Urine Specific 1.027 [place] Urine Ketones NEGATIVE Urine Nitrite NEGATIVE Urine Bilirubin NEGATIVE Urine Urobilinogen NEGATIVE Urine Leukocyte TRACE A Esterase Urine Microscopic > 182 H RBC Urine Microscopic 36 H WBC Urine Calcium MANY A Oxalate Crystals Urine Bacteria FEW A Urine Granular Casts FEW A Urine Mucus FEW A Urine Hemoglobin 3+ H Urine Glucose 1+ H Urine Total Protein 2+ H Creatine Kinase 72 101 Creatine Kinase 0.9 0.7 Index Creatinine Kinase MB 0.64 0.66 (Mass) Troponin I 0.036 0.037 White Blood Count 24.5 #H Red Blood Count 4.42 L Hemoglobin 10.3 L Hematocrit 37.6 L Mean Corpuscular 85.1 Volume Mean Corpuscular 23.3 L Hemoglobin Mean Corpuscular 27.4 L Hemoglobin Concent Red Cell 21.3 H Distribution Width Platelet Count 254 Mean Platelet Volume 11.5 H Immature 11.200 H Granulocytes % Neutrophils % Lymphocytes % Monocytes % Eosinophils % Basophils % Nucleated Red Blood 0.4 H Cells % Immature 2.740 H Granulocytes # Neutrophils # Lymphocytes # Monocytes # Eosinophils # Basophils # Nucleated Red Blood Cells # Medications Medication Current Medications IV Flush (NS 3 ml) 3 ml PER PROTOCOL IV ; Start 08/08/18 at 17:30 Ondansetron HCl (Zofran Inj) 4 mg Q6H PRN IV NAUSEA; Start 08/08/18 at 17:30 Midazolam HCl 50 ml @ 1 mls/hr TITRATE IV Last administered on 08/25/18at 11:49; Admin Dose 4 MLS/HR; Start 08/13/18 at 08:30 Naphazoline HCl (Clear Eyes / Naphcon) 2 drop QID BOTH EYES Last administered on 09/06/18 20:37; Admin Dose 2 DROP; Start 08/16/18 at 18:14 Acetaminophen (Tylenol Liquid) 650 mg Q6H PRN NGT MILD PAIN(1-3)OR ELEVATED T EMP Last administered on 09/07/18 00:16; Admin Dose 650 MG; Start 08/17/18 at 00:57 Lorazepam (Ativan) 1 mg Q6H PRN IV AGITATION Last administered on 09/05/18 16:09; Admin Dose 1 MG; Start 08/28/18 at 02:30 Morphine Sulfate (morphine) 2 mg Q2H PRN IV SEVERE PAIN LEVEL 7-10 Last administered on 09/05/18 17:08; Admin Dose 2 MG; Start 08/28/18 at 09:00 Metronidazole (Flagyl) 500 mg Q8 NGT Last administered on 09/07/18 05:46; Admin Dose 500 MG; Start 08/30/18 at 14:00 Scopolamine (Transderm-Scop) 1 patch Q72H TRANSDERM Last administered on 09/06/18 11:47; Admin Dose 1 PATCH; Start 08/31/18 at 11:30 Methylprednisolone Sodium Succinate (Solu-Medrol) 40 mg DAILY IV Last administered on 09/06/18 08:37; Admin Dose 40 MG; Start 09/02/18 at 09:00 Docusate Sodium (Colace Liquid Cup) 200 mg BID NGT Last administered on 09/06/18 20:39; Admin Dose 200 MG; Start 09/04/18 at 21:00 Polyethylene Glycol (Miralax) 17 gm DAILY GTB ; Start 09/05/18 at 10:30 Quetiapine Fumarate (Seroquel) 25 mg BID GTB Last administered on 09/06/18 20:39; Admin Dose 25 MG; Start 09/05/18 at 21:00 Tigecycline 50 mg/ Sodium Chloride 100 ml @ 200 mls/hr Q12 IVPB Last administered on 09/06/18 20:44; Admin Dose 200 MLS/HR; Start 09/05/18 at 23:00 Dextrose/Sodium Chloride 1,000 ml @ 125 mls/hr Q8H IV Last administered on 09/07/18 00:16; Admin Dose 125 MLS/HR; Start 09/05/18 at 12:30 Ceftazidime 50 ml @ 100 mls/hr Q24H IVPB Last administered on 09/07/18at 05:48; Admin Dose 100 MLS/HR; Start 09/07/18 at 06:00 Famotidine (Pepcid) 20 mg DAILY GTB ; Start 09/07/18 at 09:00 Heparin Sodium (Porcine) (Heparin (5000 Units/1ml)) 5,000 unit Q12 SC Last administered on 09/06/18at 20:40; Admin Dose 5,000 UNIT; Start 09/06/18 at 21:00 IV Flush (NS 10 ml) 10 ml PRN PRN IV IV PROTOCOL; Start 09/06/18 at 17:30 Albuterol/ Ipratropium (Duoneb) 3 ml Q6H RESP THERAPY HHN Last administered on 09/07/18at 04:35; Admin Dose 3 ML; Start 09/07/18 at 02:00 TATI CARDOZA Sep 07, 2018 06:28
[2018-09-07] MEDS: FAMOTIDINE 20 MG TAB GTB SCH (08:33)
[2018-09-07] MEDS: NAPHAZOLINE 0.012% 15 ML OPH BOTH EYES SCH ×4 (08:33→21:10)
[2018-09-07] MEDS: METHYLPREDNISOLONE 40 MG INJ IV SCH (08:33)
[2018-09-07] MEDS: DOCUSATE SODIUM 10 MG/ML (10ML CUP) NGT SCH ×2 (08:33→21:12)
[2018-09-07] MEDS: QUETIAPINE 25 MG TAB GTB SCH ×2 (08:33→21:12)
[2018-09-07] MEDS: POLYETHYLENE GLYCOL 17 GM PACKET GTB SCH (08:34)
[2018-09-07] MEDS: TIGECYCLINE 50 MG in SOD CHLORIDE 0.9% 100 ML IVPB SCH ×2 (08:35→21:30)
[2018-09-07] MEDS: HEPARIN 5,000 UNIT/1 ML VIAL SC SCH ×2 (08:36→21:12)
--- NOTE | 2018-09-07 09:16 | CONS ---
Assessment/Plan Assessment/Plan Hospital Course (Demo Recall) 1. Acute renal failure. This patient has had a rise in his serum creatinine over the past 6 days with a decrease in his urine output. He is now anuric. His creatinine is up to 5.25 , BUN is 134 his potassium is elevated at 5.4. He he has a sinus tachycardia with heart rate as high as 115 . His BP is higher today . I did speak to the patient's mother and 1 of his brothers yesterday and I told them that if his kidney function continues to decrease then he would need hemodialysis. Today his BUN, creatinine and potassium are all higher and I recommend that he have hemodialysis today. I explained the possible risk of hemodialysis including hypotension and cardiac arrest. They understand and are willing to accept these risks. I will consult a vascular surgeon to place a dialysis catheter. I have ordered hemodialysis for today. 2. Respiratory failure 3. Fever, he is being treated with broad-spectrum antibiotics. 4. Morbid obesity 5. Encephalopathy Consultation Date/Type/Reason Admit Date/Time Aug 08, 2018 at 17:18 Initial Consult Date 09/06/18 Type of Consult Nephrology Requesting Provider: TATI CARDOZA Date/Time of Note DATE: 09/07/18 TIME: 09:03 24 HR Interval Summary Free Text/Dictation This patient is being seen in nephrologic follow-up. The patient is in the intensive care unit. He is nonverbal. He has a tracheostomy in place. Subjective hx not possible: pt non-verbal Exam/Review of Systems Exam Vitals Vital Signs Date Temp Pulse Resp B/P (MAP) Pulse Ox O2 O2 Flow FiO2 Time Delivery Rate 09/07/18 118 08:00 09/07/18 25 110/64 93 Trach 06:00 (79) Collar 09/07/18 10.0 40 04:47 09/07/18 100.6 04:00 Intake and Output 09/06/18 09/06/18 09/07/18 1515:00 23:00 07:00 IntakeIntake Total 1100 ml 725 ml 1025 ml OutputOutput Total 0 ml 0 ml 3 ml BalanceBalance 1100 ml 725 ml 1022 ml Constitutional: non-verbal, frail, obese Psych: confusion Respiratory: diminished breath sounds Cardiovascular: regular rate and rhythm, edema Gastrointestinal: soft Extremities: edema Results Result Diagram: 09/07/18 0453 09/07/18 0600 Results 24hrs Laboratory Tests Test 09/06/18 09:45 09/06/18 15:00 09/06/18 21:32 09/07/18 04:53 Urine Color MEGAN Urine Clarity TURBID A Urine pH 5.0 Urine Specific 1.027 [place] Urine Ketones NEGATIVE Urine Nitrite NEGATIVE Urine Bilirubin NEGATIVE Urine Urobilinogen NEGATIVE Urine Leukocyte TRACE A Esterase Urine Microscopic > 182 H RBC Urine Microscopic 36 H WBC Urine Calcium MANY A Oxalate Crystals Urine Bacteria FEW A Urine Granular Casts FEW A Urine Mucus FEW A Urine Hemoglobin 3+ H Urine Glucose 1+ H Urine Total Protein 2+ H Creatine Kinase 72 101 Creatine Kinase 0.9 0.7 Index Creatinine Kinase MB 0.64 0.66 (Mass) Troponin I 0.036 0.037 White Blood Count 24.5 #H Red Blood Count 4.42 L Hemoglobin 10.3 L Hematocrit 37.6 L Mean Corpuscular 85.1 Volume Mean Corpuscular 23.3 L Hemoglobin Mean Corpuscular 27.4 L Hemoglobin Concent Red Cell 21.3 H Distribution Width Platelet Count 254 Mean Platelet Volume 11.5 H Immature 11.200 H Granulocytes % Neutrophils % Lymphocytes % Monocytes % Eosinophils % Basophils % Nucleated Red Blood 0.4 H Cells % Immature 2.740 H Granulocytes # Neutrophils # Lymphocytes # Monocytes # Eosinophils # Basophils # Nucleated Red Blood Cells # Test 09/07/18 06:00 09/07/18 07:29 Sodium Level 138 Potassium Level 5.4 H Chloride Level 97 Carbon Dioxide Level 25 Anion Gap 16 H Blood Urea Nitrogen 134 H Creatinine 5.25 H Est Glomerular 13 L Filtrat Rate mL/min Glucose Level 186 Calcium Level 11.0 H Total Bilirubin 2.9 H Direct Bilirubin 2.60 H Indirect Bilirubin 0.3 Aspartate Amino 31 Transf (AST/SGOT) Alanine 33 Aminotransferase (AL T/SGPT) Alkaline Phosphatase 93 Total Protein 6.3 Albumin 2.8 L Globulin 3.50 H Albumin/Globulin 0.80 Ratio Prothrombin Time 19.0 #H Prothrombin Time 1.5 Ratio INR International 1.58 Normalized Ratio Activated 33.1 Partial Thromboplast Time Magnesium Level 2.9 H Medications Medication Current Medications IV Flush (NS 3 ml) 3 ml PER PROTOCOL IV ; Start 08/08/18 at 17:30 Ondansetron HCl (Zofran Inj) 4 mg Q6H PRN IV NAUSEA; Start 08/08/18 at 17:30 Midazolam HCl 50 ml @ 1 mls/hr TITRATE IV Last administered on 08/25/18 11:49; Admin Dose 4 MLS/HR; Start 08/13/18 at 08:30 Naphazoline HCl (Clear Eyes / Naphcon) 2 drop QID BOTH EYES Last administered on 09/07/18 08:33; Admin Dose 2 DROP; Start 08/16/18 at 18:14 Acetaminophen (Tylenol Liquid) 650 mg Q6H PRN NGT MILD PAIN(1-3)OR ELEVATED TEMP Last administered on 09/07/18 00:16; Admin Dose 650 MG; Start 08/17/18 at 00:57 Lorazepam (Ativan) 1 mg Q6H PRN IV AGITATION Last administered on 09/05/18 16:09; Admin Dose 1 MG; Start 08/28/18 at 02:30 Morphine Sulfate (morphine) 2 mg Q2H PRN IV SEVERE PAIN LEVEL 7-10 Last administered on 09/05/18 17:08; Admin Dose 2 MG; Start 08/28/18 at 09:00 Metronidazole (Flagyl) 500 mg Q8 NGT Last administered on 09/07/18 05:46; Admin Dose 500 MG; Start 08/30/18 at 14:00 Scopolamine (Transderm-Scop) 1 patch Q72H TRANSDERM Last administered on 09/06/18 11:47; Admin Dose 1 PATCH; Start 08/31/18 at 11:30 Methylprednisolone Sodium Succinate (Solu-Medrol) 40 mg DAILY IV Last administered on 09/07/18 08:33; Admin Dose 40 MG; Start 09/02/18 at 09:00 Docusate Sodium (Colace Liquid Cup) 200 mg BID NGT Last administered on 09/07/18 08:33; Admin Dose 200 MG; Start 09/04/18 at 21:00 Polyethylene Glycol (Miralax) 17 gm DAILY GTB ; Start 09/05/18 at 10:30 Quetiapine Fumarate (Seroquel) 25 mg BID GTB Last administered on 09/07/18 08:33; Admin Dose 25 MG; Start 09/05/18 at 21:00 Tigecycline 50 mg/ Sodium Chloride 100 ml @ 200 mls/hr Q12 IVPB Last administered on 09/07/18 08:35; Admin Dose 200 MLS/HR; Start 09/05/18 at 23:00 Dextrose/Sodium Chloride 1,000 ml @ 125 mls/hr Q8H IV Last administered on 09/07/18 08:57; Admin Dose 125 MLS/HR; Start 09/05/18 at 12:30 Ceftazidime 50 ml @ 100 mls/hr Q24H IVPB Last administered on 09/07/18 05:48; Admin Dose 100 MLS/HR; Start 09/07/18 at 06:00 Famotidine (Pepcid) 20 mg DAILY GTB Last administered on 09/07/18 08:33; Admin Dose 20 MG; Start 09/07/18 at 09:00 Heparin Sodium (Porcine) (Heparin (5000 Units/1ml)) 5,000 unit Q12 SC Last administered on 09/07/18 08:36; Admin Dose 5,000 UNIT; Start 09/06/18 at 21:00 IV Flush (NS 10 ml) 10 ml PRN PRN IV IV PROTOCOL; Start 09/06/18 at 17:30 Albuterol/ Ipratropium (Duoneb) 3 ml Q6H RESP THERAPY HHN Last administered on 09/07/18 08:59; Admin Dose 3 ML; Start 09/07/18 at 02:00 LELAND HOPKINS MD Sep 07, 2018 09:15
[2018-09-07] MEDS ORDERED: ALBUMIN HUMAN 25% 100 ML IV PRN (09:30)
--- NOTE | 2018-09-07 10:07 | CONS ---
Assessment/Plan Assessment/Plan Hospital Course (Demo Recall) ID PROGRESS NOTE CURRENT ABX: DAY # 30=> FORTAZ #3 + TYGACIL #3 + Flagyl 09/04 Zyvox + Colistin Diflucan -> DC'd s/p Vanco IV/Zosyn 09/07/18 0453 09/07/18 0600 24H INTERVAL SUMMARY * MARTINE partially due to Colimycin for ACBA MDRO pulmonary sepsis = HD TODAY & HD CATH ORDERED. * Tmax so far down today today 99.6 -- Tmax 102.0 x prior 48H after ABX Colisitn/Zyvox DC'd due to MARTINE. * BCx (-), Urine Cx(-), Sputum -- pending * WBC rising post ABX holiday = sepsis + partial IV steroids demargination * ABX changed to Fortaz + Tygacil ==> Of note: Tygacil can take 48H to penetrate the tissues to optimal antimicrobial levels; so hopefully patient may demonstrate improved response to current ABX today. * NEW PICC Placed 09/06/18 * FC changed 09/06/18 * 09/05/19 ABD XR revealed: Findings of small bowel obstruction with a possible mass, fluid collection, or hematoma in the left abdomen. DIAGNOSTIC IMAGING * 09/06/18 CXR: IMPRESSION: * 1. Tracheostomy and PICC line in appropriate position. * 2. Similar bilateral perihilar interstitial opacities representing pulmo nary edema or infection. * 3. Small left pleural effusion * 09/05/18 liver US: IMPRESSION:Diffuse fatty infiltration of an enlarged liver.Pancreas not well visualized. If characterization of this structure is needed repeat exam or CT/MRI is recommended. * 09/05/18 ABD XR: IMPRESSION: Findings of small bowel obstruction with a possible mass, fluid collection, or hematoma in the left abdomen. * 09/05/18 CXR: IMPRESSION: * 1. Persistent mild cardiomegaly with the pulmonary vasculature upper normal. * 2. Significant improvement with regards to the diffuse interstitial infiltrates with foci of discoid atelectasis seen within the mid and lower lung zones. Blebs are seen to project in the right mid lung zone now more conspicuous. * 3. Possible small left pleural fluid accumulation, unchanged. MICRO/OTHER * 09/05/18 Urine Cx (-) * 09/05/18 BCx(-) * 08/30/18 BCx (-) * 08/29/18 PICC Tip (-) * 08/29/18 BCx (-) * 08/29/18 RESP CX: RESPIRATORY CULTURE Final Organism 1 ACINETOBACTER BAUMANNII QUANTITY 1+ A.BAUMANNI A.BAUMANNI M.I.C. RX M.I.C. RX --------- --- --------- --- AMIKACIN R CEFEPIME >=64 R CEFTAZIDIME 16 I CIPROFLOXACIN >=4 R GENTAMICIN >=16 R LEVOFLOXACIN >=8 R MEROPENEM >32 R TOBRAMYCIN >=16 R TRIMETHOPRIM/SULFAMETHOXAZOLE >=320 R PIPERACILLIN/TAZOBACTAM >=128 R * 08/26/18 (-)C.Diff * 08/26/18 BCX (+) Cons BLOOD CULTURE Final BCULT GRAM BOTTLE 1 Gram positive cocci in clusters 1 of 2 bottles . seen on gram stain of the broth Organism 1 COAGULASE NEGATIVE STAPH * 08/16/18 Respiratory Cx (+)ACBA = MDRO * 08/09/18 BRONCH (-) * 08/08/18 (-)MRSA, (-)Influenza A/B, (-)UTI * 08/08/18 BCx (-) * PHYSICAL EXAMINATION: GENERAL: Non-communicative, super morbid obese M, orally intubated, sedated on the Vent, looks comfortable, NAD HEENT: AT, NC, anicteric NECK: Supple, (+)Trach in place CHEST: Equal chest rise bilaterally, without dyspnea on observation = Vented HEART: Pulse RRR ABDOMEN: Soft / NT EXTREMITIES: Warm, dry SKIN: No rash, no diaphoresis, multiple Tattoos ID ASSESSMENT 32 yo Super Morbid Obese M admit with: 1. Sepsis w/Fevers - MULTIFACTORIAL ETIOLOGIES => FEVERS + LEUKOCYTOSIS 09/05/18 w/ABX Holiday Trial * 09/05/18 Urine Cx (-) * 09/05/18 BCx(-) * HCAP superimposed on probable ASP PNA * S/P PICC Line Sepsis -- BCx (+) opportunistic CoNS -- PICC Line DC'd 08/29/18 2. Leukocytosis - partial IV steroids demargination 3. PNA -- ASP PNA risk factors * 08/09/18 BRONCH (-) * 08/29/18 RESP CX: RESPIRATORY CULTURE Final Organism 1 ACINETOBACTER BAUMANNII = MDRO 4. Acute hypoxic respiratory failure => s/p Trach placement 5. Obstructive Sleep Apnea/Obesity hypoventilation syndrome 6. MARTINE partially due to Colimycin for ACBA MDRO pulmonary sepsis = Colimycin DC'd 09/04/18 7. Fatty Liver w/abnormal ABX XR ? Mass vs Hematoma * 09/05/18 ABD XR: IMPRESSION: Findings of small bowel obstruction with a possible mass, fluid collection, or hematoma in the left abdomen. 8. Ileus vs SBO 9. 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 Diarrhea = ABX associated w/(-)C.Diff toxin (-)MRSA Nares ABX ALLERGIES: KNDA INVASIVES: Trach, PEG, NEW PICC (09/06/18), FC changed 09/06/18 CURRENT ABX: DAY 30=> FORTAZ#3 + TYGACIL #3 + Flagyl 09/04 Zyvox + Colistin Diflucan -> DC'd s/p Vanco IV/Zosyn ID RECOMMENDATIONS/PLAN: 1. STARTED on 09/05/18 TYGACIL + Antipseudomonal FORTAZ for ACBA + HCAP == see how he responds * NOTE: It takes 48H for Tygacil to penetrate the tissues -- today we hope to see improvement in fevers 2. PLAN TODAY -- family consented for HD Nikko placement w/HD to start - RENAL RECOVERY = AVOID NEPHROTOXIC ABX Consultation Date/Type/Reason Admit Date/Time Aug 08, 2018 at 17:18 Initial Consult Date 08/09/18 Requesting Provider: TATI CARDOZA Date/Time of Note DATE: 09/07/18 TIME: 09:46 Exam/Review of Systems Exam Vitals Vital Signs Date Temp Pulse Resp B/P (MAP) Pulse Ox O2 O2 Flow FiO2 Time Delivery Rate 09/07/18 117 24 111/59 95 Trach 09:00 (76) Collar 09/07/18 10.0 40 08:59 09/07/18 99.7 08:00 Intake and Output 09/06/18 09/06/18 09/07/18 1515:00 23:00 07:00 IntakeIntake Total 1100 ml 725 ml 1025 ml OutputOutput Total 0 ml 0 ml 3 ml BalanceBalance 1100 ml 725 ml 1022 ml Results Result Diagram: 09/07/18 0453 09/07/18 0600 Results 24hrs Laboratory Tests Test 09/06/18 15:00 09/06/18 21:32 09/07/18 04:53 09/07/18 06:00 Creatine Kinase 72 101 Creatine Kinase 0.9 0.7 Index Creatinine Kinase MB 0.64 0.66 (Mass) Troponin I 0.036 0.037 White Blood Count 24.5 #H Red Blood Count 4.42 L Hemoglobin 10.3 L Hematocrit 37.6 L Mean Corpuscular 85.1 Volume Mean Corpuscular 23.3 L Hemoglobin Mean Corpuscular 27.4 L Hemoglobin Concent Red Cell 21.3 H Distribution Width Platelet Count 254 Mean Platelet Volume 11.5 H Immature 11.200 H Granulocytes % Neutrophils % Segmented 63 Neutrophils % (Manual) Band Neutrophils % 13 H (Manual) Lymphocytes % Lymphocytes % 11 L (Manual) Monocytes % Monocytes % (Manual) 5 Eosinophils % Basophils % Metamyelocytes % 4 H (manual) Myelocytes % 2 H (Manual) Promyelocytes % 2 H (Manual) Nucleated Red Blood 1 H Cells % Immature 2.740 H Granulocytes # Neutrophils # Neutrophils # 16.2 H (Manual) Band Neutrophils # 3.1 H Lymphocytes (Manual) 2.6 Lymphocytes # Monocytes # Monocytes # (Manual) 1.2 H Eosinophils # Basophils # Metamyelocytes # 0.9 H Myelocytes # 0.4 H Promyelocytes # 0.4 H Nucleated Red Blood Cells # Platelet Estimate NORMAL Polychromasia 1+ Hypochromasia 1+ Poikilocytosis 2+ Anisocytosis 1+ Spherocytes 1+ Sodium Level 138 Potassium Level 5.4 H Chloride Level 97 Carbon Dioxide Level 25 Anion Gap 16 H Blood Urea Nitrogen 134 H Creatinine 5.25 H Est Glomerular 13 L Filtrat Rate mL/min Glucose Level 186 Calcium Level 11.0 H Total Bilirubin 2.9 H Direct Bilirubin 2.60 H Indirect Bilirubin 0.3 Aspartate Amino 31 Transf (AST/SGOT) Alanine 33 Aminotransferase (AL T/SGPT) Alkaline Phosphatase 93 Total Protein 6.3 Albumin 2.8 L Globulin 3.50 H Albumin/Globulin 0.80 Ratio Test 09/07/18 07:29 Prothrombin Time 19.0 #H Prothrombin Time 1.5 Ratio INR International 1.58 Normalized Ratio Activated 33.1 Partial Thromboplast Time Magnesium Level 2.9 H Medications Medication Current Medications IV Flush (NS 3 ml) 3 ml PER PROTOCOL IV ; Start 08/08/18 at 17:30 Ondansetron HCl (Zofran Inj) 4 mg Q6H PRN IV NAUSEA; Start 08/08/18 at 17:30 Midazolam HCl 50 ml @ 1 mls/hr TITRATE IV Last administered on 08/25/18at 11:49; Admin Dose 4 MLS/HR; Start 08/13/18 at 08:30 Naphazoline HCl (Clear Eyes / Naphcon) 2 drop QID BOTH EYES Last administered on 09/07/18at 08:33; Admin Dose 2 DROP; Start 08/16/18 at 18:14 Acetaminophen (Tylenol Liquid) 650 mg Q6H PRN NGT MILD PAIN(1-3)OR ELEVATED TEMP Last administered on 09/07/18at 00:16; Admin Dose 650 MG; Start 08/17/18 at 00:57 Lorazepam (Ativan) 1 mg Q6H PRN IV AGITATION Last administered on 09/05/18 16:09; Admin Dose 1 MG; Start 08/28/18 at 02:30 Morphine Sulfate (morphine) 2 mg Q2H PRN IV SEVERE PAIN LEVEL 7-10 Last administered on 09/05/18 17:08; Admin Dose 2 MG; Start 08/28/18 at 09:00 Metronidazole (Flagyl) 500 mg Q8 NGT Last administered on 09/07/18at 05:46; Admin Dose 500 MG; Start 08/30/18 at 14:00 Scopolamine (Transderm-Scop) 1 patch Q72H TRANSDERM Last administered on 09/06/18 11:47; Admin Dose 1 PATCH; Start 08/31/18 at 11:30 Methylprednisolone Sodium Succinate (Solu-Medrol) 40 mg DAILY IV Last administered on 09/07/18 08:33; Admin Dose 40 MG; Start 09/02/18 at 09:00 Docusate Sodium (Colace Liquid Cup) 200 mg BID NGT Last administered on 09/07/18 08:33; Admin Dose 200 MG; Start 09/04/18 at 21:00 Polyethylene Glycol (Miralax) 17 gm DAILY GTB ; Start 09/05/18 at 10:30 Quetiapine Fumarate (Seroquel) 25 mg BID GTB Last administered on 09/07/18 08:33; Admin Dose 25 MG; Start 09/05/18 at 21:00 Tigecycline 50 mg/ Sodium Chloride 100 ml @ 200 mls/hr Q12 IVPB Last administered on 09/07/18 08:35; Admin Dose 200 MLS/HR; Start 09/05/18 at 23:00 Dextrose/Sodium Chloride 1,000 ml @ 125 mls/hr Q8H IV Last administered on 09/07/18 08:57; Admin Dose 125 MLS/HR; Start 09/05/18 at 12:30 Ceftazidime 50 ml @ 100 mls/hr Q24H IVPB Last administered on 09/07/18 05:48; Admin Dose 100 MLS/HR; Start 09/07/18 at 06:00 Famotidine (Pepcid) 20 mg DAILY GTB Last administered on 09/07/18 08:33; Admin Dose 20 MG; Start 09/07/18 at 09:00 Heparin Sodium (Porcine) (Heparin (5000 Units/1ml)) 5,000 unit Q12 SC Last administered on 09/07/18 08:36; Admin Dose 5,000 UNIT; Start 09/06/18 at 21:00 IV Flush (NS 10 ml) 10 ml PRN PRN IV IV PROTOCOL; Start 09/06/18 at 17:30 Albuterol/ Ipratropium (Duoneb) 3 ml Q6H RESP THERAPY HHN Last administered on 09/07/18 08:59; Admin Dose 3 ML; Start 09/07/18 at 02:00 Albumin Human 100 ml @ 100 mls/hr DURING DIALYSIS PRN IV BLOOD PRESSURE SUPPORT; Start 09/07/18 at 09:30 GARCÍA JOHNSON NP Sep 07, 2018 09:57
--- NOTE | 2018-09-07 12:25 | CONS ---
Consult Date/Type/Reason Admit Date/Time Aug 08, 2018 at 17:18 Initial Consult Date 08/09/18 Type of Consult Pulmonary Requesting Provider: TATI CARDOZA Date/Time of Note DATE: 09/07/18 TIME: 12:24 Subjective Continues cool aerosol via tracheostomy. No urine output now pending hemodialysis catheter and emergent hemodialysis. Objective Vital Signs Date Temp Pulse Resp B/P (MAP) Pulse Ox O2 O2 Flow FiO2 Time Delivery Rate 09/07/18 117 24 111/59 95 Trach 09:00 (76) Collar 09/07/18 10.0 40 08:59 09/07/18 99.7 08:00 Intake and Output 09/06/18 09/06/18 09/07/18 1414:59 22:59 06:59 IntakeIntake Total 1225 ml 725 ml 975 ml OutputOutput Total 0 ml 0 ml 3 ml BalanceBalance 1225 ml 725 ml 972 ml Exam GENERAL: Obese young gentleman tracheostomy on cool aerosol VITAL SIGNS: per chart NECK: Supple. No JVD or lymphadenopathy. CARDIAC EXAM: S1, S2. No added sounds or murmurs. CHEST: clear bilaterally, No added sounds, rales or wheezes ABDOMEN: Soft, nontender. No guarding or rebound. EXTREMITIES: No cyanosis, clubbing, edema +2 NEUROLOGIC: Generalized weakness. No focal deficits. Vent Setting Ventilator Support Mode: CPAP, PS Fraction of Inspired Oxygen pe: 40 Positive End Expiratory Pressu: 8.0 Results/Medications Result Diagram: 09/07/18 0453 09/07/18 0600 Results 24 hrs Laboratory Tests Test 09/06/18 15:00 09/06/18 21:32 09/07/18 04:53 09/07/18 06:00 Creatine Kinase 72 101 Creatine Kinase 0.9 0.7 Index Creatinine Kinase MB 0.64 0.66 (Mass) Troponin I 0.036 0.037 White Blood Count 24.5 #H Red Blood Count 4.42 L Hemoglobin 10.3 L Hematocrit 37.6 L Mean Corpuscular 85.1 Volume Mean Corpuscular 23.3 L Hemoglobin Mean Corpuscular 27.4 L Hemoglobin Concent Red Cell 21.3 H Distribution Width Platelet Count 254 Mean Platelet Volume 11.5 H Immature 11.200 H Granulocytes % Neutrophils % Segmented 63 Neutrophils % (Manual) Band Neutrophils % 13 H (Manual) Lymphocytes % Lymphocytes % 11 L (Manual) Monocytes % Monocytes % (Manual) 5 Eosinophils % Basophils % Metamyelocytes % 4 H (manual) Myelocytes % 2 H (Manual) Promyelocytes % 2 H (Manual) Nucleated Red Blood 1 H Cells % Immature 2.740 H Granulocytes # Neutrophils # Neutrophils # 16.2 H (Manual) Band Neutrophils # 3.1 H Lymphocytes (Manual) 2.6 Lymphocytes # Monocytes # Monocytes # (Manual) 1.2 H Eosinophils # Basophils # Metamyelocytes # 0.9 H Myelocytes # 0.4 H Promyelocytes # 0.4 H Nucleated Red Blood Cells # Platelet Estimate NORMAL Polychromasia 1+ Hypochromasia 1+ Poikilocytosis 2+ Anisocytosis 1+ Spherocytes 1+ Sodium Level 138 Potassium Level 5.4 H Chloride Level 97 Carbon Dioxide Level 25 Anion Gap 16 H Blood Urea Nitrogen 134 H Creatinine 5.25 H Est Glomerular 13 L Filtrat Rate mL/min Glucose Level 186 Calcium Level 11.0 H Total Bilirubin 2.9 H Direct Bilirubin 2.60 H Indirect Bilirubin 0.3 Aspartate Amino 31 Transf (AST/SGOT) Alanine 33 Aminotransferase (AL T/SGPT) Alkaline Phosphatase 93 Total Protein 6.3 Albumin 2.8 L Globulin 3.50 H Albumin/Globulin 0.80 Ratio Test 09/07/18 07:29 Prothrombin Time 19.0 #H Prothrombin Time 1.5 Ratio INR International 1.58 Normalized Ratio Activated 33.1 Partial Thromboplast Time Magnesium Level 2.9 H Medications Current Medications IV Flush (NS 3 ml) 3 ml PER PROTOCOL IV ; Start 08/08/18 at 17:30 Ondansetron HCl (Zofran Inj) 4 mg Q6H PRN IV NAUSEA; Start 08/08/18 at 17:30 Midazolam HCl 50 ml @ 1 mls/hr TITRATE IV Last administered on 08/25/18at 11:49; Admin Dose 4 MLS/HR; Start 08/13/18 at 08:30 Naphazoline HCl (Clear Eyes / Naphcon) 2 drop QID BOTH EYES Last administered on 09/07/18at 08:33; Admin Dose 2 DROP; Start 08/16/18 at 18:14 Acetaminophen (Tylenol Liquid) 650 mg Q6H PRN NGT MILD PAIN(1-3)OR ELEVATED TEMP Last administered on 09/07/18 00:16; Admin Dose 650 MG; Start 08/17/18 at 00:57 Lorazepam (Ativan) 1 mg Q6H PRN IV AGITATION Last administered on 09/05/18 16:09; Admin Dose 1 MG; Start 08/28/18 at 02:30 Morphine Sulfate (morphine) 2 mg Q2H PRN IV SEVERE PAIN LEVEL 7-10 Last administered on 09/05/18 17:08; Admin Dose 2 MG; Start 08/28/18 at 09:00 Metronidazole (Flagyl) 500 mg Q8 NGT Last administered on 09/07/18 05:46; Admin Dose 500 MG; Start 08/30/18 at 14:00 Scopolamine (Transderm-Scop) 1 patch Q72H TRANSDERM Last administered on 09/06/18 11:47; Admin Dose 1 PATCH; Start 08/31/18 at 11:30 Docusate Sodium (Colace Liquid Cup) 200 mg BID NGT Last administered on 09/07/18 08:33; Admin Dose 200 MG; Start 09/04/18 at 21:00 Polyethylene Glycol (Miralax) 17 gm DAILY GTB ; Start 09/05/18 at 10:30 Quetiapine Fumarate (Seroquel) 25 mg BID GTB Last administered on 09/07/18 08:33; Admin Dose 25 MG; Start 09/05/18 at 21:00 Tigecycline 50 mg/ Sodium Chloride 100 ml @ 200 mls/hr Q12 IVPB Last administered on 09/07/18 08:35; Admin Dose 200 MLS/HR; Start 09/05/18 at 23:00 Dextrose/Sodium Chloride 1,000 ml @ 125 mls/hr Q8H IV Last administered on 09/07/18 08:57; Admin Dose 125 MLS/HR; Start 09/05/18 at 12:30 Ceftazidime 50 ml @ 100 mls/hr Q24H IVPB Last administered on 09/07/18 05:48; Admin Dose 100 MLS/HR; Start 09/07/18 at 06:00 Famotidine (Pepcid) 20 mg DAILY GTB Last administered on 09/07/18 08:33; Admin Dose 20 MG; Start 09/07/18 at 09:00 Heparin Sodium (Porcine) (Heparin (5000 Units/1ml)) 5,000 unit Q12 SC Last administered on 09/07/18at 08:36; Admin Dose 5,000 UNIT; Start 09/06/18 at 21:00 IV Flush (NS 10 ml) 10 ml PRN PRN IV IV PROTOCOL; Start 09/06/18 at 17:30 Albuterol/ Ipratropium (Duoneb) 3 ml Q6H RESP THERAPY HHN Last administered on 09/07/18at 08:59; Admin Dose 3 ML; Start 09/07/18 at 02:00 Albumin Human 100 ml @ 100 mls/hr DURING DIALYSIS PRN IV BLOOD PRESSURE SUPPORT; Start 09/07/18 at 09:30 Assessment/Plan Hospital Course (Demo Recall) IMP: 1. Acute on chronic hypoxemic and hypercapnic respiratory failure, failed multiple weaning trials status post tracheostomy. Significant secretions, 2. Component of diastolic dysfunction 3. History of obesity hypoventilation syndrome and probable obstructive sleep apnea 4. Leukocytosis With ongoing fevers and persistent diarrhea. 5. Acute renal failure. 6. Small bowel obstruction with severe sepsis RECS: 1. Continue trach collar as tolerated tracheostomy site care, 2. Continue ID recommendations 3. Tube feeding as tolerated, currently on hold GI evaluation 4. Acute renal failure now likely requiring hemodialysis 5. Placement of hemodialysis catheter and emergent hemodialysis 6. Surgery recommendations with ongoing small bowel obstruction. Prognosis guarded 40 min cc time JULIETH PUENTE MD, [facility] Sep 07, 2018 12:25
[2018-09-07] MEDS ORDERED: NORepinephrine 8MG/250 ML (PMX 250 ML IV SCH (12:30)
[2018-09-07] MEDS ORDERED: SODIUM BICARBONATE (IV ADD) 150 MEQ in DEXTROSE 5% 1,000 ML IV SCH (13:30)
[2018-09-07] MEDS ORDERED: HEPARIN 1000 UNITS/ML 10 ML INJ ONE (14:20)
--- NOTE | 2018-09-07 14:34 | CONS ---
Assessment/Plan Assessment/Plan Hospital Course 32 yo morbidly obese male with multiple comorbidities who is admitted to the [facility] ICU for management of acute respiratory failure...now s/p trach He is noted to be protractedly encephalopathic, for which neurology is consulted. PNA+ MARTINE worsening On daily iv steroids, which likely precipitate/exacerbate psychosis Receiving multiple psychotropics.. Most clinically consistent with an acute and multifactorial toxic-metabolic encephalopathy. A focal [employer] process is less likely. Patient's body habitus is reportedly not amendable to neuroimaging P: Spur as necessary Wean steroids as soon as able Agree w/ low dose seroquel prn in the short-term, to be titrated to effect PT/OT/ST when able to participate Other medical management per primary Will follow clinically Consultation Date/Type/Reason Admit Date/Time Aug 08, 2018 at 17:18 Type of Consult Neurology Reason for Consultation encephalopathy Requesting Provider: TATI CARDOZA Date/Time of Note DATE: 09/07/18 TIME: 14:34 24 HR Interval Summary Free Text/Dictation Continues critical care. Renal function reportedly much worse today. Awaiting HD cath placement and HD today. Subjective hx not possible: pt non-verbal, pt critical Exam Vital Signs Vitals Vital Signs Date Temp Pulse Resp B/P (MAP) Pulse Ox O2 O2 Flow FiO2 Time Delivery Rate 09/07/18 111 22 116/67 91 Trach 13:00 (83) Collar 09/07/18 98.8 12:00 09/07/18 10.0 40 08:59 Intake and Output 09/06/18 09/06/18 09/07/18 1414:59 22:59 06:59 IntakeIntake Total 1225 ml 725 ml 975 ml OutputOutput Total 0 ml 0 ml 3 ml BalanceBalance 1225 ml 725 ml 972 ml Exam PE: Gen Appearance: No Apparent Distress HEENT: Trached Cardiovascular: Tachycardic Abdomen: Soft, Obese Extremities: Dry NE: The patient was obtunded and nonverbal. He did not follow commands. He grimaced to noxious stimulation. Cranial nerve examination was limited by mental status. Pupils were equal and reactive to light. There was no afferent pupillary defect. Funduscopic examination was limited. Face was grossly symmetric, w/ present corneal and cough reflexes. Tone was normal. Muscle bulk was normal. I did not see fasciculations. The patient withdrew mildly to noxious stimulation in the LUE. Did not withdraw to noxious stimulation in the other extremities. Coordination and gait testing was limited by mental status. Arm and leg reflexes were within normal limits and symmetric. Grimm's sign was absent. Plantar responses were flexor. ARSENIO MAXWELL NP Sep 07, 2018 14:34
[2018-09-07] MEDS ORDERED: HEPARIN 1000 UNITS/ML 10 ML INJ CATHETER ONE ×2 (15:00→20:30)
--- NOTE | 2018-09-07 15:06 | OPR ---
DATE OF OPERATION: 09/07/2018 PREOPERATIVE DIAGNOSIS: Acute renal failure. POSTOPERATIVE DIAGNOSIS: Acute renal failure. OPERATION PERFORMED: Nikko right femoral dialysis catheter insertion with ultrasound guidance. SURGEON: Edouard Cantu MD DESCRIPTION OF PROCEDURE: The patient was prepped and draped in sterile fashion after operative cons ent was obtained. The patient already had a trach collar. Consent was obtained from the mother. Lo arslan anesthetic was infiltrated into the right groin over the right femoral pulse and using direct ult rasound guidance, the right common femoral vein was accessed in modified Seldinger technique. After wire access was obtained, the skin was nicked with a #11 blade. A dilator was passed and the Trialys is catheter was placed over the wire. The wire was removed. All ports were aspirated and flushed. The ports of the dialysis catheter as well as the Trialysis lumen were flushed with high dose heparin 1000 units per 1 mL and the catheter was tacked to the skin. Biopatch was placed around the skin ex it site and sterile dressing was applied. Dictated By: EDOUARD TOTH/TUCKER Conf#: [id number] DID#: [id number] CC: RC GO; ELIANE PEARSON MD; LELAND HOPKINS MD;*End*
--- NOTE | 2018-09-07 16:01 | CONS ---
Assessment/Plan Assessment/Plan Hospital Course (Demo Recall) Sinus tachycardia: Corresponds with febrile episodes. LVEF is hyperdynamic. Now better with resolution of fevers Acute renal failure: will be started on HD Acute on chronic respiratory failure: s/p tracheostomy this admission Acinetobacter PNA SBO Morbid obesity -antibiotics -IVF -supportive care for fevers Consultation Date/Type/Reason Admit Date/Time Aug 08, 2018 at 17:18 Initial Consult Date 09/06/18 Type of Consult Cardiology Requesting Provider: TATI CARDOZA Date/Time of Note DATE: 09/07/18 TIME: 15:57 24 HR Interval Summary Free Text/Dictation Remains anuric. HD catheter placed and plan for HD today. Fever curve improved and HR along with it. Mother at bedside Exam/Review of Systems Exam Vitals Vital Signs Date Temp Pulse Resp B/P (MAP) Pulse Ox O2 O2 Flow FiO2 Time Delivery Rate 09/07/18 121 25 131/77 89 15:30 (95) 09/07/18 Trach 15:00 Collar 09/07/18 98.8 12:00 09/07/18 10.0 40 08:59 Intake and Output 09/06/18 09/06/18 09/07/18 1515:00 23:00 07:00 IntakeIntake Total 1100 ml 725 ml 1025 ml OutputOutput Total 0 ml 0 ml 3 ml BalanceBalance 1100 ml 725 ml 1022 ml Constitutional: No alert Head: normocephalic ENMT: other (s/p trach) Neck: No jvd (unable to assess) Respiratory: diminished breath sounds; No clear to auscultation Cardiovascular: edema (trace); No regular rate and rhythm (tachycardic, regular ) Gastrointestinal: soft; No distended Neurological: No nl mental status, No nl speech Results Result Diagram: 09/07/18 0453 09/07/18 0600 Results 24hrs Laboratory Tests Test 09/06/18 21:32 09/07/18 04:53 09/07/18 06:00 09/07/18 07:29 Creatine Kinase 101 Creatine Kinase 0.7 Index Creatinine Kinase 0.66 MB (Mass) Troponin I 0.037 White Blood Count 24.5 #H Red Blood Count 4.42 L Hemoglobin 10.3 L Hematocrit 37.6 L Mean Corpuscular 85.1 Volume Mean Corpuscular 23.3 L Hemoglobin Mean Corpuscular 27.4 L Hemoglobin Concen t Red Cell 21.3 H Distribution Width Platelet Count 254 Mean Platelet 11.5 H Volume Immature 11.200 H Granulocytes % Neutrophils % Segmented 63 Neutrophils % (Manual) Band Neutrophils 13 H % (Manual) Lymphocytes % Lymphocytes % 11 L (Manual) Monocytes % Monocytes % 5 (Manual) Eosinophils % Basophils % Metamyelocytes % 4 H (manual) Myelocytes % 2 H (Manual) Promyelocytes % 2 H (Manual) Nucleated Red 1 H Blood Cells % Immature 2.740 H Granulocytes # Neutrophils # Neutrophils # 16.2 H (Manual) Band Neutrophils 3.1 H # Lymphocytes 2.6 (Manual) Lymphocytes # Monocytes # Monocytes # 1.2 H (Manual) Eosinophils # Basophils # Metamyelocytes # 0.9 H Myelocytes # 0.4 H Promyelocytes # 0.4 H Nucleated Red Blood Cells # Platelet Estimate NORMAL Polychromasia 1+ Hypochromasia 1+ Poikilocytosis 2+ Anisocytosis 1+ Spherocytes 1+ Sodium Level 138 Potassium Level 5.4 H Chloride Level 97 Carbon Dioxide 25 Level Anion Gap 16 H Blood Urea 134 H Nitrogen Creatinine 5.25 H Est Glomerular 13 L Filtrat Rate mL/min Glucose Level 186 Calcium Level 11.0 H Total Bilirubin 2.9 H Direct Bilirubin 2.60 H Indirect 0.3 Bilirubin Aspartate Amino 31 Transf (AST/SGOT) Alanine 33 Aminotransferase (ALT/SGPT) Alkaline 93 Phosphatase Total Protein 6.3 Albumin 2.8 L Globulin 3.50 H Albumin/Globulin 0.80 Ratio Prothrombin Time 19.0 #H Prothrombin Time 1.5 Ratio INR International 1.58 Normalized Ratio Activated 33.1 Partial Thrombopl ast Time Magnesium Level 2.9 H Test 09/07/18 13:30 Blood Gas Blood arterial Specimen Source Arterial Blood 09/07/2018 1:20:3 Date Drawn 2 PM Arterial Blood pH 7.249 *L (Temp corrected) Arterial Blood 57.8 H pCO2 (Temp correct) Arterial Blood 43.4 *L pO2 (Temp corrected) Arterial Blood 24.7 HCO3 Arterial Blood -3.1 L Base Excess Arterial Blood 66.8 L Oxygen Saturation James Test ACCEPTAB Arterial Blood Right Radial Gas Puncture Site Arterial 0.1 Blood Carboxyhemo globin Arterial Blood 0.5 Methemoglobin Blood Gas A-a O2 175.3 H Differential Oxyhemoglobin 66.4 L Percent Blood Gas 37.0 Temperature Blood Gas Actual 28 Respiration Rate Blood Gas TRACH COLLAR Modality FiO2 40.0 Blood Gas ROSMERY CANCHOLA Critical Value Read Back Blood Gas ANJEL RT Notified Whom Blood Gas 09/07/2018 1:37:0 Notified Time 4 PM Medications Medication Current Medications IV Flush (NS 3 ml) 3 ml PER PROTOCOL IV ; Start 08/08/18 at 17:30 Ondansetron HCl (Zofran Inj) 4 mg Q6H PRN IV NAUSEA; Start 08/08/18 at 17:30 Midazolam HCl 50 ml @ 1 mls/hr TITRATE IV Last administered on 08/25/18 11:49; Admin Dose 4 MLS/HR; Start 08/13/18 at 08:30 Naphazoline HCl (Clear Eyes / Naphcon) 2 drop QID BOTH EYES Last administered on 09/07/18 14:53; Admin Dose 2 DROP; Start 08/16/18 at 18:14 Acetaminophen (Tylenol Liquid) 650 mg Q6H PRN NGT MILD PAIN(1-3)OR ELEVATED TEMP Last administered on 09/07/18 00:16; Admin Dose 650 MG; Start 08/17/18 at 00:57 Lorazepam (Ativan) 1 mg Q6H PRN IV AGITATION Last administered on 09/05/18 16:09; Admin Dose 1 MG; Start 08/28/18 at 02:30 Morphine Sulfate (morphine) 2 mg Q2H PRN IV SEVERE PAIN LEVEL 7-10 Last administered on 09/05/18 17:08; Admin Dose 2 MG; Start 08/28/18 at 09:00 Metronidazole (Flagyl) 500 mg Q8 NGT Last administered on 09/07/18 15:14; Admin Dose 500 MG; Start 08/30/18 at 14:00 Scopolamine (Transderm-Scop) 1 patch Q72H TRANSDERM Last administered on 11:47; Admin Dose 1 PATCH; Start 08/31/18 at 11:30 Docusate Sodium (Colace Liquid Cup) 200 mg BID NGT Last administered on 09/07/18 08:33; Admin Dose 200 MG; Start 09/04/18 at 21:00 Polyethylene Glycol (Miralax) 17 gm DAILY GTB ; Start 09/05/18 at 10:30 Quetiapine Fumarate (Seroquel) 25 mg BID GTB Last administered on 09/07/18at 08:33; Admin Dose 25 MG; Start 09/05/18 at 21:00 Tigecycline 50 mg/ Sodium Chloride 100 ml @ 200 mls/hr Q12 IVPB Last administered on 09/07/18at 08:35; Admin Dose 200 MLS/HR; Start 09/05/18 at 23:00 Ceftazidime 50 ml @ 100 mls/hr Q24H IVPB Last administered on 09/07/18at 05:48; Admin Dose 100 MLS/HR; Start 09/07/18 at 06:00 Famotidine (Pepcid) 20 mg DAILY GTB Last administered on 09/07/18at 08:33; Admin Dose 20 MG; Start 09/07/18 at 09:00 Heparin Sodium (Porcine) (Heparin (5000 Units/1ml)) 5,000 unit Q12 SC Last administered on 09/07/18at 08:36; Admin Dose 5,000 UNIT; Start 09/06/18 at 21:00 IV Flush (NS 10 ml) 10 ml PRN PRN IV IV PROTOCOL; Start 09/06/18 at 17:30 Albuterol/ Ipratropium (Duoneb) 3 ml Q6H RESP THERAPY HHN Last administered on 09/07/18at 08:59; Admin Dose 3 ML; Start 09/07/18 at 02:00 Albumin Human 100 ml @ 100 mls/hr DURING DIALYSIS PRN IV BLOOD PRESSURE SUPPORT; Start 09/07/18 at 09:30 Norepinephrine 250 ml @ 1.875 mls/ hr TITRATE IV ; Start 09/07/18 at 12:30 KRISTA ROCHA Sep 07, 2018 16:01
--- NOTE | 2018-09-07 21:53 | PN ---
Date/Time of Note Date/Time of Note DATE: 09/07/18 TIME: 21:52 Assessment/Plan Lines/Catheters IV Catheter Type (from Nrsg): PICC Line Santiago in Place (from Nrsg): Yes Assessment/Plan Assessment/Plan Respiratory failure Status post trach Patient improving Will remove sutures Subjective 24 Hr Interval Summary Constitutional: improved Pain Control: mild Exam/Review of Systems Vital Signs Vitals Vital Signs Date Temp Pulse Resp B/P (MAP) Pulse Ox O2 O2 Flow FiO2 Time Delivery Rate 09/07/18 106 22 118/76 99 21:30 (90) 09/07/18 98.5 Mechanical 21:00 Ventilator 09/07/18 100 18:00 09/07/18 10.0 12:00 Intake and Output 09/06/18 09/06/18 09/07/18 1414:59 22:59 06:59 IntakeIntake Total 1225 ml 725 ml 975 ml OutputOutput Total 0 ml 0 ml 3 ml BalanceBalance 1225 ml 725 ml 972 ml Exam Eyes: nl conjunctiva, EOMI, nl lids, nl sclera ENMT: nl external ears & nose, nl lips & teeth, nl nasal mucosa & septum, mucosa pink and moist Neck: supple, non-tender Respiratory: clear to auscultation, normal air movement Cardiovascular: regular rate and rhythm, nl pulses Gastrointestinal: soft, nl liver, spleen, non-tender Musculoskeletal: nl extremities to inspection, nl gait and stance Results Result Diagram: 09/07/18 0453 09/07/18 0600 MALETIMMY JAVIER MD Sep 07, 2018 21:53
--- NOTE | 2018-09-07 22:15 | PN ---
Date/Time of Note Date/Time of Note DATE: 09/07/18 TIME: 22:11 Assessment/Plan Lines/Catheters IV Catheter Type (from Nrs): PICC Line Santiago in Place (from Nrs): Yes Assessment/Plan Assessment/Plan Ileus vs. SBO Had BMs today Abd series shows no improvement Continue current care Not a surgical candidate and no indication for surgical intervention at this point GI to re-evalaute PEG LUQ U/S Subjective 24 Hr Interval Summary Subjective hx not possible: pt non-verbal, pt critical status Additional Comments multiple BMs today Exam/Review of Systems Vital Signs Vitals Vital Signs Date Temp Pulse Resp B/P (MAP) Pulse Ox O2 O2 Flow FiO2 Time Delivery Rate 09/07/18 106 22 118/76 99 21:30 (90) 09/07/18 98.5 Mechanical 21:00 Ventilator 09/07/18 100 18:00 09/07/18 10.0 12:00 Intake and Output 09/06/18 09/06/18 09/07/18 1515:00 23:00 07:00 IntakeIntake Total 1100 ml 725 ml 1025 ml OutputOutput Total 0 ml 0 ml 3 ml BalanceBalance 1100 ml 725 ml 1022 ml Exam Constitutional: other (intubated and sedated) Respiratory: diminished breath sounds Cardiovascular: regular rate and rhythm Gastrointestinal: soft Results Result Diagram: 09/07/18 0453 09/07/18 0600 Procedures Procedures DIAGNOSTIC IMAGING REPORT Patient: HOWARD MIRANDA : 1985 Age: 32 Sex: M MR #: [id number] DOS: 09/07/18 0000 Ordering MD: CHRIS BARCENAS MD Location: ICU Room/Bed: [facility] PROCEDURE: XR Abdomen CLINICAL INDICATION: Small bowel obstruction TECHNIQUE: An AP supine radiograph of the abdomen was submitted. COMPARISON: 09/05/2018 FINDINGS: A gastrostomy tube is again seen to be in place. A Santiago catheter is again evident. Somewhat organized air distended small bowel is again seen within the right abdomen with no significant colonic air evident suspicious for [id number] small bowel obstruction. There is again soft tissue density within the left lateral abdomen for which a fluid collection, hematoma, or mass cannot be excluded. No pathological calcification is identified. Degenerative enthesopathy is seen within the inferior thoracic region. Discoid atelectasis is seen at the lung bases. IMPRESSION: 1. The gastric pain in the Santiago catheter again evident. 2. The bowel gas pattern again suggests a mid to distal small bowel obstructi on. 3. There is again a paucity of air and increased soft tissue density within the left abdomen raising the possibility of a fluid collection, hematoma, or even a mass, unchanged. 4. Degenerative enthesopathy of the inferior thoracic spine. 5. Discoid atelectasis is again seen at the lung bases. Physician Vinnie Date Time Electronically viewed and signed by Physician Vinnie on 09/07/2018 15:50 RH/ CC: CHRIS BARCENAS MD [id number] CHRIS BARCENAS MD Sep 07, 2018 22:15
[2018-09-08] VITALS (52 sets, daily range): BP systolic 98–140; BP diastolic 69–86; PULSE 100–118; RESP 17–31
[2018-09-08] MEDS: ALBUTEROL/IPRATROPIUM (NEB) 3 ML AMP HHN SCH (01:34)
[2018-09-08] MEDS: CEFTAZIDIME 1GM/50 ML (PMX) 50 ML IVPB SCH (06:01)
[2018-09-08] MEDS: metroNIDAZOLE 500 MG TAB NGT SCH ×3 (06:01→21:26)
[2018-09-08] MEDS: DOCUSATE SODIUM 10 MG/ML (10ML CUP) NGT SCH ×2 (08:39→21:00)
[2018-09-08] MEDS: TIGECYCLINE 50 MG in SOD CHLORIDE 0.9% 100 ML IVPB SCH ×2 (08:40→21:23)
[2018-09-08] MEDS: QUETIAPINE 25 MG TAB GTB SCH ×2 (08:40→21:00)
[2018-09-08] MEDS: POLYETHYLENE GLYCOL 17 GM PACKET GTB SCH (08:40)
[2018-09-08] MEDS: FAMOTIDINE 20 MG TAB GTB SCH (08:40)
[2018-09-08] MEDS: NAPHAZOLINE 0.012% 15 ML OPH BOTH EYES SCH ×4 (08:41→21:24)
[2018-09-08] MEDS: HEPARIN 5,000 UNIT/1 ML VIAL SC SCH ×2 (08:49→21:28)
--- NOTE | 2018-09-08 09:01 | PN ---
Date/Time of Note Date/Time of Note DATE: 09/08/18 TIME: 08:53 Assessment/Plan VTE Prophylaxis Risk score (from Nsg)>0 risk: 10 Pharmacological prophylaxis: heparin Lines/Catheters IV Catheter Type (from Nrsg): PICC Line Central line still needed: Yes Urinary Cath still in place: Yes Reason Cath still needed: other (indicate) Assessment/Plan Hospital Course Subjective : - started on HD yesterday , also had to be put back on the ventilator Objective : Gen: Morbidly obese man lying in bed, opens eyes, attempts to speak Neck: Obese, trach, HEENT: [place], scleral icterus Card: distant heart sounds Pulm: distant lung sounds. coarse Abd: Morbidly obese, soft, nontender, G-tube in place Ext: Bilateral LE chronic venous stasis changes, no edema, skin discoloration Neuro: No focal deficits, generalized lethargy, can barely raise his legs from the bed, confused , pulling at lines assessment and plan: 32yo Morbidly obese male who had presented with shortness of breath currently managed as follows: 1. Hypoxic/hypercapnic respiratory failure: -Secondary to ANDREW, exacerbated by pneumonia, underlying COPD with blebs now seen on CXR -Intubated , status post trach 08/24 -Currently off the ventilator, remains in ICU due to requiring frequent suctioning and copious secretions -steroids added 09/05/18 -back on vent 2. Encephalopathy, toxic metabolic, r/o hypoxic ischemic -patient remains confused intermittently, may have suffered a brain insult, unable to get MRI or CT 08/19 weight -appreciate neurology consult, will follow recs -attempted to cut back on dosing for Seroquel, but patient is still quite confused, Switched to BID dosing 3. Sepsis with Bilateral pneumonia -Cultures grew MDR Acinetobacter, now on inhaled colistin -still spiking fevers -CXR shows improvement in infiltrates, repeat blood cultures negative so far, urine and resp cultures pending -LE dopplers negative for DVT 4. Acute renal insufficiency now started on hemodialysis -schaefer was changed to r/o obstruction 09/06/18 -1st session 09/07/18, -HD per renal 5. SBO and possible mass -Continue to hold tube feeds -Continue suction to PEG , 2.7L pulled out 09/05/18 -appreciate surgery review, spoke with surgeon, f/u LUQ USS and GI notified to re-evaluate PEG 6. Functional dysphagia status post PEG -Secondary to trach 7.. Chronic hypochromic anemia -stable, monitor 8. Severe Obesity -high risk for skin breakdown, -controlled calories while on tube feeds -has lost about 40 pounds so far since admission per nursing 7. Debility and lethargy -PT limited by patient's mental status 8. Hyperbilirubinemia - predominantly direct, alkaline phosphatase is normal -liver USS showed diffuse fatty liver -am labs with hepatitis screen pending 9. Steroid induced leucocytosis -monitor 10. Tachycardia -related to fevers per cardio, appreciate input Plan -remains in ICU for now d/t tenuous status and requiring repeated intervention -back on vent -NPO 08/19 sbo, spoke with surgery and GI, GI to review PEG, LUQ USS to assess -Continue HD per renal Prophylaxis : on Heparin tid d/t weight Poor prognosis CRITICAL CARE TIME: >35 mins Result Diagram: 09/08/18 0430 09/08/18 0430 Results 24hrs Laboratory Tests Test 09/07/18 13:30 09/07/18 19:00 09/08/18 04:30 Blood Gas Specimen Blood arterial Blood arterial Source Arterial Blood Date 09/07/2018 1:20:32 PM 09/07/2018 9:38:36 PM Drawn Arterial Blood pH 7.249 *L 7.263 *L (Temp corrected) Arterial Blood pCO2 57.8 H 59.8 H (Temp correct) Arterial Blood pO2 43.4 *L 144.6 H (Temp corrected) Arterial Blood HCO3 24.7 26.4 H Arterial Blood Base -3.1 L -1.5 Excess Arterial Blood 66.8 L 98.6 H Oxygen Saturation James Test ACCEPTAB N/A Arterial Blood Gas Right Radial Right Radial Puncture Site Arterial 0.1 0 Blood Carboxyhemoglob in Arterial Blood 0.5 0.6 Methemoglobin Blood Gas A-a O2 175.3 H Differential Oxyhemoglobin Percent 66.4 L 98.0 Blood Gas Temperature 37.0 37.0 Blood Gas Actual 28 23 Respiration Rate Blood Gas Modality TRACH COLLAR VENT - AC FiO2 40.0 30.0 Blood Gas Critical ROSMERY Valadez RN Value Read Back Blood Gas Notified ANJEL ENRIQUE S.H. Whom Blood Gas Notified 09/07/2018 1:37:04 PM 09/07/2018 9:55:42 PM Time Blood Gas Respiration 20.0 Rate Blood Gas Tidal 550.0 Volume Blood Gas Inspiratory 29.0 Pressure White Blood Count 27.1 H Red Blood Count 4.13 L Hemoglobin 9.6 L Hematocrit 34.6 L Mean Corpuscular 83.8 Volume Mean Corpuscular 23.2 L Hemoglobin Mean Corpuscular 27.7 L Hemoglobin Concent Red Cell Distribution 20.8 H Width Platelet Count 272 Mean Platelet Volume 10.3 Immature Granulocytes 8.000 H % Neutrophils % Lymphocytes % Monocytes % Eosinophils % Basophils % Nucleated Red Blood 0.4 H Cells % Immature Granulocytes 2.170 H # Neutrophils # Lymphocytes # Monocytes # Eosinophils # Basophils # Nucleated Red Blood Cells # Sodium Level 135 Potassium Level 5.7 H Chloride Level 95 L Carbon Dioxide Level 25 Anion Gap 15 H Blood Urea Nitrogen 115 H Creatinine 4.74 H Est Glomerular 14 L Filtrat Rate mL/min Glucose Level 150 Calcium Level 10.7 H Total Bilirubin 2.2 H Direct Bilirubin 1.90 #H Indirect Bilirubin 0.3 Aspartate Amino 29 Transf (AST/SGOT) Alanine 37 Aminotransferase (ALT /SGPT) Alkaline Phosphatase 107 Total Protein 6.4 Albumin 3.0 L Globulin 3.40 H Albumin/Globulin 0.88 Ratio Exam/Review of Systems Exam Vitals Vital Signs Date Temp Pulse Resp B/P (MAP) Pulse Ox O2 O2 Flow FiO2 Time Delivery Rate 09/08/18 97.7 105 25 129/79 96 Mechanical 06:00 (96) Ventilator 09/08/18 70 05:28 09/07/18 10.0 12:00 Intake and Output 09/07/18 09/07/18 09/08/18 1515:00 23:00 07:00 IntakeIntake Total 1070 ml 250 ml 0 ml OutputOutput Total 0 ml 2302 ml 0 ml BalanceBalance 1070 ml -2052 ml 0 ml Results Results 24hrs Laboratory Tests Test 09/07/18 13:30 09/07/18 19:00 09/08/18 04:30 Blood Gas Specimen Blood arterial Blood arterial Source Arterial Blood Date 09/07/2018 1:20:32 PM 09/07/2018 9:38:36 PM Drawn Arterial Blood pH 7.249 *L 7.263 *L (Temp corrected) Arterial Blood pCO2 57.8 H 59.8 H (Temp correct) Arterial Blood pO2 43.4 *L 144.6 H (Temp corrected) Arterial Blood HCO3 24.7 26.4 H Arterial Blood Base -3.1 L -1.5 Excess Arterial Blood 66.8 L 98.6 H Oxygen Saturation James Test ACCEPTAB N/A Arterial Blood Gas Right Radial Right Radial Puncture Site Arterial 0.1 0 Blood Carboxyhemoglob in Arterial Blood 0.5 0.6 Methemoglobin Blood Gas A-a O2 175.3 H Differential Oxyhemoglobin Percent 66.4 L 98.0 Blood Gas Temperature 37.0 37.0 Blood Gas Actual 28 23 Respiration Rate Blood Gas Modality TRACH COLLAR VENT - AC FiO2 40.0 30.0 Blood Gas Critical RN Ifeoma Valadez RN Value Read Back Blood Gas Notified ANJEL ENRIQUE S.HLatrell Whom Blood Gas Notified 09/07/2018 1:37:04 PM 09/07/2018 9:55:42 PM Time Blood Gas Respiration 20.0 Rate Blood Gas Tidal 550.0 Volume Blood Gas Inspiratory 29.0 Pressure White Blood Count 27.1 H Red Blood Count 4.13 L Hemoglobin 9.6 L Hematocrit 34.6 L Mean Corpuscular 83.8 Volume Mean Corpuscular 23.2 L Hemoglobin Mean Corpuscular 27.7 L Hemoglobin Concent Red Cell Distribution 20.8 H Width Platelet Count 272 Mean Platelet Volume 10.3 Immature Granulocytes 8.000 H % Neutrophils % Lymphocytes % Monocytes % Eosinophils % Basophils % Nucleated Red Blood 0.4 H Cells % Immature Granulocytes 2.170 H # Neutrophils # Lymphocytes # Monocytes # Eosinophils # Basophils # Nucleated Red Blood Cells # Sodium Level 135 Potassium Level 5.7 H Chloride Level 95 L Carbon Dioxide Level 25 Anion Gap 15 H Blood Urea Nitrogen 115 H Creatinine 4.74 H Est Glomerular 14 L Filtrat Rate mL/min Glucose Level 150 Calcium Level 10.7 H Total Bilirubin 2.2 H Direct Bilirubin 1.90 #H Indirect Bilirubin 0.3 Aspartate Amino 29 Transf (AST/SGOT) Alanine 37 Aminotransferase (ALT /SGPT) Alkaline Phosphatase 107 Total Protein 6.4 Albumin 3.0 L Globulin 3.40 H Albumin/Globulin 0.88 Ratio Medications Medication Current Medications IV Flush (NS 3 ml) 3 ml PER PROTOCOL IV ; Start 08/08/18 at 17:30 Ondansetron HCl (Zofran Inj) 4 mg Q6H PRN IV NAUSEA; Start 08/08/18 at 17:30 Midazolam HCl 50 ml @ 1 mls/hr TITRATE IV Last administered on 08/25/18 11:49; Admin Dose 4 MLS/HR; Start 08/13/18 at 08:30 Naphazoline HCl (Clear Eyes / Naphcon) 2 drop QID BOTH EYES Last administered on 09/08/18 08:41; Admin Dose 2 DROP; Start 08/16/18 at 18:14 Acetaminophen (Tylenol Liquid) 650 mg Q6H PRN NGT MILD PAIN(1-3)OR ELEVATED TEMP Last administered on 09/07/18 00:16; Admin Dose 650 MG; Start 08/17/18 at 00:57 Lorazepam (Ativan) 1 mg Q6H PRN IV AGITATION Last administered on 09/05/18 16:09; Admin Dose 1 MG; Start 08/28/18 at 02:30 Morphine Sulfate (morphine) 2 mg Q2H PRN IV SEVERE PAIN LEVEL 7-10 Last admin istered on 09/05/18 17:08; Admin Dose 2 MG; Start 08/28/18 at 09:00 Metronidazole (Flagyl) 500 mg Q8 NGT Last administered on 09/08/18 06:01; Admin Dose 500 MG; Start 08/30/18 at 14:00 Scopolamine (Transderm-Scop) 1 patch Q72H TRANSDERM Last administered on 09/06/18 11:47; Admin Dose 1 PATCH; Start 08/31/18 at 11:30 Docusate Sodium (Colace Liquid Cup) 200 mg BID NGT Last administered on 09/08 08:39; Admin Dose 200 MG; Start 09/04/18 at 21:00 Polyethylene Glycol (Miralax) 17 gm DAILY GTB Last administered on 09/08/18 08:40; Admin Dose 17 GM; Start 09/05/18 at 10:30 Quetiapine Fumarate (Seroquel) 25 mg BID GTB Last administered on 09/08/18 08:40; Admin Dose 25 MG; Start 09/05/18 at 21:00 Tigecycline 50 mg/ Sodium Chloride 100 ml @ 200 mls/hr Q12 IVPB Last administered on 09/08/18 08:40; Admin Dose 200 MLS/HR; Start 09/05/18 at 23:00 Ceftazidime 50 ml @ 100 mls/hr Q24H IVPB Last administered on 09/08/18at 06:01; Admin Dose 100 MLS/HR; Start 09/07/18 at 06:00 Famotidine (Pepcid) 20 mg DAILY GTB Last administered on 09/08/18at 08:40; Admin Dose 20 MG; Start 09/07/18 at 09:00 Heparin Sodium (Porcine) (Heparin (5000 Units/1ml)) 5,000 unit Q12 SC Last administered on 09/08/18at 08:49; Admin Dose 5,000 UNIT; Start 09/06/18 at 21:00 IV Flush (NS 10 ml) 10 ml PRN PRN IV IV PROTOCOL; Start 09/06/18 at 17:30 Albumin Human 100 ml @ 100 mls/hr DURING DIALYSIS PRN IV BLOOD PRESSURE SUPPORT Last administered on 09/07/18at 18:04; Admin Dose 100 MLS/HR; Start 09/07/18 at 09:30 Norepinephrine 250 ml @ 1.875 mls/ hr TITRATE IV ; Start 09/07/18 at 12:30 Dextrose/Sodium Chloride 1,000 ml @ 60 mls/hr [id number] IV Last administered on 09/07/18at 18:09; Admin Dose 60 MLS/HR; Start 09/07/18 at 18:00 Albuterol (Ventolin Hfa) 4 puff Q6H RESP THERAPY INH ; Start 09/08/18 at 14:00; Status UNV Ipratropium Rainbow (Atrovent Hfa) 4 puff Q6HWA RESP THERAPY INH ; Start 09/08/18 at 14:00; Status UNV TATI CARDOZA Sep 08, 2018 09:01
--- NOTE | 2018-09-08 09:36 | CONS ---
Assessment/Plan Assessment/Plan Hospital Course (Demo Recall) 1. Acute renal failure. He is now anuric . His BP is higher today and he is off pressors.. He had his first hemodialysis treatment yesterday. The treatment went well and 1500 cc of fluid was removed. He will have a second hemodialysis treatment today. The next dialysis could be tomorrow or Tuesday. This will depend on his laboratory tests and how well he tolerates dialysis today. 2. Respiratory failure . He has a tracheostomy and is back on the ventilator. 3. Fever, he is being treated with broad-spectrum antibiotics. He has been afebrile the last 2 days. 4. Morbid obesity 5. Encephalopathy , he seems slightly more lucid today. Consultation Date/Type/Reason Admit Date/Time Aug 08, 2018 at 17:18 Initial Consult Date 09/06/18 Type of Consult Nephrology Requesting Provider: TATI CARDOZA Date/Time of Note DATE: 09/08/18 TIME: 09:30 24 HR Interval Summary Free Text/Dictation This patient is being seen in the intensive care unit. He is awake but is not following commands at this time. He is with a tracheostomy and is back on the ventilator. He had his first hemodialysis treatment yesterday. Subjective hx not possible: pt non-verbal Exam/Review of Systems Exam Vitals Vital Signs Date Temp Pulse Resp B/P (MAP) Pulse Ox O2 O2 Flow FiO2 Time Delivery Rate 09/08/18 97.7 105 25 129/79 96 Mechanical 06:00 (96) Ventilator 09/08/18 70 05:28 09/07/18 10.0 12:00 Intake and Output 09/07/18 09/07/18 09/08/18 1414:59 22:59 06:59 IntakeIntake Total 1120 ml 375 ml 0 ml OutputOutput Total 0 ml 2302 ml 0 ml BalanceBalance 1120 ml -1927 ml 0 ml Constitutional: non-verbal, frail, obese ENMT: intubated Respiratory: diminished breath sounds Cardiovascular: regular rate and rhythm, edema Gastrointestinal: soft Extremities: edema Results Result Diagram: 09/08/18 0430 09/08/18 0430 Results 24hrs Laboratory Tests Test 09/07/18 13:30 09/07/18 19:00 09/08/18 04:30 Blood Gas Specimen Blood arterial Blood arterial Source Arterial Blood Date 09/07/2018 1:20:32 PM 09/07/2018 9:38:36 PM Drawn Arterial Blood pH 7.249 *L 7.263 *L (Temp corrected) Arterial Blood pCO2 57.8 H 59.8 H (Temp correct) Arterial Blood pO2 43.4 *L 144.6 H (Temp corrected) Arterial Blood HCO3 24.7 26.4 H Arterial Blood Base -3.1 L -1.5 Excess Arterial Blood 66.8 L 98.6 H Oxygen Saturation James Test ACCEPTAB N/A Arterial Blood Gas Right Radial Right Radial Puncture Site Arterial 0.1 0 Blood Carboxyhemoglob in Arterial Blood 0.5 0.6 Methemoglobin Blood Gas A-a O2 175.3 H Differential Oxyhemoglobin Percent 66.4 L 98.0 Blood Gas Temperature 37.0 37.0 Blood Gas Actual 28 23 Respiration Rate Blood Gas Modality TRACH COLLAR VENT - AC FiO2 40.0 30.0 Blood Gas Critical ROSMERY Valadez RN Value Read Back Blood Gas Notified ANJEL ENRIQUE S.H. Whom Blood Gas Notified 09/07/2018 1:37:04 PM 09/07/2018 9:55:42 PM Time Blood Gas Respiration 20.0 Rate Blood Gas Tidal 550.0 Volume Blood Gas Inspiratory 29.0 Pressure White Blood Count 27.1 H Red Blood Count 4.13 L Hemoglobin 9.6 L Hematocrit 34.6 L Mean Corpuscular 83.8 Volume Mean Corpuscular 23.2 L Hemoglobin Mean Corpuscular 27.7 L Hemoglobin Concent Red Cell Distribution 20.8 H Width Platelet Count 272 Mean Platelet Volume 10.3 Immature Granulocytes 8.000 H % Neutrophils % Lymphocytes % Monocytes % Eosinophils % Basophils % Nucleated Red Blood 0.4 H Cells % Immature Granulocytes 2.170 H # Neutrophils # Lymphocytes # Monocytes # Eosinophils # Basophils # Nucleated Red Blood Cells # Sodium Level 135 Potassium Level 5.7 H Chloride Level 95 L Carbon Dioxide Level 25 Anion Gap 15 H Blood Urea Nitrogen 115 H Creatinine 4.74 H Est Glomerular 14 L Filtrat Rate mL/min Glucose Level 150 Calcium Level 10.7 H Total Bilirubin 2.2 H Direct Bilirubin 1.90 #H Indirect Bilirubin 0.3 Aspartate Amino 29 Transf (AST/SGOT) Alanine 37 Aminotransferase (ALT /SGPT) Alkaline Phosphatase 107 Total Protein 6.4 Albumin 3.0 L Globulin 3.40 H Albumin/Globulin 0.88 Ratio Medications Medication Current Medications IV Flush (NS 3 ml) 3 ml PER PROTOCOL IV ; Start 08/08/18 at 17:30 Ondansetron HCl (Zofran Inj) 4 mg Q6H PRN IV NAUSEA; Start 08/08/18 at 17:30 Midazolam HCl 50 ml @ 1 mls/hr TITRATE IV Last administered on 08/25/18 11:49; Admin Dose 4 MLS/HR; Start 08/13/18 at 08:30 Naphazoline HCl (Clear Eyes / Naphcon) 2 drop QID BOTH EYES Last administered on 09/08/18 08:41; Admin Dose 2 DROP; Start 08/16/18 at 18:14 Acetaminophen (Tylenol Liquid) 650 mg Q6H PRN NGT MILD PAIN(1-3)OR ELEVATED TEMP Last administered on 09/07/18 00:16; Admin Dose 650 MG; Start 08/17/18 at 00:57 Lorazepam (Ativan) 1 mg Q6H PRN IV AGITATION Last administered on 09/05/18 16:09; Admin Dose 1 MG; Start 08/28/18 at 02:30 Morphine Sulfate (morphine) 2 mg Q2H PRN IV SEVERE PAIN LEVEL 7-10 Last administered on 09/05/18 17:08; Admin Dose 2 MG; Start 08/28/18 at 09:00 Metronidazole (Flagyl) 500 mg Q8 NGT Last administered on 09/08/18 06:01; Admin Dose 500 MG; Start 08/30/18 at 14:00 Scopolamine (Transderm-Scop) 1 patch Q72H TRANSDERM Last administered on 09/06/18 11:47; Admin Dose 1 PATCH; Start 08/31/18 at 11:30 Docusate Sodium (Colace Liquid Cup) 200 mg BID NGT Last administered on 09/08/18 08:39; Admin Dose 200 MG; Start 09/04/18 at 21:00 Polyethylene Glycol (Miralax) 17 gm DAILY GTB Last administered on 09/08/18 08:40; Admin Dose 17 GM; Start 09/05/18 at 10:30 Quetiapine Fumarate (Seroquel) 25 mg BID GTB Last administered on 09/08/18 08:40; Admin Dose 25 MG; Start 09/05/18 at 21:00 Tigecycline 50 mg/ Sodium Chloride 100 ml @ 200 mls/hr Q12 IVPB Last administered on 09/08/18at 08:40; Admin Dose 200 MLS/HR; Start 09/05/18 at 23:00 Ceftazidime 50 ml @ 100 mls/hr Q24H IVPB Last administered on 09/08/18at 06:01; Admin Dose 100 MLS/HR; Start 09/07/18 at 06:00 Famotidine (Pepcid) 20 mg DAILY GTB Last administered on 09/08/18at 08:40; Admin Dose 20 MG; Start 09/07/18 at 09:00 Heparin Sodium (Porcine) (Heparin (5000 Units/1ml)) 5,000 unit Q12 SC Last administered on 09/08/18at 08:49; Admin Dose 5,000 UNIT; Start 09/06/18 at 21:00 IV Flush (NS 10 ml) 10 ml PRN PRN IV IV PROTOCOL; Start 09/06/18 at 17:30 Albumin Human 100 ml @ 100 mls/hr DURING DIALYSIS PRN IV BLOOD PRESSURE SUPPORT Last administered on 09/07/18at 18:04; Admin Dose 100 MLS/HR; Start 09/07/18 at 09:30 Norepinephrine 250 ml @ 1.875 mls/ hr TITRATE IV ; Start 09/07/18 at 12:30 Dextrose/Sodium Chloride 1,000 ml @ 60 mls/hr [id number] IV Last administered on 09/07/18at 18:09; Admin Dose 60 MLS/HR; Start 09/07/18 at 18:00 Albuterol (Ventolin Hfa) 4 puff Q6H RESP THERAPY INH ; Start 09/08/18 at 09:00 Ipratropium [place] (Atrovent Hfa) 4 puff Q6HWA RESP THERAPY INH ; Start 09/08/18 at 09:00 LELAND HOPKINS MD Sep 08, 2018 09:36
--- NOTE | 2018-09-08 09:55 | CONS ---
Assessment/Plan Assessment/Plan Hospital Course (Demo Recall) ID PROGRESS NOTE CURRENT ABX: DAY # 31=> FORTAZ #4+ TYGACIL # + Flagyl 09/04 Zyvox + Colistin Diflucan -> DC'd s/p Vanco IV/Zosyn 09/08/18 0430 09/08/18 0430 24H INTERVAL SUMMARY * Developed respiratory distress yesterday --now back on AC Vent * WBC elevated in part due to ABX holiday and partial IV STEROIDS DEMARGINATION * MARTINE partially due to Colimycin for ACBA MDRO pulmonary sepsis = HD PLAN INITIATED * Afebrile this am --Tmax yesterday 99.6 -- Tmax 102.0 x prior 48H after ABX Colisitn/Zyvox DC'd due to MARTINE. * BCx (-), Urine Cx(-), Sputum -- pending * WBC rising post ABX holiday = sepsis + partial IV steroids demargination * ABX changed to Fortaz + Tygacil ==> Of note: Tygacil can take 48H to penetrate the tissues to optimal antimicrobial levels; so hopefully patient may demonstrate improved response to current ABX today. * NEW PICC Placed 09/06/18 * FC changed 09/06/18 * 09/05/19 ABD XR revealed: Findings of small bowel obstruction with a possible mass, fluid collection, or hematoma in the left abdomen. DIAGNOSTIC IMAGING * 09/06/18 CXR: IMPRESSION: * 1. Tracheostomy and PICC line in appropriate position. * 2. Similar bilateral perihilar interstitial opacities representing pulmonary edema or infection. * 3. Small left pleural effusion * 09/05/18 liver US: IMPRESSION:Diffuse fatty infiltration of an enlarged liver.Pancreas not well visualized. If characterization of this structure is needed repeat exam or CT/MRI is recommended. * 09/05/18 ABD XR: IMPRESSION: Findings of small bowel obstruction with a possible mass, fluid collection, or hematoma in the left abdomen. * 09/05/18 CXR: IMPRESSION: * 1. Persistent mild cardiomegaly with the pulmonary vasculature upper normal. * 2. Significant improvement with regards to the diffuse interstitial infiltrates with foci of discoid atelectasis seen within the mid and lower lung zones. Blebs are seen to project in the right mid lung zone now more conspicuous. * 3. Possible small left pleural fluid accumulation, unchanged. MICRO/OTHER * 09/05/18 Urine Cx (-) * 09/05/18 BCx(-) * 08/30/18 BCx (-) * 08/29/18 PICC Tip (-) * 08/29/18 BCx (-) * 08/29/18 RESP CX: RESPIRATORY CULTURE Final Organism 1 ACINETOBACTER BAUMANNII QUANTITY 1+ A.BAUMANNI A.BAUMANNI M.I.C. RX M.I.C. RX --------- --- --------- --- AMIKACIN R CEFEPIME >=64 R CEFTAZIDIME 16 I CIPROFLOXACIN >=4 R GENTAMICIN >=16 R LEVOFLOXACIN >=8 R MEROPENEM >32 R TOBRAMYCIN >=16 R TRIMETHOPRIM/SULFAMETHOXAZOLE >=320 R PIPERACILLIN/TAZOBACTAM >=128 R * 08/26/18 (-)C.Diff * 08/26/18 BCX (+) Cons BLOOD CULTURE Final BCULT GRAM BOTTLE 1 Gram positive cocci in clusters 1 of 2 bottles . seen on gram stain of the broth Organism 1 COAGULASE NEGATIVE STAPH * 08/16/18 Respiratory Cx (+)ACBA = MDRO * 08/09/18 BRONCH (-) * 08/08/18 (-)MRSA, (-)Influenza A/B, (-)UTI * 08/08/18 BCx (-) * PHYSICAL EXAMINATION: GENERAL: Non-communicative, super morbid obese M, orally intubated, sedated on the Vent, looks comfortable, NAD HEENT: AT, NC, anicteric NECK: Supple, (+)Trach in place CHEST: Equal chest rise bilaterally, without dyspnea on observation = Vented HEART: Pulse RRR ABDOMEN: Soft / NT EXTREMITIES: Warm, dry SKIN: No rash, no diaphoresis, multiple Tattoos ID ASSESSMENT 32 yo Super Morbid Obese M admit with: 1. Sepsis w/Fevers - MULTIFACTORIAL ETIOLOGIES * => s/p FEVERS 09/05/18 w/ABX Holiday Trial NOW RESOLVED * LEUKOCYTOSIS =partial iv steroids demargination * 09/05/18 Urine Cx (-) * 09/05/18 BCx(-) * HCAP superimposed on probable ASP PNA * S/P PICC Line Sepsis -- BCx (+) opportunistic CoNS -- PICC Line DC'd 08/29/18 2. Leukocytosis - partial IV steroids demargination 3. PNA -- ASP PNA risk factors * 08/09/18 BRONCH (-) * 08/29/18 RESP CX: RESPIRATORY CULTURE Final Organism 1 ACINETOBACTER BAUMANNII = MDRO 4. Acute hypoxic respiratory failure => s/p Trach placement 5. Obstructive Sleep Apnea/Obesity hypoventilation syndrome 6. MARTINE partially due to Colimycin for ACBA MDRO pulmonary sepsis = Colimycin DC'd 09/04/18 7. Fatty Liver w/abnormal ABX XR ? Mass vs Hematoma * 09/05/18 ABD XR: IMPRESSION: Findings of small bowel obstruction with a possible mass, fluid collection, or hematoma in the left abdomen. 8. Ileus vs SBO 9. 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 Diarrhea = ABX associated w/(-)C.Diff toxin (-)MRSA Nares ABX ALLERGIES: KNDA INVASIVES: Trach, PEG, NEW PICC (09/06/18), FC changed 09/06/18 CURRENT ABX: DAY 31=> FORTAZ #4+ TYGACIL # + Flagyl 09/04 Zyvox + Colistin Diflucan -> DC'd s/p Vanco IV/Zosyn ID RECOMMENDATIONS/PLAN: 1. Continue current ABX 2. IV steroids tapering 2. Family consented for HD Nikko placement w/HD -PLAN IS FOR RENAL RECOVERY = AVOID NEPHROTOXIC ABX Consultation Date/Type/Reason Admit Date/Time Aug 08, 2018 at 17:18 Initial Consult Date 08/09/18 Requesting Provider: TATI CARDOZA Date/Time of Note DATE: 09/08/18 TIME: 09:48 Exam/Review of Systems Exam Vitals Vital Signs Date Temp Pulse Resp B/P (MAP) Pulse Ox O2 O2 Flow FiO2 Time Delivery Rate 09/08/18 106 26 140/75 95 09:00 (96) 09/08/18 99.0 Mechanical 08:00 Ventilator 09/08/18 70 05:28 09/07/18 10.0 12:00 Intake and Output 09/07/18 09/07/18 09/08/18 1515:00 23:00 07:00 IntakeIntake Total 1070 ml 250 ml 0 ml OutputOutput Total 0 ml 2302 ml 0 ml BalanceBalance 1070 ml -2052 ml 0 ml Results Result Diagram: 09/08/18 0430 09/08/18 0430 Results 24hrs Laboratory Tests Test 09/07/18 13:30 09/07/18 19:00 09/08/18 04:30 Blood Gas Specimen Blood arterial Blood arterial Source Arterial Blood Date 09/07/2018 1:20:32 PM 09/07/2018 9:38:36 PM Drawn Arterial Blood pH 7.249 *L 7.263 *L (Temp corrected) Arterial Blood pCO2 57.8 H 59.8 H (Temp correct) Arterial Blood pO2 43.4 *L 144.6 H (Temp corrected) Arterial Blood HCO3 24.7 26.4 H Arterial Blood Base -3.1 L -1.5 Excess Arterial Blood 66.8 L 98.6 H Oxygen Saturation James Test ACCEPTAB N/A Arterial Blood Gas Right Radial Right Radial Puncture Site Arterial 0.1 0 Blood Carboxyhemoglob in Arterial Blood 0.5 0.6 Methemoglobin Blood Gas A-a O2 175.3 H Differential Oxyhemoglobin Percent 66.4 L 98.0 Blood Gas Temperature 37.0 37.0 Blood Gas Actual 28 23 Respiration Rate Blood Gas Modality TRACH COLLAR VENT - AC FiO2 40.0 30.0 Blood Gas Critical ROSMERY Valadez RN Value Read Back Blood Gas Notified ANJEL ENRIQUE S.H. Whom Blood Gas Notified 09/07/2018 1:37:04 PM 09/07/2018 9:55:42 PM Time Blood Gas Respiration 20.0 Rate Blood Gas Tidal 550.0 Volume Blood Gas Inspiratory 29.0 Pressure White Blood Count 27.1 H Red Blood Count 4.13 L Hemoglobin 9.6 L Hematocrit 34.6 L Mean Corpuscular 83.8 Volume Mean Corpuscular 23.2 L Hemoglobin Mean Corpuscular 27.7 L Hemoglobin Concent Red Cell Distribution 20.8 H Width Platelet Count 272 Mean Platelet Volume 10.3 Immature Granulocytes 8.000 H % Neutrophils % Segmented Neutrophils 61 % (Manual) Band Neutrophils % 24 H (Manual) Lymphocytes % Lymphocytes % 6 L (Manual) Monocytes % Monocytes % (Manual) 4 Eosinophils % Basophils % Metamyelocytes % 1 H (manual) Myelocytes % (Manual) 3 H Promyelocytes % 1 H (Manual) Nucleated Red Blood 1 H Cells % Immature Granulocytes 2.170 H # Neutrophils # Neutrophils # 18.3 H (Manual) Band Neutrophils # 6.5 H Lymphocytes (Manual) 1.6 Lymphocytes # Monocytes # Monocytes # (Manual) 1.0 H Eosinophils # Basophils # Metamyelocytes # 0.2 H Myelocytes # 0.8 H Promyelocytes # 0.2 H Nucleated Red Blood Cells # Toxic Granulation 2+ Platelet Estimate NORMAL Poikilocytosis 1+ Anisocytosis 1+ Macrocytosis 1+ Spherocytes 1+ Target Cells 1+ Sodium Level 135 Potassium Level 5.7 H Chloride Level 95 L Carbon Dioxide Level 25 Anion Gap 15 H Blood Urea Nitrogen 115 H Creatinine 4.74 H Est Glomerular 14 L Filtrat Rate mL/min Glucose Level 150 Calcium Level 10.7 H Total Bilirubin 2.2 H Direct Bilirubin 1.90 #H Indirect Bilirubin 0.3 Aspartate Amino 29 Transf (AST/SGOT) Alanine 37 Aminotransferase (ALT /SGPT) Alkaline Phosphatase 107 Total Protein 6.4 Albumin 3.0 L Globulin 3.40 H Albumin/Globulin 0.88 Ratio Medications Medication Current Medications IV Flush (NS 3 ml) 3 ml PER PROTOCOL IV ; Start 08/08/18 at 17:30 Ondansetron HCl (Zofran Inj) 4 mg Q6H PRN IV NAUSEA; Start 08/08/18 at 17:30 Midazolam HCl 50 ml @ 1 mls/hr TITRATE IV Last administered on 08/25/18at 11:49; Admin Dose 4 MLS/HR; Start 08/13/18 at 08:30 Naphazoline HCl (Clear Eyes / Naphcon) 2 drop QID BOTH EYES Last administered on 09/08/18 08:41; Admin Dose 2 DROP; Start 08/16/18 at 18:14 Acetaminophen (Tylenol Liquid) 650 mg Q6H PRN NGT MILD PAIN(1-3)OR ELEVATED TEMP Last administered on 09/07/18 00:16; Admin Dose 650 MG; Start 08/17/18 at 00:57 Lorazepam (Ativan) 1 mg Q6H PRN IV AGITATION Last administered on 09/05/18 16:09; Admin Dose 1 MG; Start 08/28/18 at 02:30 Morphine Sulfate (morphine) 2 mg Q2H PRN IV SEVERE PAIN LEVEL 7-10 Last administered on 09/05/18 17:08; Admin Dose 2 MG; Start 08/28/18 at 09:00 Metronidazole (Flagyl) 500 mg Q8 NGT Last administered on 09/08/18 06:01; Ad min Dose 500 MG; Start 08/30/18 at 14:00 Scopolamine (Transderm-Scop) 1 patch Q72H TRANSDERM Last administered on 09/06/18 11:47; Admin Dose 1 PATCH; Start 08/31/18 at 11:30 Docusate Sodium (Colace Liquid Cup) 200 mg BID NGT Last administered on 09/08/18 08:39; Admin Dose 200 MG; Start 09/04/18 at 21:00 Polyethylene Glycol (Miralax) 17 gm DAILY GTB Last administered on 09/08/18 08:40; Admin Dose 17 GM; Start 09/05/18 at 10:30 Quetiapine Fumarate (Seroquel) 25 mg BID GTB Last administered on 09/08/18 08:40; Admin Dose 25 MG; Start 09/05/18 at 21:00 Tigecycline 50 mg/ Sodium Chloride 100 ml @ 200 mls/hr Q12 IVPB Last administered on 09/08/18 08:40; Admin Dose 200 MLS/HR; Start 09/05/18 at 23:00 Ceftazidime 50 ml @ 100 mls/hr Q24H IVPB Last administered on 09/08/18 06:01; Admin Dose 100 MLS/HR; Start 09/07/18 at 06:00 Famotidine (Pepcid) 20 mg DAILY GTB Last administered on 2/22/19at 08:40; Admin Dose 20 MG; Start 09/07/18 at 09:00 Heparin Sodium (Porcine) (Heparin (5000 Units/1ml)) 5,000 unit Q12 SC Last administered on 09/08/18at 08:49; Admin Dose 5,000 UNIT; Start 09/06/18 at 21:00 IV Flush (NS 10 ml) 10 ml PRN PRN IV IV PROTOCOL; Start 09/06/18 at 17:30 Albumin Human 100 ml @ 100 mls/hr DURING DIALYSIS PRN IV BLOOD PRESSURE SUPPORT Last administered on 09/07/18at 18:04; Admin Dose 100 MLS/HR; Start 09/07/18 at 09:30 Norepinephrine 250 ml @ 1.875 mls/ hr TITRATE IV ; Start 09/07/18 at 12:30 Dextrose/Sodium Chloride 1,000 ml @ 60 mls/hr [id number] IV Last administered on 09/07/18at 18:09; Admin Dose 60 MLS/HR; Start 09/07/18 at 18:00 Albuterol (Ventolin Hfa) 4 puff Q6H RESP THERAPY INH ; Start 09/08/18 at 09:00 Ipratropium [place] (Atrovent Hfa) 4 puff Q6HWA RESP THERAPY INH ; Start 09/08/18 at 09:00 GARCÍA JOHNSON NP Sep 08, 2018 09:55
[2018-09-08] MEDS: ALBUTEROL HFA 8 GM INHALER INH SCH ×3 (10:23→19:52)
[2018-09-08] MEDS: IPRATROPIUM (HFA) 12.9 GM INHALER INH SCH ×3 (10:24→19:52)
[2018-09-08] MEDS: DEXTROSE 5%-0.45% NACL 1,000 ML IV SCH (11:11)
--- NOTE | 2018-09-08 11:33 | CONS ---
Consult Date/Type/Reason Admit Date/Time Aug 08, 2018 at 17:18 Initial Consult Date 08/09/18 Type of Consult Pulmonary Requesting Provider: TATI CARDOZA Date/Time of Note DATE: 09/08/18 TIME: 11:32 Subjective Patient started on hemodialysis. And placed on mechanical ventilation overnight for respiratory distress. More comfortable this morning. Objective Vital Signs Date Temp Pulse Resp B/P (MAP) Pulse Ox O2 O2 Flow FiO2 Time Delivery Rate 09/08/18 102 24 136/75 94 10:00 (95) 09/08/18 70 08:00 09/08/18 99.0 Mechanical 08:00 Ventilator 09/07/18 10.0 12:00 Intake and Output 09/07/18 09/07/18 09/08/18 1414:59 22:59 06:59 IntakeIntake Total 1120 ml 375 ml 0 ml OutputOutput Total 0 ml 2302 ml 0 ml BalanceBalance 1120 ml -1927 ml 0 ml Exam GENERAL: Obese young gentleman tracheostomy on mechanical ventilation VITAL SIGNS: per chart NECK: Supple. No JVD or lymphadenopathy. CARDIAC EXAM: S1, S2. No added sounds or murmurs. CHEST: clear bilaterally, No added sounds, rales or wheezes ABDOMEN: Soft, nontender. No guarding or rebound. EXTREMITIES: No cyanosis, clubbing, edema +2 NEUROLOGIC: Generalized weakness. No focal deficits. Vent Setting Ventilator Support Mode: AC Fraction of Inspired Oxygen pe: 70 Positive End Expiratory Pressu: 5.0 Results/Medications Result Diagram: 09/08/18 0430 09/08/18 0430 Results 24 hrs Laboratory Tests Test 09/07/18 13:30 09/07/18 19:00 09/08/18 04:30 Blood Gas Specimen Blood arterial Blood arterial Source Arterial Blood Date 09/07/2018 1:20:32 PM 09/07/2018 9:38:36 PM Drawn Arterial Blood pH 7.249 *L 7.263 *L (Temp corrected) Arterial Blood pCO2 57.8 H 59.8 H (Temp correct) Arterial Blood pO2 43.4 *L 144.6 H (Temp corrected) Arterial Blood HCO3 24.7 26.4 H Arterial Blood Base -3.1 L -1.5 Excess Arterial Blood 66.8 L 98.6 H Oxygen Saturation James Test ACCEPTAB N/A Arterial Blood Gas Right Radial Right Radial Puncture Site Arterial 0.1 0 Blood Carboxyhemoglob in Arterial Blood 0.5 0.6 Methemoglobin Blood Gas A-a O2 175.3 H Differential Oxyhemoglobin Percent 66.4 L 98.0 Blood Gas Temperature 37.0 37.0 Blood Gas Actual 28 23 Respiration Rate Blood Gas Modality TRACH COLLAR VENT - AC FiO2 40.0 30.0 Blood Gas Critical RN Ifeoma Valadez RN Value Read Back Blood Gas Notified ANJEL ENRIQUE S.H. Whom Blood Gas Notified 09/07/2018 1:37:04 PM 09/07/2018 9:55:42 PM Time Blood Gas Respiration 20.0 Rate Blood Gas Tidal 550.0 Volume Blood Gas Inspiratory 29.0 Pressure White Blood Count 27.1 H Red Blood Count 4.13 L Hemoglobin 9.6 L Hematocrit 34.6 L Mean Corpuscular 83.8 Volume Mean Corpuscular 23.2 L Hemoglobin Mean Corpuscular 27.7 L Hemoglobin Concent Red Cell Distribution 20.8 H Width Platelet Count 272 Mean Platelet Volume 10.3 Immature Granulocytes 8.000 H % Neutrophils % Segmented Neutrophils 61 % (Manual) Band Neutrophils % 24 H (Manual) Lymphocytes % Lymphocytes % 6 L (Manual) Monocytes % Monocytes % (Manual) 4 Eosinophils % Basophils % Metamyelocytes % 1 H (manual) Myelocytes % (Manual) 3 H Promyelocytes % 1 H (Manual) Nucleated Red Blood 1 H Cells % Immature Granulocytes 2.170 H # Neutrophils # Neutrophils # 18.3 H (Manual) Band Neutrophils # 6.5 H Lymphocytes (Manual) 1.6 Lymphocytes # Monocytes # Monocytes # (Manual) 1.0 H Eosinophils # Basophils # Metamyelocytes # 0.2 H Myelocytes # 0.8 H Promyelocytes # 0.2 H Nucleated Red Blood Cells # Toxic Granulation 2+ Platelet Estimate NORMAL Poikilocytosis 1+ Anisocytosis 1+ Macrocytosis 1+ Spherocytes 1+ Target Cells 1+ Sodium Level 135 Potassium Level 5.7 H Chloride Level 95 L Carbon Dioxide Level 25 Anion Gap 15 H Blood Urea Nitrogen 115 H Creatinine 4.74 H Est Glomerular 14 L Filtrat Rate mL/min Glucose Level 150 Calcium Level 10.7 H Phosphorus Level 9.3 H Total Bilirubin 2.2 H Direct Bilirubin 1.90 #H Indirect Bilirubin 0.3 Aspartate Amino 29 Transf (AST/SGOT) Alanine 37 Aminotransferase (ALT /SGPT) Alkaline Phosphatase 107 Total Protein 6.4 Albumin 3.0 L Globulin 3.40 H Albumin/Globulin 0.88 Ratio Medications Current Medications IV Flush (NS 3 ml) 3 ml PER PROTOCOL IV ; Start 08/08/18 at 17:30 Ondansetron HCl (Zofran Inj) 4 mg Q6H PRN IV NAUSEA; Start 08/08/18 at 17:30 Midazolam HCl 50 ml @ 1 mls/hr TITRATE IV Last administered on 08/25/18 11:49; Admin Dose 4 MLS/HR; Start 08/13/18 at 08:30 Naphazoline HCl (Clear Eyes / Naphcon) 2 drop QID BOTH EYES Last administered on 09/08/18 08:41; Admin Dose 2 DROP; Start 08/16/18 at 18:14 Acetaminophen (Tylenol Liquid) 650 mg Q6H PRN NGT MILD PAIN(1-3)OR ELEVATED TEMP Last administered on 09/07/18 00:16; Admin Dose 650 MG; Start 08/17/18 at 00:57 Lorazepam (Ativan) 1 mg Q6H PRN IV AGITATION Last administered on 09/05/18 16:09; Admin Dose 1 MG; Start 08/28/18 at 02:30 Morphine Sulfate (morphine) 2 mg Q2H PRN IV SEVERE PAIN LEVEL 7-10 Last administered on 09/05/18 17:08; Admin Dose 2 MG; Start 08/28/18 at 09:00 Metronidazole (Flagyl) 500 mg Q8 NGT Last administered on 09/08/18 06:01; Admin Dose 500 MG; Start 08/30/18 at 14:00 Scopolamine (Transderm-Scop) 1 patch Q72H TRANSDERM Last administered on 09/06/18 11:47; Admin Dose 1 PATCH; Start 08/31/18 at 11:30 Docusate Sodium (Colace Liquid Cup) 200 mg BID NGT Last administered on 09/08/18 08:39; Admin Dose 200 MG; Start 09/04/18 at 21:00 Polyethylene Glycol (Miralax) 17 gm DAILY GTB Last administered on 09/08/18 08:40; Admin Dose 17 GM; Start 09/05/18 at 10:30 Quetiapine Fumarate (Seroquel) 25 mg BID GTB Last administered on 09/08/18 08:40; Admin Dose 25 MG; Start 09/05/18 at 21:00 Tigecycline 50 mg/ Sodium Chloride 100 ml @ 200 mls/hr Q12 IVPB Last administered on 09/08/18 08:40; Admin Dose 200 MLS/HR; Start 09/05/18 at 23:00 Ceftazidime 50 ml @ 100 mls/hr Q24H IVPB Last administered on 09/08/18 06:01; Admin Dose 100 MLS/HR; Start 09/07/18 at 06:00 Famotidine (Pepcid) 20 mg DAILY GTB Last administered on 09/08/18 08:40; Admin Dose 20 MG; Start 09/07/18 at 09:00 Heparin Sodium (Porcine) (Heparin (5000 Units/1ml)) 5,000 unit Q12 SC Last administered on 09/08/18 08:49; Admin Dose 5,000 UNIT; Start 09/06/18 at 21:00 IV Flush (NS 10 ml) 10 ml PRN PRN IV IV PROTOCOL; Start 09/06/18 at 17:30 Albumin Human 100 ml @ 100 mls/hr DURING DIALYSIS PRN IV BLOOD PRESSURE SUPPORT Last administered on 09/07/18 18:04; Admin Dose 100 MLS/HR; Start 09/07/18 at 09:30 Norepinephrine 250 ml @ 1.875 mls/ hr TITRATE IV ; Start 09/07/18 at 12:30 Dextrose/Sodium Chloride 1,000 ml @ 60 mls/hr Q90H18S IV Last administered on 09/08/18 11:11; Admin Dose 60 MLS/HR; Start 09/07/18 at 18:00 Albuterol (Ventolin Hfa) 4 puff Q6H RESP THERAPY INH Last administered on 09/08/18 10:23; Admin Dose 4 PUFF; Start 09/08/18 at 09:[address] [place] (Atrovent Hfa) 4 puff Q6HWA RESP THERAPY INH Last administered on 09/08/18 10:24; Admin Dose 4 PUFF; Start 09/08/18 at 09:00 Metoclopramide HCl (Reglan) 10 mg Q6H IV ; Start 09/08/18 at 12:00 Assessment/Plan Hospital Course (Demo Recall) IMP: 1. Acute on chronic hypoxemic and hypercapnic respiratory failure, failed multiple weaning trials status post tracheostomy. Significant secretions, 2. Component of diastolic dysfunction 3. History of obesity hypoventilation syndrome and probable obstructive sleep apnea 4. Leukocytosis With ongoing fevers and persistent diarrhea. 5. Acute renal failure. 6. Small bowel obstruction with severe sepsis RECS: 1. Continue AC mechanical ventilation for now not for weaning. 2. Continue ID recommendations 3. Tube feeding as tolerated, currently on hold GI evaluation 4. Acute renal failure continue hemodialysis per nephrology 5. Surgery recommendations with ongoing small bowel obstruction. Prognosis guarded 40 min cc time JULIETH PUENTE MD, [facility] Sep 08, 2018 11:33
--- NOTE | 2018-09-08 11:52 | CONS ---
Assessment/Plan Assessment/Plan Hospital Course (Demo Recall) Sinus tachycardia: Corresponds with febrile episodes. LVEF is hyperdynamic. Now better with resolution of fevers Acute renal failure: started on HD Acute on chronic respiratory failure: s/p tracheostomy this admission Acinetobacter PNA SBO Morbid obesity -antibiotics -IVF Consultation Date/Type/Reason Admit Date/Time Aug 08, 2018 at 17:18 Initial Consult Date 09/06/18 Type of Consult Cardiology Requesting Provider: TATI CARDOZA Date/Time of Note DATE: 09/08/18 TIME: 11:51 24 HR Interval Summary Free Text/Dictation No further fevers. HR low 100s. Started on HD yesterday Exam/Review of Systems Exam Vitals Vital Signs Date Temp Pulse Resp B/P (MAP) Pulse Ox O2 O2 Flow FiO2 Time Delivery Rate 09/08/18 102 24 136/75 94 10:00 (95) 09/08/18 70 08:00 09/08/18 99.0 Mechanical 08:00 Ventilator 09/07/18 10.0 12:00 Intake and Output 09/07/18 09/07/18 09/08/18 1515:00 23:00 07:00 IntakeIntake Total 1070 ml 250 ml 0 ml OutputOutput Total 0 ml 2302 ml 0 ml BalanceBalance 1070 ml -2052 ml 0 ml Constitutional: alert ENMT: other (s/p trach) Neck: No jvd (unable to assess) Respiratory: diminished breath sounds; No clear to auscultation Cardiovascular: edema (trace); No regular rate and rhythm (tachycardia low 100s), No systolic murmur Gastrointestinal: soft, distended; No non-tender Neurological: No nl mental status, No nl speech Results Result Diagram: 09/08/18 0430 09/08/18 0430 Results 24hrs Laboratory Tests Test 09/07/18 13:30 09/07/18 19:00 09/08/18 04:30 Blood Gas Specimen Blood arterial Blood arterial Source Arterial Blood Date 09/07/2018 1:20:32 PM 09/07/2018 9:38:36 PM Drawn Arterial Blood pH 7.249 *L 7.263 *L (Temp corrected) Arterial Blood pCO2 57.8 H 59.8 H (Temp correct) Arterial Blood pO2 43.4 *L 144.6 H (Temp corrected) Arterial Blood HCO3 24.7 26.4 H Arterial Blood Base -3.1 L -1.5 Excess Arterial Blood 66.8 L 98.6 H Oxygen Saturation James Test ACCEPTAB N/A Arterial Blood Gas Right Radial Right Radial Puncture Site Arterial 0.1 0 Blood Carboxyhemoglob in Arterial Blood 0.5 0.6 Methemoglobin Blood Gas A-a O2 175.3 H Differential Oxyhemoglobin Percent 66.4 L 98.0 Blood Gas Temperature 37.0 37.0 Blood Gas Actual 28 23 Respiration Rate Blood Gas Modality TRACH COLLAR VENT - AC FiO2 40.0 30.0 Blood Gas Critical RN Ifeoma Valadez RN Value Read Back Blood Gas Notified ANJEL ENRIQUE [facility]. Whom Blood Gas Notified 09/07/2018 1:37:04 PM 09/07/2018 9:55:42 PM Time Blood Gas Respiration 20.0 Rate Blood Gas Tidal 550.0 Volume Blood Gas Inspiratory 29.0 Pressure White Blood Count 27.1 H Red Blood Count 4.13 L Hemoglobin 9.6 L Hematocrit 34.6 L Mean Corpuscular 83.8 Volume Mean Corpuscular 23.2 L Hemoglobin Mean Corpuscular 27.7 L Hemoglobin Concent Red Cell Distribution 20.8 H Width Platelet Count 272 Mean Platelet Volume 10.3 Immature Granulocytes 8.000 H % Neutrophils % Segmented Neutrophils 61 % (Manual) Band Neutrophils % 24 H (Manual) Lymphocytes % Lymphocytes % 6 L (Manual) Monocytes % Monocytes % (Manual) 4 Eosinophils % Basophils % Metamyelocytes % 1 H (manual) Myelocytes % (Manual) 3 H Promyelocytes % 1 H (Manual) Nucleated Red Blood 1 H Cells % Immature Granulocytes 2.170 H # Neutrophils # Neutrophils # 18.3 H (Manual) Band Neutrophils # 6.5 H Lymphocytes (Manual) 1.6 Lymphocytes # Monocytes # Monocytes # (Manual) 1.0 H Eosinophils # Basophils # Metamyelocytes # 0.2 H Myelocytes # 0.8 H Promyelocytes # 0.2 H Nucleated Red Blood Cells # Toxic Granulation 2+ Platelet Estimate NORMAL Poikilocytosis 1+ Anisocytosis 1+ Macrocytosis 1+ Spherocytes 1+ Target Cells 1+ Sodium Level 135 Potassium Level 5.7 H Chloride Level 95 L Carbon Dioxide Level 25 Anion Gap 15 H Blood Urea Nitrogen 115 H Creatinine 4.74 H Est Glomerular 14 L Filtrat Rate mL/min Glucose Level 150 Calcium Level 10.7 H Phosphorus Level 9.3 H Total Bilirubin 2.2 H Direct Bilirubin 1.90 #H Indirect Bilirubin 0.3 Aspartate Amino 29 Transf (AST/SGOT) Alanine 37 Aminotransferase (ALT /SGPT) Alkaline Phosphatase 107 Total Protein 6.4 Albumin 3.0 L Globulin 3.40 H Albumin/Globulin 0.88 Ratio Medications Medication Current Medications IV Flush (NS 3 ml) 3 ml PER PROTOCOL IV ; Start 08/08/18 at 17:30 Ondansetron HCl (Zofran Inj) 4 mg Q6H PRN IV NAUSEA; Start 08/08/18 at 17:30 Midazolam HCl 50 ml @ 1 mls/hr TITRATE IV Last administered on 08/25/18 11:49; Admin Dose 4 MLS/HR; Start 08/13/18 at 08:30 Naphazoline HCl (Clear Eyes / Naphcon) 2 drop QID BOTH EYES Last administered on 09/08/18 08:41; Admin Dose 2 DROP; Start 08/16/18 at 18:14 Acetaminophen (Tylenol Liquid) 650 mg Q6H PRN NGT MILD PAIN(1-3)OR ELEVATED TEMP Last administered on 09/07/18 00:16; Admin Dose 650 MG; Start 08/17/18 at 00:57 Lorazepam (Ativan) 1 mg Q6H PRN IV AGITATION Last administered on 09/05/18 16:09; Admin Dose 1 MG; Start 08/28/18 at 02:30 Morphine Sulfate (morphine) 2 mg Q2H PRN IV SEVERE PAIN LEVEL 7-10 Last administered on 09/05/18 17:08; Admin Dose 2 MG; Start 08/28/18 at 09:00 Metronidazole (Flagyl) 500 mg Q8 NGT Last administered on 09/08/18 06:01; Admin Dose 500 MG; Start 08/30/18 at 14:00 Scopolamine (Transderm-Scop) 1 patch Q72H TRANSDERM Last administered on 09/06/18 11:47; Admin Dose 1 PATCH; Start 08/31/18 at 11:30 Docusate Sodium (Colace Liquid Cup) 200 mg BID NGT Last administered on 09/08/18 08:39; Admin Dose 200 MG; Start 09/04/18 at 21:00 Polyethylene Glycol (Miralax) 17 gm DAILY GTB Last administered on 09/08/18 08:40; Admin Dose 17 GM; Start 09/05/18 at 10:30 Quetiapine Fumarate (Seroquel) 25 mg BID GTB Last administered on 09/08/18 08:40; Admin Dose 25 MG; Start 09/05/18 at 21:00 Tigecycline 50 mg/ Sodium Chloride 100 ml @ 200 mls/hr Q12 IVPB Last administered on 09/08/18 08:40; Admin Dose 200 MLS/HR; Start 09/05/18 at 23:00 Ceftazidime 50 ml @ 100 mls/hr Q24H IVPB Last administered on 09/08/18 06:01; Admin Dose 100 MLS/HR; Start 09/07/18 at 06:00 Famotidine (Pepcid) 20 mg DAILY GTB Last administered on 09/08/18 08:40; Admin Dose 20 MG; Start 09/07/18 at 09:00 Heparin Sodium (Porcine) (Heparin (5000 Units/1ml)) 5,000 unit Q12 SC Last administered on 09/08/18 08:49; Admin Dose 5,000 UNIT; Start 09/06/18 at 21:00 IV Flush (NS 10 ml) 10 ml PRN PRN IV IV PROTOCOL; Start 09/06/18 at 17:30 Albumin Human 100 ml @ 100 mls/hr DURING DIALYSIS PRN IV BLOOD PRESSURE SUPPORT Last administered on 09/07/18 18:04; Admin Dose 100 MLS/HR; Start 09/07/18 at 09:30 Norepinephrine 250 ml @ 1.875 mls/ hr TITRATE IV ; Start 09/07/18 at 12:30 Dextrose/Sodium Chloride 1,000 ml @ 60 mls/hr [id number] IV Last administered on 09/08/18 11:11; Admin Dose 60 MLS/HR; Start 09/07/18 at 18:00 Albuterol (Ventolin Hfa) 4 puff Q6H RESP THERAPY INH Last administered on 09/08/18 10:23; Admin Dose 4 PUFF; Start 09/08/18 at 09:00 Ipratropium [place] (Atrovent Hfa) 4 puff Q6HWA RESP THERAPY INH Last administered on 2/22/19at 10:24; Admin Dose 4 PUFF; Start 09/08/18 at 09:00 Metoclopramide HCl (Reglan) 10 mg Q6H IV ; Start 09/08/18 at 12:00 KRISTA ROCHA Sep 08, 2018 11:52
[2018-09-08] MEDS: METOCLOPRAMIDE 10 MG INJ IV SCH ×2 (12:10→18:00)
--- NOTE | 2018-09-08 13:01 | CONS ---
Assessment/Plan Assessment/Plan Hospital Course 32 yo morbidly obese male with multiple comorbidities who is admitted to the [facility] ICU for management of acute respiratory failure...now s/p trach He is noted to be protractedly encephalopathic, for which neurology is consulted. PNA+ MARTINE worsening On daily iv steroids, which likely precipitate/exacerbate psychosis Receiving multiple psychotropics.. Most clinically consistent with an acute and multifactorial toxic-metabolic encephalopathy. A focal BLAST FURNACE KEEPER process is less likely. Patient's body habitus is reportedly not amendable to neuroimaging P: [place] as necessary Wean steroids as soon as able Agree w/ low dose seroquel prn in the short-term, to be titrated to effect PT/OT/ST when able to participate Other medical management per primary Will follow clinically Consultation Date/Type/Reason Admit Date/Time Aug 08, 2018 at 17:18 Type of Consult Neurology Reason for Consultation encephalopathy Requesting Provider: TATI CARDOZA Date/Time of Note DATE: 09/08/18 TIME: 13:01 24 HR Interval Summary Free Text/Dictation Continues critical care. Receiving HD today. Pt reportedly more awake today. Subjective hx not possible: pt non-verbal Exam Vital Signs Vitals Vital Signs Date Temp Pulse Resp B/P (MAP) Pulse Ox O2 O2 Flow FiO2 Time Delivery Rate 09/08/18 60 12:00 09/08/18 100.0 105 24 128/72 96 [place] 12:00 (90) l Ventilato r 09/07/18 10.0 12:00 Intake and Output 09/07/18 09/07/18 09/08/18 1515:00 23:00 07:00 IntakeIntake Total 1070 ml 250 ml 60 ml OutputOutput Total 0 ml 2302 ml 0 ml BalanceBalance 1070 ml -2052 ml 60 ml Exam PE: Gen Appearance: No Apparent Distress HEENT: Trached Cardiovascular: Tachycardic Abdomen: Soft, Obese Extremities: Dry NE: The patient was lethargic and nonverbal. He was able to track and follow simple axial/appendicular commands. Cranial nerve examination was limited by mental status. Pupils were equal and reactive to light. There was no afferent pupillary defect. Funduscopic examination was limited. Face was grossly symmetric, w/ present corneal and cough reflexes. Tone was normal. Muscle bulk was normal. I did not see fasciculations. The patient was very weak in the UE and symmetric; the pt was able to wiggle his toes Coordination and gait testing was limited by mental status. Arm and leg reflexes were within normal limits and symmetric. Grimm's sign was absent. Plantar responses were flexor. ARSENIO MAXWELL NP Sep 08, 2018 13:01 RAYMOND HERNANDEZ Sep 08, 2018 15:39
[2018-09-08] MEDS ORDERED: DIATR MEGLU/DIATRIZOATE SODIUM 120 ML BTL ONE (15:00)
--- NOTE | 2018-09-08 16:12 | PN ---
Date/Time of Note Date/Time of Note DATE: 09/08/18 TIME: 16:11 Assessment/Plan Lines/Catheters IV Catheter Type (from Nrsg): Nikko Catheter Santiago in Place (from Nrsg): Yes Assessment/Plan Assessment/Plan Respiratory failure Status post trach Patient improving Will remove sutures Subjective 24 Hr Interval Summary Constitutional: improved Pain Control: mild Exam/Review of Systems Vital Signs Vitals Vital Signs Date Temp Pulse Resp B/P (MAP) Pulse Ox O2 O2 Flow FiO2 Time Delivery Rate 09/08/18 114 16:01 09/08/18 17 119/83 95 14:00 (95) 09/08/18 Mechanica 13:41 l Ventilato r Trach Collar 09/08/18 60 12:00 09/08/18 100.0 12:00 09/07/18 10.0 12:00 Intake and Output 09/07/18 09/07/18 09/08/18 1515:00 23:00 07:00 IntakeIntake Total 1070 ml 250 ml 60 ml OutputOutput Total 0 ml 2302 ml 0 ml BalanceBalance 1070 ml -2052 ml 60 ml Exam ENMT: nl external ears & nose, nl lips & teeth, nl nasal mucosa & septum, mucosa pink and moist Neck: supple, non-tender Respiratory: clear to auscultation, normal air movement Cardiovascular: regular rate and rhythm, nl pulses Gastrointestinal: soft, nl liver, spleen, non-tender Musculoskeletal: nl extremities to inspection, nl gait and stance Results Result Diagram: 09/08/1842909/08/18429 TIMMY DALAL MD Sep 08, 2018 16:12
--- NOTE | 2018-09-08 16:31 | PN ---
Date/Time of Note Date/Time of Note DATE: 09/08/18 TIME: 16:28 Assessment/Plan Lines/Catheters IV Catheter Type (from Nrs): Nikko Catheter Santiago in Place (from Nrs): Yes Assessment/Plan Assessment/Plan Persistent ileus versus SBO. Limited small bowel follow-through was unhelpful yesterday. There was no identification of contrast in the abdomen on x-rays. CT would be very beneficial but unable to be performed. Concerned about PEG tube as there is still a large amount of drainage which does not seem to be enteric Recommend G-tube study either under fluoroscopy or at bedside Patient does not have a surgical abdomen at this point. However, it is quite difficult to assess. Further, not sure the patient is a surgical candidate at this point. Surgery would be extremely high risk and extremely difficult based on weight. . Subjective 24 Hr Interval Summary Subjective hx not possible: other (Debated but more responsive today.) Feeding: NPO Exam/Review of Systems Vital Signs Vitals Vital Signs Date Temp Pulse Resp B/P (MAP) Pulse Ox O2 O2 Flow FiO2 Time Delivery Rate 09/08/18 114 16:01 09/08/18 98.5 25 105/77 98 Mechanical 16:00 (86) Ventilator 09/08/18 60 12:00 09/07/18 10.0 12:00 Intake and Output 09/07/18 09/07/18 09/08/18 1515:00 23:00 07:00 IntakeIntake Total 1070 ml 250 ml 60 ml OutputOutput Total 0 ml 2302 ml 0 ml BalanceBalance 1070 ml -2052 ml 60 ml Exam Respiratory: diminished breath sounds Cardiovascular: regular rate and rhythm Gastrointestinal: soft, non-tender Results Free Text/Dictation DIAGNOSTIC IMAGING REPORT Patient: HOWARD MIRANDA : 1985 Age: 32 Sex: M MR #: [id number] DOS: 09/08/18 0700 Ordering MD: CHRIS BARCENAS MD [facility]: [facility]: XR Abdomen. CLINICAL INDICATION: SBO TECHNIQUE: Portable supine AP views of the abdomen were obtained. x-ray. COMPARISON: ABDOMEN 09/07/2018 FINDINGS: Previously noted gastrostomy tube and Santiago catheter are seen. Right femoral catheter is seen. Dilated loops of small bowel in the right abdomen are again demonstrated. The stomach is distended. Otherwise there is a paucity of bowel gas in the left abdomen. The exam is limited due to body habitus. No abnormal calcifications are identified. The osseous structures are unremarkable. IMPRESSION: No significant change in the dilated small bowel in the mid abdomen. [facility] Physician Iza Date Time Electronically viewed and signed by Physician Iza on 09/08/2018 11:10 CS/ CC: CHRIS BARCENAS MD [id number] Result Diagram: 09/08/18 0430 09/08/18 0430 CHRIS BARCENAS MD Sep 08, 2018 16:31
[2018-09-08] MEDS: HEPARIN 1000 UNITS/ML 10 ML INJ CATHETER SCH (16:57)
[2018-09-08] MEDS: LORAZEPAM 2 MG INJ IV PRN (23:40)
[2018-09-09] VITALS (67 sets, daily range): BP systolic 58–119; BP diastolic 31–85; PULSE 112–123; RESP 10–33
[2018-09-09] MEDS: metroNIDAZOLE 500 MG TAB NGT SCH (00:43)
[2018-09-09] MEDS: METOCLOPRAMIDE 10 MG INJ IV SCH ×5 (01:40→23:56)
[2018-09-09] MEDS: ALBUTEROL HFA 8 GM INHALER INH SCH ×4 (01:43→20:02)
[2018-09-09] MEDS: DEXTROSE 5%-0.45% NACL 1,000 ML IV SCH ×2 (03:55→20:31)
[2018-09-09] MEDS: CEFTAZIDIME 1GM/50 ML (PMX) 50 ML IVPB SCH (06:02)
[2018-09-09] MEDS: IPRATROPIUM (HFA) 12.9 GM INHALER INH SCH ×3 (08:02→20:02)
[2018-09-09] MEDS: FAMOTIDINE 20 MG TAB GTB SCH (08:21)
[2018-09-09] MEDS: POLYETHYLENE GLYCOL 17 GM PACKET GTB SCH (08:21)
[2018-09-09] MEDS: DOCUSATE SODIUM 10 MG/ML (10ML CUP) NGT SCH ×2 (08:21→21:00)
[2018-09-09] MEDS: QUETIAPINE 25 MG TAB GTB SCH ×2 (08:21→21:00)
[2018-09-09] MEDS: NAPHAZOLINE 0.012% 15 ML OPH BOTH EYES SCH ×4 (08:22→21:17)
[2018-09-09] MEDS: HEPARIN 5,000 UNIT/1 ML VIAL SC SCH ×2 (08:29→21:23)
[2018-09-09] MEDS: TIGECYCLINE 50 MG in SOD CHLORIDE 0.9% 100 ML IVPB SCH ×2 (08:32→20:32)
[2018-09-09] MEDS ORDERED: DIATR MEGLU/DIATRIZOATE SODIUM 120 ML BTL ONE ×3 (09:16→12:49)
--- NOTE | 2018-09-09 10:04 | CONS ---
Assessment/Plan Assessment/Plan Hospital Course 32 yo morbidly obese male with multiple comorbidities who is admitted to the [facility] ICU for management of acute respiratory failure...now s/p trach He is noted to be protractedly encephalopathic, for which neurology is consulted. PNA+ MARTINE worsening On daily iv steroids, which likely precipitate/exacerbate psychosis Receiving multiple psychotropics.. Most clinically consistent with an acute and multifactorial toxic-metabolic encephalopathy. A focal FLUTE POLISHER process is less likely. Patient's body habitus is reportedly not amendable to neuroimaging P: [place] as necessary Wean steroids as soon as able Agree w/ low dose seroquel prn in the short-term, to be titrated to effect PT/OT/ST when able to participate Other medical management per primary Will follow clinically Consultation Date/Type/Reason Admit Date/Time Aug 08, 2018 at 17:18 Type of Consult Neurology Reason for Consultation encephalopathy Requesting Provider: TATI CARDOZA Date/Time of Note DATE: 09/09/18 TIME: 10:03 Exam Vital Signs Vitals Vital Signs Date Temp Pulse Resp B/P (MAP) Pulse Ox O2 O2 Flow FiO2 Time Delivery Rate 09/09/18 114 08:59 09/09/18 29 113/69 95 Mechanical 06:00 (84) Ventilator 09/09/18 45 05:30 09/09/18 99.4 04:00 09/07/18 10.0 12:00 Intake and Output 09/08/18 09/08/18 09/09/18 1515:00 23:00 07:00 IntakeIntake Total 640 ml 460 ml 420 ml OutputOutput Total 3100 ml 1050 ml BalanceBalance 640 ml -2640 ml -630 ml ARSENIO MAXWELL NP Sep 09, 2018 10:04 RAYMOND HERNANDEZ Sep 09, 2018 11:35
--- NOTE | 2018-09-09 10:33 | CONS ---
Consult Date/Type/Reason Admit Date/Time Aug 08, 2018 at 17:18 Initial Consult Date 08/09/18 Type of Consult Pulmonary Requesting Provider: TATI CARDOZA Date/Time of Note DATE: 09/09/18 TIME: 10:30 Subjective Objective Vital Signs Date Temp Pulse Resp B/P (MAP) Pulse Ox O2 O2 Flow FiO2 Time Delivery Rate 09/09/18 114 08:59 09/09/18 29 113/69 95 Mechanical 06:00 (84) Ventilator 09/09/18 45 05:30 09/09/18 99.4 04:00 09/07/18 10.0 12:00 Intake and Output 09/08/18 09/08/18 09/09/18 1515:00 23:00 07:00 IntakeIntake Total 640 ml 460 ml 420 ml OutputOutput Total 3100 ml 1050 ml BalanceBalance 640 ml -2640 ml -630 ml Exam GENERAL: Obese young gentleman tracheostomy on mechanical ventilation VITAL SIGNS: per chart NECK: Supple. No JVD or lymphadenopathy. CARDIAC EXAM: S1, S2. No added sounds or murmurs. CHEST: clear bilaterally, No added sounds, rales or wheezes ABDOMEN: Soft, nontender. No guarding or rebound. EXTREMITIES: No cyanosis, clubbing, edema +2 NEUROLOGIC: Generalized weakness. No focal deficits. Vent Setting Ventilator Support Mode: AC, VC plus Fraction of Inspired Oxygen pe: 45 Positive End Expiratory Pressu: 5.0 Results/Medications Result Diagram: 09/09/18 0430 09/09/18 0430 Results 24 hrs Laboratory Tests Test 09/09/18 04:30 White Blood Count 29.1 H Red Blood Count 4.24 L Hemoglobin 10.0 L Hematocrit 34.6 L Mean Corpuscular Volume 81.6 L Mean Corpuscular Hemoglobin 23.6 L Mean Corpuscular Hemoglobin Concent 28.9 L Red Cell Distribution Width 21.7 H Platelet Count 274 Mean Platelet Volume 10.3 Immature Granulocytes % 4.400 H Neutrophils % Segmented Neutrophils % (Manual) 78 H Band Neutrophils % (Manual) 9 H Lymphocytes % Lymphocytes % (Manual) 7 L Monocytes % Monocytes % (Manual) 4 Eosinophils % Basophils % Myelocytes % (Manual) 1 H Plasma Cells % (manual) 1 Nucleated Red Blood Cells % 1 H Immature Granulocytes # 1.280 H Neutrophils # Neutrophils # (Manual) 23.5 H Band Neutrophils # 2.6 H Lymphocytes (Manual) 2.0 Lymphocytes # Monocytes # Monocytes # (Manual) 1.1 H Eosinophils # Basophils # Myelocytes # 0.2 H Plasma Cells # (manual) 0.2 H Nucleated Red Blood Cells # Toxic Granulation 1+ Platelet Estimate NORMAL Giant Platelets 1 H Platelet Morphology Comment @See below Polychromasia 2+ Hypochromasia 2+ Poikilocytosis 1+ Anisocytosis 1+ Microcytosis 1+ Sodium Level 136 Potassium Level 4.7 Chloride Level 95 L Carbon Dioxide Level 21 Anion Gap 20 H Blood Urea Nitrogen 105 H Creatinine 4.97 H Est Glomerular Filtrat Rate mL/min 14 L Glucose Level 128 Calcium Level 10.4 H Total Bilirubin 1.5 H Direct Bilirubin 1.30 #H Indirect Bilirubin 0.2 Aspartate Amino Transf (AST/SGOT) 29 Alanine Aminotransferase (ALT/SGPT) 36 Alkaline Phosphatase 127 H Total Protein 6.5 Albumin 2.9 L Globulin 3.60 H Albumin/Globulin Ratio 0.80 Medications Current Medications IV Flush (NS 3 ml) 3 ml PER PROTOCOL IV ; Start 08/08/18 at 17:30 Ondansetron HCl (Zofran Inj) 4 mg Q6H PRN IV NAUSEA; Start 08/08/18 at 17:30 Midazolam HCl 50 ml @ 1 mls/hr TITRATE IV Last administered on 08/25/18at 11:49; Admin Dose 4 MLS/HR; Start 08/13/18 at 08:30 Naphazoline HCl (Clear Eyes / Naphcon) 2 drop QID BOTH EYES Last administered on 09/09/18at 08:22; Admin Dose 2 DROP; Start 08/16/18 at 18:14 Acetaminophen (Tylenol Liquid) 650 mg Q6H PRN NGT MILD PAIN(1-3)OR ELEVATED TEM P Last administered on 09/07/18at 00:16; Admin Dose 650 MG; Start 08/17/18 at 00:57 Lorazepam (Ativan) 1 mg Q6H PRN IV AGITATION Last administered on 09/08/18at 23:40; Admin Dose 1 MG; Start 08/28/18 at 02:30 Morphine Sulfate (morphine) 2 mg Q2H PRN IV SEVERE PAIN LEVEL 7-10 Last administered on 09/05/18at 17:08; Admin Dose 2 MG; Start 08/28/18 at 09:00 Scopolamine (Transderm-Scop) 1 patch Q72H TRANSDERM Last administered on 09/06/18 11:47; Admin Dose 1 PATCH; Start 08/31/18 at 11:30 Docusate Sodium (Colace Liquid Cup) 200 mg BID NGT Last administered on 09/08/18 08:39; Admin Dose 200 MG; Start 09/04/18 at 21:00 Polyethylene Glycol (Miralax) 17 gm DAILY GTB Last administered on 09/08/18 08:40; Admin Dose 17 GM; Start 09/05/18 at 10:30 Quetiapine Fumarate (Seroquel) 25 mg BID GTB Last administered on 09/09/18 08:21; Admin Dose 25 MG; Start 09/05/18 at 21:00 Tigecycline 50 mg/ Sodium Chloride 100 ml @ 200 mls/hr Q12 IVPB Last administered on 09/09/18 08:32; Admin Dose 200 MLS/HR; Start 09/05/18 at 23:00 Ceftazidime 50 ml @ 100 mls/hr Q24H IVPB Last administered on 09/09/18 06:02; Admin Dose 100 MLS/HR; Start 09/07/18 at 06:00 Famotidine (Pepcid) 20 mg DAILY GTB Last administered on 09/09/18 08:21; Admin Dose 20 MG; Start 09/07/18 at 09:00 Heparin Sodium (Porcine) (Heparin (5000 Units/1ml)) 5,000 unit Q12 SC Last administered on 09/09/18 08:29; Admin Dose 5,000 UNIT; Start 09/06/18 at 21:00 IV Flush (NS 10 ml) 10 ml PRN PRN IV IV PROTOCOL; Start 09/06/18 at 17:30 Albumin Human 100 ml @ 100 mls/hr DURING DIALYSIS PRN IV BLOOD PRESSURE SUPPORT Last administered on 09/07/18 18:04; Admin Dose 100 MLS/HR; Start 09/07/18 at 09:30 Norepinephrine 250 ml @ 1.875 mls/ hr TITRATE IV ; Start 09/07/18 at 12:30 Dextrose/Sodium Chloride 1,000 ml @ 60 mls/hr [id number] IV Last administered on 2/23/19at 03:55; Admin Dose 60 MLS/HR; Start 09/07/18 at 18:00 Albuterol (Ventolin Hfa) 4 puff Q6H RESP THERAPY INH Last administered on 09/09/18 08:02; Admin Dose 4 PUFF; Start 09/08/18 at 09:00 Ipratropium [place] (Atrovent Hfa) 4 puff Q6HWA RESP THERAPY INH Last adm inistered on 09/09/18 08:02; Admin Dose 4 PUFF; Start 09/08/18 at 09:00 Metoclopramide HCl (Reglan) 10 mg Q6H IV Last administered on 09/09/18 06:02; Admin Dose 10 MG; Start 09/08/18 at 12:00 Heparin Sodium (Porcine) (Heparin (1000 Units/ml)) 3,100 unit PRN CATHETER Last administered on 09/08/18 16:57; Admin Dose 3,100 UNIT; Start 09/08/18 at 14:00 Metronidazole 100 ml @ 100 mls/hr Q8 IVPB ; Start 09/09/18 at 14:00 Assessment/Plan Hospital Course (Demo Recall) IMP: 1. Acute on chronic hypoxemic and hypercapnic respiratory failure, failed multiple weaning trials status post tracheostomy. Significant secretions, 2. Component of diastolic dysfunction 3. History of obesity hypoventilation syndrome and probable obstructive sleep apnea 4. Leukocytosis With ongoing fevers and persistent diarrhea. 5. Acute renal failure. 6. Small bowel obstruction with severe sepsis RECS: 1. Continue AC mechanical ventilation for now not for weaning. 2. Continue ID recommendations 3. Tube feeding as tolerated, currently on hold GI evaluation 4. Acute renal failure continue hemodialysis per nephrology 5. Surgery recommendations with ongoing small bowel obstruction. Prognosis guarded 40 min cc time JULIETH PUENTE MD, [facility] Sep 09, 2018 10:33
--- NOTE | 2018-09-09 11:58 | PN ---
Date/Time of Note Date/Time of Note DATE: 09/09/18 TIME: 11:47 Assessment/Plan VTE Prophylaxis Risk score (from [facility] [place])>0 risk: 9 SCD applied (from [facility] [place]): Yes Pharmacological prophylaxis: NA/contraindicated Pharm contraindication: bleeding Lines/Catheters [facility] (from [facility] Nikko cath Urinary Cath still in place: Yes Reason Cath still needed: skin wounds contaminated by urine Assessment/Plan Assessment/Plan Assessment: Accidental displacement of GT (Removed) r/o abdominal wall cellulitis (not evident thus far) VDRF Encephalopathy Morbid obesity Plan: Local Gt site care Review SBFT if no obstruction may use NGT for feedings Replace GT once abdominal wall healed Reassess feasibility of CT Result Diagram: 09/09/18 0430 09/09/18 0430 Results 24hrs Laboratory Tests Test 09/09/18 04:30 White Blood Count 29.1 H Red Blood Count 4.24 L Hemoglobin 10.0 L Hematocrit 34.6 L Mean Corpuscular Volume 81.6 L Mean Corpuscular Hemoglobin 23.6 L Mean Corpuscular Hemoglobin Concent 28.9 L Red Cell Distribution Width 21.7 H Platelet Count 274 Mean Platelet Volume 10.3 Immature Granulocytes % 4.400 H Neutrophils % Segmented Neutrophils % (Manual) 78 H Band Neutrophils % (Manual) 9 H Lymphocytes % Lymphocytes % (Manual) 7 L Monocytes % Monocytes % (Manual) 4 Eosinophils % Basophils % Myelocytes % (Manual) 1 H Plasma Cells % (manual) 1 Nucleated Red Blood Cells % 1 H Immature Granulocytes # 1.280 H Neutrophils # Neutrophils # (Manual) 23.5 H Band Neutrophils # 2.6 H Lymphocytes (Manual) 2.0 Lymphocytes # Monocytes # Monocytes # (Manual) 1.1 H Eosinophils # Basophils # Myelocytes # 0.2 H Plasma Cells # (manual) 0.2 H Nucleated Red Blood Cells # Toxic Granulation 1+ Platelet Estimate NORMAL Giant Platelets 1 H Platelet Morphology Comment @See below Polychromasia 2+ Hypochromasia 2+ Poikilocytosis 1+ Anisocytosis 1+ Microcytosis 1+ Sodium Level 136 Potassium Level 4.7 Chloride Level 95 L Carbon Dioxide Level 21 Anion Gap 20 H Blood Urea Nitrogen 105 H Creatinine 4.97 H Est Glomerular Filtrat Rate mL/min 14 L Glucose Level 128 Calcium Level 10.4 H Total Bilirubin 1.5 H Direct Bilirubin 1.30 #H Indirect Bilirubin 0.2 Aspartate Amino Transf (AST/SGOT) 29 Alanine Aminotransferase (ALT/SGPT) 36 Alkaline Phosphatase 127 H Total Protein 6.5 Albumin 2.9 L Globulin 3.60 H Albumin/Globulin Ratio 0.80 Subjective 24 Hr Interval Summary Free Text/Dictation GT clearly not in Gastric lumen Large amount of feeding solution draining per GT site NGT draining bilious material and no feeding material GT Removed without difficulty Will apply local care Ideally CT abdomen but appears not technically feasible Will closely monitor, replace GT once abdominal wall healed Review SBFT and if not obstruction may use Gt for feedings Exam/Review of Systems Exam Vitals Vital Signs Date Temp Pulse Resp B/P (MAP) Pulse Ox O2 O2 Flow FiO2 Time Delivery Rate 09/09/18 115 33 92/63 (73) 96 [place] 10:00 l Ventilato r 09/09/18 45 08:00 09/09/18 100.2 08:00 09/07/18 10.0 12:00 Intake and Output 09/08/18 09/08/18 09/09/18 1515:00 23:00 07:00 IntakeIntake Total 640 ml 460 ml 420 ml OutputOutput Total 3100 ml 1050 ml BalanceBalance 640 ml -2640 ml -630 ml Exam Abdomen: Soft, distended, significant drainage (feeding solution) GT site prior and post removal, no purulent discharge, no guarding/rebound tenderness. BS + Results Results 24hrs Laboratory Tests Test 09/09/18 04:30 White Blood Count 29.1 H Red Blood Count 4.24 L Hemoglobin 10.0 L Hematocrit 34.6 L Mean Corpuscular Volume 81.6 L Mean Corpuscular Hemoglobin 23.6 L Mean Corpuscular Hemoglobin Concent 28.9 L Red Cell Distribution Width 21.7 H Platelet Count 274 Mean Platelet Volume 10.3 Immature Granulocytes % 4.400 H Neutrophils % Segmented Neutrophils % (Manual) 78 H Band Neutrophils % (Manual) 9 H Lymphocytes % Lymphocytes % (Manual) 7 L Monocytes % Monocytes % (Manual) 4 Eosinophils % Basophils % Myelocytes % (Manual) 1 H Plasma Cells % (manual) 1 Nucleated Red Blood Cells % 1 H Immature Granulocytes # 1.280 H Neutrophils # Neutrophils # (Manual) 23.5 H Band Neutrophils # 2.6 H Lymphocytes (Manual) 2.0 Lymphocytes # Monocytes # Monocytes # (Manual) 1.1 H Eosinophils # Basophils # Myelocytes # 0.2 H Plasma Cells # (manual) 0.2 H Nucleated Red Blood Cells # Toxic Granulation 1+ Platelet Estimate NORMAL Giant Platelets 1 H Platelet Morphology Comment @See below Polychromasia 2+ Hypochromasia 2+ Poikilocytosis 1+ Anisocytosis 1+ Microcytosis 1+ Sodium Level 136 Potassium Level 4.7 Chloride Level 95 L Carbon Dioxide Level 21 Anion Gap 20 H Blood Urea Nitrogen 105 H Creatinine 4.97 H Est Glomerular Filtrat Rate mL/min 14 L Glucose Level 128 Calcium Level 10.4 H Total Bilirubin 1.5 H Direct Bilirubin 1.30 #H Indirect Bilirubin 0.2 Aspartate Amino Transf (AST/SGOT) 29 Alanine Aminotransferase (ALT/SGPT) 36 Alkaline Phosphatase 127 H Total Protein 6.5 Albumin 2.9 L Globulin 3.60 H Albumin/Globulin Ratio 0.80 Medications Medication Current Medications IV Flush (NS 3 ml) 3 ml PER PROTOCOL IV ; Start 08/08/18 at 17:30 Ondansetron HCl (Zofran Inj) 4 mg Q6H PRN IV NAUSEA; Start 08/08/18 at 17:30 Midazolam HCl 50 ml @ 1 mls/hr TITRATE IV Last administered on 08/25/18at 11:49; Admin Dose 4 MLS/HR; Start 08/13/18 at 08:30 Naphazoline HCl (Clear Eyes / Naphcon) 2 drop QID BOTH EYES Last administered on 09/09/18 08:22; Admin Dose 2 DROP; Start 08/16/18 at 18:14 Acetaminophen (Tylenol Liquid) 650 mg Q6H PRN NGT MILD PAIN(1-3)OR ELEVATED TEMP Last administered on 09/07/18at 00:16; Admin Dose 650 MG; Start 08/17/18 at 00:57 Lorazepam (Ativan) 1 mg Q6H PRN IV AGITATION Last administered on 09/08/18at 23:40; Admin Dose 1 MG; Start 08/28/18 at 02:30 Morphine Sulfate (morphine) 2 mg Q2H PRN IV SEVERE PAIN LEVEL 7-10 Last administered on 09/05/18 17:08; Admin Dose 2 MG; Start 08/28/18 at 09:00 Scopolamine (Transderm-Scop) 1 patch Q72H TRANSDERM Last administered on 09/06/18 11:47; Admin Dose 1 PATCH; Start 08/31/18 at 11:30 Docusate Sodium (Colace Liquid Cup) 200 mg BID NGT Last administered on 09/08/18 08:39; Admin Dose 200 MG; Start 09/04/18 at 21:00 Polyethylene Glycol (Miralax) 17 gm DAILY GTB Last administered on 09/08/18 08:40; Admin Dose 17 GM; Start 09/05/18 at 10:30 Quetiapine Fumarate (Seroquel) 25 mg BID GTB Last administered on 09/09/18 08:21; Admin Dose 25 MG; Start 09/05/18 at 21:00 Tigecycline 50 mg/ Sodium Chloride 100 ml @ 200 mls/hr Q12 IVPB Last administered on 09/09/18 08:32; Admin Dose 200 MLS/HR; Start 09/05/18 at 23:00 Ceftazidime 50 ml @ 100 mls/hr Q24H IVPB Last administered on 09/09/18 06:02; Admin Dose 100 MLS/HR; Start 09/07/18 at 06:00 Famotidine (Pepcid) 20 mg DAILY GTB Last administered on 09/09/18 08:21; Admin Dose 20 MG; Start 09/07/18 at 09:00 Heparin Sodium (Porcine) (Heparin (5000 Units/1ml)) 5,000 unit Q12 SC Last administered on 09/09/18 08:29; Admin Dose 5,000 UNIT; Start 09/06/18 at 21:00 IV Flush (NS 10 ml) 10 ml PRN PRN IV IV PROTOCOL; Start 09/06/18 at 17:30 Albumin Human 100 ml @ 100 mls/hr DURING DIALYSIS PRN IV BLOOD PRESSURE SUPPORT Last administered on 09/07/18 18:04; Admin Dose 100 MLS/HR; Start 09/07/18 at 09:30 Norepinephrine 250 ml @ 1.875 mls/ hr TITRATE IV ; Start 09/07/18 at 12:30 Dextrose/Sodium Chloride 1,000 ml @ 60 mls/hr [id number] IV Last administered on 09/09/18 03:55; Admin Dose 60 MLS/HR; Start 09/07/18 at 18:00 Albuterol (Ventolin Hfa) 4 puff Q6H RESP THERAPY INH Last administered on 09/09/18 08:02; Admin Dose 4 PUFF; Start 09/08/18 at 09:00 Ipratropium [place] (Atrovent Hfa) 4 puff Q6HWA RESP THERAPY INH Last administered on 09/09/18 08:02; Admin Dose 4 PUFF; Start 09/08/18 at 09:00 Metoclopramide HCl (Reglan) 10 mg Q6H IV Last administered on 09/09/18 06:02; Admin Dose 10 MG; Start 09/08/18 at 12:00 Heparin Sodium (Porcine) (Heparin (1000 Units/ml)) 3,100 unit PRN CATHETER Last administered on 09/08/18 16:57; Admin Dose 3,100 UNIT; Start 09/08/18 at 14:00 Metronidazole 100 ml @ 100 mls/hr Q8 IVPB ; Start 09/09/18 at 14:00 SARAH HUNTER MD Sep 09, 2018 11:57
[2018-09-09] MEDS: SCOPOLAMINE 1.5 MG PATCH TRANSDERM SCH (12:08)
[2018-09-09] MEDS: metroNIDAZOLE 500 MG/NS (PMX) 100 ML IVPB SCH ×2 (14:00→21:26)
--- NOTE | 2018-09-09 14:19 | PN ---
Date/Time of Note Date/Time of Note DATE: 09/09/18 TIME: 14:16 Assessment/Plan Lines/Catheters IV Catheter Type (from Nrsg): Nikko cath Santiago in Place (from Nrsg): Yes Assessment/Plan Assessment/Plan Discussed small bowel follow-through with the radiologist. There is no extravasation of contrast. There is no evidence of bowel obstruction as contrast makes it through the colon. The PEG was removed by GI today. There is still persistent drainage from the PEG tube site which is nonbilious. Concerned that tube feeds were possibly intraperitoneal. As of now, there are no peritoneal findings and patient is stable. May need CT with possible IR drainage if clinical condition worsens per Subjective 24 Hr Interval Summary Subjective hx not possible: pt critical, other (More responsive today. Responding to commands.) Feeding: NPO Pain Control: well controlled Exam/Review of Systems Vital Signs Vitals Vital Signs Date Temp Pulse Resp B/P (MAP) Pulse Ox O2 O2 Flow FiO2 Time Delivery Rate 09/09/18 117 28 116/68 95 Mechanical 13:00 (84) Ventilator 09/09/18 98.8 12:00 09/09/18 45 11:33 09/07/18 10.0 12:00 Intake and Output 09/08/18 09/08/18 09/09/18 1515:00 23:00 07:00 IntakeIntake Total 640 ml 460 ml 480 ml OutputOutput Total 3100 ml 1050 ml BalanceBalance 640 ml -2640 ml -570 ml Exam Constitutional: non-verbal, obese Respiratory: diminished breath sounds Cardiovascular: regular rate and rhythm Gastrointestinal: soft, other (Minimal tenderness, ostomy applied to PEG site which is draining pale white contents) Results Result Diagram: 09/09/18 0430 09/09/18 0430 CHRIS BARCENAS MD Sep 09, 2018 14:19
--- NOTE | 2018-09-09 14:32 | CONS ---
Assessment/Plan Assessment/Plan Hospital Course (Demo Recall) Sinus tachycardia: Corresponds with febrile episodes. LVEF is hyperdynamic. Now better with resolution of fevers Acute renal failure: started on HD Acute on chronic respiratory failure: s/p tracheostomy this admission Acinetobacter PNA SBO Morbid obesity -antibiotics -IVF -will follow PRN Consultation Date/Type/Reason Admit Date/Time Aug 08, 2018 at 17:18 Initial Consult Date 09/06/18 Type of Consult Cardiology Requesting Provider: TATI CARDOZA Date/Time of Note DATE: 09/09/18 TIME: 14:31 24 HR Interval Summary Free Text/Dictation G tube pulled out. Still on HD, no urine output. Sinus tachy 100-110s Exam/Review of Systems Exam Vitals Vital Signs Date Temp Pulse Resp B/P (MAP) Pulse Ox O2 O2 Flow FiO2 Time Delivery Rate 09/09/18 117 28 116/68 95 Mechanical 13:00 (84) Ventilator 09/09/18 98.8 12:00 09/09/18 45 11:33 09/07/18 10.0 12:00 Intake and Output 09/08/18 09/08/18 09/09/18 1414:59 22:59 06:59 IntakeIntake Total 640 ml 460 ml 480 ml OutputOutput Total 3100 ml 1050 ml BalanceBalance 640 ml -2640 ml -570 ml Constitutional: No alert Neck: No jvd (unable to assess) Respiratory: diminished breath sounds; No clear to auscultation Cardiovascular: No regular rate and rhythm (tachycardic), No edema, No systolic murmur Gastrointestinal: soft, distended Neurological: No nl mental status, No nl speech Results Result Diagram: 09/09/18 0430 09/09/18 0430 Results 24hrs Laboratory Tests Test 09/09/18 04:30 White Blood Count 29.1 H Red Blood Count 4.24 L Hemoglobin 10.0 L Hematocrit 34.6 L Mean Corpuscular Volume 81.6 L Mean Corpuscular Hemoglobin 23.6 L Mean Corpuscular Hemoglobin Concent 28.9 L Red Cell Distribution Width 21.7 H Platelet Count 274 Mean Platelet Volume 10.3 Immature Granulocytes % 4.400 H Neutrophils % Segmented Neutrophils % (Manual) 78 H Band Neutrophils % (Manual) 9 H Lymphocytes % Lymphocytes % (Manual) 7 L Monocytes % Monocytes % (Manual) 4 Eosinophils % Basophils % Myelocytes % (Manual) 1 H Plasma Cells % (manual) 1 Nucleated Red Blood Cells % 1 H Immature Granulocytes # 1.280 H Neutrophils # Neutrophils # (Manual) 23.5 H Band Neutrophils # 2.6 H Lymphocytes (Manual) 2.0 Lymphocytes # Monocytes # Monocytes # (Manual) 1.1 H Eosinophils # Basophils # Myelocytes # 0.2 H Plasma Cells # (manual) 0.2 H Nucleated Red Blood Cells # Toxic Granulation 1+ Platelet Estimate NORMAL Giant Platelets 1 H Platelet Morphology Comment @See below Polychromasia 2+ Hypochromasia 2+ Poikilocytosis 1+ Anisocytosis 1+ Microcytosis 1+ Sodium Level 136 Potassium Level 4.7 Chloride Level 95 L Carbon Dioxide Level 21 Anion Gap 20 H Blood Urea Nitrogen 105 H Creatinine 4.97 H Est Glomerular Filtrat Rate mL/min 14 L Glucose Level 128 Calcium Level 10.4 H Total Bilirubin 1.5 H Direct Bilirubin 1.30 #H Indirect Bilirubin 0.2 Aspartate Amino Transf (AST/SGOT) 29 Alanine Aminotransferase (ALT/SGPT) 36 Alkaline Phosphatase 127 H Total Protein 6.5 Albumin 2.9 L Globulin 3.60 H Albumin/Globulin Ratio 0.80 Medications Medication Current Medications IV Flush (NS 3 ml) 3 ml PER PROTOCOL IV ; Start 08/08/18 at 17:30 Ondansetron HCl (Zofran Inj) 4 mg Q6H PRN IV NAUSEA; Start 08/08/18 at 17:30 Midazolam HCl 50 ml @ 1 mls/hr TITRATE IV Last administered on 08/25/18at 11:49; Admin Dose 4 MLS/HR; Start 08/13/18 at 08:30 Naphazoline HCl (Clear Eyes / Naphcon) 2 drop QID BOTH EYES Last administered on 09/09/18at 12:09; Admin Dose 2 DROP; Start 08/16/18 at 18:14 Acetaminophen (Tylenol Liquid) 650 mg Q6H PRN NGT MILD PAIN(1-3)OR ELEVATED TEMP Last administered on 09/07/18at 00:16; Admin Dose 650 MG; Start 08/17/18 at 00:57 Lorazepam (Ativan) 1 mg Q6H PRN IV AGITATION Last administered on 09/08/18at 23:40; Admin Dose 1 MG; Start 08/28/18 at 02:30 Morphine Sulfate (morphine) 2 mg Q2H PRN IV SEVERE PAIN LEVEL 7-10 Last administered on 09/05/18 17:08; Admin Dose 2 MG; Start 08/28/18 at 09:00 Scopolamine (Transderm-Scop) 1 patch Q72H TRANSDERM Last administered on 09/09/18 12:08; Admin Dose 1 PATCH; Start 08/31/18 at 11:30 Docusate Sodium (Colace Liquid Cup) 200 mg BID NGT Last administered on 09/08/18 08:39; Admin Dose 200 MG; Start 09/04/18 at 21:00 Polyethylene Glycol (Miralax) 17 gm DAILY GTB Last administered on 09/08/18 08:40; Admin Dose 17 GM; Start 09/05/18 at 10:30 Quetiapine Fumarate (Seroquel) 25 mg BID GTB Last administered on 09/09/18 08:21; Admin Dose 25 MG; Start 09/05/18 at 21:00 Tigecycline 50 mg/ Sodium Chloride 100 ml @ 200 mls/hr Q12 IVPB Last administered on 09/09/18 08:32; Admin Dose 200 MLS/HR; Start 09/05/18 at 23:00 Ceftazidime 50 ml @ 100 mls/hr Q24H IVPB Last administered on 09/09/18 06:02; Admin Dose 100 MLS/HR; Start 09/07/18 at 06:00 Famotidine (Pepcid) 20 mg DAILY GTB Last administered on 09/09/18 08:21; Admin Dose 20 MG; Start 09/07/18 at 09:00 Heparin Sodium (Porcine) (Heparin (5000 Units/1ml)) 5,000 unit Q12 SC Last administered on 09/09/18 08:29; Admin Dose 5,000 UNIT; Start 09/06/18 at 21:00 IV Flush (NS 10 ml) 10 ml PRN PRN IV IV PROTOCOL; Start 09/06/18 at 17:30 Albumin Human 100 ml @ 100 mls/hr DURING DIALYSIS PRN IV BLOOD PRESSURE SUPPORT Last administered on 09/07/18 18:04; Admin Dose 100 MLS/HR; Start 09/07/18 at 09:30 Norepinephrine 250 ml @ 1.875 mls/ hr TITRATE IV ; Start 09/07/18 at 12:30 Dextrose/Sodium Chloride 1,000 ml @ 60 mls/hr [id number] IV Last administered on 09/09/18 03:55; Admin Dose 60 MLS/HR; Start 09/07/18 at 18:00 Albuterol (Ventolin Hfa) 4 puff Q6H RESP THERAPY INH Last administered on 09/09/18 13:28; Admin Dose 4 PUFF; Start 09/08/18 at 09:00 Ipratropium [place] (Atrovent Hfa) 4 puff Q6HWA RESP THERAPY INH Last administered on 09/09/18 13:28; Admin Dose 4 PUFF; Start 09/08/18 at 09:00 Metoclopramide HCl (Reglan) 10 mg Q6H IV Last administered on 09/09/18 12:08; Admin Dose 10 MG; Start 09/08/18 at 12:00 Heparin Sodium (Porcine) (Heparin (1000 Units/ml)) 3,100 unit PRN CATHETER Last administered on 09/08/18at 16:57; Admin Dose 3,100 UNIT; Start 09/08/18 at 14:00 Metronidazole 100 ml @ 100 mls/hr Q8 IVPB ; Start 09/09/18 at 14:00 KRISTA ROCHA Sep 09, 2018 14:32
--- NOTE | 2018-09-09 15:12 | PN ---
Date/Time of Note Date/Time of Note DATE: 09/09/18 TIME: 15:12 Assessment/Plan Lines/Catheters IV Catheter Type (from Nrsg): Nikko cath Santiago in Place (from Nrsg): Yes Subjective 24 Hr Interval Summary Constitutional: improved Pain Control: mild Exam/Review of Systems Vital Signs Vitals Vital Signs Date Temp Pulse Resp B/P (MAP) Pulse Ox O2 O2 Flow FiO2 Time Delivery Rate 09/09/18 117 28 116/68 95 Mechanical 13:00 (84) Ventilator 09/09/18 98.8 12:00 09/09/18 45 11:33 09/07/18 10.0 12:00 Intake and Output 09/08/18 09/08/18 09/09/18 1414:59 22:59 06:59 IntakeIntake Total 640 ml 460 ml 480 ml OutputOutput Total 3100 ml 1050 ml BalanceBalance 640 ml -2640 ml -570 ml Exam Eyes: nl conjunctiva, EOMI, nl lids, nl sclera ENMT: nl external ears & nose, nl lips & teeth, nl nasal mucosa & septum, mucosa pink and moist Neck: supple, non-tender Respiratory: clear to auscultation, normal air movement Cardiovascular: regular rate and rhythm, nl pulses Gastrointestinal: soft, nl liver, spleen, non-tender Musculoskeletal: nl extremities to inspection, nl gait and stance Results Result Diagram: 09/09/1842909/09/18429 TIMMY DALAL MD Sep 09, 2018 15:12
--- NOTE | 2018-09-09 16:15 | PN ---
Date/Time of Note Date/Time of Note DATE: 09/09/18 TIME: 16:05 Assessment/Plan VTE Prophylaxis Risk score (from Nsg)>0 risk: 9 SCD applied (from Nsg): Yes Pharmacological prophylaxis: heparin Lines/Catheters IV Catheter Type (from Nrsg): Nikko cath Urinary Cath still in place: Yes Reason Cath still needed: other (indicate) (morbidly obese) Assessment/Plan Assessment/Plan 32yo Morbidly obese man who had presented with shortness of breath currently managed as follows: 1. Hypoxic/hypercapnic respiratory failure: -Secondary to ANDREW, exacerbated by pneumonia, underlying COPD with blebs now seen on CXR -Intubated , status post trach 08/24 -Currently off the ventilator, remains in ICU due to requiring frequent suctioning and copious secretions -steroids added 09/05/18 -back on vent 09/07/18 2. Encephalopathy, toxic metabolic, r/o hypoxic ischemic -patient remains confused intermittently, may have suffered a brain insult, unable to get MRI or CT 08/19 weight -appreciate neurology consult, will follow recs -attempted to cut back on dosing for Seroquel, but patient is still quite confused, Switched to BID dosing 3. Sepsis with Bilateral pneumonia -Cultures grew MDR Acinetobacter, now on inhaled colistin -CXR shows improvement in infiltrates, repeat blood cultures negative so far, urine and resp cultures pending -LE dopplers negative for DVT 4. Acute renal insufficiency now started on hemodialysis -schaefer was changed to r/o obstruction 09/06/18 -1st session 09/07/18, -HD per renal 5. Dislodged G tube with iatrogenic fluid pocket of extravasated tube feed. - He has a large pocket of tube feed which is either extravasated in subcutaneous fat or peritoneum. Does not look infected but this nutrient-rich media is at risk for infection. - Dr. Ybarra consulted, but patient would be high risk for surgery. PEG pulled 09/09 - Will cautiously plan to resume tube feeds via NG tube - Consulted radiology for US-guided drainage. 6. Functional dysphagia status post PEG -Secondary to trach 7.. Chronic hypochromic anemia -stable, monitor 8. Severe Obesity -high risk for skin breakdown, -controlled calories while on tube feeds -has lost about 40 pounds so far since admission per nursing 7. Debility and lethargy -PT limited by patient's mental status 8. Hyperbilirubinemia - predominantly direct, alkaline phosphatase is normal -liver USS showed diffuse fatty liver -am labs with hepatitis screen pending 9. Steroid induced leucocytosis -monitor 10. Tachycardia -related to fevers per cardio, appreciate input Plan -remains in ICU for now d/t tenuous status and requiring repeated intervention -back on vent - US-guided fluid drainage, then restart tube feeds via NGt. -Continue HD per renal Prophylaxis : on Heparin tid d/t weight Poor prognosis CRITICAL CARE TIME: >35 mins Result Diagram: 09/09/1842909/09/18 043 Subjective 24 Hr Interval Summary Free Text/Dictation Overnight patient had copious secretions from NG tube and was agitated and tachypneic; now sedated back on vent. He has had copious tubefeed drainage seeping from around the G tube. Dr. Morrissey removed G tube today. Exam/Review of Systems Exam Vitals Vital Signs Date Temp Pulse Resp B/P (MAP) Pulse Ox O2 O2 Flow FiO2 Time Delivery Rate 09/09/18 117 28 116/68 95 Mechanical 13:00 (84) Ventilator 09/09/18 98.8 12:00 09/09/18 45 11:33 09/07/18 10.0 12:00 Intake and Output 09/08/18 09/08/18 09/09/18 1515:00 23:00 07:00 IntakeIntake Total 640 ml 460 ml 480 ml OutputOutput Total 3100 ml 1050 ml BalanceBalance 640 ml -2640 ml -570 ml Exam Gen: Morbidly obese man lying in bed, opens eyes, attempts to speak Neck: Obese, trached HEENT: [place], scleral icterus Card: distant heart sounds Pulm: distant lung sounds. coarse Abd: Morbidly obese, soft, nontender, G-tube in place with copious tubefeed oozing from around it. Ext: Bilateral LE chronic venous stasis changes, no edema, skin discoloration Results Results 24hrs Laboratory Tests Test 09/09/18 04:30 White Blood Count 29.1 H Red Blood Count 4.24 L Hemoglobin 10.0 L Hematocrit 34.6 L Mean Corpuscular Volume 81.6 L Mean Corpuscular Hemoglobin 23.6 L Mean Corpuscular Hemoglobin Concent 28.9 L Red Cell Distribution Width 21.7 H Platelet Count 274 Mean Platelet Volume 10.3 Immature Granulocytes % 4.400 H Neutrophils % Segmented Neutrophils % (Manual) 78 H Band Neutrophils % (Manual) 9 H Lymphocytes % Lymphocytes % (Manual) 7 L Monocytes % Monocytes % (Manual) 4 Eosinophils % Basophils % Myelocytes % (Manual) 1 H Plasma Cells % (manual) 1 Nucleated Red Blood Cells % 1 H Immature Granulocytes # 1.280 H Neutrophils # Neutrophils # (Manual) 23.5 H Band Neutrophils # 2.6 H Lymphocytes (Manual) 2.0 Lymphocytes # Monocytes # Monocytes # (Manual) 1.1 H Eosinophils # Basophils # Myelocytes # 0.2 H Plasma Cells # (manual) 0.2 H Nucleated Red Blood Cells # Toxic Granulation 1+ Platelet Estimate NORMAL Giant Platelets 1 H Platelet Morphology Comment @See below Polychromasia 2+ Hypochromasia 2+ Poikilocytosis 1+ Anisocytosis 1+ Microcytosis 1+ Sodium Level 136 Potassium Level 4.7 Chloride Level 95 L Carbon Dioxide Level 21 Anion Gap 20 H Blood Urea Nitrogen 105 H Creatinine 4.97 H Est Glomerular Filtrat Rate mL/min 14 L Glucose Level 128 Calcium Level 10.4 H Total Bilirubin 1.5 H Direct Bilirubin 1.30 #H Indirect Bilirubin 0.2 Aspartate Amino Transf (AST/SGOT) 29 Alanine Aminotransferase (ALT/SGPT) 36 Alkaline Phosphatase 127 H Total Protein 6.5 Albumin 2.9 L Globulin 3.60 H Albumin/Globulin Ratio 0.80 Medications Medication Current Medications IV Flush (NS 3 ml) 3 ml PER PROTOCOL IV ; Start 08/08/18 at 17:30 Ondansetron HCl (Zofran Inj) 4 mg Q6H PRN IV NAUSEA; Start 08/08/18 at 17:30 Midazolam HCl 50 ml @ 1 mls/hr TITRATE IV Last administered on 08/25/18at 11:49; Admin Dose 4 MLS/HR; Start 08/13/18 at 08:30 Naphazoline HCl (Clear Eyes / Naphcon) 2 drop QID BOTH EYES Last administered on 09/09/18at 12:09; Admin Dose 2 DROP; Start 08/16/18 at 18:14 Acetaminophen (Tylenol Liquid) 650 mg Q6H PRN NGT MILD PAIN(1-3)OR ELEVATED TEMP Last administered on 09/07/18at 00:16; Admin Dose 650 MG; Start 08/17/18 at 00:57 Lorazepam (Ativan) 1 mg Q6H PRN IV AGITATION Last administered on 09/08/18 23:40; Admin Dose 1 MG; Start 08/28/18 at 02:30 Morphine Sulfate (morphine) 2 mg Q2H PRN IV SEVERE PAIN LEVEL 7-10 Last administered on 09/05/18 17:08; Admin Dose 2 MG; Start 08/28/18 at 09:00 Scopolamine (Transderm-Scop) 1 patch Q72H TRANSDERM Last administered on 09/09/18 12:08; Admin Dose 1 PATCH; Start 08/31/18 at 11:30 Docusate Sodium (Colace Liquid Cup) 200 mg BID NGT Last administered on 09/08/18 08:39; Admin Dose 200 MG; Start 09/04/18 at 21:00 Polyethylene Glycol (Miralax) 17 gm DAILY GTB Last administered on 09/08/18 08:40; Admin Dose 17 GM; Start 09/05/18 at 10:30 Quetiapine Fumarate (Seroquel) 25 mg BID GTB Last administered on 09/09/18 08:21; Admin Dose 25 MG; Start 09/05/18 at 21:00 Tigecycline 50 mg/ Sodium Chloride 100 ml @ 200 mls/hr Q12 IVPB Last administered on 09/09/18 08:32; Admin Dose 200 MLS/HR; Start 09/05/18 at 23:00 Ceftazidime 50 ml @ 100 mls/hr Q24H IVPB Last administered on 09/09/18 06:02; Admin Dose 100 MLS/HR; Start 09/07/18 at 06:00 Famotidine (Pepcid) 20 mg DAILY GTB Last administered on 09/09/18 08:21; Admin Dose 20 MG; Start 09/07/18 at 09:00 Heparin Sodium (Porcine) (Heparin (5000 Units/1ml)) 5,000 unit Q12 SC Last administered on 09/09/18 08:29; Admin Dose 5,000 UNIT; Start 09/06/18 at 21:00 IV Flush (NS 10 ml) 10 ml PRN PRN IV IV PROTOCOL; Start 09/06/18 at 17:30 Albumin Human 100 ml @ 100 mls/hr DURING DIALYSIS PRN IV BLOOD PRESSURE SUPPORT Last administered on 09/07/18 18:04; Admin Dose 100 MLS/HR; Start 09/07/18 at 09:30 Norepinephrine 250 ml @ 1.875 mls/ hr TITRATE IV ; Start 09/07/18 at 12:30 Dextrose/Sodium Chloride 1,000 ml @ 60 mls/hr [id number] IV Last administered on 09/09/18 03:55; Admin Dose 60 MLS/HR; Start 09/07/18 at 18:00 Albuterol (Ventolin Hfa) 4 puff Q6H RESP THERAPY INH Last administered on 09/09/18 13:28; Admin Dose 4 PUFF; Start 09/08/18 at 09:00 Ipratropium [place] (Atrovent Hfa) 4 puff Q6HWA RESP THERAPY INH Last administered on 09/09/18 13:28; Admin Dose 4 PUFF; Start 09/08/18 at 09:00 Metoclopramide HCl (Reglan) 10 mg Q6H IV Last administered on 09/09/18 12:08; Admin Dose 10 MG; Start 09/08/18 at 12:00 Heparin Sodium (Porcine) (Heparin (1000 Units/ml)) 3,100 unit PRN CATHETER Last administered on 09/08/18 16:57; Admin Dose 3,100 UNIT; Start 09/08/18 at 14:00 Metronidazole 100 ml @ 100 mls/hr Q8 IVPB ; Start 09/09/18 at 14:00 ELIANE PEARSON MD Sep 09, 2018 16:15
--- NOTE | 2018-09-09 16:22 | CONS ---
Assessment/Plan Assessment/Plan Assessment/Plan (Daily) 1. Acute on chronic hypoxemic and hypercapnic respiratory failure, failed multiple weaning trials status post tracheostomy. Significant secretions, likley due to combination of obesity hypoventillation syndrome and disastolic chf 2. MARTINE: now hd dependent. bun remains elevated and plan hd again today. am labs 3. Morbid obesity: no change 4. Leukocytosis With ongoing fevers and persistent diarrhea.abx per pcp 5. Small bowel obstruction with severe sepsis: surgery following 6- Anemia in esrd: epogen if hb < 10 Consultation Date/Type/Reason Admit Date/Time Aug 08, 2018 at 17:18 Initial Consult Date 09/06/18 Requesting Provider: TATI CARDOZA Date/Time of Note DATE: 09/09/18 TIME: 16:18 24 HR Interval Summary Free Text/Dictation eyes open. responsive. on vent Exam/Review of Systems Exam Vitals Vital Signs Date Temp Pulse Resp B/P (MAP) Pulse Ox O2 O2 Flow FiO2 Time Delivery Rate 09/09/18 117 28 116/68 95 Mechanical 13:00 (84) Ventilator 09/09/18 98.8 12:00 09/09/18 45 11:33 09/07/18 10.0 12:00 Intake and Output 09/08/18 09/08/18 09/09/18 1515:00 23:00 07:00 IntakeIntake Total 640 ml 460 ml 480 ml OutputOutput Total 3100 ml 1050 ml BalanceBalance 640 ml -2640 ml -570 ml Constitutional: alert Head: normocephalic Neck: supple, non-tender Respiratory: diminished breath sounds Cardiovascular: regular rate and rhythm, edema (1+) Gastrointestinal: soft (obese) Results Result Diagram: 09/09/18 04309/09/18 0430 Results 24hrs Laboratory Tests Test 09/09/18 04:30 White Blood Count 29.1 H Red Blood Count 4.24 L Hemoglobin 10.0 L Hematocrit 34.6 L Mean Corpuscular Volume 81.6 L Mean Corpuscular Hemoglobin 23.6 L Mean Corpuscular Hemoglobin Concent 28.9 L Red Cell Distribution Width 21.7 H Platelet Count 274 Mean Platelet Volume 10.3 Immature Granulocytes % 4.400 H Neutrophils % Segmented Neutrophils % (Manual) 78 H Band Neutrophils % (Manual) 9 H Lymphocytes % Lymphocytes % (Manual) 7 L Monocytes % Monocytes % (Manual) 4 Eosinophils % Basophils % Myelocytes % (Manual) 1 H Plasma Cells % (manual) 1 Nucleated Red Blood Cells % 1 H Immature Granulocytes # 1.280 H Neutrophils # Neutrophils # (Manual) 23.5 H Band Neutrophils # 2.6 H Lymphocytes (Manual) 2.0 Lymphocytes # Monocytes # Monocytes # (Manual) 1.1 H Eosinophils # Basophils # Myelocytes # 0.2 H Plasma Cells # (manual) 0.2 H Nucleated Red Blood Cells # Toxic Granulation 1+ Platelet Estimate NORMAL Giant Platelets 1 H Platelet Morphology Comment @See below Polychromasia 2+ Hypochromasia 2+ Poikilocytosis 1+ Anisocytosis 1+ Microcytosis 1+ Sodium Level 136 Potassium Level 4.7 Chloride Level 95 L Carbon Dioxide Level 21 Anion Gap 20 H Blood Urea Nitrogen 105 H Creatinine 4.97 H Est Glomerular Filtrat Rate mL/min 14 L Glucose Level 128 Calcium Level 10.4 H Total Bilirubin 1.5 H Direct Bilirubin 1.30 #H Indirect Bilirubin 0.2 Aspartate Amino Transf (AST/SGOT) 29 Alanine Aminotransferase (ALT/SGPT) 36 Alkaline Phosphatase 127 H Total Protein 6.5 Albumin 2.9 L Globulin 3.60 H Albumin/Globulin Ratio 0.80 Medications Medication Current Medications IV Flush (NS 3 ml) 3 ml PER PROTOCOL IV ; Start 08/08/18 at 17:30 Ondansetron HCl (Zofran Inj) 4 mg Q6H PRN IV NAUSEA; Start 08/08/18 at 17:30 Midazolam HCl 50 ml @ 1 mls/hr TITRATE IV Last administered on 08/25/18at 11:49; Admin Dose 4 MLS/HR; Start 08/13/18 at 08:30 Naphazoline HCl (Clear Eyes / Naphcon) 2 drop QID BOTH EYES Last administered on 09/09/18at 12:09; Admin Dose 2 DROP; Start 08/16/18 at 18:14 Acetaminophen (Tylenol Liquid) 650 mg Q6H PRN NGT MILD PAIN(1-3)OR ELEVATED TEMP Last administered on 09/07/18 00:16; Admin Dose 650 MG; Start 08/17/18 at 00:57 Lorazepam (Ativan) 1 mg Q6H PRN IV AGITATION Last administered on 09/08/18at 23:40; Admin Dose 1 MG; Start 08/28/18 at 02:30 Morphine Sulfate (morphine) 2 mg Q2H PRN IV SEVERE PAIN LEVEL 7-10 Last administered on 09/05/18 17:08; Admin Dose 2 MG; Start 08/28/18 at 09:00 Scopolamine (Transderm-Scop) 1 patch Q72H TRANSDERM Last administered on 09/09/18 12:08; Admin Dose 1 PATCH; Start 08/31/18 at 11:30 Docusate Sodium (Colace Liquid Cup) 200 mg BID NGT Last administered on 09/08/18 08:39; Admin Dose 200 MG; Start 09/04/18 at 21:00 Polyethylene Glycol (Miralax) 17 gm DAILY GTB Last administered on 09/08/18 08:40; Admin Dose 17 GM; Start 09/05/18 at 10:30 Quetiapine Fumarate (Seroquel) 25 mg BID GTB Last administered on 09/09/18 08:21; Admin Dose 25 MG; Start 09/05/18 at 21:00 Tigecycline 50 mg/ Sodium Chloride 100 ml @ 200 mls/hr Q12 IVPB Last administered on 09/09/18 08:32; Admin Dose 200 MLS/HR; Start 09/05/18 at 23:00 Ceftazidime 50 ml @ 100 mls/hr Q24H IVPB Last administered on 09/09/18 06:02; Admin Dose 100 MLS/HR; Start 09/07/18 at 06:00 Famotidine (Pepcid) 20 mg DAILY GTB Last administered on 09/09/18 08:21; Admin Dose 20 MG; Start 09/07/18 at 09:00 Heparin Sodium (Porcine) (Heparin (5000 Units/1ml)) 5,000 unit Q12 SC Last administered on 09/09/18 08:29; Admin Dose 5,000 UNIT; Start 09/06/18 at 21:00 IV Flush (NS 10 ml) 10 ml PRN PRN IV IV PROTOCOL; Start 09/06/18 at 17:30 Albumin Human 100 ml @ 100 mls/hr DURING DIALYSIS PRN IV BLOOD PRESSURE SUPPORT Last administered on 09/07/18 18:04; Admin Dose 100 MLS/HR; Start 09/07/18 at 09:30 Norepinephrine 250 ml @ 1.875 mls/ hr TITRATE IV ; Start 09/07/18 at 12:30 Dextrose/Sodium Chloride 1,000 ml @ 60 mls/hr [id number] IV Last administered on 09/09/18 03:55; Admin Dose 60 MLS/HR; Start 09/07/18 at 18:00 Albuterol (Ventolin Hfa) 4 puff Q6H RESP THERAPY INH Last administered on 09/09/18 13:28; Admin Dose 4 PUFF; Start 09/08/18 at 09:00 Ipratropium [place] (Atrovent Hfa) 4 puff Q6HWA RESP THERAPY INH Last administered on 09/09/18 13:28; Admin Dose 4 PUFF; Start 09/08/18 at 09:00 Metoclopramide HCl (Reglan) 10 mg Q6H IV Last administered on 09/09/18 12:08; Admin Dose 10 MG; Start 09/08/18 at 12:00 Heparin Sodium (Porcine) (Heparin (1000 Units/ml)) 3,100 unit PRN CATHETER Last administered on 09/08/18 16:57; Admin Dose 3,100 UNIT; Start 09/08/18 at 14:00 Metronidazole 100 ml @ 100 mls/hr Q8 IVPB ; Start 09/09/18 at 14:00 CHARLEE IZQUIERDO MD Sep 09, 2018 16:22
[2018-09-09] MEDS: HEPARIN 1000 UNITS/ML 10 ML INJ CATHETER SCH (19:35)
[2018-09-09] MEDS: BALSAM PERU/CASTOR OIL 60 GM TUBE TOP SCH (21:25)
--- NOTE | 2018-09-09 21:51 | CONS ---
Assessment/Plan Assessment/Plan Hospital Course (Demo Recall) ID PROGRESS NOTE CURRENT ABX: DAY # 32=> FORTAZ #5+ TYGACIL #5 + Flagyl 09/04 Zyvox + Colistin Diflucan -> DC'd s/p Vanco IV/Zosyn 24H INTERVAL SUMMARY * Septic shock, low grade temps, WBC elevated today == now back on AC Vent * WBC elevated in part due to ABX holiday and partial IV STEROIDS DEMARGINATION * MARTINE partially due to Colimycin for ACBA MDRO pulmonary sepsis = HD PLAN INITIATED * NEW PICC Placed 09/06/18 * FC changed 09/06/18 * 09/09/18 ABD XR BOWEL FOLLOW THRU: 1. No evidence of bowel obstruction. Transition time of the contrast reaching to the colon is less than 60 minutes. 2. No evidence of extravasation of the contrast from the stomach. * 09/05/19 ABD XR revealed: Findings of small bowel obstruction with a possible mass, fluid collection, or hematoma in the left abdomen. DIAGNOSTIC IMAGING * 09/06/18 CXR: IMPRESSION: * 1. Tracheostomy and PICC line in appropriate position. * 2. Similar bilateral perihilar interstitial opacities representing pulmonary edema or infection. * 3. Small left pleural effusion * 09/05/18 liver US: IMPRESSION:Diffuse fatty infiltration of an enlarged liver.Pancreas not well visualized. If characterization of this structure is needed repeat exam or CT/MRI is recommended. * 09/05/18 ABD XR: IMPRESSION: Findings of small bowel obstruction with a possible mass, fluid collection, or hematoma in the left abdomen. * 09/05/18 CXR: IMPRESSION: * 1. Persistent mild cardiomegaly with the pulmonary vasculature upper normal. * 2. Significant improvement with regards to the diffuse interstitial infiltrates with foci of discoid atelectasis seen within the mid and lower lung zones. Blebs are seen to project in the right mid lung zone now more conspicuous. * 3. Possible small left pleural fluid accumulation, unchanged. MICRO/OTHER * 09/05/18 Urine Cx (-) * 09/05/18 BCx(-) * 08/30/18 BCx (-) * 08/29/18 PICC Tip (-) * 08/29/18 BCx (-) * 08/29/18 RESP CX: RESPIRATORY CULTURE Final Organism 1 ACINETOBACTER BAUMANNII QUANTITY 1+ A.BAUMANNI A.BAUMANNI M.I.C. RX M.I.C. RX --------- --- --------- --- AMIKACIN R CEFEPIME >=64 R CEFTAZIDIME 16 I CIPROFLOXACIN >=4 R GENTAMICIN >=16 R LEVOFLOXACIN >=8 R MEROPENEM >32 R TOBRAMYCIN >=16 R TRIMETHOPRIM/SULFAMETHOXAZOLE >=320 R PIPERACILLIN/TAZOBACTAM >=128 R * 08/26/18 (-)C.Diff * 08/26/18 BCX (+) Cons BLOOD CULTURE Final BCULT GRAM BOTTLE 1 Gram positive cocci in clusters 1 of 2 bottles . seen on gram stain of the broth Organism 1 COAGULASE NEGATIVE STAPH * 08/16/18 Respiratory Cx (+)ACBA = MDRO * 08/09/18 BRONCH (-) * 08/08/18 (-)MRSA, (-)Influenza A/B, (-)UTI * 08/08/18 BCx (-) * PHYSICAL EXAMINATION: GENERAL: Non-communicative, super morbid obese M, orally intubated, sedated on the Vent, looks comfortable, NAD HEENT: AT, NC, anicteric NECK: Supple, (+)Trach in place CHEST: Equal chest rise bilaterally, without dyspnea on observation = Vented HEART: Pulse RRR ABDOMEN: Soft / NT EXTREMITIES: Warm, dry SKIN: No rash, no diaphoresis, multiple Tattoos ID ASSESSMENT 32 yo Super Morbid Obese M admit with: 1. Sepsis w/Fevers - MULTIFACTORIAL ETIOLOGIES * => s/p FEVERS 09/05/18 w/ABX Holiday Trial NOW RESOLVED * LEUKOCYTOSIS =partial iv steroids demargination * 09/05/18 Urine Cx (-) * 09/05/18 BCx(-) * HCAP superimposed on probable ASP PNA * S/P PICC Line Sepsis -- BCx (+) opportunistic CoNS -- PICC Line DC'd 08/29/18 2. Leukocytosis - partial IV steroids demargination 3. PNA -- ASP PNA risk factors * 08/09/18 BRONCH (-) * 08/29/18 RESP CX: RESPIRATORY CULTURE Final Organism 1 ACINETOBACTER BAUMANNII = MDRO 4. Acute hypoxic respiratory failure => s/p Trach placement 5. Obstructive Sleep Apnea/Obesity hypoventilation syndrome 6. MARTINE partially due to Colimycin for ACBA MDRO pulmonary sepsis = Colimycin DC'd 09/04/18 7. Fatty Liver w/abnormal ABX XR ? Mass vs Hematoma * 09/05/18 ABD XR: IMPRESSION: Findings of small bowel obstruction with a possible mass, fluid collection, or hematoma in the left abdomen. 8. Ileus vs SBO 9. 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 Diarrhea = ABX associated w/(-)C.Diff toxin (-)MRSA Nares ABX ALLERGIES: KNDA INVASIVES: Trach, PEG, NEW PICC (09/06/18), FC changed 09/06/18 CURRENT ABX: DAY 32=> FORTAZ #5+ TYGACIL #5 + Flagyl 09/04 Zyvox + Colistin Diflucan -> DC'd s/p Vanco IV/Zosyn ID RECOMMENDATIONS/PLAN: 1. Continue current ABX 2. IV steroids tapering 2. PLAN IS FOR RENAL RECOVERY = AVOID NEPHROTOXIC ABX Consultation Date/Type/Reason Admit Date/Time Aug 08, 2018 at 17:18 Initial Consult Date 08/09/18 Requesting Provider: TATI CARDOZA Date/Time of Note DATE: 09/09/18 TIME: 21:49 Exam/Review of Systems Exam Vitals Vital Signs Date Temp Pulse Resp B/P (MAP) Pulse Ox O2 O2 Flow FiO2 Time Delivery Rate 09/09/18 114 24 104/63 99 21:15 (77) 09/09/18 Mechanical 21:00 Ventilator 09/09/18 45 20:00 09/09/18 99.6 16:00 09/07/18 10.0 12:00 Intake and Output 09/08/18 09/08/18 09/09/18 1414:59 22:59 06:59 IntakeIntake Total 640 ml 460 ml 480 ml OutputOutput Total 3100 ml 1050 ml BalanceBalance 640 ml -2640 ml -570 ml Results Result Diagram: 09/09/18 0430 09/09/18 0430 Results 24hrs Laboratory Tests Test 09/09/18 04:30 White Blood Count 29.1 H Red Blood Count 4.24 L Hemoglobin 10.0 L Hematocrit 34.6 L Mean Corpuscular Volume 81.6 L Mean Corpuscular Hemoglobin 23.6 L Mean Corpuscular Hemoglobin Concent 28.9 L Red Cell Distribution Width 21.7 H Platelet Count 274 Mean Platelet Volume 10.3 Immature Granulocytes % 4.400 H Neutrophils % Segmented Neutrophils % (Manual) 78 H Band Neutrophils % (Manual) 9 H Lymphocytes % Lymphocytes % (Manual) 7 L Monocytes % Monocytes % (Manual) 4 Eosinophils % Basophils % Myelocytes % (Manual) 1 H Plasma Cells % (manual) 1 Nucleated Red Blood Cells % 1 H Immature Granulocytes # 1.280 H Neutrophils # Neutrophils # (Manual) 23.5 H Band Neutrophils # 2.6 H Lymphocytes (Manual) 2.0 Lymphocytes # Monocytes # Monocytes # (Manual) 1.1 H Eosinophils # Basophils # Myelocytes # 0.2 H Plasma Cells # (manual) 0.2 H Nucleated Red Blood Cells # Toxic Granulation 1+ Platelet Estimate NORMAL Giant Platelets 1 H Platelet Morphology Comment @See below Polychromasia 2+ Hypochromasia 2+ Poikilocytosis 1+ Anisocytosis 1+ Microcytosis 1+ Sodium Level 136 Potassium Level 4.7 Chloride Level 95 L Carbon Dioxide Level 21 Anion Gap 20 H Blood Urea Nitrogen 105 H Creatinine 4.97 H Est Glomerular Filtrat Rate mL/min 14 L Glucose Level 128 Calcium Level 10.4 H Total Bilirubin 1.5 H Direct Bilirubin 1.30 #H Indirect Bilirubin 0.2 Aspartate Amino Transf (AST/SGOT) 29 Alanine Aminotransferase (ALT/SGPT) 36 Alkaline Phosphatase 127 H Total Protein 6.5 Albumin 2.9 L Globulin 3.60 H Albumin/Globulin Ratio 0.80 Medications Medication Current Medications IV Flush (NS 3 ml) 3 ml PER PROTOCOL IV ; Start 08/08/18 at 17:30 Ondansetron HCl (Zofran Inj) 4 mg Q6H PRN IV NAUSEA; Start 08/08/18 at 17:30 Midazolam HCl 50 ml @ 1 mls/hr TITRATE IV Last administered on 08/25/18 11:49; Admin Dose 4 MLS/HR; Start 08/13/18 at 08:30 Naphazoline HCl (Clear Eyes / Naphcon) 2 drop QID BOTH EYES Last administered on 09/09/18 21:17; Admin Dose 2 DROP; Start 08/16/18 at 18:14 Acetaminophen (Tylenol Liquid) 650 mg Q6H PRN NGT MILD PAIN(1-3)OR ELEVATED TEMP Last administered on 09/07/18 00:16; Admin Dose 650 MG; Start 08/17/18 at 00:57 Lorazepam (Ativan) 1 mg Q6H PRN IV AGITATION Last administered on 09/08/18 23:40; Admin Dose 1 MG; Start 08/28/18 at 02:30 Morphine Sulfate (morphine) 2 mg Q2H PRN IV SEVERE PAIN LEVEL 7-10 Last administered on 09/05/18 17:08; Admin Dose 2 MG; Start 08/28/18 at 09:00 Scopolamine (Transderm-Scop) 1 patch Q72H TRANSDERM Last administered on 09/09/18 12:08; Admin Dose 1 PATCH; Start 08/31/18 at 11:30 Docusate Sodium (Colace Liquid Cup) 200 mg BID NGT Last administered on 09/08/18 08:39; Admin Dose 200 MG; Start 09/04/18 at 21:00 Polyethylene Glycol (Miralax) 17 gm DAILY GTB Last administered on 09/08/18 08:40; Admin Dose 17 GM; Start 09/05/18 at 10:30 Quetiapine Fumarate (Seroquel) 25 mg BID GTB Last administered on 09/09/18 08:21; Admin Dose 25 MG; Start 09/05/18 at 21:00 Tigecycline 50 mg/ Sodium Chloride 100 ml @ 200 mls/hr Q12 IVPB Last administered on 09/09/18 20:32; Admin Dose 200 MLS/HR; Start 09/05/18 at 23:00 Ceftazidime 50 ml @ 100 mls/hr Q24H IVPB Last administered on 09/09/18 06:02; Admin Dose 100 MLS/HR; Start 09/07/18 at 06:00 Famotidine (Pepcid) 20 mg DAILY GTB Last administered on 09/09/18 08:21; Admin Dose 20 MG; Start 09/07/18 at 09:00 Heparin Sodium (Porcine) (Heparin (5000 Units/1ml)) 5,000 unit Q12 SC Last administered on 09/09/18 21:23; Admin Dose 5,000 UNIT; Start 09/06/18 at 21:00 IV Flush (NS 10 ml) 10 ml PRN PRN IV IV PROTOCOL; Start 09/06/18 at 17:30 Albumin Human 100 ml @ 100 mls/hr DURING DIALYSIS PRN IV BLOOD PRESSURE SUPPORT Last administered on 09/07/18 18:04; Admin Dose 100 MLS/HR; Start 09/07/18 at 09:30 Norepinephrine 250 ml @ 1.875 mls/ hr TITRATE IV ; Start 09/07/18 at 12:30 Dextrose/Sodium Chloride 1,000 ml @ 60 mls/hr [id number] IV Last administered on 09/09/18 20:31; Admin Dose 60 MLS/HR; Start 09/07/18 at 18:00 Albuterol (Ventolin Hfa) 4 puff Q6H RESP THERAPY INH Last administered on 09/09/18 20:02; Admin Dose 4 PUFF; Start 09/08/18 at 09:00 Ipratropium [place] (Atrovent Hfa) 4 puff Q6HWA RESP THERAPY INH Last administ ered on 09/09/18 20:02; Admin Dose 4 PUFF; Start 09/08/18 at 09:00 Metoclopramide HCl (Reglan) 10 mg Q6H IV Last administered on 09/09/18 17:56; Admin Dose 10 MG; Start 09/08/18 at 12:00 Heparin Sodium (Porcine) (Heparin (1000 Units/ml)) 3,100 unit PRN CATHETER Last administered on 09/09/18 19:35; Admin Dose 3,100 UNIT; Start 09/08/18 at 14:00 Metronidazole 100 ml @ 100 mls/hr Q8 IVPB Last administered on 2/23/19at 21:26; Admin Dose 100 MLS/HR; Start 09/09/18 at 14:00 GARCÍA JOHNSON NP Sep 09, 2018 21:51
[2018-09-10] VITALS (42 sets, daily range): BP systolic 63–112; BP diastolic 40–72; PULSE 115–129; RESP 21–36
[2018-09-10] MEDS: ALBUTEROL HFA 8 GM INHALER INH SCH ×4 (01:45→19:55)
[2018-09-10] MEDS: METOCLOPRAMIDE 10 MG INJ IV SCH (05:26)
[2018-09-10] MEDS: metroNIDAZOLE 500 MG/NS (PMX) 100 ML IVPB SCH ×3 (05:26→21:34)
[2018-09-10] MEDS: CEFTAZIDIME 1GM/50 ML (PMX) 50 ML IVPB SCH (05:26)
[2018-09-10] MEDS: SOD CHLORIDE 0.9% 500 ML IV ONE ×2 (06:43→06:52)
[2018-09-10] MEDS: IPRATROPIUM (HFA) 12.9 GM INHALER INH SCH ×3 (08:17→19:55)
[2018-09-10] MEDS: FAMOTIDINE 20 MG TAB GTB SCH (08:20)
[2018-09-10] MEDS: NAPHAZOLINE 0.012% 15 ML OPH BOTH EYES SCH ×4 (08:20→21:34)
[2018-09-10] MEDS: BALSAM PERU/CASTOR OIL 60 GM TUBE TOP SCH ×2 (08:20→21:35)
[2018-09-10] MEDS: POLYETHYLENE GLYCOL 17 GM PACKET GTB SCH (08:20)
[2018-09-10] MEDS: DOCUSATE SODIUM 10 MG/ML (10ML CUP) NGT SCH (08:21)
[2018-09-10] MEDS: QUETIAPINE 25 MG TAB GTB SCH ×2 (08:21→21:00)
[2018-09-10] MEDS: TIGECYCLINE 50 MG in SOD CHLORIDE 0.9% 100 ML IVPB SCH ×2 (08:22→21:41)
[2018-09-10] MEDS: HEPARIN 5,000 UNIT/1 ML VIAL SC SCH ×2 (08:24→21:36)
--- NOTE | 2018-09-10 08:41 | CONS ---
Assessment/Plan Assessment/Plan Hospital Course 32 yo morbidly obese male with multiple comorbidities who is admitted to the [facility] ICU for management of acute respiratory failure...now s/p trach He is noted to be protractedly encephalopathic, for which neurology is consulted. PNA+ MARTINE worsening On daily iv steroids, which likely precipitate/exacerbate psychosis Receiving multiple psychotropics.. Most clinically consistent with an acute and multifactorial toxic-metabolic encephalopathy. A focal [employer] process is less likely. Patient's body habitus is reportedly not amendable to neuroimaging P: Esopus as necessary Wean steroids as soon as able Agree w/ low dose seroquel prn in the short-term, to be titrated to effect PT/OT/ST when able to participate Other medical management per primary Will follow clinically Consultation Date/Type/Reason Admit Date/Time Aug 08, 2018 at 17:18 Type of Consult Neurology Reason for Consultation ams Requesting Provider: TATI CARDOZA Date/Time of Note DATE: 09/10/18 TIME: 08:40 24 HR Interval Summary Free Text/Dictation Continues icu care Exam Vital Signs Vitals Vital Signs Date Temp Pulse Resp B/P (MAP) Pulse Ox O2 O2 Flow FiO2 Time Delivery Rate 09/10/18 123 31 112/72 96 Mechanical 06:00 (85) Ventilator 09/10/18 40 05:40 09/10/18 98.4 05:00 09/07/18 10.0 12:00 Intake and Output 09/09/18 09/09/18 09/10/18 1515:00 23:00 07:00 IntakeIntake Total 580 ml 680 ml 570 ml OutputOutput Total 1100 ml 2080 ml 370 ml BalanceBalance -520 ml -1400 ml 200 ml Exam PE: Gen Appearance: No Apparent Distress HEENT: Trach Abdomen: Soft, obese Extremities: Dry NE: The patient was lethargic and nonverbal. Cranial nerve examination was limited by mental status. Pupils were equal and reactive to light. There was no afferent pupillary defect. Funduscopic examination was limited. Face was grossly symmetric, w/ present corneal and cough reflexes. Tone was normal. Muscle bulk was normal. I did not see fasciculations. The patient withdrew to noxious stimulation x 4. Coordination and gait testing was limited by mental status. Arm and leg reflexes were within normal limits and symmetric. Grimm's sign was absent. Plantar responses were flexor. IDOKO,RAYMOND Sep 10, 2018 08:41
--- NOTE | 2018-09-10 09:09 | PN ---
Date/Time of Note Date/Time of Note DATE: 09/10/18 TIME: 09:07 Assessment/Plan Lines/Catheters IV Catheter Type (from Nrs): JASON Santiago in Place (from Nrs): Yes Assessment/Plan Assessment/Plan #1 Small bowel follow-through shows no evidence of obstruction and no evidence of extravasation. #2. Left upper quadrant ultrasound performed 2 days ago reveals left upper quadrant collection. I feel that this is most likely tube feeds. Patient is scheduled for IR drainage today or tomorrow. #3. Some coffee-ground output from NG tube. Hematocrit stable. Continue to recheck H&H. May require endoscopy Subjective 24 Hr Interval Summary Subjective hx not possible: pt non-verbal, pt critical status Exam/Review of Systems Vital Signs Vitals Vital Signs Date Temp Pulse Resp B/P (MAP) Pulse Ox O2 O2 Flow FiO2 Time Delivery Rate 09/10/18 123 31 112/72 96 Mechanical 06:00 (85) Ventilator 09/10/18 40 05:40 09/10/18 98.4 05:00 09/07/18 10.0 12:00 Intake and Output 09/09/18 09/09/18 09/10/18 1515:00 23:00 07:00 IntakeIntake Total 580 ml 680 ml 570 ml OutputOutput Total 1100 ml 2080 ml 370 ml BalanceBalance -520 ml -1400 ml 200 ml Exam Constitutional: obese, other (Intubated and sedated) Respiratory: diminished breath sounds Cardiovascular: other (Tachycardic) Gastrointestinal: soft, non-tender, other (Persistent drainage from PEG tube site) Results Result Diagram: 09/10/18 0435 09/10/18 0435 CHRIS BARCENAS MD Sep 10, 2018 09:09
--- NOTE | 2018-09-10 09:12 | PN ---
Date/Time of Note Date/Time of Note DATE: 09/10/18 TIME: 09:07 Assessment/Plan VTE Prophylaxis Risk score (from Ns)>0 risk: 9 SCD applied (from Ns): No SCD contraindicated: other (no) Pharmacological prophylaxis: heparin Lines/Catheters IV C[facility]ter Type (from [facility]): JASON Urinary Cath still in place: Yes Reason Cath still needed: other (indicate) (intubated) Assessment/Plan Assessment/Plan 32yo Morbidly obese man who had presented with shortness of breath currently managed as follows: 1. Hypoxic/hypercapnic respiratory failure: -Secondary to ANDREW, exacerbated by pneumonia, underlying COPD with blebs now seen on CXR -Intubated , status post trach 08/24 -Currently off the ventilator, remains in ICU due to requiring frequent suctioning and copious secretions -steroids added 09/05/18 -back on vent 09/07/18 2. Encephalopathy, toxic metabolic, r/o hypoxic ischemic -patient remains confused intermittently, may have suffered a brain insult, unable to get MRI or CT 08/19 weight -appreciate neurology consult, will follow recs -attempted to cut back on dosing for Seroquel, but patient is still quite c onfused, Switched to BID dosing 3. Sepsis with Bilateral pneumonia -Cultures grew MDR Acinetobacter, now on inhaled colistin -CXR shows improvement in infiltrates, repeat blood cultures negative so far, urine and resp cultures pending -LE dopplers negative for DVT 4. Acute renal insufficiency now started on hemodialysis -schaefer was changed to r/o obstruction 09/06/18 -1st session 09/07/18, -HD per renal 5. Dislodged G tube with iatrogenic fluid pocket of extravasated tube feed. - He has a large pocket of tube feed which is either extravasated in subcutaneous fat or peritoneum. Does not look infected but this nutrient-rich media is at risk for infection. - Dr. Ybarra consulted, but patient would be high risk for surgery. PEG pulled 09/09 - Consulted radiology for US-guided drainage. - Will maintain NPO. Currently having some bloody output from NG tube, will start PPI and when output clears up will cautiously begin NG tube feeds. 6. Functional dysphagia status post PEG -Secondary to trach 7.. Chronic hypochromic anemia -stable, monitor 8. Severe Obesity -high risk for skin breakdown, -controlled calories while on tube feeds -has lost about 40 pounds so far since admission per nursing, but much of this could be diuresis. 7. Debility and lethargy -PT limited by patient's mental status 8. Hyperbilirubinemia - predominantly direct, alkaline phosphatase is normal -liver USS showed diffuse fatty liver -am labs with hepatitis screen pending 9. Steroid induced leucocytosis -monitor 10. Tachycardia -related to fevers per cardio, appreciate input Plan -remains in ICU for now d/t tenuous status and requiring repeated intervention -back on vent - US-guided fluid drainage, then restart tube feeds via NGt. -Continue HD per renal Prophylaxis : on Heparin tid d/t weight Poor prognosis CRITICAL CARE TIME: >35 mins Result Diagram: 09/10/1843409/10/18 043 Subjective 24 Hr Interval Summary Free Text/Dictation G tube pulled by Dr. Morrissey yesterday. Continues to have tube feed output from site, slightly pink-tinged, especially when being turned. Now has ostomy bag over it. Last night developed dark blood from NGT, about 300 cc total overnight. He is awake and moving hands. Having profuse diarrhea, rectal tube placed. Exam/Review of Systems Exam Vitals Vital Signs Date Temp Pulse Resp B/P (MAP) Pulse Ox O2 O2 Flow FiO2 Time Delivery Rate 09/10/18 123 31 112/72 96 Mechanical 06:00 (85) Ventilator 09/10/18 40 05:40 09/10/18 98.4 05:00 09/07/18 10.0 12:00 Intake and Output 09/09/18 09/09/18 09/10/18 1414:59 22:59 06:59 IntakeIntake Total 580 ml 680 ml 630 ml OutputOutput Total 1100 ml 2080 ml 370 ml BalanceBalance -520 ml -1400 ml 260 ml Exam Gen: Morbidly obese man lying in bed, opens eyes, attempts to speak Neck: Obese, trached HEENT: [place], scleral icterus Card: distant heart sounds Pulm: distant lung sounds. coarse Abd: Morbidly obese, soft, nontender. Ostomy bag over old G-tube site with sl ightly pink-tinged tube feed output. Ext: Bilateral LE chronic venous stasis changes, no edema, skin discoloration Medications Medication Current Medications IV Flush (NS 3 ml) 3 ml PER PROTOCOL IV ; Start 08/08/18 at 17:30 Ondansetron HCl (Zofran Inj) 4 mg Q6H PRN IV NAUSEA; Start 08/08/18 at 17:30 Midazolam HCl 50 ml @ 1 mls/hr TITRATE IV Last administered on 08/25/18 11:49; Admin Dose 4 MLS/HR; Start 08/13/18 at 08:30 Naphazoline HCl (Clear Eyes / Naphcon) 2 drop QID BOTH EYES Last administered on 09/10/18 08:20; Admin Dose 2 DROP; Start 08/16/18 at 18:14 Acetaminophen (Tylenol Liquid) 650 mg Q6H PRN NGT MILD PAIN(1-3)OR ELEVATED TEMP Last administered on 09/07/18 00:16; Admin Dose 650 MG; Start 08/17/18 at 00:57 Lorazepam (Ativan) 1 mg Q6H PRN IV AGITATION Last administered on 09/08/18 23:40; Admin Dose 1 MG; Start 08/28/18 at 02:30 Morphine Sulfate (morphine) 2 mg Q2H PRN IV SEVERE PAIN LEVEL 7-10 Last administered on 09/05/18 17:08; Admin Dose 2 MG; Start 08/28/18 at 09:00 Scopolamine (Transderm-Scop) 1 patch Q72H TRANSDERM Last administered on 09/09/18 12:08; Admin Dose 1 PATCH; Start 08/31/18 at 11:30 Polyethylene Glycol (Miralax) 17 gm DAILY GTB Last administered on 09/08/18 08:40; Admin Dose 17 GM; Start 09/05/18 at 10:30 Quetiapine Fumarate (Seroquel) 25 mg BID GTB Last administered on 09/10/18 08:21; Admin Dose 25 MG; Start 09/05/18 at 21:00 Tigecycline 50 mg/ Sodium Chloride 100 ml @ 200 mls/hr Q12 IVPB Last administered on 09/10/18 08:22; Admin Dose 200 MLS/HR; Start 09/05/18 at 23:00 Ceftazidime 50 ml @ 100 mls/hr Q24H IVPB Last administered on 09/10/18 05:26; Admin Dose 100 MLS/HR; Start 09/07/18 at 06:00 Heparin Sodium (Porcine) (Heparin (5000 Units/1ml)) 5,000 unit Q12 SC Last administered on 09/10/18 08:24; Admin Dose 5,000 UNIT; Start 09/06/18 at 21:00 IV Flush (NS 10 ml) 10 ml PRN PRN IV IV PROTOCOL; Start 09/06/18 at 17:30 Albumin Human 100 ml @ 100 mls/hr DURING DIALYSIS PRN IV BLOOD PRESSURE SUPPORT Last administered on 09/07/18 18:04; Admin Dose 100 MLS/HR; Start 09/07/18 at 09:30 Norepinephrine 250 ml @ 1.875 mls/ hr TITRATE IV ; Start 09/07/18 at 12:30 Albuterol (Ventolin Hfa) 4 puff Q6H RESP THERAPY INH Last administered on 09/10/18 08:17; Admin Dose 4 PUFF; Start 09/08/18 at 09:00 Ipratropium [place] (Atrovent Hfa) 4 puff Q6HWA RESP THERAPY INH Last administered on 09/10/18 08:17; Admin Dose 4 PUFF; Start 09/08/18 at 09:00 Heparin Sodium (Porcine) (Heparin (1000 Units/ml)) 3,100 unit PRN CATHETER Last administered on 09/09/18 19:35; Admin Dose 3,100 UNIT; Start 09/08/18 at 14:00 Metronidazole 100 ml @ 100 mls/hr Q8 IVPB Last administered on 09/10/18 05:26; Admin Dose 100 MLS/HR; Start 09/09/18 at 14:00 Pantoprazole (Protonix Iv) 40 mg BID@06,18 IV ; Start 09/10/18 at 18:00 ELIANE PEARSON MD Sep 10, 2018 09:12
[2018-09-10] MEDS ORDERED: POLYETHYLENE GLYCOL 17 GM PACKET GTB PRN (09:30)
--- NOTE | 2018-09-10 10:43 | CONS ---
Consult Date/Type/Reason Admit Date/Time Aug 08, 2018 at 17:18 Initial Consult Date 08/09/18 Type of Consult Pulmonary Requesting Provider: TATI CARDOZA Date/Time of Note DATE: 09/10/18 TIME: 10:41 Subjective More alert on mechanical ventilation. Having BMs now. Significant tube feeding output from G-tube stoma site. In addition still has significant secretions thick difficult to aspirate. Nasogastric tube shows evidence of active GI bleeding. Objective Vital Signs Date Temp Pulse Resp B/P (MAP) Pulse Ox O2 O2 Flow FiO2 Time Delivery Rate 09/10/18 115 21 83/53 (63) Mechanical 10:00 Ventilator 09/10/18 96 09:00 09/10/18 45 08:00 09/10/18 99.0 08:00 09/07/18 10.0 12:00 Intake and Output 09/09/18 09/09/18 09/10/18 1515:00 23:00 07:00 IntakeIntake Total 580 ml 680 ml 570 ml OutputOutput Total 1100 ml 2080 ml 370 ml BalanceBalance -520 ml -1400 ml 200 ml Exam GENERAL: Obese young gentleman tracheostomy on mechanical ventilation VITAL SIGNS: per chart NECK: Supple. No JVD or lymphadenopathy. CARDIAC EXAM: S1, S2. No added sounds or murmurs. CHEST: Diminished air entry bilaterally. ABDOMEN: Soft, nontender. No guarding or rebound. EXTREMITIES: No cyanosis, clubbing, edema +2 NEUROLOGIC: Generalized weakness. No focal deficits. Vent Setting Ventilator Support Mode: AC Fraction of Inspired Oxygen pe: 45 Positive End Expiratory Pressu: 5.0 Results/Medications Result Diagram: 09/10/18 0435 09/10/18 0435 Results 24 hrs Laboratory Tests Test 09/10/18 04:35 09/10/18 09:18 White Blood Count 26.8 H Red Blood Count 3.83 L Hemoglobin 9.0 L Hematocrit 31.7 L Mean Corpuscular Volume 82.8 Mean Corpuscular Hemoglobin 23.5 L Mean Corpuscular Hemoglobin Concent 28.4 L Red Cell Distribution Width 21.6 H Platelet Count 242 Mean Platelet Volume 11.4 H Immature Granulocytes % 3.600 H Neutrophils % 87.0 H Lymphocytes % 5.0 L Monocytes % 3.8 Eosinophils % 0.0 Basophils % 0.6 Nucleated Red Blood Cells % 0.3 H Immature Granulocytes # 0.960 H Neutrophils # 23.3 H Lymphocytes # 1.3 Monocytes # 1.0 H Eosinophils # 0.0 Basophils # 0.2 H Nucleated Red Blood Cells # 0.1 H Sodium Level 130 L Potassium Level 4.4 Chloride Level 91 L Carbon Dioxide Level 24 Anion Gap 15 H Blood Urea Nitrogen 79 H Creatinine 4.30 H Est Glomerular Filtrat Rate mL/min 16 L Glucose Level 348 #H Calcium Level 8.5 Phosphorus Level 6.9 H Total Bilirubin 1.0 Direct Bilirubin 0.80 #H Indirect Bilirubin 0.2 Aspartate Amino Transf (AST/SGOT) 29 Alanine Aminotransferase (ALT/SGPT) 42 Alkaline Phosphatase 126 H Total Protein 5.9 L Albumin 2.5 L Globulin 3.40 H Albumin/Globulin Ratio 0.73 Prothrombin Time 19.1 H Prothrombin Time Ratio 1.5 INR International Normalized Ratio 1.60 Activated Partial Thromboplast Time 38.7 H Medications Current Medications IV Flush (NS 3 ml) 3 ml PER PROTOCOL IV ; Start 08/08/18 at 17:30 Ondansetron HCl (Zofran Inj) 4 mg Q6H PRN IV NAUSEA; Start 08/08/18 at 17:30 Midazolam HCl 50 ml @ 1 mls/hr TITRATE IV Last administered on 08/25/18at 11:49; Admin Dose 4 MLS/HR; Start 08/13/18 at 08:30 Naphazoline HCl (Clear Eyes / Naphcon) 2 drop QID BOTH EYES Last administered on 09/10/18at 08:20; Admin Dose 2 DROP; Start 08/16/18 at 18:14 Acetaminophen (Tylenol Liquid) 650 mg Q6H PRN NGT MILD PAIN(1-3)OR ELEVATED TEMP Last administered on 09/07/18at 00:16; Admin Dose 650 MG; Start 08/17/18 at 00:57 Lorazepam (Ativan) 1 mg Q6H PRN IV AGITATION Last administered on 09/08/18at 23:40; Admin Dose 1 MG; Start 08/28/18 at 02:30 Morphine Sulfate (morphine) 2 mg Q2H PRN IV SEVERE PAIN LEVEL 7-10 Last admini stered on 09/05/18at 17:08; Admin Dose 2 MG; Start 08/28/18 at 09:00 Scopolamine (Transderm-Scop) 1 patch Q72H TRANSDERM Last administered on 09/09/18 12:08; Admin Dose 1 PATCH; Start 08/31/18 at 11:30 Quetiapine Fumarate (Seroquel) 25 mg BID GTB Last administered on 09/10/18 08:21; Admin Dose 25 MG; Start 09/05/18 at 21:00 Tigecycline 50 mg/ Sodium Chloride 100 ml @ 200 mls/hr Q12 IVPB Last administered on 09/10/18 08:22; Admin Dose 200 MLS/HR; Start 09/05/18 at 23:00 Ceftazidime 50 ml @ 100 mls/hr Q24H IVPB Last administered on 09/10/18 05:26; Admin Dose 100 MLS/HR; Start 09/07/18 at 06:00 Heparin Sodium (Porcine) (Heparin (5000 Units/1ml)) 5,000 unit Q12 SC Last administered on 09/10/18 08:24; Admin Dose 5,000 UNIT; Start 09/06/18 at 21:00 IV Flush (NS 10 ml) 10 ml PRN PRN IV IV PROTOCOL; Start 09/06/18 at 17:30 Albumin Human 100 ml @ 100 mls/hr DURING DIALYSIS PRN IV BLOOD PRESSURE SUPPORT Last administered on 09/07/18 18:04; Admin Dose 100 MLS/HR; Start 09/07/18 at 09:30 Norepinephrine 250 ml @ 1.875 mls/ hr TITRATE IV ; Start 09/07/18 at 12:30 Albuterol (Ventolin Hfa) 4 puff Q6H RESP THERAPY INH Last administered on 09/10/18 08:17; Admin Dose 4 PUFF; Start 09/08/18 at 09:00 Ipratropium [place] (Atrovent Hfa) 4 puff Q6HWA RESP THERAPY INH Last administered on 09/10/18 08:17; Admin Dose 4 PUFF; Start 09/08/18 at 09:00 Heparin Sodium (Porcine) (Heparin (1000 Units/ml)) 3,100 unit PRN CATHETER Last administered on 09/09/18 19:35; Admin Dose 3,100 UNIT; Start 09/08/18 at 14:00 Metronidazole 100 ml @ 100 mls/hr Q8 IVPB Last administered on 2/24/19at 05:26; Admin Dose 100 MLS/HR; Start 09/09/18 at 14:00 Pantoprazole (Protonix Iv) 40 mg BID@06,18 IV ; Start 09/10/18 at 18:00 Polyethylene Glycol (Miralax) 17 gm DAILY PRN GTB CONSTIPATION; Start 09/10/18 at 09:30 Acetylcysteine (Mucomyst) 1 ml Q6H RESP THERAPY NEB ; Start 09/10/18 at 14:00 Assessment/Plan Hospital Course (Demo Recall) IMP: 1. Acute on chronic hypoxemic and hypercapnic respiratory failure, failed multiple weaning trials status post tracheostomy. Significant secretions, 2. G-tube was misplaced with tube feeding and abdominal cavity. 3. History of obesity hypoventilation syndrome and probable obstructive sleep apnea 4. Leukocytosis With ongoing fevers and persistent diarrhea. 5. Acute renal failure. Now on hemodialysis 6. Small bowel obstruction with severe sepsis RECS: 1. Continue AC mechanical ventilation for now not for weaning. And Mucomyst for increased secretions 2. Continue ID recommendations 3. GI recommendations regarding removal of tube feed in abdominal cavity 4. Acute renal failure continue hemodialysis per nephrology 5. Surgery recommendations with ongoing small bowel obstruction. Prognosis guarded 40 min cc time Discussed with staff at length. JULIETH PUENTE MD, [facility] Sep 10, 2018 10:43
--- NOTE | 2018-09-10 11:15 | CONS ---
Assessment/Plan Assessment/Plan Assessment/Plan (Daily) 1. Acute on chronic hypoxemic and hypercapnic respiratory failure, failed multiple weaning trials status post tracheostomy. Significant secretions, likely due to combination of obesity hypoventilation syndrome and diastolic chf 2. MARTINE: now hd dependent.s/p hd yesterday and will schedule hd again in am 3. Morbid obesity: no change 4. Leukocytosis With ongoing fevers and persistent diarrhea.abx per pcp. g tube misplaced in the abd cavity with leak. no residual sbp. gi following and to schedule removal 5. Small bowel obstruction with severe sepsis: surgery following/ xrays better but issue with g tube as above 6- Anemia in esrd: epogen if hb < 10 Consultation Date/Type/Reason Admit Date/Time Aug 08, 2018 at 17:18 Initial Consult Date 09/06/18 Requesting Provider: TATI CARDOZA Date/Time of Note DATE: 09/10/18 TIME: 11:12 24 HR Interval Summary Free Text/Dictation events note. g tube missplaced and leaking into abd cavity with large residual. appears more alert today. s/p hd yesterday Exam/Review of Systems Exam Vitals Vital Signs Date Temp Pulse Resp B/P (MAP) Pulse Ox O2 O2 Flow FiO2 Time Delivery Rate 09/10/18 115 21 83/53 (63) Mechanical 10:00 Ventilator 09/10/18 96 09:00 09/10/18 45 08:00 09/10/18 99.0 08:00 09/07/18 10.0 12:00 Intake and Output 09/09/18 09/09/18 09/10/18 1515:00 23:00 07:00 IntakeIntake Total 580 ml 680 ml 570 ml OutputOutput Total 1100 ml 2080 ml 370 ml BalanceBalance -520 ml -1400 ml 200 ml Constitutional: alert Head: normocephalic Neck: supple (trache in place) Respiratory: diminished breath sounds Cardiovascular: regular rate and rhythm, edema Gastrointestinal: other (morbid obesity) Results Result Diagram: 09/10/18 0435 09/10/18 0435 Results 24hrs Laboratory Tests Test 09/10/18 04:35 09/10/18 09:18 White Blood Count 26.8 H Red Blood Count 3.83 L Hemoglobin 9.0 L Hematocrit 31.7 L Mean Corpuscular Volume 82.8 Mean Corpuscular Hemoglobin 23.5 L Mean Corpuscular Hemoglobin Concent 28.4 L Red Cell Distribution Width 21.6 H Platelet Count 242 Mean Platelet Volume 11.4 H Immature Granulocytes % 3.600 H Neutrophils % 87.0 H Lymphocytes % 5.0 L Monocytes % 3.8 Eosinophils % 0.0 Basophils % 0.6 Nucleated Red Blood Cells % 0.3 H Immature Granulocytes # 0.960 H Neutrophils # 23.3 H Lymphocytes # 1.3 Monocytes # 1.0 H Eosinophils # 0.0 Basophils # 0.2 H Nucleated Red Blood Cells # 0.1 H Sodium Level 130 L Potassium Level 4.4 Chloride Level 91 L Carbon Dioxide Level 24 Anion Gap 15 H Blood Urea Nitrogen 79 H Creatinine 4.30 H Est Glomerular Filtrat Rate mL/min 16 L Glucose Level 348 #H Calcium Level 8.5 Phosphorus Level 6.9 H Total Bilirubin 1.0 Direct Bilirubin 0.80 #H Indirect Bilirubin 0.2 Aspartate Amino Transf (AST/SGOT) 29 Alanine Aminotransferase (ALT/SGPT) 42 Alkaline Phosphatase 126 H Total Protein 5.9 L Albumin 2.5 L Globulin 3.40 H Albumin/Globulin Ratio 0.73 Prothrombin Time 19.1 H Prothrombin Time Ratio 1.5 INR International Normalized Ratio 1.60 Activated Partial Thromboplast Time 38.7 H Medications Medication Current Medications IV Flush (NS 3 ml) 3 ml PER PROTOCOL IV ; Start 08/08/18 at 17:30 Ondansetron HCl (Zofran Inj) 4 mg Q6H PRN IV NAUSEA; Start 08/08/18 at 17:30 Midazolam HCl 50 ml @ 1 mls/hr TITRATE IV Last administered on 08/25/18at 11:49; Admin Dose 4 MLS/HR; Start 08/13/18 at 08:30 Naphazoline HCl (Clear Eyes / Naphcon) 2 drop QID BOTH EYES Last administered on 09/10/18at 08:20; Admin Dose 2 DROP; Start 08/16/18 at 18:14 Acetaminophen (Tylenol Liquid) 650 mg Q6H PRN NGT MILD PAIN(1-3)OR ELEVATED TEMP Last administered on 09/07/18at 00:16; Admin Dose 650 MG; Start 08/17/18 at 00:57 Lorazepam (Ativan) 1 mg Q6H PRN IV AGITATION Last administered on 09/08/18 23:40; Admin Dose 1 MG; Start 08/28/18 at 02:30 Morphine Sulfate (morphine) 2 mg Q2H PRN IV SEVERE PAIN LEVEL 7-10 Last administered on 09/05/18 17:08; Admin Dose 2 MG; Start 08/28/18 at 09:00 Scopolamine (Transderm-Scop) 1 patch Q72H TRANSDERM Last administered on 09/09/18 12:08; Admin Dose 1 PATCH; Start 08/31/18 at 11:30 Quetiapine Fumarate (Seroquel) 25 mg BID GTB Last administered on 09/10/18 08:21; Admin Dose 25 MG; Start 09/05/18 at 21:00 Tigecycline 50 mg/ Sodium Chloride 100 ml @ 200 mls/hr Q12 IVPB Last administered on 09/10/18 08:22; Admin Dose 200 MLS/HR; Start 09/05/18 at 23:00 Ceftazidime 50 ml @ 100 mls/hr Q24H IVPB Last administered on 09/10/18 05:26; Admin Dose 100 MLS/HR; Start 09/07/18 at 06:00 Heparin Sodium (Porcine) (Heparin (5000 Units/1ml)) 5,000 unit Q12 SC Last administered on 09/10/18 08:24; Admin Dose 5,000 UNIT; Start 09/06/18 at 21:00 IV Flush (NS 10 ml) 10 ml PRN PRN IV IV PROTOCOL; Start 09/06/18 at 17:30 Albumin Human 100 ml @ 100 mls/hr DURING DIALYSIS PRN IV BLOOD PRESSURE SUPPORT Last administered on 09/07/18 18:04; Admin Dose 100 MLS/HR; Start 09/07/18 at 09:30 Norepinephrine 250 ml @ 1.875 mls/ hr TITRATE IV ; Start 09/07/18 at 12:30 Albuterol (Ventolin Hfa) 4 puff Q6H RESP THERAPY INH Last administered on 09/10/18 08:17; Admin Dose 4 PUFF; Start 09/08/18 at 09:00 Ipratropium [place] (Atrovent Hfa) 4 puff Q6HWA RESP THERAPY INH Last administered on 09/10/18 08:17; Admin Dose 4 PUFF; Start 09/08/18 at 09:00 Heparin Sodium (Porcine) (Heparin (1000 Units/ml)) 3,100 unit PRN CATHETER Last administered on 09/09/18at 19:35; Admin Dose 3,100 UNIT; Start 09/08/18 at 14:00 Metronidazole 100 ml @ 100 mls/hr Q8 IVPB Last administered on 09/10/18at 05:26; Admin Dose 100 MLS/HR; Start 09/09/18 at 14:00 Pantoprazole (Protonix Iv) 40 mg BID@06,18 IV ; Start 09/10/18 at 18:00 Polyethylene Glycol (Miralax) 17 gm DAILY PRN GTB CONSTIPATION; Start 09/10/18 at 09:30 Acetylcysteine (Mucomyst) 1 ml Q6H RESP THERAPY NEB ; Start 09/10/18 at 14:00 CHARLEE IZQUIERDO MD Sep 10, 2018 11:15
--- NOTE | 2018-09-10 11:58 | CONS ---
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 No evidence of bowel obstruction. Transition time of the contrast reaching to the colon is less than 60 minutes. 2. No evidence of extravasation of the contrast from the stomach. * 09/05/19 ABD XR revealed: Findings of small bowel obstruction with a possib le mass, fluid collection, or hematoma in the left abdomen RECENT ICU COURSE THIS PAST WEEK EVENTS * Septic shock, low grade temps, WBC elevated == now back on AC Vent * WBC elevated in part due to ABX holiday and partial IV STEROIDS DEMARGINATION * MARTINE partially due to Colimycin for ACBA MDRO pulmonary sepsis = HD PLAN INITIATED * NEW PICC Placed 09/06/18 * FC changed 09/06/18 . DIAGNOSTIC IMAGING * 09/06/18 CXR: IMPRESSION: * 1. Tracheostomy and PICC line in appropriate position. * 2. Similar bilateral perihilar interstitial opacities representing pulmonary edema or infection. * 3. Small left pleural effusion * 09/05/18 liver US: IMPRESSION:Diffuse fatty infiltration of an enlarged liver.Pancreas not well visualized. If characterization of this structure is needed repeat exam or CT/MRI is recommended. * 09/05/18 ABD XR: IMPRESSION: Findings of small bowel obstruction with a possible mass, fluid collection, or hematoma in the left abdomen. MICRO/OTHER * 09/05/18 Urine Cx (-) * 09/05/18 BCx(-) * 08/30/18 BCx (-) * 08/29/18 PICC Tip (-) * 08/29/18 BCx (-) * 08/29/18 RESP CX: RESPIRATORY CULTURE Final Organism 1 ACINETOBACTER BAUMANNII QUANTITY 1+ A.BAUMANNI A.BAUMANNI M.I.C. RX M.I.C. RX --------- --- --------- --- AMIKACIN R CEFEPIME >=64 R CEFTAZIDIME 16 I CIPROFLOXACIN >=4 R GENTAMICIN >=16 R LEVOFLOXACIN >=8 R MEROPENEM >32 R TOBRAMYCIN >=16 R TRIMETHOPRIM/SULFAMETHOXAZOLE >=320 R PIPERACILLIN/TAZOBACTAM >=128 R * 08/26/18 (-)C.Diff * 08/26/18 BCX (+) Cons BLOOD CULTURE Final BCULT GRAM BOTTLE 1 Gram positive cocci in clusters 1 of 2 bottles . seen on gram stain of the broth Organism 1 COAGULASE NEGATIVE STAPH * 08/16/18 Respiratory Cx (+)ACBA = MDRO * 08/09/18 BRONCH (-) * 08/08/18 (-)MRSA, (-)Influenza A/B, (-)UTI * 08/08/18 BCx (-) * PHYSICAL EXAMINATION: GENERAL: Non-communicative, super morbid obese M, orally intubated, sedated on the Vent, looks comfortable, NAD HEENT: AT, NC, anicteric NECK: Supple, (+)Trach in place CHEST: Equal chest rise bilaterally, without dyspnea on observation = Vented HEART: Pulse RRR ABDOMEN: Soft / NT EXTREMITIES: Warm, dry SKIN: No rash, no diaphoresis, multiple Tattoos ID ASSESSMENT 32 yo Super Morbid Obese M admit with: 1. Sepsis w/Fevers - MULTIFACTORIAL ETIOLOGIES => NEW 09/05/18 XR ABD WALL ABSCESS * 09/05/18 Urine Cx (-) * 09/05/18 BCx(-) * HCAP superimposed on probable ASP PNA * S/P PICC Line Sepsis -- BCx (+) opportunistic CoNS -- PICC Line DC'd 08/29/18 2. ABD WALL ABSCESS (+)GT dislodged w/LLQ ABD wall abscess/fluid collection -- PEG REMOVED * EC fistula is draining into ostomy bag -- when patient is turned onto left side drainage increases * (+) GIB -- probable ulceration at site of gastrostomy site -- NGT to suction w/dark blood drainage * NO SBO * 09/09/18 ABD XR BOWEL FOLLOW THRU: 1. No evidence of bowel obstruction. Transition time of the contrast reaching to the colon is less than 60 minutes. 2. No evidence of extravasation of the contrast from the stomach. * 09/05/19 ABD XR revealed: Findings of small bowel obstruction with a possible mass, fluid collection, or hematoma in the left abdomen 3. PNA -- ASP PNA risk factors * 08/09/18 BRONCH (-) * 08/29/18 RESP CX: RESPIRATORY CULTURE Final Organism 1 ACINETOBACTER BAUMANNII = MDRO 4. Acute hypoxic respiratory failure => s/p Trach placement 5. Obstructive Sleep Apnea/Obesity hypoventilation syndrome 6. MARTINE partially due to Colimycin for ACBA MDRO pulmonary sepsis = Colimycin DC'd 09/04/18 7. Fatty Liver w/abnormal ABX XR ? Mass vs Hematoma * 09/05/18 ABD XR: IMPRESSION: Findings of small bowel obstruction with a possible mass, fluid collection, or hematoma in the left abdomen. 8. Ileus vs SBO 9. 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 Diarrhea = ABX associated w/(-)C.Diff toxin (-)MRSA Nares ABX ALLERGIES: KNDA INVASIVES: Trach, PEG, NEW PICC (09/06/18), FC changed 09/06/18 CURRENT ABX: DAY 33=> FORTAZ #6+ TYGACIL #6 + Flagyl 09/04 Zyvox + Colistin Diflucan -> DC'd s/p Vanco IV/Zosyn ID RECOMMENDATIONS/PLAN: 1. Continue current ABX -- DC Flagyl soon 2. IV steroids tapering 2. MARTINE W/HD initiated => PLAN IS FOR RENAL RECOVERY = AVOID NEPHROTOXIC ABX Consultation Date/Type/Reason Admit Date/Time Aug 08, 2018 at 17:18 Initial Consult Date 08/09/18 Requesting Provider: TATI CARDOZA Date/Time of Note DATE: 09/10/18 TIME: 11:43 Exam/Review of Systems Exam Vitals Vital Signs Date Temp Pulse Resp B/P (MAP) Pulse Ox O2 O2 Flow FiO2 Time Delivery Rate 09/10/18 115 21 83/53 (63) Mechanical 10:00 Ventilator 09/10/18 96 09:00 09/10/18 45 08:00 09/10/18 99.0 08:00 09/07/18 10.0 12:00 Intake and Output 09/09/18 09/09/18 09/10/18 1515:00 23:00 07:00 IntakeIntake Total 580 ml 680 ml 570 ml OutputOutput Total 1100 ml 2080 ml 370 ml BalanceBalance -520 ml -1400 ml 200 ml Results Result Diagram: 09/10/18 0435 09/10/18 0435 Results 24hrs Laboratory Tests Test 09/10/18 04:35 09/10/18 09:18 White Blood Count 26.8 H Red Blood Count 3.83 L Hemoglobin 9.0 L Hematocrit 31.7 L Mean Corpuscular Volume 82.8 Mean Corpuscular Hemoglobin 23.5 L Mean Corpuscular Hemoglobin Concent 28.4 L Red Cell Distribution Width 21.6 H Platelet Count 242 Mean Platelet Volume 11.4 H Immature Granulocytes % 3.600 H Neutrophils % 87.0 H Lymphocytes % 5.0 L Monocytes % 3.8 Eosinophils % 0.0 Basophils % 0.6 Nucleated Red Blood Cells % 0.3 H Immature Granulocytes # 0.960 H Neutrophils # 23.3 H Lymphocytes # 1.3 Monocytes # 1.0 H Eosinophils # 0.0 Basophils # 0.2 H Nucleated Red Blood Cells # 0.1 H Sodium Level 130 L Potassium Level 4.4 Chloride Level 91 L Carbon Dioxide Level 24 Anion Gap 15 H Blood Urea Nitrogen 79 H Creatinine 4.30 H Est Glomerular Filtrat Rate mL/min 16 L Glucose Level 348 #H Calcium Level 8.5 Phosphorus Level 6.9 H Total Bilirubin 1.0 Direct Bilirubin 0.80 #H Indirect Bilirubin 0.2 Aspartate Amino Transf (AST/SGOT) 29 Alanine Aminotransferase (ALT/SGPT) 42 Alkaline Phosphatase 126 H Total Protein 5.9 L Albumin 2.5 L Globulin 3.40 H Albumin/Globulin Ratio 0.73 Prothrombin Time 19.1 H Prothrombin Time Ratio 1.5 INR International Normalized Ratio 1.60 Activated Partial Thromboplast Time 38.7 H Medications Medication Current Medications IV Flush (NS 3 ml) 3 ml PER PROTOCOL IV ; Start 08/08/18 at 17:30 Ondansetron HCl (Zofran Inj) 4 mg Q6H PRN IV NAUSEA; Start 08/08/18 at 17:30 Midazolam HCl 50 ml @ 1 mls/hr TITRATE IV Last administered on 08/25/18 11:49; Admin Dose 4 MLS/HR; Start 08/13/18 at 08:30 Naphazoline HCl (Clear Eyes / Naphcon) 2 drop QID BOTH EYES Last administered on 09/10/18 08:20; Admin Dose 2 DROP; Start 08/16/18 at 18:14 Acetaminophen (Tylenol Liquid) 650 mg Q6H PRN NGT MILD PAIN(1-3)OR ELEVATED TEMP Last administered on 09/07/18 00:16; Admin Dose 650 MG; Start 08/17/18 at 00:57 Lorazepam (Ativan) 1 mg Q6H PRN IV AGITATION Last administered on 09/08/18 23: 40; Admin Dose 1 MG; Start 08/28/18 at 02:30 Morphine Sulfate (morphine) 2 mg Q2H PRN IV SEVERE PAIN LEVEL 7-10 Last administered on 09/05/18 17:08; Admin Dose 2 MG; Start 08/28/18 at 09:00 Scopolamine (Transderm-Scop) 1 patch Q72H TRANSDERM Last administered on 09/09/18 12:08; Admin Dose 1 PATCH; Start 08/31/18 at 11:30 Quetiapine Fumarate (Seroquel) 25 mg BID GTB Last administered on 09/10/18 08:21; Admin Dose 25 MG; Start 09/05/18 at 21:00 Tigecycline 50 mg/ Sodium Chloride 100 ml @ 200 mls/hr Q12 IVPB Last administered on 09/10/18 08:22; Admin Dose 200 MLS/HR; Start 09/05/18 at 23:00 Ceftazidime 50 ml @ 100 mls/hr Q24H IVPB Last administered on 09/10/18 05:26; Admin Dose 100 MLS/HR; Start 09/07/18 at 06:00 Heparin Sodium (Porcine) (Heparin (5000 Units/1ml)) 5,000 unit Q12 SC Last administered on 09/10/18 08:24; Admin Dose 5,000 UNIT; Start 09/06/18 at 21:00 IV Flush (NS 10 ml) 10 ml PRN PRN IV IV PROTOCOL; Start 09/06/18 at 17:30 Albumin Human 100 ml @ 100 mls/hr DURING DIALYSIS PRN IV BLOOD PRESSURE SUPPORT Last administered on 09/07/18 18:04; Admin Dose 100 MLS/HR; Start 09/07/18 at 09:30 Norepinephrine 250 ml @ 1.875 mls/ hr TITRATE IV ; Start 09/07/18 at 12:30 Albuterol (Ventolin Hfa) 4 puff Q6H RESP THERAPY INH Last administered on 09/10/18 08:17; Admin Dose 4 PUFF; Start 09/08/18 at 09:00 Ipratropium [place] (Atrovent Hfa) 4 puff Q6HWA RESP THERAPY INH Last administered on 09/10/18 08:17; Admin Dose 4 PUFF; Start 09/08/18 at 09:00 Heparin Sodium (Porcine) (Heparin (1000 Units/ml)) 3,100 unit PRN CATHETER Last administered on 09/09/18 19:35; Admin Dose 3,100 UNIT; Start 09/08/18 at 14:00 Metronidazole 100 ml @ 100 mls/hr Q8 IVPB Last administered on 09/10/18 05:26; Admin Dose 100 MLS/HR; Start 09/09/18 at 14:00 Pantoprazole (Protonix Iv) 40 mg BID@06,18 IV ; Start 09/10/18 at 18:00 Polyethylene Glycol (Miralax) 17 gm DAILY PRN GTB CONSTIPATION; Start 09/10/18 at 09:30 Acetylcysteine (Mucomyst) 1 ml Q6H RESP THERAPY NEB ; Start 09/10/18 at 14:00 GARCÍA JOHNSON [employer] Sep 10, 2018 11:57
--- NOTE | 2018-09-10 12:36 | PN ---
Date/Time of Note Date/Time of Note DATE: 09/10/18 TIME: 12:09 Assessment/Plan VTE Prophylaxis Risk score (from Ns)>0 risk: 8 SCD applied (from Ns): Yes Pharmacological prophylaxis: NA/contraindicated Pharm contraindication: bleeding Lines/Catheters IV Catheter Type (from [facility]): Nikko Cath Urinary Cath still in place: Yes Reason Cath still needed: urinary retention Assessment/Plan Assessment/Plan Assessment: Coffee-ground emesis Anemia Sepsis Accidental displacement of GT (Removed) r/o abdominal wall cellulitis (not evident thus far) VDRF Encephalopathy Morbid obesity Contact isolation Plan: EGD tomorrow Start Protonix gtt. H and H Q6 Transfuse for hemoglobin less then 7.5 Local Gt site care SBFT is negative for obstruction Replace GT once abdominal wall healed Reassess feasibility of CT Patient seen in collaboration with Dr. Morrissey Subjective: Patient developed coffee ground output via NG tube overnight. Hgb is 9.0. Will order Protonix gtt. H and H Q6. Plan for EGD tomorrow. Risks and benefits of the procedure have been discussed with the brother at the bed side. He is agreeable to the procedure. WBC is trending down. Will continue close observation . GENERAL: Morbidly Obese, trached on ventilator HEENT: Supple. No JVD or lymphadenopathy. NG tube in place with coffee ground output. CARDIAC EXAM: S1, S2. No murmurs. CHEST: Scattered crackles ABDOMEN: Soft, nontender. G-tube stoma to drainage bag with milky output. No guarding or rebound. EXTREMITIES: No cyanosis, clubbing, edema +2 Result Diagram: 09/10/18 0435 09/10/18 0435 Results 24hrs Laboratory Tests Test 09/10/18 04:35 09/10/18 09:18 White Blood Count 26.8 H Red Blood Count 3.83 L Hemoglobin 9.0 L Hematocrit 31.7 L Mean Corpuscular Volume 82.8 Mean Corpuscular Hemoglobin 23.5 L Mean Corpuscular Hemoglobin Concent 28.4 L Red Cell Distribution Width 21.6 H Platelet Count 242 Mean Platelet Volume 11.4 H Immature Granulocytes % 3.600 H Neutrophils % 87.0 H Lymphocytes % 5.0 L Monocytes % 3.8 Eosinophils % 0.0 Basophils % 0.6 Nucleated Red Blood Cells % 0.3 H Immature Granulocytes # 0.960 H Neutrophils # 23.3 H Lymphocytes # 1.3 Monocytes # 1.0 H Eosinophils # 0.0 Basophils # 0.2 H Nucleated Red Blood Cells # 0.1 H Sodium Level 130 L Potassium Level 4.4 Chloride Level 91 L Carbon Dioxide Level 24 Anion Gap 15 H Blood Urea Nitrogen 79 H Creatinine 4.30 H Est Glomerular Filtrat Rate mL/min 16 L Glucose Level 348 #H Calcium Level 8.5 Phosphorus Level 6.9 H Total Bilirubin 1.0 Direct Bilirubin 0.80 #H Indirect Bilirubin 0.2 Aspartate Amino Transf (AST/SGOT) 29 Alanine Aminotransferase (ALT/SGPT) 42 Alkaline Phosphatase 126 H Total Protein 5.9 L Albumin 2.5 L Globulin 3.40 H Albumin/Globulin Ratio 0.73 Prothrombin Time 19.1 H Prothrombin Time Ratio 1.5 INR International Normalized Ratio 1.60 Activated Partial Thromboplast Time 38.7 H CC: SARAH MORRISSEY MD ; Exam/Review of Systems Exam Vitals Vital Signs Date Temp Pulse Resp B/P (MAP) Pulse Ox O2 O2 Flow FiO2 Time Delivery Rate 09/10/18 115 21 83/53 (63) Mechanical 10:00 Ventilator 09/10/18 96 09:00 09/10/18 45 08:00 09/10/18 99.0 08:00 09/07/18 10.0 12:00 Intake and Output 09/09/18 09/09/18 09/10/18 1515:00 23:00 07:00 IntakeIntake Total 580 ml 680 ml 570 ml OutputOutput Total 1100 ml 2080 ml 370 ml BalanceBalance -520 ml -1400 ml 200 ml Results Results 24hrs Laboratory Tests Test 09/10/18 04:35 09/10/18 09:18 White Blood Count 26.8 H Red Blood Count 3.83 L Hemoglobin 9.0 L Hematocrit 31.7 L Mean Corpuscular Volume 82.8 Mean Corpuscular Hemoglobin 23.5 L Mean Corpuscular Hemoglobin Concent 28.4 L Red Cell Distribution Width 21.6 H Platelet Count 242 Mean Platelet Volume 11.4 H Immature Granulocytes % 3.600 H Neutrophils % 87.0 H Lymphocytes % 5.0 L Monocytes % 3.8 Eosinophils % 0.0 Basophils % 0.6 Nucleated Red Blood Cells % 0.3 H Immature Granulocytes # 0.960 H Neutrophils # 23.3 H Lymphocytes # 1.3 Monocytes # 1.0 H Eosinophils # 0.0 Basophils # 0.2 H Nucleated Red Blood Cells # 0.1 H Sodium Level 130 L Potassium Level 4.4 Chloride Level 91 L Carbon Dioxide Level 24 Anion Gap 15 H Blood Urea Nitrogen 79 H Creatinine 4.30 H Est Glomerular Filtrat Rate mL/min 16 L Glucose Level 348 #H Calcium Level 8.5 Phosphorus Level 6.9 H Total Bilirubin 1.0 Direct Bilirubin 0.80 #H Indirect Bilirubin 0.2 Aspartate Amino Transf (AST/SGOT) 29 Alanine Aminotransferase (ALT/SGPT) 42 Alkaline Phosphatase 126 H Total Protein 5.9 L Albumin 2.5 L Globulin 3.40 H Albumin/Globulin Ratio 0.73 Prothrombin Time 19.1 H Prothrombin Time Ratio 1.5 INR International Normalized Ratio 1.60 Activated Partial Thromboplast Time 38.7 H Medications Medication Current Medications IV Flush (NS 3 ml) 3 ml PER PROTOCOL IV ; Start 08/08/18 at 17:30 Ondansetron HCl (Zofran Inj) 4 mg Q6H PRN IV NAUSEA; Start 08/08/18 at 17:30 Midazolam HCl 50 ml @ 1 mls/hr TITRATE IV Last administered on 08/25/18at 11:49; Admin Dose 4 MLS/HR; Start 08/13/18 at 08:30 Naphazoline HCl (Clear Eyes / Naphcon) 2 drop QID BOTH EYES Last administered on 09/10/18 08:20; Admin Dose 2 DROP; Start 08/16/18 at 18:14 Acetaminophen (Tylenol Liquid) 650 mg Q6H PRN NGT MILD PAIN(1-3)OR ELEVATED TEMP Last administered on 09/07/18at 00:16; Admin Dose 650 MG; Start 08/17/18 at 00:57 Lorazepam (Ativan) 1 mg Q6H PRN IV AGITATION Last administered on 09/08/18 23:40; Admin Dose 1 MG; Start 08/28/18 at 02:30 Morphine Sulfate (morphine) 2 mg Q2H PRN IV SEVERE PAIN LEVEL 7-10 Last administered on 09/05/18 17:08; Admin Dose 2 MG; Start 08/28/18 at 09:00 Scopolamine (Transderm-Scop) 1 patch Q72H TRANSDERM Last administered on 2/23/19at 12:08; Admin Dose 1 PATCH; Start 08/31/18 at 11:30 Quetiapine Fumarate (Seroquel) 25 mg BID GTB Last administered on 09/10/18 08:21; Admin Dose 25 MG; Start 09/05/18 at 21:00 Tigecycline 50 mg/ Sodium Chloride 100 ml @ 200 mls/hr Q12 IVPB Last administered on 09/10/18 08:22; Admin Dose 200 MLS/HR; Start 09/05/18 at 23:00 Ceftazidime 50 ml @ 100 mls/hr Q24H IVPB Last administered on 09/10/18 05:26; Admin Dose 100 MLS/HR; Start 09/07/18 at 06:00 Heparin Sodium (Porcine) (Heparin (5000 Units/1ml)) 5,000 unit Q12 SC Last administered on 09/10/18 08:24; Admin Dose 5,000 UNIT; Start 09/06/18 at 21:00 IV Flush (NS 10 ml) 10 ml PRN PRN IV IV PROTOCOL; Start 09/06/18 at 17:30 Albumin Human 100 ml @ 100 mls/hr DURING DIALYSIS PRN IV BLOOD PRESSURE SUPPORT Last administered on 09/07/18 18:04; Admin Dose 100 MLS/HR; Start 09/07/18 at 09:30 Norepinephrine 250 ml @ 1.875 mls/ hr TITRATE IV ; Start 09/07/18 at 12:30 Albuterol (Ventolin Hfa) 4 puff Q6H RESP THERAPY INH Last administered on 09/10/18 08:17; Admin Dose 4 PUFF; Start 09/08/18 at 09:00 Ipratropium [place] (Atrovent Hfa) 4 puff Q6HWA RESP THERAPY INH Last administered on 09/10/18 08:17; Admin Dose 4 PUFF; Start 09/08/18 at 09:00 Heparin Sodium (Porcine) (Heparin (1000 Units/ml)) 3,100 unit PRN CATHETER Last administered on 09/09/18 19:35; Admin Dose 3,100 UNIT; Start 09/08/18 at 14:00 Metronidazole 100 ml @ 100 mls/hr Q8 IVPB Last administered on 09/10/18 05:26; Admin Dose 100 MLS/HR; Start 09/09/18 at 14:00 Pantoprazole (Protonix Iv) 40 mg BID@06,18 IV ; Start 09/10/18 at 18:00 Polyethylene Glycol (Miralax) 17 gm DAILY PRN GTB CONSTIPATION; Start 09/10/18 at 09:30 Acetylcysteine (Mucomyst) 1 ml Q6H RESP THERAPY NEB ; Start 09/10/18 at 14:00 NELY MCCLELLAN NP Sep 10, 2018 12:22
[2018-09-10] MEDS: PANTOPRAZOLE IV 80 MG in SOD CHLORIDE 0.9% 100 ML IV SCH ×2 (12:55→21:34)
[2018-09-10] MEDS ORDERED: LACTATED RINGER'S 1,000 ML IV ONE ×3 (13:00→16:30)
--- NOTE | 2018-09-10 13:51 | PN ---
Date/Time of Note Date/Time of Note DATE: 09/10/18 TIME: 13:49 Assessment/Plan Lines/Catheters IV Catheter Type (from Nrsg): Nikko Cath Santiago in Place (from Nrsg): Yes Assessment/Plan Assessment/Plan That is post tracheostomy Trach site clean No bleeding continue vent support Trach care Vent support Subjective 24 Hr Interval Summary Constitutional: improved Pain Control: mild Exam/Review of Systems Vital Signs Vitals Vital Signs Date Temp Pulse Resp B/P (MAP) Pulse Ox O2 O2 Flow FiO2 Time Delivery Rate 09/10/18 100.8 128 35 94/46 (62) 97 [place] 12:00 l Ventilato r 09/10/18 40 11:40 09/07/18 10.0 12:00 Intake and Output 09/09/18 09/09/18 09/10/18 1515:00 23:00 07:00 IntakeIntake Total 580 ml 680 ml 570 ml OutputOutput Total 1100 ml 2080 ml 370 ml BalanceBalance -520 ml -1400 ml 200 ml Exam Eyes: nl conjunctiva, EOMI, nl lids, nl sclera ENMT: nl external ears & nose, nl lips & teeth, nl nasal mucosa & septum, mucosa pink and moist Neck: supple, non-tender Cardiovascular: regular rate and rhythm, nl pulses Musculoskeletal: nl extremities to inspection, nl gait and stance Results Result Diagram: 09/10/1843409/10/18434 TIMMY DALAL MD Sep 10, 2018 13:51
[2018-09-10] MEDS: ACETYLCYSTEINE 20% 4 ML VIAL NEB SCH ×2 (15:37→19:56)
[2018-09-10] MEDS: morphine 2 MG INJ IV PRN (17:39)
[2018-09-10] MEDS ORDERED: PANTOPRAZOLE 40 MG INJ IV SCH (18:00)
[2018-09-11] VITALS (101 sets, daily range): BP systolic 75–118; BP diastolic 31–93; PULSE 107–136; RESP 20–54
[2018-09-11] MEDS: ACETAMINOPHEN 1000MG/100ML IV 100 ML IVPB PRN ×2 (01:39→08:05)
[2018-09-11] MEDS: ACETYLCYSTEINE 20% 4 ML VIAL NEB SCH ×4 (01:48→20:10)
[2018-09-11] MEDS: ALBUTEROL HFA 8 GM INHALER INH SCH ×4 (01:48→20:10)
[2018-09-11] MEDS: CEFTAZIDIME 1GM/50 ML (PMX) 50 ML IVPB SCH (05:20)
[2018-09-11] MEDS: metroNIDAZOLE 500 MG/NS (PMX) 100 ML IVPB SCH ×3 (05:59→21:41)
[2018-09-11] MEDS: PANTOPRAZOLE IV 80 MG in SOD CHLORIDE 0.9% 100 ML IV SCH ×2 (05:59→16:35)
[2018-09-11] MEDS: IPRATROPIUM (HFA) 12.9 GM INHALER INH SCH ×3 (07:17→20:10)
[2018-09-11] MEDS: NAPHAZOLINE 0.012% 15 ML OPH BOTH EYES SCH ×4 (08:06→21:00)
--- NOTE | 2018-09-11 08:29 | CONS ---
Assessment/Plan Assessment/Plan Hospital Course (Demo Recall) 1. Acute renal failure. He continues to be anuric. He is scheduled for a hemodialysis treatment today. He is now on norepinephrine for blood pressure support. 2. Respiratory failure . He has a tracheostomy and is back on the ventilator. 3. Fever, he is being treated with broad-spectrum antibiotics. He has a fever of 101.7 this morning. Blood cultures were done. He may have leaked fluid into the peritoneum when his gastric tube became dislodged. 4. Morbid obesity 5. Encephalopathy , 6. Hypotension, he is on norepinephrine for blood pressure support. Consultation Date/Type/Reason Admit Date/Time Aug 08, 2018 at 17:18 Initial Consult Date 09/06/18 Type of Consult Nephrology Requesting Provider: TATI CARDOZA Date/Time of Note DATE: 09/11/18 TIME: 08:20 24 HR Interval Summary Free Text/Dictation This patient is being seen in the intensive care unit. He is unresponsive, with a tracheostomy and is on the ventilator. He has a fever of 101.7 and his blood pressure has dropped. Subjective hx not possible: pt non-verbal Exam/Review of Systems Exam Vitals Vital Signs Date Temp Pulse Resp B/P (MAP) Pulse Ox O2 O2 Flow FiO2 Time Delivery Rate 09/11/18 101.7 08:05 09/11/18 126 31 101/56 100 06:15 (71) 09/11/18 [place] 06:00 l Ventilato r 09/11/18 40 05:44 09/07/18 10.0 12:00 Intake and Output 09/10/18 09/10/18 09/11/18 1515:00 23:00 07:00 IntakeIntake Total 1220 ml 1280 ml 233 ml OutputOutput Total 705 ml 150 ml 600 ml BalanceBalance 515 ml 1130 ml -367 ml Constitutional: non-verbal, obese Respiratory: diminished breath sounds Cardiovascular: regular rate and rhythm Gastrointestinal: soft, distended Musculoskeletal: muscle weakness Results Result Diagram: 09/11/18 0400 09/11/18 0400 Results 24hrs Laboratory Tests Test 09/10/18 09:18 09/10/18 17:36 09/11/18 00:35 09/11/18 01:50 Prothrombin Time 19.1 H Prothrombin Time 1.5 Ratio INR International 1.60 Normalized Ratio Activated 38.7 H Partial Thromboplast Time Hemoglobin 9.1 L 9.1 L Hematocrit 31.2 L 31.6 L Urine Color RED Urine Clarity CLOUDY A Urine pH 5.0 Urine Specific 1.031 H [place] Urine Ketones NEGATIVE Urine Nitrite NEGATIVE Urine Bilirubin NEGATIVE Urine Urobilinogen NEGATIVE Urine Leukocyte 1+ H Esterase Urine Microscopic > 182 H RBC Urine Microscopic 50 H WBC Urine Bacteria FEW A Urine Hemoglobin 3+ H Urine Glucose 2+ H Urine Total Protein 2+ H Test 09/11/18 04:00 White Blood Count 28.2 H Red Blood Count 4.04 L Hemoglobin 9.5 L Hematocrit 32.4 L Mean Corpuscular 80.2 L Volume Mean Corpuscular 23.5 L Hemoglobin Mean Corpuscular 29.3 L Hemoglobin Concent Red Cell 22.2 H Distribution Width Platelet Count 268 Mean Platelet Volume 11.0 H Immature 4.200 H Granulocytes % Neutrophils % Segmented 80 H Neutrophils % (Manual) Band Neutrophils % 4 (Manual) Lymphocytes % Lymphocytes % 6 L (Manual) Monocytes % Monocytes % (Manual) 7 Eosinophils % Basophils % Metamyelocytes % 1 H (manual) Myelocytes % 1 H (Manual) Plasma Cells % 1 (manual) Nucleated Red Blood 0.1 H Cells % Immature 1.190 H Granulocytes # Neutrophils # Neutrophils # 22.9 H (Manual) Band Neutrophils # 1.1 H Lymphocytes (Manual) 1.6 Lymphocytes # Monocytes # Monocytes # (Manual) 1.9 H Eosinophils # Basophils # Metamyelocytes # 0.2 H Myelocytes # 0.2 H Plasma Cells # 0.2 H (manual) Nucleated Red Blood Cells # Platelet Estimate NORMAL Giant Platelets 2 H Platelet Morphology @See below Comment Polychromasia 2+ Hypochromasia 2+ Poikilocytosis 1+ Anisocytosis 2+ Microcytosis 1+ Macrocytosis 1+ Target Cells 1+ Sodium Level 137 Potassium Level 5.2 H Chloride Level 94 L Carbon Dioxide Level 23 Anion Gap 20 H Blood Urea Nitrogen 102 H Creatinine 6.27 H Est Glomerular 10 L Filtrat Rate mL/min Glucose Level 83 # Calcium Level 8.9 Phosphorus Level 7.8 H Total Bilirubin 1.1 Direct Bilirubin 1.00 H Indirect Bilirubin 0.1 Aspartate Amino 31 Transf (AST/SGOT) Alanine 42 Aminotransferase (AL T/SGPT) Alkaline Phosphatase 160 H Total Protein 6.4 Albumin 2.6 L Globulin 3.80 H Albumin/Globulin 0.68 Ratio Medications Medication Current Medications IV Flush (NS 3 ml) 3 ml PER PROTOCOL IV ; Start 08/08/18 at 17:30 Ondansetron HCl (Zofran Inj) 4 mg Q6H PRN IV NAUSEA; Start 08/08/18 at 17:30 Midazolam HCl 50 ml @ 1 mls/hr TITRATE IV Last administered on 08/25/18 11:49; Admin Dose 4 MLS/HR; Start 08/13/18 at 08:30 Naphazoline HCl (Clear Eyes / Naphcon) 2 drop QID BOTH EYES Last administered on 09/11/18 08:06; Admin Dose 2 DROP; Start 08/16/18 at 18:14 Acetaminophen (Tylenol Liquid) 650 mg Q6H PRN NGT MILD PAIN(1-3)OR ELEVATED TEMP Last administered on 09/07/18 00:16; Admin Dose 650 MG; Start 08/17/18 at 00:57; Status Hold Lorazepam (Ativan) 1 mg Q6H PRN IV AGITATION Last administered on 09/08/18 23:40; Admin Dose 1 MG; Start 08/28/18 at 02:30 Morphine Sulfate (morphine) 2 mg Q2H PRN IV SEVERE PAIN LEVEL 7-10 Last administered on 09/10/18 17:39; Admin Dose 2 MG; Start 08/28/18 at 09:00 Scopolamine (Transderm-Scop) 1 patch Q72H TRANSDERM Last administered on 09/09/18 12:08; Admin Dose 1 PATCH; Start 08/31/18 at 11:30 Quetiapine Fumarate (Seroquel) 25 mg BID GTB Last administered on 09/10/18 08:21; Admin Dose 25 MG; Start 09/05/18 at 21:00 Tigecycline 50 mg/ Sodium Chloride 100 ml @ 200 mls/hr Q12 IVPB Last administered on 09/10/18 21:41; Admin Dose 200 MLS/HR; Start 09/05/18 at 23:00 Ceftazidime 50 ml @ 100 mls/hr Q24H IVPB Last administered on 09/11/18 05:20; Admin Dose 100 MLS/HR; Start 09/07/18 at 06:00 Heparin Sodium (Porcine) (Heparin (5000 Units/1ml)) 5,000 unit Q12 SC Last administered on 09/10/18 21:36; Admin Dose 5,000 UNIT; Start 09/06/18 at 21:00 IV Flush (NS 10 ml) 10 ml PRN PRN IV IV PROTOCOL; Start 09/06/18 at 17:30 Albumin Human 100 ml @ 100 mls/hr DURING DIALYSIS PRN IV BLOOD PRESSURE SUPPORT Last administered on 09/07/18 18:04; Admin Dose 100 MLS/HR; Start 09/07/18 at 09:30 Norepinephrine 250 ml @ 1.875 mls/ hr TITRATE IV Last administered on 09/11/18 01:44; Admin Dose 3.75 MLS/HR; Start 09/07/18 at 12:30 Albuterol (Ventolin Hfa) 4 puff Q6H RESP THERAPY INH Last administered on 09/11/18 07:17; Admin Dose 4 PUFF; Start 09/08/18 at 09:00 Ipratropium [place] (Atrovent Hfa) 4 puff Q6HWA RESP THERAPY INH Last administered on 09/11/18 07:17; Admin Dose 4 PUFF; Start 09/08/18 at 09:00 Heparin Sodium (Porcine) (Heparin (1000 Units/ml)) 3,100 unit PRN CATHETER Last administered on 09/09/18 19:35; Admin Dose 3,100 UNIT; Start 09/08/18 at 14:00 Metronidazole 100 ml @ 100 mls/hr Q8 IVPB Last administered on 09/11/18 05:59; Admin Dose 100 MLS/HR; Start 09/09/18 at 14:00 Polyethylene Glycol (Miralax) 17 gm DAILY PRN GTB CONSTIPATION; Start 09/10/18 at 09:30 Acetylcysteine (Mucomyst) 1 ml Q6H RESP THERAPY NEB Last administered on 09/11/18 07:18; Admin Dose 1 ML; Start 09/10/18 at 14:00 Pantoprazole 80 mg/Sodium Chloride 100 ml @ 10 mls/hr Q10H IV Last administered on 09/11/18 05:59; Admin Dose 10 MLS/HR; Start 09/10/18 at 13:30 Acetaminophen 100 ml @ 400 mls/hr Q6H PRN IVPB ELEVATED TEMPERATURE Last administered on 09/11/18at 08:05; Admin Dose 400 MLS/HR; Start 09/11/18 at 01:00; Stop 09/12/18 at 00:59 LELAND HOPKINS MD Sep 11, 2018 08:29
[2018-09-11] MEDS: PHENYLephrine 80 MG in DEXTROSE 5% 242 ML IV SCH ×3 (09:00→22:06)
--- NOTE | 2018-09-11 09:18 | PN ---
Date/Time of Note Date/Time of Note DATE: 09/11/18 TIME: 08:53 Assessment/Plan VTE Prophylaxis Risk score (from Ns)>0 risk: 6 SCD applied (from Ns): No SCD contraindicated: other Pharmacological prophylaxis: heparin Lines/Catheters IV Catheter Type (from [facility]): QIUNTON Urinary Cath still in place: Yes Reason Cath still needed: urinary retention Assessment/Plan Hospital Course S: Pt with more frequent fevers in the last 24 hours, started on pressors last night. Presently getting dialysis. O: VS - see below PE: Gen: Morbidly obese man lying in bed Neck: Obese, trach, no lymphadenopathy appreciated HEENT: Clear oropharynx, moist mucous membranes Card: Sinus tach, distant heart sounds Pulm: distant lung sounds. Abd: Morbidly obese, soft, nontender Ext: Bilateral LE chronic venous stasis changes. Neuro: No focal deficits Assessment/Plan: 32yo Morbidly obese man who had presented with shortness of breath currently managed as follows: 1. Hypoxic/hypercapnic respiratory failure-Secondary to ANDREW, exacerbated by pneumonia, underlying COPD with blebs now seen on CXR-Intubated , status post trach 08/24 -Currently off the ventilator, remains in ICU due to requiring frequent suctioning and copious secretions-steroids added 09/05/18-back on vent 09/07/18 -Continue mechanical ventilation per pulmonary recommendations via trach, Mucomyst, duo nebs as needed, antibiotics -Scopolamine for secretions 2. Encephalopathy, toxic metabolic, r/o hypoxic ischemic-patient remains confused intermittently, may have suffered a brain insult, unable to get MRI or CT 08/19 weight -appreciate neurology consult, will follow recs -attempted to cut back on dosing for Seroquel, but patient is still quite confused, Switched to BID dosing -Monitor, follow-up neurology recommendations 3. Sepsis with Bilateral pneumonia-Cultures grew MDR Acinetobacter, now on inhaled colistin-CXR shows improvement in infiltrates, repeat blood cultures negative so far, urine and resp cultures pending-LE dopplers negative for DVT - continue current antibiotics: tigecycline, ceftazidime, Flagyl, follow-up ID recommendations 4. Acute renal insufficiency now started on hemodialysis -schaefer was changed to r/o obstruction 09/06/18-1st session 09/07/18, -Continue HD per renal 5. Dislodged G tube with iatrogenic fluid pocket of extravasated tube feed- Pt has a large pocket of tube feed which is either extravasated in subcutaneous fat or peritoneum. Does not look infected but this nutrient-rich media is at risk for infection- Dr. Ybarra consulted, but patient would be high risk for surgery. PEG pulled 09/09 - Consulted radiology for US-guided drainage -planning for today on this, follow-up post procedure recommendations. -For now Will maintain NPO. Patient also did have some bloody output from NG tube, for that continue PPI and when output clears up will consider to cautiously begin NG tube feeds. 6. Functional dysphagia status post PEG-Secondary to trach -See #5 7.. Chronic hypochromic anemia -stable, monitor 8. Severe Obesity-high risk for skin breakdown-appears controlled calories while on tube feeds-has lost about 40 pounds so far since admission per nursing, but much of this could be diuresis. -Continue to monitor for now 7. Debility and lethargy -PT limited by patient's mental status 8. Hyperbilirubinemia - predominantly direct, alkaline phosphatase is normal - liver USS showed diffuse fatty liver -Follow-up am labs with hepatitis screen 9. Steroid induced leucocytosis -monitor 10. Tachycardia -related to fevers-sepsis per cardio, appreciate input Poor prognosis Critical care time spent in patient care today equals 45 minutes. Result Diagram: 09/11/18 0400 09/11/18 0400 Results 24hrs Laboratory Tests Test 09/10/18 09:18 09/10/18 17:36 09/11/18 00:35 09/11/18 01:50 Prothrombin Time 19.1 H Prothrombin Time 1.5 Ratio INR International 1.60 Normalized Ratio Activated 38.7 H Partial Thromboplast Time Hemoglobin 9.1 L 9.1 L Hematocrit 31.2 L 31.6 L Urine Color RED Urine Clarity CLOUDY A Urine pH 5.0 Urine Specific 1.031 H [place] Urine Ketones NEGATIVE Urine Nitrite NEGATIVE Urine Bilirubin NEGATIVE Urine Urobilinogen NEGATIVE Urine Leukocyte 1+ H Esterase Urine Microscopic > 182 H RBC Urine Microscopic 50 H WBC Urine Bacteria FEW A Urine Hemoglobin 3+ H Urine Glucose 2+ H Urine Total Protein 2+ H Test 09/11/18 04:00 White Blood Count 28.2 H Red Blood Count 4.04 L Hemoglobin 9.5 L Hematocrit 32.4 L Mean Corpuscular 80.2 L Volume Mean Corpuscular 23.5 L Hemoglobin Mean Corpuscular 29.3 L Hemoglobin Concent Red Cell 22.2 H Distribution Width Platelet Count 268 Mean Platelet Volume 11.0 H Immature 4.200 H Granulocytes % Neutrophils % Segmented 80 H Neutrophils % (Manual) Band Neutrophils % 4 (Manual) Lymphocytes % Lymphocytes % 6 L (Manual) Monocytes % Monocytes % (Manual) 7 Eosinophils % Basophils % Metamyelocytes % 1 H (manual) Myelocytes % 1 H (Manual) Plasma Cells % 1 (manual) Nucleated Red Blood 0.1 H Cells % Immature 1.190 H Granulocytes # Neutrophils # Neutrophils # 22.9 H (Manual) Band Neutrophils # 1.1 H Lymphocytes (Manual) 1.6 Lymphocytes # Monocytes # Monocytes # (Manual) 1.9 H Eosinophils # Basophils # Metamyelocytes # 0.2 H Myelocytes # 0.2 H Plasma Cells # 0.2 H (manual) Nucleated Red Blood Cells # Platelet Estimate NORMAL Giant Platelets 2 H Platelet Morphology @See below Comment Polychromasia 2+ Hypochromasia 2+ Poikilocytosis 1+ Anisocytosis 2+ Microcytosis 1+ Macrocytosis 1+ Target Cells 1+ Sodium Level 137 Potassium Level 5.2 H Chloride Level 94 L Carbon Dioxide Level 23 Anion Gap 20 H Blood Urea Nitrogen 102 H Creatinine 6.27 H Est Glomerular 10 L Filtrat Rate mL/min Glucose Level 83 # Calcium Level 8.9 Phosphorus Level 7.8 H Total Bilirubin 1.1 Direct Bilirubin 1.00 H Indirect Bilirubin 0.1 Aspartate Amino 31 Transf (AST/SGOT) Alanine 42 Aminotransferase (AL T/SGPT) Alkaline Phosphatase 160 H Total Protein 6.4 Albumin 2.6 L Globulin 3.80 H Albumin/Globulin 0.68 Ratio Exam/Review of Systems Exam Vitals Vital Signs Date Temp Pulse Resp B/P (MAP) Pulse Ox O2 O2 Flow FiO2 Time Delivery Rate 09/11/18 101.7 08:05 09/11/18 126 31 101/56 100 06:15 (71) 09/11/18 [place] 06:00 l Ventilato r 09/11/18 40 05:44 09/07/18 10.0 12:00 Intake and Output 09/10/18 09/10/18 09/11/18 1515:00 23:00 07:00 IntakeIntake Total 1220 ml 1280 ml 233 ml OutputOutput Total 705 ml 150 ml 600 ml BalanceBalance 515 ml 1130 ml -367 ml Results Results 24hrs Laboratory Tests Test 09/10/18 09:18 09/10/18 17:36 09/11/18 00:35 09/11/18 01:50 Prothrombin Time 19.1 H Prothrombin Time 1.5 Ratio INR International 1.60 Normalized Ratio Activated 38.7 H Partial Thromboplast Time Hemoglobin 9.1 L 9.1 L Hematocrit 31.2 L 31.6 L Urine Color RED Urine Clarity CLOUDY A Urine pH 5.0 Urine Specific 1.031 H [place] Urine Ketones NEGATIVE Urine Nitrite NEGATIVE Urine Bilirubin NEGATIVE Urine Urobilinogen NEGATIVE Urine Leukocyte 1+ H Esterase Urine Microscopic > 182 H RBC Urine Microscopic 50 H WBC Urine Bacteria FEW A Urine Hemoglobin 3+ H Urine Glucose 2+ H Urine Total Protein 2+ H Test 09/11/18 04:00 White Blood Count 28.2 H Red Blood Count 4.04 L Hemoglobin 9.5 L Hematocrit 32.4 L Mean Corpuscular 80.2 L Volume Mean Corpuscular 23.5 L Hemoglobin Mean Corpuscular 29.3 L Hemoglobin Concent Red Cell 22.2 H Distribution Width Platelet Count 268 Mean Platelet Volume 11.0 H Immature 4.200 H Granulocytes % Neutrophils % Segmented 80 H Neutrophils % (Manual) Band Neutrophils % 4 (Manual) Lymphocytes % Lymphocytes % 6 L (Manual) Monocytes % Monocytes % (Manual) 7 Eosinophils % Basophils % Metamyelocytes % 1 H (manual) Myelocytes % 1 H (Manual) Plasma Cells % 1 (manual) Nucleated Red Blood 0.1 H Cells % Immature 1.190 H Granulocytes # Neutrophils # Neutrophils # 22.9 H (Manual) Band Neutrophils # 1.1 H Lymphocytes (Manual) 1.6 Lymphocytes # Monocytes # Monocytes # (Manual) 1.9 H Eosinophils # Basophils # Metamyelocytes # 0.2 H Myelocytes # 0.2 H Plasma Cells # 0.2 H (manual) Nucleated Red Blood Cells # Platelet Estimate NORMAL Giant Platelets 2 H Platelet Morphology @See below Comment Polychromasia 2+ Hypochromasia 2+ Poikilocytosis 1+ Anisocytosis 2+ Microcytosis 1+ Macrocytosis 1+ Target Cells 1+ Sodium Level 137 Potassium Level 5.2 H Chloride Level 94 L Carbon Dioxide Level 23 Anion Gap 20 H Blood Urea Nitrogen 102 H Creatinine 6.27 H Est Glomerular 10 L Filtrat Rate mL/min Glucose Level 83 # Calcium Level 8.9 Phosphorus Level 7.8 H Total Bilirubin 1.1 Direct Bilirubin 1.00 H Indirect Bilirubin 0.1 Aspartate Amino 31 Transf (AST/SGOT) Alanine 42 Aminotransferase (AL T/SGPT) Alkaline Phosphatase 160 H Total Protein 6.4 Albumin 2.6 L Globulin 3.80 H Albumin/Globulin 0.68 Ratio Medications Medication Current Medications IV Flush (NS 3 ml) 3 ml PER PROTOCOL IV ; Start 08/08/18 at 17:30 Ondansetron HCl (Zofran Inj) 4 mg Q6H PRN IV NAUSEA; Start 08/08/18 at 17:30 Midazolam HCl 50 ml @ 1 mls/hr TITRATE IV Last administered on 08/25/18 11:49; Admin Dose 4 MLS/HR; Start 08/13/18 at 08:30 Naphazoline HCl (Clear Eyes / Naphcon) 2 drop QID BOTH EYES Last administered on 09/11/18 08:06; Admin Dose 2 DROP; Start 08/16/18 at 18:14 Acetaminophen (Tylenol Liquid) 650 mg Q6H PRN NGT MILD PAIN(1-3)OR ELEVATED TEMP Last administered on 09/07/18 00:16; Admin Dose 650 MG; Start 08/17/18 at 00:57; Status Hold Lorazepam (Ativan) 1 mg Q6H PRN IV AGITATION Last administered on 09/08/18 23:40; Admin Dose 1 MG; Start 08/28/18 at 02:30 Morphine Sulfate (morphine) 2 mg Q2H PRN IV SEVERE PAIN LEVEL 7-10 Last administered on 09/10/18 17:39; Admin Dose 2 MG; Start 08/28/18 at 09:00 Scopolamine (Transderm-Scop) 1 patch Q72H TRANSDERM Last administered on 09/09/18 12:08; Admin Dose 1 PATCH; Start 08/31/18 at 11:30 Quetiapine Fumarate (Seroquel) 25 mg BID GTB Last administered on 09/10/18 08:21; Admin Dose 25 MG; Start 09/05/18 at 21:00 Tigecycline 50 mg/ Sodium Chloride 100 ml @ 200 mls/hr Q12 IVPB Last administered on 09/10/18 21:41; Admin Dose 200 MLS/HR; Start 09/05/18 at 23:00 Ceftazidime 50 ml @ 100 mls/hr Q24H IVPB Last administered on 09/11/18 05:20; Admin Dose 100 MLS/HR; Start 09/07/18 at 06:00 Heparin Sodium (Porcine) (Heparin (5000 Units/1ml)) 5,000 unit Q12 SC Last administered on 09/10/18 21:36; Admin Dose 5,000 UNIT; Start 09/06/18 at 21:00 IV Flush (NS 10 ml) 10 ml PRN PRN IV IV PROTOCOL; Start 09/06/18 at 17:30 Albumin Human 100 ml @ 100 mls/hr DURING DIALYSIS PRN IV BLOOD PRESSURE SUPPORT Last administered on 09/07/18 18:04; Admin Dose 100 MLS/HR; Start 09/07/18 at 09:30 Norepinephrine 250 ml @ 1.875 mls/ hr TITRATE IV Last administered on 09/11/18 01:44; Admin Dose 3.75 MLS/HR; Start 09/07/18 at 12:30 Albuterol (Ventolin Hfa) 4 puff Q6H RESP THERAPY INH Last administered on 09/11/18 07:17; Admin Dose 4 PUFF; Start 09/08/18 at 09:00 Ipratropium [place] (Atrovent Hfa) 4 puff Q6HWA RESP THERAPY INH Last administered on 09/11/18 07:17; Admin Dose 4 PUFF; Start 09/08/18 at 09:00 Heparin Sodium (Porcine) (Heparin (1000 Units/ml)) 3,100 unit PRN CATHETER Last administered on 09/09/18 19:35; Admin Dose 3,100 UNIT; Start 09/08/18 at 14:00 Metronidazole 100 ml @ 100 mls/hr Q8 IVPB Last administered on 09/11/18 05:59; Admin Dose 100 MLS/HR; Start 09/09/18 at 14:00 Polyethylene Glycol (Miralax) 17 gm DAILY PRN GTB CONSTIPATION; Start 09/10/18 at 09:30 Acetylcysteine (Mucomyst) 1 ml Q6H RESP THERAPY NEB Last administered on 09/11/18 07:18; Admin Dose 1 ML; Start 09/10/18 at 14:00 Pantoprazole 80 mg/Sodium Chloride 100 ml @ 10 mls/hr Q10H IV Last administered on 09/11/18at 05:59; Admin Dose 10 MLS/HR; Start 09/10/18 at 13:30 Acetaminophen 100 ml @ 400 mls/hr Q6H PRN IVPB ELEVATED TEMPERATURE Last administered on 09/11/18at 08:05; Admin Dose 400 MLS/HR; Start 09/11/18 at 01:00; Stop 09/12/18 at 00:59 RC GO Sep 11, 2018 09:03
[2018-09-11] MEDS ORDERED: PHENYLephrine 20MG IN 250 ML 250 ML IV SCH (09:30)
--- NOTE | 2018-09-11 09:52 | PN ---
Date/Time of Note Date/Time of Note DATE: 09/11/18 TIME: 09:49 Assessment/Plan Lines/Catheters IV Catheter Type (from Nrs): QIUNTON [place] in Place (from Nrs): Yes Assessment/Plan Assessment/Plan Spiked temperature last night and is now on levophed Source is likely abdominal from tube feeds. Scheduled for IR drainage today. High risk surgical candidate. If unable to place drain due to body habitus, may need to be transferred for higher level care as patient needs IR drainage. Subjective 24 Hr Interval Summary Subjective hx not possible: pt critical status Feeding: NPO Additional Comments Overnight events noted. Spiked fever and now septic on pressors per Exam/Review of Systems Vital Signs Vitals Vital Signs Date Temp Pulse Resp B/P (MAP) Pulse Ox O2 O2 Flow FiO2 Time Delivery Rate 09/11/18 125 28 99 40 09:00 09/11/18 99.8 08:50 09/11/18 101/56 06:15 (71) 09/11/18 Mechanical 06:00 Ventilator 09/07/18 10.0 12:00 Intake and Output 09/10/18 09/10/18 09/11/18 1515:00 23:00 07:00 IntakeIntake Total 1220 ml 1280 ml 233 ml OutputOutput Total 705 ml 150 ml 600 ml BalanceBalance 515 ml 1130 ml -367 ml Exam Constitutional: non-verbal Respiratory: diminished breath sounds Cardiovascular: other (tachycardic) Gastrointestinal: other (Increased tenderness to upper abdomen) Results Result Diagram: 09/11/1839909/11/18399 CHRIS BARCENAS MD Sep 11, 2018 09:52
--- NOTE | 2018-09-11 11:11 | CONS ---
Consult Date/Type/Reason Admit Date/Time Aug 08, 2018 at 17:18 Initial Consult Date 08/09/18 Type of Consult Pulmonary Requesting Provider: TATI CARDOZA Date/Time of Note DATE: 09/11/18 TIME: 11:09 Subjective Patient continues mechanical ventilation now started on vasopressor support. Still febrile requiring cooling measures. Having hemodialysis this morning. Objective Vital Signs Date Temp Pulse Resp B/P (MAP) Pulse Ox O2 O2 Flow FiO2 Time Delivery Rate 09/11/18 124 33 77/50 (59) 100 10:45 09/11/18 Mechanical 10:00 Ventilator 09/11/18 40 09:00 09/11/18 99.8 08:50 09/07/18 10.0 12:00 Intake and Output 09/10/18 09/10/18 09/11/18 1515:00 23:00 07:00 IntakeIntake Total 1220 ml 1280 ml 233 ml OutputOutput Total 705 ml 150 ml 600 ml BalanceBalance 515 ml 1130 ml -367 ml Exam GENERAL: Obese young gentleman tracheostomy on mechanical ventilation VITAL SIGNS: per chart NECK: Supple. No JVD or lymphadenopathy. CARDIAC EXAM: S1, S2. No added sounds or murmurs. CHEST: Diminished air entry bilaterally. ABDOMEN: Soft, nontender. No guarding or rebound. Decreased bowel sounds EXTREMITIES: No cyanosis, clubbing, edema +2 NEUROLOGIC: Generalized weakness. No focal deficits. Vent Setting Ventilator Support Mode: AC, VC plus Fraction of Inspired Oxygen pe: 40 Positive End Expiratory Pressu: 5.0 Results/Medications Result Diagram: 09/11/18 0400 09/11/18 0400 Results 24 hrs Laboratory Tests Test 09/10/18 17:36 09/11/18 00:35 09/11/18 01:50 09/11/18 04:00 Hemoglobin 9.1 L 9.1 L 9.5 L Hematocrit 31.2 L 31.6 L 32.4 L Urine Color RED Urine Clarity CLOUDY A Urine pH 5.0 Urine Specific 1.031 H [place] Urine Ketones NEGATIVE Urine Nitrite NEGATIVE Urine Bilirubin NEGATIVE Urine Urobilinogen NEGATIVE Urine Leukocyte 1+ H Esterase Urine Microscopic > 182 H RBC Urine Microscopic 50 H WBC Urine Bacteria FEW A Urine Hemoglobin 3+ H Urine Glucose 2+ H Urine Total Protein 2+ H White Blood Count 28.2 H Red Blood Count 4.04 L Mean Corpuscular 80.2 L Volume Mean Corpuscular 23.5 L Hemoglobin Mean Corpuscular 29.3 L Hemoglobin Concent Red Cell 22.2 H Distribution Width Platelet Count 268 Mean Platelet Volume 11.0 H Immature 4.200 H Granulocytes % Neutrophils % Segmented 80 H Neutrophils % (Manual) Band Neutrophils % 4 (Manual) Lymphocytes % Lymphocytes % 6 L (Manual) Monocytes % Monocytes % (Manual) 7 Eosinophils % Basophils % Metamyelocytes % 1 H (manual) Myelocytes % 1 H (Manual) Plasma Cells % 1 (manual) Nucleated Red Blood 0.1 H Cells % Immature 1.190 H Granulocytes # Neutrophils # Neutrophils # 22.9 H (Manual) Band Neutrophils # 1.1 H Lymphocytes (Manual) 1.6 Lymphocytes # Monocytes # Monocytes # (Manual) 1.9 H Eosinophils # Basophils # Metamyelocytes # 0.2 H Myelocytes # 0.2 H Plasma Cells # 0.2 H (manual) Nucleated Red Blood Cells # Platelet Estimate NORMAL Giant Platelets 2 H Platelet Morphology @See below Comment Polychromasia 2+ Hypochromasia 2+ Poikilocytosis 1+ Anisocytosis 2+ Microcytosis 1+ Macrocytosis 1+ Target Cells 1+ Sodium Level 137 Potassium Level 5.2 H Chloride Level 94 L Carbon Dioxide Level 23 Anion Gap 20 H Blood Urea Nitrogen 102 H Creatinine 6.27 H Est Glomerular 10 L Filtrat Rate mL/min Glucose Level 83 # Calcium Level 8.9 Phosphorus Level 7.8 H Total Bilirubin 1.1 Direct Bilirubin 1.00 H Indirect Bilirubin 0.1 Aspartate Amino 31 Transf (AST/SGOT) Alanine 42 Aminotransferase (AL T/SGPT) Alkaline Phosphatase 160 H Total Protein 6.4 Albumin 2.6 L Globulin 3.80 H Albumin/Globulin 0.68 Ratio Medications Current Medications IV Flush (NS 3 ml) 3 ml PER PROTOCOL IV ; Start 08/08/18 at 17:30 Ondansetron HCl (Zofran Inj) 4 mg Q6H PRN IV NAUSEA; Start 08/08/18 at 17:30 Midazolam HCl 50 ml @ 1 mls/hr TITRATE IV Last administered on 08/25/18at 11:49; Admin Dose 4 MLS/HR; Start 08/13/18 at 08:30 Naphazoline HCl (Clear Eyes / Naphcon) 2 drop QID BOTH EYES Last administered on 09/11/18 08:06; Admin Dose 2 DROP; Start 08/16/18 at 18:14 Acetaminophen (Tylenol Liquid) 650 mg Q6H PRN NGT MILD PAIN(1-3)OR ELEVATED TEMP Last administered on 09/07/18 00:16; Admin Dose 650 MG; Start 08/17/18 at 00:57; Status Hold Lorazepam (Ativan) 1 mg Q6H PRN IV AGITATION Last administered on 09/08/18 23:40; Admin Dose 1 MG; Start 08/28/18 at 02:30 Morphine Sulfate (morphine) 2 mg Q2H PRN IV SEVERE PAIN LEVEL 7-10 Last ad ministered on 09/10/18 17:39; Admin Dose 2 MG; Start 08/28/18 at 09:00 Scopolamine (Transderm-Scop) 1 patch Q72H TRANSDERM Last administered on 09/09/18 12:08; Admin Dose 1 PATCH; Start 08/31/18 at 11:30 Quetiapine Fumarate (Seroquel) 25 mg BID GTB Last administered on 09/10/18 08:21; Admin Dose 25 MG; Start 09/05/18 at 21:00 Tigecycline 50 mg/ Sodium Chloride 100 ml @ 200 mls/hr Q12 IVPB Last administered on 09/10/18 21:41; Admin Dose 200 MLS/HR; Start 09/05/18 at 23:00 Ceftazidime 50 ml @ 100 mls/hr Q24H IVPB Last administered on 09/11/18 05:20; Admin Dose 100 MLS/HR; Start 09/07/18 at 06:00 Heparin Sodium (Porcine) (Heparin (5000 Units/1ml)) 5,000 unit Q12 SC Last administered on 09/10/18 21:36; Admin Dose 5,000 UNIT; Start 09/06/18 at 21:00; Status Hold IV Flush (NS 10 ml) 10 ml PRN PRN IV IV PROTOCOL; Start 09/06/18 at 17:30 Albumin Human 100 ml @ 100 mls/hr DURING DIALYSIS PRN IV BLOOD PRESSURE SUPPORT Last administered on 09/07/18 18:04; Admin Dose 100 MLS/HR; Start 09/07/18 at 09:30 Albuterol (Ventolin Hfa) 4 puff Q6H RESP THERAPY INH Last administered on 09/11/18 07:17; Admin Dose 4 PUFF; Start 09/08/18 at 09:00 Ipratropium [place] (Atrovent Hfa) 4 puff Q6HWA RESP THERAPY INH Last administered on 09/11/18 07:17; Admin Dose 4 PUFF; Start 09/08/18 at 09:00 Heparin Sodium (Porcine) (Heparin (1000 Units/ml)) 3,100 unit PRN CATHETER Last administered on 09/09/18 19:35; Admin Dose 3,100 UNIT; Start 09/08/18 at 14:00 Metronidazole 100 ml @ 100 mls/hr Q8 IVPB Last administered on 09/11/18 05:59; Admin Dose 100 MLS/HR; Start 09/09/18 at 14:00 Polyethylene Glycol (Miralax) 17 gm DAILY PRN GTB CONSTIPATION; Start 09/10/18 at 09:30 Acetylcysteine (Mucomyst) 1 ml Q6H RESP THERAPY NEB Last administered on 09/11/18 07:18; Admin Dose 1 ML; Start 09/10/18 at 14:00 Pantoprazole 80 mg/Sodium Chloride 100 ml @ 10 mls/hr Q10H IV Last administere d on 09/11/18 05:59; Admin Dose 10 MLS/HR; Start 09/10/18 at 13:30 Acetaminophen 100 ml @ 400 mls/hr Q6H PRN IVPB ELEVATED TEMPERATURE Last administered on 09/11/18 08:05; Admin Dose 400 MLS/HR; Start 09/11/18 at 01:00; Stop 09/12/18 at 00:59 Phenylephrine HCl 80 mg/Dextrose 250 ml @ 18.75 mls/ hr TITRATE IV ; Start 09/11/18 at 12:00 Phenylephrine HCl 250 ml @ 0 mls/hr TITRATE IV ; Start 09/11/18 at 09:30; Stop 09/11/18 at 11:59 Assessment/Plan Hospital Course (Demo Recall) IMP: 1. Acute on chronic hypoxemic and hypercapnic respiratory failure, failed mu ltiple weaning trials status post tracheostomy. Significant secretions, 2. G-tube was misplaced with tube feeding and abdominal cavity. 3. History of obesity hypoventilation syndrome and probable obstructive sleep apnea 4. Leukocytosis With ongoing fevers and persistent diarrhea. 5. Acute renal failure. Now on hemodialysis 6. Small bowel obstruction with septic shock RECS: 1. Continue AC mechanical ventilation for now not for weaning. And Mucomyst for increased secretions 2. Continue ID recommendations 3. GI recommendations regarding removal of tube feed in abdominal cavity 4. Acute renal failure continue hemodialysis per nephrology 5. Surgery recommendations with ongoing small bowel obstruction. 6. Septic shock secondary to resistant organism noted. ID recommendations Prognosis guarded 40 min cc time Discussed with staff at length. JULIETH PUENTE MD, [facility] Sep 11, 2018 11:10
[2018-09-11] MEDS: HEPARIN 1000 UNITS/ML 10 ML INJ CATHETER SCH (11:17)
[2018-09-11] MEDS: QUETIAPINE 25 MG TAB GTB SCH ×2 (13:15→21:41)
[2018-09-11] MEDS: TIGECYCLINE 50 MG in SOD CHLORIDE 0.9% 100 ML IVPB SCH ×2 (13:15→21:41)
[2018-09-11] MEDS: BALSAM PERU/CASTOR OIL 60 GM TUBE TOP SCH ×2 (13:18→21:41)
[2018-09-11] MEDS ORDERED: SOD CHLORIDE 0.9% 500 ML ONE (13:26)
[2018-09-11] MEDS ORDERED: LIDOCAINE 1% (MPF) 5 ML VIAL ONE (13:26)
--- NOTE | 2018-09-11 14:25 | CONS ---
Assessment/Plan Assessment/Plan Hospital Course (Demo Recall) No acute events overnight. Patient is status post hemodialysis this morning, he is on David-Synephrine drip, spiking fevers. He is draining large amount of fluid from his G-tube site. T-max 101.8. WBC 28.2 H&H 9.8 and 34.6 platelets 268 BUN 102 creatinine 6.27 Microbiology: Blood cultures remain negative since admission sputum culture growing Acinetobacter Shahrzad and Proteus mirabilis. Abdominal drainage culture growing enterococcus Indwelling: Trach PEG right femoral Nikko left upper extremity PICC line Antimicrobials: Tygacil, Fortaz Diagnostics: Abdominal ultrasound showed 18.3 x 10.9 cm mainly cystic structure in the left upper quadrant with questionable solid component versus diabetes concerning for abscess Physical examination: This is a morbidly obese well-developed middle-aged man who lethargic, in no distress. Head atraumatic normocephalic, neck is obese, tracheostomy present. Chest rise symmetrical breath sounds diminished. Heart: S1-S2, tachycardic. Abdomen obese, distended, patient has a large amount of drainage from G-tube site, bowel sounds hypoactive. Extremities with edema Assessment: 1. Severe sepsis with shock 2. Large intra-abdominal abscess secondary to #3 3. G-tube displacement, status post discontinued 4. Acute hypoxemic respiratory failure status post tracheostomy 5. Acute kidney failure, started on hemodialysis 6. Status post pneumonia 7. Morbid obesity 4. Sleep apnea with hypoventilation syndrome Plan: Remains hemodynamically unstable, add Flagyl for anaerobic coverage, continue antibiotics, follow final cultures of abdominal fluid, surgical recommendations noted, pending IR drainage DEBORAH RN Consultation Date/Type/Reason Admit Date/Time Aug 08, 2018 at 17:18 Initial Consult Date 08/09/18 Type of Consult ID Requesting Provider: TATI CARDOZA Date/Time of Note DATE: 09/11/18 TIME: 14:20 Exam/Review of Systems Exam Vitals Vital Signs Date Temp Pulse Resp B/P (MAP) Pulse Ox O2 O2 Flow FiO2 Time Delivery Rate 09/11/18 114 28 91/47 (62) 97 13:30 09/11/18 40 13:10 09/11/18 Mechanical 13:00 Ventilator 09/11/18 98.8 12:00 09/07/18 10.0 12:00 Intake and Output 09/10/18 09/10/18 09/11/18 1515:00 23:00 07:00 IntakeIntake Total 1220 ml 1280 ml 233 ml OutputOutput Total 705 ml 150 ml 600 ml BalanceBalance 515 ml 1130 ml -367 ml Results Result Diagram: 09/11/18 1226 09/11/18 0400 Results 24hrs Laboratory Tests Test 09/10/18 17:36 09/11/18 00:35 09/11/18 01:50 09/11/18 04:00 Hemoglobin 9.1 L 9.1 L 9.5 L Hematocrit 31.2 L 31.6 L 32.4 L Urine Color RED Urine Clarity CLOUDY A Urine pH 5.0 Urine Specific 1.031 H [place] Urine Ketones NEGATIVE Urine Nitrite NEGATIVE Urine Bilirubin NEGATIVE Urine Urobilinogen NEGATIVE Urine Leukocyte 1+ H Esterase Urine Microscopic > 182 H RBC Urine Microscopic 50 H WBC Urine Bacteria FEW A Urine Hemoglobin 3+ H Urine Glucose 2+ H Urine Total Protein 2+ H White Blood Count 28.2 H Red Blood Count 4.04 L Mean Corpuscular 80.2 L Volume Mean Corpuscular 23.5 L Hemoglobin Mean Corpuscular 29.3 L Hemoglobin Concent Red Cell 22.2 H Distribution Width Platelet Count 268 Mean Platelet Volume 11.0 H Immature 4.200 H Granulocytes % Neutrophils % Segmented 80 H Neutrophils % (Manual) Band Neutrophils % 4 (Manual) Lymphocytes % Lymphocytes % 6 L (Manual) Monocytes % Monocytes % (Manual) 7 Eosinophils % Basophils % Metamyelocytes % 1 H (manual) Myelocytes % 1 H (Manual) Plasma Cells % 1 (manual) Nucleated Red Blood 0.1 H Cells % Immature 1.190 H Granulocytes # Neutrophils # Neutrophils # 22.9 H (Manual) Band Neutrophils # 1.1 H Lymphocytes (Manual) 1.6 Lymphocytes # Monocytes # Monocytes # (Manual) 1.9 H Eosinophils # Basophils # Metamyelocytes # 0.2 H Myelocytes # 0.2 H Plasma Cells # 0.2 H (manual) Nucleated Red Blood Cells # Platelet Estimate NORMAL Giant Platelets 2 H Platelet Morphology @See below Comment Polychromasia 2+ Hypochromasia 2+ Poikilocytosis 1+ Anisocytosis 2+ Microcytosis 1+ Macrocytosis 1+ Target Cells 1+ Sodium Level 137 Potassium Level 5.2 H Chloride Level 94 L Carbon Dioxide Level 23 Anion Gap 20 H Blood Urea Nitrogen 102 H Creatinine 6.27 H Est Glomerular 10 L Filtrat Rate mL/min Glucose Level 83 # Calcium Level 8.9 Phosphorus Level 7.8 H Total Bilirubin 1.1 Direct Bilirubin 1.00 H Indirect Bilirubin 0.1 Aspartate Amino 31 Transf (AST/SGOT) Alanine 42 Aminotransferase (AL T/SGPT) Alkaline Phosphatase 160 H Total Protein 6.4 Albumin 2.6 L Globulin 3.80 H Albumin/Globulin 0.68 Ratio Test 09/11/18 12:26 Hemoglobin 9.8 L Hematocrit 34.6 L Medications Medication Current Medications IV Flush (NS 3 ml) 3 ml PER PROTOCOL IV ; Start 08/08/18 at 17:30 Ondansetron HCl (Zofran Inj) 4 mg Q6H PRN IV NAUSEA; Start 08/08/18 at 17:30 Midazolam HCl 50 ml @ 1 mls/hr TITRATE IV Last administered on 08/25/18 11:49; Admin Dose 4 MLS/HR; Start 08/13/18 at 08:30 Naphazoline HCl (Clear Eyes / Naphcon) 2 drop QID BOTH EYES Last administered on 09/11/18 13:17; Admin Dose 2 DROP; Start 08/16/18 at 18:14 Acetaminophen (Tylenol Liquid) 650 mg Q6H PRN NGT MILD PAIN(1-3)OR ELEVATED TEMP Last administered on 09/07/18at 00:16; Admin Dose 650 MG; Start 08/17/18 at 00:57; Status Hold Lorazepam (Ativan) 1 mg Q6H PRN IV AGITATION Last administered on 09/08/18at 23:40; Admin Dose 1 MG; Start 08/28/18 at 02:30 Morphine Sulfate (morphine) 2 mg Q2H PRN IV SEVERE PAIN LEVEL 7-10 Last administered on 09/10/18 17:39; Admin Dose 2 MG; Start 08/28/18 at 09:00 Scopolamine (Transderm-Scop) 1 patch Q72H TRANSDERM Last administered on 09/09/18 12:08; Admin Dose 1 PATCH; Start 08/31/18 at 11:30 Quetiapine Fumarate (Seroquel) 25 mg BID GTB Last administered on 09/11/18 13:15; Admin Dose 25 MG; Start 09/05/18 at 21:00 Tigecycline 50 mg/ Sodium Chloride 100 ml @ 200 mls/hr Q12 IVPB Last admini stered on 09/11/18 13:15; Admin Dose 200 MLS/HR; Start 09/05/18 at 23:00 Ceftazidime 50 ml @ 100 mls/hr Q24H IVPB Last administered on 09/11/18 05:20; Admin Dose 100 MLS/HR; Start 09/07/18 at 06:00 Heparin Sodium (Porcine) (Heparin (5000 Units/1ml)) 5,000 unit Q12 SC Last administered on 09/10/18 21:36; Admin Dose 5,000 UNIT; Start 09/06/18 at 21:00; Status Hold IV Flush (NS 10 ml) 10 ml PRN PRN IV IV PROTOCOL; Start 09/06/18 at 17:30 Albumin Human 100 ml @ 100 mls/hr DURING DIALYSIS PRN IV BLOOD PRESSURE SUPPORT Last administered on 09/07/18 18:04; Admin Dose 100 MLS/HR; Start 09/07/18 at 09:30 Albuterol (Ventolin Hfa) 4 puff Q6H RESP THERAPY INH Last administered on 09/11/18 12:57; Admin Dose 4 PUFF; Start 09/08/18 at 09:00 Ipratropium [place] (Atrovent Hfa) 4 puff Q6HWA RESP THERAPY INH Last administered on 09/11/18 12:57; Admin Dose 4 PUFF; Start 09/08/18 at 09:00 Heparin Sodium (Porcine) (Heparin (1000 Units/ml)) 3,100 unit PRN CATHETER Last administered on 09/11/18 11:17; Admin Dose 3,100 UNIT; Start 09/08/18 at 14:00 Metronidazole 100 ml @ 100 mls/hr Q8 IVPB Last administered on 09/11/18 13:15; Admin Dose 100 MLS/HR; Start 09/09/18 at 14:00 Polyethylene Glycol (Miralax) 17 gm DAILY PRN GTB CONSTIPATION; Start 09/10/18 at 09:30 Acetylcysteine (Mucomyst) 1 ml Q6H RESP THERAPY NEB Last administered on 09/11/18 12:57; Admin Dose 1 ML; Start 2/24/19 at 14:00 Pantoprazole 80 mg/Sodium Chloride 100 ml @ 10 mls/hr Q10H IV Last administered on 09/11/18at 05:59; Admin Dose 10 MLS/HR; Start 09/10/18 at 13:30 Acetaminophen 100 ml @ 400 mls/hr Q6H PRN IVPB ELEVATED TEMPERATURE Last administered on 09/11/18at 08:05; Admin Dose 400 MLS/HR; Start 09/11/18 at 01:00; Stop 09/12/18 at 00:59 Phenylephrine HCl 80 mg/Dextrose 250 ml @ 18.75 mls/ hr TITRATE IV Last administered on 09/11/18at 09:00; Admin Dose 3.75 MLS/HR; Start 09/11/18 at 12:00 JOCELYN VILLALTA NP Sep 11, 2018 14:25
[2018-09-11] MEDS ORDERED: metroNIDAZOLE 500 MG/NS (PMX) 100 ML IVPB SCH (14:30)
--- NOTE | 2018-09-11 14:53 | HPN ---
Date/Time of Note Date/Time of Note DATE: 09/11/18 TIME: 14:53 Interval H&P Admission Note Pt. seen H&P reviewed: No system changes APOLINAR JOHN MD Sep 11, 2018 14:53
--- NOTE | 2018-09-11 15:31 | CONS ---
Assessment/Plan Assessment/Plan Hospital Course 32 yo morbidly obese male with multiple comorbidities who is admitted to the [facility] ICU for management of acute respiratory failure...now s/p trach He is noted to be protractedly encephalopathic, for which neurology is consulted. PNA+ MARTINE worsening On daily iv steroids, which likely precipitate/exacerbate psychosis Receiving multiple psychotropics.. Most clinically consistent with an acute and multifactorial toxic-metabolic encephalopathy. A focal FIRST MATE process is less likely. Patient's body habitus is reportedly not amendable to neuroimaging P: [place] as necessary Wean steroids as soon as able Agree w/ low dose seroquel prn in the short-term, to be titrated to effect PT/OT/ST when able to participate Other medical management per primary Will follow clinically Consultation Date/Type/Reason Admit Date/Time Aug 08, 2018 at 17:18 Type of Consult Neurology Reason for Consultation encephalopathy Requesting Provider: TATI CARDOZA Date/Time of Note DATE: 09/11/18 TIME: 15:30 24 HR Interval Summary Subjective hx not possible: pt non-verbal Exam Vital Signs Vitals Vital Signs Date Temp Pulse Resp B/P (MAP) Pulse Ox O2 O2 Flow FiO2 Time Delivery Rate 09/11/18 114 28 91/47 (62) 97 13:30 09/11/18 40 13:10 09/11/18 Mechanical 13:00 Ventilator 09/11/18 98.8 12:00 09/07/18 10.0 12:00 Intake and Output 09/10/18 09/10/18 09/11/18 1515:00 23:00 07:00 IntakeIntake Total 1220 ml 1280 ml 233 ml OutputOutput Total 705 ml 150 ml 600 ml BalanceBalance 515 ml 1130 ml -367 ml ARSENIO MAXWELL NP Sep 11, 2018 15:31 RAYMOND HERNANDEZ Sep 11, 2018 16:29
--- NOTE | 2018-09-11 16:57 | PREAC ---
Date/Time of Note Date/Time of Note DATE: 09/11/18 TIME: 16:54 Anesthesia Eval and Record Evaluation Time Pre-Procedure Interview DATE: 09/11/18 TIME: 16:54 Age 32 Sex male NPO: 8 hrs Preoperative diagnosis UPPER GI BLEEDING Planned procedure EGD Past Medical History Past Medical History: Includes Endo: Other (oh SYN) Pulm: COPD, Other (RES FAILURE) Renal: ESRD on dialysis, HD last: (TODAY) GI: Morbid obesity Surgery & Anesthesia Issues No known issue Meds Anticoagulation: No Beta Sherry within 24 hr: No Reason Beta Sherry not given: Pt. not on B-Sherry No Active Prescriptions or Reported Meds Current Medications IV Flush (NS 3 ml) 3 ml PER PROTOCOL IV ; Start 08/08/18 at 17:30 Ondansetron HCl (Zofran Inj) 4 mg Q6H PRN IV NAUSEA; Start 08/08/18 at 17:30 Midazolam HCl 50 ml @ 1 mls/hr TITRATE IV Last administered on 08/25/18at 11:49; Admin Dose 4 MLS/HR; Start 08/13/18 at 08:30 Naphazoline HCl (Clear Eyes / Naphcon) 2 drop QID BOTH EYES Last administered on 09/11/18at 16:39; Admin Dose 2 DROP; Start 08/16/18 at 18:14 Acetaminophen (Tylenol Liquid) 650 mg Q6H PRN NGT MILD PAIN(1-3)OR ELEVATED TEMP Last administered on 09/07/18at 00:16; Admin Dose 650 MG; Start 08/17/18 at 00:57; Status Hold Lorazepam (Ativan) 1 mg Q6H PRN IV AGITATION Last administered on 09/08/18at 23:40; Admin Dose 1 MG; Start 08/28/18 at 02:30 Morphine Sulfate (morphine) 2 mg Q2H PRN IV SEVERE PAIN LEVEL 7-10 Last administered on 09/10/18at 17:39; Admin Dose 2 MG; Start 08/28/18 at 09:00 Scopolamine (Transderm-Scop) 1 patch Q72H TRANSDERM Last administered on 9at 12:08; Admin Dose 1 PATCH; Start 08/31/18 at 11:30 Quetiapine Fumarate (Seroquel) 25 mg BID GTB Last administered on 09/11/18at 13:15; Admin Dose 25 MG; Start 09/05/18 at 21:00 Tigecycline 50 mg/ Sodium Chloride 100 ml @ 200 mls/hr Q12 IVPB Last administered on 09/11/18 13:15; Admin Dose 200 MLS/HR; Start 09/05/18 at 23:00 Ceftazidime 50 ml @ 100 mls/hr Q24H IVPB Last administered on 09/11/18 05:20; Admin Dose 100 MLS/HR; Start 09/07/18 at 06:00 Heparin Sodium (Porcine) (Heparin (5000 Units/1ml)) 5,000 unit Q12 SC Last administered on 09/10/18 21:36; Admin Dose 5,000 UNIT; Start 09/06/18 at 21:00; Status Hold IV Flush (NS 10 ml) 10 ml PRN PRN IV IV PROTOCOL; Start 09/06/18 at 17:30 Albumin Human 100 ml @ 100 mls/hr DURING DIALYSIS PRN IV BLOOD PRESSURE SUPPORT Last administered on 09/07/18 18:04; Admin Dose 100 MLS/HR; Start 09/07/18 at 09:30 Albuterol (Ventolin Hfa) 4 puff Q6H RESP THERAPY INH Last administered on 09/11/18 12:57; Admin Dose 4 PUFF; Start 09/08/18 at 09:00 Ipratropium [place] (Atrovent Hfa) 4 puff Q6HWA RESP THERAPY INH Last administered on 09/11/18 12:57; Admin Dose 4 PUFF; Start 09/08/18 at 09:00 Heparin Sodium (Porcine) (Heparin (1000 Units/ml)) 3,100 unit PRN CATHETER Last administered on 09/11/18 11:17; Admin Dose 3,100 UNIT; Start 09/08/18 at 14:00 Metronidazole 100 ml @ 100 mls/hr Q8 IVPB Last administered on 09/11/18 13:15; Admin Dose 100 MLS/HR; Start 09/09/18 at 14:00 Polyethylene Glycol (Miralax) 17 gm DAILY PRN GTB CONSTIPATION; Start 09/10/18 at 09:30 Acetylcysteine (Mucomyst) 1 ml Q6H RESP THERAPY NEB Last administered on 09/11/18 12:57; Admin Dose 1 ML; Start 09/10/18 at 14:00 Pantoprazole 80 mg/Sodium Chloride 100 ml @ 10 mls/hr Q10H IV Last administered on 09/11/18at 16:35; Admin Dose 10 MLS/HR; Start 09/10/18 at 13:30 Acetaminophen 100 ml @ 400 mls/hr Q6H PRN IVPB ELEVATED TEMPERATURE Last administered on 09/11/18at 08:05; Admin Dose 400 MLS/HR; Start 09/11/18 at 01:00; Stop 09/12/18 at 00:59 Phenylephrine HCl 80 mg/Dextrose 250 ml @ 18.75 mls/ hr TITRATE IV Last administered on 09/11/18at 16:37; Admin Dose 43.13 MLS/HR; Start 09/11/18 at 12:00 Meds reviewed: Yes Allergies Coded Allergies: No Known Drug Allergies (Verified Allergy, Mild, 08/30/18) Allergies Reviewed: Yes Labs/Studies Labs Reviewed: Reviewed by anesthesiologist Result Diagram: 09/11/18 1226 09/11/18 0400 Laboratory Tests 09/11/18 04:00 09/11/18 12:26 test: N/A Studies: ECG (N/A), CXR (SEE REPORT) Pre-procedure Exam Last vitals Vital Signs Date Temp Pulse Resp B/P (MAP) Pulse Ox O2 O2 Flow FiO2 Time Delivery Rate 09/11/18 118 33 97 40 16:35 09/11/18 91/47 (62) 13:30 09/11/18 Mechanical 13:00 Ventilator 09/11/18 98.8 12:00 09/07/18 10.0 12:00 Airway: Adequate mouth opening Mallampati: Mallampati IV Teeth: Abnormal (ON TRACH) Lung: Normal Heart: Normal ASA Physical Status ASA physical status: 3 Emergency: None Planned Anesthetic General/MAC: MAC Planned Pain Management Parenteral pain med Pre-operative Attestations Prior to commencing anesthesia and surgery, the patient was re-evaluated, there was verification of: *The patient's identity *The results of appropriate recent lab work and preoperative vital signs *The above evaluation not changing prior to induction *Anesthetic plan, risk benefits, alternative and complications discussed with patient/family; questions answered; patient/family understands, accepts and wishes to proceed. JOELLE SMITH MD Sep 11, 2018 16:57
--- NOTE | 2018-09-11 17:00 | HPN ---
Date/Time of Note Date/Time of Note DATE: 09/11/18 TIME: 17:00 Interval H&P Admission Note Pt. seen H&P reviewed: No system changes ADILIA BENITO Sep 11, 2018 17:00
[2018-09-11 18:27] LABS: PTH CALCIUM 9.6 mg/dL (8.6-10.3)
[2018-09-11] MEDS ORDERED: FLUCONAZOLE 400 MG/NS (PMX) 200 ML IVPB SCH (20:00)
[2018-09-12] VITALS (105 sets, daily range): BP systolic 59–144; BP diastolic 26–113; PULSE 92–127; RESP 19–35
[2018-09-12] MEDS: PANTOPRAZOLE IV 80 MG in SOD CHLORIDE 0.9% 100 ML IV SCH ×3 (01:45→23:18)
[2018-09-12] MEDS: ACETYLCYSTEINE 20% 4 ML VIAL NEB SCH ×4 (02:25→20:39)
[2018-09-12] MEDS: ALBUTEROL HFA 8 GM INHALER INH SCH ×4 (02:25→20:38)
[2018-09-12] MEDS: PHENYLephrine 80 MG in DEXTROSE 5% 242 ML IV SCH ×5 (02:45→23:21)
[2018-09-12] MEDS: CEFTAZIDIME 1GM/50 ML (PMX) 50 ML IVPB SCH (05:32)
[2018-09-12] MEDS: metroNIDAZOLE 500 MG/NS (PMX) 100 ML IVPB SCH (05:53)
[2018-09-12] MEDS: IPRATROPIUM (HFA) 12.9 GM INHALER INH SCH ×3 (07:27→20:38)
[2018-09-12] MEDS: QUETIAPINE 25 MG TAB GTB SCH (07:41)
[2018-09-12] MEDS: ACETAMINOPHEN 650MG/20.3ML CUP NGT PRN ×2 (07:41→16:12)
[2018-09-12] MEDS: BALSAM PERU/CASTOR OIL 60 GM TUBE TOP SCH ×2 (07:44→21:51)
[2018-09-12] MEDS: TIGECYCLINE 50 MG in SOD CHLORIDE 0.9% 100 ML IVPB SCH (07:44)
[2018-09-12] MEDS: NAPHAZOLINE 0.012% 15 ML OPH BOTH EYES SCH ×4 (07:44→21:51)
--- NOTE | 2018-09-12 08:33 | CONS ---
Assessment/Plan Assessment/Plan Hospital Course (Demo Recall) 1. Acute renal failure. He continues to be anuric. He is scheduled for a hemodialysis treatment tomorrow. He is now on norepinephrine for blood pressure support. 2. Respiratory failure . He has a tracheostomy and is back on the ventilator. 3. Fever, he is being treated with broad-spectrum antibiotics. He has a fever of 101.2 this morning. Blood cultures were done. He leaked fluid into the peritoneum when his gastric tube became dislodged . He had a fluid-filled collection in his abdomen which was drained yesterday by the radiologist. He does have a tube left in place to continue draining. 4. Morbid obesity 5. Encephalopathy , 6. Hypotension, he is on norepinephrine for blood pressure support. 7. [place]inda esophagitis, he is on fluconazole Consultation Date/Type/Reason Admit Date/Time Aug 08, 2018 at 17:18 Initial Consult Date 09/06/18 Type of Consult Nephrology Requesting Provider: TATI CARDOZA Date/Time of Note DATE: 09/12/18 TIME: 08:27 24 HR Interval Summary Free Text/Dictation This patient is being seen in nephrologic follow-up. He is in the intensive care unit. He has a tracheostomy and is on a ventilator. He is unresponsive. Subjective hx not possible: pt non-verbal Exam/Review of Systems Exam Vitals Vital Signs Date Temp Pulse Resp B/P (MAP) Pulse Ox O2 O2 Flow FiO2 Time Delivery Rate 09/12/18 101.2 07:41 09/12/18 118 31 100 40 07:23 09/12/18 91/55 (67) 06:15 09/12/18 Mechan[place] 06:00 l Ventilato r Intake and Output 09/11/18 09/11/18 09/12/18 1515:00 23:00 07:00 IntakeIntake Total 608.02 ml 571.91 ml 421.91 ml OutputOutput Total 950 ml 390 ml 185 ml BalanceBalance -341.98 ml 181.91 ml 236.91 ml Constitutional: non-verbal ENMT: intubated Respiratory: diminished breath sounds Cardiovascular: regular rate and rhythm Gastrointestinal: soft Musculoskeletal: nl extremities to inspection Results Result Diagram: 09/12/18 0400 09/12/18 0400 Results 24hrs Laboratory Tests Test 09/11/18 12:26 09/11/18 18:01 09/12/18 00:31 09/12/18 04:00 Hemoglobin 9.8 L 9.2 L 9.0 L 9.3 L Hematocrit 34.6 L 32.7 L 31.6 L 32.5 L Sodium Level 136 Potassium Level 5.1 Chloride Level 95 L Carbon Dioxide Level 22 Anion Gap 19 H Blood Urea Nitrogen 85 H Creatinine 5.94 H Est Glomerular 11 L Filtrat Rate mL/min Glucose Level 60 #L Calcium Level 8.6 Phosphorus Level 7.9 H Magnesium Level 2.0 Total Bilirubin 0.5 Direct Bilirubin 0.40 #H Indirect Bilirubin 0.1 Aspartate Amino 41 Transf (AST/SGOT) Alanine 41 Aminotransferase (AL T/SGPT) Alkaline Phosphatase 160 H Total Protein 6.2 Albumin 2.5 L Globulin 3.70 H Albumin/Globulin 0.67 Ratio Medications Medication Current Medications IV Flush (NS 3 ml) 3 ml PER PROTOCOL IV ; Start 08/08/18 at 17:30 Ondansetron HCl (Zofran Inj) 4 mg Q6H PRN IV NAUSEA; Start 08/08/18 at 17:30 Midazolam HCl 50 ml @ 1 mls/hr TITRATE IV Last administered on 08/25/18 11:49; Admin Dose 4 MLS/HR; Start 08/13/18 at 08:30 Naphazoline HCl (Clear Eyes / Naphcon) 2 drop QID BOTH EYES Last administered on 09/12/18 07:44; Admin Dose 2 DROP; Start 08/16/18 at 18:14 Acetaminophen (Tylenol Liquid) 650 mg Q6H PRN NGT MILD PAIN(1-3)OR ELEVATED TEMP Last administered on 09/12/18at 07:41; Admin Dose 650 MG; Start 08/17/18 at 00:57 Lorazepam (Ativan) 1 mg Q6H PRN IV AGITATION Last administered on 09/08/18 23:40; Admin Dose 1 MG; Start 08/28/18 at 02:30 Morphine Sulfate (morphine) 2 mg Q2H PRN IV SEVERE PAIN LEVEL 7-10 Last administered on 09/10/18 17:39; Admin Dose 2 MG; Start 08/28/18 at 09:00 Scopolamine (Transderm-Scop) 1 patch Q72H TRANSDERM Last administered on 09/09/18 12:08; Admin Dose 1 PATCH; Start 08/31/18 at 11:30 Quetiapine Fumarate (Seroquel) 25 mg BID GTB Last administered on 09/12/18 07:41; Admin Dose 25 MG; Start 09/05/18 at 21:00 Tigecycline 50 mg/ Sodium Chloride 100 ml @ 200 mls/hr Q12 IVPB Last administered on 09/12/18 07:44; Admin Dose 200 MLS/HR; Start 09/05/18 at 23:00 Ceftazidime 50 ml @ 100 mls/hr Q24H IVPB Last administered on 09/12/18 05:32; Admin Dose 100 MLS/HR; Start 09/07/18 at 06:00 Heparin Sodium (Porcine) (Heparin (5000 Units/1ml)) 5,000 unit Q12 SC Last administered on 09/10/18 21:36; Admin Dose 5,000 UNIT; Start 09/06/18 at 21:00; Status Hold IV Flush (NS 10 ml) 10 ml PRN PRN IV IV PROTOCOL; Start 09/06/18 at 17:30 Albumin Human 100 ml @ 100 mls/hr DURING DIALYSIS PRN IV BLOOD PRESSURE SUPPORT Last administered on 09/07/18 18:04; Admin Dose 100 MLS/HR; Start 09/07/18 at 09:30 Albuterol (Ventolin Hfa) 4 puff Q6H RESP THERAPY INH Last administered on 09/12/18 07:27; Admin Dose 4 PUFF; Start 09/08/18 at 09:00 Ipratropium [place] (Atrovent Hfa) 4 puff Q6HWA RESP THERAPY INH Last administered on 09/12/18 07:27; Admin Dose 4 PUFF; Start 09/08/18 at 09:00 Heparin Sodium (Porcine) (Heparin (1000 Units/ml)) 3,100 unit PRN CATHETER Last administered on 09/11/18 11:17; Admin Dose 3,100 UNIT; Start 09/08/18 at 14:00 Metronidazole 100 ml @ 100 mls/hr Q8 IVPB Last administered on 09/12/18 05:53; Admin Dose 100 MLS/HR; Start 09/09/18 at 14:00 Polyethylene Glycol (Miralax) 17 gm DAILY PRN GTB CONSTIPATION; Start 09/10/18 at 09:30 Acetylcysteine (Mucomyst) 1 ml Q6H RESP THERAPY NEB Last administered on 09/12/18at 08:10; Admin Dose 1 ML; Start 09/10/18 at 14:00 Pantoprazole 80 mg/Sodium Chloride 100 ml @ 10 mls/hr Q10H IV Last administe red on 09/12/18at 01:45; Admin Dose 10 MLS/HR; Start 09/10/18 at 13:30 Phenylephrine HCl 80 mg/Dextrose 250 ml @ 18.75 mls/ hr TITRATE IV Last administered on 09/12/18at 02:45; Admin Dose 43.13 MLS/HR; Start 09/11/18 at 12:00 Fluconazole 200 ml @ 100 mls/hr Q24H IVPB Last administered on 09/11/18at 20:13; Admin Dose 100 MLS/HR; Start 09/11/18 at 20:00 LELAND HOPKINS MD Sep 12, 2018 08:33
--- NOTE | 2018-09-12 09:07 | PAC ---
Date/Time of Note Date/Time of Note DATE: 09/12/18 TIME: 09:05 Post-Anesthesia Notes Post-Anesthesia Note Last documented vital signs Vital Signs Date Temp Pulse Resp B/P (MAP) Pulse Ox O2 O2 Flow FiO2 Time Delivery Rate 09/12/18 101.2 07:41 09/12/18 118 31 100 40 07:23 09/12/18 101.2 117 31 91/55 (67) 100 mechanica 06:15 l vent 09/12/18 [place] 06:00 l Ventilato r Activity: WNL Respiratory function: WNL Cardiovascular function: WNL Mental status: Baseline Pain reasonably controlled: Yes Hydration appropriate: Yes Nausea/Vomiting absent: No JOELLE SMITH MD Sep 12, 2018 09:07
--- NOTE | 2018-09-12 09:54 | PN ---
Date/Time of Note Date/Time of Note DATE: 09/12/18 TIME: 09:41 Assessment/Plan VTE Prophylaxis Risk score (from Ns)>0 risk: 9 [place] [facility] [place] contraindicated: other Pharmacological prophylaxis: heparin Lines/Catheters IV Catheter Type (from [facility]): JASON Urinary Cath still in place: Yes Reason Cath still needed: urinary retention Assessment/Plan Hospital Course S: Pt had successful ultrasound guided right flank abdominal fluid collection drainage. Also had EGD performed yesterday. Also had dialysis yesterday. Still requiring pressor support, still with some intermittent fevers. CBC from this morning is still pending. Seen by renal team this morning as well. O: VS - see below PE: Gen: Morbidly obese man lying in bed Neck: Obese, trach, no lymphadenopathy appreciated HEENT: Clear oropharynx, moist mucous membranes Card: Sinus tach, distant heart sounds Pulm: distant lung sounds. Abd: Morbidly obese, soft, nontender Ext: Bilateral LE chronic venous stasis changes. Neuro: No focal deficits Assessment/Plan: 32yo Morbidly obese man who had presented with shortness of breath currently managed as follows: #. Hypoxic/hypercapnic respiratory failure-Secondary to ANDREW, exacerbated by pneumonia, underlying COPD with blebs now seen on CXR-Intubated , status post trach 08/24 -still with secretions requiring frequent suctioning and copious secretions-steroids added 09/05/18-back on vent 09/07/18. -Continue mechanical ventilation per pulmonary recommendations via trach, Mucomyst, duo nebs as needed, antibiotics -Scopolamine for secretions #. Sepsis -still on pressor support for the last 48 hours, still positive fevers. Respiratory cultures grew MDR Acinetobacter. Again patient had drainage of the abdominal fluid collection yesterday as well, potential source. - continue current antibiotics: tigecycline, ceftazidime, Flagyl, follow-up ID recommendations -Monitor drainage from LUPE drain in the intra-abdominal area, follow-up ID and surgery recommendations. -Follow-up CBC from this morning # Encephalopathy, toxic metabolic, r/o hypoxic ischemic-patient remains confused intermittently, may have suffered a brain insult, unable to get MRI or CT 2/ weight -appreciate neurology consult, will follow recs -attempted to cut back on dosing for Seroquel, but patient is still quite confused, Switched to BID dosing -Monitor, follow-up neurology recommendations #. renal insufficiency now started on hemodialysis -schaefer was changed to r/o obstruction 09/06/18-1st session 09/07/18, -Continue HD per renal #. Dislodged G tube with iatrogenic fluid pocket of extravasated tube feed-again status post IR drainage of large pocket of tube feed -abdominal fluid collection. PEG pulled 09/09 -Again status post US-guided drainage yesterday, monitor drainage, follow-up post procedure recommendations. Status post EGD yesterday with candidiasis found in the esophagus, along with esophageal ulceration but no active bleeding noted. -Per recommendations from nutrition team and renal team, okay to cautiously restart NG tube feeds today which we will do, monitor for residuals -Fluconazole IV for esophageal candidiasis, follow up GI recommendations #. Chronic hypochromic anemia -stable, monitor #. Severe Obesity-high risk for skin breakdown-appears controlled calories while on tube feeds-has lost about 40 pounds so far since admission per nursing, but much of this could be diuresis. -Continue to monitor for now, counseled on weight loss #. Debility and lethargy -PT limited by patient's mental status #. Hyperbilirubinemia - predominantly direct, alkaline phosphatase is normal - liver USS showed diffuse fatty liver -Follow-up am labs with hepatitis screen #. Tachycardia -related to fevers-sepsis per cardio, appreciate input -Monitor, continue IV fluids, wean off pressor support as tolerated Dispo: Given Actinobacter multidrug-resistant respiratory infection, still on pressor support, needs for dialysis, trach, NG tube feeds, abdominal fluid collection status post IR guided drainage, overall poor prognosis. Critical care time spent in patient care today equals 45 minutes. Result Diagram: 09/12/18 0400 09/12/18 0400 Results 24hrs Laboratory Tests Test 09/11/18 12:26 09/11/18 18:01 09/12/18 00:31 09/12/18 04:00 Hemoglobin 9.8 L 9.2 L 9.0 L 9.3 L Hematocrit 34.6 L 32.7 L 31.6 L 32.5 L Sodium Level 136 Potassium Level 5.1 Chloride Level 95 L Carbon Dioxide Level 22 Anion Gap 19 H Blood Urea Nitrogen 85 H Creatinine 5.94 H Est Glomerular 11 L Filtrat Rate mL/min Glucose Level 60 #L Calcium Level 8.6 Phosphorus Level 7.9 H Magnesium Level 2.0 Total Bilirubin 0.5 Direct Bilirubin 0.40 #H Indirect Bilirubin 0.1 Aspartate Amino 41 Transf (AST/SGOT) Alanine 41 Aminotransferase (AL T/SGPT) Alkaline Phosphatase 160 H Total Protein 6.2 Albumin 2.5 L Globulin 3.70 H Albumin/Globulin 0.67 Ratio Exam/Review of Systems Exam Vitals Vital Signs Date Temp Pulse Resp B/P (MAP) Pulse Ox O2 O2 Flow FiO2 Time Delivery Rate 09/12/18 121 33 100 40 09:10 09/12/18 99.0 08:26 09/12/18 91/55 (67) 06:15 09/12/18 Mechanical 06:00 Ventilator Intake and Output 09/11/18 09/11/18 09/12/18 1515:00 23:00 07:00 IntakeIntake Total 608.02 ml 571.91 ml 421.91 ml OutputOutput Total 950 ml 390 ml 185 ml BalanceBalance -341.98 ml 181.91 ml 236.91 ml Results Results 24hrs Laboratory Tests Test 09/11/18 12:26 09/11/18 18:01 09/12/18 00:31 09/12/18 04:00 Hemoglobin 9.8 L 9.2 L 9.0 L 9.3 L Hematocrit 34.6 L 32.7 L 31.6 L 32.5 L Sodium Level 136 Potassium Level 5.1 Chloride Level 95 L Carbon Dioxide Level 22 Anion Gap 19 H Blood Urea Nitrogen 85 H Creatinine 5.94 H Est Glomerular 11 L Filtrat Rate mL/min Glucose Level 60 #L Calcium Level 8.6 Phosphorus Level 7.9 H Magnesium Level 2.0 Total Bilirubin 0.5 Direct Bilirubin 0.40 #H Indirect Bilirubin 0.1 Aspartate Amino 41 Transf (AST/SGOT) Alanine 41 Aminotransferase (AL T/SGPT) Alkaline Phosphatase 160 H Total Protein 6.2 Albumin 2.5 L Globulin 3.70 H Albumin/Globulin 0.67 Ratio Medications Medication Current Medications IV Flush (NS 3 ml) 3 ml PER PROTOCOL IV ; Start 08/08/18 at 17:30 Ondansetron HCl (Zofran Inj) 4 mg Q6H PRN IV NAUSEA; Start 08/08/18 at 17:30 Midazolam HCl 50 ml @ 1 mls/hr TITRATE IV Last administered on 08/25/18 11:49; Admin Dose 4 MLS/HR; Start 08/13/18 at 08:30 Naphazoline HCl (Clear Eyes / Naphcon) 2 drop QID BOTH EYES Last administered on 09/12/18 07:44; Admin Dose 2 DROP; Start 08/16/18 at 18:14 Acetaminophen (Tylenol Liquid) 650 mg Q6H PRN NGT MILD PAIN(1-3)OR ELEVATED TEMP Last administered on 09/12/18 07:41; Admin Dose 650 MG; Start 08/17/18 at 00:57 Lorazepam (Ativan) 1 mg Q6H PRN IV AGITATION Last administered on 09/08/18 23:40; Admin Dose 1 MG; Start 08/28/18 at 02:30 Morphine Sulfate (morphine) 2 mg Q2H PRN IV SEVERE PAIN LEVEL 7-10 Last administered on 09/10/18 17:39; Admin Dose 2 MG; Start 08/28/18 at 09:00 Scopolamine (Transderm-Scop) 1 patch Q72H TRANSDERM Last administered on 09/09/18 12:08; Admin Dose 1 PATCH; Start 08/31/18 at 11:30 Quetiapine Fumarate (Seroquel) 25 mg BID GTB Last administered on 09/12/18 07:41; Admin Dose 25 MG; Start 09/05/18 at 21:00 Tigecycline 50 mg/ Sodium Chloride 100 ml @ 200 mls/hr Q12 IVPB Last administered on 09/12/18 07:44; Admin Dose 200 MLS/HR; Start 09/05/18 at 23:00 Ceftazidime 50 ml @ 100 mls/hr Q24H IVPB Last administered on 09/12/18 05:32; Admin Dose 100 MLS/HR; Start 09/07/18 at 06:00 Heparin Sodium (Porcine) (Heparin (5000 Units/1ml)) 5,000 unit Q12 SC Last administered on 09/10/18 21:36; Admin Dose 5,000 UNIT; Start 09/06/18 at 21:00; Status Hold IV Flush (NS 10 ml) 10 ml PRN PRN IV IV PROTOCOL; Start 09/06/18 at 17:30 Albumin Human 100 ml @ 100 mls/hr DURING DIALYSIS PRN IV BLOOD PRESSURE SUPPORT Last administered on 09/07/18 18:04; Admin Dose 100 MLS/HR; Start 09/07/18 at 09:30 Albuterol (Ventolin Hfa) 4 puff Q6H RESP THERAPY INH Last administered on 09/12/18 07:27; Admin Dose 4 PUFF; Start 09/08/18 at 09:00 Ipratropium [place] (Atrovent Hfa) 4 puff Q6HWA RESP THERAPY INH Last administered on 09/12/18 07:27; Admin Dose 4 PUFF; Start 09/08/18 at 09:00 Heparin Sodium (Porcine) (Heparin (1000 Units/ml)) 3,100 unit PRN CATHETER Last administered on 09/11/18 11:17; Admin Dose 3,100 UNIT; Start 09/08/18 at 14:00 Metronidazole 100 ml @ 100 mls/hr Q8 IVPB Last administered on 09/12/18 05:53; Admin Dose 100 MLS/HR; Start 09/09/18 at 14:00 Polyethylene Glycol (Miralax) 17 gm DAILY PRN GTB CONSTIPATION; Start 09/10/18 at 09:30 Acetylcysteine (Mucomyst) 1 ml Q6H RESP THERAPY NEB Last administered on 09/12/18 08:10; Admin Dose 1 ML; Start 09/10/18 at 14:00 Pantoprazole 80 mg/Sodium Chloride 100 ml @ 10 mls/hr Q10H IV Last administered on 09/12/18 01:45; Admin Dose 10 MLS/HR; Start 09/10/18 at 13:30 Phenylephrine HCl 80 mg/Dextrose 250 ml @ 18.75 mls/ hr TITRATE IV Last administered on 09/12/18 09:15; Admin Dose 44.06 MLS/HR; Start 09/11/18 at 12:00 Fluconazole 200 ml @ 100 mls/hr Q24H IVPB Last administered on 09/11/18 20:13; Admin Dose 100 MLS/HR; Start 09/11/18 at 20:00 RC GO Sep 12, 2018 09:52
--- NOTE | 2018-09-12 11:29 | CONS ---
Consult Date/Type/Reason Admit Date/Time Aug 08, 2018 at 17:18 Initial Consult Date 08/09/18 Type of Consult Pulmonary Requesting Provider: TATI CARDOZA Date/Time of Note DATE: 09/12/18 TIME: 11:28 Subjective Status post drainage of abdominal fluid. Remains tachypneic and febrile. Continues vasopressor support. Objective Vital Signs Date Temp Pulse Resp B/P (MAP) Pulse Ox O2 O2 Flow FiO2 Time Delivery Rate 09/12/18 120 31 88/26 (46) 100 Mechanical 10:00 Ventilator 09/12/18 40 09:10 09/12/18 99.0 08:26 Intake and Output 09/11/18 09/11/18 09/12/18 1414:59 22:59 06:59 IntakeIntake Total 674.89 ml 561.91 ml 475.04 ml OutputOutput Total 710 ml 630 ml 185 ml BalanceBalance -35.11 ml -68.09 ml 290.04 ml Exam GENERAL: Obese young gentleman tracheostomy on mechanical ventilation VITAL SIGNS: per chart NECK: Supple. No JVD or lymphadenopathy. CARDIAC EXAM: S1, S2. No added sounds or murmurs. CHEST: Diminished air entry bilaterally. ABDOMEN: Soft, nontender. No guarding or rebound. Decreased bowel sounds EXTREMITIES: No cyanosis, clubbing, edema +2 NEUROLOGIC: Generalized weakness. No focal deficits. Vent Setting Ventilator Support Mode: AC, VC plus Fraction of Inspired Oxygen pe: 40 Positive End Expiratory Pressu: 5.0 Results/Medications Result Diagram: 09/12/18 0952 09/12/18 0400 Results 24 hrs Laboratory Tests Test 09/11/18 12:26 09/11/18 18:01 09/12/18 00:31 09/12/18 04:00 Hemoglobin 9.8 L 9.2 L 9.0 L 9.3 L Hematocrit 34.6 L 32.7 L 31.6 L 32.5 L Sodium Level 136 Potassium Level 5.1 Chloride Level 95 L Carbon Dioxide Level 22 Anion Gap 19 H Blood Urea Nitrogen 85 H Creatinine 5.94 H Est Glomerular 11 L Filtrat Rate mL/min Glucose Level 60 #L Calcium Level 8.6 Phosphorus Level 7.9 H Magnesium Level 2.0 Total Bilirubin 0.5 Direct Bilirubin 0.40 #H Indirect Bilirubin 0.1 Aspartate Amino 41 Transf (AST/SGOT) Alanine 41 Aminotransferase (AL T/SGPT) Alkaline Phosphatase 160 H Total Protein 6.2 Albumin 2.5 L Globulin 3.70 H Albumin/Globulin 0.67 Ratio Test 09/12/18 09:52 White Blood Count 24.6 H Red Blood Count 3.66 L Hemoglobin 8.4 L Hematocrit 30.2 L Mean Corpuscular 82.5 Volume Mean Corpuscular 23.0 L Hemoglobin Mean Corpuscular 27.8 L Hemoglobin Concent Red Cell 23.0 H Distribution Width Platelet Count 249 Mean Platelet Volume 10.9 H Immature 6.600 H Granulocytes % Neutrophils % 77.5 H Lymphocytes % 9.3 L Monocytes % 6.4 Eosinophils % 0.0 Basophils % 0.2 Nucleated Red Blood 0.4 H Cells % Immature 1.610 H Granulocytes # Neutrophils # 19.0 H Lymphocytes # 2.3 Monocytes # 1.6 H Eosinophils # 0.0 Basophils # 0.1 Nucleated Red Blood 0.1 H Cells # Medications Current Medications IV Flush (NS 3 ml) 3 ml PER PROTOCOL IV ; Start 08/08/18 at 17:30 Ondansetron HCl (Zofran Inj) 4 mg Q6H PRN IV NAUSEA; Start 08/08/18 at 17:30 Midazolam HCl 50 ml @ 1 mls/hr TITRATE IV Last administered on 08/25/18at 11:49; Admin Dose 4 MLS/HR; Start 08/13/18 at 08:30 Naphazoline HCl (Clear Eyes / Naphcon) 2 drop QID BOTH EYES Last administered on 09/12/18at 07:44; Admin Dose 2 DROP; Start 08/16/18 at 18:14 Acetaminophen (Tylenol Liquid) 650 mg Q6H PRN NGT MILD PAIN(1-3)OR ELEVATED TEMP Last administered on 09/12/18at 07:41; Admin Dose 650 MG; Start 08/17/18 at 00:57 Lorazepam (Ativan) 1 mg Q6H PRN IV AGITATION Last administered on 09/08/18at 23:40; Admin Dose 1 MG; Start 08/28/18 at 02:30 Morphine Sulfate (morphine) 2 mg Q2H PRN IV SEVERE PAIN LEVEL 7-10 Last administered on 09/10/18at 17:39; Admin Dose 2 MG; Start 08/28/18 at 09:00 Scopolamine (Transderm-Scop) 1 patch Q72H TRANSDERM Last administered on 09/09/18 12:08; Admin Dose 1 PATCH; Start 08/31/18 at 11:30 Quetiapine Fumarate (Seroquel) 25 mg BID GTB Last administered on 09/12/18 07:41; Admin Dose 25 MG; Start 09/05/18 at 21:00 Tigecycline 50 mg/ Sodium Chloride 100 ml @ 200 mls/hr Q12 IVPB Last administered on 09/12/18 07:44; Admin Dose 200 MLS/HR; Start 09/05/18 at 23:00 Ceftazidime 50 ml @ 100 mls/hr Q24H IVPB Last administered on 09/12/18 05:32; Admin Dose 100 MLS/HR; Start 09/07/18 at 06:00 Heparin Sodium (Porcine) (Heparin (5000 Units/1ml)) 5,000 unit Q12 SC Last administered on 09/10/18 21:36; Admin Dose 5,000 UNIT; Start 09/06/18 at 21:00; Status Hold IV Flush (NS 10 ml) 10 ml PRN PRN IV IV PROTOCOL; Start 09/06/18 at 17:30 Albumin Human 100 ml @ 100 mls/hr DURING DIALYSIS PRN IV BLOOD PRESSURE SUPPORT Last administered on 09/07/18 18:04; Admin Dose 100 MLS/HR; Start 09/07/18 at 09:30 Albuterol (Ventolin Hfa) 4 puff Q6H RESP THERAPY INH Last administered on 09/12/18 07:27; Admin Dose 4 PUFF; Start 09/08/18 at 09:00 Ipratropium [place] (Atrovent Hfa) 4 puff Q6HWA RESP THERAPY INH Last adminis tered on 09/12/18 07:27; Admin Dose 4 PUFF; Start 09/08/18 at 09:00 Heparin Sodium (Porcine) (Heparin (1000 Units/ml)) 3,100 unit PRN CATHETER Last administered on 09/11/18 11:17; Admin Dose 3,100 UNIT; Start 09/08/18 at 14:00 Metronidazole 100 ml @ 100 mls/hr Q8 IVPB Last administered on 09/12/18 05:53; Admin Dose 100 MLS/HR; Start 09/09/18 at 14:00 Polyethylene Glycol (Miralax) 17 gm DAILY PRN GTB CONSTIPATION; Start 09/10/18 at 09:30 Acetylcysteine (Mucomyst) 1 ml Q6H RESP THERAPY NEB Last administered on 09/12/18at 08:10; Admin Dose 1 ML; Start 09/10/18 at 14:00 Phenylephrine HCl 80 mg/Dextrose 250 ml @ 18.75 mls/ hr TITRATE IV Last administered on 09/12/18at 09:15; Admin Dose 44.06 MLS/HR; Start 09/11/18 at 12:00 Fluconazole 200 ml @ 100 mls/hr Q24H IVPB Last administered on 09/11/18at 20:13; Admin Dose 100 MLS/HR; Start 09/11/18 at 20:00 Pantoprazole (Protonix Iv) 40 mg DAILY@06 IV ; Start 09/13/18 at 06:00 Assessment/Plan Hospital Course (Demo Recall) IMP: 1. Acute on chronic hypoxemic and hypercapnic respiratory failure, failed mul tiple weaning trials status post tracheostomy. Significant secretions, 2. G-tube was misplaced with tube feeding and abdominal cavity. 3. History of obesity hypoventilation syndrome and probable obstructive sleep apnea 4. Leukocytosis With ongoing fevers and persistent diarrhea. 5. Acute renal failure. Now on hemodialysis 6. Small bowel obstruction with septic shock RECS: 1. Continue AC mechanical ventilation for now not for weaning. Continue pulmonary toilet as tolerated 2. Continue ID recommendations 3. GI recommendations regarding removal of tube feed in abdominal cavity alisa nue drainage 4. Acute renal failure continue hemodialysis per nephrology 5. Surgery recommendations with ongoing small bowel obstruction. Now tolerating tube feeding. 6. Septic shock secondary to resistant organism noted. ID recommendations Prognosis guarded 40 min cc time JULIETH UPENTE MD, FCCP Sep 12, 2018 11:29
[2018-09-12] MEDS: SCOPOLAMINE 1.5 MG PATCH TRANSDERM SCH (12:11)
--- NOTE | 2018-09-12 13:08 | CONS ---
Assessment/Plan Assessment/Plan Hospital Course (Demo Recall) No acute changes overnight patient remains on David-Synephrine drip tachycardic and still spiking fevers with a T-max of 101.2 this morning T-current 99.4 pulse 115 respirations 27 blood pressure 93/59 saturation 97% on vent WBC 24.6 H&H 8.4 and 30.2 platelets 249 neutrophils 77.5 Microbiology: Urine culture growing yeast, blood cultures since admission negative, drainage from G-tube site growing enterococcus species, susceptible to ampicillin and vancomycin Antimicrobials: Flagyl, ceftazidime, Tygacil Indwelling: Trach PEG right femoral Nikko left upper extremity PICC line, abdominal pigtail Antimicrobials: Tygacil, Fortaz Physical examination: This is a morbidly obese well-developed middle-aged man who lethargic, in no distress. Head atraumatic normocephalic, neck is obese, tracheostomy present. Chest rise symmetrical breath sounds diminished. Heart: S1-S2, tachycardic. Abdomen obese, distended, patient has a large amount of drainage from G-tube site, bowel sounds hypoactive. Extremities with edema Assessment: 1. Severe sepsis with shock and multisystem organ failure 2. Large intra-abdominal abscess secondary to #3, status post pigtail catheter insertion 09/11/18 3. G-tube displacement, status post discontinued 4. Acute hypoxemic respiratory failure status post tracheostomy 5. Acute kidney failure, started on hemodialysis 6. Status post pneumonia 7. Morbid obesity 8. Belinda UTI 9. Belinda esophagitis Plan: Patient remains on pressors and continues to spike fevers, will change antibiotics to vancomycin and Zosyn, continue fluconazole, await for drainage cultures. DEBORAH RN Consultation Date/Type/Reason Admit Date/Time Aug 08, 2018 at 17:18 Initial Consult Date 08/09/18 Type of Consult ID Requesting Provider: TATI CARDOZA Date/Time of Note DATE: 09/12/18 TIME: 13:04 Exam/Review of Systems Exam Vitals Vital Signs Date Temp Pulse Resp B/P (MAP) Pulse Ox O2 O2 Flow FiO2 Time Delivery Rate 09/12/18 115 27 93/59 (70) 97 12:30 09/12/18 99.4 Mechanical 12:00 Ventilator 09/12/18 40 09:10 Intake and Output 09/11/18 09/11/1819 1515:00 23:00 07:00 IntakeIntake Total 608.02 ml 571.91 ml 421.91 ml OutputOutput Total 950 ml 390 ml 185 ml BalanceBalance -341.98 ml 181.91 ml 236.91 ml Results Result Diagram: 09/12/18 1147 09/12/18 0400 Results 24hrs Laboratory Tests Test 09/11/18 18:01 09/12/18 00:31 09/12/18 04:00 09/12/18 09:52 Hemoglobin 9.2 L 9.0 L 9.3 L 8.4 L Hematocrit 32.7 L 31.6 L 32.5 L 30.2 L Sodium Level 136 Potassium Level 5.1 Chloride Level 95 L Carbon Dioxide Level 22 Anion Gap 19 H Blood Urea Nitrogen 85 H Creatinine 5.94 H Est Glomerular 11 L Filtrat Rate mL/min Glucose Level 60 #L Calcium Level 8.6 Phosphorus Level 7.9 H Magnesium Level 2.0 Total Bilirubin 0.5 Direct Bilirubin 0.40 #H Indirect Bilirubin 0.1 Aspartate Amino 41 Transf (AST/SGOT) Alanine 41 Aminotransferase (AL T/SGPT) Alkaline Phosphatase 160 H Total Protein 6.2 Albumin 2.5 L Globulin 3.70 H Albumin/Globulin 0.67 Ratio White Blood Count 24.6 H Red Blood Count 3.66 L Mean Corpuscular 82.5 Volume Mean Corpuscular 23.0 L Hemoglobin Mean Corpuscular 27.8 L Hemoglobin Concent Red Cell 23.0 H Distribution Width Platelet Count 249 Mean Platelet Volume 10.9 H Immature 6.600 H Granulocytes % Neutrophils % 77.5 H Segmented 63 Neutrophils % (Manual) Band Neutrophils % 14 H (Manual) Lymphocytes % 9.3 L Lymphocytes % 9 L (Manual) Monocytes % 6.4 Monocytes % (Manual) 7 Eosinophils % 0.0 Eosinophils % 1 (Manual) Basophils % 0.2 Basophils % (Manual) 1 Metamyelocytes % 3 H (manual) Promyelocytes % 2 H (Manual) Nucleated Red Blood 0.4 H Cells % Immature 1.610 H Granulocytes # Neutrophils # 19.0 H Neutrophils # 16.3 H (Manual) Band Neutrophils # 3.4 H Lymphocytes (Manual) 2.2 Lymphocytes # 2.3 Monocytes # 1.6 H Monocytes # (Manual) 1.7 H Eosinophils # 0.0 Basophils # 0.1 Basophils # (Manual) 0.2 H Metamyelocytes # 0.7 H Promyelocytes # 0.4 H Nucleated Red Blood 0.1 H Cells # Platelet Estimate NORMAL Giant Platelets 2 H Polychromasia 2+ Hypochromasia 2+ Poikilocytosis 3+ Anisocytosis 2+ Microcytosis 1+ Macrocytosis 1+ Target Cells 1+ Ovalocytes 1+ Test 09/12/18 11:47 Hemoglobin 7.9 L Hematocrit 27.5 L Medications Medication Current Medications IV Flush (NS 3 ml) 3 ml PER PROTOCOL IV ; Start 08/08/18 at 17:30 Ondansetron HCl (Zofran Inj) 4 mg Q6H PRN IV NAUSEA; Start 08/08/18 at 17:30 Naphazoline HCl (Clear Eyes / Naphcon) 2 drop QID BOTH EYES Last administered on 09/12/18at 12:10; Admin Dose 2 DROP; Start 08/16/18 at 18:14 Acetaminophen (Tylenol Liquid) 650 mg Q6H PRN NGT MILD PAIN(1-3)OR ELEVATED TEMP Last administered on 09/12/18 07:41; Admin Dose 650 MG; Start 08/17/18 at 00:57 Lorazepam (Ativan) 1 mg Q6H PRN IV AGITATION Last administered on 09/08/18 23:40; Admin Dose 1 MG; Start 08/28/18 at 02:30 Morphine Sulfate (morphine) 2 mg Q2H PRN IV SEVERE PAIN LEVEL 7-10 Last admin istered on 09/10/18 17:39; Admin Dose 2 MG; Start 08/28/18 at 09:00 Scopolamine (Transderm-Scop) 1 patch Q72H TRANSDERM Last administered on 09/12/18 12:11; Admin Dose 1 PATCH; Start 08/31/18 at 11:30 Quetiapine Fumarate (Seroquel) 25 mg BID GTB Last administered on 09/12/18 07:41; Admin Dose 25 MG; Start 09/05/18 at 21:00 Tigecycline 50 mg/ Sodium Chloride 100 ml @ 200 mls/hr Q12 IVPB Last administered on 09/12/18 07:44; Admin Dose 200 MLS/HR; Start 09/05/18 at 23:00 Ceftazidime 50 ml @ 100 mls/hr Q24H IVPB Last administered on 09/12/18 05:32; Admin Dose 100 MLS/HR; Start 09/07/18 at 06:00 Heparin Sodium (Porcine) (Heparin (5000 Units/1ml)) 5,000 unit Q12 SC Last administered on 09/10/18 21:36; Admin Dose 5,000 UNIT; Start 09/06/18 at 21:00; Status Hold IV Flush (NS 10 ml) 10 ml PRN PRN IV IV PROTOCOL; Start 09/06/18 at 17:30 Albumin Human 100 ml @ 100 mls/hr DURING DIALYSIS PRN IV BLOOD PRESSURE SUPPORT Last administered on 09/07/18 18:04; Admin Dose 100 MLS/HR; Start 09/07/18 at 09:30 Albuterol (Ventolin Hfa) 4 puff Q6H RESP THERAPY INH Last administered on 08/19 07:27; Admin Dose 4 PUFF; Start 09/08/18 at 09:00 Ipratropium [place] (Atrovent Hfa) 4 puff Q6HWA RESP THERAPY INH Last administered on 09/12/18 07:27; Admin Dose 4 PUFF; Start 09/08/18 at 09:00 Heparin Sodium (Porcine) (Heparin (1000 Units/ml)) 3,100 unit PRN CATHETER Last administered on 09/11/18 11:17; Admin Dose 3,100 UNIT; Start 09/08/18 at 14:00 Metronidazole 100 ml @ 100 mls/hr Q8 IVPB Last administered on 09/12/18 05:53; Admin Dose 100 MLS/HR; Start 09/09/18 at 14:00 Polyethylene Glycol (Miralax) 17 gm DAILY PRN GTB CONSTIPATION; Start 09/10/18 at 09:30 Acetylcysteine (Mucomyst) 1 ml Q6H RESP THERAPY NEB Last administered on 09/12/18 08:10; Admin Dose 1 ML; Start 09/10/18 at 14:00 Phenylephrine HCl 80 mg/Dextrose 250 ml @ 18.75 mls/ hr TITRATE IV Last administered on 09/12/18 09:15; Admin Dose 44.06 MLS/HR; Start 09/11/18 at 12:00 Pantoprazole (Protonix Iv) 40 mg DAILY@06 IV ; Start 09/13/18 at 06:00 Multivitamins (Multivitamin) 30 ml DAILY GTB ; Start 09/13/18 at 09:00 Folic Acid (Folic Acid) 1 mg DAILY GTB ; Start 09/13/18 at 09:00 Zinc Sulfate (Zinc Sulfate) 220 mg DAILY GTB ; Start 09/13/18 at 09:00 Ascorbic Acid (Vitamin C) 250 mg DAILY GTB ; Start 09/13/18 at 09:00 Fluconazole/ Sodium Chloride 50 ml @ 50 mls/hr Q24H IVPB ; Start 09/12/18 at 14: 00 Norepinephrine 32 mg/Dextrose 250 ml @ 0.47 mls/hr TITRATE IV ; Start 09/12/18 at 13:00; Status UNV JOCELYN VILLALTA NP Sep 12, 2018 13:08
--- NOTE | 2018-09-12 13:14 | CONS ---
Assessment/Plan Assessment/Plan Hospital Course 32 yo morbidly obese male with multiple comorbidities who is admitted to the [facility] ICU for management of acute respiratory failure...now s/p trach He is noted to be protractedly encephalopathic, for which neurology is consulted. PNA+ MARTINE worsening On daily iv steroids, which likely precipitate/exacerbate psychosis Receiving multiple psychotropics.. Most clinically consistent with an acute and multifactorial toxic-metabolic encephalopathy. A focal BACTERIOLOGIST FISHERY process is less likely. Patient's body habitus is reportedly not amendable to neuroimaging P: [place] as necessary Hold seroquel while patient is obtunded; consider resuming low dose seroquel, prn...should he require in the future.. PT/OT/ST when able to participate Other medical management per primary Will follow clinically Consultation Date/Type/Reason Admit Date/Time Aug 08, 2018 at 17:18 Type of Consult Neurology Reason for Consultation encephalopathy Requesting Provider: TATI CARDOZA Date/Time of Note DATE: 09/12/18 TIME: 13:14 24 HR Interval Summary Free Text/Dictation Continues critical care. S/p EGD yesterday. H/H trending down. Exam Vital Signs Vitals Vital Signs Date Temp Pulse Resp B/P (MAP) Pulse Ox O2 O2 Flow FiO2 Time Delivery Rate 09/12/18 114 29 97 40 13:08 09/12/18 93/59 (70) 12:30 09/12/18 99.4 Mechanical 12:00 Ventilator Intake and Output 09/11/18 09/11/18 09/12/18 1515:00 23:00 07:00 IntakeIntake Total 608.02 ml 571.91 ml 421.91 ml OutputOutput Total 950 ml 390 ml 185 ml BalanceBalance -341.98 ml 181.91 ml 236.91 ml Exam PE: Gen Appearance: No Apparent Distress HEENT: Trach Cards: Regular rate; on neosynephrine gtt Abdomen: Soft, obese Extremities: Dry NE: The patient was obtunded and nonverbal. Able to fix; unable to follow commands. Cranial nerve examination was limited by mental status. Pupils were equal and reactive to light. There was no afferent pupillary defect. Funduscopic examination was limited. Face was grossly symmetric, w/ present corneal and cough reflexes. Tone was normal. Muscle bulk was normal. I did not see fasciculations. The patient withdrew to noxious stimulation x 4. Coordination and gait testing was limited by mental status. Arm and leg reflexes were within normal limits and symmetric. Grimm's sign was absent. Plantar responses were flexor. ARSENIO MAXWELL NP Sep 12, 2018 13:14 RAYMOND HERNANDEZ Sep 12, 2018 14:29
[2018-09-12] MEDS ORDERED: VANCOMYCIN IV PER PHARMACY XX SCH (13:30)
--- NOTE | 2018-09-12 13:41 | PN ---
Date/Time of Note Date/Time of Note DATE: 09/12/18 TIME: 13:40 Assessment/Plan Lines/Catheters IV Catheter Type (from Nrsg): JASON Santiago in Place (from Nrsg): No Assessment/Plan Assessment/Plan Has post tracheostomy Trach site clean No bleeding We will continue vent support Trach care Pulmonary toilet Subjective 24 Hr Interval Summary Constitutional: improved Pain Control: mild Exam/Review of Systems Vital Signs Vitals Vital Signs Date Temp Pulse Resp B/P (MAP) Pulse Ox O2 O2 Flow FiO2 Time Delivery Rate 09/12/18 114 29 97 40 13:08 09/12/18 93/59 (70) 12:30 09/12/18 99.4 Mechanical 12:00 Ventilator Intake and Output 09/11/18 09/11/18 09/12/18 1515:00 23:00 07:00 IntakeIntake Total 608.02 ml 571.91 ml 421.91 ml OutputOutput Total 950 ml 390 ml 185 ml BalanceBalance -341.98 ml 181.91 ml 236.91 ml Exam ENMT: nl external ears & nose, nl lips & teeth, nl nasal mucosa & septum, mucosa pink and moist Neck: supple, non-tender Respiratory: clear to auscultation, normal air movement Cardiovascular: regular rate and rhythm, nl pulses Gastrointestinal: soft, nl liver, spleen, non-tender Musculoskeletal: nl extremities to inspection, nl gait and stance Results Result Diagram: 09/12/18 1147 09/12/18 0400 TIMMY DALAL MD Sep 12, 2018 13:41
[2018-09-12] MEDS: NORepinephrine 32 MG in DEXTROSE 5% 218 ML IV SCH (13:47)
[2018-09-12] MEDS: PIPER-TAZO 2.25 GM (PMX) 50 ML IVPB SCH ×2 (14:13→21:51)
[2018-09-12] MEDS: FLUCONAZOLE 100 MG/50 ML (PMX) 50 ML IVPB SCH (14:24)
[2018-09-12] MEDS ORDERED: VANCOMYCIN HCL 2 GM in SOD CHLORIDE 0.9% 500 ML IVPB SCH (15:00)
--- NOTE | 2018-09-12 15:09 | PN ---
Date/Time of Note Date/Time of Note DATE: 09/12/18 TIME: 14:40 Assessment/Plan VTE Prophylaxis Risk score (from Ns)>0 risk: 9 SCD applied (from [facility]): No SCD contraindicated: other (scds) Pharmacological prophylaxis: other (scds) Lines/Catheters IV [facility] Type (from [facility] JASON Urinary Cath still in place: No Assessment/Plan Hospital Course Assessment/Plan Assessment: Coffee-ground emesis EGD 09/11/18 Upper GI bleeding likely from esophageal ulceration Currently stable Candidal esophagitis noted No active bleeding or old blood noted today. Anemia Sepsis Accidental displacement of GT (Removed) R/o abdominal wall cellulitis (not evident thus far) VDRF Encephalopathy Morbid obesity Contact isolation Plan: Restart Protonix gtt. Hold NGT feeding x 24 hours H/H Q6, Transfuse for hemoglobin less then 7.5 Local Gt site care Replace GT once abdominal wall healed Patient seen in collaboration with Dr. Morrissey Subjective: NGT restarted,patient now pinkish out-put from NGT noted during aspiration With a noted drop in HGB. So far melena no has been noted. We will maintain close observation at this time. GENERAL: Morbidly Obese, s/p tracheostomy on MV HEENT: Supple. NG tube in place. CARDIAC EXAM: S1, S2. No murmurs. CHEST: Scattered crackles ABDOMEN: Soft, nontender. G-tube stoma to drainage bag with milky pinkish output. No guarding or rebound. drain to LQ EXTREMITIES: No cyanosis, clubbing, edema +2 Result Diagram: 09/12/18 1147 09/12/18 0400 Results 24hrs Laboratory Tests Test 09/11/18 18:01 09/12/18 00:31 09/12/18 04:00 09/12/18 09:52 Hemoglobin 9.2 L 9.0 L 9.3 L 8.4 L Hematocrit 32.7 L 31.6 L 32.5 L 30.2 L Sodium Level 136 Potassium Level 5.1 Chloride Level 95 L Carbon Dioxide Level 22 Anion Gap 19 H Blood Urea Nitrogen 85 H Creatinine 5.94 H Est Glomerular 11 L Filtrat Rate mL/min Glucose Level 60 #L Calcium Level 8.6 Phosphorus Level 7.9 H Magnesium Level 2.0 Total Bilirubin 0.5 Direct Bilirubin 0.40 #H Indirect Bilirubin 0.1 Aspartate Amino 41 Transf (AST/SGOT) Alanine 41 Aminotransferase (AL T/SGPT) Alkaline Phosphatase 160 H Total Protein 6.2 Albumin 2.5 L Globulin 3.70 H Albumin/Globulin 0.67 Ratio White Blood Count 24.6 H Red Blood Count 3.66 L Mean Corpuscular 82.5 Volume Mean Corpuscular 23.0 L Hemoglobin Mean Corpuscular 27.8 L Hemoglobin Concent Red Cell 23.0 H Distribution Width Platelet Count 249 Mean Platelet Volume 10.9 H Immature 6.600 H Granulocytes % Neutrophils % 77.5 H Segmented 63 Neutrophils % (Manual) Band Neutrophils % 14 H (Manual) Lymphocytes % 9.3 L Lymphocytes % 9 L (Manual) Monocytes % 6.4 Monocytes % (Manual) 7 Eosinophils % 0.0 Eosinophils % 1 (Manual) Basophils % 0.2 Basophils % (Manual) 1 Metamyelocytes % 3 H (manual) Promyelocytes % 2 H (Manual) Nucleated Red Blood 0.4 H Cells % Immature 1.610 H Granulocytes # Neutrophils # 19.0 H Neutrophils # 16.3 H (Manual) Band Neutrophils # 3.4 H Lymphocytes (Manual) 2.2 Lymphocytes # 2.3 Monocytes # 1.6 H Monocytes # (Manual) 1.7 H Eosinophils # 0.0 Basophils # 0.1 Basophils # (Manual) 0.2 H Metamyelocytes # 0.7 H Promyelocytes # 0.4 H Nucleated Red Blood 0.1 H Cells # Platelet Estimate NORMAL Giant Platelets 2 H Polychromasia 2+ Hypochromasia 2+ Poikilocytosis 3+ Anisocytosis 2+ Microcytosis 1+ Macrocytosis 1+ Target Cells 1+ Ovalocytes 1+ Test 09/12/18 11:47 Hemoglobin 7.9 L Hematocrit 27.5 L Exam/Review of Systems Exam Vitals Vital Signs Date Temp Pulse Resp B/P (MAP) Pulse Ox O2 O2 Flow FiO2 Time Delivery Rate 09/12/18 114 29 97 40 13:08 09/12/18 93/59 (70) 12:30 09/12/18 99.4 Mechanical 12:00 Ventilator Intake and Output 09/11/18 09/11/18 09/12/18 1515:00 23:00 07:00 IntakeIntake Total 608.02 ml 571.91 ml 421.91 ml OutputOutput Total 950 ml 390 ml 185 ml BalanceBalance -341.98 ml 181.91 ml 236.91 ml Results Results 24hrs Laboratory Tests Test 09/11/18 18:01 09/12/18 00:31 09/12/18 04:00 09/12/18 09:52 Hemoglobin 9.2 L 9.0 L 9.3 L 8.4 L Hematocrit 32.7 L 31.6 L 32.5 L 30.2 L Sodium Level 136 Potassium Level 5.1 Chloride Level 95 L Carbon Dioxide Level 22 Anion Gap 19 H Blood Urea Nitrogen 85 H Creatinine 5.94 H Est Glomerular 11 L Filtrat Rate mL/min Glucose Level 60 #L Calcium Level 8.6 Phosphorus Level 7.9 H Magnesium Level 2.0 Total Bilirubin 0.5 Direct Bilirubin 0.40 #H Indirect Bilirubin 0.1 Aspartate Amino 41 Transf (AST/SGOT) Alanine 41 Aminotransferase (AL T/SGPT) Alkaline Phosphatase 160 H Total Protein 6.2 Albumin 2.5 L Globulin 3.70 H Albumin/Globulin 0.67 Ratio White Blood Count 24.6 H Red Blood Count 3.66 L Mean Corpuscular 82.5 Volume Mean Corpuscular 23.0 L Hemoglobin Mean Corpuscular 27.8 L Hemoglobin Concent Red Cell 23.0 H Distribution Width Platelet Count 249 Mean Platelet Volume 10.9 H Immature 6.600 H Granulocytes % Neutrophils % 77.5 H Segmented 63 Neutrophils % (Manual) Band Neutrophils % 14 H (Manual) Lymphocytes % 9.3 L Lymphocytes % 9 L (Manual) Monocytes % 6.4 Monocytes % (Manual) 7 Eosinophils % 0.0 Eosinophils % 1 (Manual) Basophils % 0.2 Basophils % (Manual) 1 Metamyelocytes % 3 H (manual) Promyelocytes % 2 H (Manual) Nucleated Red Blood 0.4 H Cells % Immature 1.610 H Granulocytes # Neutrophils # 19.0 H Neutrophils # 16.3 H (Manual) Band Neutrophils # 3.4 H Lymphocytes (Manual) 2.2 Lymphocytes # 2.3 Monocytes # 1.6 H Monocytes # (Manual) 1.7 H Eosinophils # 0.0 Basophils # 0.1 Basophils # (Manual) 0.2 H Metamyelocytes # 0.7 H Promyelocytes # 0.4 H Nucleated Red Blood 0.1 H Cells # Platelet Estimate NORMAL Giant Platelets 2 H Polychromasia 2+ Hypochromasia 2+ Poikilocytosis 3+ Anisocytosis 2+ Microcytosis 1+ Macrocytosis 1+ Target Cells 1+ Ovalocytes 1+ Test 09/12/18 11:47 Hemoglobin 7.9 L Hematocrit 27.5 L Medications Medication Current Medications IV Flush (NS 3 ml) 3 ml PER PROTOCOL IV ; Start 08/08/18 at 17:30 Ondansetron HCl (Zofran Inj) 4 mg Q6H PRN IV NAUSEA; Start 08/08/18 at 17:30 Naphazoline HCl (Clear Eyes / Naphcon) 2 drop QID BOTH EYES Last administered on 09/12/18 12:10; Admin Dose 2 DROP; Start 08/16/18 at 18:14 Acetaminophen (Tylenol Liquid) 650 mg Q6H PRN NGT MILD PAIN(1-3)OR ELEVATED TEMP Last administered on 09/12/18 07:41; Admin Dose 650 MG; Start 08/17/18 at 00:57 Lorazepam (Ativan) 1 mg Q6H PRN IV AGITATION Last administered on 09/08/18 23:40; Admin Dose 1 MG; Start 08/28/18 at 02:30 Morphine Sulfate (morphine) 2 mg Q2H PRN IV SEVERE PAIN LEVEL 7-10 Last administered on 09/10/18 17:39; Admin Dose 2 MG; Start 08/28/18 at 09:00 Scopolamine (Transderm-Scop) 1 patch Q72H TRANSDERM Last administered on 09/12/18 12:11; Admin Dose 1 PATCH; Start 08/31/18 at 11:30 Heparin Sodium (Porcine) (Heparin (5000 Units/1ml)) 5,000 unit Q12 SC Last administered on 09/10/18 21:36; Admin Dose 5,000 UNIT; Start 09/06/18 at 21:00; Status Hold IV Flush (NS 10 ml) 10 ml PRN PRN IV IV PROTOCOL; Start 09/06/18 at 17:30 Albumin Human 100 ml @ 100 mls/hr DURING DIALYSIS PRN IV BLOOD PRESSURE SUPPORT Last administered on 09/07/18 18:04; Admin Dose 100 MLS/HR; Start 09/07/18 at 09:30 Albuterol (Ventolin Hfa) 4 puff Q6H RESP THERAPY INH Last administered on 09/12/18 13:25; Admin Dose 4 PUFF; Start 09/08/18 at 09:00 Ipratropium [place] (Atrovent Hfa) 4 puff Q6HWA RESP THERAPY INH Last administered on 09/12/18at 13:25; Admin Dose 4 PUFF; Start 09/08/18 at 09:00 Heparin Sodium (Porcine) (Heparin (1000 Units/ml)) 3,100 unit PRN CATHETER Last administered on 09/11/18 11:17; Admin Dose 3,100 UNIT; Start 09/08/18 at 14:00 Polyethylene Glycol (Miralax) 17 gm DAILY PRN GTB CONSTIPATION; Start 09/10/18 at 09:30 Acetylcysteine (Mucomyst) 1 ml Q6H RESP THERAPY NEB Last administered on 09/12/18 13:25; Admin Dose 1 ML; Start 09/10/18 at 14:00 Phenylephrine HCl 80 mg/Dextrose 250 ml @ 18.75 mls/ hr TITRATE IV Last administered on 09/12/18at 09:15; Admin Dose 44.06 MLS/HR; Start 09/11/18 at 12:00 Pantoprazole (Protonix Iv) 40 mg DAILY@06 IV ; Start 09/13/18 at 06:00 Multivitamins (Multivitamin) 30 ml DAILY GTB ; Start 09/13/18 at 09:00 Folic Acid (Folic Acid) 1 mg DAILY GTB ; Start 09/13/18 at 09:00 Zinc Sulfate (Zinc Sulfate) 220 mg DAILY GTB ; Start 09/13/18 at 09:00 Ascorbic Acid (Vitamin C) 250 mg DAILY GTB ; Start 09/13/18 at 09:00 Fluconazole/ Sodium Chloride 50 ml @ 50 mls/hr Q24H IVPB Last administered on 09/12/18at 14:24; Admin Dose 50 MLS/HR; Start 09/12/18 at 14:00 Norepinephrine 32 mg/Dextrose 250 ml @ 0.47 mls/hr TITRATE IV Last administered on 09/12/18at 13:47; Admin Dose 0.94 MLS/HR; Start 09/12/18 at 14:30 Vancomycin HCl (Vanco Iv Per Pharmacy) VANCOMYCIN PER PHARMACY PER PROTOCOL XX ; Start 09/12/18 at 13:30 Piperacillin Sod/ Tazobactam Sod 50 ml @ 100 mls/hr Q8 IVPB Last administered on 09/12/18at 14:13; Admin Dose 100 MLS/HR; Start 09/12/18 at 14:00 Vancomycin HCl 2 gm/Sodium Chloride 500 ml @ 125 mls/hr ONCE IVPB Last administered on 09/12/18at 14:24; Admin Dose 125 MLS/HR; Start 09/12/18 at 15:00; Stop 09/12/18 at 18:59 NIRAJ BARNES Sep 12, 2018 15:06
[2018-09-12] MEDS: HEPARIN 5,000 UNIT/1 ML VIAL SC SCH (21:00)
[2018-09-12] MEDS ORDERED: DEXTROSE 50% 50 ML SYRINGE IV PRN ×2 (21:30)
[2018-09-12] MEDS ORDERED: GLUCAGON 1 MG INJ IM PRN (21:30)
[2018-09-12] MEDS ORDERED: GLUCOSE GEL 15 GRAM TUBE BUCCAL PRN (21:30)
[2018-09-12] MEDS ORDERED: GLUCOSE GEL 15 GRAM TUBE PO PRN ×2 (21:30)
[2018-09-12] MEDS ORDERED: INSULIN ASPART [NOVOLOG] 3 ML PEN SC SCH (22:30)
[2018-09-12] MEDS: INSULIN ASPART [NOVOLOG] 3 ML PEN SC SCH (23:47)
[2018-09-13] VITALS (118 sets, daily range): BP systolic 76–130; BP diastolic 24–90; PULSE 98–118; RESP 18–32; Ht 185.4 cm; Wt 176.3 kg
[2018-09-13] MEDS: DEXTROSE 5%-0.45% NACL 1,000 ML IV SCH (00:40)
[2018-09-13] MEDS: ALBUTEROL HFA 8 GM INHALER INH SCH ×4 (01:32→19:24)
[2018-09-13] MEDS: ACETYLCYSTEINE 20% 4 ML VIAL NEB SCH ×4 (01:35→19:24)
[2018-09-13] MEDS: ACCU-CHEK XX SCH ×3 (01:53→20:31)
[2018-09-13] MEDS: INSULIN ASPART [NOVOLOG] 3 ML PEN SC SCH ×5 (04:00→20:00)
[2018-09-13] MEDS: PIPER-TAZO 2.25 GM (PMX) 50 ML IVPB SCH ×3 (05:10→21:48)
[2018-09-13] MEDS ORDERED: PANTOPRAZOLE 40 MG INJ IV SCH (06:00)
[2018-09-13] MEDS: IPRATROPIUM (HFA) 12.9 GM INHALER INH SCH ×3 (08:11→19:24)
--- NOTE | 2018-09-13 08:33 | CONS ---
Assessment/Plan Assessment/Plan Hospital Course (Demo Recall) 1. Acute renal failure. He continues to be anuric. He is scheduled for a hemodialysis treatment today . He is now on norepinephrine for blood pressure support. 2. Respiratory failure . He has a tracheostomy and is back on the ventilator. 3. Fever, he is being treated with broad-spectrum antibiotics. He continues to have fever . Blood cultures were done. He leaked fluid into the peritoneum when his gastric tube became dislodged . He had a fluid-filled collection in his abdomen which was drained yesterday by the radiologist. He does have a tube left in place to continue draining. 4. Morbid obesity 5. Encephalopathy , 6. Hypotension, he is on norepinephrine for blood pressure support. 7. [place] esophagitis, he is on fluconazole Consultation Date/Type/Reason Admit Date/Time Aug 08, 2018 at 17:18 Initial Consult Date 09/06/18 Type of Consult Nephrology Requesting Provider: TATI CARDOZA Date/Time of Note DATE: 09/13/18 TIME: 08:27 24 HR Interval Summary Free Text/Dictation This patient is being seen in nephrologic follow-up. He is in the intensive care unit. He is unresponsive, he has a tracheostomy and is back on the ventilator. Subjective hx not possible: pt non-verbal Exam/Review of Systems Exam Vitals Vital Signs Date Temp Pulse Resp B/P (MAP) Pulse Ox O2 O2 Flow FiO2 Time Delivery Rate 09/13/18 109 28 122/46 98 06:45 (71) 09/13/18 Mechanical 06:00 Ventilator 09/13/18 40 05:43 09/13/18 99.0 04:00 Intake and Output 09/12/18 09/12/18 09/13/18 1515:00 23:00 07:00 IntakeIntake Total 586.89 ml 1310.07 ml 427.31 ml OutputOutput Total 40 ml 75 ml 170 ml BalanceBalance 546.89 ml 1235.07 ml 257.31 ml Constitutional: non-verbal, obese Respiratory: diminished breath sounds Cardiovascular: regular rate and rhythm, edema Gastrointestinal: soft Extremities: edema Results Result Diagram: 09/13/18 0430 09/13/18 0430 Results 24hrs Laboratory Tests Test 09/12/18 09:52 09/12/18 11:47 09/12/18 14:56 09/12/18 18:48 White Blood Count 24.6 H 26.7 H Red Blood Count 3.66 L 3.79 L Hemoglobin 8.4 L 7.9 L 8.9 L 7.4 L Hematocrit 30.2 L 27.5 L 30.9 L 26.3 L Mean Corpuscular 82.5 81.5 L Volume Mean Corpuscular 23.0 L 23.5 L Hemoglobin Mean Corpuscular 27.8 L 28.8 L Hemoglobin Concent Red Cell 23.0 H 22.5 H Distribution Width Platelet Count 249 293 Mean Platelet Volume 10.9 H 10.6 H Immature 6.600 H 6.800 H Granulocytes % Neutrophils % 77.5 H Segmented 63 76 Neutrophils % (Manual) Band Neutrophils % 14 H 4 (Manual) Lymphocytes % 9.3 L Lymphocytes % 9 L 14 L (Manual) Monocytes % 6.4 Monocytes % (Manual) 7 3 Eosinophils % 0.0 Eosinophils % 1 (Manual) Basophils % 0.2 Basophils % (Manual) 1 Metamyelocytes % 3 H (manual) Promyelocytes % 2 H (Manual) Nucleated Red Blood 0.4 H 2 H Cells % Immature 1.610 H 1.810 H Granulocytes # Neutrophils # 19.0 H Neutrophils # 16.3 H 20.6 H (Manual) Band Neutrophils # 3.4 H 1.0 H Lymphocytes (Manual) 2.2 3.7 H Lymphocytes # 2.3 Monocytes # 1.6 H Monocytes # (Manual) 1.7 H 0.8 Eosinophils # 0.0 Basophils # 0.1 Basophils # (Manual) 0.2 H Metamyelocytes # 0.7 H Promyelocytes # 0.4 H Nucleated Red Blood 0.1 H Cells # Platelet Estimate NORMAL NORMAL Giant Platelets 2 H 3 H Polychromasia 2+ 1+ Hypochromasia 2+ 2+ Poikilocytosis 3+ 1+ Anisocytosis 2+ 2+ Microcytosis 1+ 1+ Macrocytosis 1+ 1+ Target Cells 1+ Ovalocytes 1+ 1+ Myelocytes % 3 H (Manual) Myelocytes # 0.8 H Test 09/12/18 19:37 09/12/18 20:51 09/12/18 23:45 09/13/18 04:14 Bedside Glucose 80 74 86 Hemoglobin 9.2 #L Hematocrit 32.9 #L Test 09/13/18 04:30 09/13/18 08:11 White Blood Count 22.0 H Red Blood Count 3.35 L Hemoglobin 7.9 L Hematocrit 28.1 L Mean Corpuscular 83.9 Volume Mean Corpuscular 23.6 L Hemoglobin Mean Corpuscular 28.1 L Hemoglobin Concent Red Cell 22.5 H Distribution Width Platelet Count 261 Mean Platelet Volume 10.9 H Immature 7.100 H Granulocytes % Neutrophils % 75.3 Lymphocytes % 11.4 L Monocytes % 5.5 Eosinophils % 0.1 Basophils % 0.6 Nucleated Red Blood 0.6 H Cells % Immature 1.550 H Granulocytes # Neutrophils # 16.6 H Lymphocytes # 2.5 Monocytes # 1.2 H Eosinophils # 0.0 Basophils # 0.1 Nucleated Red Blood 0.1 H Cells # Sodium Level 133 L Potassium Level 5.3 H Chloride Level 95 L Carbon Dioxide Level 21 Anion Gap 17 H Blood Urea Nitrogen 95 H Creatinine 6.94 H Est Glomerular 9 L Filtrat Rate mL/min Glucose Level 79 Lactic Acid Level 2.9 *H Calcium Level 8.3 L Phosphorus Level 9.3 H Magnesium Level 2.0 Total Bilirubin 0.4 Direct Bilirubin 0.40 H Indirect Bilirubin 0.0 Aspartate Amino 39 Transf (AST/SGOT) Alanine 46 Aminotransferase (AL T/SGPT) Alkaline Phosphatase 139 H Total Protein 5.5 L Albumin 2.2 L Globulin 3.30 H Albumin/Globulin 0.66 Ratio Bedside Glucose 74 Medications Medication Current Medications IV Flush (NS 3 ml) 3 ml PER PROTOCOL IV ; Start 08/08/18 at 17:30 Ondansetron HCl (Zofran Inj) 4 mg Q6H PRN IV NAUSEA; Start 08/08/18 at 17:30 Naphazoline HCl (Clear Eyes / Naphcon) 2 drop QID BOTH EYES Last administered on 09/12/18at 21:51; Admin Dose 2 DROP; Start 08/16/18 at 18:14 Acetaminophen (Tylenol Liquid) 650 mg Q6H PRN NGT MILD PAIN(1-3)OR ELEVATED TEMP Last administered on 09/12/18at 16:12; Admin Dose 650 MG; Start 08/17/18 at 00:57 Lorazepam (Ativan) 1 mg Q6H PRN IV AGITATION Last administered on 09/08/18at 23:40; Admin Dose 1 MG; Start 08/28/18 at 02:30 Morphine Sulfate (morphine) 2 mg Q2H PRN IV SEVERE PAIN LEVEL 7-10 Last administered on 09/10/18 17:39; Admin Dose 2 MG; Start 08/28/18 at 09:00 Scopolamine (Transderm-Scop) 1 patch Q72H TRANSDERM Last administered on 09/12/18 12:11; Admin Dose 1 PATCH; Start 08/31/18 at 11:30 Heparin Sodium (Porcine) (Heparin (5000 Units/1ml)) 5,000 unit Q12 SC Last administered on 09/10/18 21:36; Admin Dose 5,000 UNIT; Start 09/06/18 at 21:00 IV Flush (NS 10 ml) 10 ml PRN PRN IV IV PROTOCOL; Start 09/06/18 at 17:30 Albumin Human 100 ml @ 100 mls/hr DURING DIALYSIS PRN IV BLOOD PRESSURE SUPPORT Last administered on 09/07/18 18:04; Admin Dose 100 MLS/HR; Start 09/07/18 at 09:30 Albuterol (Ventolin Hfa) 4 puff Q6H RESP THERAPY INH Last administered on 09/13/18 08:11; Admin Dose 4 PUFF; Start 09/08/18 at 09:00 Ipratropium [place] (Atrovent Hfa) 4 puff Q6HWA RESP THERAPY INH Last adminis tered on 09/13/18 08:11; Admin Dose 4 PUFF; Start 09/08/18 at 09:00 Heparin Sodium (Porcine) (Heparin (1000 Units/ml)) 3,100 unit PRN CATHETER Last administered on 09/11/18 11:17; Admin Dose 3,100 UNIT; Start 09/08/18 at 14:00 Polyethylene Glycol (Miralax) 17 gm DAILY PRN GTB CONSTIPATION; Start 09/10/18 at 09:30 Acetylcysteine (Mucomyst) 1 ml Q6H RESP THERAPY NEB Last administered on 09/13/18 08:12; Admin Dose 1 ML; Start 09/10/18 at 14:00 Phenylephrine HCl 80 mg/Dextrose 250 ml @ 18.75 mls/ hr TITRATE IV Last administered on 09/12/18 23:21; Admin Dose 56.25 MLS/HR; Start 09/11/18 at 12:00 Multivitamins (Multivitamin) 30 ml DAILY GTB ; Start 09/13/18 at 09:00 Folic Acid (Folic Acid) 1 mg DAILY GTB ; Start 09/13/18 at 09:00 Zinc Sulfate (Zinc Sulfate) 220 mg DAILY GTB ; Start 09/13/18 at 09:00 Ascorbic Acid (Vitamin C) 250 mg DAILY GTB ; Start 09/13/18 at 09:00 Fluconazole/ Sodium Chloride 50 ml @ 50 mls/hr Q24H IVPB Last administered on 09/12/18at 14:24; Admin Dose 50 MLS/HR; Start 09/12/18 at 14:00 Norepinephrine 32 mg/Dextrose 250 ml @ 0.47 mls/hr TITRATE IV Last admin istered on 09/12/18at 13:47; Admin Dose 0.94 MLS/HR; Start 09/12/18 at 14:30 Vancomycin HCl (Vanco Iv Per Pharmacy) VANCOMYCIN PER PHARMACY PER PROTOCOL XX ; Start 09/12/18 at 13:30 Piperacillin Sod/ Tazobactam Sod 50 ml @ 100 mls/hr Q8 IVPB Last administered on 09/13/18at 05:10; Admin Dose 100 MLS/HR; Start 09/12/18 at 14:00 Pantoprazole 80 mg/Sodium Chloride 100 ml @ 10 mls/hr Q10H IV Last adm inistered on 09/12/18at 23:18; Admin Dose 10 MLS/HR; Start 09/12/18 at 15:30 Diagnostic Test (Pha) (Accu-Chek) 1 ea 02 XX ; Start 09/13/18 at 02:00 Miscellaneous Information 1 ea NOTE XX ; Start 09/12/18 at 21:30 Glucose (Glutose) 15 gm Q15M PRN PO DECREASED GLUCOSE; Start 09/12/18 at 21:30 Glucose (Glutose) 22.5 gm Q15M PRN PO DECREASED GLUCOSE; Start 09/12/18 at 21:30 Dextrose (D50w Syringe) 25 ml Q15M PRN IV DECREASED GLUCOSE; Start 09/12/18 at 21:30 Dextrose (D50w Syringe) 50 ml Q15M PRN IV DECREASED GLUCOSE; Start 09/12/18 at 21:30 Glucagon (Glucagen) 1 mg Q15M PRN IM DECREASED GLUCOSE; Start 09/12/18 at 21:30 Glucose (Glutose) 15 gm Q15M PRN BUCCAL DECREASED GLUCOSE; Start 09/12/18 at 21:30 Insulin Aspart (Novolog Insulin Pen) NOVOLOG *MILD* ALGORI... Q4H SC ; Start 09/13/18 at 00:00 Dextrose/Sodium Chloride 1,000 ml @ 30 mls/hr Q24H IV Last administered on 09/13/18at 00:40; Admin Dose 30 MLS/HR; Start 09/13/18 at 00:00 LELAND HOPKINS MD Sep 13, 2018 08:33
[2018-09-13] MEDS: HEPARIN 5,000 UNIT/1 ML VIAL SC SCH (09:00)
[2018-09-13] MEDS: MULTIVITAMINS 30 ML CUP GTB SCH (09:08)
[2018-09-13] MEDS: FOLIC ACID 1 MG TAB GTB SCH (09:09)
[2018-09-13] MEDS: ZINC SULFATE 220 MG CAP GTB SCH (09:09)
[2018-09-13] MEDS: ASCORBIC ACID 250 MG TAB GTB SCH (09:09)
[2018-09-13] MEDS: BALSAM PERU/CASTOR OIL 60 GM TUBE TOP SCH ×2 (09:10→20:31)
[2018-09-13] MEDS: NAPHAZOLINE 0.012% 15 ML OPH BOTH EYES SCH ×4 (09:10→20:31)
--- NOTE | 2018-09-13 09:52 | PN ---
Date/Time of Note Date/Time of Note DATE: 09/13/18 TIME: 09:46 Assessment/Plan VTE Prophylaxis Risk score (from Nsg)>0 risk: 9 SCD applied (from Nsg): Yes Pharmacological prophylaxis: other Lines/Catheters IV Catheter Type (from Nrsg): Trialysis Urinary Cath still in place: No Assessment/Plan Hospital Course S: Pt having minimal drainage from right flank abdominal fluid collection tube. Back on Protonix drip since yesterday secondary to low hemoglobin levels noticed yesterday. No signs of any overt bleeding however presently. Presently getting dialysis and seen by renal team this morning. NG tube feeds still being held since yesterday. O: VS - see below PE: Gen: Morbidly obese man lying in bed Neck: Obese, trach, no lymphadenopathy appreciated HEENT: Clear oropharynx, moist mucous membranes Card: Sinus tach, distant heart sounds Pulm: distant lung sounds. Abd: Morbidly obese, soft, nontender Ext: Bilateral LE chronic venous stasis changes. Neuro: No focal deficits Assessment/Plan: 32yo Morbidly obese man who had presented with shortness of breath currently managed as follows: #. Hypoxic/hypercapnic respiratory failure-Secondary to ANDREW, exacerbated by pneumonia, underlying COPD with blebs now seen on CXR-Intubated , status post trach 08/24 -still with secretions requiring frequent suctioning and copious secretions-steroids added 09/05/18-back on vent 09/07/18. -Continue mechanical ventilation per pulmonary recommendations via trach, Mucomyst, duo nebs as needed, antibiotics -Scopolamine for secretions #. Sepsis -still on pressor support for the last 72 hours, no fevers noted overnight. Respiratory cultures grew MDR Acinetobacter. Again patient had drainage of the abdominal fluid collection 2 days ago as well, potential source. - continue current antibiotics: tigecycline, ceftazidime, Flagyl, follow-up ID recommendations - Monitor drainage from LUPE drain in the intra-abdominal area, follow-up ID an d surgery recommendations. - Follow-up CBC from this morning # Encephalopathy, toxic metabolic, r/o hypoxic ischemic-patient remains confused intermittently, may have suffered a brain insult, unable to get MRI or CT / weight -appreciate neurology consult, will follow recs -attempted to cut back on dosing for Seroquel, but patient is still quite confused, Switched to BID dosing -Monitor, follow-up neurology recommendations #. renal insufficiency now started on hemodialysis -schaeefr was changed to r/o obstruction 09/06/18-1st session 09/07/18, -Continue HD per renal #. Dislodged G tube with iatrogenic fluid pocket of extravasated tube feed-again status post IR drainage of large pocket of tube feed -abdominal fluid collection noted-Again status post US-guided drainage 2 days ago, monitor drainage, also status post EGD 2 days ago with candidiasis found in the esophagus, along with esophageal ulceration but no active bleeding noted. - follow-up post procedure recommendations, drainage from the abdominal site -Continue to hold NG tube feeds for now -Fluconazole IV for esophageal candidiasis, follow up GI recommendations #. Chronic hypochromic anemia -stable, monitor #. Severe Obesity-high risk for skin breakdown-appears controlled calories while on tube feeds-has lost about 40 pounds so far since admission per nursing, but much of this could be diuresis. -Continue to monitor for now, counseled on weight loss #. Debility and lethargy -PT limited by patient's mental status #. Hyperbilirubinemia - predominantly direct, alkaline phosphatase is normal - liver USS showed diffuse fatty liver -Follow-up am labs with hepatitis screen #. Tachycardia -related to fevers-sepsis per cardio, appreciate input -Monitor, continue IV fluids, wean off pressor support as tolerated Dispo: Given Actinobacter multidrug-resistant respiratory infection, still on pressor support, needs for dialysis, trach, NG tube feeds, abdominal fluid collection status post IR guided drainage, overall poor prognosis. Critical care time spent in patient care today equals 40 minutes. Result Diagram: 09/13/1842909/[id number]/18429 Results 24hrs Laboratory Tests Test 09/12/18 09:52 09/12/18 11:47 09/12/18 14:56 09/12/18 18:48 White Blood Count 24.6 H 26.7 H Red Blood Count 3.66 L 3.79 L Hemoglobin 8.4 L 7.9 L 8.9 L 7.4 L Hematocrit 30.2 L 27.5 L 30.9 L 26.3 L Mean Corpuscular 82.5 81.5 L Volume Mean Corpuscular 23.0 L 23.5 L Hemoglobin Mean Corpuscular 27.8 L 28.8 L Hemoglobin Concent Red Cell 23.0 H 22.5 H Distribution Width Platelet Count 249 293 Mean Platelet Volume 10.9 H 10.6 H Immature 6.600 H 6.800 H Granulocytes % Neutrophils % 77.5 H Segmented 63 76 Neutrophils % (Manual) Band Neutrophils % 14 H 4 (Manual) Lymphocytes % 9.3 L Lymphocytes % 9 L 14 L (Manual) Monocytes % 6.4 Monocytes % (Manual) 7 3 Eosinophils % 0.0 Eosinophils % 1 (Manual) Basophils % 0.2 Basophils % (Manual) 1 Metamyelocytes % 3 H (manual) Promyelocytes % 2 H (Manual) Nucleated Red Blood 0.4 H 2 H Cells % Immature 1.610 H 1.810 H Granulocytes # Neutrophils # 19.0 H Neutrophils # 16.3 H 20.6 H (Manual) Band Neutrophils # 3.4 H 1.0 H Lymphocytes (Manual) 2.2 3.7 H Lymphocytes # 2.3 Monocytes # 1.6 H Monocytes # (Manual) 1.7 H 0.8 Eosinophils # 0.0 Basophils # 0.1 Basophils # (Manual) 0.2 H Metamyelocytes # 0.7 H Promyelocytes # 0.4 H Nucleated Red Blood 0.1 H Cells # Platelet Estimate NORMAL NORMAL Giant Platelets 2 H 3 H Polychromasia 2+ 1+ Hypochromasia 2+ 2+ Poikilocytosis 3+ 1+ Anisocytosis 2+ 2+ Microcytosis 1+ 1+ Macrocytosis 1+ 1+ Target Cells 1+ Ovalocytes 1+ 1+ Myelocytes % 3 H (Manual) Myelocytes # 0.8 H Test 09/12/18 19:37 09/12/18 20:51 09/12/18 23:45 09/13/18 04:14 Bedside Glucose 80 74 86 Hemoglobin 9.2 #L Hematocrit 32.9 #L Test 09/13/18 04:30 09/13/18 08:11 White Blood Count 22.0 H Red Blood Count 3.35 L Hemoglobin 7.9 L Hematocrit 28.1 L Mean Corpuscular 83.9 Volume Mean Corpuscular 23.6 L Hemoglobin Mean Corpuscular 28.1 L Hemoglobin Concent Red Cell 22.5 H Distribution Width Platelet Count 261 Mean Platelet Volume 10.9 H Immature 7.100 H Granulocytes % Neutrophils % 75.3 Lymphocytes % 11.4 L Monocytes % 5.5 Eosinophils % 0.1 Basophils % 0.6 Nucleated Red Blood 0.6 H Cells % Immature 1.550 H Granulocytes # Neutrophils # 16.6 H Lymphocytes # 2.5 Monocytes # 1.2 H Eosinophils # 0.0 Basophils # 0.1 Nucleated Red Blood 0.1 H Cells # Sodium Level 133 L Potassium Level 5.3 H Chloride Level 95 L Carbon Dioxide Level 21 Anion Gap 17 H Blood Urea Nitrogen 95 H Creatinine 6.94 H Est Glomerular 9 L Filtrat Rate mL/min Glucose Level 79 Lactic Acid Level 2.9 *H Calcium Level 8.3 L Phosphorus Level 9.3 H Magnesium Level 2.0 Total Bilirubin 0.4 Direct Bilirubin 0.40 H Indirect Bilirubin 0.0 Aspartate Amino 39 Transf (AST/SGOT) Alanine 46 Aminotransferase (AL T/SGPT) Alkaline Phosphatase 139 H Total Protein 5.5 L Albumin 2.2 L Globulin 3.30 H Albumin/Globulin 0.66 Ratio Bedside Glucose 74 Exam/Review of Systems Exam Vitals Vital Signs Date Temp Pulse Resp B/P (MAP) Pulse Ox O2 O2 Flow FiO2 Time Delivery Rate 09/13/18 109 28 122/46 98 06:45 (71) 09/13/18 Mechanical 06:00 Ventilator 09/13/18 40 05:43 09/13/18 99.0 04:00 Intake and Output 09/12/18 09/12/18 09/13/18 1515:00 23:00 07:00 IntakeIntake Total 586.89 ml 1310.07 ml 427.31 ml OutputOutput Total 40 ml 75 ml 170 ml BalanceBalance 546.89 ml 1235.07 ml 257.31 ml Results Results 24hrs Laboratory Tests Test 09/12/18 09:52 09/12/18 11:47 09/12/18 14:56 09/12/18 18:48 White Blood Count 24.6 H 26.7 H Red Blood Count 3.66 L 3.79 L Hemoglobin 8.4 L 7.9 L 8.9 L 7.4 L Hematocrit 30.2 L 27.5 L 30.9 L 26.3 L Mean Corpuscular 82.5 81.5 L Volume Mean Corpuscular 23.0 L 23.5 L Hemoglobin Mean Corpuscular 27.8 L 28.8 L Hemoglobin Concent Red Cell 23.0 H 22.5 H Distribution Width Platelet Count 249 293 Mean Platelet Volume 10.9 H 10.6 H Immature 6.600 H 6.800 H Granulocytes % Neutrophils % 77.5 H Segmented 63 76 Neutrophils % (Manual) Band Neutrophils % 14 H 4 (Manual) Lymphocytes % 9.3 L Lymphocytes % 9 L 14 L (Manual) Monocytes % 6.4 Monocytes % (Manual) 7 3 Eosinophils % 0.0 Eosinophils % 1 (Manual) Basophils % 0.2 Basophils % (Manual) 1 Metamyelocytes % 3 H (manual) Promyelocytes % 2 H (Manual) Nucleated Red Blood 0.4 H 2 H Cells % Immature 1.610 H 1.810 H Granulocytes # Neutrophils # 19.0 H Neutrophils # 16.3 H 20.6 H (Manual) Band Neutrophils # 3.4 H 1.0 H Lymphocytes (Manual) 2.2 3.7 H Lymphocytes # 2.3 Monocytes # 1.6 H Monocytes # (Manual) 1.7 H 0.8 Eosinophils # 0.0 Basophils # 0.1 Basophils # (Manual) 0.2 H Metamyelocytes # 0.7 H Promyelocytes # 0.4 H Nucleated Red Blood 0.1 H Cells # Platelet Estimate NORMAL NORMAL Giant Platelets 2 H 3 H Polychromasia 2+ 1+ Hypochromasia 2+ 2+ Poikilocytosis 3+ 1+ Anisocytosis 2+ 2+ Microcytosis 1+ 1+ Macrocytosis 1+ 1+ Target Cells 1+ Ovalocytes 1+ 1+ Myelocytes % 3 H (Manual) Myelocytes # 0.8 H Test 09/12/18 19:37 09/12/18 20:51 09/12/18 23:45 09/13/18 04:14 Bedside Glucose 80 74 86 Hemoglobin 9.2 #L Hematocrit 32.9 #L Test 09/13/18 04:30 09/13/18 08:11 White Blood Count 22.0 H Red Blood Count 3.35 L Hemoglobin 7.9 L Hematocrit 28.1 L Mean Corpuscular 83.9 Volume Mean Corpuscular 23.6 L Hemoglobin Mean Corpuscular 28.1 L Hemoglobin Concent Red Cell 22.5 H Distribution Width Platelet Count 261 Mean Platelet Volume 10.9 H Immature 7.100 H Granulocytes % Neutrophils % 75.3 Lymphocytes % 11.4 L Monocytes % 5.5 Eosinophils % 0.1 Basophils % 0.6 Nucleated Red Blood 0.6 H Cells % Immature 1.550 H Granulocytes # Neutrophils # 16.6 H Lymphocytes # 2.5 Monocytes # 1.2 H Eosinophils # 0.0 Basophils # 0.1 Nucleated Red Blood 0.1 H Cells # Sodium Level 133 L Potassium Level 5.3 H Chloride Level 95 L Carbon Dioxide Level 21 Anion Gap 17 H Blood Urea Nitrogen 95 H Creatinine 6.94 H Est Glomerular 9 L Filtrat Rate mL/min Glucose Level 79 Lactic Acid Level 2.9 *H Calcium Level 8.3 L Phosphorus Level 9.3 H Magnesium Level 2.0 Total Bilirubin 0.4 Direct Bilirubin 0.40 H Indirect Bilirubin 0.0 Aspartate Amino 39 Transf (AST/SGOT) Alanine 46 Aminotransferase (AL T/SGPT) Alkaline Phosphatase 139 H Total Protein 5.5 L Albumin 2.2 L Globulin 3.30 H Albumin/Globulin 0.66 Ratio Bedside Glucose 74 Medications Medication Current Medications IV Flush (NS 3 ml) 3 ml PER PROTOCOL IV ; Start 08/08/18 at 17:30 Ondansetron HCl (Zofran Inj) 4 mg Q6H PRN IV NAUSEA; Start 08/08/18 at 17:30 Naphazoline HCl (Clear Eyes / Naphcon) 2 drop QID BOTH EYES Last administered on 09/13/18at 09:10; Admin Dose 2 DROP; Start 08/16/18 at 18:14 Acetaminophen (Tylenol Liquid) 650 mg Q6H PRN NGT MILD PAIN(1-3)OR ELEVATED TEMP Last administered on 09/12/18at 16:12; Admin Dose 650 MG; Start 08/17/18 at 00:57 Lorazepam (Ativan) 1 mg Q6H PRN IV AGITATION Last administered on 09/08/18at 23:40; Admin Dose 1 MG; Start 08/28/18 at 02:30 Morphine Sulfate (morphine) 2 mg Q2H PRN IV SEVERE PAIN LEVEL 7-10 Last administered on 09/10/18at 17:39; Admin Dose 2 MG; Start 08/28/18 at 09:00 Scopolamine (Transderm-Scop) 1 patch Q72H TRANSDERM Last administered on 09/12/18at 12:11; Admin Dose 1 PATCH; Start 08/31/18 at 11:30 IV Flush (NS 10 ml) 10 ml PRN PRN IV IV PROTOCOL; Start 09/06/18 at 17:30 Albumin Human 100 ml @ 100 mls/hr DURING DIALYSIS PRN IV BLOOD PRESSURE SUPPORT Last administered on 09/07/18 18:04; Admin Dose 100 MLS/HR; Start 09/07/18 at 09:30 Albuterol (Ventolin Hfa) 4 puff Q6H RESP THERAPY INH Last administered on 09/13/18 08:11; Admin Dose 4 PUFF; Start 09/08/18 at 09:00 Ipratropium [place] (Atrovent Hfa) 4 puff Q6HWA RESP THERAPY INH Last administered on 09/13/18 08:11; Admin Dose 4 PUFF; Start 09/08/18 at 09:00 Heparin Sodium (Porcine) (Heparin (1000 Units/ml)) 3,100 unit PRN CATHETER Last administered on 09/11/18 11:17; Admin Dose 3,100 UNIT; Start 09/08/18 at 14:00 Polyethylene Glycol (Miralax) 17 gm DAILY PRN GTB CONSTIPATION; Start 09/10/18 at 09:30 Acetylcysteine (Mucomyst) 1 ml Q6H RESP THERAPY NEB Last administered on 09/13/18 08:12; Admin Dose 1 ML; Start 09/10/18 at 14:00 Phenylephrine HCl 80 mg/Dextrose 250 ml @ 18.75 mls/ hr TITRATE IV Last administered on 09/12/18 23:21; Admin Dose 56.25 MLS/HR; Start 09/11/18 at 12:00 Multivitamins (Multivitamin) 30 ml DAILY GTB Last administered on 09/13/18 09:08; Admin Dose 30 ML; Start 09/13/18 at 09:00 Folic Acid (Folic Acid) 1 mg DAILY GTB Last administered on 09/13/18 09:09; Admin Dose 1 MG; Start 09/13/18 at 09:00 Zinc Sulfate (Zinc Sulfate) 220 mg DAILY GTB Last administered on 09/13/18 09:09; Admin Dose 220 MG; Start 09/13/18 at 09:00 Ascorbic Acid (Vitamin C) 250 mg DAILY GTB Last administered on 09/13/18 09:09; Admin Dose 250 MG; Start 09/13/18 at 09:00 Fluconazole/ Sodium Chloride 50 ml @ 50 mls/hr Q24H IVPB Last administered on 09/12/18at 14:24; Admin Dose 50 MLS/HR; Start 09/12/18 at 14:00 Norepinephrine 32 mg/Dextrose 250 ml @ 0.47 mls/hr TITRATE IV Last administered on 09/12/18at 13:47; Admin Dose 0.94 MLS/HR; Start 09/12/18 at 14:30 Vancomycin HCl (Vanco Iv Per Pharmacy) VANCOMYCIN PER PHARMACY PER PROTOCOL XX ; Start 09/12/18 at 13:30 Piperacillin Sod/ Tazobactam Sod 50 ml @ 100 mls/hr Q8 IVPB Last administered on 09/13/18at 05:10; Admin Dose 100 MLS/HR; Start 09/12/18 at 14:00 Pantoprazole 80 mg/Sodium Chloride 100 ml @ 10 mls/hr Q10H IV Last administered on 09/12/18at 23:18; Admin Dose 10 MLS/HR; Start 09/12/18 at 15:30 Diagnostic Test (Pha) (Accu-Chek) 1 ea 02 XX ; Start 09/13/18 at 02:00 Miscellaneous Information 1 ea NOTE XX ; Start 09/12/18 at 21:30 Glucose (Glutose) 15 gm Q15M PRN PO DECREASED GLUCOSE; Start 09/12/18 at 21:30 Glucose (Glutose) 22.5 gm Q15M PRN PO DECREASED GLUCOSE; Start 09/12/18 at 21:30 Dextrose (D50w Syringe) 25 ml Q15M PRN IV DECREASED GLUCOSE; Start 09/12/18 at 21:30 Dextrose (D50w Syringe) 50 ml Q15M PRN IV DECREASED GLUCOSE; Start 09/12/18 at 21:30 Glucagon (Glucagen) 1 mg Q15M PRN IM DECREASED GLUCOSE; Start 09/12/18 at 21:30 Glucose (Glutose) 15 gm Q15M PRN BUCCAL DECREASED GLUCOSE; Start 09/12/18 at 21:30 Insulin Aspart (Novolog Insulin Pen) NOVOLOG *MILD* ALGORI... Q4H SC ; Start 09/13/18 at 00:00 Dextrose/Sodium Chloride 1,000 ml @ 30 mls/hr Q24H IV Last administered on 09/13/18at 00:40; Admin Dose 30 MLS/HR; Start 09/13/18 at 00:00 RC GO Sep 13, 2018 09:52
[2018-09-13] MEDS: PHENYLephrine 80 MG in DEXTROSE 5% 242 ML IV SCH ×2 (10:07→17:42)
--- NOTE | 2018-09-13 11:05 | CONS ---
Consult Date/Type/Reason Admit Date/Time Aug 08, 2018 at 17:18 Initial Consult Date 08/09/18 Type of Consult Pulmonary Requesting Provider: TATI CARDOZA Date/Time of Note DATE: 09/13/18 TIME: 11:03 Subjective No significant changes. Breathing remains labored continues hemodialysis this morning on 2 vasopressors. Objective Vital Signs Date Temp Pulse Resp B/P (MAP) Pulse Ox O2 O2 Flow FiO2 Time Delivery Rate 09/13/18 104 10:10 09/13/18 26 98/37 (57) 94 Mechanical 09:25 Ventilator 09/13/18 40 08:00 09/13/18 99.0 04:00 Intake and Output 09/12/18 09/12/18 09/13/18 1515:00 23:00 07:00 IntakeIntake Total 586.89 ml 1310.07 ml 427.31 ml OutputOutput Total 40 ml 75 ml 170 ml BalanceBalance 546.89 ml 1235.07 ml 257.31 ml Exam GENERAL: Obese young gentleman tracheostomy on mechanical ventilation VITAL SIGNS: per chart NECK: Supple. No JVD or lymphadenopathy. CARDIAC EXAM: S1, S2. No added sounds or murmurs. CHEST: Diminished air entry bilaterally. ABDOMEN: Soft, nontender. No guarding or rebound. Decreased bowel sounds EXTREMITIES: No cyanosis, clubbing, edema +2 NEUROLOGIC: Generalized weakness. No focal deficits. Vent Setting Ventilator Support Mode: AC Fraction of Inspired Oxygen pe: 40 Positive End Expiratory Pressu: 5.0 Results/Medications Result Diagram: 09/13/18 0430 09/13/18 0430 Results 24 hrs Laboratory Tests Test 09/12/18 11:47 09/12/18 14:56 09/12/18 18:48 09/12/18 19:37 Hemoglobin 7.9 L 8.9 L 7.4 L Hematocrit 27.5 L 30.9 L 26.3 L White Blood Count 26.7 H Red Blood Count 3.79 L Mean Corpuscular 81.5 L Volume Mean Corpuscular 23.5 L Hemoglobin Mean Corpuscular 28.8 L Hemoglobin Concent Red Cell 22.5 H Distribution Width Platelet Count 293 Mean Platelet Volume 10.6 H Immature 6.800 H Granulocytes % Neutrophils % Segmented 76 Neutrophils % (Manual) Band Neutrophils % 4 (Manual) Lymphocytes % Lymphocytes % 14 L (Manual) Monocytes % Monocytes % (Manual) 3 Eosinophils % Basophils % Myelocytes % 3 H (Manual) Nucleated Red Blood 2 H Cells % Immature 1.810 H Granulocytes # Neutrophils # Neutrophils # 20.6 H (Manual) Band Neutrophils # 1.0 H Lymphocytes (Manual) 3.7 H Lymphocytes # Monocytes # Monocytes # (Manual) 0.8 Eosinophils # Basophils # Myelocytes # 0.8 H Nucleated Red Blood Cells # Platelet Estimate NORMAL Giant Platelets 3 H Polychromasia 1+ Hypochromasia 2+ Poikilocytosis 1+ Anisocytosis 2+ Microcytosis 1+ Macrocytosis 1+ Ovalocytes 1+ Bedside Glucose 80 Test 09/12/18 20:51 09/12/18 23:45 09/13/18 04:14 09/13/18 04:30 Hemoglobin 9.2 #L 7.9 L Hematocrit 32.9 #L 28.1 L Bedside Glucose 74 86 White Blood Count 22.0 H Red Blood Count 3.35 L Mean Corpuscular 83.9 Volume Mean Corpuscular 23.6 L Hemoglobin Mean Corpuscular 28.1 L Hemoglobin Concent Red Cell 22.5 H Distribution Width Platelet Count 261 Mean Platelet Volume 10.9 H Immature 7.100 H Granulocytes % Neutrophils % 75.3 Lymphocytes % 11.4 L Monocytes % 5.5 Eosinophils % 0.1 Basophils % 0.6 Nucleated Red Blood 0.6 H Cells % Immature 1.550 H Granulocytes # Neutrophils # 16.6 H Lymphocytes # 2.5 Monocytes # 1.2 H Eosinophils # 0.0 Basophils # 0.1 Nucleated Red Blood 0.1 H Cells # Sodium Level 133 L Potassium Level 5.3 H Chloride Level 95 L Carbon Dioxide Level 21 Anion Gap 17 H Blood Urea Nitrogen 95 H Creatinine 6.94 H Est Glomerular 9 L Filtrat Rate mL/min Glucose Level 79 Lactic Acid Level 2.9 *H Calcium Level 8.3 L Phosphorus Level 9.3 H Magnesium Level 2.0 Total Bilirubin 0.4 Direct Bilirubin 0.40 H Indirect Bilirubin 0.0 Aspartate Amino 39 Transf (AST/SGOT) Alanine 46 Aminotransferase (AL T/SGPT) Alkaline Phosphatase 139 H Total Protein 5.5 L Albumin 2.2 L Globulin 3.30 H Albumin/Globulin 0.66 Ratio Test 09/13/18 08:11 Bedside Glucose 74 Medications Current Medications IV Flush (NS 3 ml) 3 ml PER PROTOCOL IV ; Start 08/08/18 at 17:30 Ondansetron HCl (Zofran Inj) 4 mg Q6H PRN IV NAUSEA; Start 08/08/18 at 17:30 Naphazoline HCl (Clear Eyes / Naphcon) 2 drop QID BOTH EYES Last administered on 09/13/18 09:10; Admin Dose 2 DROP; Start 08/16/18 at 18:14 Acetaminophen (Tylenol Liquid) 650 mg Q6H PRN NGT MILD PAIN(1-3)OR ELEVATED TEMP Last administered on 09/12/18 16:12; Admin Dose 650 MG; Start 08/17/18 at 00:57 Lorazepam (Ativan) 1 mg Q6H PRN IV AGITATION Last administered on 09/08/18 23:40; Admin Dose 1 MG; Start 08/28/18 at 02:30 Morphine Sulfate (morphine) 2 mg Q2H PRN IV SEVERE PAIN LEVEL 7-10 Last administered on 09/10/18 17:39; Admin Dose 2 MG; Start 08/28/18 at 09:00 Scopolamine (Transderm-Scop) 1 patch Q72H TRANSDERM Last administered on 09/12/18 12:11; Admin Dose 1 PATCH; Start 08/31/18 at 11:30 IV Flush (NS 10 ml) 10 ml PRN PRN IV IV PROTOCOL; Start 09/06/18 at 17:30 Albumin Human 100 ml @ 100 mls/hr DURING DIALYSIS PRN IV BLOOD PRESSURE SUPPORT Last administered on 09/07/18 18:04; Admin Dose 100 MLS/HR; Start 09/07/18 at 09:30 Albuterol (Ventolin Hfa) 4 puff Q6H RESP THERAPY INH Last administered on 09/13/18 08:11; Admin Dose 4 PUFF; Start 09/08/18 at 09:00 Ipratropium [place] (Atrovent Hfa) 4 puff Q6HWA RESP THERAPY INH Last adm inistered on 09/13/18 08:11; Admin Dose 4 PUFF; Start 09/08/18 at 09:00 Heparin Sodium (Porcine) (Heparin (1000 Units/ml)) 3,100 unit PRN CATHETER Last administered on 09/11/18 11:17; Admin Dose 3,100 UNIT; Start 09/08/18 at 14:00 Polyethylene Glycol (Miralax) 17 gm DAILY PRN GTB CONSTIPATION; Start 09/10/18 at 09:30 Acetylcysteine (Mucomyst) 1 ml Q6H RESP THERAPY NEB Last administered on 08:12; Admin Dose 1 ML; Start 09/10/18 at 14:00 Phenylephrine HCl 80 mg/Dextrose 250 ml @ 18.75 mls/ hr TITRATE IV Last administered on 09/13/18 10:07; Admin Dose 28.13 MLS/HR; Start 09/11/18 at 12:00 Multivitamins (Multivitamin) 30 ml DAILY GTB Last administered on 09/13/18 09:08; Admin Dose 30 ML; Start 09/13/18 at 09:00 Folic Acid (Folic Acid) 1 mg DAILY GTB Last administered on 09/13/18 09:09; Admin Dose 1 MG; Start 09/13/18 at 09:00 Zinc Sulfate (Zinc Sulfate) 220 mg DAILY GTB Last administered on 09/13/18 09:09; Admin Dose 220 MG; Start 09/13/18 at 09:00 Ascorbic Acid (Vitamin C) 250 mg DAILY GTB Last administered on 09/13/18 09:09; Admin Dose 250 MG; Start 09/13/18 at 09:00 Fluconazole/ Sodium Chloride 50 ml @ 50 mls/hr Q24H IVPB Last administered on 09/12/18 14:24; Admin Dose 50 MLS/HR; Start 09/12/18 at 14:00 Norepinephrine 32 mg/Dextrose 250 ml @ 0.47 mls/hr TITRATE IV Last administered on 09/12/18 13:47; Admin Dose 0.94 MLS/HR; Start 09/12/18 at 14:30 Vancomycin HCl (Vanco Iv Per Pharmacy) VANCOMYCIN PER PHARMACY PER PROTOCOL XX ; Start 09/12/18 at 13:30 Piperacillin Sod/ Tazobactam Sod 50 ml @ 100 mls/hr Q8 IVPB Last administered on 09/13/18 05:10; Admin Dose 100 MLS/HR; Start 09/12/18 at 14:00 Pantoprazole 80 mg/Sodium Chloride 100 ml @ 10 mls/hr Q10H IV Last administered on 09/12/18 23:18; Admin Dose 10 MLS/HR; Start 09/12/18 at 15:30 Diagnostic Test (Pha) (Accu-Chek) 1 ea 02 XX ; Start 09/13/18 at 02:00 Miscellaneous Information 1 ea NOTE XX ; Start 09/12/18 at 21:30 Glucose (Glutose) 15 gm Q15M PRN PO DECREASED GLUCOSE; Start 09/12/18 at 21:30 Glucose (Glutose) 22.5 gm Q15M PRN PO DECREASED GLUCOSE; Start 09/12/18 at 21:30 Dextrose (D50w Syringe) 25 ml Q15M PRN IV DECREASED GLUCOSE; Start 09/12/18 at 21:30 Dextrose (D50w Syringe) 50 ml Q15M PRN IV DECREASED GLUCOSE; Start 09/12/18 at 21:30 Glucagon (Glucagen) 1 mg Q15M PRN IM DECREASED GLUCOSE; Start 09/12/18 at 21:30 Glucose (Glutose) 15 gm Q15M PRN BUCCAL DECREASED GLUCOSE; Start 09/12/18 at 21:30 Insulin Aspart (Novolog Insulin Pen) NOVOLOG *MILD* ALGORI... Q4H SC ; Start 09/13/18 at 00:00 Dextrose/Sodium Chloride 1,000 ml @ 30 mls/hr Q24H IV Last administered on 09/13/18at 00:40; Admin Dose 30 MLS/HR; Start 09/13/18 at 00:00 Assessment/Plan Hospital Course (Demo Recall) IMP: 1. Acute on chronic hypoxemic and hypercapnic respiratory failure, failed multiple weaning trials status post tracheostomy. Significant secretions, 2. G-tube was misplaced with tube feeding and abdominal cavity. 3. History of obesity hypoventilation syndrome and probable obstructive sleep apnea 4. Leukocytosis With ongoing fevers and persistent diarrhea. 5. Acute renal failure. Now on hemodialysis 6. Small bowel obstruction with septic shock RECS: 1. Continue AC mechanical ventilation for now not for weaning. Continue pulmonary toilet as tolerated 2. Continue ID recommendations 3. GI recommendations regarding removal of tube feed in abdominal cavity continue drainage 4. Acute renal failure continue hemodialysis per nephrology 5. Surgery recommendations with ongoing small bowel obstruction. Now tolerating tube feeding. 6. Septic shock secondary to resistant Acinetobacter noted. ID recommendations Prognosis guarded 40 min cc time We will attempt arterial line JULIETH PUENTE MD, [facility] Sep 13, 2018 11:05
[2018-09-13] MEDS: PANTOPRAZOLE IV 80 MG in SOD CHLORIDE 0.9% 100 ML IV SCH ×2 (11:39→21:48)
[2018-09-13] MEDS: HEPARIN 1000 UNITS/ML 10 ML INJ CATHETER SCH (12:36)
--- NOTE | 2018-09-13 13:46 | PN ---
Date/Time of Note Date/Time of Note DATE: 09/13/18 TIME: 13:41 Assessment/Plan VTE Prophylaxis Risk score (from Ns)>0 risk: 10 SCD applied (from Ns): Yes Pharmacological prophylaxis: other (scds) Lines/Catheters IV Catheter Type (from Nrsg): Trialysis Catheter Urinary Cath still in place: No Assessment/Plan Hospital Course Assessment/Plan Assessment: Coffee-ground emesis EGD 09/11/18 Upper GI bleeding likely from esophageal ulceration Currently stable Candidal esophagitis noted No active bleeding or old blood noted today. Anemia Sepsis Accidental displacement of GT (Removed) R/o abdominal wall cellulitis (not evident thus far) VDRF Encephalopathy Morbid obesity Contact isolation Plan: Continue Protonix gtt x24 hrs Restart NGT feeding with goal rate per dietary recommendations H/H Q6, Transfuse for hemoglobin less then 7.5- recheck H/H at 1400 Local Gt site care Replace GT once abdominal wall healed Patient seen in collaboration with Dr. Morrissey Subjective: No over night events, no melena in rectal tube NGT with no evidence of blood, plan to restart. Pt remains in ICU overall prognosis guarded. GENERAL: Morbidly Obese, s/p tracheostomy on MV, opens eyes, non-verbal HEENT: Supple. NG tube in place. CARDIAC EXAM: S1, S2. No murmurs. CHEST: Scattered crackles ABDOMEN: Soft, nontender. G-tube stoma to drainage bag with milky pinkish output. No guarding or rebound. drain to LQ EXTREMITIES: No cyanosis, clubbing, edema +2 Result Diagram: 09/13/18 0430 09/13/18 0430 Results 24hrs Laboratory Tests Test 09/12/18 14:56 09/12/18 18:48 09/12/18 19:37 09/12/18 20:51 White Blood Count 26.7 H Red Blood Count 3.79 L Hemoglobin 8.9 L 7.4 L 9.2 #L Hematocrit 30.9 L 26.3 L 32.9 #L Mean Corpuscular 81.5 L Volume Mean Corpuscular 23.5 L Hemoglobin Mean Corpuscular 28.8 L Hemoglobin Concent Red Cell 22.5 H Distribution Width Platelet Count 293 Mean Platelet Volume 10.6 H Immature 6.800 H Granulocytes % Neutrophils % Segmented 76 Neutrophils % (Manual) Band Neutrophils % 4 (Manual) Lymphocytes % Lymphocytes % 14 L (Manual) Monocytes % Monocytes % (Manual) 3 Eosinophils % Basophils % Myelocytes % 3 H (Manual) Nucleated Red Blood 2 H Cells % Immature 1.810 H Granulocytes # Neutrophils # Neutrophils # 20.6 H (Manual) Band Neutrophils # 1.0 H Lymphocytes (Manual) 3.7 H Lymphocytes # Monocytes # Monocytes # (Manual) 0.8 Eosinophils # Basophils # Myelocytes # 0.8 H Nucleated Red Blood Cells # Platelet Estimate NORMAL Giant Platelets 3 H Polychromasia 1+ Hypochromasia 2+ Poikilocytosis 1+ Anisocytosis 2+ Microcytosis 1+ Macrocytosis 1+ Ovalocytes 1+ Bedside Glucose 80 Test 09/12/18 23:45 09/13/18 04:14 09/13/18 04:30 09/13/18 08:11 Bedside Glucose 74 86 74 White Blood Count 22.0 H Red Blood Count 3.35 L Hemoglobin 7.9 L Hematocrit 28.1 L Mean Corpuscular 83.9 Volume Mean Corpuscular 23.6 L Hemoglobin Mean Corpuscular 28.1 L Hemoglobin Concent Red Cell 22.5 H Distribution Width Platelet Count 261 Mean Platelet Volume 10.9 H Immature 7.100 H Granulocytes % Neutrophils % 75.3 Lymphocytes % 11.4 L Monocytes % 5.5 Eosinophils % 0.1 Basophils % 0.6 Nucleated Red Blood 0.6 H Cells % Immature 1.550 H Granulocytes # Neutrophils # 16.6 H Lymphocytes # 2.5 Monocytes # 1.2 H Eosinophils # 0.0 Basophils # 0.1 Nucleated Red Blood 0.1 H Cells # Sodium Level 133 L Potassium Level 5.3 H Chloride Level 95 L Carbon Dioxide Level 21 Anion Gap 17 H Blood Urea Nitrogen 95 H Creatinine 6.94 H Est Glomerular 9 L Filtrat Rate mL/min Glucose Level 79 Lactic Acid Level 2.9 *H Calcium Level 8.3 L Phosphorus Level 9.3 H Magnesium Level 2.0 Total Bilirubin 0.4 Direct Bilirubin 0.40 H Indirect Bilirubin 0.0 Aspartate Amino 39 Transf (AST/SGOT) Alanine 46 Aminotransferase (AL T/SGPT) Alkaline Phosphatase 139 H Total Protein 5.5 L Albumin 2.2 L Globulin 3.30 H Albumin/Globulin 0.66 Ratio Test 09/13/18 12:06 Bedside Glucose 71 Exam/Review of Systems Exam Vitals Vital Signs Date Temp Pulse Resp B/P (MAP) Pulse Ox O2 O2 Flow FiO2 Time Delivery Rate 09/13/18 101 12:25 09/13/18 25 82/54 (63) 99 11:00 09/13/18 Mechanical 09:25 Ventilator 09/13/18 40 08:00 09/13/18 99.5 08:00 Intake and Output 09/12/18 09/12/18 09/13/18 1515:00 23:00 07:00 IntakeIntake Total 586.89 ml 1310.07 ml 489.81 ml OutputOutput Total 40 ml 75 ml 170 ml BalanceBalance 546.89 ml 1235.07 ml 319.81 ml Results Results 24hrs Laboratory Tests Test 09/12/18 14:56 09/12/18 18:48 09/12/18 19:37 09/12/18 20:51 White Blood Count 26.7 H Red Blood Count 3.79 L Hemoglobin 8.9 L 7.4 L 9.2 #L Hematocrit 30.9 L 26.3 L 32.9 #L Mean Corpuscular 81.5 L Volume Mean Corpuscular 23.5 L Hemoglobin Mean Corpuscular 28.8 L Hemoglobin Concent Red Cell 22.5 H Distribution Width Platelet Count 293 Mean Platelet Volume 10.6 H Immature 6.800 H Granulocytes % Neutrophils % Segmented 76 Neutrophils % (Manual) Band Neutrophils % 4 (Manual) Lymphocytes % Lymphocytes % 14 L (Manual) Monocytes % Monocytes % (Manual) 3 Eosinophils % Basophils % Myelocytes % 3 H (Manual) Nucleated Red Blood 2 H Cells % Immature 1.810 H Granulocytes # Neutrophils # Neutrophils # 20.6 H (Manual) Band Neutrophils # 1.0 H Lymphocytes (Manual) 3.7 H Lymphocytes # Monocytes # Monocytes # (Manual) 0.8 Eosinophils # Basophils # Myelocytes # 0.8 H Nucleated Red Blood Cells # Platelet Estimate NORMAL Giant Platelets 3 H Polychromasia 1+ Hypochromasia 2+ Poikilocytosis 1+ Anisocytosis 2+ Microcytosis 1+ Macrocytosis 1+ Ovalocytes 1+ Bedside Glucose 80 Test 09/12/18 23:45 09/13/18 04:14 09/13/18 04:30 09/13/18 08:11 Bedside Glucose 74 86 74 White Blood Count 22.0 H Red Blood Count 3.35 L Hemoglobin 7.9 L Hematocrit 28.1 L Mean Corpuscular 83.9 Volume Mean Corpuscular 23.6 L Hemoglobin Mean Corpuscular 28.1 L Hemoglobin Concent Red Cell 22.5 H Distribution Width Platelet Count 261 Mean Platelet Volume 10.9 H Immature 7.100 H Granulocytes % Neutrophils % 75.3 Lymphocytes % 11.4 L Monocytes % 5.5 Eosinophils % 0.1 Basophils % 0.6 Nucleated Red Blood 0.6 H Cells % Immature 1.550 H Granulocytes # Neutrophils # 16.6 H Lymphocytes # 2.5 Monocytes # 1.2 H Eosinophils # 0.0 Basophils # 0.1 Nucleated Red Blood 0.1 H Cells # Sodium Level 133 L Potassium Level 5.3 H Chloride Level 95 L Carbon Dioxide Level 21 Anion Gap 17 H Blood Urea Nitrogen 95 H Creatinine 6.94 H Est Glomerular 9 L Filtrat Rate mL/min Glucose Level 79 Lactic Acid Level 2.9 *H Calcium Level 8.3 L Phosphorus Level 9.3 H Magnesium Level 2.0 Total Bilirubin 0.4 Direct Bilirubin 0.40 H Indirect Bilirubin 0.0 Aspartate Amino 39 Transf (AST/SGOT) Alanine 46 Aminotransferase (AL T/SGPT) Alkaline Phosphatase 139 H Total Protein 5.5 L Albumin 2.2 L Globulin 3.30 H Albumin/Globulin 0.66 Ratio Test 09/13/18 12:06 Bedside Glucose 71 Medications Medication Current Medications IV Flush (NS 3 ml) 3 ml PER PROTOCOL IV ; Start 08/08/18 at 17:30 Ondansetron HCl (Zofran Inj) 4 mg Q6H PRN IV NAUSEA; Start 08/08/18 at 17:30 Naphazoline HCl (Clear Eyes / Naphcon) 2 drop QID BOTH EYES Last administered on 09/13/18at 09:10; Admin Dose 2 DROP; Start 08/16/18 at 18:14 Acetaminophen (Tylenol Liquid) 650 mg Q6H PRN NGT MILD PAIN(1-3)OR ELEVATED TEMP Last administered on 09/12/18at 16:12; Admin Dose 650 MG; Start 08/17/18 at 00:57 Lorazepam (Ativan) 1 mg Q6H PRN IV AGITATION Last administered on 09/08/18at 23:40; Admin Dose 1 MG; Start 08/28/18 at 02:30 Morphine Sulfate (morphine) 2 mg Q2H PRN IV SEVERE PAIN LEVEL 7-10 Last administered on 09/10/18 17:39; Admin Dose 2 MG; Start 08/28/18 at 09:00 Scopolamine (Transderm-Scop) 1 patch Q72H TRANSDERM Last administered on 09/12/18 12:11; Admin Dose 1 PATCH; Start 08/31/18 at 11:30 IV Flush (NS 10 ml) 10 ml PRN PRN IV IV PROTOCOL; Start 09/06/18 at 17:30 Albumin Human 100 ml @ 100 mls/hr DURING DIALYSIS PRN IV BLOOD PRESSURE SUPPORT Last administered on 09/07/18 18:04; Admin Dose 100 MLS/HR; Start 09/07/18 at 09:30 Albuterol (Ventolin Hfa) 4 puff Q6H RESP THERAPY INH Last administered on 09/13/18 13:24; Admin Dose 4 PUFF; Start 09/08/18 at 09:00 Ipratropium [place] (Atrovent Hfa) 4 puff Q6HWA RESP THERAPY INH Last a dministered on 09/13/18 13:24; Admin Dose 4 PUFF; Start 09/08/18 at 09:00 Heparin Sodium (Porcine) (Heparin (1000 Units/ml)) 3,100 unit PRN CATHETER Last administered on 09/13/18 12:36; Admin Dose 3,100 UNIT; Start 09/08/18 at 14:00 Polyethylene Glycol (Miralax) 17 gm DAILY PRN GTB CONSTIPATION; Start 09/10/18 at 09:30 Acetylcysteine (Mucomyst) 1 ml Q6H RESP THERAPY NEB Last administered on 09/13/18 13:24; Admin Dose 1 ML; Start 09/10/18 at 14:00 Phenylephrine HCl 80 mg/Dextrose 250 ml @ 18.75 mls/ hr TITRATE IV Last administered on 09/13/18 10:07; Admin Dose 28.13 MLS/HR; Start 09/11/18 at 12:00 Multivitamins (Multivitamin) 30 ml DAILY GTB Last administered on 09/13/18 09:08; Admin Dose 30 ML; Start 09/13/18 at 09:00 Folic Acid (Folic Acid) 1 mg DAILY GTB Last administered on 09/13/18 09:09; Admin Dose 1 MG; Start 09/13/18 at 09:00 Zinc Sulfate (Zinc Sulfate) 220 mg DAILY GTB Last administered on 09/13/18at 09:09; Admin Dose 220 MG; Start 09/13/18 at 09:00 Ascorbic Acid (Vitamin C) 250 mg DAILY GTB Last administered on 09/13/18at 09:09; Admin Dose 250 MG; Start 09/13/18 at 09:00 Fluconazole/ Sodium Chloride 50 ml @ 50 mls/hr Q24H IVPB Last administered on 09/12/18at 14:24; Admin Dose 50 MLS/HR; Start 09/12/18 at 14:00 Norepinephrine 32 mg/Dextrose 250 ml @ 0.47 mls/hr TITRATE IV Last administered on 09/12/18at 13:47; Admin Dose 0.94 MLS/HR; Start 09/12/18 at 14:30 Vancomycin HCl (Vanco Iv Per Pharmacy) VANCOMYCIN PER PHARMACY PER PROTOCOL XX ; Start 09/12/18 at 13:30 Piperacillin Sod/ Tazobactam Sod 50 ml @ 100 mls/hr Q8 IVPB Last administered on 09/13/18at 05:10; Admin Dose 100 MLS/HR; Start 09/12/18 at 14:00 Pantoprazole 80 mg/Sodium Chloride 100 ml @ 10 mls/hr Q10H IV Last administered on 09/13/18at 11:39; Admin Dose 10 MLS/HR; Start 09/12/18 at 15:30 Diagnostic Test (Pha) (Accu-Chek) 1 ea 02 XX ; Start 09/13/18 at 02:00 Miscellaneous Information 1 ea NOTE XX ; Start 09/12/18 at 21:30 Glucose (Glutose) 15 gm Q15M PRN PO DECREASED GLUCOSE; Start 09/12/18 at 21:30 Glucose (Glutose) 22.5 gm Q15M PRN PO DECREASED GLUCOSE; Start 09/12/18 at 21:30 Dextrose (D50w Syringe) 25 ml Q15M PRN IV DECREASED GLUCOSE; Start 09/12/18 at 21:30 Dextrose (D50w Syringe) 50 ml Q15M PRN IV DECREASED GLUCOSE; Start 09/12/18 at 21:30 Glucagon (Glucagen) 1 mg Q15M PRN IM DECREASED GLUCOSE; Start 09/12/18 at 21:30 Glucose (Glutose) 15 gm Q15M PRN BUCCAL DECREASED GLUCOSE; Start 09/12/18 at 21:30 Insulin Aspart (Novolog Insulin Pen) NOVOLOG *MILD* ALGORI... Q4H SC ; Start 09/13/18 at 00:00 Dextrose/Sodium Chloride 1,000 ml @ 30 mls/hr Q24H IV Last administered on 09/13/18at 00:40; Admin Dose 30 MLS/HR; Start 09/13/18 at 00:00 Miscellaneous Information (*Rx Drug Level Order Reminder*) RANDOM VANCO LEVEL ON... ONCE ONCE XX ; Start 09/14/18 at 05:00; Stop 09/14/18 at 05:01 NIRAJ BARNES Sep 13, 2018 13:46
[2018-09-13] MEDS: FLUCONAZOLE 100 MG/50 ML (PMX) 50 ML IVPB SCH (13:56)
[2018-09-13] MEDS ORDERED: TPN 1,000 ML IV SCH (14:14)
--- NOTE | 2018-09-13 14:53 | CONS ---
Assessment/Plan Assessment/Plan Hospital Course 32 yo morbidly obese male with multiple comorbidities who is admitted to the [facility] ICU for management of acute respiratory failure...now s/p trach He is noted to be protractedly encephalopathic, for which neurology is consulted. PNA+ MARTINE worsening Peritonitis Most clinically consistent with an acute and multifactorial toxic-metabolic encephalopathy. A focal INSTRUCTION LIBRARIAN process is less likely. Patient's body habitus is reportedly not amendable to neuroimaging P: [place] as necessary Hold seroquel while patient is obtunded; consider resuming low dose seroquel, prn...should he require in the future.. PT/OT/ST when able to participate Other medical management per primary Will follow clinically Consultation Date/Type/Reason Admit Date/Time Aug 08, 2018 at 17:18 Type of Consult Neurology Reason for Consultation ams Requesting Provider: TATI CARDOZA Date/Time of Note DATE: 09/13/18 TIME: 14:51 24 HR Interval Summary Free Text/Dictation Continues ICU care Exam Vital Signs Vitals Vital Signs Date Temp Pulse Resp B/P (MAP) Pulse Ox O2 O2 Flow FiO2 Time Delivery Rate 09/13/18 101 12:25 09/13/18 25 82/54 (63) 99 11:00 09/13/18 Mechanical 09:25 Ventilator 09/13/18 40 08:00 09/13/18 99.5 08:00 Intake and Output 09/12/18 09/12/18 09/13/18 1515:00 23:00 07:00 IntakeIntake Total 586.89 ml 1310.07 ml 489.81 ml OutputOutput Total 40 ml 75 ml 170 ml BalanceBalance 546.89 ml 1235.07 ml 319.81 ml Exam PE: Gen Appearance: No Apparent Distress HEENT: Trach Cardiovascular: Tachycardic Abdomen: Obese Extremities: Dry NE: The patient was obtunded and nonverbal. Cranial nerve examination was limited by mental status. Pupils were equal and reactive to light. There was no afferent pupillary defect. Funduscopic examination was limited. Face was grossly symmetric, w/ present corneal and cough reflexes. Tone was normal. Muscle bulk was normal. I did not see fasciculations. The patient withdrew to noxious stimulation x 4. Coordination and gait testing was limited by mental status. Arm and leg reflexes were within normal limits and symmetric. Grimm's sign was absent. Plantar responses were flexor. RAYMOND HERNANDEZ Sep 13, 2018 14:53
--- NOTE | 2018-09-13 15:31 | CONS ---
Assessment/Plan Assessment/Plan Hospital Course (Demo Recall) No acute events overnight patient looks comfortable still with low-grade fevers, on Levophed and David-Synephrine drips with a T-max of 99.8. WBC 22 H&H 7.9 and 28.1 platelets 261 neutrophils 75.3 BUN 95 creatinine 6.94. Lactic acid 2.9. Antimicrobials: Vancomycin, Zosyn, fluconazole Microbiology: Urine culture growing yeast, blood cultures since admission negative, drainage from G-tube site growing enterococcus species, susceptible to ampicillin and vancomycin. Abdominal fluid culture showed no growth Indwelling: Trach PEG right femoral [place] left upper extremity PICC line, abdominal pigtail catheter, NG tube Physical examination: This is a morbidly obese well-developed middle-aged man who lethargic, in no distress. Head atraumatic normocephalic, neck is obese, tracheostomy present. Chest rise symmetrical breath sounds diminished. Heart: S1-S2, tachycardic. Abdomen obese, distended, patient has a large amount of drainage from G-tube site, bowel sounds hypoactive. Extremities with edema Assessment: 1. Severe sepsis with shock and multisystem organ failure 2. Large intra-abdominal abscess secondary to #3, status post pigtail catheter insertion 09/11/18 3. G-tube displacement, status post discontinued 4. Acute hypoxemic respiratory failure status post tracheostomy secondary to multiple failure to wean 5. Acute kidney failure, started on hemodialysis 6. Status post pneumonia 7. Morbid obesity 8. Belinda UTI 9. [place]inda esophagitis Plan: Patient remains on pressors however with less requirements, fevers seem to be resolving, WBC trending down, continue present care, antibiotics, plan to start TPN and tube feeding via NG tube DEBORAH RN Consultation Date/Type/Reason Admit Date/Time Aug 08, 2018 at 17:18 Initial Consult Date 08/09/18 Type of Consult ID Requesting Provider: TATI CARDOZA Date/Time of Note DATE: 09/13/18 TIME: 15:28 Exam/Review of Systems Exam Vitals Vital Signs Date Temp Pulse Resp B/P (MAP) Pulse Ox O2 O2 Flow FiO2 Time Delivery Rate 09/13/18 104 23 97/34 (55) 97 Mechanical 12:30 Ventilator 09/13/18 40 08:00 09/13/18 99.5 08:00 Intake and Output 09/12/18 09/12/18 09/13/18 1515:00 23:00 07:00 IntakeIntake Total 586.89 ml 1310.07 ml 489.81 ml OutputOutput Total 40 ml 75 ml 170 ml BalanceBalance 546.89 ml 1235.07 ml 319.81 ml Results Result Diagram: 09/13/18 1410 09/13/18 0430 Results 24hrs Laboratory Tests Test 09/12/18 18:48 09/12/18 19:37 09/12/18 20:51 09/12/18 23:45 Hemoglobin 7.4 L 9.2 #L Hematocrit 26.3 L 32.9 #L Bedside Glucose 80 74 Test 09/13/18 04:14 09/13/18 04:30 09/13/18 08:11 09/13/18 12:06 Bedside Glucose 86 74 71 White Blood Count 22.0 H Red Blood Count 3.35 L Hemoglobin 7.9 L Hematocrit 28.1 L Mean Corpuscular 83.9 Volume Mean Corpuscular 23.6 L Hemoglobin Mean Corpuscular 28.1 L Hemoglobin Concent Red Cell 22.5 H Distribution Width Platelet Count 261 Mean Platelet Volume 10.9 H Immature 7.100 H Granulocytes % Neutrophils % 75.3 Lymphocytes % 11.4 L Monocytes % 5.5 Eosinophils % 0.1 Basophils % 0.6 Nucleated Red Blood 0.6 H Cells % Immature 1.550 H Granulocytes # Neutrophils # 16.6 H Lymphocytes # 2.5 Monocytes # 1.2 H Eosinophils # 0.0 Basophils # 0.1 Nucleated Red Blood 0.1 H Cells # Sodium Level 133 L Potassium Level 5.3 H Chloride Level 95 L Carbon Dioxide Level 21 Anion Gap 17 H Blood Urea Nitrogen 95 H Creatinine 6.94 H Est Glomerular 9 L Filtrat Rate mL/min Glucose Level 79 Lactic Acid Level 2.9 *H Calcium Level 8.3 L Phosphorus Level 9.3 H Magnesium Level 2.0 Total Bilirubin 0.4 Direct Bilirubin 0.40 H Indirect Bilirubin 0.0 Aspartate Amino 39 Transf (AST/SGOT) Alanine 46 Aminotransferase (AL T/SGPT) Alkaline Phosphatase 139 H Total Protein 5.5 L Albumin 2.2 L Globulin 3.30 H Albumin/Globulin 0.66 Ratio Test 09/13/18 14:10 Hemoglobin 8.0 L Hematocrit 28.4 L Medications Medication Current Medications IV Flush (NS 3 ml) 3 ml PER PROTOCOL IV ; Start 08/08/18 at 17:30 Ondansetron HCl (Zofran Inj) 4 mg Q6H PRN IV NAUSEA; Start 08/08/18 at 17:30 Naphazoline HCl (Clear Eyes / Naphcon) 2 drop QID BOTH EYES Last administered on 09/13/18 13:56; Admin Dose 2 DROP; Start 08/16/18 at 18:14 Acetaminophen (Tylenol Liquid) 650 mg Q6H PRN NGT MILD PAIN(1-3)OR ELEVATED TEMP Last administered on 09/12/18 16:12; Admin Dose 650 MG; Start 08/17/18 at 00:57 Lorazepam (Ativan) 1 mg Q6H PRN IV AGITATION Last administered on 09/08/18 23:40; Admin Dose 1 MG; Start 08/28/18 at 02:30 Morphine Sulfate (morphine) 2 mg Q2H PRN IV SEVERE PAIN LEVEL 7-10 Last administered on 09/10/18 17:39; Admin Dose 2 MG; Start 08/28/18 at 09:00 Scopolamine (Transderm-Scop) 1 patch Q72H TRANSDERM Last administered on 09/12/18 12:11; Admin Dose 1 PATCH; Start 08/31/18 at 11:30 IV Flush (NS 10 ml) 10 ml PRN PRN IV IV PROTOCOL; Start 09/06/18 at 17:30 Albumin Human 100 ml @ 100 mls/hr DURING DIALYSIS PRN IV BLOOD PRESSURE SUPPORT Last administered on 09/07/18 18:04; Admin Dose 100 MLS/HR; Start 09/07/18 at 09:30 Albuterol (Ventolin Hfa) 4 puff Q6H RESP THERAPY INH Last administered on 09/13/18 13:24; Admin Dose 4 PUFF; Start 09/08/18 at 09:00 Ipratropium [place] (Atrovent Hfa) 4 puff Q6HWA RESP THERAPY INH Last administered on 09/13/18 13:24; Admin Dose 4 PUFF; Start 09/08/18 at 09:00 Heparin Sodium (Porcine) (Heparin (1000 Units/ml)) 3,100 unit PRN CATHETER Last administered on 09/13/18 12:36; Admin Dose 3,100 UNIT; Start 09/08/18 at 14:00 Polyethylene Glycol (Miralax) 17 gm DAILY PRN GTB CONSTIPATION; Start 09/10/18 at 09:30 Acetylcysteine (Mucomyst) 1 ml Q6H RESP THERAPY NEB Last administered on 09/13/18 13:24; Admin Dose 1 ML; Start 09/10/18 at 14:00 Phenylephrine HCl 80 mg/Dextrose 250 ml @ 18.75 mls/ hr TITRATE IV Last administered on 09/13/18 10:07; Admin Dose 28.13 MLS/HR; Start 09/11/18 at 12:00 Multivitamins (Multivitamin) 30 ml DAILY GTB Last administered on 09/13/18 09:08; Admin Dose 30 ML; Start 09/13/18 at 09:00 Folic Acid (Folic Acid) 1 mg DAILY GTB Last administered on 09/13/18 09:09; Admin Dose 1 MG; Start 09/13/18 at 09:00 Zinc Sulfate (Zinc Sulfate) 220 mg DAILY GTB Last administered on 09/13/18 09:09; Admin Dose 220 MG; Start 09/13/18 at 09:00 Ascorbic Acid (Vitamin C) 250 mg DAILY GTB Last administered on 09/13/18 09:09; Admin Dose 250 MG; Start 09/13/18 at 09:00 Fluconazole/ Sodium Chloride 50 ml @ 50 mls/hr Q24H IVPB Last administered on 09/13/18 13:56; Admin Dose 50 MLS/HR; Start 09/12/18 at 14:00 Norepinephrine 32 mg/Dextrose 250 ml @ 0.47 mls/hr TITRATE IV Last administered on 09/12/18 13:47; Admin Dose 0.94 MLS/HR; Start 09/12/18 at 14:30 Vancomycin HCl (Vanco Iv Per Pharmacy) VANCOMYCIN PER PHARMACY PER PROTOCOL XX ; Start 09/12/18 at 13:30 Piperacillin Sod/ Tazobactam Sod 50 ml @ 100 mls/hr Q8 IVPB Last administered on 09/13/18 13:56; Admin Dose 100 MLS/HR; Start 09/12/18 at 14:00 Pantoprazole 80 mg/Sodium Chloride 100 ml @ 10 mls/hr Q10H IV Last administered on 2/27/19at 11:39; Admin Dose 10 MLS/HR; Start 09/12/18 at 15:30 Diagnostic Test (Pha) (Accu-Chek) 1 ea 02 XX ; Start 09/13/18 at 02:00 Miscellaneous Information 1 ea NOTE XX ; Start 09/12/18 at 21:30 Glucose (Glutose) 15 gm Q15M PRN PO DECREASED GLUCOSE; Start 09/12/18 at 21:30 Glucose (Glutose) 22.5 gm Q15M PRN PO DECREASED GLUCOSE; Start 09/12/18 at 21:30 Dextrose (D50w Syringe) 25 ml Q15M PRN IV DECREASED GLUCOSE; Start 09/12/18 at 21:30 Dextrose (D50w Syringe) 50 ml Q15M PRN IV DECREASED GLUCOSE; Start 09/12/18 at 21:30 Glucagon (Glucagen) 1 mg Q15M PRN IM DECREASED GLUCOSE; Start 09/12/18 at 21:30 Glucose (Glutose) 15 gm Q15M PRN BUCCAL DECREASED GLUCOSE; Start 09/12/18 at 21:30 Insulin Aspart (Novolog Insulin Pen) NOVOLOG *MILD* ALGORI... Q4H SC ; Start 09/13/18 at 00:00 Dextrose/Sodium Chloride 1,000 ml @ 30 mls/hr Q24H IV Last administered on 09/13/18at 00:40; Admin Dose 30 MLS/HR; Start 09/13/18 at 00:00 Miscellaneous Information (*Rx Drug Level Order Reminder*) RANDOM VANCO LEVEL ON... ONCE ONCE XX ; Start 09/14/18 at 05:00; Stop 09/14/18 at 05:01 Diagnostic Test (Pha) (Accu-Chek) 1 ea Q4 XX ; Start 09/13/18 at 17:00 Total Parenteral Nutrition 1,000 ml @ 0 mls/hr Q0M IV ; Start 09/13/18 at 14:14; Status JOCELYN RAMSEY NP Sep 13, 2018 15:31
--- NOTE | 2018-09-13 19:46 | PN ---
Date/Time of Note Date/Time of Note DATE: 09/13/18 TIME: 19:45 Assessment/Plan Lines/Catheters IV Catheter Type (from Nrsg): Trialysis Catheter Santiago in Place (from Nrsg): No Assessment/Plan Assessment/Plan Status post tracheostomy Trach site clean No bleeding We will continue vent support Trach care Pulmonary toilet Subjective 24 Hr Interval Summary Constitutional: improved Pain Control: mild Exam/Review of Systems Vital Signs Vitals Vital Signs Date Temp Pulse Resp B/P (MAP) Pulse Ox O2 O2 Flow FiO2 Time Delivery Rate 09/13/18 108 26 109/40 97 18:45 (63) 09/13/18 [place] 18:00 l Ventilato r 09/13/18 100.1 17:00 09/13/18 40 16:57 Intake and Output 09/12/18 09/12/18 09/13/18 1515:00 23:00 07:00 IntakeIntake Total 586.89 ml 1310.07 ml 489.81 ml OutputOutput Total 40 ml 75 ml 170 ml BalanceBalance 546.89 ml 1235.07 ml 319.81 ml Exam ENMT: nl external ears & nose, nl lips & teeth, nl nasal mucosa & septum, mucosa pink and moist Neck: supple, non-tender Respiratory: clear to auscultation, normal air movement Cardiovascular: regular rate and rhythm, nl pulses Gastrointestinal: soft, nl liver, spleen, non-tender Results Result Diagram: 09/13/18 1410 09/13/18 1537 MALETIMMY JAVIER MD Sep 13, 2018 19:46
[2018-09-14] VITALS (104 sets, daily range): BP systolic 59–131; BP diastolic 23–104; PULSE 108–127; RESP 17–59
[2018-09-14] MEDS: PHENYLephrine 80 MG in DEXTROSE 5% 242 ML IV SCH ×4 (00:10→21:49)
[2018-09-14] MEDS: ACCU-CHEK XX SCH ×7 (00:16→20:48)
[2018-09-14] MEDS: DEXTROSE 5%-0.45% NACL 1,000 ML IV SCH (00:23)
[2018-09-14] MEDS: ALBUTEROL HFA 8 GM INHALER INH SCH ×4 (01:28→19:54)
[2018-09-14] MEDS: ACETYLCYSTEINE 20% 4 ML VIAL NEB SCH ×4 (01:29→19:54)
[2018-09-14] MEDS: NORepinephrine 32 MG in DEXTROSE 5% 218 ML IV SCH (01:34)
[2018-09-14] MEDS: INSULIN ASPART [NOVOLOG] 3 ML PEN SC SCH ×6 (05:00→20:00)
[2018-09-14] MEDS: PIPER-TAZO 2.25 GM (PMX) 50 ML IVPB SCH ×3 (06:01→22:27)
[2018-09-14] MEDS: IPRATROPIUM (HFA) 12.9 GM INHALER INH SCH ×3 (07:39→19:54)
[2018-09-14] MEDS: ASCORBIC ACID 250 MG TAB GTB SCH (08:23)
[2018-09-14] MEDS: FOLIC ACID 1 MG TAB GTB SCH (08:23)
[2018-09-14] MEDS: ZINC SULFATE 220 MG CAP GTB SCH (08:23)
[2018-09-14] MEDS: PANTOPRAZOLE IV 80 MG in SOD CHLORIDE 0.9% 100 ML IV SCH (08:23)
[2018-09-14] MEDS: MULTIVITAMINS 30 ML CUP GTB SCH (08:24)
[2018-09-14] MEDS: NAPHAZOLINE 0.012% 15 ML OPH BOTH EYES SCH ×4 (08:24→20:47)
[2018-09-14] MEDS: BALSAM PERU/CASTOR OIL 60 GM TUBE TOP SCH ×2 (08:24→20:48)
--- NOTE | 2018-09-14 09:03 | CONS ---
Assessment/Plan Assessment/Plan Hospital Course (Demo Recall) `1. Acute renal failure. He continues to be anuric. He he had a hemodialysis today and 1000 cc of fluid was removed. He is now on norepinephrine for blood pressure support. I am going to check a chest x-ray now to get a better handle on his fluid status. I suspect he may need hemodialysis today. 2. Respiratory failure . He has a tracheostomy and is back on the ventilator. 3. Fever, he is being treated with broad-spectrum antibiotics. He continues to have fever . Blood cultures were done. He leaked fluid into the peritoneum when his gastric tube became dislodged . He had a fluid-filled collection in his abdomen which was drained yesterday by the radiologist. He does have a tube left in place to continue draining. 4. Morbid obesity 5. Encephalopathy , 6. Hypotension, he is on norepinephrine for blood pressure support. 7. Belinda esophagitis, he is on fluconazole Consultation Date/Type/Reason Admit Date/Time Aug 08, 2018 at 17:18 Initial Consult Date 09/06/18 Type of Consult Nephrology Requesting Provider: TATI CARDOZA Date/Time of Note DATE: 09/14/18 TIME: 08:53 24 HR Interval Summary Free Text/Dictation This patient is being seen in the intensive care unit. He is unresponsive, he has a tracheostomy tube and is on a ventilator. Subjective hx not possible: pt non-verbal Exam/Review of Systems Exam Vitals Vital Signs Date Temp Pulse Resp B/P (MAP) Pulse Ox O2 O2 Flow FiO2 Time Delivery Rate 09/14/18 114 08:00 09/14/18 31 109/42 98 06:45 (64) 09/14/18 Mechanical 06:00 Ventilator 09/14/18 40 04:50 09/14/18 99.3 04:00 Intake and Output 09/13/18 09/13/18 09/14/18 1515:00 23:00 07:00 IntakeIntake Total 764.47 ml 915.76 ml 913.45 ml OutputOutput Total 1500 ml 10 ml 40 ml BalanceBalance -735.53 ml 905.76 ml 873.45 ml Constitutional: non-verbal ENMT: intubated Respiratory: diminished breath sounds, wheezing Cardiovascular: regular rate and rhythm Gastrointestinal: soft, distended Musculoskeletal: nl extremities to inspection Results Result Diagram: 09/14/18 0408 09/14/18 0408 Results 24hrs Laboratory Tests Test 09/13/18 12:06 09/13/18 14:10 09/13/18 15:37 09/13/18 16:33 Bedside Glucose 71 67 L Hemoglobin 8.0 L Hematocrit 28.4 L Sodium Level 134 L Potassium Level 4.4 Chloride Level 97 Carbon Dioxide Level 23 Anion Gap 14 H Blood Urea Nitrogen 64 #H Creatinine 5.00 H Est Glomerular 13 L Filtrat Rate mL/min Glucose Level 62 #L Calcium Level 8.0 L Phosphorus Level 6.4 #H Magnesium Level 1.9 Total Bilirubin 0.0 L Direct Bilirubin 0.00 # Indirect Bilirubin 0.0 Aspartate Amino 41 Transf (AST/SGOT) Alanine 44 Aminotransferase (AL T/SGPT) Alkaline Phosphatase 154 H Total Protein 5.5 L Albumin 2.3 L Globulin 3.20 Albumin/Globulin 0.71 Ratio Prealbumin 6.3 L Triglycerides Level 317 H Test 09/13/18 17:09 09/13/18 17:35 09/13/18 20:28 09/14/18 00:15 Bedside Glucose 100 104 77 86 Test 09/14/18 04:08 09/14/18 04:44 09/14/18 06:00 09/14/18 08:28 White Blood Count 19.6 H Red Blood Count 3.34 L Hemoglobin 7.9 L Hematocrit 28.7 L Mean Corpuscular 85.9 Volume Mean Corpuscular 23.7 L Hemoglobin Mean Corpuscular 27.5 L Hemoglobin Concent Red Cell 23.1 H Distribution Width Platelet Count 266 Mean Platelet Volume 10.2 Immature 8.100 H Granulocytes % Neutrophils % 72.5 Lymphocytes % 12.6 L Monocytes % 6.1 Eosinophils % 0.1 Basophils % 0.6 Nucleated Red Blood 4.2 H Cells % Immature 1.600 H Granulocytes # Neutrophils # 14.2 H Lymphocytes # 2.5 Monocytes # 1.2 H Eosinophils # 0.0 Basophils # 0.1 Nucleated Red Blood 0.8 H Cells # Sodium Level 133 L Potassium Level 4.7 Chloride Level 97 Carbon Dioxide Level 20 L Anion Gap 16 H Blood Urea Nitrogen 68 H Creatinine 5.47 H Est Glomerular 12 L Filtrat Rate mL/min Glucose Level 98 Calcium Level 7.9 L Phosphorus Level 6.4 H Magnesium Level 1.9 Total Bilirubin 0.1 L Direct Bilirubin 0.10 Indirect Bilirubin 0.0 Aspartate Amino 44 Transf (AST/SGOT) Alanine 35 Aminotransferase (AL T/SGPT) Alkaline Phosphatase 176 H Total Protein 5.7 L Albumin 2.3 L Globulin 3.40 H Albumin/Globulin 0.67 Ratio Random Vancomycin 14.6 Level Bedside Glucose 103 102 108 Medications Medication Current Medications IV Flush (NS 3 ml) 3 ml PER PROTOCOL IV ; Start 08/08/18 at 17:30 Ondansetron HCl (Zofran Inj) 4 mg Q6H PRN IV NAUSEA; Start 08/08/18 at 17:30 Naphazoline HCl (Clear Eyes / Naphcon) 2 drop QID BOTH EYES Last administered on 09/14/18 08:24; Admin Dose 2 DROP; Start 08/16/18 at 18:14 Acetaminophen (Tylenol Liquid) 650 mg Q6H PRN NGT MILD PAIN(1-3)OR ELEVATED TEMP Last administered on 09/12/18 16:12; Admin Dose 650 MG; Start 08/17/18 at 00:57 Lorazepam (Ativan) 1 mg Q6H PRN IV AGITATION Last administered on 09/08/18 23:40; Admin Dose 1 MG; Start 08/28/18 at 02:30 Morphine Sulfate (morphine) 2 mg Q2H PRN IV SEVERE PAIN LEVEL 7-10 Last administered on 09/10/18 17:39; Admin Dose 2 MG; Start 08/28/18 at 09:00 Scopolamine (Transderm-Scop) 1 patch Q72H TRANSDERM Last administered on 09/12/18 12:11; Admin Dose 1 PATCH; Start 08/31/18 at 11:30 IV Flush (NS 10 ml) 10 ml PRN PRN IV IV PROTOCOL; Start 09/06/18 at 17:30 Albumin Human 100 ml @ 100 mls/hr DURING DIALYSIS PRN IV BLOOD PRESSURE SUPPORT Last administered on 09/07/18 18:04; Admin Dose 100 MLS/HR; Start 09/07/18 at 09:30 Albuterol (Ventolin Hfa) 4 puff Q6H RESP THERAPY INH Last administered on 09/14/18 07:39; Admin Dose 4 PUFF; Start 09/08/18 at 09:00 Ipratropium [place] (Atrovent Hfa) 4 puff Q6HWA RESP THERAPY INH Last administered on 09/14/18 07:39; Admin Dose 4 PUFF; Start 09/08/18 at 09:00 Heparin Sodium (Porcine) (Heparin (1000 Units/ml)) 3,100 unit PRN CATHETER Last administered on 09/13/18 12:36; Admin Dose 3,100 UNIT; Start 09/08/18 at 14:00 Polyethylene Glycol (Miralax) 17 gm DAILY PRN GTB CONSTIPATION; Start 09/10/18 at 09:30 Acetylcysteine (Mucomyst) 1 ml Q6H RESP THERAPY NEB Last administered on 09/14/18 07:39; Admin Dose 1 ML; Start 09/10/18 at 14:00 Phenylephrine HCl 80 mg/Dextrose 250 ml @ 18.75 mls/ hr TITRATE IV Last administered on 09/14/18 06:26; Admin Dose 37.5 MLS/HR; Start 09/11/18 at 12:00 Multivitamins (Multivitamin) 30 ml DAILY GTB Last administered on 09/14/18 08:24; Admin Dose 30 ML; Start 09/13/18 at 09:00 Folic Acid (Folic Acid) 1 mg DAILY GTB Last administered on 09/14/18 08:23; Admin Dose 1 MG; Start 09/13/18 at 09:00 Zinc Sulfate (Zinc Sulfate) 220 mg DAILY GTB Last administered on 09/14/18 08:23; Admin Dose 220 MG; Start 09/13/18 at 09:00 Ascorbic Acid (Vitamin C) 250 mg DAILY GTB Last administered on 09/14/18 08:23; Admin Dose 250 MG; Start 09/13/18 at 09:00 Fluconazole/ Sodium Chloride 50 ml @ 50 mls/hr Q24H IVPB Last administered on 09/13/18 13:56; Admin Dose 50 MLS/HR; Start 09/12/18 at 14:00 Norepinephrine 32 mg/Dextrose 250 ml @ 0.47 mls/hr TITRATE IV Last administer ed on 09/14/18 01:34; Admin Dose 4.69 MLS/HR; Start 09/12/18 at 14:30 Vancomycin HCl (Vanco Iv Per Pharmacy) VANCOMYCIN PER PHARMACY PER PROTOCOL XX ; Start 09/12/18 at 13:30 Piperacillin Sod/ Tazobactam Sod 50 ml @ 100 mls/hr Q8 IVPB Last administered on 09/14/18at 06:01; Admin Dose 100 MLS/HR; Start 09/12/18 at 14:00 Pantoprazole 80 mg/Sodium Chloride 100 ml @ 10 mls/hr Q10H IV Last administ ered on 09/14/18at 08:23; Admin Dose 10 MLS/HR; Start 09/12/18 at 15:30 Diagnostic Test (Pha) (Accu-Chek) 1 ea 02 XX ; Start 09/13/18 at 02:00 Miscellaneous Information 1 ea NOTE XX ; Start 09/12/18 at 21:30 Glucose (Glutose) 15 gm Q15M PRN PO DECREASED GLUCOSE; Start 09/12/18 at 21:30 Glucose (Glutose) 22.5 gm Q15M PRN PO DECREASED GLUCOSE; Start 09/12/18 at 21:30 Dextrose (D50w Syringe) 25 ml Q15M PRN IV DECREASED GLUCOSE Last administered on 09/13/18at 16:36; Admin Dose 25 ML; Start 09/12/18 at 21:30 Dextrose (D50w Syringe) 50 ml Q15M PRN IV DECREASED GLUCOSE; Start 09/12/18 at 21:30 Glucagon (Glucagen) 1 mg Q15M PRN IM DECREASED GLUCOSE; Start 09/12/18 at 21:30 Glucose (Glutose) 15 gm Q15M PRN BUCCAL DECREASED GLUCOSE; Start 09/12/18 at 21:30 Insulin Aspart (Novolog Insulin Pen) NOVOLOG *MILD* ALGORI... Q4H SC ; Start 09/13/18 at 00:00 Dextrose/Sodium Chloride 1,000 ml @ 50 mls/hr Q20H IV Last administered on 09/14/18at 00:23; Admin Dose 50 MLS/HR; Start 09/13/18 at 00:00; Stop 09/14/18 at 16:00 Diagnostic Test (Pha) (Accu-Chek) 1 ea Q4 XX Last administered on 09/14/18at 05: 00; Admin Dose 1 EA; Start 09/13/18 at 17:00 Miscellaneous Information (* Miscellaneous Pharmacy Order) DC IVF when TPN is started ONCE XX ; Start 09/13/18 at 21:00; Stop 09/14/18 at 16:00 Total Parenteral Nutrition 1,000 ml @ 50 mls/hr Q20H IV ; Start 09/14/18 at 16:00 LELAND HOPKINS MD Sep 14, 2018 09:02
--- NOTE | 2018-09-14 09:10 | PN ---
Date/Time of Note Date/Time of Note DATE: 09/14/18 TIME: 09:06 Assessment/Plan VTE Prophylaxis Risk score (from Ns)>0 risk: 10 SCD applied (from Ns): Yes Pharmacological prophylaxis: other Lines/Catheters IV Catheter Type (from Nrsg): Trialysis catheter Urinary Cath still in place: No Assessment/Plan Hospital Course S: Pt still on PPI drip and pressor support. Had dialysis yesterday. Seen by renal team this morning. Order for chest x-ray today to further assess his fluid status in the lungs. Cautiously started back on NG tube feeds yesterday evening at maximum rate of 20cc/hr which patient appears to be tolerating now. Awaiting for TPN to be started later today as well. O: VS - see below PE: Gen: Morbidly obese man lying in bed Neck: Obese, trach, no lymphadenopathy appreciated HEENT: Clear oropharynx, moist mucous membranes Card: Sinus tach, distant heart sounds Pulm: some distant lung sounds. Abd: Morbidly obese, soft, nontender Ext: Bilateral LE chronic venous stasis changes. Neuro: No focal deficits Assessment/Plan: 32yo Morbidly obese man who had presented with shortness of breath currently managed as follows: #. Hypoxic/hypercapnic respiratory failure-Secondary to ANDREW, exacerbated by pneumonia, underlying COPD -Intubated , status post trach 08/24 -still with secretions requiring frequent suctioning and copious secretions-steroids added 09/05/18-back on vent 09/07/18. -Continue mechanical ventilation per pulmonary recommendations via trach, Mucomyst, duo nebs as needed, antibiotics -Scopolamine for secretions, follow-up chest x-ray from today #. Sepsis -still on pressor support for the last 72-96 hours, still with occasional fevers. Respiratory cultures grew MDR Acinetobacter. Again patient had drainage of the abdominal fluid collection 3 days ago, potential source as well. White blood cell count today 19.6. - continue current antibiotics: tigecycline, ceftazidime, Flagyl, follow-up ID recommendations - Monitor drainage from LUPE drain in the intra-abdominal area, follow-up ID and surgery recommendations. # Encephalopathy, toxic metabolic, r/o hypoxic ischemic-patient remains confu sed intermittently, may have suffered a brain insult, unable to get MRI or CT 2 weight -appreciate neurology consult, will follow recs -earlier patient was on Seroquel, patient is still quite confused, this has been weaned off now -Monitor, follow-up neurology recommendations #. renal insufficiency now started on hemodialysis -schaefer was changed to r/o obstruction 09/06/18-1st session 09/07/18, -Continue HD per renal recs #. Dislodged G tube with iatrogenic fluid pocket of extravasated tube feed-again status post IR drainage of large pocket of tube feed -abdominal fluid collection noted-Again status post US-guided drainage 3 days ago, monitor drainage, also status post EGD 2 days ago with candidiasis found in the esophagus, along with esophageal ulceration but no active bleeding noted. - follow-up post procedure recommendations, drainage from the abdominal site, culture results, continue antibiotics -Continue to hold NG tube feeds for now at lower rate, and again we will start TPN later today -Fluconazole IV for esophageal candidiasis, follow up GI recommendations #. Chronic hypochromic anemia -stable, monitor #. Severe Obesity-high risk for skin breakdown-appears controlled calories while on tube feeds-has lost about 40 pounds so far since admission per nursing, but much of this could be diuresis. -Continue to monitor for now, counseled on weight loss #. Debility and lethargy -PT limited by patient's mental status #. Hyperbilirubinemia - predominantly direct, alkaline phosphatase is normal - liver USS showed diffuse fatty liver -Follow-up am labs with hepatitis screen #. Tachycardia -related to fevers-sepsis per cardio, appreciate input -Monitor, continue IV fluids, wean off pressor support as tolerated Dispo: Given Actinobacter multidrug-resistant respiratory infection, still on pressor support, needs for dialysis, trach, NG tube feeds, abdominal fluid collection status post IR guided drainage, overall poor prognosis. Critical care time spent in patient care today equals 45 minutes. Result Diagram: 09/14/188 09/14/188 Results 24hrs Laboratory Tests Test 09/13/18 12:06 09/13/18 14:10 09/13/18 15:37 09/13/18 16:33 Bedside Glucose 71 67 L Hemoglobin 8.0 L Hematocrit 28.4 L Sodium Level 134 L Potassium Level 4.4 Chloride Level 97 Carbon Dioxide Level 23 Anion Gap 14 H Blood Urea Nitrogen 64 #H Creatinine 5.00 H Est Glomerular 13 L Filtrat Rate mL/min Glucose Level 62 #L Calcium Level 8.0 L Phosphorus Level 6.4 #H Magnesium Level 1.9 Total Bilirubin 0.0 L Direct Bilirubin 0.00 # Indirect Bilirubin 0.0 Aspartate Amino 41 Transf (AST/SGOT) Alanine 44 Aminotransferase (AL T/SGPT) Alkaline Phosphatase 154 H Total Protein 5.5 L Albumin 2.3 L Globulin 3.20 Albumin/Globulin 0.71 Ratio Prealbumin 6.3 L Triglycerides Level 317 H Test 09/13/18 17:09 09/13/18 17:35 09/13/18 20:28 09/14/18 00:15 Bedside Glucose 100 104 77 86 Test 09/14/18 04:08 09/14/18 04:44 09/14/18 06:00 09/14/18 08:28 White Blood Count 19.6 H Red Blood Count 3.34 L Hemoglobin 7.9 L Hematocrit 28.7 L Mean Corpuscular 85.9 Volume Mean Corpuscular 23.7 L Hemoglobin Mean Corpuscular 27.5 L Hemoglobin Concent Red Cell 23.1 H Distribution Width Platelet Count 266 Mean Platelet Volume 10.2 Immature 8.100 H Granulocytes % Neutrophils % 72.5 Lymphocytes % 12.6 L Monocytes % 6.1 Eosinophils % 0.1 Basophils % 0.6 Nucleated Red Blood 4.2 H Cells % Immature 1.600 H Granulocytes # Neutrophils # 14.2 H Lymphocytes # 2.5 Monocytes # 1.2 H Eosinophils # 0.0 Basophils # 0.1 Nucleated Red Blood 0.8 H Cells # Sodium Level 133 L Potassium Level 4.7 Chloride Level 97 Carbon Dioxide Level 20 L Anion Gap 16 H Blood Urea Nitrogen 68 H Creatinine 5.47 H Est Glomerular 12 L Filtrat Rate mL/min Glucose Level 98 Calcium Level 7.9 L Phosphorus Level 6.4 H Magnesium Level 1.9 Total Bilirubin 0.1 L Direct Bilirubin 0.10 Indirect Bilirubin 0.0 Aspartate Amino 44 Transf (AST/SGOT) Alanine 35 Aminotransferase (AL T/SGPT) Alkaline Phosphatase 176 H Total Protein 5.7 L Albumin 2.3 L Globulin 3.40 H Albumin/Globulin 0.67 Ratio Random Vancomycin 14.6 Level Bedside Glucose 103 102 108 Exam/Review of Systems Exam Vitals Vital Signs Date Temp Pulse Resp B/P (MAP) Pulse Ox O2 O2 Flow FiO2 Time Delivery Rate 09/14/18 114 08:00 09/14/18 31 109/42 98 06:45 (64) 09/14/18 Mechanical 06:00 Ventilator 09/14/18 40 04:50 09/14/18 99.3 04:00 Intake and Output 09/13/18 09/13/18 09/14/18 1515:00 23:00 07:00 IntakeIntake Total 764.47 ml 915.76 ml 913.45 ml OutputOutput Total 1500 ml 10 ml 40 ml BalanceBalance -735.53 ml 905.76 ml 873.45 ml Results Results 24hrs Laboratory Tests Test 09/13/18 12:06 09/13/18 14:10 09/13/18 15:37 09/13/18 16:33 Bedside Glucose 71 67 L Hemoglobin 8.0 L Hematocrit 28.4 L Sodium Level 134 L Potassium Level 4.4 Chloride Level 97 Carbon Dioxide Level 23 Anion Gap 14 H Blood Urea Nitrogen 64 #H Creatinine 5.00 H Est Glomerular 13 L Filtrat Rate mL/min Glucose Level 62 #L Calcium Level 8.0 L Phosphorus Level 6.4 #H Magnesium Level 1.9 Total Bilirubin 0.0 L Direct Bilirubin 0.00 # Indirect Bilirubin 0.0 Aspartate Amino 41 Transf (AST/SGOT) Alanine 44 Aminotransferase (AL T/SGPT) Alkaline Phosphatase 154 H Total Protein 5.5 L Albumin 2.3 L Globulin 3.20 Albumin/Globulin 0.71 Ratio Prealbumin 6.3 L Triglycerides Level 317 H Test 09/13/18 17:09 09/13/18 17:35 09/13/18 20:28 09/14/18 00:15 Bedside Glucose 100 104 77 86 Test 09/14/18 04:08 09/14/18 04:44 09/14/18 06:00 09/14/18 08:28 White Blood Count 19.6 H Red Blood Count 3.34 L Hemoglobin 7.9 L Hematocrit 28.7 L Mean Corpuscular 85.9 Volume Mean Corpuscular 23.7 L Hemoglobin Mean Corpuscular 27.5 L Hemoglobin Concent Red Cell 23.1 H Distribution Width Platelet Count 266 Mean Platelet Volume 10.2 Immature 8.100 H Granulocytes % Neutrophils % 72.5 Lymphocytes % 12.6 L Monocytes % 6.1 Eosinophils % 0.1 Basophils % 0.6 Nucleated Red Blood 4.2 H Cells % Immature 1.600 H Granulocytes # Neutrophils # 14.2 H Lymphocytes # 2.5 Monocytes # 1.2 H Eosinophils # 0.0 Basophils # 0.1 Nucleated Red Blood 0.8 H Cells # Sodium Level 133 L Potassium Level 4.7 Chloride Level 97 Carbon Dioxide Level 20 L Anion Gap 16 H Blood Urea Nitrogen 68 H Creatinine 5.47 H Est Glomerular 12 L Filtrat Rate mL/min Glucose Level 98 Calcium Level 7.9 L Phosphorus Level 6.4 H Magnesium Level 1.9 Total Bilirubin 0.1 L Direct Bilirubin 0.10 Indirect Bilirubin 0.0 Aspartate Amino 44 Transf (AST/SGOT) Alanine 35 Aminotransferase (AL T/SGPT) Alkaline Phosphatase 176 H Total Protein 5.7 L Albumin 2.3 L Globulin 3.40 H Albumin/Globulin 0.67 Ratio Random Vancomycin 14.6 Level Bedside Glucose 103 102 108 Medications Medication Current Medications IV Flush (NS 3 ml) 3 ml PER PROTOCOL IV ; Start 08/08/18 at 17:30 Ondansetron HCl (Zofran Inj) 4 mg Q6H PRN IV NAUSEA; Start 08/08/18 at 17:30 Naphazoline HCl (Clear Eyes / Naphcon) 2 drop QID BOTH EYES Last administered on 09/14/18at 08:24; Admin Dose 2 DROP; Start 08/16/18 at 18:14 Acetaminophen (Tylenol Liquid) 650 mg Q6H PRN NGT MILD PAIN(1-3)OR ELEVATED TEMP Last administered on 09/12/18at 16:12; Admin Dose 650 MG; Start 08/17/18 at 00:57 Lorazepam (Ativan) 1 mg Q6H PRN IV AGITATION Last administered on 09/08/18at 23:40; Admin Dose 1 MG; Start 08/28/18 at 02:30 Morphine Sulfate (morphine) 2 mg Q2H PRN IV SEVERE PAIN LEVEL 7-10 Last administered on 09/10/18at 17:39; Admin Dose 2 MG; Start 08/28/18 at 09:00 Scopolamine (Transderm-Scop) 1 patch Q72H TRANSDERM Last administered on 09/12/18at 12:11; Admin Dose 1 PATCH; Start 08/31/18 at 11:30 IV Flush (NS 10 ml) 10 ml PRN PRN IV IV PROTOCOL; Start 09/06/18 at 17:30 Albumin Human 100 ml @ 100 mls/hr DURING DIALYSIS PRN IV BLOOD PRESSURE SUPPORT Last administered on 09/07/18 18:04; Admin Dose 100 MLS/HR; Start 09/07/18 at 09:30 Albuterol (Ventolin Hfa) 4 puff Q6H RESP THERAPY INH Last administered on 09/14/18 07:39; Admin Dose 4 PUFF; Start 09/08/18 at 09:00 Ipratropium [place] (Atrovent Hfa) 4 puff Q6HWA RESP THERAPY INH Last administered on 09/14/18 07:39; Admin Dose 4 PUFF; Start 09/08/18 at 09:00 Heparin Sodium (Porcine) (Heparin (1000 Units/ml)) 3,100 unit PRN CATHETER Last administered on 09/13/18 12:36; Admin Dose 3,100 UNIT; Start 09/08/18 at 14:00 Polyethylene Glycol (Miralax) 17 gm DAILY PRN GTB CONSTIPATION; Start 09/10/18 at 09:30 Acetylcysteine (Mucomyst) 1 ml Q6H RESP THERAPY NEB Last administered on 09/14/18 07:39; Admin Dose 1 ML; Start 09/10/18 at 14:00 Phenylephrine HCl 80 mg/Dextrose 250 ml @ 18.75 mls/ hr TITRATE IV Last administered on 09/14/18 06:26; Admin Dose 37.5 MLS/HR; Start 09/11/18 at 12:00 Multivitamins (Multivitamin) 30 ml DAILY GTB Last administered on 09/14/18 08:24; Admin Dose 30 ML; Start 09/13/18 at 09:00 Folic Acid (Folic Acid) 1 mg DAILY GTB Last administered on 09/14/18 08:23; Admin Dose 1 MG; Start 09/13/18 at 09:00 Zinc Sulfate (Zinc Sulfate) 220 mg DAILY GTB Last administered on 09/14/18 08:23; Admin Dose 220 MG; Start 09/13/18 at 09:00 Ascorbic Acid (Vitamin C) 250 mg DAILY GTB Last administered on 09/14/18 08:23; Admin Dose 250 MG; Start 09/13/18 at 09:00 Fluconazole/ Sodium Chloride 50 ml @ 50 mls/hr Q24H IVPB Last administered on 09/13/18at 13:56; Admin Dose 50 MLS/HR; Start 09/12/18 at 14:00 Norepinephrine 32 mg/Dextrose 250 ml @ 0.47 mls/hr TITRATE IV Last adminis tered on 09/14/18at 01:34; Admin Dose 4.69 MLS/HR; Start 09/12/18 at 14:30 Vancomycin HCl (Vanco Iv Per Pharmacy) VANCOMYCIN PER PHARMACY PER PROTOCOL XX ; Start 09/12/18 at 13:30 Piperacillin Sod/ Tazobactam Sod 50 ml @ 100 mls/hr Q8 IVPB Last administered on 09/14/18at 06:01; Admin Dose 100 MLS/HR; Start 09/12/18 at 14:00 Pantoprazole 80 mg/Sodium Chloride 100 ml @ 10 mls/hr Q10H IV Last admin istered on 09/14/18at 08:23; Admin Dose 10 MLS/HR; Start 09/12/18 at 15:30 Diagnostic Test (Pha) (Accu-Chek) 1 ea 02 XX ; Start 09/13/18 at 02:00 Miscellaneous Information 1 ea NOTE XX ; Start 09/12/18 at 21:30 Glucose (Glutose) 15 gm Q15M PRN PO DECREASED GLUCOSE; Start 09/12/18 at 21:30 Glucose (Glutose) 22.5 gm Q15M PRN PO DECREASED GLUCOSE; Start 09/12/18 at 21:30 Dextrose (D50w Syringe) 25 ml Q15M PRN IV DECREASED GLUCOSE Last administered on 09/13/18at 16:36; Admin Dose 25 ML; Start 09/12/18 at 21:30 Dextrose (D50w Syringe) 50 ml Q15M PRN IV DECREASED GLUCOSE; Start 09/12/18 at 21:30 Glucagon (Glucagen) 1 mg Q15M PRN IM DECREASED GLUCOSE; Start 09/12/18 at 21:30 Glucose (Glutose) 15 gm Q15M PRN BUCCAL DECREASED GLUCOSE; Start 09/12/18 at 21:30 Insulin Aspart (Novolog Insulin Pen) NOVOLOG *MILD* ALGORI... Q4H SC ; Start 09/13/18 at 00:00 Dextrose/Sodium Chloride 1,000 ml @ 50 mls/hr Q20H IV Last administered on 09/14/18at 00:23; Admin Dose 50 MLS/HR; Start 09/13/18 at 00:00; Stop 09/14/18 at 16:00 Diagnostic Test (Pha) (Accu-Chek) 1 ea Q4 XX Last administered on 09/14/18at 05:00; Admin Dose 1 EA; Start 09/13/18 at 17:00 Miscellaneous Information (* Miscellaneous Pharmacy Order) DC IVF when TPN is started ONCE XX ; Start 09/13/18 at 21:00; Stop 09/14/18 at 16:00 Total Parenteral Nutrition 1,000 ml @ 50 mls/hr Q20H IV ; Start 09/14/18 at 16:00 Vancomycin HCl 1.25 gm/Sodium Chloride 250 ml @ 83.333 mls/ hr 1400 IVPB ; Start 09/14/18 at 14:00; Stop 09/14/18 at 23:59 RC GO Sep 14, 2018 09:10
--- NOTE | 2018-09-14 10:31 | CONS ---
Consult Date/Type/Reason Admit Date/Time Aug 08, 2018 at 17:18 Initial Consult Date 08/09/18 Type of Consult Pulmonary Requesting Provider: TATI CARDOZA Date/Time of Note DATE: 09/14/18 TIME: 10:30 Subjective Patient's condition is unchanged. Continues to presses on mechanical ventilation, febrile and tachypneic. Objective Vital Signs Date Temp Pulse Resp B/P (MAP) Pulse Ox O2 O2 Flow FiO2 Time Delivery Rate 09/14/18 117 28 97 40 09:20 09/14/18 109/42 06:45 (64) 09/14/18 Mechanical 06:00 Ventilator 09/14/18 99.3 04:00 Intake and Output 09/13/18 09/13/18 09/14/18 1515:00 23:00 07:00 IntakeIntake Total 764.47 ml 915.76 ml 913.45 ml OutputOutput Total 1500 ml 10 ml 40 ml BalanceBalance -735.53 ml 905.76 ml 873.45 ml Exam GENERAL: Obese young gentleman tracheostomy on mechanical ventilation VITAL SIGNS: per chart NECK: Supple. No JVD or lymphadenopathy. CARDIAC EXAM: S1, S2. No added sounds or murmurs. CHEST: Diminished air entry bilaterally. ABDOMEN: Soft, nontender. No guarding or rebound. Decreased bowel sounds EXTREMITIES: No cyanosis, clubbing, edema +2 NEUROLOGIC: Generalized weakness. No focal deficits. Vent Setting Ventilator Support Mode: AC, VC plus Fraction of Inspired Oxygen pe: 40 Positive End Expiratory Pressu: 5.0 Results/Medications Result Diagram: 09/14/18 0408 09/14/18 0408 Results 24 hrs Laboratory Tests Test 09/13/18 12:06 09/13/18 14:10 09/13/18 15:37 09/13/18 16:33 Bedside Glucose 71 67 L Hemoglobin 8.0 L Hematocrit 28.4 L Sodium Level 134 L Potassium Level 4.4 Chloride Level 97 Carbon Dioxide Level 23 Anion Gap 14 H Blood Urea Nitrogen 64 #H Creatinine 5.00 H Est Glomerular 13 L Filtrat Rate mL/min Glucose Level 62 #L Calcium Level 8.0 L Phosphorus Level 6.4 #H Magnesium Level 1.9 Total Bilirubin 0.0 L Direct Bilirubin 0.00 # Indirect Bilirubin 0.0 Aspartate Amino 41 Transf (AST/SGOT) Alanine 44 Aminotransferase (AL T/SGPT) Alkaline Phosphatase 154 H Total Protein 5.5 L Albumin 2.3 L Globulin 3.20 Albumin/Globulin 0.71 Ratio Prealbumin 6.3 L Triglycerides Level 317 H Test 09/13/18 17:09 09/13/18 17:35 09/13/18 20:28 09/14/18 00:15 Bedside Glucose 100 104 77 86 Test 09/14/18 04:08 09/14/18 04:44 09/14/18 06:00 09/14/18 08:28 White Blood Count 19.6 H Red Blood Count 3.34 L Hemoglobin 7.9 L Hematocrit 28.7 L Mean Corpuscular 85.9 Volume Mean Corpuscular 23.7 L Hemoglobin Mean Corpuscular 27.5 L Hemoglobin Concent Red Cell 23.1 H Distribution Width Platelet Count 266 Mean Platelet Volume 10.2 Immature 8.100 H Granulocytes % Neutrophils % 72.5 Lymphocytes % 12.6 L Monocytes % 6.1 Eosinophils % 0.1 Basophils % 0.6 Nucleated Red Blood 4.2 H Cells % Immature 1.600 H Granulocytes # Neutrophils # 14.2 H Lymphocytes # 2.5 Monocytes # 1.2 H Eosinophils # 0.0 Basophils # 0.1 Nucleated Red Blood 0.8 H Cells # Sodium Level 133 L Potassium Level 4.7 Chloride Level 97 Carbon Dioxide Level 20 L Anion Gap 16 H Blood Urea Nitrogen 68 H Creatinine 5.47 H Est Glomerular 12 L Filtrat Rate mL/min Glucose Level 98 Calcium Level 7.9 L Phosphorus Level 6.4 H Magnesium Level 1.9 Total Bilirubin 0.1 L Direct Bilirubin 0.10 Indirect Bilirubin 0.0 Aspartate Amino 44 Transf (AST/SGOT) Alanine 35 Aminotransferase (AL T/SGPT) Alkaline Phosphatase 176 H Total Protein 5.7 L Albumin 2.3 L Globulin 3.40 H Albumin/Globulin 0.67 Ratio Random Vancomycin 14.6 Level Bedside Glucose 103 102 108 Medications Current Medications IV Flush (NS 3 ml) 3 ml PER PROTOCOL IV ; Start 08/08/18 at 17:30 Ondansetron HCl (Zofran Inj) 4 mg Q6H PRN IV NAUSEA; Start 08/08/18 at 17:30 Naphazoline HCl (Clear Eyes / Naphcon) 2 drop QID BOTH EYES Last administered on 09/14/18at 08:24; Admin Dose 2 DROP; Start 08/16/18 at 18:14 Acetaminophen (Tylenol Liquid) 650 mg Q6H PRN NGT MILD PAIN(1-3)OR ELEVATED T EMP Last administered on 09/12/18 16:12; Admin Dose 650 MG; Start 08/17/18 at 00:57 Lorazepam (Ativan) 1 mg Q6H PRN IV AGITATION Last administered on 09/08/18 23:40; Admin Dose 1 MG; Start 08/28/18 at 02:30 Morphine Sulfate (morphine) 2 mg Q2H PRN IV SEVERE PAIN LEVEL 7-10 Last administered on 09/10/18 17:39; Admin Dose 2 MG; Start 08/28/18 at 09:00 Scopolamine (Transderm-Scop) 1 patch Q72H TRANSDERM Last administered on 09/12/18 12:11; Admin Dose 1 PATCH; Start 08/31/18 at 11:30 IV Flush (NS 10 ml) 10 ml PRN PRN IV IV PROTOCOL; Start 09/06/18 at 17:30 Albumin Human 100 ml @ 100 mls/hr DURING DIALYSIS PRN IV BLOOD PRESSURE SUPPORT Last administered on 09/07/18 18:04; Admin Dose 100 MLS/HR; Start 09/07/18 at 09:30 Albuterol (Ventolin Hfa) 4 puff Q6H RESP THERAPY INH Last administered on 09/14/18 07:39; Admin Dose 4 PUFF; Start 09/08/18 at 09:00 Ipratropium [place] (Atrovent Hfa) 4 puff Q6HWA RESP THERAPY INH Last administered on 09/14/18 07:39; Admin Dose 4 PUFF; Start 09/08/18 at 09:00 Heparin Sodium (Porcine) (Heparin (1000 Units/ml)) 3,100 unit PRN CATHETER Last administered on 09/13/18 12:36; Admin Dose 3,100 UNIT; Start 09/08/18 at 14:00 Polyethylene Glycol (Miralax) 17 gm DAILY PRN GTB CONSTIPATION; Start 09/10/18 at 09:30 Acetylcysteine (Mucomyst) 1 ml Q6H RESP THERAPY NEB Last administered on 09/14/18 07:39; Admin Dose 1 ML; Start 09/10/18 at 14:00 Phenylephrine HCl 80 mg/Dextrose 250 ml @ 18.75 mls/ hr TITRATE IV Last administered on 09/14/18 06:26; Admin Dose 37.5 MLS/HR; Start 09/11/18 at 12:00 Multivitamins (Multivitamin) 30 ml DAILY GTB Last administered on 09/14/18 08:24; Admin Dose 30 ML; Start 09/13/18 at 09:00; Stop 09/14/18 at 15:59 Folic Acid (Folic Acid) 1 mg DAILY GTB Last administered on 09/14/18 08:23; Admin Dose 1 MG; Start 09/13/18 at 09:00 Zinc Sulfate (Zinc Sulfate) 220 mg DAILY GTB Last administered on 09/14/18 08:23; Admin Dose 220 MG; Start 09/13/18 at 09:00 Ascorbic Acid (Vitamin C) 250 mg DAILY GTB Last administered on 09/14/18 08:23; Admin Dose 250 MG; Start 09/13/18 at 09:00 Fluconazole/ Sodium Chloride 50 ml @ 50 mls/hr Q24H IVPB Last administered on 09/13/18 13:56; Admin Dose 50 MLS/HR; Start 09/12/18 at 14:00 Norepinephrine 32 mg/Dextrose 250 ml @ 0.47 mls/hr TITRATE IV Last administered on 09/14/18 01:34; Admin Dose 4.69 MLS/HR; Start 09/12/18 at 14:30 Vancomycin HCl (Vanco Iv Per Pharmacy) VANCOMYCIN PER PHARMACY PER PROTOCOL XX ; Start 09/12/18 at 13:30 Piperacillin Sod/ Tazobactam Sod 50 ml @ 100 mls/hr Q8 IVPB Last administered on 09/14/18 06:01; Admin Dose 100 MLS/HR; Start 09/12/18 at 14:00 Pantoprazole 80 mg/Sodium Chloride 100 ml @ 10 mls/hr Q10H IV Last administere d on 09/14/18 08:23; Admin Dose 10 MLS/HR; Start 09/12/18 at 15:30 Diagnostic Test (Pha) (Accu-Chek) 1 ea 02 XX ; Start 09/13/18 at 02:00 Miscellaneous Information 1 ea NOTE XX ; Start 09/12/18 at 21:30 Glucose (Glutose) 15 gm Q15M PRN PO DECREASED GLUCOSE; Start 09/12/18 at 21:30 Glucose (Glutose) 22.5 gm Q15M PRN PO DECREASED GLUCOSE; Start 09/12/18 at 21:30 Dextrose (D50w Syringe) 25 ml Q15M PRN IV DECREASED GLUCOSE Last administered on 09/13/18at 16:36; Admin Dose 25 ML; Start 09/12/18 at 21:30 Dextrose (D50w Syringe) 50 ml Q15M PRN IV DECREASED GLUCOSE; Start 09/12/18 at 21:30 Glucagon (Glucagen) 1 mg Q15M PRN IM DECREASED GLUCOSE; Start 09/12/18 at 21:30 Glucose (Glutose) 15 gm Q15M PRN BUCCAL DECREASED GLUCOSE; Start 09/12/18 at 21:30 Insulin Aspart (Novolog Insulin Pen) NOVOLOG *MILD* ALGORI... Q4H SC ; Start 09/13/18 at 00:00 Dextrose/Sodium Chloride 1,000 ml @ 50 mls/hr Q20H IV Last administered on 09/14/18at 00:23; Admin Dose 50 MLS/HR; Start 09/13/18 at 00:00; Stop 09/14/18 at 16:00 Diagnostic Test (Pha) (Accu-Chek) 1 ea Q4 XX Last administered on 09/14/18at 05:00; Admin Dose 1 EA; Start 09/13/18 at 17:00 Miscellaneous Information (* Miscellaneous Pharmacy Order) DC IVF when TPN is started ONCE XX ; Start 09/13/18 at 21:00; Stop 09/14/18 at 16:00 Total Parenteral Nutrition 1,000 ml @ 50 mls/hr Q20H IV ; Start 09/14/18 at 16:00 Vancomycin HCl 1.25 gm/Sodium Chloride 250 ml @ 83.333 mls/ hr 1400 IVPB ; Start 09/14/18 at 14:00; Stop 09/14/18 at 23:59 Assessment/Plan Hospital Course (Demo Recall) IMP: 1. Acute on chronic hypoxemic and hypercapnic respiratory failure, failed multiple weaning trials status post tracheostomy. Significant secretions, 2. G-tube was misplaced with tube feeding and abdominal cavity. 3. History of obesity hypoventilation syndrome and probable obstructive sleep apnea 4. Leukocytosis With ongoing fevers and persistent diarrhea. 5. Acute renal failure. Now on hemodialysis 6. Small bowel obstruction with septic shock RECS: 1. Continue AC mechanical ventilation for now not for weaning. Continue pulmonary toilet as tolerated 2. Continue ID recommendations 3. GI recommendations regarding removal of tube feed in abdominal cavity continue drainage 4. Acute renal failure continue hemodialysis per nephrology. Patient would benefit from CRRT. 5. Surgery recommendations with ongoing small bowel obstruction. Now tolerating tube feeding. 6. Septic shock secondary to resistant Acinetobacter noted. ID recommendations Prognosis guarded 40 min cc time I requested arterial line from family who declined procedure. JULIETH PUENTE MD, [facility] Sep 14, 2018 10:31
--- NOTE | 2018-09-14 11:40 | PN ---
Date/Time of Note Date/Time of Note DATE: 09/14/18 TIME: 11:40 Assessment/Plan Lines/Catheters IV Catheter Type (from Nrsg): Trialysis catheter Santiago in Place (from Nrsg): No Assessment/Plan Assessment/Plan Status post tracheostomy Trach site clean No bleeding We will continue vent support Trach care Pulmonary toilet Subjective 24 Hr Interval Summary Constitutional: improved Pain Control: mild Exam/Review of Systems Vital Signs Vitals Vital Signs Date Temp Pulse Resp B/P (MAP) Pulse Ox O2 O2 Flow FiO2 Time Delivery Rate 09/14/18 116 26 96 40 11:10 09/14/18 109/42 06:45 (64) 09/14/18 Mechanical 06:00 Ventilator 09/14/18 99.3 04:00 Intake and Output 09/13/18 09/13/18 09/14/18 1515:00 23:00 07:00 IntakeIntake Total 764.47 ml 915.76 ml 913.45 ml OutputOutput Total 1500 ml 10 ml 40 ml BalanceBalance -735.53 ml 905.76 ml 873.45 ml Exam ENMT: nl external ears & nose, nl lips & teeth, nl nasal mucosa & septum, mucosa pink and moist Neck: supple, non-tender Respiratory: clear to auscultation, normal air movement Cardiovascular: regular rate and rhythm, nl pulses Gastrointestinal: soft, nl liver, spleen, non-tender Musculoskeletal: nl extremities to inspection, nl gait and stance Results Result Diagram: 09/14/188 09/14/18407 TIMMY DALAL MD Sep 14, 2018 11:40
[2018-09-14] MEDS: FLUCONAZOLE 100 MG/50 ML (PMX) 50 ML IVPB SCH (13:36)
--- NOTE | 2018-09-14 13:59 | CONS ---
Assessment/Plan Assessment/Plan Hospital Course 32 yo morbidly obese male with multiple comorbidities who is admitted to the [facility] ICU for management of acute respiratory failure...now s/p trach He is noted to be protractedly encephalopathic, for which neurology is consulted. PNA+ MARTINE worsening Peritonitis Most clinically consistent with an acute and multifactorial toxic-metabolic encephalopathy. Patient's body habitus is reportedly not amendable to neuroimaging; thus, a superimposed focal LINE ANALYST process is not entirely excluded... P: [place] as necessary Hold seroquel while patient is obtunded; consider resuming low dose seroquel, prn...should he require in the future.. PT/OT/ST when able to participate Other medical management per primary Will follow clinically Consultation Date/Type/Reason Admit Date/Time Aug 08, 2018 at 17:18 Type of Consult Neurology Reason for Consultation encephalopathy Requesting Provider: TATI CARDOZA Date/Time of Note DATE: 09/14/18 TIME: 13:59 24 HR Interval Summary Free Text/Dictation Continues critical care. Remains on pressors, protonix gtt. Exam Vital Signs Vitals Vital Signs Date Temp Pulse Resp B/P (MAP) Pulse Ox O2 O2 Flow FiO2 Time Delivery Rate 09/14/18 122 27 100 40 13:12 09/14/18 112/40 11:30 (64) 09/14/18 99.4 07:30 09/14/18 Mechanical 06:00 Ventilator Intake and Output 09/13/18 09/13/18 09/14/18 1515:00 23:00 07:00 IntakeIntake Total 764.47 ml 915.76 ml 1014.70 ml OutputOutput Total 1500 ml 10 ml 40 ml BalanceBalance -735.53 ml 905.76 ml 974.70 ml Exam PE: Gen Appearance: No Apparent Distress HEENT: Trach Cardiovascular: Tachycardic Abdomen: Obese Extremities: Dry NE: The patient was obtunded and nonverbal. Cranial nerve examination was limited by mental status. Pupils were equal and reactive to light. There was no afferent pupillary defect. Funduscopic examination was limited. Face was grossly symmetric, w/ present corneal and cough reflexes. Tone was normal. Muscle bulk was normal. I did not see fasciculations. The patient withdrew to noxious stimulation x 4. Coordination and gait testing was limited by mental status. Arm and leg reflexes were within normal limits and symmetric. Grimm's sign was absent. Plantar responses were flexor. ARSENIO MAXWELL NP Sep 14, 2018 13:59 RAYMOND HERNANDEZ Sep 14, 2018 16:33
[2018-09-14] MEDS ORDERED: VANCOMYCIN HCL 1.25 GM in SOD CHLORIDE 0.9% 250 ML IVPB SCH (14:00)
--- NOTE | 2018-09-14 14:12 | PN ---
Date/Time of Note Date/Time of Note DATE: 09/14/18 TIME: 14:08 Assessment/Plan VTE Prophylaxis Risk score (from Nsg)>0 risk: 12 Pharmacological prophylaxis: other (scds) Lines/Catheters IV Catheter Type (from Nrsg): Trialysis Urinary Cath still in place: No Assessment/Plan Hospital Course Assessment/Plan Assessment: Coffee-ground emesis EGD 09/11/18 Upper GI bleeding likely from esophageal ulceration Currently stable Candidal esophagitis noted No active bleeding or old blood noted today. Anemia Sepsis Accidental displacement of GT (Removed) Leukocytosis- trending down R/o abdominal wall cellulitis (not evident thus far) VDRF Encephalopathy Morbid obesity Contact isolation Plan: Change PPI to BID Continue NGT feeding with goal rate per dietary recommendations Monitor for overt signs of GI bleed Transfuse for hemoglobin less then 7.5 Local GT site care Replace GT once abdominal wall healed Patient seen in collaboration with Dr. Morrissey/Callum Subjective: No over night events, no melena in rectal tube NGT with no evidence of blood, plan to restart. Pt remains in ICU overall prognosis guarded. GENERAL: Morbidly Obese, s/p tracheostomy on MV, opens eyes, non-verbal HEENT: Supple. NG tube in place. CARDIAC EXAM: S1, S2. No murmurs. CHEST: Scattered crackles ABDOMEN: Soft, nontender. G-tube stoma to drainage bag with milky pinkish output. No guarding or rebound. drain to LQ EXTREMITIES: No cyanosis, clubbing, edema +2 Result Diagram: 09/14/188 09/14/18 0408 Results 24hrs Laboratory Tests Test 09/13/18 14:10 09/13/18 15:37 09/13/18 16:33 09/13/18 17:09 Hemoglobin 8.0 L Hematocrit 28.4 L Sodium Level 134 L Potassium Level 4.4 Chloride Level 97 Carbon Dioxide Level 23 Anion Gap 14 H Blood Urea Nitrogen 64 #H Creatinine 5.00 H Est Glomerular 13 L Filtrat Rate mL/min Glucose Level 62 #L Calcium Level 8.0 L Phosphorus Level 6.4 #H Magnesium Level 1.9 Total Bilirubin 0.0 L Direct Bilirubin 0.00 # Indirect Bilirubin 0.0 Aspartate Amino 41 Transf (AST/SGOT) Alanine 44 Aminotransferase (AL T/SGPT) Alkaline Phosphatase 154 H Total Protein 5.5 L Albumin 2.3 L Globulin 3.20 Albumin/Globulin 0.71 Ratio Prealbumin 6.3 L Triglycerides Level 317 H Bedside Glucose 67 L 100 Test 09/13/18 17:35 09/13/18 20:28 09/14/18 00:15 09/14/18 04:08 Bedside Glucose 104 77 86 White Blood Count 19.6 H Red Blood Count 3.34 L Hemoglobin 7.9 L Hematocrit 28.7 L Mean Corpuscular 85.9 Volume Mean Corpuscular 23.7 L Hemoglobin Mean Corpuscular 27.5 L Hemoglobin Concent Red Cell 23.1 H Distribution Width Platelet Count 266 Mean Platelet Volume 10.2 Immature 8.100 H Granulocytes % Neutrophils % 72.5 Lymphocytes % 12.6 L Monocytes % 6.1 Eosinophils % 0.1 Basophils % 0.6 Nucleated Red Blood 4.2 H Cells % Immature 1.600 H Granulocytes # Neutrophils # 14.2 H Lymphocytes # 2.5 Monocytes # 1.2 H Eosinophils # 0.0 Basophils # 0.1 Nucleated Red Blood 0.8 H Cells # Sodium Level 133 L Potassium Level 4.7 Chloride Level 97 Carbon Dioxide Level 20 L Anion Gap 16 H Blood Urea Nitrogen 68 H Creatinine 5.47 H Est Glomerular 12 L Filtrat Rate mL/min Glucose Level 98 Calcium Level 7.9 L Phosphorus Level 6.4 H Magnesium Level 1.9 Total Bilirubin 0.1 L Direct Bilirubin 0.10 Indirect Bilirubin 0.0 Aspartate Amino 44 Transf (AST/SGOT) Alanine 35 Aminotransferase (AL T/SGPT) Alkaline Phosphatase 176 H Total Protein 5.7 L Albumin 2.3 L Globulin 3.40 H Albumin/Globulin 0.67 Ratio Random Vancomycin 14.6 Level Test 09/14/18 04:44 09/14/18 06:00 09/14/18 08:28 09/14/18 12:45 Bedside Glucose 103 102 108 105 Exam/Review of Systems Exam Vitals Vital Signs Date Temp Pulse Resp B/P (MAP) Pulse Ox O2 O2 Flow FiO2 Time Delivery Rate 09/14/18 122 27 100 40 13:12 09/14/18 112/40 11:30 (64) 09/14/18 99.4 07:30 09/14/18 Mechanical 06:00 Ventilator Intake and Output 09/13/18 09/13/18 09/14/18 1515:00 23:00 07:00 IntakeIntake Total 764.47 ml 915.76 ml 1014.70 ml OutputOutput Total 1500 ml 10 ml 40 ml BalanceBalance -735.53 ml 905.76 ml 974.70 ml Results Results 24hrs Laboratory Tests Test 09/13/18 14:10 09/13/18 15:37 09/13/18 16:33 09/13/18 17:09 Hemoglobin 8.0 L Hematocrit 28.4 L Sodium Level 134 L Potassium Level 4.4 Chloride Level 97 Carbon Dioxide Level 23 Anion Gap 14 H Blood Urea Nitrogen 64 #H Creatinine 5.00 H Est Glomerular 13 L Filtrat Rate mL/min Glucose Level 62 #L Calcium Level 8.0 L Phosphorus Level 6.4 #H Magnesium Level 1.9 Total Bilirubin 0.0 L Direct Bilirubin 0.00 # Indirect Bilirubin 0.0 Aspartate Amino 41 Transf (AST/SGOT) Alanine 44 Aminotransferase (AL T/SGPT) Alkaline Phosphatase 154 H Total Protein 5.5 L Albumin 2.3 L Globulin 3.20 Albumin/Globulin 0.71 Ratio Prealbumin 6.3 L Triglycerides Level 317 H Bedside Glucose 67 L 100 Test 09/13/18 17:35 09/13/18 20:28 09/14/18 00:15 09/14/18 04:08 Bedside Glucose 104 77 86 White Blood Count 19.6 H Red Blood Count 3.34 L Hemoglobin 7.9 L Hematocrit 28.7 L Mean Corpuscular 85.9 Volume Mean Corpuscular 23.7 L Hemoglobin Mean Corpuscular 27.5 L Hemoglobin Concent Red Cell 23.1 H Distribution Width Platelet Count 266 Mean Platelet Volume 10.2 Immature 8.100 H Granulocytes % Neutrophils % 72.5 Lymphocytes % 12.6 L Monocytes % 6.1 Eosinophils % 0.1 Basophils % 0.6 Nucleated Red Blood 4.2 H Cells % Immature 1.600 H Granulocytes # Neutrophils # 14.2 H Lymphocytes # 2.5 Monocytes # 1.2 H Eosinophils # 0.0 Basophils # 0.1 Nucleated Red Blood 0.8 H Cells # Sodium Level 133 L Potassium Level 4.7 Chloride Level 97 Carbon Dioxide Level 20 L Anion Gap 16 H Blood Urea Nitrogen 68 H Creatinine 5.47 H Est Glomerular 12 L Filtrat Rate mL/min Glucose Level 98 Calcium Level 7.9 L Phosphorus Level 6.4 H Magnesium Level 1.9 Total Bilirubin 0.1 L Direct Bilirubin 0.10 Indirect Bilirubin 0.0 Aspartate Amino 44 Transf (AST/SGOT) Alanine 35 Aminotransferase (AL T/SGPT) Alkaline Phosphatase 176 H Total Protein 5.7 L Albumin 2.3 L Globulin 3.40 H Albumin/Globulin 0.67 Ratio Random Vancomycin 14.6 Level Test 09/14/18 04:44 09/14/18 06:00 09/14/18 08:28 09/14/18 12:45 Bedside Glucose 103 102 108 105 Medications Medication Current Medications IV Flush (NS 3 ml) 3 ml PER PROTOCOL IV ; Start 08/08/18 at 17:30 Ondansetron HCl (Zofran Inj) 4 mg Q6H PRN IV NAUSEA; Start 08/08/18 at 17:30 Naphazoline HCl (Clear Eyes / Naphcon) 2 drop QID BOTH EYES Last administered on 09/14/18 12:46; Admin Dose 2 DROP; Start 08/16/18 at 18:14 Acetaminophen (Tylenol Liquid) 650 mg Q6H PRN NGT MILD PAIN(1-3)OR ELEVATED TEMP Last administered on 09/12/18 16:12; Admin Dose 650 MG; Start 08/17/18 at 00:57 Lorazepam (Ativan) 1 mg Q6H PRN IV AGITATION Last administered on 09/08/18 23:40; Admin Dose 1 MG; Start 08/28/18 at 02:30 Morphine Sulfate (morphine) 2 mg Q2H PRN IV SEVERE PAIN LEVEL 7-10 Last administered on 09/10/18 17:39; Admin Dose 2 MG; Start 08/28/18 at 09:00 Scopolamine (Transderm-Scop) 1 patch Q72H TRANSDERM Last administered on 09/12/18 12:11; Admin Dose 1 PATCH; Start 08/31/18 at 11:30 IV Flush (NS 10 ml) 10 ml PRN PRN IV IV PROTOCOL; Start 09/06/18 at 17:30 Albumin Human 100 ml @ 100 mls/hr DURING DIALYSIS PRN IV BLOOD PRESSURE SUPPORT Last administered on 09/07/18 18:04; Admin Dose 100 MLS/HR; Start 09/07/18 at 09:30 Albuterol (Ventolin Hfa) 4 puff Q6H RESP THERAPY INH Last administered on 09/14/18 13:17; Admin Dose 4 PUFF; Start 09/08/18 at 09:00 Ipratropium Dowell (Atrovent Hfa) 4 puff Q6HWA RESP THERAPY INH Last administered on 09/14/18 13:17; Admin Dose 4 PUFF; Start 09/08/18 at 09:00 Heparin Sodium (Porcine) (Heparin (1000 Units/ml)) 3,100 unit PRN CATHETER Last administered on 09/13/18 12:36; Admin Dose 3,100 UNIT; Start 09/08/18 at 14:00 Polyethylene Glycol (Miralax) 17 gm DAILY PRN GTB CONSTIPATION; Start 09/10/18 at 09:30 Acetylcysteine (Mucomyst) 1 ml Q6H RESP THERAPY NEB Last administered on 09/14/18 13:40; Admin Dose 1 ML; Start 09/10/18 at 14:00 Phenylephrine HCl 80 mg/Dextrose 250 ml @ 18.75 mls/ hr TITRATE IV Last administered on 09/14/18 12:55; Admin Dose 33.75 MLS/HR; Start 09/11/18 at 12:00 Multivitamins (Multivitamin) 30 ml DAILY GTB Last administered on 09/14/18 08:24; Admin Dose 30 ML; Start 09/13/18 at 09:00; Stop 09/14/18 at 15:59 Folic Acid (Folic Acid) 1 mg DAILY GTB Last administered on 09/14/18 08:23; Admin Dose 1 MG; Start 09/13/18 at 09:00 Zinc Sulfate (Zinc Sulfate) 220 mg DAILY GTB Last administered on 09/14/18 08:23; Admin Dose 220 MG; Start 09/13/18 at 09:00 Ascorbic Acid (Vitamin C) 250 mg DAILY GTB Last administered on 09/14/18 08:23; Admin Dose 250 MG; Start 09/13/18 at 09:00 Fluconazole/ Sodium Chloride 50 ml @ 50 mls/hr Q24H IVPB Last administered on 09/14/18 13:36; Admin Dose 50 MLS/HR; Start 09/12/18 at 14:00 Norepinephrine 32 mg/Dextrose 250 ml @ 0.47 mls/hr TITRATE IV Last administered on 09/14/18 01:34; Admin Dose 4.69 MLS/HR; Start 09/12/18 at 14:30 Vancomycin HCl (Vanco Iv Per Pharmacy) VANCOMYCIN PER PHARMACY PER PROTOCOL XX ; Start 09/12/18 at 13:30 Piperacillin Sod/ Tazobactam Sod 50 ml @ 100 mls/hr Q8 IVPB Last administered on 09/14/18at 13:07; Admin Dose 100 MLS/HR; Start 09/12/18 at 14:00 Pantoprazole 80 mg/Sodium Chloride 100 ml @ 10 mls/hr Q10H IV Last administered on 09/14/18at 08:23; Admin Dose 10 MLS/HR; Start 09/12/18 at 15:30 Diagnostic Test (Pha) (Accu-Chek) 1 ea 02 XX ; Start 09/13/18 at 02:00 Miscellaneous Information 1 ea NOTE XX ; Start 09/12/18 at 21:30 Glucose (Glutose) 15 gm Q15M PRN PO DECREASED GLUCOSE; Start 09/12/18 at 21:30 Glucose (Glutose) 22.5 gm Q15M PRN PO DECREASED GLUCOSE; Start 09/12/18 at 21:30 Dextrose (D50w Syringe) 25 ml Q15M PRN IV DECREASED GLUCOSE Last administered on 09/13/18at 16:36; Admin Dose 25 ML; Start 09/12/18 at 21:30 Dextrose (D50w Syringe) 50 ml Q15M PRN IV DECREASED GLUCOSE; Start 09/12/18 at 21:30 Glucagon (Glucagen) 1 mg Q15M PRN IM DECREASED GLUCOSE; Start 09/12/18 at 21:30 Glucose (Glutose) 15 gm Q15M PRN BUCCAL DECREASED GLUCOSE; Start 09/12/18 at 21:30 Insulin Aspart (Novolog Insulin Pen) NOVOLOG *MILD* ALGORI... Q4H SC ; Start 09/13/18 at 00:00 Dextrose/Sodium Chloride 1,000 ml @ 50 mls/hr Q20H IV Last administered on 09/14/18at 00:23; Admin Dose 50 MLS/HR; Start 09/13/18 at 00:00; Stop 09/14/18 at 16:00 Diagnostic Test (Pha) (Accu-Chek) 1 ea Q4 XX Last administered on 09/14/18at 05:00; Admin Dose 1 EA; Start 09/13/18 at 17:00 Miscellaneous Information (* Miscellaneous Pharmacy Order) DC IVF when TPN is started ONCE XX ; Start 09/13/18 at 21:00; Stop 09/14/18 at 16:00 Total Parenteral Nutrition 1,000 ml @ 50 mls/hr Q20H IV ; Start 09/14/18 at 16:00 Vancomycin HCl 1.25 gm/Sodium Chloride 250 ml @ 83.333 mls/ hr 1400 IVPB Last administered on 09/14/18at 13:57; Admin Dose 83.333 MLS/HR; Start 09/14/18 at 14:00; Stop 09/14/18 at 23:59 NIRAJ BARNES Sep 14, 2018 14:12
--- NOTE | 2018-09-14 15:53 | CONS ---
Assessment/Plan Assessment/Plan Hospital Course (Demo Recall) Patient remains unchanged still on Levophed and David-Synephrine drip still with low-grade fevers, T-max of 100.9, tachycardic, started on tube feeding via NG tube now at 20 cc/h. He is in no distress. WBC 19.6 H&H 7.9 and 28.7 platelets 266 neutrophils 72.5 Antimicrobials: Vancomycin, Zosyn, fluconazole Microbiology: Urine culture growing yeast, blood cultures since admission negative, drainage from G-tube site growing enterococcus species, susceptible to ampicillin and vancomycin. Abdominal fluid culture showed no growth Indwelling: Trach PEG right femoral Nikko left upper extremity PICC line, abdominal pigtail catheter, NG tube Physical examination: This is a morbidly obese well-developed middle-aged man who lethargic, in no distress. Head atraumatic normocephalic, neck is obese, tracheostomy present. Chest rise symmetrical breath sounds diminished. Heart: S1-S2, tachycardic. Abdomen obese, distended, patient has a large amount of drainage from G-tube site, bowel sounds hypoactive. Extremities with edema Assessment: 1. Severe sepsis with shock and multisystem organ failure 2. Large intra-abdominal abscess secondary to #3, status post pigtail catheter insertion 09/11/18 3. G-tube displacement, status post discontinued 4. Acute hypoxemic respiratory failure status post tracheostomy secondary to multiple failure to wean 5. Acute kidney failure, started on hemodialysis 6. Status post pneumonia 7. Morbid obesity 8. Belinda UTI 9. Belinda esophagitis Plan: Remains unchanged, continue present care, antibiotics, consider repeat left upper quadrant abdominal ultrasound DEBORAH RN Consultation Date/Type/Reason Admit Date/Time Aug 08, 2018 at 17:18 Initial Consult Date 08/09/18 Type of Consult ID Requesting Provider: TATI CARDOZA Date/Time of Note DATE: 09/14/18 TIME: 15:52 Exam/Review of Systems Exam Vitals Vital Signs Date Temp Pulse Resp B/P (MAP) Pulse Ox O2 O2 Flow FiO2 Time Delivery Rate 09/14/18 117 29 97 40 15:00 09/14/18 107/41 14:30 (63) 09/14/18 99.5 12:00 09/14/18 Mechanical 06:00 Ventilator Intake and Output 09/13/18 09/13/1819 1515:00 23:00 07:00 IntakeIntake Total 764.47 ml 915.76 ml 1014.70 ml OutputOutput Total 1500 ml 10 ml 40 ml BalanceBalance -735.53 ml 905.76 ml 974.70 ml Results Result Diagram: 09/14/18 0408 09/14/18 0408 Results 24hrs Laboratory Tests Test 09/13/18 16:33 09/13/18 17:09 09/13/18 17:35 09/13/18 20:28 Bedside Glucose 67 L 100 104 77 Test 09/14/18 00:15 09/14/18 04:08 09/14/18 04:44 09/14/18 06:00 Bedside Glucose 86 103 102 White Blood Count 19.6 H Red Blood Count 3.34 L Hemoglobin 7.9 L Hematocrit 28.7 L Mean Corpuscular 85.9 Volume Mean Corpuscular 23.7 L Hemoglobin Mean Corpuscular 27.5 L Hemoglobin Concent Red Cell 23.1 H Distribution Width Platelet Count 266 Mean Platelet Volume 10.2 Immature 8.100 H Granulocytes % Neutrophils % 72.5 Lymphocytes % 12.6 L Monocytes % 6.1 Eosinophils % 0.1 Basophils % 0.6 Nucleated Red Blood 4.2 H Cells % Immature 1.600 H Granulocytes # Neutrophils # 14.2 H Lymphocytes # 2.5 Monocytes # 1.2 H Eosinophils # 0.0 Basophils # 0.1 Nucleated Red Blood 0.8 H Cells # Sodium Level 133 L Potassium Level 4.7 Chloride Level 97 Carbon Dioxide Level 20 L Anion Gap 16 H Blood Urea Nitrogen 68 H Creatinine 5.47 H Est Glomerular 12 L Filtrat Rate mL/min Glucose Level 98 Calcium Level 7.9 L Phosphorus Level 6.4 H Magnesium Level 1.9 Total Bilirubin 0.1 L Direct Bilirubin 0.10 Indirect Bilirubin 0.0 Aspartate Amino 44 Transf (AST/SGOT) Alanine 35 Aminotransferase (AL T/SGPT) Alkaline Phosphatase 176 H Total Protein 5.7 L Albumin 2.3 L Globulin 3.40 H Albumin/Globulin 0.67 Ratio Random Vancomycin 14.6 Level Test 09/14/18 08:28 09/14/18 12:45 Bedside Glucose 108 105 Medications Medication Current Medications IV Flush (NS 3 ml) 3 ml PER PROTOCOL IV ; Start 08/08/18 at 17:30 Ondansetron HCl (Zofran Inj) 4 mg Q6H PRN IV NAUSEA; Start 08/08/18 at 17:30 Naphazoline HCl (Clear Eyes / Naphcon) 2 drop QID BOTH EYES Last administered on 09/14/18 12:46; Admin Dose 2 DROP; Start 08/16/18 at 18:14 Acetaminophen (Tylenol Liquid) 650 mg Q6H PRN NGT MILD PAIN(1-3)OR ELEVATED TEMP Last administered on 09/12/18 16:12; Admin Dose 650 MG; Start 08/17/18 at 00:57 Lorazepam (Ativan) 1 mg Q6H PRN IV AGITATION Last administered on 09/08/18 23:40; Admin Dose 1 MG; Start 08/28/18 at 02:30 Morphine Sulfate (morphine) 2 mg Q2H PRN IV SEVERE PAIN LEVEL 7-10 Last administered on 09/10/18 17:39; Admin Dose 2 MG; Start 08/28/18 at 09:00 Scopolamine (Transderm-Scop) 1 patch Q72H TRANSDERM Last administered on 09/12/18 12:11; Admin Dose 1 PATCH; Start 08/31/18 at 11:30 IV Flush (NS 10 ml) 10 ml PRN PRN IV IV PROTOCOL; Start 09/06/18 at 17:30 Albumin Human 100 ml @ 100 mls/hr DURING DIALYSIS PRN IV BLOOD PRESSURE SUPPORT Last administered on 09/07/18 18:04; Admin Dose 100 MLS/HR; Start 09/07/18 at 09:30 Albuterol (Ventolin Hfa) 4 puff Q6H RESP THERAPY INH Last administered on 09/14/18 13:17; Admin Dose 4 PUFF; Start 09/08/18 at 09:00 Ipratropium [place] (Atrovent Hfa) 4 puff Q6HWA RESP THERAPY INH Last administered on 09/14/18 13:17; Admin Dose 4 PUFF; Start 09/08/18 at 09:00 Heparin Sodium (Porcine) (Heparin (1000 Units/ml)) 3,100 unit PRN CATHETER Last administered on 09/13/18 12:36; Admin Dose 3,100 UNIT; Start 09/08/18 at 14:00 Polyethylene Glycol (Miralax) 17 gm DAILY PRN GTB CONSTIPATION; Start 09/10/18 at 09:30 Acetylcysteine (Mucomyst) 1 ml Q6H RESP THERAPY NEB Last administered on 09/14/18 13:40; Admin Dose 1 ML; Start 09/10/18 at 14:00 Phenylephrine HCl 80 mg/Dextrose 250 ml @ 18.75 mls/ hr TITRATE IV Last admi nistered on 09/14/18 12:55; Admin Dose 33.75 MLS/HR; Start 09/11/18 at 12:00 Multivitamins (Multivitamin) 30 ml DAILY GTB Last administered on 09/14/18 08:24; Admin Dose 30 ML; Start 09/13/18 at 09:00; Stop 09/14/18 at 15:59 Folic Acid (Folic Acid) 1 mg DAILY GTB Last administered on 09/14/18 08:23; Admin Dose 1 MG; Start 09/13/18 at 09:00 Zinc Sulfate (Zinc Sulfate) 220 mg DAILY GTB Last administered on 09/14/18 08:23; Admin Dose 220 MG; Start 09/13/18 at 09:00 Ascorbic Acid (Vitamin C) 250 mg DAILY GTB Last administered on 09/14/18 08:23; Admin Dose 250 MG; Start 09/13/18 at 09:00 Fluconazole/ Sodium Chloride 50 ml @ 50 mls/hr Q24H IVPB Last administered on 09/14/18 13:36; Admin Dose 50 MLS/HR; Start 09/12/18 at 14:00 Norepinephrine 32 mg/Dextrose 250 ml @ 0.47 mls/hr TITRATE IV Last administered on 09/14/18 01:34; Admin Dose 4.69 MLS/HR; Start 09/12/18 at 14:30 Vancomycin HCl (Vanco Iv Per Pharmacy) VANCOMYCIN PER PHARMACY PER PROTOCOL XX ; Start 09/12/18 at 13:30 Piperacillin Sod/ Tazobactam Sod 50 ml @ 100 mls/hr Q8 IVPB Last administered on 09/14/18 13:07; Admin Dose 100 MLS/HR; Start 09/12/18 at 14:00 Diagnostic Test (Pha) (Accu-Chek) 1 ea 02 XX ; Start 09/13/18 at 02:00 Miscellaneous Information 1 ea NOTE XX ; Start 09/12/18 at 21:30 Glucose (Glutose) 15 gm Q15M PRN PO DECREASED GLUCOSE; Start 09/12/18 at 21:30 Glucose (Glutose) 22.5 gm Q15M PRN PO DECREASED GLUCOSE; Start 09/12/18 at 21:30 Dextrose (D50w Syringe) 25 ml Q15M PRN IV DECREASED GLUCOSE Last administered on 09/13/18at 16:36; Admin Dose 25 ML; Start 09/12/18 at 21:30 Dextrose (D50w Syringe) 50 ml Q15M PRN IV DECREASED GLUCOSE; Start 09/12/18 at 21:30 Glucagon (Glucagen) 1 mg Q15M PRN IM DECREASED GLUCOSE; Start 09/12/18 at 21:30 Glucose (Glutose) 15 gm Q15M PRN BUCCAL DECREASED GLUCOSE; Start 09/12/18 at 21:30 Insulin Aspart (Novolog Insulin Pen) NOVOLOG *MILD* ALGORI... Q4H SC ; Start 09/13/18 at 00:00 Dextrose/Sodium Chloride 1,000 ml @ 50 mls/hr Q20H IV Last administered on 09/14/18at 00:23; Admin Dose 50 MLS/HR; Start 09/13/18 at 00:00; Stop 09/14/18 at 16:00 Diagnostic Test (Pha) (Accu-Chek) 1 ea Q4 XX Last administered on 09/14/18at 05:00; Admin Dose 1 EA; Start 09/13/18 at 17:00 Miscellaneous Information (* Miscellaneous Pharmacy Order) DC IVF when TPN is started ONCE XX ; Start 09/13/18 at 21:00; Stop 09/14/18 at 16:00 Total Parenteral Nutrition 1,000 ml @ 50 mls/hr Q20H IV ; Start 09/14/18 at 16:00 Vancomycin HCl 1.25 gm/Sodium Chloride 250 ml @ 83.333 mls/ hr 1400 IVPB Last administered on 09/14/18at 13:57; Admin Dose 83.333 MLS/HR; Start 09/14/18 at 14:00; Stop 09/14/18 at 23:59 Pantoprazole (Protonix Iv) 40 mg BID@06,18 IV ; Start 09/14/18 at 18:00 JOCELYN VILLALTA NP Sep 14, 2018 15:53
[2018-09-14] MEDS: TPN 1,000 ML IV SCH (16:33)
[2018-09-14] MEDS: PANTOPRAZOLE 40 MG INJ IV SCH (17:13)
[2018-09-14] MEDS: LORAZEPAM 2 MG INJ IV PRN (20:43)
[2018-09-15] VITALS (95 sets, daily range): BP systolic 60–141; BP diastolic 20–120; PULSE 109–132; RESP 24–57
[2018-09-15] MEDS: ACCU-CHEK XX SCH ×7 (00:28→22:00)
[2018-09-15] MEDS: METOCLOPRAMIDE 10 MG INJ IV SCH ×4 (00:40→22:05)
[2018-09-15] MEDS: ACETAMINOPHEN 650MG/20.3ML CUP NGT PRN ×2 (00:40→12:02)
[2018-09-15] MEDS: ALBUTEROL HFA 8 GM INHALER INH SCH ×4 (01:32→20:34)
[2018-09-15] MEDS: ACETYLCYSTEINE 20% 4 ML VIAL NEB SCH ×4 (01:32→20:34)
[2018-09-15] MEDS: INSULIN ASPART [NOVOLOG] 3 ML PEN SC SCH ×7 (04:00→23:59)
[2018-09-15] MEDS: PHENYLephrine 80 MG in DEXTROSE 5% 242 ML IV SCH ×5 (04:01→22:27)
[2018-09-15] MEDS: PIPER-TAZO 2.25 GM (PMX) 50 ML IVPB SCH (05:16)
[2018-09-15] MEDS: PANTOPRAZOLE 40 MG INJ IV SCH ×2 (05:16→18:59)
[2018-09-15] MEDS: IPRATROPIUM (HFA) 12.9 GM INHALER INH SCH ×3 (08:22→20:34)
[2018-09-15] MEDS: MIDAZOLAM (DRIP) 50 mg/50 mL 50 ML IV SCH ×2 (08:34→21:12)
[2018-09-15] MEDS: ZINC SULFATE 220 MG CAP GTB SCH (08:51)
[2018-09-15] MEDS: FOLIC ACID 1 MG TAB GTB SCH (08:51)
[2018-09-15] MEDS: ASCORBIC ACID 250 MG TAB GTB SCH (08:51)
[2018-09-15] MEDS: NAPHAZOLINE 0.012% 15 ML OPH BOTH EYES SCH ×4 (08:52→20:56)
[2018-09-15] MEDS: BALSAM PERU/CASTOR OIL 60 GM TUBE TOP SCH ×2 (08:52→23:05)
--- NOTE | 2018-09-15 09:10 | PN ---
Date/Time of Note Date/Time of Note DATE: 09/15/18 TIME: 09:07 Assessment/Plan VTE Prophylaxis Risk score (from Ns)>0 risk: 9 SCD applied (from Ns): Yes Pharmacological prophylaxis: other Lines/Catheters IV Catheter Type (from Nrs): Trialysis Urinary Cath still in place: No Assessment/Plan Hospital Course S: Pt on pressor support x 2 now, started on TPN yesterday. Concern of possible aspiration event overnight, and now NG tube feeds held this AM. Still + frequent fevers overnight. Awaiting HD later today. CXR today still shows fluid and infiltrates. Repeat abdominal ultrasound ordered this morning. Off Protonix drip now. O: VS - see below PE: Gen: Morbidly obese man lying in bed, still lethargic Neck: Obese, trach, no lymphadenopathy appreciated HEENT: Clear oropharynx, moist mucous membranes Card: Sinus tach, distant heart sounds Pulm: some distant lung sounds. Abd: Morbidly obese, soft, nontender Ext: Bilateral LE chronic venous stasis changes. Neuro: No focal deficits Assessment/Plan: 32yo Morbidly obese man who had presented with shortness of breath currently managed as follows: #. Hypoxic/hypercapnic respiratory failure-Secondary to ANDREW, exacerbated by pneumonia, underlying COPD -Intubated , status post trach 08/24 -still with secretions requiring frequent suctioning and copious secretions-steroids added 09/05/18-back on vent 09/07/18. Steroids have been off now for the last few days. Still with leukocytosis and fevers, -Continue mechanical ventilation per pulmonary recommendations via trach, Mucomyst, duo nebs as needed, antibiotics -Scopolamine for secretions, #. Sepsis/shock-still on pressor support x 2, still with fevers, tachycardia. Respiratory cultures grew Proteus and MDR Acinetobacter. Urine culture positive for Belinda. Positive Belinda esophagitis. Wound culture positive for entero coccus. Again patient had drainage of the abdominal fluid collection 4 days ago, potential source as well. White blood cell count today 18.8. - continue current antibiotics:follow-up ID recommendations -they are considering changing from Zosyn to meropenem today, try to wean off pressor support as tolerated - Monitor drainage from LUPE drain in the intra-abdominal area, follow-up ID and surgery recommendations. -Per the ID recommendations, we have ordered repeat abdominal ultrasound today to reassess for any potential fluid collection or abscess, follow-up results of this # Encephalopathy, toxic metabolic, r/o hypoxic ischemic-patient remains confused intermittently, may have suffered a brain insult, but unable to get MRI or CT 08/19 weight -appreciate neurology consult, will follow recs -earlier patient was on Seroquel, patient is still quite confused, this has been weaned off now -Monitor, follow-up neurology recommendations #. renal insufficiency now started on hemodialysis -schaefer was changed to r/o obstruction 09/06/18-1st session 09/07/18, -Continue HD per renal recs -next session today #. Dislodged G tube with iatrogenic fluid pocket of extravasated tube feed-again status post IR drainage of large pocket of tube feed -abdominal fluid collection noted-Again status post US-guided drainage 4 days ago, monitor drainage, also status post EGD 3 days ago with candidiasis found in the esophagus, along with esophageal ulceration but no active bleeding noted. However afterwards patient did have some upper GI bleeding noted from the NG tube. Hemoglobin today 7.7 - follow-up post procedure recommendations, drainage from the abdominal site, culture results, continue antibiotics -Continue to hold NG tube feeds for now at lower rate, continue TPN now -Continue fluconazole IV for esophageal candidiasis, follow up GI recommendations, also on PPI IV twice daily now #. Chronic hypochromic anemia -stable, monitor #. Severe Obesity-high risk for skin breakdown-appears controlled calories while on tube feeds-has lost ~ 40 pounds so far since admission per nursing, but much of this could be diuresis. -Continue to monitor for now, counseled on weight loss #. Debility and lethargy -PT limited by patient's mental status #. Hyperbilirubinemia - predominantly direct, alkaline phosphatase is normal - liver USS showed diffuse fatty liver -Follow-up am labs with hepatitis screen #. Tachycardia -related to fevers-sepsis per cardio, appreciate input -Monitor, continue IV fluids, wean off pressor support as tolerated Dispo: Given Actinobacter multidrug-resistant respiratory infection, along with other infections still on pressor support, needs for dialysis, trach, NG tube feeds, abdominal fluid collection status post IR guided drainage, overall poor prognosis. Family meeting planned for later this afternoon. Critical care time spent in patient care today equals 40 minutes. Result Diagram: 09/15/18 0410 09/15/18 0410 Results 24hrs Laboratory Tests Test 09/14/18 12:45 09/14/18 17:05 09/14/18 20:47 09/15/18 00:15 Bedside Glucose 105 97 119 112 Test 09/15/18 02:00 09/15/18 04:03 09/15/18 04:10 09/15/18 08:55 Blood Gas Blood arterial Specimen Source Arterial Blood 09/15/2018 2:20:15 Date Drawn AM Arterial Blood pH 7.330 L (Temp corrected) Arterial Blood 40.8 pCO2 (Temp correct) Arterial Blood 81.9 pO2 (Temp corrected) Arterial Blood 21.0 L HCO3 Arterial Blood -4.6 L Base Excess Arterial Blood 93.4 L Oxygen Saturation James Test ACCEPTAB Arterial Blood Right Radial Gas Puncture Site Arterial 0.3 Blood Carboxyhemo globin Arterial Blood 0.4 Methemoglobin Blood Gas A-a O2 156.4 H Differential Oxyhemoglobin 92.7 L Percent Blood Gas 37.0 Temperature Blood Gas 20.0 Respiration Rate Blood Gas Actual 28 Respiration Rate Blood Gas VENT - AC Modality FiO2 40.0 Blood Gas Tidal 550.0 Volume Blood Gas Low 5.0 PEEP Setting Blood Gas [place] Notified Whom Blood Gas 09/15/2018 2:38:58 Notified Time AM Bedside Glucose 136 135 White Blood Count 18.8 H Red Blood Count 3.20 L Hemoglobin 7.7 L Hematocrit 29.5 L Mean Corpuscular 92.2 Volume Mean Corpuscular 24.1 L Hemoglobin Mean Corpuscular 26.1 L Hemoglobin Concen t Red Cell 22.4 H Distribution Width Platelet Count 277 Mean Platelet 10.4 Volume Immature 11.100 H Granulocytes % Neutrophils % 63.3 Segmented 35 L Neutrophils % (Manual) Band Neutrophils 18 H % (Manual) Lymphocytes % 17.5 Lymphocytes % 36 (Manual) Monocytes % 7.2 Monocytes % 4 (Manual) Eosinophils % 0.2 Eosinophils % 1 (Manual) Basophils % 0.7 Myelocytes % 3 H (Manual) Promyelocytes % 3 H (Manual) Nucleated Red 30 H Blood Cells % Immature 2.080 H Granulocytes # Neutrophils # 11.9 H Neutrophils # 7.2 (Manual) Band Neutrophils 3.3 H # Lymphocytes 6.7 H (Manual) Lymphocytes # 3.3 H Monocytes # 1.4 H Monocytes # 0.7 (Manual) Eosinophils # 0.0 Basophils # 0.1 Myelocytes # 0.5 H Promyelocytes # 0.5 H Nucleated Red 4.7 H Blood Cells # Platelet Estimate NORMAL Polychromasia 1+ Hypochromasia 2+ Poikilocytosis 2+ Anisocytosis 2+ Microcytosis 1+ Macrocytosis 1+ Target Cells 1+ Sodium Level 133 L Potassium Level 4.4 Chloride Level 94 L Carbon Dioxide 21 Level Anion Gap 18 H Blood Urea 68 H Nitrogen Creatinine 6.77 H Est Glomerular 9 L Filtrat Rate mL/min Glucose Level 119 Calcium Level 8.1 L Phosphorus Level 5.1 H Magnesium Level 2.1 Total Bilirubin 0.4 Direct Bilirubin 0.40 #H Indirect 0.0 Bilirubin Aspartate Amino 39 Transf (AST/SGOT) Alanine 44 Aminotransferase (ALT/SGPT) Alkaline 197 H Phosphatase Total Protein 5.4 L Albumin 2.2 L Globulin 3.20 Albumin/Globulin 0.68 Ratio Exam/Review of Systems Exam Vitals Vital Signs Date Temp Pulse Resp B/P (MAP) Pulse Ox O2 O2 Flow FiO2 Time Delivery Rate 09/15/18 125 31 89/35 (53) 97 05:45 09/15/18 40 05:40 09/15/18 Mechanica 05:00 l Ventilato r 09/15/18 100.9 04:00 Intake and Output 09/14/18 09/14/18 09/15/18 1515:00 23:00 07:00 IntakeIntake Total 1109.57 ml 1051.99 ml 643.905 ml OutputOutput Total 0 ml 90 ml 210 ml BalanceBalance 1109.57 ml 961.99 ml 433.905 ml Results Results 24hrs Laboratory Tests Test 09/14/18 12:45 09/14/18 17:05 09/14/18 20:47 09/15/18 00:15 Bedside Glucose 105 97 119 112 Test 09/15/18 02:00 09/15/18 04:03 09/15/18 04:10 09/15/18 08:55 Blood Gas Blood arterial Specimen Source Arterial Blood 09/15/2018 2:20:15 Date Drawn AM Arterial Blood pH 7.330 L (Temp corrected) Arterial Blood 40.8 pCO2 (Temp correct) Arterial Blood 81.9 pO2 (Temp corrected) Arterial Blood 21.0 L HCO3 Arterial Blood -4.6 L Base Excess Arterial Blood 93.4 L Oxygen Saturation James Test ACCEPTAB Arterial Blood Right Radial Gas Puncture Site Arterial 0.3 Blood Carboxyhemo globin Arterial Blood 0.4 Methemoglobin Blood Gas A-a O2 156.4 H Differential Oxyhemoglobin 92.7 L Percent Blood Gas 37.0 Temperature Blood Gas 20.0 Respiration Rate Blood Gas Actual 28 Respiration Rate Blood Gas VENT - AC Modality FiO2 40.0 Blood Gas Tidal 550.0 Volume Blood Gas Low 5.0 PEEP Setting Blood Gas [place] Notified Whom Blood Gas 09/15/2018 2:38:58 Notified Time AM Bedside Glucose 136 135 White Blood Count 18.8 H Red Blood Count 3.20 L Hemoglobin 7.7 L Hematocrit 29.5 L Mean Corpuscular 92.2 Volume Mean Corpuscular 24.1 L Hemoglobin Mean Corpuscular 26.1 L Hemoglobin Concen t Red Cell 22.4 H Distribution Width Platelet Count 277 Mean Platelet 10.4 Volume Immature 11.100 H Granulocytes % Neutrophils % 63.3 Segmented 35 L Neutrophils % (Manual) Band Neutrophils 18 H % (Manual) Lymphocytes % 17.5 Lymphocytes % 36 (Manual) Monocytes % 7.2 Monocytes % 4 (Manual) Eosinophils % 0.2 Eosinophils % 1 (Manual) Basophils % 0.7 Myelocytes % 3 H (Manual) Promyelocytes % 3 H (Manual) Nucleated Red 30 H Blood Cells % Immature 2.080 H Granulocytes # Neutrophils # 11.9 H Neutrophils # 7.2 (Manual) Band Neutrophils 3.3 H # Lymphocytes 6.7 H (Manual) Lymphocytes # 3.3 H Monocytes # 1.4 H Monocytes # 0.7 (Manual) Eosinophils # 0.0 Basophils # 0.1 Myelocytes # 0.5 H Promyelocytes # 0.5 H Nucleated Red 4.7 H Blood Cells # Platelet Estimate NORMAL Polychromasia 1+ Hypochromasia 2+ Poikilocytosis 2+ Anisocytosis 2+ Microcytosis 1+ Macrocytosis 1+ Target Cells 1+ Sodium Level 133 L Potassium Level 4.4 Chloride Level 94 L Carbon Dioxide 21 Level Anion Gap 18 H Blood Urea 68 H Nitrogen Creatinine 6.77 H Est Glomerular 9 L Filtrat Rate mL/min Glucose Level 119 Calcium Level 8.1 L Phosphorus Level 5.1 H Magnesium Level 2.1 Total Bilirubin 0.4 Direct Bilirubin 0.40 #H Indirect 0.0 Bilirubin Aspartate Amino 39 Transf (AST/SGOT) Alanine 44 Aminotransferase (ALT/SGPT) Alkaline 197 H Phosphatase Total Protein 5.4 L Albumin 2.2 L Globulin 3.20 Albumin/Globulin 0.68 Ratio Medications Medication Current Medications IV Flush (NS 3 ml) 3 ml PER PROTOCOL IV ; Start 08/08/18 at 17:30 Ondansetron HCl (Zofran Inj) 4 mg Q6H PRN IV NAUSEA; Start 08/08/18 at 17:30 Naphazoline HCl (Clear Eyes / Naphcon) 2 drop QID BOTH EYES Last administered on 09/15/18 08:52; Admin Dose 2 DROP; Start 08/16/18 at 18:14 Acetaminophen (Tylenol Liquid) 650 mg Q6H PRN NGT MILD PAIN(1-3)OR ELEVATED TEMP Last administered on 09/15/18 00:40; Admin Dose 650 MG; Start 08/17/18 at 00:57 Lorazepam (Ativan) 1 mg Q6H PRN IV AGITATION Last administered on 09/14/18 20:43; Admin Dose 1 MG; Start 08/28/18 at 02:30 Morphine Sulfate (morphine) 2 mg Q2H PRN IV SEVERE PAIN LEVEL 7-10 Last administered on 09/10/18 17:39; Admin Dose 2 MG; Start 08/28/18 at 09:00 Scopolamine (Transderm-Scop) 1 patch Q72H TRANSDERM Last administered on 09/12/18 12:11; Admin Dose 1 PATCH; Start 08/31/18 at 11:30 IV Flush (NS 10 ml) 10 ml PRN PRN IV IV PROTOCOL; Start 09/06/18 at 17:30 Albumin Human 100 ml @ 100 mls/hr DURING DIALYSIS PRN IV BLOOD PRESSURE SUPPORT Last administered on 09/07/18 18:04; Admin Dose 100 MLS/HR; Start 09/07/18 at 09:30 Albuterol (Ventolin Hfa) 4 puff Q6H RESP THERAPY INH Last administered on 09/15/18 08:22; Admin Dose 4 PUFF; Start 09/08/18 at 09:00 Ipratropium [place] (Atrovent Hfa) 4 puff Q6HWA RESP THERAPY INH Last administered on 09/15/18 08:22; Admin Dose 4 PUFF; Start 09/08/18 at 09:00 Heparin Sodium (Porcine) (Heparin (1000 Units/ml)) 3,100 unit PRN CATHETER Last administered on 09/13/18 12:36; Admin Dose 3,100 UNIT; Start 09/08/18 at 14:00 Polyethylene Glycol (Miralax) 17 gm DAILY PRN GTB CONSTIPATION; Start 09/10/18 at 09:30 Acetylcysteine (Mucomyst) 1 ml Q6H RESP THERAPY NEB Last administered on 09/15/18 08:22; Admin Dose 1 ML; Start 09/10/18 at 14:00 Phenylephrine HCl 80 mg/Dextrose 250 ml @ 18.75 mls/ hr TITRATE IV Last administered on 09/15/18 04:01; Admin Dose 37.5 MLS/HR; Start 09/11/18 at 12:00 Folic Acid (Folic Acid) 1 mg DAILY GTB Last administered on 09/15/18 08:51; Ad min Dose 1 MG; Start 09/13/18 at 09:00 Zinc Sulfate (Zinc Sulfate) 220 mg DAILY GTB Last administered on 09/15/18 08:51; Admin Dose 220 MG; Start 09/13/18 at 09:00 Ascorbic Acid (Vitamin C) 250 mg DAILY GTB Last administered on 09/15/18 08:51; Admin Dose 250 MG; Start 09/13/18 at 09:00 Fluconazole/ Sodium Chloride 50 ml @ 50 mls/hr Q24H IVPB Last administered on 09/14/18 13:36; Admin Dose 50 MLS/HR; Start 09/12/18 at 14:00 Norepinephrine 32 mg/Dextrose 250 ml @ 0.47 mls/hr TITRATE IV Last administered on 09/14/18 01:34; Admin Dose 4.69 MLS/HR; Start 09/12/18 at 14:30 Vancomycin HCl (Vanco Iv Per Pharmacy) VANCOMYCIN PER PHARMACY PER PROTOCOL XX ; Start 09/12/18 at 13:30 Piperacillin Sod/ Tazobactam Sod 50 ml @ 100 mls/hr Q8 IVPB Last administered on 09/15/18 05:16; Admin Dose 100 MLS/HR; Start 09/12/18 at 14:00 Diagnostic Test (Pha) (Accu-Chek) 02 XX ; Start 09/13/18 at 02:00 Miscellaneous Information 1 ea NOTE XX ; Start 09/12/18 at 21:30 Glucose (Glutose) 15 gm Q15M PRN PO DECREASED GLUCOSE; Start 09/12/18 at 21:30 Glucose (Glutose) 22.5 gm Q15M PRN PO DECREASED GLUCOSE; Start 09/12/18 at 21:30 Dextrose (D50w Syringe) 25 ml Q15M PRN IV DECREASED GLUCOSE Last administered on 09/13/18at 16:36; Admin Dose 25 ML; Start 09/12/18 at 21:30 Dextrose (D50w Syringe) 50 ml Q15M PRN IV DECREASED GLUCOSE; Start 09/12/18 at 21:30 Glucagon (Glucagen) 1 mg Q15M PRN IM DECREASED GLUCOSE; Start 09/12/18 at 21:30 Glucose (Glutose) 15 gm Q15M PRN BUCCAL DECREASED GLUCOSE; Start 09/12/18 at 21:30 Insulin Aspart (Novolog Insulin Pen) NOVOLOG *MILD* ALGORI... Q4H SC ; Start 09/13/18 at 00:00 Diagnostic Test (Pha) (Accu-Chek) 1 ea Q4 XX Last administered on 09/15/18at 04:03; Admin Dose 1 EA; Start 09/13/18 at 17:00 Total Parenteral Nutrition 1,000 ml @ 50 mls/hr Q20H IV Last administered on 09/14/18at 16:33; Admin Dose 50 MLS/HR; Start 09/14/18 at 16:00 Pantoprazole (Protonix Iv) 40 mg BID@06,18 IV Last administered on 09/15/18at 05:16; Admin Dose 40 MG; Start 09/14/18 at 18:00 Metoclopramide HCl (Reglan) 10 mg Q6 IV Last administered on 09/15/18at 05:16; Admin Dose 10 MG; Start 09/15/18 at 00:00; Stop 09/15/18 at 23:59 Midazolam HCl 50 ml @ 1 mls/hr TITRATE IV Last administered on 09/15/18at 08:34; Admin Dose 1 MLS/HR; Start 09/15/18 at 08:00 RC GO Sep 15, 2018 09:10
--- NOTE | 2018-09-15 11:58 | PN ---
Date/Time of Note Date/Time of Note DATE: 09/15/18 TIME: 11:58 Assessment/Plan Lines/Catheters IV Catheter Type (from Nrsg): trialysis Santiago in Place (from Nrsg): No Assessment/Plan Assessment/Plan Status post tracheostomy Trach site clean No bleeding We will continue vent support Trach care Pulmonary toilet Subjective 24 Hr Interval Summary Constitutional: improved Pain Control: mild Exam/Review of Systems Vital Signs Vitals Vital Signs Date Temp Pulse Resp B/P (MAP) Pulse Ox O2 O2 Flow FiO2 Time Delivery Rate 09/15/18 110 11:45 09/15/18 102/120 96 [place] 11:07 (114) l Ventilato r Trach Collar 09/15/18 40 09:40 09/15/18 100.9 04:00 Intake and Output 09/14/18 09/14/18 09/15/18 1515:00 23:00 07:00 IntakeIntake Total 1109.57 ml 1051.99 ml 643.905 ml OutputOutput Total 0 ml 90 ml 210 ml BalanceBalance 1109.57 ml 961.99 ml 433.905 ml Exam Eyes: nl conjunctiva, EOMI, nl lids, nl sclera ENMT: nl external ears & nose, nl lips & teeth, nl nasal mucosa & septum, mucosa pink and moist Neck: supple, non-tender Respiratory: clear to auscultation, normal air movement Cardiovascular: regular rate and rhythm, nl pulses Gastrointestinal: soft, nl liver, spleen, non-tender Results Result Diagram: 09/15/1840909/15/18409 TIMMY DALAL MD Sep 15, 2018 11:58
[2018-09-15] MEDS ORDERED: MEROPENEM 500MG/50 ML (PMX) 50 ML IVPB SCH (12:00)
[2018-09-15] MEDS: SCOPOLAMINE 1.5 MG PATCH TRANSDERM SCH (12:02)
--- NOTE | 2018-09-15 12:05 | CONS ---
Consult Date/Type/Reason Admit Date/Time Aug 08, 2018 at 17:18 Initial Consult Date 08/09/18 Type of Consult Pulmonary Requesting Provider: TATI CARDOZA Date/Time of Note DATE: 09/15/18 TIME: 11:55 Subjective Patient more altered, I do not respiration earlier. Continues to vasopressors. Improved leukocytosis. Objective Vital Signs Date Temp Pulse Resp B/P (MAP) Pulse Ox O2 O2 Flow FiO2 Time Delivery Rate 09/15/18 117 11:15 09/15/18 102/120 96 [place] 11:07 (114) l Ventilato r Trach Collar 09/15/18 40 09:40 09/15/18 100.9 04:00 Intake and Output 09/14/18 09/14/18 09/15/18 1515:00 23:00 07:00 IntakeIntake Total 1109.57 ml 1051.99 ml 643.905 ml OutputOutput Total 0 ml 90 ml 210 ml BalanceBalance 1109.57 ml 961.99 ml 433.905 ml Exam GENERAL: Obese young gentleman tracheostomy on mechanical ventilation VITAL SIGNS: per chart NECK: Supple. No JVD or lymphadenopathy. CARDIAC EXAM: S1, S2. No added sounds or murmurs. CHEST: Diminished air entry bilaterally. ABDOMEN: Soft, nontender. No guarding or rebound. Decreased bowel sounds EXTREMITIES: No cyanosis, clubbing, edema +2 NEUROLOGIC: Generalized weakness. No focal deficits. Vent Setting Ventilator Support Mode: AC, VC plus Fraction of Inspired Oxygen pe: 40 Positive End Expiratory Pressu: 5.0 Results/Medications Result Diagram: 09/15/18 0410 09/15/18 0410 Results 24 hrs Laboratory Tests Test 09/14/18 12:45 09/14/18 17:05 09/14/18 20:47 09/15/18 00:15 Bedside Glucose 105 97 119 112 Test 09/15/18 02:00 09/15/18 04:03 09/15/18 04:10 09/15/18 08:55 Blood Gas Blood arterial Specimen Source Arterial Blood 09/15/2018 2:20:15 Date Drawn AM Arterial Blood pH 7.330 L (Temp corrected) Arterial Blood 40.8 pCO2 (Temp correct) Arterial Blood 81.9 pO2 (Temp corrected) Arterial Blood 21.0 L HCO3 Arterial Blood -4.6 L Base Excess Arterial Blood 93.4 L Oxygen Saturation James Test ACCEPTAB Arterial Blood Right Radial Gas Puncture Site Arterial 0.3 Blood Carboxyhemo globin Arterial Blood 0.4 Methemoglobin Blood Gas A-a O2 156.4 H Differential Oxyhemoglobin 92.7 L Percent Blood Gas 37.0 Temperature Blood Gas 20.0 Respiration Rate Blood Gas Actual 28 Respiration Rate Blood Gas VENT - AC Modality FiO2 40.0 Blood Gas Tidal 550.0 Volume Blood Gas Low 5.0 PEEP Setting Blood Gas TX Notified Whom Blood Gas 09/15/2018 2:38:58 Notified Time AM Bedside Glucose 136 135 White Blood Count 18.8 H Red Blood Count 3.20 L Hemoglobin 7.7 L Hematocrit 29.5 L Mean Corpuscular 92.2 Volume Mean Corpuscular 24.1 L Hemoglobin Mean Corpuscular 26.1 L Hemoglobin Concen t Red Cell 22.4 H Distribution Width Platelet Count 277 Mean Platelet 10.4 Volume Immature 11.100 H Granulocytes % Neutrophils % 63.3 Segmented 35 L Neutrophils % (Manual) Band Neutrophils 18 H % (Manual) Lymphocytes % 17.5 Lymphocytes % 36 (Manual) Monocytes % 7.2 Monocytes % 4 (Manual) Eosinophils % 0.2 Eosinophils % 1 (Manual) Basophils % 0.7 Myelocytes % 3 H (Manual) Promyelocytes % 3 H (Manual) Nucleated Red 30 H Blood Cells % Immature 2.080 H Granulocytes # Neutrophils # 11.9 H Neutrophils # 7.2 (Manual) Band Neutrophils 3.3 H # Lymphocytes 6.7 H (Manual) Lymphocytes # 3.3 H Monocytes # 1.4 H Monocytes # 0.7 (Manual) Eosinophils # 0.0 Basophils # 0.1 Myelocytes # 0.5 H Promyelocytes # 0.5 H Nucleated Red 4.7 H Blood Cells # Platelet Estimate NORMAL Polychromasia 1+ Hypochromasia 2+ Poikilocytosis 2+ Anisocytosis 2+ Microcytosis 1+ Macrocytosis 1+ Target Cells 1+ Sodium Level 133 L Potassium Level 4.4 Chloride Level 94 L Carbon Dioxide 21 Level Anion Gap 18 H Blood Urea 68 H Nitrogen Creatinine 6.77 H Est Glomerular 9 L Filtrat Rate mL/min Glucose Level 119 Calcium Level 8.1 L Phosphorus Level 5.1 H Magnesium Level 2.1 Total Bilirubin 0.4 Direct Bilirubin 0.40 #H Indirect 0.0 Bilirubin Aspartate Amino 39 Transf (AST/SGOT) Alanine 44 Aminotransferase (ALT/SGPT) Alkaline 197 H Phosphatase Total Protein 5.4 L Albumin 2.2 L Globulin 3.20 Albumin/Globulin 0.68 Ratio Medications Current Medications IV Flush (NS 3 ml) 3 ml PER PROTOCOL IV ; Start 08/08/18 at 17:30 Ondansetron HCl (Zofran Inj) 4 mg Q6H PRN IV NAUSEA; Start 08/08/18 at 17:30 Naphazoline HCl (Clear Eyes / Naphcon) 2 drop QID BOTH EYES Last administered on 09/15/18 08:52; Admin Dose 2 DROP; Start 08/16/18 at 18:14 Acetaminophen (Tylenol Liquid) 650 mg Q6H PRN NGT MILD PAIN(1-3)OR ELEVATED TEMP Last administered on 09/15/18 00:40; Admin Dose 650 MG; Start 08/17/18 at 00:57 Lorazepam (Ativan) 1 mg Q6H PRN IV AGITATION Last administered on 09/14/18 20:43; Admin Dose 1 MG; Start 08/28/18 at 02:30 Morphine Sulfate (morphine) 2 mg Q2H PRN IV SEVERE PAIN LEVEL 7-10 Last administered on 09/10/18 17:39; Admin Dose 2 MG; Start 08/28/18 at 09:00 Scopolamine (Transderm-Scop) 1 patch Q72H TRANSDERM Last administered on 09/12/18 12:11; Admin Dose 1 PATCH; Start 08/31/18 at 11:30 IV Flush (NS 10 ml) 10 ml PRN PRN IV IV PROTOCOL; Start 09/06/18 at 17:30 Albumin Human 100 ml @ 100 mls/hr DURING DIALYSIS PRN IV BLOOD PRESSURE SUPPORT Last administered on 09/07/18 18:04; Admin Dose 100 MLS/HR; Start 09/07/18 at 09:30 Albuterol (Ventolin Hfa) 4 puff Q6H RESP THERAPY INH Last administered on 09/15/18 08:22; Admin Dose 4 PUFF; Start 09/08/18 at 09:00 Ipratropium [place] (Atrovent Hfa) 4 puff Q6HWA RESP THERAPY INH Last administered on 09/15/18 08:22; Admin Dose 4 PUFF; Start 09/08/18 at 09:00 Heparin Sodium (Porcine) (Heparin (1000 Units/ml)) 3,100 unit PRN CATHETER Last administered on 09/13/18 12:36; Admin Dose 3,100 UNIT; Start 09/08/18 at 14:00 Polyethylene Glycol (Miralax) 17 gm DAILY PRN GTB CONSTIPATION; Start 09/10/18 at 09:30 Acetylcysteine (Mucomyst) 1 ml Q6H RESP THERAPY NEB Last administered on 09/15/18 08:22; Admin Dose 1 ML; Start 09/10/18 at 14:00 Phenylephrine HCl 80 mg/Dextrose 250 ml @ 18.75 mls/ hr TITRATE IV Last administered on 09/15/18 09:11; Admin Dose 56.25 MLS/HR; Start 09/11/18 at 12:00 Folic Acid (Folic Acid) 1 mg DAILY GTB Last administered on 09/15/18 08:51; Admin Dose 1 MG; Start 09/13/18 at 09:00 Zinc Sulfate (Zinc Sulfate) 220 mg DAILY GTB Last administered on 09/15/18 08:51; Admin Dose 220 MG; Start 09/13/18 at 09:00 Ascorbic Acid (Vitamin C) 250 mg DAILY GTB Last administered on 09/15/18 08:51; Admin Dose 250 MG; Start 09/13/18 at 09:00 Fluconazole/ Sodium Chloride 50 ml @ 50 mls/hr Q24H IVPB Last administered on 09/14/18 13:36; Admin Dose 50 MLS/HR; Start 09/12/18 at 14:00 Norepinephrine 32 mg/Dextrose 250 ml @ 0.47 mls/hr TITRATE IV Last administered on 09/14/18 01:34; Admin Dose 4.69 MLS/HR; Start 09/12/18 at 14:30 Vancomycin HCl (Vanco Iv Per Pharmacy) VANCOMYCIN PER PHARMACY PER PROTOCOL XX ; Start 09/12/18 at 13:30 Diagnostic Test (Pha) (Accu-Chek) 1 ea 02 XX ; Start 09/13/18 at 02:00 Miscellaneous Information 1 ea NOTE XX ; Start 09/12/18 at 21:30 Glucose (Glutose) 15 gm Q15M PRN PO DECREASED GLUCOSE; Start 09/12/18 at 21:30 Glucose (Glutose) 22.5 gm Q15M PRN PO DECREASED GLUCOSE; Start 09/12/18 at 21:30 Dextrose (D50w Syringe) 25 ml Q15M PRN IV DECREASED GLUCOSE Last administered on 09/13/18at 16:36; Admin Dose 25 ML; Start 09/12/18 at 21:30 Dextrose (D50w Syringe) 50 ml Q15M PRN IV DECREASED GLUCOSE; Start 09/12/18 at 21:30 Glucagon (Glucagen) 1 mg Q15M PRN IM DECREASED GLUCOSE; Start 09/12/18 at 21:30 Glucose (Glutose) 15 gm Q15M PRN BUCCAL DECREASED GLUCOSE; Start 09/12/18 at 21:30 Insulin Aspart (Novolog Insulin Pen) NOVOLOG *MILD* ALGORI... Q4H SC ; Start 09/13/18 at 00:00 Diagnostic Test (Pha) (Accu-Chek) 1 ea Q4 XX Last administered on 09/15/18at 09:21; Admin Dose 1 EA; Start 09/13/18 at 17:00 Total Parenteral Nutrition 1,000 ml @ 50 mls/hr Q20H IV Last administered on 09/14/18at 16:33; Admin Dose 50 MLS/HR; Start 09/14/18 at 16:00 Pantoprazole (Protonix Iv) 40 mg BID@06,18 IV Last administered on 09/15/18at 05:16; Admin Dose 40 MG; Start 09/14/18 at 18:00 Midazolam HCl 50 ml @ 1 mls/hr TITRATE IV Last administered on 09/15/18at 08:34; Admin Dose 1 MLS/HR; Start 09/15/18 at 08:00 Metoclopramide HCl (Reglan) 5 mg Q8 IV ; Start 09/15/18 at 14:00 Fentanyl 100 ml @ 2.5 mls/hr TITRATE IV ; Start 09/15/18 at 11:30 Meropenem/Sodium Chloride 50 ml @ 100 mls/hr Q12 IVPB ; Start 09/15/18 at 12:00 Assessment/Plan Hospital Course (Demo Recall) IMP: 1. Acute on chronic hypoxemic and hypercapnic respiratory failure, failed multi ple weaning trials status post tracheostomy. Significant secretions, 2. G-tube was misplaced with tube feeding and abdominal cavity. No removed patient currently not tolerating nasogastric tube feeding. 3. History of obesity hypoventilation syndrome and probable obstructive sleep apnea 4. Leukocytosis With ongoing fevers and persistent diarrhea. 5. Acute renal failure. Now on hemodialysis 6. Persistent septic shock polymicrobial with Acinetobacter now likely colonized 7. Anemia but no active bleeding. RECS: 1. Continue AC mechanical ventilation increase tidal volume 650. Placed on sedation for respiratory distress. 2. Continue ID recommendations agree with addition of colistin given persistent fevers and Acinetobacter. 3. GI recommendations regarding removal of tube feed in abdominal cavity continue drainage 4. Acute renal failure continue hemodialysis per nephrology. Patient would benefit from CRRT. 5. Surgery recommendations. 6. Continue vasopressors check lactic acid and cortisol level. Prognosis guarded 40 min cc time family conference scheduled for this afternoon. JULIETH PUENTE MD, [facility] Sep 15, 2018 12:05
--- NOTE | 2018-09-15 12:49 | CONS ---
Assessment/Plan Assessment/Plan Hospital Course (Demo Recall) Patient remains on pressors and continuously spiking fevers currently in hemodialysis with a temperature of 102.6 and T-max last night 103.1 WBC 18.8 H&H 7.7 and 29.5 platelets 277 neutrophils 63.3 BUN 68 creatinine 6.77 Repeat abdominal ultrasound this morning revealed limited study. No Sneha lithiasis or acute cholecystitis. Previously seen left upper quadrant fluid collection resolved. 8.7 x 2.8 cm residual fluid collection in the right lower quadrant with drain well-seated within the center of the collection Microbiology: Urine culture growing yeast, blood cultures since admission negative, drainage from G-tube site growing enterococcus species, susceptible to ampicillin and vancomycin. Abdominal fluid culture showed no growth Indwelling: Trach, NGT, right femoral Nikko, left upper extremity PICC line, abdominal pigtail catheter Physical examination: This is a morbidly obese well-developed middle-aged man who lethargic, in no distress. Head atraumatic normocephalic, neck is obese, tracheostomy present. Chest rise symmetrical breath sounds diminished. Heart: S1-S2, tachycardic. Abdomen obese, distended, patient has a large amount of drainage from G-tube site, bowel sounds hypoactive. Extremities with edema Assessment: 1. Septic shock with ongoing fevers likely secondary to intra-abdominal source. 2. Respiratory failure/healthcare associated pneumonia with sputum culture growing multidrug-resistant Acinetobacter and Proteus 3. Peritonitis with large intra-abdominal abscess secondary to dislodged G- tube, status post pigtail catheter insertion 09/11/18 5. Acute kidney failure, started on hemodialysis on this admission 7. Morbid obesity 8. Belinda UTI 9. Belinda esophagitis Plan: Patient remains unchanged and continues to spike fevers. Chest x-ray this morning revealed possible multifocal infection. He still has significant fluid collection per abdominal ultrasound. He may also have infected femoral line. We will discuss with renal team if Nikko can be discontinued and we will will send tip for culture. We will change Zosyn to Fortaz as Acinetobacter was intermittently sensitive to it and add colistin inhalation, change vancomycin to Zyvox, continue fluconazole. We will try to order CT of the abdomen given the fact that patient lost weight during this hospitalization to evaluate for possibility of intra-abdominal abscesses. Repeat cultures DW Dr Silvestre CABRERA RN Consultation Date/Type/Reason Admit Date/Time Aug 08, 2018 at 17:18 Initial Consult Date 08/09/18 Type of Consult ID Requesting Provider: TATI CARDOZA Date/Time of Note DATE: 09/15/18 TIME: 12:41 Exam/Review of Systems Exam Vitals Vital Signs Date Temp Pulse Resp B/P (MAP) Pulse Ox O2 O2 Flow FiO2 Time Delivery Rate 09/15/18 112 12:15 09/15/18 40 12:05 09/15/18 102.6 12:02 09/15/18 29 99 11:30 09/15/18 102/120 [place] 11:07 (114) l Ventilato r Trach Collar Intake and Output 09/14/18 09/14/18 09/15/18 1515:00 23:00 07:00 IntakeIntake Total 1109.57 ml 1051.99 ml 643.905 ml OutputOutput Total 0 ml 90 ml 210 ml BalanceBalance 1109.57 ml 961.99 ml 433.905 ml Results Result Diagram: 09/15/18 0410 09/15/18 0410 Results 24hrs Laboratory Tests Test 09/14/18 12:45 09/14/18 17:05 09/14/18 20:47 09/15/18 00:15 Bedside Glucose 105 97 119 112 Test 09/15/18 02:00 09/15/18 04:03 09/15/18 04:10 09/15/18 08:55 Blood Gas Blood arterial Specimen Source Arterial Blood 09/15/2018 2:20:15 Date Drawn AM Arterial Blood pH 7.330 L (Temp corrected) Arterial Blood 40.8 pCO2 (Temp correct) Arterial Blood 81.9 pO2 (Temp corrected) Arterial Blood 21.0 L HCO3 Arterial Blood -4.6 L Base Excess Arterial Blood 93.4 L Oxygen Saturation James Test ACCEPTAB Arterial Blood Right Radial Gas Puncture Site Arterial 0.3 Blood Carboxyhemo globin Arterial Blood 0.4 Methemoglobin Blood Gas A-a O2 156.4 H Differential Oxyhemoglobin 92.7 L Percent Blood Gas 37.0 Temperature Blood Gas 20.0 Respiration Rate Blood Gas Actual 28 Respiration Rate Blood Gas VENT - AC Modality FiO2 40.0 Blood Gas Tidal 550.0 Volume Blood Gas Low 5.0 PEEP Setting Blood Gas MA Notified Whom Blood Gas 09/15/2018 2:38:58 Notified Time AM Bedside Glucose 136 135 White Blood Count 18.8 H Red Blood Count 3.20 L Hemoglobin 7.7 L Hematocrit 29.5 L Mean Corpuscular 92.2 Volume Mean Corpuscular 24.1 L Hemoglobin Mean Corpuscular 26.1 L Hemoglobin Concen t Red Cell 22.4 H Distribution Width Platelet Count 277 Mean Platelet 10.4 Volume Immature 11.100 H Granulocytes % Neutrophils % 63.3 Segmented 35 L Neutrophils % (Manual) Band Neutrophils 18 H % (Manual) Lymphocytes % 17.5 Lymphocytes % 36 (Manual) Monocytes % 7.2 Monocytes % 4 (Manual) Eosinophils % 0.2 Eosinophils % 1 (Manual) Basophils % 0.7 Myelocytes % 3 H (Manual) Promyelocytes % 3 H (Manual) Nucleated Red 30 H Blood Cells % Immature 2.080 H Granulocytes # Neutrophils # 11.9 H Neutrophils # 7.2 (Manual) Band Neutrophils 3.3 H # Lymphocytes 6.7 H (Manual) Lymphocytes # 3.3 H Monocytes # 1.4 H Monocytes # 0.7 (Manual) Eosinophils # 0.0 Basophils # 0.1 Myelocytes # 0.5 H Promyelocytes # 0.5 H Nucleated Red 4.7 H Blood Cells # Platelet Estimate NORMAL Polychromasia 1+ Hypochromasia 2+ Poikilocytosis 2+ Anisocytosis 2+ Microcytosis 1+ Macrocytosis 1+ Target Cells 1+ Sodium Level 133 L Potassium Level 4.4 Chloride Level 94 L Carbon Dioxide 21 Level Anion Gap 18 H Blood Urea 68 H Nitrogen Creatinine 6.77 H Est Glomerular 9 L Filtrat Rate mL/min Glucose Level 119 Calcium Level 8.1 L Phosphorus Level 5.1 H Magnesium Level 2.1 Total Bilirubin 0.4 Direct Bilirubin 0.40 #H Indirect 0.0 Bilirubin Aspartate Amino 39 Transf (AST/SGOT) Alanine 44 Aminotransferase (ALT/SGPT) Alkaline 197 H Phosphatase Total Protein 5.4 L Albumin 2.2 L Globulin 3.20 Albumin/Globulin 0.68 Ratio Test 09/15/18 12:06 Bedside Glucose 101 Medications Medication Current Medications IV Flush (NS 3 ml) 3 ml PER PROTOCOL IV ; Start 08/08/18 at 17:30 Ondansetron HCl (Zofran Inj) 4 mg Q6H PRN IV NAUSEA; Start 08/08/18 at 17:30 Naphazoline HCl (Clear Eyes / Naphcon) 2 drop QID BOTH EYES Last administered on 09/15/18 08:52; Admin Dose 2 DROP; Start 08/16/18 at 18:14 Acetaminophen (Tylenol Liquid) 650 mg Q6H PRN NGT MILD PAIN(1-3)OR ELEVATED TEMP Last administered on 09/15/18 12:02; Admin Dose 650 MG; Start 08/17/18 at 00:57 Lorazepam (Ativan) 1 mg Q6H PRN IV AGITATION Last administered on 09/14/18 20:43; Admin Dose 1 MG; Start 08/28/18 at 02:30 Morphine Sulfate (morphine) 2 mg Q2H PRN IV SEVERE PAIN LEVEL 7-10 Last administered on 09/10/18 17:39; Admin Dose 2 MG; Start 08/28/18 at 09:00 Scopolamine (Transderm-Scop) 1 patch Q72H TRANSDERM Last administered on 09/15/18 12:02; Admin Dose 1 PATCH; Start 08/31/18 at 11:30 IV Flush (NS 10 ml) 10 ml PRN PRN IV IV PROTOCOL; Start 09/06/18 at 17:30 Albumin Human 100 ml @ 100 mls/hr DURING DIALYSIS PRN IV BLOOD PRESSURE SUPPORT Last administered on 09/07/18 18:04; Admin Dose 100 MLS/HR; Start 09/07/18 at 09:30 Albuterol (Ventolin Hfa) 4 puff Q6H RESP THERAPY INH Last administered on 09/15/18 08:22; Admin Dose 4 PUFF; Start 09/08/18 at 09:00 Ipratropium [place] (Atrovent Hfa) 4 puff Q6HWA RESP THERAPY INH Last administered on 09/15/18 08:22; Admin Dose 4 PUFF; Start 09/08/18 at 09:00 Heparin Sodium (Porcine) (Heparin (1000 Units/ml)) 3,100 unit PRN CATHETER Last administered on 09/13/18 12:36; Admin Dose 3,100 UNIT; Start 09/08/18 at 14:00 Polyethylene Glycol (Miralax) 17 gm DAILY PRN GTB CONSTIPATION; Start 09/10/18 at 09:30 Acetylcysteine (Mucomyst) 1 ml Q6H RESP THERAPY NEB Last administered on 09/15/18 08:22; Admin Dose 1 ML; Start 09/10/18 at 14:00 Phenylephrine HCl 80 mg/Dextrose 250 ml @ 18.75 mls/ hr TITRATE IV Last admini stered on 09/15/18 09:11; Admin Dose 56.25 MLS/HR; Start 09/11/18 at 12:00 Folic Acid (Folic Acid) 1 mg DAILY GTB Last administered on 09/15/18 08:51; Admin Dose 1 MG; Start 09/13/18 at 09:00 Zinc Sulfate (Zinc Sulfate) 220 mg DAILY GTB Last administered on 09/15/18 08:51; Admin Dose 220 MG; Start 09/13/18 at 09:00 Ascorbic Acid (Vitamin C) 250 mg DAILY GTB Last administered on 09/15/18 08:51; Admin Dose 250 MG; Start 09/13/18 at 09:00 Fluconazole/ Sodium Chloride 50 ml @ 50 mls/hr Q24H IVPB Last administered on 09/14/18 13:36; Admin Dose 50 MLS/HR; Start 09/12/18 at 14:00 Norepinephrine 32 mg/Dextrose 250 ml @ 0.47 mls/hr TITRATE IV Last administered on 09/14/18 01:34; Admin Dose 4.69 MLS/HR; Start 09/12/18 at 14:30 Vancomycin HCl (Vanco Iv Per Pharmacy) VANCOMYCIN PER PHARMACY PER PROTOCOL XX ; Start 09/12/18 at 13:30 Diagnostic Test (Pha) (Accu-Chek) 1 ea 02 XX ; Start 09/13/18 at 02:00 Miscellaneous Information 1 ea NOTE XX ; Start 09/12/18 at 21:30 Glucose (Glutose) 15 gm Q15M PRN PO DECREASED GLUCOSE; Start 09/12/18 at 21:30 Glucose (Glutose) 22.5 gm Q15M PRN PO DECREASED GLUCOSE; Start 09/12/18 at 21:30 Dextrose (D50w Syringe) 25 ml Q15M PRN IV DECREASED GLUCOSE Last administered on 09/13/18at 16:36; Admin Dose 25 ML; Start 09/12/18 at 21:30 Dextrose (D50w Syringe) 50 ml Q15M PRN IV DECREASED GLUCOSE; Start 09/12/18 at 21:30 Glucagon (Glucagen) 1 mg Q15M PRN IM DECREASED GLUCOSE; Start 09/12/18 at 21:30 Glucose (Glutose) 15 gm Q15M PRN BUCCAL DECREASED GLUCOSE; Start 09/12/18 at 21:30 Insulin Aspart (Novolog Insulin Pen) NOVOLOG *MILD* ALGORI... Q4H SC ; Start 09/13/18 at 00:00 Diagnostic Test (Pha) (Accu-Chek) 1 ea Q4 XX Last administered on 09/15/18at 09:21; Admin Dose 1 EA; Start 09/13/18 at 17:00 Total Parenteral Nutrition 1,000 ml @ 50 mls/hr Q20H IV Last administered on 09/14/18at 16:33; Admin Dose 50 MLS/HR; Start 09/14/18 at 16:00 Pantoprazole (Protonix Iv) 40 mg BID@06,18 IV Last administered on 09/15/18at 05:16; Admin Dose 40 MG; Start 09/14/18 at 18:00 Midazolam HCl 50 ml @ 1 mls/hr TITRATE IV Last administered on 09/15/18at 08:34; Admin Dose 1 MLS/HR; Start 09/15/18 at 08:00 Metoclopramide HCl (Reglan) 5 mg Q8 IV ; Start 09/15/18 at 14:00 Fentanyl 100 ml @ 2.5 mls/hr TITRATE IV ; Start 09/15/18 at 11:30 Meropenem/Sodium Chloride 50 ml @ 100 mls/hr Q12 IVPB ; Start 09/15/18 at 12:00 JOCELYN VILLALTA NP Sep 15, 2018 12:49
[2018-09-15] MEDS: TPN 1,000 ML IV SCH (12:57)
[2018-09-15] MEDS: FENTAnyl (DRIP) 1000 mcg/100mL 100 ML IV SCH (13:18)
[2018-09-15] MEDS: HEPARIN 1000 UNITS/ML 10 ML INJ CATHETER SCH (13:46)
--- NOTE | 2018-09-15 13:58 | RADRPT ---
Vent Rate: 72 bpm RR Interval: 0 msec ID Interval: 164 msec QRS Duration: 96 msec QT Interval: 378 msec QTC Interval: 413 msec P-R-T [place]: 55 - 134 - 65 degrees Normal sinus rhythm Right axis deviation Poor wave progression Abnormal ECG Decrease heart rate no other change from 08/08/18 EKG. Electronically Signed By: Camacho Ortiz
--- NOTE | 2018-09-15 14:06 | CONS ---
Assessment/Plan Assessment/Plan Hospital Course 32 yo morbidly obese male with multiple comorbidities who is admitted to the [facility] ICU for management of acute respiratory failure...now s/p trach He is noted to be protractedly encephalopathic, for which neurology is consulted. PNA+ MARTINE worsening Peritonitis Most clinically consistent with an acute and multifactorial toxic-metabolic encephalopathy. 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 Patient's body habitus is reportedly not amendable to neuroimaging P: [place] as able Hold seroquel while patient is obtunded; consider resuming low dose seroquel, prn...should he require in the future.. PT/OT/ST when able to participate Other medical management per primary Will follow clinically Consultation Date/Type/Reason Admit Date/Time Aug 08, 2018 at 17:18 Type of Consult Neurology Reason for Consultation encephalopathy Requesting Provider: TATI CARDOZA Date/Time of Note DATE: 09/15/18 TIME: 14:06 24 HR Interval Summary Free Text/Dictation Continues critical care. On multiple pressors. Family meeting planned for today. Subjective hx not possible: pt non-verbal, pt critical Exam Vital Signs Vitals Vital Signs Date Temp Pulse Resp B/P (MAP) Pulse Ox O2 O2 Flow FiO2 Time Delivery Rate 09/15/18 111 13:00 09/15/18 102.0 12:47 09/15/18 40 12:05 09/15/18 29 99 11:30 09/15/18 102/120 [place] 11:07 (114) l Ventilato r Trach Collar Intake and Output 09/14/18 09/14/18 09/15/18 1515:00 23:00 07:00 IntakeIntake Total 1109.57 ml 1051.99 ml 643.905 ml OutputOutput Total 0 ml 90 ml 210 ml BalanceBalance 1109.57 ml 961.99 ml 433.905 ml Exam PE: Gen Appearance: No Apparent Distress HEENT: Trach Cardiovascular: Tachycardic Abdomen: Obese Extremities: Dry NE: The patient was obtunded and nonverbal. Cranial nerve examination was limited by mental status. Pupils were equal and reactive to light. There was no afferent pupillary defect. Funduscopic examination was limited. Face was grossly symmetric, w/ present corneal and cough reflexes. Tone was normal. Muscle bulk was normal. I did not see fasciculations. The patient withdrew to noxious stimulation x 4. Coordination and gait testing was limited by mental status. Arm and leg reflexes were within normal limits and symmetric. Grimm's sign was absent. Plantar responses were flexor. ARSENIO MAXWELL NP Sep 15, 2018 14:06
[2018-09-15] MEDS: FLUCONAZOLE 100 MG/50 ML (PMX) 50 ML IVPB SCH (14:22)
--- NOTE | 2018-09-15 16:39 | PN ---
Date/Time of Note Date/Time of Note DATE: 09/15/18 TIME: 16:31 Assessment/Plan VTE Prophylaxis Risk score (from Ns)>0 risk: 7 SCD applied (from Ns): Yes Pharmacological prophylaxis: NA/contraindicated Pharm contraindication: bleeding Lines/Catheters IV Catheter Type (from Nrs): trialysis Urinary Cath still in place: No Assessment/Plan Assessment/Plan Assessment: Coffee-ground emesis EGD 09/11/18 Upper GI bleeding likely from esophageal ulceration Currently stable Candidal esophagitis noted No active bleeding or old blood noted today. Anemia Sepsis Accidental displacement of GT (Removed) Leukocytosis- trending down R/o abdominal wall cellulitis (not evident thus far) VDRF Encephalopathy Morbid obesity Contact isolation Plan: Change PPI to BID Continue NGT feeding with goal rate per dietary recommendations Monitor for overt signs of GI bleed Transfuse for hemoglobin less then 7.5 Local GT site care Replace GT once abdominal wall healed Patient seen in collaboration with Dr. Morrissey/Callum Subjective: Pt remains in ICU, second pressor was started due to hypertension. No upper GI bleeding overnight. Hemoglobin remains low 7.7. White blood count is trending up. NG tube feeding trial failed d/t aspiration. Patient is currently on TPN. Poor prognosis. With no further recommendations GI will sign off and will be available to re consult upon request. GENERAL: Morbidly Obese, s/p tracheostomy on MV, opens eyes, non-verbal HEENT: Supple. NG tube in place. CARDIAC EXAM: S1, S2. No murmurs. CHEST: Scattered crackles ABDOMEN: Soft, nontender. G-tube stoma to drainage bag with milky pinkish output. No guarding or rebound. drain to LQ EXTREMITIES: No cyanosis, clubbing, edema +2 Result Diagram: 09/15/18 0410 09/15/18409 Results 24hrs Laboratory Tests Test 09/14/18 17:05 09/14/18 20:47 09/15/18 00:15 09/15/18 02:00 Bedside Glucose 97 119 112 Blood Gas Blood arterial Specimen Source Arterial Blood 09/15/2018 2:20:15 Date Drawn AM Arterial Blood pH 7.330 L (Temp corrected) Arterial Blood 40.8 pCO2 (Temp correct) Arterial Blood 81.9 pO2 (Temp corrected) Arterial Blood 21.0 L HCO3 Arterial Blood -4.6 L Base Excess Arterial Blood 93.4 L Oxygen Saturation James Test ACCEPTAB Arterial Blood Right Radial Gas Puncture Site Arterial 0.3 Blood Carboxyhemo globin Arterial Blood 0.4 Methemoglobin Blood Gas A-a O2 156.4 H Differential Oxyhemoglobin 92.7 L Percent Blood Gas 37.0 Temperature Blood Gas 20.0 Respiration Rate Blood Gas Actual 28 Respiration Rate Blood Gas VENT - AC Modality FiO2 40.0 Blood Gas Tidal 550.0 Volume Blood Gas Low 5.0 PEEP Setting Blood Gas [place] Notified Whom Blood Gas 09/15/2018 2:38:58 Notified Time AM Test 09/15/18 04:03 09/15/18 04:10 09/15/18 08:55 09/15/18 12:06 Bedside Glucose 136 135 101 White Blood Count 18.8 H Red Blood Count 3.20 L Hemoglobin 7.7 L Hematocrit 29.5 L Mean Corpuscular 92.2 Volume Mean Corpuscular 24.1 L Hemoglobin Mean Corpuscular 26.1 L Hemoglobin Concen t Red Cell 22.4 H Distribution Width Platelet Count 277 Mean Platelet 10.4 Volume Immature 11.100 H Granulocytes % Neutrophils % 63.3 Segmented 35 L Neutrophils % (Manual) Band Neutrophils 18 H % (Manual) Lymphocytes % 17.5 Lymphocytes % 36 (Manual) Monocytes % 7.2 Monocytes % 4 (Manual) Eosinophils % 0.2 Eosinophils % 1 (Manual) Basophils % 0.7 Myelocytes % 3 H (Manual) Promyelocytes % 3 H (Manual) Nucleated Red 30 H Blood Cells % Immature 2.080 H Granulocytes # Neutrophils # 11.9 H Neutrophils # 7.2 (Manual) Band Neutrophils 3.3 H # Lymphocytes 6.7 H (Manual) Lymphocytes # 3.3 H Monocytes # 1.4 H Monocytes # 0.7 (Manual) Eosinophils # 0.0 Basophils # 0.1 Myelocytes # 0.5 H Promyelocytes # 0.5 H Nucleated Red 4.7 H Blood Cells # Platelet Estimate NORMAL Polychromasia 1+ Hypochromasia 2+ Poikilocytosis 2+ Anisocytosis 2+ Microcytosis 1+ Macrocytosis 1+ Target Cells 1+ Sodium Level 133 L Potassium Level 4.4 Chloride Level 94 L Carbon Dioxide 21 Level Anion Gap 18 H Blood Urea 68 H Nitrogen Creatinine 6.77 H Est Glomerular 9 L Filtrat Rate mL/min Glucose Level 119 Calcium Level 8.1 L Phosphorus Level 5.1 H Magnesium Level 2.1 Total Bilirubin 0.4 Direct Bilirubin 0.40 #H Indirect 0.0 Bilirubin Aspartate Amino 39 Transf (AST/SGOT) Alanine 44 Aminotransferase (ALT/SGPT) Alkaline 197 H Phosphatase Total Protein 5.4 L Albumin 2.2 L Globulin 3.20 Albumin/Globulin 0.68 Ratio Test 09/15/18 12:10 Lactic Acid Level 2.7 *H Ammonia 13 CC: SARAH MORRISSEY MD ; Exam/Review of Systems Exam Vitals Vital Signs Date Temp Pulse Resp B/P (MAP) Pulse Ox O2 O2 Flow FiO2 Time Delivery Rate 09/15/18 126 16:00 09/15/18 35 96 40 15:30 09/15/18 102.0 12:47 09/15/18 102/120 [place] 11:07 (114) l Ventilato r Trach Collar Intake and Output 09/14/18 09/14/18 09/15/18 1515:00 23:00 07:00 IntakeIntake Total 1109.57 ml 1051.99 ml 643.905 ml OutputOutput Total 0 ml 90 ml 210 ml BalanceBalance 1109.57 ml 961.99 ml 433.905 ml Results Results 24hrs Laboratory Tests Test 09/14/18 17:05 09/14/18 20:47 09/15/18 00:15 09/15/18 02:00 Bedside Glucose 97 119 112 Blood Gas Blood arterial Specimen Source Arterial Blood 09/15/2018 2:20:15 Date Drawn AM Arterial Blood pH 7.330 L (Temp corrected) Arterial Blood 40.8 pCO2 (Temp correct) Arterial Blood 81.9 pO2 (Temp corrected) Arterial Blood 21.0 L HCO3 Arterial Blood -4.6 L Base Excess Arterial Blood 93.4 L Oxygen Saturation James Test ACCEPTAB Arterial Blood Right Radial Gas Puncture Site Arterial 0.3 Blood Carboxyhemo globin Arterial Blood 0.4 Methemoglobin Blood Gas A-a O2 156.4 H Differential Oxyhemoglobin 92.7 L Percent Blood Gas 37.0 Temperature Blood Gas 20.0 Respiration Rate Blood Gas Actual 28 Respiration Rate Blood Gas VENT - AC Modality FiO2 40.0 Blood Gas Tidal 550.0 Volume Blood Gas Low 5.0 PEEP Setting Blood Gas [place] Notified Whom Blood Gas 09/15/2018 2:38:58 Notified Time AM Test 09/15/18 04:03 09/15/18 04:10 09/15/18 08:55 09/15/18 12:06 Bedside Glucose 136 135 101 White Blood Count 18.8 H Red Blood Count 3.20 L Hemoglobin 7.7 L Hematocrit 29.5 L Mean Corpuscular 92.2 Volume Mean Corpuscular 24.1 L Hemoglobin Mean Corpuscular 26.1 L Hemoglobin Concen t Red Cell 22.4 H Distribution Width Platelet Count 277 Mean Platelet 10.4 Volume Immature 11.100 H Granulocytes % Neutrophils % 63.3 Segmented 35 L Neutrophils % (Manual) Band Neutrophils 18 H % (Manual) Lymphocytes % 17.5 Lymphocytes % 36 (Manual) Monocytes % 7.2 Monocytes % 4 (Manual) Eosinophils % 0.2 Eosinophils % 1 (Manual) Basophils % 0.7 Myelocytes % 3 H (Manual) Promyelocytes % 3 H (Manual) Nucleated Red 30 H Blood Cells % Immature 2.080 H Granulocytes # Neutrophils # 11.9 H Neutrophils # 7.2 (Manual) Band Neutrophils 3.3 H # Lymphocytes 6.7 H (Manual) Lymphocytes # 3.3 H Monocytes # 1.4 H Monocytes # 0.7 (Manual) Eosinophils # 0.0 Basophils # 0.1 Myelocytes # 0.5 H Promyelocytes # 0.5 H Nucleated Red 4.7 H Blood Cells # Platelet Estimate NORMAL Polychromasia 1+ Hypochromasia 2+ Poikilocytosis 2+ Anisocytosis 2+ Microcytosis 1+ Macrocytosis 1+ Target Cells 1+ Sodium Level 133 L Potassium Level 4.4 Chloride Level 94 L Carbon Dioxide 21 Level Anion Gap 18 H Blood Urea 68 H Nitrogen Creatinine 6.77 H Est Glomerular 9 L Filtrat Rate mL/min Glucose Level 119 Calcium Level 8.1 L Phosphorus Level 5.1 H Magnesium Level 2.1 Total Bilirubin 0.4 Direct Bilirubin 0.40 #H Indirect 0.0 Bilirubin Aspartate Amino 39 Transf (AST/SGOT) Alanine 44 Aminotransferase (ALT/SGPT) Alkaline 197 H Phosphatase Total Protein 5.4 L Albumin 2.2 L Globulin 3.20 Albumin/Globulin 0.68 Ratio Test 09/15/18 12:10 Lactic Acid Level 2.7 *H Ammonia 13 Medications Medication Current Medications IV Flush (NS 3 ml) 3 ml PER PROTOCOL IV ; Start 08/08/18 at 17:30 Ondansetron HCl (Zofran Inj) 4 mg Q6H PRN IV NAUSEA; Start 08/08/18 at 17:30 Naphazoline HCl (Clear Eyes / Naphcon) 2 drop QID BOTH EYES Last administered on 09/15/18 13:19; Admin Dose 2 DROP; Start 08/16/18 at 18:14 Acetaminophen (Tylenol Liquid) 650 mg Q6H PRN NGT MILD PAIN(1-3)OR ELEVATED TEMP Last administered on 09/15/18 12:02; Admin Dose 650 MG; Start 08/17/18 at 00:57 Lorazepam (Ativan) 1 mg Q6H PRN IV AGITATION Last administered on 09/14/18 20:43; Admin Dose 1 MG; Start 08/28/18 at 02:30 Morphine Sulfate (morphine) 2 mg Q2H PRN IV SEVERE PAIN LEVEL 7-10 Last administered on 09/10/18 17:39; Admin Dose 2 MG; Start 08/28/18 at 09:00 Scopolamine (Transderm-Scop) 1 patch Q72H TRANSDERM Last administered on 09/15/18 12:02; Admin Dose 1 PATCH; Start 08/31/18 at 11:30 IV Flush (NS 10 ml) 10 ml PRN PRN IV IV PROTOCOL; Start 09/06/18 at 17:30 Albumin Human 100 ml @ 100 mls/hr DURING DIALYSIS PRN IV BLOOD PRESSURE SUPPORT Last administered on 09/07/18 18:04; Admin Dose 100 MLS/HR; Start 09/07/18 at 09:30 Albuterol (Ventolin Hfa) 4 puff Q6H RESP THERAPY INH Last administered on 09/15/18 13:59; Admin Dose 4 PUFF; Start 09/08/18 at 09:00 Ipratropium Beatty (Atrovent Hfa) 4 puff Q6HWA RESP THERAPY INH Last administered on 09/15/18 13:58; Admin Dose 4 PUFF; Start 09/08/18 at 09:00 Heparin Sodium (Porcine) (Heparin (1000 Units/ml)) 3,100 unit PRN CATHETER Last administered on 09/15/18 13:46; Admin Dose 3,100 UNIT; Start 09/08/18 at 14:00 Polyethylene Glycol (Miralax) 17 gm DAILY PRN GTB CONSTIPATION; Start 09/10/18 at 09:30 Acetylcysteine (Mucomyst) 1 ml Q6H RESP THERAPY NEB Last administered on 09/15/18at 13:59; Admin Dose 1 ML; Start 09/10/18 at 14:00 Phenylephrine HCl 80 mg/Dextrose 250 ml @ 18.75 mls/ hr TITRATE IV Last administered on 09/15/18 13:19; Admin Dose 56.25 MLS/HR; Start 09/11/18 at 12:00 Folic Acid (Folic Acid) 1 mg DAILY GTB Last administered on 09/15/18 08:51; Admin Dose 1 MG; Start 09/13/18 at 09:00 Zinc Sulfate (Zinc Sulfate) 220 mg DAILY GTB Last administered on 09/15/18 08:51; Admin Dose 220 MG; Start 09/13/18 at 09:00 Ascorbic Acid (Vitamin C) 250 mg DAILY GTB Last administered on 09/15/18 08:51; Admin Dose 250 MG; Start 09/13/18 at 09:00 Fluconazole/ Sodium Chloride 50 ml @ 50 mls/hr Q24H IVPB Last administered on 09/15/18at 14:22; Admin Dose 50 MLS/HR; Start 09/12/18 at 14:00 Norepinephrine 32 mg/Dextrose 250 ml @ 0.47 mls/hr TITRATE IV Last administered on 09/14/18at 01:34; Admin Dose 4.69 MLS/HR; Start 09/12/18 at 14:30 Diagnostic Test (Pha) (Accu-Chek) 1 ea 02 XX ; Start 09/13/18 at 02:00 Miscellaneous Information 1 ea NOTE XX ; Start 09/12/18 at 21:30 Glucose (Glutose) 15 gm Q15M PRN PO DECREASED GLUCOSE; Start 09/12/18 at 21:30 Glucose (Glutose) 22.5 gm Q15M PRN PO DECREASED GLUCOSE; Start 09/12/18 at 21:30 Dextrose (D50w Syringe) 25 ml Q15M PRN IV DECREASED GLUCOSE Last administered on 09/13/18at 16:36; Admin Dose 25 ML; Start 09/12/18 at 21:30 Dextrose (D50w Syringe) 50 ml Q15M PRN IV DECREASED GLUCOSE; Start 09/12/18 at 21:30 Glucagon (Glucagen) 1 mg Q15M PRN IM DECREASED GLUCOSE; Start 09/12/18 at 21:30 Glucose (Glutose) 15 gm Q15M PRN BUCCAL DECREASED GLUCOSE; Start 09/12/18 at 21:30 Insulin Aspart (Novolog Insulin Pen) NOVOLOG *MILD* ALGORI... Q4H SC ; Start 09/13/18 at 00:00 Diagnostic Test (Pha) (Accu-Chek) 1 ea Q4 XX Last administered on 09/15/18at 12:56; Admin Dose 1 EA; Start 09/13/18 at 17:00 Total Parenteral Nutrition 1,000 ml @ 50 mls/hr Q20H IV Last administered on 09/15/18at 12:57; Admin Dose 50 MLS/HR; Start 09/14/18 at 16:00; Stop 09/16/18 at 07:59 Pantoprazole (Protonix Iv) 40 mg BID@06,18 IV Last administered on 09/15/18at 05:16; Admin Dose 40 MG; Start 09/14/18 at 18:00 Midazolam HCl 50 ml @ 1 mls/hr TITRATE IV Last administered on 09/15/18at 08:34; Admin Dose 1 MLS/HR; Start 09/15/18 at 08:00 Metoclopramide HCl (Reglan) 5 mg Q8 IV Last administered on 09/15/18at 13:51; Admin Dose 5 MG; Start 09/15/18 at 14:00 Fentanyl 100 ml @ 2.5 mls/hr TITRATE IV Last administered on 09/15/18at 13:18; Admin Dose 2.5 MLS/HR; Start 09/15/18 at 11:30 Linezolid 300 ml @ 300 mls/hr Q12 IVPB ; Start 09/15/18 at 21:00 Ceftazidime 50 ml @ 100 mls/hr Q24H IVPB ; Start 09/15/18 at 15:00 Colistimethate Sodium (Colistin Inhal) 75 mg BID RESP THERAPY NEB ; Start 09/15/18 at 20:00 Total Parenteral Nutrition 1,000 ml @ 60 mls/hr [id number] IV ; Start 09/16/18 at 08:00 NELY MCCLELLAN NP Sep 15, 2018 16:39
[2018-09-15] MEDS: CEFTAZIDIME 1GM/50 ML (PMX) 50 ML IVPB SCH (16:41)
--- NOTE | 2018-09-15 17:04 | PN ---
Date/Time of Note Date/Time of Note DATE: 09/15/18 TIME: 16:59 Assessment/Plan Lines/Catheters IV Catheter Type (from Nrs): trialysis Santiago in Place (from Nrs): No Assessment/Plan Assessment/Plan Prognosis poor Multisystem organ failure requiring 2 pressors. Abdomen seems benign and ultrasound does not show any collection in the right upper quadrant. That has resolved. However there is a smaller collection in the right lower quadrant but this is draining serous fluid with good position of the catheter. Recommend CT if possible to see if there is residual abscess or fluid collection. Extremely high risk surgical candidate at this point. Would be better served with IR drainage if abscess is present Subjective 24 Hr Interval Summary Subjective hx not possible: pt critical status, other (intubated and sedated) Exam/Review of Systems Vital Signs Vitals Vital Signs Date Temp Pulse Resp B/P (MAP) Pulse Ox O2 O2 Flow FiO2 Time Delivery Rate 09/15/18 126 16:00 09/15/18 35 96 40 15:30 09/15/18 102.0 12:47 09/15/18 102/120 [employer] 11:07 (114) l Ventilato r Trach Collar Intake and Output 09/14/18 09/14/18 09/15/18 1515:00 23:00 07:00 IntakeIntake Total 1109.57 ml 1051.99 ml 643.905 ml OutputOutput Total 0 ml 90 ml 210 ml BalanceBalance 1109.57 ml 961.99 ml 433.905 ml Exam Constitutional: other (non-responsive) ENMT: nl external ears & nose, nl lips & teeth, nl nasal mucosa & septum, mucosa pink and moist Respiratory: diminished breath sounds Cardiovascular: other (tachycardic) Gastrointestinal: soft, non-tender, other (small amount of drainage from PEG site / Drainage catheter with serousdrainage) Results Free Text/Dictation MPLANTS: Depuy TC3 Femur: size TC 3 Femoral stem: Press-fit 75 x 14 mm Tibia: Size 2.5 revision rotating platform Tibial stem: Press-fit 75 x 16 mm Poly insert: size 3 TC3, 10 mm thickness Patella: 32 mm Result Diagram: 09/15/18 0410 09/15/18 0410 CHRIS BARCENAS MD Sep 15, 2018 17:04
[2018-09-15] MEDS ORDERED: COLISTIMETHATE (25 MG/ML INHAL SYG) NEB SCH (20:00)
[2018-09-15] MEDS: LINEZOLID 600 MG/D5W (PMX) 300 ML IVPB SCH (20:56)
[2018-09-16] VITALS (104 sets, daily range): BP systolic 31–130; BP diastolic 12–91; PULSE 111–142; RESP 17–36
[2018-09-16] MEDS: ACETYLCYSTEINE 20% 4 ML VIAL NEB SCH ×4 (01:20→20:00)
[2018-09-16] MEDS: ALBUTEROL HFA 8 GM INHALER INH SCH ×4 (01:20→20:00)
[2018-09-16] MEDS: ACCU-CHEK XX SCH ×7 (01:23→21:00)
[2018-09-16] MEDS: NORepinephrine 32 MG in DEXTROSE 5% 218 ML IV SCH (03:07)
[2018-09-16] MEDS: PHENYLephrine 80 MG in DEXTROSE 5% 242 ML IV SCH ×6 (03:19→23:57)
[2018-09-16] MEDS: MIDAZOLAM (DRIP) 50 mg/50 mL 50 ML IV SCH ×2 (03:22→15:18)
[2018-09-16] MEDS: INSULIN ASPART [NOVOLOG] 3 ML PEN SC SCH ×6 (04:00→23:48)
[2018-09-16] MEDS: LORAZEPAM 2 MG INJ IV PRN (04:40)
[2018-09-16] MEDS: PANTOPRAZOLE 40 MG INJ IV SCH ×2 (05:14→18:13)
[2018-09-16] MEDS: METOCLOPRAMIDE 10 MG INJ IV SCH ×2 (05:14→14:36)
[2018-09-16] MEDS: IPRATROPIUM (HFA) 12.9 GM INHALER INH SCH ×3 (08:00→20:00)
[2018-09-16] MEDS: TPN 1,000 ML IV SCH (08:17)
--- NOTE | 2018-09-16 09:22 | PN ---
Date/Time of Note Date/Time of Note DATE: 09/16/18 TIME: 09:22 Assessment/Plan Lines/Catheters IV Catheter Type (from Nrsg): Trialysis Santiago in Place (from Nrsg): No Assessment/Plan Assessment/Plan Status post tracheostomy Trach site clean No bleeding We will continue vent support Trach care Pulmonary toilet Subjective 24 Hr Interval Summary Constitutional: improved Pain Control: mild Exam/Review of Systems Vital Signs Vitals Vital Signs Date Temp Pulse Resp B/P (MAP) Pulse Ox O2 O2 Flow FiO2 Time Delivery Rate 09/16/18 131 22 89/34 (52) 91 07:45 09/16/18 Mechanica 07:00 l Ventilato r 09/16/18 40 05:34 09/16/18 102.7 04:00 Intake and Output 09/15/18 09/15/18 09/16/18 1515:00 23:00 07:00 IntakeIntake Total 662.69 ml 1304.745 ml 565.76 ml OutputOutput Total 2250 ml 440 ml BalanceBalance -1587.31 ml 1304.745 ml 125.76 ml Exam Eyes: nl conjunctiva, EOMI, nl lids, nl sclera ENMT: nl external ears & nose, nl lips & teeth, nl nasal mucosa & septum, mucosa pink and moist Neck: supple, non-tender Respiratory: clear to auscultation, normal air movement Cardiovascular: regular rate and rhythm, nl pulses Gastrointestinal: soft, nl liver, spleen, non-tender Musculoskeletal: nl extremities to inspection, nl gait and stance Results Result Diagram: 09/16/18 0405 09/16/18 0623 TIMMY DALAL MD Sep 16, 2018 09:22
--- NOTE | 2018-09-16 09:33 | CONS ---
Assessment/Plan Assessment/Plan Hospital Course (Demo Recall) ID PROGRESS NOTE CURRENT ABX: DAY # 40=> FORTAZ #2 + Zyvox #2 + Diflucan + Colistin INH #2 s/p TYGACIL # + Flagyl 09/04 Zyvox + Colistin Diflucan -> DC'd s/p Vanco IV/Zosyn 09/16/18 0405 09/16/18 0623 24H INTERVAL SUMMARY * Remains septic on pressors in ICU -- Tmax yesterday >103 + HR 130's == IMPROVED TODAY * ABX ADJUSTED YESTERDAY -- WBC w/marked improvement RECENT ICU EVENTS * Septic shock, low grade temps, WBC elevated 09/05/18 * MARTINE partially due to Colimycin for ACBA MDRO pulmonary sepsis = HD INITIATED w/PLAN renal recovery * NEW PICC Placed 09/06/18 * FC changed 09/06/18 . * 09/10/18 (+)GT dislodged w/LLQ & R-FLANK ABD wall abscess/fluid collection -- PEG REMOVED * s/p 09/11/18 Successful ultrasound guided right flank abdominal fluid collection drainage. 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 Limited study due to bowel gas, body habitus and limited mobility.2. Fatty change of the liver and hepatomegaly.3. No cholelithiasis or acute cholecystitis.4. Previously seen left upper quadrant left lower quadrant fluid collections have resolved.5. 8.7 x 2.8 cm residual fluid collection in the right lower quadrant with drain well seated within the c enter of the collection * 09/15/18 CXR: 1. Bibasilar opacities representing bibasilar atelectasis/airspace disease and small bilateral pleural effusions, increased on the right.2. Bilateral interstitial and patchy airspace opacities likely represent pulmonary edema or multifocal infection. This is not significantly changed. * 09/09/18 ABD XR BOWEL FOLLOW THRU: 1. No evidence of bowel obstruction. Transition time of the contrast reaching to the colon is less than 60 minutes. 2. No evidence of extravasation of the contrast from the stomach. * 09/06/18 CXR: IMPRESSION: * 1. Tracheostomy and PICC line in appropriate position. * 2. Similar bilateral perihilar interstitial opacities representing pulmonary edema or infection. * 3. Small left pleural effusion * 09/05/18 liver US: IMPRESSION:Diffuse fatty infiltration of an enlarged liver.Pancreas not well visualized. If characterization of this structure is needed repeat exam or CT/MRI is recommended. * 09/05/18 ABD XR: IMPRESSION: Findings of small bowel obstruction with a possible mass, fluid collection, or hematoma in the left abdomen. MICRO/OTHER * * 09/11/18 ABD Abscess Wound Cx (-) * 09/11/18 Urine Cx: URINE CULTURE Final Organism 1 EWELINA ALBICANS COLONY COUNT >100,000 CFU/ml * 09/11/18 BCx (-) * 09/09/18 ABD DRAIN CX: WOUND CULTURE Final Organism 1 ENTEROCOCCUS SPECIES QUANTITY RARE ENT SPS M.I.C. RX --------- --- AMPICILLIN <=2 S PENICILLIN-G 4 S VANCOMYCIN 1 S * 09/05/18 Urine Cx (-) * 09/05/18 BCx(-) * 08/30/18 BCx (-) * 08/29/18 PICC Tip (-) * 08/29/18 BCx (-) * 08/29/18 RESP CX: RESPIRATORY CULTURE Final Organism 1 ACINETOBACTER BAUMANNII QUANTITY 1+ A.BAUMANNI A.BAUMANNI M.I.C. RX M.I.C. RX --------- --- --------- --- AMIKACIN R CEFEPIME >=64 R CEFTAZIDIME 16 I CIPROFLOXACIN >=4 R GENTAMICIN >=16 R LEVOFLOXACIN >=8 R MEROPENEM >32 R TOBRAMYCIN >=16 R TRIMETHOPRIM/SULFAMETHOXAZOLE >=320 R PIPERACILLIN/TAZOBACTAM >=128 R * 08/26/18 (-)C.Diff * 08/26/18 BCX (+) Cons BLOOD CULTURE Final BCULT GRAM BOTTLE 1 Gram positive cocci in clusters 1 of 2 bottles . seen on gram stain of the broth Organism 1 COAGULASE NEGATIVE STAPH * 08/16/18 Respiratory Cx (+)ACBA = MDRO * 08/09/18 BRONCH (-) * 08/08/18 (-)MRSA, (-)Influenza A/B, (-)UTI * 08/08/18 BCx (-) * PHYSICAL EXAMINATION: GENERAL: Non-communicative, super morbid obese M, orally intubated, sedated on the Vent, looks comfortable, NAD HEENT: AT, NC, anicteric NECK: Supple, (+)Trach in place CHEST: Equal chest rise bilaterally, without dyspnea on observation = Vented HEART: Pulse RRR ABDOMEN: Soft / NT EXTREMITIES: Warm, dry SKIN: No rash, no diaphoresis, multiple Tattoos ID ASSESSMENT 32 yo Super Morbid Obese M admit with: 1. Sepsis w/Fevers - MULTIFACTORIAL ETIOLOGIES => NEW 09/05/18 XR ABD WALL ABSCESS + YEAST UTI * 09/11/18 Urine Cx: URINE CULTURE Final Organism 1 EWELINA ALBICANS COLONY COUNT >100,000 CFU/ml * 09/11/18 BCx (-) * HCAP superimposed on probable ASP PNA * S/P PICC Line Sepsis -- BCx (+) opportunistic CoNS -- PICC Line DC'd 08/29/18 2. ABD WALL ABSCESS (+)GT dislodged w/LLQ ABD wall abscess/fluid collection -- PEG REMOVED * s/p 09/11/18 Successful ultrasound guided right flank abdominal fluid collection drainage. 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 No evidence of bowel obstruction. Transition time of the contrast reaching to the colon is less than 60 minutes. 2. No evidence of extravasation of the contrast from the stomach. * 09/05/19 ABD XR revealed: Findings of small bowel obstruction with a pos sible mass, fluid collection, or hematoma in the left abdomen 2B. YEAST UTI 3. PNA -- ASP PNA risk factors * 08/09/18 BRONCH (-) * 08/29/18 RESP CX: RESPIRATORY CULTURE Final Organism 1 ACINETOBACTER BAUMANNII = MDRO 4. Acute hypoxic respiratory failure => s/p Trach placement 5. Obstructive Sleep Apnea/Obesity hypoventilation syndrome 6. MARTINE partially due to Colimycin for ACBA MDRO pulmonary sepsis = Colimycin DC'd 09/04/18 7. Fatty Liver w/hepatomegaly 8. Ileus vs SBO => Resolved 9. 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 Diarrhea = ABX associated w/(-)C.Diff toxin (-)MRSA Nares ABX ALLERGIES: KNDA INVASIVES: Trach, PEG, NEW PICC (09/06/18), FC changed 09/06/18 CURRENT ABX: DAY # 40=> FORTAZ #2 + Zyvox #2 + Diflucan + Colistin INH #2 s/p TYGACIL # + Flagyl 09/04 Zyvox + Colistin Diflucan -> DC'd s/p Vanco IV/Zosyn ID RECOMMENDATIONS/PLAN: 1. Continue current ABX 2. MARTINE W/HD initiated => PLAN IS FOR RENAL RECOVERY = AVOID NEPHROTOXIC ABX . Consultation Date/Type/Reason Admit Date/Time Aug 08, 2018 at 17:18 Initial Consult Date 08/09/18 Requesting Provider: TATI CARDOZA Date/Time of Note DATE: 09/16/18 TIME: 09:13 Exam/Review of Systems Exam Vitals Vital Signs Date Temp Pulse Resp B/P (MAP) Pulse Ox O2 O2 Flow FiO2 Time Delivery Rate 09/16/18 131 22 89/34 (52) 91 07:45 09/16/18 [place] 07:00 l Ventilato r 09/16/18 40 05:34 09/16/18 102.7 04:00 Intake and Output 09/15/18 09/15/18 09/16/18 1414:59 22:59 06:59 IntakeIntake Total 608.13 ml 1332.40 ml 575.735 ml OutputOutput Total 2250 ml 440 ml BalanceBalance -1641.87 ml 1332.40 ml 135.735 ml Results Result Diagram: 09/16/18 0405 09/16/18 0623 Results 24hrs Laboratory Tests Test 09/15/18 12:06 09/15/18 12:10 09/15/18 16:44 09/15/18 20:20 Bedside Glucose 101 107 108 Lactic Acid 2.7 *H Level Ammonia 13 Test 09/15/18 22:01 09/15/18 23:56 09/16/18 01:21 09/16/18 03:03 Bedside Glucose 144 115 118 119 Test 09/16/18 04:03 09/16/18 04:05 09/16/18 05:06 09/16/18 05:17 Bedside Glucose 117 114 White Blood 13.0 #H Count Red Blood Count 3.17 L Hemoglobin 7.7 L Hematocrit 29.7 L Mean Corpuscular 93.7 Volume Mean Corpuscular 24.3 L Hemoglobin Mean Corpuscular 25.9 L Hemoglobin Hannah nt Red Cell 21.2 H Distribution Width Platelet Count 208 # Mean Platelet 11.6 H Volume Immature 6.700 H Granulocytes % Neutrophils % 59.3 Lymphocytes % 26.1 Monocytes % 7.4 Eosinophils % 0.1 Basophils % 0.4 Nucleated Red 57.4 H Blood Cells % Immature 0.870 H Granulocytes # Neutrophils # 7.7 H Lymphocytes # 3.4 H Monocytes # 1.0 H Eosinophils # 0.0 Basophils # 0.1 Nucleated Red 7.5 H Blood Cells # Random Cortisol 47.0 Lab Scanned BLOOD TRANSFUSIO Report N Test 09/16/18 06:23 09/16/18 07:00 09/16/18 08:21 Sodium Level 133 L Potassium Level 4.2 Chloride Level 97 Carbon Dioxide 18 L Level Anion Gap 18 H Blood Urea 53 H Nitrogen Creatinine 5.48 H Est Glomerular 12 L Filtrat Rate mL/min Glucose Level 93 Calcium Level 8.6 Phosphorus Level 3.9 Magnesium Level 2.1 Blood Gas Blood arterial Specimen Source Arterial Blood 09/16/2018 8:30:53 Date Drawn AM Arterial Blood 7.211 *L pH (Temp corrected) Arterial Blood 40.2 pCO2 (Temp correct) Arterial Blood 65.5 L pO2 (Temp corrected) Arterial Blood 15.8 L HCO3 Arterial Blood -11.4 L Base Excess Arterial Blood 88.6 L Oxygen Saturatio n James Test ACCEPTAB Arterial Blood Right Radial Gas Puncture Site Arterial 0.3 Blood Carboxyhem oglobin Arterial Blood 0.3 Methemoglobin Blood Gas A-a O2 173.5 H Differential Oxyhemoglobin 88.1 L Percent Blood Gas 37.0 Temperature Blood Gas 20.0 Respiration Rate Blood Gas Actual 26 Respiration Rate Blood Gas VENT - AC Modality FiO2 40.0 Blood Gas Tidal 650.0 Volume Blood Gas Low 5.0 PEEP Setting Blood Gas Courtney FLORES RN Critical Value Read Back Blood Gas Stacy [employer] HEMATOLOGY Notified Whom Blood Gas 09/16/2018 9:03:41 Notified Time AM Bedside Glucose 97 Medications Medication Current Medications IV Flush (NS 3 ml) 3 ml PER PROTOCOL IV ; Start 08/08/18 at 17:30 Ondansetron HCl (Zofran Inj) 4 mg Q6H PRN IV NAUSEA; Start 08/08/18 at 17:30 Naphazoline HCl (Clear Eyes / Naphcon) 2 drop QID BOTH EYES Last administered on 09/15/18 20:56; Admin Dose 2 DROP; Start 08/16/18 at 18:14 Acetaminophen (Tylenol Liquid) 650 mg Q6H PRN NGT MILD PAIN(1-3)OR ELEVATED TEMP Last administered on 09/16/18 00:00; Admin Dose 650 MG; Start 08/17/18 at 00:57 Lorazepam (Ativan) 1 mg Q6H PRN IV AGITATION Last administered on 09/16/18 04:40; Admin Dose 1 MG; Start 08/28/18 at 02:30 Morphine Sulfate (morphine) 2 mg Q2H PRN IV SEVERE PAIN LEVEL 7-10 Last administered on 09/10/18 17:39; Admin Dose 2 MG; Start 08/28/18 at 09:00 Scopolamine (Transderm-Scop) 1 patch Q72H TRANSDERM Last administered on 09/15/18 12:02; Admin Dose 1 PATCH; Start 08/31/18 at 11:30 IV Flush (NS 10 ml) 10 ml PRN PRN IV IV PROTOCOL; Start 09/06/18 at 17:30 Albumin Human 100 ml @ 100 mls/hr DURING DIALYSIS PRN IV BLOOD PRESSURE SUPPORT Last administered on 09/07/18 18:04; Admin Dose 100 MLS/HR; Start 09/07/18 at 09:30 Albuterol (Ventolin Hfa) 4 puff Q6H RESP THERAPY INH Last administered on 09/16/18 01:20; Admin Dose 4 PUFF; Start 09/08/18 at 09:00 Ipratropium [place] (Atrovent Hfa) 4 puff Q6HWA RESP THERAPY INH Last administered on 09/15/18 20:34; Admin Dose 4 PUFF; Start 09/08/18 at 09:00 Heparin Sodium (Porcine) (Heparin (1000 Units/ml)) 3,100 unit PRN CATHETER Last administered on 09/15/18 13:46; Admin Dose 3,100 UNIT; Start 09/08/18 at 14:00 Polyethylene Glycol (Miralax) 17 gm DAILY PRN GTB CONSTIPATION; Start 09/10/18 at 09:30 Acetylcysteine (Mucomyst) 1 ml Q6H RESP THERAPY NEB Last administered on 09/16/18 01:20; Admin Dose 1 ML; Start 09/10/18 at 14:00 Phenylephrine HCl 80 mg/Dextrose 250 ml @ 18.75 mls/ hr TITRATE IV Last administered on 09/16/18 07:38; Admin Dose 56.25 MLS/HR; Start 09/11/18 at 12:00 Folic Acid (Folic Acid) 1 mg DAILY GTB Last administered on 09/15/18 08:51; Admin Dose 1 MG; Start 09/13/18 at 09:00 Zinc Sulfate (Zinc Sulfate) 220 mg DAILY GTB Last administered on 09/15/18 08:51; Admin Dose 220 MG; Start 09/13/18 at 09:00 Ascorbic Acid (Vitamin C) 250 mg DAILY GTB Last administered on 09/15/18 08:51; Admin Dose 250 MG; Start 09/13/18 at 09:00 Fluconazole/ Sodium Chloride 50 ml @ 50 mls/hr Q24H IVPB Last administered on 09/15/18 14:22; Admin Dose 50 MLS/HR; Start 09/12/18 at 14:00 Norepinephrine 32 mg/Dextrose 250 ml @ 0.47 mls/hr TITRATE IV Last administered on 09/16/18 03:07; Admin Dose 5.16 MLS/HR; Start 09/12/18 at 14:30 Diagnostic Test (Pha) (Accu-Chek) 1 ea 02 XX Last administered on 09/16/18 02:00; Admin Dose 1 EA; Start 09/13/18 at 02:00 Miscellaneous Information 1 ea NOTE XX ; Start 09/12/18 at 21:30 Glucose (Glutose) 15 gm Q15M PRN PO DECREASED GLUCOSE; Start 09/12/18 at 21:30 Glucose (Glutose) 22.5 gm Q15M PRN PO DECREASED GLUCOSE; Start 09/12/18 at 21:30 Dextrose (D50w Syringe) 25 ml Q15M PRN IV DECREASED GLUCOSE Last administered on 09/13/18at 16:36; Admin Dose 25 ML; Start 09/12/18 at 21:30 Dextrose (D50w Syringe) 50 ml Q15M PRN IV DECREASED GLUCOSE; Start 09/12/18 at 21:30 Glucagon (Glucagen) 1 mg Q15M PRN IM DECREASED GLUCOSE; Start 09/12/18 at 21:30 Glucose (Glutose) 15 gm Q15M PRN BUCCAL DECREASED GLUCOSE; Start 09/12/18 at 21:30 Insulin Aspart (Novolog Insulin Pen) NOVOLOG *MILD* ALGORI... Q4H SC ; Start 09/13/18 at 00:00 Diagnostic Test (Pha) (Accu-Chek) 1 ea Q4 XX Last administered on 09/16/18at 05:21; Admin Dose 1 EA; Start 09/13/18 at 17:00 Pantoprazole (Protonix Iv) 40 mg BID@06,18 IV Last administered on 09/16/18at 05:14; Admin Dose 40 MG; Start 09/14/18 at 18:00 Midazolam HCl 50 ml @ 1 mls/hr TITRATE IV Last administered on 09/16/18at 03:22; Admin Dose 5 MLS/HR; Start 09/15/18 at 08:00 Metoclopramide HCl (Reglan) 5 mg Q8 IV Last administered on 09/16/18at 05:14; Admin Dose 5 MG; Start 09/15/18 at 14:00 Fentanyl 100 ml @ 2.5 mls/hr TITRATE IV Last administered on 09/15/18at 13:18; Admin Dose 2.5 MLS/HR; Start 09/15/18 at 11:30 Linezolid 300 ml @ 300 mls/hr Q12 IVPB Last administered on 09/15/18at 20:56; Admin Dose 300 MLS/HR; Start 09/15/18 at 21:00 Ceftazidime 50 ml @ 100 mls/hr Q24H IVPB Last administered on 09/15/18at 16:41; Admin Dose 100 MLS/HR; Start 09/15/18 at 15:00 Total Parenteral Nutrition 1,000 ml @ 60 mls/hr [id number] IV Last administered on 09/16/18at 08:17; Admin Dose 60 MLS/HR; Start 09/16/18 at 08:00 Miscellaneous Information (*Order Clarification Bulletin) MEDICATION REQUIRES CLARIFICATI... Q8H XX ; Start 09/15/18 at 19:30; Stop 09/17/18 at 19:29 GARCÍA JOHNSON NP Sep 16, 2018 09:25
--- NOTE | 2018-09-16 09:43 | PN ---
Date/Time of Note Date/Time of Note DATE: 09/16/18 TIME: 09:15 Assessment/Plan VTE Prophylaxis Risk score (from Nsg)>0 risk: 7 SCD applied (from Nsg): Yes Pharmacological prophylaxis: other Lines/Catheters IV Catheter Type (from Nrsg): Trialysis Urinary Cath still in place: No Assessment/Plan Hospital Course S: Pt still on pressor support x 2 now, TPN. Still with significant fevers, white blood cell count lower today. Family meeting held yesterday as well. Received PRBC transfusion x1 yesterday. Received dialysis yesterday. O: VS - see below PE: Gen: Morbidly obese man lying in bed, still lethargic Neck: Obese, trach, no lymphadenopathy appreciated HEENT: Clear oropharynx, moist mucous membranes Card: Sinus tach, distant heart sounds Pulm: some distant lung sounds. Abd: Morbidly obese, soft, nontender Ext: Bilateral LE chronic venous stasis changes. Neuro: No focal deficits Abdominal ultrasound - September 15, 2018: IMPRESSION: 1. Limited study due to bowel gas, body habitus and limited mobility. 2. Fatty change of the liver and hepatomegaly. 3. No cholelithiasis or acute cholecystitis. 4. Previously seen left upper quadrant left lower quadrant fluid collections have resolved. 5. 8.7 x 2.8 cm residual fluid collection in the right lower quadrant with lalitha nunez well seated within the center of the collection Assessment/Plan: 32yo Morbidly obese man who had presented with shortness of breath currently managed as follows: #. Hypoxic/hypercapnic respiratory failure-Secondary to ANDREW, exacerbated by pneumonia, underlying COPD -Intubated , status post trach 08/24 -still with secretions requiring frequent suctioning and copious secretions-steroids added 09/05/18-back on vent 09/07/18. Steroids have been off now for the last few days. Still with fevers, leukocytosis improved since yesterday but still present. -Continue mechanical ventilation per pulmonary recommendations via trach, Mucomyst, duo nebs as needed, current broad-spectrum antibiotics -Scopolamine for secretions, -Given signs of worsening acidosis, lmetabolic, will give 2 Amp of bicarb now, also will try to go up on the vent settings specifically the oxygenation FiO2 today, follow pulmonary recommendations #. Sepsis/shock-still on pressor support x 2, still with fevers, tachycardia. Respiratory cultures grew Proteus and MDR Acinetobacter. Urine culture positive for Belinda. Patient also with positive Belinda esophagitis, as well as wound culture positive for enterococcus. Again patient had drainage of the abdominal fluid collection 5 days ago, potential source as well. White blood cell count today 13 range, slightly improved since yesterday. - continue current antibiotics:follow-up ID recommendations - Monitor drainage from LUPE drain in the intra-abdominal area, follow-up ID and surgery recommendations. -Repeat abdominal ultrasound results performed yesterday reviewed, monitor for now, continue drainage -When patient more medically stable, will attempt to do CT scan of abdomen and pelvis without contrast to look for abscess- as apparently now patient's weight now barely qualifies him to be able to have this performed (however patient presently still too medically unstable to have this performed now, discussed with ID team yesterday). # Encephalopathy, toxic metabolic- r/o hypoxic ischemic-patient remains confused intermittently, likely secondary to multiple infections and septic shock going on, also may have suffered a brain insult, but unable to get MRI head 2/ weight - appreciate neurology consult -earlier patient was on Seroquel, patient is still quite confused, this has been weaned off now -Monitor, follow-up neurology recommendations # renal insufficiency now started on hemodialysis -1st session 09/07/18, -Continue HD per renal recs #. Dislodged G tube with iatrogenic fluid pocket of extravasated tube feed-again status post IR drainage of large pocket of tube feed -abdominal fluid collection noted-Again status post US-guided drainage 5 days ago, monitor drainage, also status post EGD 4 days ago with candidiasis found in the esophagus, along with esophageal ulceration but no active bleeding noted. However afterwards patient did have some upper GI bleeding noted from the NG tube. Hemoglobin today still 7.7 despite PRBC transfusion given yesterday. - follow-up post procedure recommendations, drainage from the abdominal site, culture results, continue antibiotics -Continue to hold NG tube feeds for now at lower rate, continue TPN now -Continue fluconazole IV for esophageal candidiasis, follow up GI recommendations, also on PPI IV twice daily now -We will repeat H&H today #. Chronic hypochromic anemia -again status post PRBC transfusion yesterday, hemoglobin still 7.7 today -stable, monitor -Again as mentioned above we will repeat H&H today #. Severe Obesity-high risk for skin breakdown-appears controlled calories while on tube feeds-apparently patient has lost ~ 40 pounds so far since admission per nursing, but much of this could be diuresis? -Continue to monitor for now, counseled on weight loss -We will try to accurately recheck patient's weight, based on yesterday's measurements patient apparently appears to be barely under 400 pounds now? - Again we will recheck #. Debility and lethargy -PT limited by patient's mental status #. Tachycardia -related to fevers-sepsis/shock -on David-Synephrine and levofed for the last few days -Monitor, continue IV fluids, try to wean off pressor support as tolerated Dispo: Given Actinobacter multidrug-resistant respiratory infection, along with other infections still on pressor support, needs for dialysis, trach, NG tube feeds, abdominal fluid collection status post IR guided drainage, overall poor prognosis. Family meeting held yesterday with patient's family as well, updates given. Critical care time spent in patient care today equals 40 minutes. Result Diagram: 09/16/18 0405 09/16/18 0623 Results 24hrs Laboratory Tests Test 09/15/18 12:06 09/15/18 12:10 09/15/18 16:44 09/15/18 20:20 Bedside Glucose 101 107 108 Lactic Acid 2.7 *H Level Ammonia 13 Test 09/15/18 22:01 09/15/18 23:56 09/16/18 01:21 09/16/18 03:03 Bedside Glucose 144 115 118 119 Test 09/16/18 04:03 09/16/18 04:05 09/16/18 05:06 09/16/18 05:17 Bedside Glucose 117 114 White Blood 13.0 #H Count Red Blood Count 3.17 L Hemoglobin 7.7 L Hematocrit 29.7 L Mean Corpuscular 93.7 Volume Mean Corpuscular 24.3 L Hemoglobin Mean Corpuscular 25.9 L Hemoglobin Hannah nt Red Cell 21.2 H Distribution Width Platelet Count 208 # Mean Platelet 11.6 H Volume Immature 6.700 H Granulocytes % Neutrophils % 59.3 Lymphocytes % 26.1 Monocytes % 7.4 Eosinophils % 0.1 Basophils % 0.4 Nucleated Red 57.4 H Blood Cells % Immature 0.870 H Granulocytes # Neutrophils # 7.7 H Lymphocytes # 3.4 H Monocytes # 1.0 H Eosinophils # 0.0 Basophils # 0.1 Nucleated Red 7.5 H Blood Cells # Random Cortisol 47.0 Lab Scanned BLOOD TRANSFUSIO Report N Test 09/16/18 06:23 09/16/18 07:00 09/16/18 08:21 Sodium Level 133 L Potassium Level 4.2 Chloride Level 97 Carbon Dioxide 18 L Level Anion Gap 18 H Blood Urea 53 H Nitrogen Creatinine 5.48 H Est Glomerular 12 L Filtrat Rate mL/min Glucose Level 93 Calcium Level 8.6 Phosphorus Level 3.9 Magnesium Level 2.1 Blood Gas Blood arterial Specimen Source Arterial Blood 09/16/2018 8:30:53 Date Drawn AM Arterial Blood 7.211 *L pH (Temp corrected) Arterial Blood 40.2 pCO2 (Temp correct) Arterial Blood 65.5 L pO2 (Temp corrected) Arterial Blood 15.8 L HCO3 Arterial Blood -11.4 L Base Excess Arterial Blood 88.6 L Oxygen Saturatio n James Test ACCEPTAB Arterial Blood Right Radial Gas Puncture Site Arterial 0.3 Blood Carboxyhem oglobin Arterial Blood 0.3 Methemoglobin Blood Gas A-a O2 173.5 H Differential Oxyhemoglobin 88.1 L Percent Blood Gas 37.0 Temperature Blood Gas 20.0 Respiration Rate Blood Gas Actual 26 Respiration Rate Blood Gas VENT - AC Modality FiO2 40.0 Blood Gas Tidal 650.0 Volume Blood Gas Low 5.0 PEEP Setting Blood Gas Courtney FLORES RN Critical Value Read Back Blood Gas Stacy [facility] Notified Whom Blood Gas 09/16/2018 9:03:41 Notified Time AM Bedside Glucose 97 Exam/Review of Systems Exam Vitals Vital Signs Date Temp Pulse Resp B/P (MAP) Pulse Ox O2 O2 Flow FiO2 Time Delivery Rate 09/16/18 131 22 89/34 (52) 91 07:45 09/16/18 [place] 07:00 l Ventilato r 09/16/18 40 05:34 09/16/18 102.7 04:00 Intake and Output 09/15/18 09/15/18 09/16/18 1515:00 23:00 07:00 IntakeIntake Total 662.69 ml 1304.745 ml 565.76 ml OutputOutput Total 2250 ml 440 ml BalanceBalance -1587.31 ml 1304.745 ml 125.76 ml Results Results 24hrs Laboratory Tests Test 09/15/18 12:06 09/15/18 12:10 09/15/18 16:44 09/15/18 20:20 Bedside Glucose 101 107 108 Lactic Acid 2.7 *H Level Ammonia 13 Test 09/15/18 22:01 09/15/18 23:56 09/16/18 01:21 09/16/18 03:03 Bedside Glucose 144 115 118 119 Test 09/16/18 04:03 09/16/18 04:05 09/16/18 05:06 09/16/18 05:17 Bedside Glucose 117 114 White Blood 13.0 #H Count Red Blood Count 3.17 L Hemoglobin 7.7 L Hematocrit 29.7 L Mean Corpuscular 93.7 Volume Mean Corpuscular 24.3 L Hemoglobin Mean Corpuscular 25.9 L Hemoglobin Hannah nt Red Cell 21.2 H Distribution Width Platelet Count 208 # Mean Platelet 11.6 H Volume Immature 6.700 H Granulocytes % Neutrophils % 59.3 Lymphocytes % 26.1 Monocytes % 7.4 Eosinophils % 0.1 Basophils % 0.4 Nucleated Red 57.4 H Blood Cells % Immature 0.870 H Granulocytes # Neutrophils # 7.7 H Lymphocytes # 3.4 H Monocytes # 1.0 H Eosinophils # 0.0 Basophils # 0.1 Nucleated Red 7.5 H Blood Cells # Random Cortisol 47.0 Lab Scanned BLOOD TRANSFUSIO Report N Test 09/16/18 06:23 09/16/18 07:00 09/16/18 08:21 Sodium Level 133 L Potassium Level 4.2 Chloride Level 97 Carbon Dioxide 18 L Level Anion Gap 18 H Blood Urea 53 H Nitrogen Creatinine 5.48 H Est Glomerular 12 L Filtrat Rate mL/min Glucose Level 93 Calcium Level 8.6 Phosphorus Level 3.9 Magnesium Level 2.1 Blood Gas Blood arterial Specimen Source Arterial Blood 09/16/2018 8:30:53 Date Drawn AM Arterial Blood 7.211 *L pH (Temp corrected) Arterial Blood 40.2 pCO2 (Temp correct) Arterial Blood 65.5 L pO2 (Temp corrected) Arterial Blood 15.8 L HCO3 Arterial Blood -11.4 L Base Excess Arterial Blood 88.6 L Oxygen Saturatio n James Test ACCEPTAB Arterial Blood Right Radial Gas Puncture Site Arterial 0.3 Blood Carboxyhem oglobin Arterial Blood 0.3 Methemoglobin Blood Gas A-a O2 173.5 H Differential Oxyhemoglobin 88.1 L Percent Blood Gas 37.0 Temperature Blood Gas 20.0 Respiration Rate Blood Gas Actual 26 Respiration Rate Blood Gas VENT - AC Modality FiO2 40.0 Blood Gas Tidal 650.0 Volume Blood Gas Low 5.0 PEEP Setting Blood Gas Courtney FLORES RN Critical Value Read Back Blood Gas Stacy [facility] [employer] Notified Whom Blood Gas 09/16/2018 9:03:41 Notified Time AM Bedside Glucose 97 Medications Medication Current Medications IV Flush (NS 3 ml) 3 ml PER PROTOCOL IV ; Start 08/08/18 at 17:30 Ondansetron HCl (Zofran Inj) 4 mg Q6H PRN IV NAUSEA; Start 08/08/18 at 17:30 Naphazoline HCl (Clear Eyes / Naphcon) 2 drop QID BOTH EYES Last administered on 09/15/18at 20:56; Admin Dose 2 DROP; Start 08/16/18 at 18:14 Acetaminophen (Tylenol Liquid) 650 mg Q6H PRN NGT MILD PAIN(1-3)OR ELEVATED TEMP Last administered on 09/16/18at 00:00; Admin Dose 650 MG; Start 08/17/18 at 00:57 Lorazepam (Ativan) 1 mg Q6H PRN IV AGITATION Last administered on 09/16/18 04:40; Admin Dose 1 MG; Start 08/28/18 at 02:30 Morphine Sulfate (morphine) 2 mg Q2H PRN IV SEVERE PAIN LEVEL 7-10 Last administered on 09/10/18at 17:39; Admin Dose 2 MG; Start 08/28/18 at 09:00 Scopolamine (Transderm-Scop) 1 patch Q72H TRANSDERM Last administered on 09/15/18at 12:02; Admin Dose 1 PATCH; Start 08/31/18 at 11:30 IV Flush (NS 10 ml) 10 ml PRN PRN IV IV PROTOCOL; Start 09/06/18 at 17:30 Albumin Human 100 ml @ 100 mls/hr DURING DIALYSIS PRN IV BLOOD PRESSURE SUPPORT Last administered on 09/07/18at 18:04; Admin Dose 100 MLS/HR; Start 09/07/18 at 09:30 Albuterol (Ventolin Hfa) 4 puff Q6H RESP THERAPY INH Last administered on 09/16/18 01:20; Admin Dose 4 PUFF; Start 09/08/18 at 09:00 Ipratropium [place] (Atrovent Hfa) 4 puff Q6HWA RESP THERAPY INH Last administered on 09/15/18 20:34; Admin Dose 4 PUFF; Start 09/08/18 at 09:00 Heparin Sodium (Porcine) (Heparin (1000 Units/ml)) 3,100 unit PRN CATHETER Last administered on 09/15/18 13:46; Admin Dose 3,100 UNIT; Start 09/08/18 at 14:00 Polyethylene Glycol (Miralax) 17 gm DAILY PRN GTB CONSTIPATION; Start 09/10/18 at 09:30 Acetylcysteine (Mucomyst) 1 ml Q6H RESP THERAPY NEB Last administered on 09/16/18 01:20; Admin Dose 1 ML; Start 09/10/18 at 14:00 Phenylephrine HCl 80 mg/Dextrose 250 ml @ 18.75 mls/ hr TITRATE IV Last administered on 09/16/18 07:38; Admin Dose 56.25 MLS/HR; Start 09/11/18 at 12:00 Folic Acid (Folic Acid) 1 mg DAILY GTB Last administered on 09/15/18 08:51; Admin Dose 1 MG; Start 09/13/18 at 09:00 Zinc Sulfate (Zinc Sulfate) 220 mg DAILY GTB Last administered on 09/15/18 08:51; Admin Dose 220 MG; Start 09/13/18 at 09:00 Ascorbic Acid (Vitamin C) 250 mg DAILY GTB Last administered on 09/15/18 08:51; Admin Dose 250 MG; Start 09/13/18 at 09:00 Fluconazole/ Sodium Chloride 50 ml @ 50 mls/hr Q24H IVPB Last administered on 09/15/18 14:22; Admin Dose 50 MLS/HR; Start 09/12/18 at 14:00 Norepinephrine 32 mg/Dextrose 250 ml @ 0.47 mls/hr TITRATE IV Last administered on 09/16/18 03:07; Admin Dose 5.16 MLS/HR; Start 09/12/18 at 14:30 Diagnostic Test (Pha) (Accu-Chek) 1 ea 02 XX Last administered on 3/2/19at 02:00; Admin Dose 1 EA; Start 09/13/18 at 02:00 Miscellaneous Information 1 ea NOTE XX ; Start 09/12/18 at 21:30 Glucose (Glutose) 15 gm Q15M PRN PO DECREASED GLUCOSE; Start 09/12/18 at 21:30 Glucose (Glutose) 22.5 gm Q15M PRN PO DECREASED GLUCOSE; Start 09/12/18 at 21:30 Dextrose (D50w Syringe) 25 ml Q15M PRN IV DECREASED GLUCOSE Last administered on 09/13/18at 16:36; Admin Dose 25 ML; Start 09/12/18 at 21:30 Dextrose (D50w Syringe) 50 ml Q15M PRN IV DECREASED GLUCOSE; Start 09/12/18 at 21:30 Glucagon (Glucagen) 1 mg Q15M PRN IM DECREASED GLUCOSE; Start 09/12/18 at 21:30 Glucose (Glutose) 15 gm Q15M PRN BUCCAL DECREASED GLUCOSE; Start 09/12/18 at 21:30 Insulin Aspart (Novolog Insulin Pen) NOVOLOG *MILD* ALGORI... Q4H SC ; Start 09/13/18 at 00:00 Diagnostic Test (Pha) (Accu-Chek) 1 ea Q4 XX Last administered on 09/16/18at 05:21; Admin Dose 1 EA; Start 09/13/18 at 17:00 Pantoprazole (Protonix Iv) 40 mg BID@06,18 IV Last administered on 09/16/18at 05:14; Admin Dose 40 MG; Start 09/14/18 at 18:00 Midazolam HCl 50 ml @ 1 mls/hr TITRATE IV Last administered on 09/16/18at 03:22; Admin Dose 5 MLS/HR; Start 09/15/18 at 08:00 Metoclopramide HCl (Reglan) 5 mg Q8 IV Last administered on 09/16/18at 05:14; Admin Dose 5 MG; Start 09/15/18 at 14:00 Fentanyl 100 ml @ 2.5 mls/hr TITRATE IV Last administered on 09/15/18at 13:18; Admin Dose 2.5 MLS/HR; Start 09/15/18 at 11:30 Linezolid 300 ml @ 300 mls/hr Q12 IVPB Last administered on 09/15/18at 20:56; Admin Dose 300 MLS/HR; Start 09/15/18 at 21:00 Ceftazidime 50 ml @ 100 mls/hr Q24H IVPB Last administered on 09/15/18at 16:41; Admin Dose 100 MLS/HR; Start 09/15/18 at 15:00 Total Parenteral Nutrition 1,000 ml @ 60 mls/hr [id number] IV Last administered on 09/16/18at 08:17; Admin Dose 60 MLS/HR; Start 09/16/18 at 08:00 Miscellaneous Information (*Order Clarification Bulletin) MEDICATION REQUIRES CLARIFICATI... Q8H XX ; Start 09/15/18 at 19:30; Stop 09/17/18 at 19:29 RC GO Sep 16, 2018 09:28
[2018-09-16] MEDS ORDERED: NA BICARBONATE 8.4% 50 ML SYG IV ONE ×2 (10:00)
[2018-09-16] MEDS: FENTAnyl (DRIP) 1000 mcg/100mL 100 ML IV SCH (10:02)
[2018-09-16] MEDS: NAPHAZOLINE 0.012% 15 ML OPH BOTH EYES SCH ×4 (10:02→21:41)
[2018-09-16] MEDS: ZINC SULFATE 220 MG CAP GTB SCH (10:05)
[2018-09-16] MEDS: LINEZOLID 600 MG/D5W (PMX) 300 ML IVPB SCH ×2 (10:05→21:40)
[2018-09-16] MEDS: FOLIC ACID 1 MG TAB GTB SCH (10:05)
[2018-09-16] MEDS: ASCORBIC ACID 250 MG TAB GTB SCH (10:05)
[2018-09-16] MEDS: BALSAM PERU/CASTOR OIL 60 GM TUBE TOP SCH ×2 (10:06→21:00)
--- NOTE | 2018-09-16 10:18 | CONS ---
Assessment/Plan Assessment/Plan Hospital Course 32 yo morbidly obese male with multiple comorbidities who is admitted to the [facility] ICU for management of acute respiratory failure...now s/p trach He is noted to be protractedly encephalopathic, for which neurology is consulted. PNA+ MARTINE worsening Peritonitis Most clinically consistent with an acute and multifactorial toxic-metabolic encephalopathy. A focal REAL ESTATE ECONOMIST process is less likely. Patient's body habitus is reportedly not amendable to neuroimaging. P: [place] as able Hold seroquel while patient is obtunded; consider resuming low dose seroquel, prn...should he require in the future.. PT/OT/ST when able to participate Other medical management per primary Will follow clinically Consultation Date/Type/Reason Admit Date/Time Aug 08, 2018 at 17:18 Type of Consult Neurology Reason for Consultation encephalopathy Requesting Provider: TATI CARDOZA Date/Time of Note DATE: 09/16/18 TIME: 10:18 24 HR Interval Summary Free Text/Dictation Continues critical care. Remains on multiple pressors/sedating medications. S/p family conference yesterday; family reportedly states that they still want everything done. Subjective hx not possible: pt non-verbal, pt critical Exam Vital Signs Vitals Vital Signs Date Temp Pulse Resp B/P (MAP) Pulse Ox O2 O2 Flow FiO2 Time Delivery Rate 09/16/18 131 22 89/34 (52) 91 07:45 09/16/18 [place] 07:00 l Ventilato r 09/16/18 40 05:34 09/16/18 102.7 04:00 Intake and Output 09/15/18 09/15/18 09/16/18 1515:00 23:00 07:00 IntakeIntake Total 662.69 ml 1304.745 ml 565.76 ml OutputOutput Total 2250 ml 440 ml BalanceBalance -1587.31 ml 1304.745 ml 125.76 ml Exam PE: Gen Appearance: No Apparent Distress HEENT: Trach Cardiovascular: Tachycardic; HR 130s Abdomen: Obese Extremities: Dry NE: The patient was comatose and nonverbal. Cranial nerve examination was limited by mental status. Pupils were equal and reactive to light. There was no afferent pupillary defect. Funduscopic examination was limited. Face was grossly symmetric, w/ present corneal and cough reflexes. Tone was normal. Muscle bulk was normal. I did not see fasciculations. The patient did not withdraw to noxious stimulation. Coordination and gait testing was limited by mental status. Arm and leg reflexes were within normal limits and symmetric. Grimm's sign was absent. Plantar responses were mute. ARSENIO MAXWELL NP Sep 16, 2018 10:18 RAYMOND HERNANDEZ Sep 16, 2018 11:47
[2018-09-16] MEDS: ACETAMINOPHEN 650MG/20.3ML CUP NGT PRN ×3 (10:20→18:43)
--- NOTE | 2018-09-16 11:32 | CONS ---
Consult Date/Type/Reason Admit Date/Time Aug 08, 2018 at 17:18 Initial Consult Date 08/22/18 Type of Consultation: Pulm/CCM Requesting Provider: TATI CARDOZA Date/Time of Note DATE: 09/16/18 TIME: 11:29 Subjective No events. Sedated on the vent. On 2 pressors. Objective Vitals Vital Signs Date Temp Pulse Resp B/P (MAP) Pulse Ox O2 O2 Flow FiO2 Time Delivery Rate 09/16/18 130 26 105/39 93 10:45 (61) 09/16/18 102.6 10:20 09/16/18 [place] 10:00 l Ventilato r 09/16/18 40 05:34 Intake and Output 09/15/18 09/15/18 09/16/18 1515:00 23:00 07:00 IntakeIntake Total 662.69 ml 1304.745 ml 565.76 ml OutputOutput Total 2250 ml 440 ml BalanceBalance -1587.31 ml 1304.745 ml 125.76 ml Exam HEENT: Neck supple; no JVD; no LAD; + trach CVS: Tachy, S1 and S2 CHEST: Distant BS ABD: Obese, distended, + BS EXT: ++ edema NEURO: sedated on the vent Results/Medications Result Diagram: 09/16/18 0955 09/16/18 0623 Results 24 hrs Laboratory Tests Test 09/15/18 12:06 09/15/18 12:10 09/15/18 16:44 09/15/18 20:20 Bedside Glucose 101 107 108 Lactic Acid 2.7 *H Level Ammonia 13 Test 09/15/18 22:01 09/15/18 23:56 09/16/18 01:21 09/16/18 03:03 Bedside Glucose 144 115 118 119 Test 09/16/18 04:03 09/16/18 04:05 09/16/18 05:06 09/16/18 05:17 Bedside Glucose 117 114 White Blood 13.0 #H Count Red Blood Count 3.17 L Hemoglobin 7.7 L Hematocrit 29.7 L Mean Corpuscular 93.7 Volume Mean Corpuscular 24.3 L Hemoglobin Mean Corpuscular 25.9 L Hemoglobin Hannah nt Red Cell 21.2 H Distribution Width Platelet Count 208 # Mean Platelet 11.6 H Volume Immature 6.700 H Granulocytes % Neutrophils % 59.3 Lymphocytes % 26.1 Monocytes % 7.4 Eosinophils % 0.1 Basophils % 0.4 Nucleated Red 57.4 H Blood Cells % Immature 0.870 H Granulocytes # Neutrophils # 7.7 H Lymphocytes # 3.4 H Monocytes # 1.0 H Eosinophils # 0.0 Basophils # 0.1 Nucleated Red 7.5 H Blood Cells # Random Cortisol 47.0 Lab Scanned BLOOD TRANSFUSIO Report N Test 09/16/18 06:23 09/16/18 07:00 09/16/18 08:21 09/16/18 09:55 Sodium Level 133 L Potassium Level 4.2 Chloride Level 97 Carbon Dioxide 18 L Level Anion Gap 18 H Blood Urea 53 H Nitrogen Creatinine 5.48 H Est Glomerular 12 L Filtrat Rate mL/min Glucose Level 93 Calcium Level 8.6 Phosphorus Level 3.9 Magnesium Level 2.1 Blood Gas Blood arterial Specimen Source Arterial Blood 09/16/2018 8:30:53 Date Drawn AM Arterial Blood 7.211 *L pH (Temp corrected) Arterial Blood 40.2 pCO2 (Temp correct) Arterial Blood 65.5 L pO2 (Temp corrected) Arterial Blood 15.8 L HCO3 Arterial Blood -11.4 L Base Excess Arterial Blood 88.6 L Oxygen Saturatio n James Test ACCEPTAB Arterial Blood Right Radial Gas Puncture Site Arterial 0.3 Blood Carboxyhem oglobin Arterial Blood 0.3 Methemoglobin Blood Gas A-a O2 173.5 H Differential Oxyhemoglobin 88.1 L Percent Blood Gas 37.0 Temperature Blood Gas 20.0 Respiration Rate Blood Gas Actual 26 Respiration Rate Blood Gas VENT - AC Modality FiO2 40.0 Blood Gas Tidal 650.0 Volume Blood Gas Low 5.0 PEEP Setting Blood Gas Courtney FLORES RN Critical Value Read Back Blood Gas Stacy NEWBERRY [employer] Notified Whom Blood Gas 09/16/2018 9:03:41 Notified Time AM Bedside Glucose 97 Hemoglobin 8.3 L Hematocrit 32.7 L Home Meds No Active Prescriptions or Reported Meds Medications Current Medications IV Flush (NS 3 ml) 3 ml PER PROTOCOL IV ; Start 08/08/18 at 17:30 Ondansetron HCl (Zofran Inj) 4 mg Q6H PRN IV NAUSEA; Start 08/08/18 at 17:30 Naphazoline HCl (Clear Eyes / Naphcon) 2 drop QID BOTH EYES Last administered on 09/16/18 10:02; Admin Dose 2 DROP; Start 08/16/18 at 18:14 Acetaminophen (Tylenol Liquid) 650 mg Q6H PRN NGT MILD PAIN(1-3)OR ELEVATED TEMP Last administered on 09/16/18 10:20; Admin Dose 650 MG; Start 08/17/18 at 00:57 Lorazepam (Ativan) 1 mg Q6H PRN IV AGITATION Last administered on 09/16/18 04:40; Admin Dose 1 MG; Start 08/28/18 at 02:30 Morphine Sulfate (morphine) 2 mg Q2H PRN IV SEVERE PAIN LEVEL 7-10 Last administered on 09/10/18 17:39; Admin Dose 2 MG; Start 08/28/18 at 09:00 Scopolamine (Transderm-Scop) 1 patch Q72H TRANSDERM Last administered on 09/15/18 12:02; Admin Dose 1 PATCH; Start 08/31/18 at 11:30 IV Flush (NS 10 ml) 10 ml PRN PRN IV IV PROTOCOL; Start 09/06/18 at 17:30 Albumin Human 100 ml @ 100 mls/hr DURING DIALYSIS PRN IV BLOOD PRESSURE SUPPORT Last administered on 09/07/18 18:04; Admin Dose 100 MLS/HR; Start 09/07/18 at 09:30 Albuterol (Ventolin Hfa) 4 puff Q6H RESP THERAPY INH Last administered on 09/16/18 01:20; Admin Dose 4 PUFF; Start 09/08/18 at 09:00 Ipratropium [place] (Atrovent Hfa) 4 puff Q6HWA RESP THERAPY INH Last administered on 09/15/18 20:34; Admin Dose 4 PUFF; Start 09/08/18 at 09:00 Heparin Sodium (Porcine) (Heparin (1000 Units/ml)) 3,100 unit PRN CATHETER Last administered on 09/15/18 13:46; Admin Dose 3,100 UNIT; Start 09/08/18 at 14:00 Polyethylene Glycol (Miralax) 17 gm DAILY PRN GTB CONSTIPATION; Start 09/10/18 at 09:30 Acetylcysteine (Mucomyst) 1 ml Q6H RESP THERAPY NEB Last administered on 3/2/19at 01:20; Admin Dose 1 ML; Start 09/10/18 at 14:00 Phenylephrine HCl 80 mg/Dextrose 250 ml @ 18.75 mls/ hr TITRATE IV Last administered on 09/16/18at 07:38; Admin Dose 56.25 MLS/HR; Start 09/11/18 at 12:00 Folic Acid (Folic Acid) 1 mg DAILY GTB Last administered on 09/16/18at 10:05; Admin Dose 1 MG; Start 09/13/18 at 09:00 Zinc Sulfate (Zinc Sulfate) 220 mg DAILY GTB Last administered on 09/16/18at 10:05; Admin Dose 220 MG; Start 09/13/18 at 09:00 Ascorbic Acid (Vitamin C) 250 mg DAILY GTB Last administered on 09/16/18at 10:05; Admin Dose 250 MG; Start 09/13/18 at 09:00 Fluconazole/ Sodium Chloride 50 ml @ 50 mls/hr Q24H IVPB Last administered on 09/15/18at 14:22; Admin Dose 50 MLS/HR; Start 09/12/18 at 14:00 Norepinephrine 32 mg/Dextrose 250 ml @ 0.47 mls/hr TITRATE IV Last administered on 09/16/18at 03:07; Admin Dose 5.16 MLS/HR; Start 09/12/18 at 14:30 Diagnostic Test (Pha) (Accu-Chek) 1 ea 02 XX Last administered on 09/16/18at 02:00; Admin Dose 1 EA; Start 09/13/18 at 02:00 Miscellaneous Information 1 ea NOTE XX ; Start 09/12/18 at 21:30 Glucose (Glutose) 15 gm Q15M PRN PO DECREASED GLUCOSE; Start 09/12/18 at 21:30 Glucose (Glutose) 22.5 gm Q15M PRN PO DECREASED GLUCOSE; Start 09/12/18 at 21:30 Dextrose (D50w Syringe) 25 ml Q15M PRN IV DECREASED GLUCOSE Last administered on 09/13/18at 16:36; Admin Dose 25 ML; Start 09/12/18 at 21:30 Dextrose (D50w Syringe) 50 ml Q15M PRN IV DECREASED GLUCOSE; Start 09/12/18 at 21:30 Glucagon (Glucagen) 1 mg Q15M PRN IM DECREASED GLUCOSE; Start 09/12/18 at 21:30 Glucose (Glutose) 15 gm Q15M PRN BUCCAL DECREASED GLUCOSE; Start 09/12/18 at 21:30 Insulin Aspart (Novolog Insulin Pen) NOVOLOG *MILD* ALGORI... Q4H SC ; Start 09/13/18 at 00:00 Diagnostic Test (Pha) (Accu-Chek) 1 ea Q4 XX Last administered on 09/16/18at 09:00; Admin Dose 1 EA; Start 09/13/18 at 17:00 Pantoprazole (Protonix Iv) 40 mg BID@06,18 IV Last administered on 09/16/18 05:14; Admin Dose 40 MG; Start 09/14/18 at 18:00 Midazolam HCl 50 ml @ 1 mls/hr TITRATE IV Last administered on 09/16/18 03:22; Admin Dose 5 MLS/HR; Start 09/15/18 at 08:00 Metoclopramide HCl (Reglan) 5 mg Q8 IV Last administered on 09/16/18 05:14; Admin Dose 5 MG; Start 09/15/18 at 14:00 Fentanyl 100 ml @ 2.5 mls/hr TITRATE IV Last administered on 09/16/18 10:02; Admin Dose 10 MLS/HR; Start 09/15/18 at 11:30 Linezolid 300 ml @ 300 mls/hr Q12 IVPB Last administered on 09/16/18 10:05; Admin Dose 300 MLS/HR; Start 09/15/18 at 21:00 Ceftazidime 50 ml @ 100 mls/hr Q24H IVPB Last administered on 09/15/18at 16:41; Admin Dose 100 MLS/HR; Start 09/15/18 at 15:00 Total Parenteral Nutrition 1,000 ml @ 60 mls/hr [id number] IV Last administered on 09/16/18 08:17; Admin Dose 60 MLS/HR; Start 09/16/18 at 08:00 Miscellaneous Information (*Order Clarification Bulletin) MEDICATION REQUIRES CLARIFICATI... Q8H XX ; Start 09/15/18 at 19:30; Stop 09/17/18 at 19:29 Ibuprofen (Motrin) 600 mg Q6H PRN PO FEVER GREATER THAN 100.6; Start 3/2/19 at 10:00 Assessment/Plan Assessment/Plan (Daily) IMP: 1. Acute on chronic hypoxemic and hypercapnic respiratory failure, failed multiple weaning trials status post tracheostomy. Significant secretions, 2. G-tube was misplaced with tube feeding and abdominal cavity. No removed patient currently not tolerating nasogastric tube feeding. 3. History of obesity hypoventilation syndrome and probable obstructive sleep apnea 4. Leukocytosis With ongoing fevers and persistent diarrhea. 5. Acute renal failure. Now on hemodialysis 6. Persistent septic shock polymicrobial with Acinetobacter now likely colonized 7. Anemia but no active bleeding. RECS: 1. Vent support 2. Start D5W w 3 amps NaHCO3 gtt 3. Continue HD as tolerated 4. Pressors to MAP > 65 mm Hg 5. Follow lactate clearance 6. Abx per ID 7. Difficulty with performing CT abdomen due to weight and hemodynamic instability Prognosis guarded 40 min cc time ANAHY BOWIE MD Sep 16, 2018 11:32
[2018-09-16] MEDS ORDERED: SODIUM BICARBONATE (IV ADD) 150 MEQ in DEXTROSE 5% 850 ML IV SCH (13:00)
--- NOTE | 2018-09-16 14:26 | PN ---
Date/Time of Note Date/Time of Note DATE: 09/16/18 TIME: 14:21 Assessment/Plan Lines/Catheters IV Catheter Type (from Nrs): Trialysis Santiago in Place (from Nrs): No Assessment/Plan Assessment/Plan 32-year-old male with multisystem organ failure. WBC trending down today but still febrile and on 2 pressors. Has Belinda in urine as well as aspiration pneumonia. There is possibility of an abdominal abscess. However, he does not have peritonitis and is having bowel movements. Further, if he did have an abdominal abscess, it would be very surprising to cause this degree of sepsis. While he may have a fever and a white count from an abscess, it would be unlikely to cause pressor support. Recommend CT scan to further elucidate abdomen. If his weight is then allowing him to get a CT at this institution, he should be transferred in order to get a CT to evaluate his abdomen as a possible source of sepsis. Subjective 24 Hr Interval Summary Subjective hx not possible: pt critical, other (Intubated and sedated, responds to deep painful stimuli) Additional Comments Having bowel movements per Exam/Review of Systems Vital Signs Vitals Vital Signs Date Temp Pulse Resp B/P (MAP) Pulse Ox O2 O2 Flow FiO2 Time Delivery Rate 09/16/18 131 24 96/54 (68) 93 13:15 09/16/18 [place] 13:00 l Ventilato r Trach Collar 09/16/18 102.6 12:00 09/16/18 40 05:34 Intake and Output 09/15/18 09/15/18 09/16/18 1515:00 23:00 07:00 IntakeIntake Total 662.69 ml 1304.745 ml 565.76 ml OutputOutput Total 2250 ml 440 ml BalanceBalance -1587.31 ml 1304.745 ml 125.76 ml Exam Constitutional: other (Intubated and sedated.) Respiratory: diminished breath sounds Cardiovascular: other (Tachycardic) Gastrointestinal: soft, other (Nondistended. Minimally tender. Minimal bowel drainage from abdominal drain.) Results Result Diagram: 09/16/18 0955 09/16/18 0623 CHRIS BARCENAS MD Sep 16, 2018 14:26
[2018-09-16] MEDS: FLUCONAZOLE 100 MG/50 ML (PMX) 50 ML IVPB SCH (14:54)
--- NOTE | 2018-09-16 15:33 | CONS ---
Assessment/Plan Assessment/Plan Assessment/Plan (Daily) `1. Acute renal failure. Remains anuric. HD was done yesterday and planned for tomorrow 2. Respiratory failure . He has a tracheostomy is on mechanical ventilation. Per pulmonary. 3. Persistent fever. Antibiotics per ID 4. Morbid obesity 5. Encephalopathy , 6. Hypotension, on Pressors Consultation Date/Type/Reason Admit Date/Time Aug 08, 2018 at 17:18 Initial Consult Date 09/06/18 Type of Consult Nephrology Requesting Provider: TATI CARDOZA Date/Time of Note DATE: 09/16/18 TIME: 15:26 24 HR Interval Summary Free Text/Dictation Unresponsive on ventilator Exam/Review of Systems Exam Vitals Vital Signs Date Temp Pulse Resp B/P (MAP) Pulse Ox O2 O2 Flow FiO2 Time Delivery Rate 09/16/18 131 22 94 50 13:35 09/16/18 96/54 (68) 13:15 09/16/18 [place] 13:00 l Ventilato r Trach Collar 09/16/18 102.6 12:00 Intake and Output 09/15/18 09/15/18 09/16/18 1414:59 22:59 06:59 IntakeIntake Total 608.13 ml 1332.40 ml 575.735 ml OutputOutput Total 2250 ml 440 ml BalanceBalance -1641.87 ml 1332.40 ml 135.735 ml Neck: other (tracheostomy) Respiratory: clear to auscultation Cardiovascular: regular rate and rhythm Gastrointestinal: other (ostomy bag and drain in place); No bowel sounds Extremities: No edema Results Result Diagram: 09/16/18 0955 09/16/18 0623 Results 24hrs Laboratory Tests Test 09/15/18 16:44 09/15/18 20:20 09/15/18 22:01 09/15/18 23:56 Bedside Glucose 107 108 144 115 Test 09/16/18 01:21 09/16/18 03:03 09/16/18 04:03 09/16/18 04:05 Bedside Glucose 118 119 117 White Blood 13.0 #H Count Red Blood Count 3.17 L Hemoglobin 7.7 L Hematocrit 29.7 L Mean Corpuscular 93.7 Volume Mean Corpuscular 24.3 L Hemoglobin Mean Corpuscular 25.9 L Hemoglobin Hannah nt Red Cell 21.2 H Distribution Width Platelet Count 208 # Mean Platelet 11.6 H Volume Immature 6.700 H Granulocytes % Neutrophils % 59.3 Lymphocytes % 26.1 Monocytes % 7.4 Eosinophils % 0.1 Basophils % 0.4 Nucleated Red 57.4 H Blood Cells % Immature 0.870 H Granulocytes # Neutrophils # 7.7 H Lymphocytes # 3.4 H Monocytes # 1.0 H Eosinophils # 0.0 Basophils # 0.1 Nucleated Red 7.5 H Blood Cells # Random Cortisol 47.0 Test 09/16/18 05:06 09/16/18 05:17 09/16/18 06:23 09/16/18 07:00 Lab Scanned BLOOD TRANSFUSIO Report N Bedside Glucose 114 Sodium Level 133 L Potassium Level 4.2 Chloride Level 97 Carbon Dioxide 18 L Level Anion Gap 18 H Blood Urea 53 H Nitrogen Creatinine 5.48 H Est Glomerular 12 L Filtrat Rate mL/min Glucose Level 93 Calcium Level 8.6 Phosphorus Level 3.9 Magnesium Level 2.1 Blood Gas Blood arterial Specimen Source Arterial Blood 09/16/2018 8:30:53 Date Drawn AM Arterial Blood 7.211 *L pH (Temp corrected) Arterial Blood 40.2 pCO2 (Temp correct) Arterial Blood 65.5 L pO2 (Temp corrected) Arterial Blood 15.8 L HCO3 Arterial Blood -11.4 L Base Excess Arterial Blood 88.6 L Oxygen Saturatio n James Test ACCEPTAB Arterial Blood Right Radial Gas Puncture Site Arterial 0.3 Blood Carboxyhem oglobin Arterial Blood 0.3 Methemoglobin Blood Gas A-a O2 173.5 H Differential Oxyhemoglobin 88.1 L Percent Blood Gas 37.0 Temperature Blood Gas 20.0 Respiration Rate Blood Gas Actual 26 Respiration Rate Blood Gas VENT - AC Modality FiO2 40.0 Blood Gas Tidal 650.0 Volume Blood Gas Low 5.0 PEEP Setting Blood Gas Courtney FLORES RN Critical Value Read Back Blood Gas Stacy NEWBERRY RCP Notified Whom Blood Gas 09/16/2018 9:03:41 Notified Time AM Test 09/16/18 08:21 09/16/18 09:55 09/16/18 11:34 Bedside Glucose 97 125 Hemoglobin 8.3 L Hematocrit 32.7 L Medications Medication Current Medications IV Flush (NS 3 ml) 3 ml PER PROTOCOL IV ; Start 08/08/18 at 17:30 Ondansetron HCl (Zofran Inj) 4 mg Q6H PRN IV NAUSEA; Start 08/08/18 at 17:30 Naphazoline HCl (Clear Eyes / Naphcon) 2 drop QID BOTH EYES Last administered on 09/16/18 13:11; Admin Dose 2 DROP; Start 08/16/18 at 18:14 Acetaminophen (Tylenol Liquid) 650 mg Q6H PRN NGT MILD PAIN(1-3)OR ELEVATED TEMP Last administered on 09/16/18 10:20; Admin Dose 650 MG; Start 08/17/18 at 00:57 Lorazepam (Ativan) 1 mg Q6H PRN IV AGITATION Last administered on 09/16/18 04:40; Admin Dose 1 MG; Start 08/28/18 at 02:30 Morphine Sulfate (morphine) 2 mg Q2H PRN IV SEVERE PAIN LEVEL 7-10 Last administered on 09/10/18 17:39; Admin Dose 2 MG; Start 08/28/18 at 09:00 Scopolamine (Transderm-Scop) 1 patch Q72H TRANSDERM Last administered on 09/15/18 12:02; Admin Dose 1 PATCH; Start 08/31/18 at 11:30 IV Flush (NS 10 ml) 10 ml PRN PRN IV IV PROTOCOL; Start 09/06/18 at 17:30 Albumin Human 100 ml @ 100 mls/hr DURING DIALYSIS PRN IV BLOOD PRESSURE SUPPORT Last administered on 09/07/18 18:04; Admin Dose 100 MLS/HR; Start 09/07/18 at 09:30 Albuterol (Ventolin Hfa) 4 puff Q6H RESP THERAPY INH Last administered on 09/16/18 01:20; Admin Dose 4 PUFF; Start 09/08/18 at 09:00 Ipratropium [place] (Atrovent Hfa) 4 puff Q6HWA RESP THERAPY INH Last administered on 09/15/18 20:34; Admin Dose 4 PUFF; Start 09/08/18 at 09:00 Heparin Sodium (Porcine) (Heparin (1000 Units/ml)) 3,100 unit PRN CATHETER Last administered on 09/15/18 13:46; Admin Dose 3,100 UNIT; Start 09/08/18 at 14:00 Polyethylene Glycol (Miralax) 17 gm DAILY PRN GTB CONSTIPATION; Start 09/10/18 at 09:30 Acetylcysteine (Mucomyst) 1 ml Q6H RESP THERAPY NEB Last administered on 09/16/18 01:20; Admin Dose 1 ML; Start 09/10/18 at 14:00 Phenylephrine HCl 80 mg/Dextrose 250 ml @ 18.75 mls/ hr TITRATE IV Last administered on 09/16/18 11:58; Admin Dose 56.25 MLS/HR; Start 09/11/18 at 12:00 Folic Acid (Folic Acid) 1 mg DAILY GTB Last administered on 09/16/18 10:05; Admin Dose 1 MG; Start 09/13/18 at 09:00 Zinc Sulfate (Zinc Sulfate) 220 mg DAILY GTB Last administered on 09/16/18 10:05; Admin Dose 220 MG; Start 09/13/18 at 09:00 Ascorbic Acid (Vitamin C) 250 mg DAILY GTB Last administered on 09/16/18 10:05; Admin Dose 250 MG; Start 09/13/18 at 09:00 Fluconazole/ Sodium Chloride 50 ml @ 50 mls/hr Q24H IVPB Last administered on 09/16/18 14:54; Admin Dose 50 MLS/HR; Start 09/12/18 at 14:00 Norepinephrine 32 mg/Dextrose 250 ml @ 0.47 mls/hr TITRATE IV Last administered on 09/16/18 03:07; Admin Dose 5.16 MLS/HR; Start 09/12/18 at 14:30 Diagnostic Test (Pha) (Accu-Chek) 1 ea 02 XX Last administered on 09/16/18at 02:00; Admin Dose 1 EA; Start 09/13/18 at 02:00 Miscellaneous Information 1 ea NOTE XX ; Start 09/12/18 at 21:30 Glucose (Glutose) 15 gm Q15M PRN PO DECREASED GLUCOSE; Start 09/12/18 at 21:30 Glucose (Glutose) 22.5 gm Q15M PRN PO DECREASED GLUCOSE; Start 09/12/18 at 21:30 Dextrose (D50w Syringe) 25 ml Q15M PRN IV DECREASED GLUCOSE Last administered on 09/13/18at 16:36; Admin Dose 25 ML; Start 09/12/18 at 21:30 Dextrose (D50w Syringe) 50 ml Q15M PRN IV DECREASED GLUCOSE; Start 09/12/18 at 21:30 Glucagon (Glucagen) 1 mg Q15M PRN IM DECREASED GLUCOSE; Start 09/12/18 at 21:30 Glucose (Glutose) 15 gm Q15M PRN BUCCAL DECREASED GLUCOSE; Start 09/12/18 at 21:30 Insulin Aspart (Novolog Insulin Pen) NOVOLOG *MILD* ALGORI... Q4H SC ; Start 09/13/18 at 00:00 Diagnostic Test (Pha) (Accu-Chek) 1 ea Q4 XX Last administered on 09/16/18at 13:01; Admin Dose 1 EA; Start 09/13/18 at 17:00 Pantoprazole (Protonix Iv) 40 mg BID@06,18 IV Last administered on 09/16/18 05:14; Admin Dose 40 MG; Start 09/14/18 at 18:00 Midazolam HCl 50 ml @ 1 mls/hr TITRATE IV Last administered on 09/16/18 03:22; Admin Dose 5 MLS/HR; Start 09/15/18 at 08:00 Metoclopramide HCl (Reglan) 5 mg Q8 IV Last administered on 09/16/18 14:36; Admin Dose 5 MG; Start 09/15/18 at 14:00 Fentanyl 100 ml @ 2.5 mls/hr TITRATE IV Last administered on 09/16/18 10:02; Admin Dose 10 MLS/HR; Start 09/15/18 at 11:30 Linezolid 300 ml @ 300 mls/hr Q12 IVPB Last administered on 09/16/18 10:05; Admin Dose 300 MLS/HR; Start 09/15/18 at 21:00 Ceftazidime 50 ml @ 100 mls/hr Q24H IVPB Last administered on 09/15/18at 16:41; Admin Dose 100 MLS/HR; Start 09/15/18 at 15:00 Total Parenteral Nutrition 1,000 ml @ 60 mls/hr [id number] IV Last administered on 09/16/18 08:17; Admin Dose 60 MLS/HR; Start 09/16/18 at 08:00 Miscellaneous Information (*Order Clarification Bulletin) MEDICATION REQUIRES CLARIFICATI... Q8H XX ; Start 09/15/18 at 19:30; Stop 09/17/18 at 19:29 Ibuprofen (Motrin) 600 mg Q6H PRN PO FEVER GREATER THAN 100.6; Start 09/16/18 at 10:00 Sodium Bicarbonate 150 meq/Dextrose 1,000 ml @ 75 mls/hr [id number] IV Last administered on 09/16/18at 13:11; Admin Dose 75 MLS/HR; Start 09/16/18 at 13:00 NICA PAK MD Sep 16, 2018 15:33
[2018-09-16] MEDS: IBUPROFEN 600 MG TAB PO PRN ×2 (15:34→22:57)
[2018-09-16] MEDS: CEFTAZIDIME 1GM/50 ML (PMX) 50 ML IVPB SCH (15:57)
[2018-09-16] MEDS ORDERED: VASOPRESSIN 60 UNIT in DEXTROSE 5% 57 ML IV SCH (20:30)
[2018-09-16] MEDS ORDERED: ALBUMIN HUMAN 25% 100 ML IV ONE (20:30)
[2018-09-16] MEDS: DOPamine-D5W 1.6 MG/ML 250 ML IV SCH ×2 (21:26→22:32)
[2018-09-16] MEDS ORDERED: NA BICARBONATE 8.4% 50 ML SYG IV STA (22:25)
[2018-09-17] VITALS (14 sets, daily range): BP systolic 30–170; BP diastolic 14–100; PULSE 0–135; RESP 20–39
[2018-09-17] MEDS ORDERED: EPINEPHrine 0.1 MG/ML SYG ONE
[2018-09-17] MEDS ORDERED: NA BICARBONATE 8.4% 50 ML SYG ONE
[2018-09-17] MEDS ORDERED: DEXTROSE 50% 50 ML SYRINGE ONE
[2018-09-17] MEDS ORDERED: CA CHLORIDE 10% 10 ML SYRINGE ONE
[2018-09-17] MEDS: METOCLOPRAMIDE 10 MG INJ IV SCH (00:05)
[2018-09-17] MEDS: DOPamine-D5W 1.6 MG/ML 250 ML IV SCH (00:13)
[2018-09-17] MEDS ORDERED: NA BICARBONATE 8.4% 50 ML SYG IV ONE (00:35)
[2018-09-17] MEDS: ACCU-CHEK XX SCH (01:00)
[2018-09-17] MEDS ORDERED: ACETAMINOPHEN 1000MG/100ML IV 100 ML IVPB PRN (01:00)
[2018-09-17] MEDS: TPN 1,000 ML IV SCH (01:02)
[2018-09-17] MEDS: ALBUTEROL HFA 8 GM INHALER INH SCH (02:00)
[2018-09-17] MEDS: ACETYLCYSTEINE 20% 4 ML VIAL NEB SCH (02:00)
[2018-09-17] MEDS ORDERED: EPINEPHrine 1 MG INJ ONE (02:01)
[2018-09-17] MEDS ORDERED: EPINEPHrine 4 MG in DEXTROSE 5% 246 ML IV SCH (02:15)
--- NOTE | 2018-09-17 07:53 | EN ---
Date/Time of Note Date/Time of Note DATE: 09/17/18 TIME: 07:50 Event Note Medicine Medicine Event Note Days note There was a CODE BLUE that was activated earlier this morning. Patient has been progressively more hypotensive and he was eventually placed on 4 pressors. He was also hypoxic. An ABG shows a pH of 6.9 with a bicarb of 10. Patient has already been on bicarb drip. He was given several bicarb IV push. Patient was successfully resuscitated with the first code, but unfortunately pelvis was lost shortly after. After about 13 minutes of resuscitation, the family wanted it to be stopped. Patient was pronounced at 2:31 AM on 09/17/18. Multiple family members including the patient's mother was at the bedside. . MARILUZ DAVIDSON MD Sep 17, 2018 07:53
--- NOTE | 2018-09-17 08:46 | DES ---
Date/Time of Note Date/Time of Note DATE: 09/17/18 TIME: 08:33 Discharge/ Summary Admission/Discharge Info Admit Date/Time Aug 08, 2018 at 17:18 Final Diagnosis 1. Acute on chronic hypoxemic and hypercapnic respiratory failure, failed multiple weaning trials status post tracheostomy. Significant secretions 2. G-tube was misplaced with tube feeding and abdominal cavity-status post IR guided drainage and G-tube removed, then placed on TPN 3. History of obesity hypoventilation syndrome and probable obstructive sleep apnea - s/p intubation then trach 4. Leukocytosis - With ongoing fevers and persistent diarrhea- sec to multiple infx 5. Acute renal failure- on hemodialysis 6. Persistent septic shock - polymicrobial with Acinetobacter URI, candidia esophagitis and UTI, enterococcus abd infx- likely colonized 7. Anemia - but no active bleeding. 8. Severe Obesity Preliminary Cause of Res distress - weeks Septic shock - days Admit History 32 yo morbidly obese man with ANDREW/OHS who presents with cough and shortness of breath. Most of this history taken from ED staff and patient's family. patient is minimally responsive. He was hospitalized here in February and Jun 2018 both times for severe hypercapnia which improved after a few days of BiPAP. [employer] won't pay for a BiPAP machine at home unless he gets a sleep study which he hasn't been able to do. So about a week ago a family friend gave him a used BiPAP machine which he has been using every night but the mask is too small. 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 About 2 days ago he developed cough productive of sputum. No fevers, no chills. Today he was unable to catch his breath at rest and so presented to the ED. He walked into the ED saturating 80% on room air and was placed on BiPAP at 100% FiO2. Also elevated temp to 100.0, tachy to 121. WBC was 16.1 and CXR showed multifocal patchy opacities. Hospital Course Patient was admitted, had a difficult hospitalization which required ICU care, intubation, eventually tracheostomy placement. Patient was seen by multiple specialists during his hospital stay including pulmonary, infectious disease, renal, cardiothoracic surgery, neurology, GI, surgery teams. Patient found with acute on chronic hypoxemic and hypercapnic respiratory failure and had to be intubated. He failed multiple weaning trials and eventually had tracheostomy placement. He also has significant secretions. He was also treated for multipl e infections including multidrug resistant Actinobacter respiratory infection, as well as Belinda esophagitis, Belinda UTI, enterococcus abdominal infection.Patient also suffered from metabolic encephalopathy, most clinically consistent with an acute and multifactorial toxic type. Patient at one point had G-tube placed as well but this apparently was misplaced with tube feeding fo und in the abdominal cavity afterwards, and he underwent IR drainage of this collection which appeared to clear up at least from the original site G-tube was placed, however there was still another abdominal infection in a different area right lower quadrant of the abdomen although the drainage tube appeared to be correctly draining the material found in this particular area of the abdomen. Patient because of his weight unfortunately was not able to have any imaging such as CT scan or MRI performed, however ultrasounds and chest x-rays were performed at the bedside. Despite significant treatment including TPN, multiple antibiotics, tracheostomy placement but patient suffered from septic shock and worsening lactic acidosis. He also went into renal failure and had to have dialysis which he underwent a few sessions of this during the hospital stay. The last 96 hours of admission patient became more hypotensive and he was eventually placed on 4 pressors on the pantograph watcher of September 17, 2018. He was also more hypoxic. An ABG at that time shows a pH of 6.9 with a bicarb of 10. Patient had already been on bicarb drip ordered the day before. He was given several bicarb IV pushes as well. Unfortunately patient coded early in the morning on September 17, 2018; patient was successfully resuscitated with the first code, but unfortunately pelvis was lost shortly after. After about 13 minutes of resuscitation, the family wanted it to be stopped. Patient was pronounced at 2:31 AM on 09/17/18. Multiple family members including the patient's mother was at the bedside. Pending Labs/Cultures Laboratory Tests Test 09/16/18 09:55 09/16/18 11:34 09/16/18 15:15 09/16/18 16:22 Hemoglobin 8.3 g/dl (14.0-18.0 ) Hematocrit 32.7 % (42.0-52.0) Bedside 125 112 Glucose mg/dL (70-220) mg/dL (70-220) Lactic Acid 11.1 Level mmol/L (0.5-2. 0) Test 09/16/18 20:15 09/16/18 21:42 09/16/18 22:56 09/16/18 23:47 Bedside 115 77 Glucose mg/dL (70-220) mg/dL (70-220) Blood Gas Blood arterial Specimen Source Arterial Blood 09/16/2018 10:09 Date Drawn :46 PM Arterial Blood 6.938 (7.350-7 pH .450) (Temp corrected ) Arterial Blood 50.1 pCO2 mmhg (35-45) (Temp correct) Arterial Blood 81.1 pO2 mmHG (80-100.0 (Temp corrected ) ) Arterial Blood 10.5 HCO3 mmol/L (22.0-2 6.0) Arterial Blood -20.9 Base Excess mmol/L (-3.0-3 ) Arterial Blood 88.8 Oxygen Saturati mmHG (95.0-98. on 0) James Test ACCEPTAB Arterial Blood Right Radial Gas Puncture Site Arterial 0.3 Blood Carboxyhe % (0.0-3.0) moglobin Arterial Blood 0.5 Methemoglobin % (0.0-1.5) Blood Gas A-a 581.8 O2 mmHg (7.0-24.0 Differential ) Oxyhemoglobin 88.1 Percent % (93.0-99.0) Blood Gas 37.0 C Temperature Blood Gas 20.0 Respiration Rate Blood Gas 20 Actual Respiration Rat e Blood Gas VENT - AC Modality FiO2 100.0 % Blood Gas Tidal 650.0 mL Volume Blood Gas Low 5.0 cmH2O PEEP Setting Blood Gas 34.0 Inspiratory Pressure Blood Gas GLOBER,M.R.N. Critical Value Read Back Blood Gas MOI GRANADOS Notified Whom Blood Gas 09/16/2018 10:21 Notified Time :52 PM Lactic Acid 17.0 Level mmol/L (0.5-2. 0) Test 09/17/18 00:30 09/17/18 01:57 Blood Gas Blood arterial Specimen Source Arterial Blood 09/17/2018 12:00: Date Drawn 45 AM Arterial Blood 6.964 (7.350-7. pH 450) (Temp corrected ) Arterial Blood 47.9 pCO2 mmhg (35-45) (Temp correct) Arterial Blood 71.7 pO2 mmHG (80-100.0) (Temp corrected ) Arterial Blood 10.6 HCO3 mmol/L (22.0-26 .0) Arterial Blood -20.2 Base Excess mmol/L (-3.0-3) Arterial Blood 86.1 Oxygen Saturati mmHG (95.0-98.0 on ) James Test ACCEPTAB Arterial Blood Right Radial Gas Puncture Site Arterial 0.3 % (0.0-3.0) Blood Carboxyhe moglobin Arterial Blood 0.6 % (0.0-1.5) Methemoglobin Blood Gas A-a 593.4 O2 mmHg (7.0-24.0) Differential Oxyhemoglobin 85.3 Percent % (93.0-99.0) Blood Gas 37.0 C Temperature Blood Gas 20.0 Respiration Rate Blood Gas 20 Actual Respiration Rat e Blood Gas VENT - AC Modality FiO2 100.0 % Blood Gas Tidal 650.0 mL Volume Blood Gas Low 5.0 cmH2O PEEP Setting Blood Gas 37.0 Inspiratory Pressure Blood Gas YAS,R.R.N. Critical Value Read Back Blood Gas MOI GRANADOS Notified Whom Blood Gas 09/17/2018 12:10: Notified Time 49 AM Bedside 74 Glucose mg/dL (70-220) RC GO Sep 17, 2018 08:44
== END 2018-09-17 02:32 | disposition expired | DRG 4 ==
LOC: E/R 14:16 → ICU 17:18
PROVIDERS: ADMIT Internal Medicine; ATTEND Hospitalist
PROC: 5A1955Z Respiratory Ventilation, Greater than 96 Consecutive Hours (ICD-10-PCS; 2018-08-09)
PROC: 0BH17EZ Insertion of Endotracheal Airway into Trachea, Via Natural or Artificial Opening (ICD-10-PCS; 2018-08-09)
PROC: 05HY33Z Insertion of Infusion Device into Upper Vein, Percutaneous Approach (ICD-10-PCS; principal; 2018-08-12)
PROC: 05PYX3Z Removal of Infusion Device from Upper Vein, External Approach (ICD-10-PCS; 2018-08-13)
PROC: 0DH63UZ Insertion of Feeding Device into Stomach, Percutaneous Approach (ICD-10-PCS; 2018-08-23)
PROC: 0B110F4 Bypass Trachea to Cutaneous with Tracheostomy Device, Open Approach (ICD-10-PCS; 2018-08-24)
PROC: 02HV33Z Insertion of Infusion Device into Superior Vena Cava, Percutaneous Approach (ICD-10-PCS; 2018-09-06)
PROC: 5A1D70Z Performance of Urinary Filtration, Intermittent, Less than 6 Hours Per Day (ICD-10-PCS; 2018-09-07)
PROC: 06HY33Z Insertion of Infusion Device into Lower Vein, Percutaneous Approach (ICD-10-PCS; 2018-09-07)
PROC: 0DP6XUZ Removal of Feeding Device from Stomach, External Approach (ICD-10-PCS; 2018-09-09)
PROC: 0DJ08ZZ Inspection of Upper Intestinal Tract, Via Natural or Artificial Opening Endoscopic (ICD-10-PCS; 2018-09-11)
PROC: 0W9F30Z Drainage of Abdominal Wall with Drainage Device, Percutaneous Approach (ICD-10-PCS; 2018-09-11)
DX: A41.9 Sepsis, unspecified organism (principal); T80.211A Bloodstream infection due to central venous catheter, initial encounter; J96.02 Acute respiratory failure with hypercapnia; J96.01 Acute respiratory failure with hypoxia; J15.6 Pneumonia due to other Gram-negative bacteria; G92 Toxic encephalopathy; R65.21 Severe sepsis with septic shock; K22.11 Ulcer of esophagus with bleeding; Z68.43 Body mass index [BMI] 50.0-59.9, adult; E66.2 Morbid (severe) obesity with alveolar hypoventilation; I50.30 Unspecified diastolic (congestive) heart failure; K52.1 Toxic gastroenteritis and colitis; N17.9 Acute kidney failure, unspecified; K56.609 Unspecified intestinal obstruction, unspecified as to partial versus complete obstruction; T85.528A Displacement of other gastrointestinal prosthetic devices, implants and grafts, initial encounter; B37.81 Candidal esophagitis; B37.49 Other urogenital candidiasis; L02.211 Cutaneous abscess of abdominal wall; R65.20 Severe sepsis without septic shock; J44.9 Chronic obstructive pulmonary disease, unspecified; B36.9 Superficial mycosis, unspecified; I87.2 Venous insufficiency (chronic) (peripheral); E83.52 Hypercalcemia; Y84.8 Other medical procedures as the cause of abnormal reaction of the patient, or of later complication, without mention of misadventure at the time of the procedure; Y83.2 Surgical operation with anastomosis, bypass or graft as the cause of abnormal reaction of the patient, or of later complication, without mention of misadventure at the time of the procedure; R63.3 Feeding difficulties; D64.9 Anemia, unspecified; T36.95XA Adverse effect of unspecified systemic antibiotic, initial encounter; Z16.24 Resistance to multiple antibiotics; Z87.891 Personal history of nicotine dependence
CPT/HCPCS: 31500; 36430; 36600; 71045; 74018; 74250; 76700; 76705; 76775; 76937; 76942; 80048; 80053; 80061; 80202; 81001; 81003; 82140; 82150; 82533; 82550; 82553; 82570; 82803; 82962; 83036; 83605; 83690; 83735; 83970; 84100; 84134; 84300; 84478; 84484; 85014; 85018; 85025; 85610; 85730; 86704; 86706; 86803; 86850; 86900; 86901; 86920; 87040; 87045; 87070; 87075; 87081; 87086; 87340; 87400; 87449; 89220; 90935; 92950; 93005; 93306; 93970; 94002; 94003; 94640; 94644; 94660; 94664; 94770; 96365; 96375; 97110; 97163; C1729; C1752; C1769; C9113; J0131; J0171; J0456; J0690; J0692; J0696; J0713; J1265; J1450; J1630; J1642; J1644; J1650; J1815; J1940; J2001; J2060; J2185; J2250; J2270; J2370; J2405; J2543; J2765; J2920; J2930; J3010; J3243; J3370; J3480; J7030; J7040; J7042; J7050; J7070; J7120; P9016; P9047